=== PATIENT | male | born 1935 | race Caucasian/White ===

== ENCOUNTER 2017-08-08 23:18 | Emergency (ER) | payer MEDICARE ==
[2017-08-08 23:38] VITALS: O2SAT 96
[2017-08-08] MEDS ORDERED: Sodium Chloride 0.9% 1000 ML 1,000 ML IV SCH (23:45)
[2017-08-08] MEDS ORDERED: APRESOLINE 20 MG/ML INJ IV ONE (23:49)
--- NOTE | 2017-08-09 00:04 | ERPHSYRPT ---
- History of Present Illness Time Seen by Provider: 08/08/17 23:50 Exam Limitations: other Patient Subjective Stated Complaint: increased BP x 3-4 days, PMD notified client to come seek eval in ER Triage Nursing Assessment: increased BP, no other symptoms on assessment. Physician History: PATIENT WITH A HISTORY OF HYPERTENSION COMPLAINS OF ELEVATE BLOOD PRESSURE FOR 4 -5 DAYS. HAS HISTORY OF TRANSIENT ISCHEMIC ATTACK. DENIES HEADACHE, BLURRED VISION, DIZZINESS, NUMGNESSS, TINGLTINT OR WEAKNESS IN EXTREMITIES. Timing/Duration: day(s) Severity: moderate Modifying Factors: Improves With: nothing Associated Symptoms: denies symptoms Allergies/Adverse Reactions: No Known Drug Allergies Allergy (Verified 02/03/15 17:25) Home Medications: Aspirin [Aspir 81] 81 mg PO DAILY 07/23/12 [History] Ferrous Sulfate 325 mg [Feosol 325 mg] 325 mg PO DAILY 09/21/12 [History] Folic Acid 1 mg [Folate 1 mg] 1 mg PO DAILY 09/21/12 [History] Glipizide/Metformin HCl [Glipizide-Metformin 5-500 mg] 2 each PO BID 09/21/12 [ History] Isosorbide Mononitrate 30 mg [Imdur 30 MG] 30 mg PO DAILY 09/21/12 [History ] Potassium Chloride 10 Meq Tab* [Klor Con 10 MEQ] 10 meq PO BID 09/21/12 [ History] Pravastatin Sodium 10 mg [Pravachol 10 MG] 10 mg PO HS 09/21/12 [History] Carvedilol 6.25 mg [Coreg 6.25 MG] 6.25 mg PO BID 02/04/15 [History] Clopidogrel Bisulfate 75 mg [PLAVIX 75 MG Tablet] 75 mg PO DAILY 02/04/15 [History] Lisinopril/Hydrochlorothiazide [Lisinopril-Hctz 20-25 mg Tab] 1 each PO DAILY [History] Naproxen Sodium 220 mg [Aleve 220 MG] 220 mg PO BIDPRN PRN 02/04/15 [ History] Ranitidine HCl [Zantac] 150 mg PO BID 02/04/15 [History] Tamsulosin HCl 0.4 mg [Flomax 0.4 MG] 1 tab PO DAILY 08/08/17 [History] Vitamin E 1 tab PO BID 08/08/17 [History] Hx Tetanus, Diphtheria Vaccination/Date Given: Yes Hx Influenza Vaccination/Date Given: Yes Hx Pneumococcal Vaccination/Date Given: Yes Immunizations Up to Date: Yes - Review of Systems Constitutional: No Fever, No Chills Eyes: No Symptoms Ears, Nose, & Throat: No Symptoms Respiratory: No Symptoms, No Cough, No Dyspnea Cardiac: No Symptoms, No Chest Pain, No Edema, No Syncope Abdominal/Gastrointestinal: No Symptoms, No Abdominal Pain, No Nausea, No Vomiting, No Diarrhea Genitourinary Symptoms: No Symptoms, No Dysuria Musculoskeletal: No Symptoms, No Back Pain, No Neck Pain Skin: No Rash Neurological: No Dizziness, No Focal Weakness, No Sensory Changes Psychological: No Symptoms Endocrine: No Symptoms All Other Systems: Reviewed and Negative - Past Medical History Pertinent Past Medical History: Yes Neurological History: TIA ENT History: No Pertinent History Cardiac History: Congenital Heart Disease, Hypertension Endocrine Medical History: Diabetes Type II Musculoskeletal History: Osteoarthritis - Past Surgical History Past Surgical History: Yes Cardiac: Cardiac Stent Gastrointestinal: Hernia Repair Musculoskeletal: Orthopedic Surgery Other Surgical History: Nasal surgery - Social History Smoking Status: Never smoker Exposure to second hand smoke: No Drug Use: none Patient Lives Alone: Yes Significant Family History: no pertinent family hx - Nursing Vital Signs Nursing Vital Signs: Initial Vital Signs Pulse Rate 70 08/08/17 23:37 Respiratory Rate 20 08/08/17 23:37 Blood Pressure 205/113 08/08/17 23:37 O2 Sat by Pulse Oximetry 96 08/08/17 23:37 Pain Scale Pain Intensity 0 - Physical Exam General Appearance: no apparent distress, alert Eye Exam: PERRL/EOMI, eyes nml inspection Ears, Nose, Throat Exam: normal ENT inspection, TMs normal, pharynx normal, moist mucous membranes Neck Exam: normal inspection, non-tender, supple, full range of motion Respiratory Exam: normal breath sounds, lungs clear, No respiratory distress Cardiovascular Exam: regular rate/rhythm, normal heart sounds, normal peripheral pulses Gastrointestinal/Abdomen Exam: soft, normal bowel sounds, No tenderness, No mass Back Exam: normal inspection, normal range of motion, No CVA tenderness, No vertebral tenderness Extremity Exam: normal inspection, normal range of motion, pelvis stable Neurologic Exam: alert, oriented x 3, cooperative, normal mood/affect, nml cerebellar function, nml station & gait, sensation nml, No motor deficits Skin Exam: normal color, warm, dry, No rash Lymphatic Exam: No adenopathy SpO2 Interpretation: normal SpO2: 96 Oxygen Delivery: Room Air - Course EKG Interpreted by Me: RATE, Sinus Rhythm, NORMAL AXIS Ordered Tests: Active Orders 24 hr Category Date Time Status Python Developer STAT Care 08/08/17 23:46 Active EKG-ER Only STAT Care 08/08/17 23:46 Active Oxygen-ED Only NASAL CANNULA 2 lpm Care 08/08/17 23:46 Active CHEST 1 VIEW (PORTABLE) Stat Exams 08/08/17 23:46 Taken TROPONIN Q3H Lab 08/09/17 02:46 Ordered TROPONIN Q3H Lab 08/09/17 05:46 Ordered TROPONIN Q3H Lab 08/09/17 08:46 Ordered TROPONIN Q3H Lab 08/09/17 11:46 Ordered Medication Summary Generic Name Dose Route Start Last Admin Trade Name Freq PRN Reason Stop Dose Admin Sodium Chloride 1,000 mls @ 50 mls/hr 08/08/17 23:45 08/09/17 00:35 Sodium Chloride 0.9% 1000 Ml IV 09/07/17 23:44 50 mls/hr .Q20H ART Administration Discontinued Medications Generic Name Dose Route Start Last Admin Trade Name Freq PRN Reason Stop Dose Admin Hydralazine HCl 20 mg 08/08/17 23:49 08/09/17 00:36 Apresoline 20 Mg/Ml Inj IV 08/08/17 23:50 20 mg STAT ONE Administration Hydralazine HCl Confirm 08/09/17 00:11 Apresoline 20 Mg/Ml Inj Administered 08/09/17 00:12 Dose 20 mg .ROUTE .STK-MED ONE Metoprolol Tartrate 2.5 mg 08/09/17 01:07 08/09/17 01:12 Lopressor 5 Mg/5 Ml Injection IV 08/09/17 01:08 Not Given STAT ONE Lab/Rad Data: Laboratory Result Diagrams 08/08/17 00:30 08/08/17 00:30 Laboratory Results 08/08/17 08/08/17 08/08/17 Range/Units 00:30 00:30 00:30 WBC 5.9 (4.0-10.5) K/mm3 RBC 4.13 (4.1-5.6) M/mm3 Hgb 13.2 (12.5-18.0) gm/dl Hct 40.0 L (42-50) % MCV 96.9 (78-100) fl MCH 32.0 (26-32) pg MCHC 33.0 (32-36) g/dl RDW 13.2 (11.5-14.0) % Plt Count 174 (150-450) K/mm3 MPV 10.9 H (6-9.5) fl Gran % 53.5 (36.0-66.0) % Lymphocytes % 30.0 (24.0-44.0) % Monocytes % 13.3 H (0.0-12.0) % Eosinophils % 2.9 (0.00-5.0) % Basophils % 0.3 (0.0-0.4) % Basophils # 0.02 (0-0.4) INR 0.94 (0.8-3.0) Sodium 141 (136-145) mEq/L Potassium 4.1 (3.5-5.1) mEq/L Chloride 106 (98-107) mEq/L Carbon Dioxide 22.8 (21-32) mEq/L Anion Gap 16.5 H (5-15) MEQ/L BUN 27 H (9-20) mg/dL Creatinine 1.46 H (0.55-1.30) mg/dl Estimated GFR 49 ML/MIN Glucose 176 H (70-110) MG/DL Calcium 9.3 (8.5-10.1) mg/dL Total Bilirubin 0.20 (0.2-1.0) mg/dL AST 16 (15-37) U/L ALT 23 (12-78) U/L Alkaline Phosphatase 73 (46-116) U/L Troponin I (0.000-0.056) ng/ml NT-Pro-B Natriuret Pep 155 (0-450) pg/ml Serum Total Protein 6.6 (6.4-8.2) gm/dL Albumin 3.4 (3.4-5.0) g/dL 08/08/17 Range/Units 00:30 WBC (4.0-10.5) K/mm3 RBC (4.1-5.6) M/mm3 Hgb (12.5-18.0) gm/dl Hct (42-50) % MCV (78-100) fl MCH (26-32) pg MCHC (32-36) g/dl RDW (11.5-14.0) % Plt Count (150-450) K/mm3 MPV (6-9.5) fl Gran % (36.0-66.0) % Lymphocytes % (24.0-44.0) % Monocytes % (0.0-12.0) % Eosinophils % (0.00-5.0) % Basophils % (0.0-0.4) % Basophils # (0-0.4) INR (0.8-3.0) Sodium (136-145) mEq/L Potassium (3.5-5.1) mEq/L Chloride (98-107) mEq/L Carbon Dioxide (21-32) mEq/L Anion Gap (5-15) MEQ/L BUN (9-20) mg/dL Creatinine (0.55-1.30) mg/dl Estimated GFR ML/MIN Glucose (70-110) MG/DL Calcium (8.5-10.1) mg/dL Total Bilirubin (0.2-1.0) mg/dL AST (15-37) U/L ALT (12-78) U/L Alkaline Phosphatase (46-116) U/L Troponin I < 0.017 (0.000-0.056) ng/ml NT-Pro-B Natriuret Pep (0-450) pg/ml Serum Total Protein (6.4-8.2) gm/dL Albumin (3.4-5.0) g/dL - Progress Progress Note: 08/09/17 00:05 IV HADRALAZINE 08/09/17 00:08 IV HYDRALAZINE 20MG. 08/09/17 02:31 BP IMPORVED TO BP 166/[address] Ponce (DISCUSSED WITH DR PONCE AT 0230 FOR FOLLOWUP IN OFFICE TODAY.) Counseled pt/family regarding: lab results, diagnosis, rad results - Departure Time of Disposition: 02:35 Departure Disposition: Home Clinical Impression: HYPERTENSION Condition: Stable Critical Care Time: No Referrals: TIMOTHY PONCE MD [Primary Care Provider] - Additional Instructions: BEGIN TAKING HYDRALAZINE 10MG TWICE DAILY FOR 2 WEEKS/ CALL DR PONCE TODAY TO SCHEDULED APPOINTMENT Prescriptions: Hydralazine HCl 10 mg PO BID #30 tablet Hydralazine HCl 10 mg PO BID #30 tablet
[2017-08-09] MEDS ORDERED: APRESOLINE 20 MG/ML INJ ONE (00:11)
[2017-08-09] MEDS ORDERED: Sodium Chloride 0.9% 1000 ML 1,000 ML ONE (00:11)
[2017-08-09 00:37] LABS: BASOPHIL % 0.3 % (0.0-0.4); Basophil (Absolute #) 0.02 (0-0.4); Eosinophil % 2.9 % (0.00-5.0); Eosinophil (Absolute #) 0.17 (0-0.5); Granulocyte Absolute (ANC) 3.14 (1.4-6.9); Granulocytes % 53.5 % (36.0-66.0); Hemoglobin 13.2 gm/dl (12.5-18.0); Lymphocyte (Absolute #) 1.76 (1.0-4.6); Mean Cell Volume 96.9 fl (78-100); Mean Platelet Volume 10.9 fl (6-9.5); Monocyte (Absolute #) 0.78 (0.0-1.3); Monocytes % 13.3 % (0.0-12.0); Platelet Count 174 K/mm3 (150-450); Red Blood Count 4.13 M/mm3 (4.1-5.6); Red Cell Distribution Width 13.2 % (11.5-14.0); White Blood Count 5.9 K/mm3 (4.0-10.5)
[2017-08-09 00:50] LABS: INR 0.94 (0.8-3.0)
[2017-08-09 01:06] LABS: ALBUMIN 3.4 g/dL (3.4-5.0); ANION GAP 16.5 MEQ/L (5-15); BILIRUBIN,TOTAL 0.2 mg/dL (0.2-1.0); Calcium 9.3 mg/dL (8.5-10.1); Carbon Dioxide 22.8 mEq/L (21-32); Creatinine 1 1.46 mg/dl (0.55-1.30); Potassium 4.1 mEq/L (3.5-5.1); Total Protein 6.6 gm/dL (6.4-8.2)
[2017-08-09] MEDS ORDERED: LOPRESSOR 5 MG/5 ML INJECTION IV ONE (01:07)
[2017-08-09 01:51] VITALS: BP 138/78
[2017-08-09 02:41] VITALS: PULSE 71
--- NOTE | 2017-08-09 08:52 | XRAY ---
Indication: Cough. Comparison: February 16, 2015. Portable chest is clear. Heart and mediastinal structures within normal limits. Bony thorax intact again with mild osteopenia and degenerative changes. Impression: Nonacute chest.
== END 2017-08-09 03:00 | disposition home or self-care (01) ==
LOC: ED 23:18
DX: I10 Essential (primary) hypertension (principal); E11.9 Type 2 diabetes mellitus without complications; Z79.4 Long term (current) use of insulin; M19.90 Unspecified osteoarthritis, unspecified site; I51.9 Heart disease, unspecified; Z86.73 Personal history of transient ischemic attack (TIA), and cerebral infarction without residual deficits; Z79.899 Other long term (current) drug therapy
CPT/HCPCS: 36000; 36415; 71045; 80053; 83880; 84484; 85025; 85610; 93005; 93041; 96360; 96361; 96374; 99284; J0360

== ENCOUNTER 2017-08-30 14:39 | Observation (INO) | payer MEDICARE ==
[2017-08-30] MEDS ORDERED: Sodium Chloride 0.9% 1000 ML 1,000 ML IV STA (15:41)
--- NOTE | 2017-08-30 15:41 | ERPHSYRPT ---
- History of Present Illness Time Seen by Provider: 08/30/17 15:39 Source: patient, EMS Exam Limitations: other (dementia) Patient Subjective Stated Complaint: DIZZINESS FOR SEVERAL DAYS GETTING WORSE TODAY. STATES IT STARTED AFTER MEDICATION ADJUSTMENT FOR B/P MEDS RECENTLY. Triage Nursing Assessment: SKIN W/D, COLOR NORMAL, RESP EASY. V/S NORMAL. DENIES ANY PAIN. Physician History: The patient is a pleasantly forgetful 82-year-old male brought in by ambulance from home where he says he has been dizzy and lightheaded for several weeks. He is a very poor historian. He denies any headache. He denies nausea or vomiting. Approximate 3 weeks ago he was seen in this ER and was noted to have very high blood pressure. He was treated and has followed up with his primary care physician with several medication changes for high blood pressure. He states that his vision is also blurry for the past several days as well. He states that a year ago he fell striking his head on the concrete floor. He denies numbness or tingling. His past medical history significant for BPH, GERD , high cholesterol, hypertension, diabetes. Timing/Duration: week(s) (3), other (unknown) Severity: moderate Associated Symptoms: denies symptoms Allergies/Adverse Reactions: No Known Drug Allergies Allergy (Verified 08/30/17 15:22) Home Medications: Aspirin [Aspir 81] 81 mg PO DAILY 07/23/12 [History] Ferrous Sulfate 325 mg [Feosol 325 mg] 325 mg PO DAILY 09/21/12 [History] Glipizide/Metformin HCl [Glipizide-Metformin 5-500 mg] 2 each PO BID 09/21/12 [ History] Isosorbide Mononitrate 30 mg [Imdur 30 MG] 30 mg PO DAILY 09/21/12 [History ] Potassium Chloride 10 Meq Tab* [Klor Con 10 MEQ] 10 meq PO BID 09/21/12 [ History] Pravastatin Sodium 10 mg [Pravachol 10 MG] 10 mg PO HS 09/21/12 [History] Carvedilol 6.25 mg [Coreg 6.25 MG] 6.25 mg PO BID 02/04/15 [History] Clopidogrel Bisulfate 75 mg [PLAVIX 75 MG Tablet] 75 mg PO DAILY 02/04/15 [History] Lisinopril/Hydrochlorothiazide [Lisinopril-Hctz 20-25 mg Tab] 1 each PO DAILY [History] Ranitidine HCl [Zantac] 150 mg PO BID 02/04/15 [History] Tamsulosin HCl 0.4 mg [Flomax 0.4 MG] 1 tab PO DAILY 08/08/17 [History] Vitamin E 1 tab PO BID 08/08/17 [History] Empagliflozin [Jardiance] 25 mg PO DAILY 08/30/17 [History] Hx Tetanus, Diphtheria Vaccination/Date Given: No Hx Influenza Vaccination/Date Given: Yes Hx Pneumococcal Vaccination/Date Given: Yes - Review of Systems Constitutional: No Fever, No Chills Eyes: No Symptoms Ears, Nose, & Throat: No Symptoms Respiratory: No Cough, No Dyspnea Cardiac: No Chest Pain, No Edema, No Syncope Abdominal/Gastrointestinal: No Abdominal Pain, No Nausea, No Vomiting, No Diarrhea Genitourinary Symptoms: No Dysuria Musculoskeletal: No Back Pain, No Neck Pain Skin: No Rash Neurological: Dizziness Psychological: No Symptoms Endocrine: No Symptoms Hematologic/Lymphatic: No Symptoms Immunological/Allergic: No Symptoms All Other Systems: Reviewed and Negative - Past Medical History Pertinent Past Medical History: Yes Neurological History: TIA ENT History: No Pertinent History Cardiac History: Congenital Heart Disease, Hypertension Endocrine Medical History: Diabetes Type II Musculoskeletal History: Osteoarthritis - Past Surgical History Past Surgical History: Yes Cardiac: Cardiac Stent Gastrointestinal: Hernia Repair Musculoskeletal: Orthopedic Surgery Other Surgical History: Nasal surgery - Social History Smoking Status: Never smoker Exposure to second hand smoke: No Drug Use: none Patient Lives Alone: No Significant Family History: no pertinent family hx - Nursing Vital Signs Nursing Vital Signs: Initial Vital Signs Temperature 97.8 F 08/30/17 15:07 Pulse Rate 54 L 08/30/17 15:07 Respiratory Rate 16 08/30/17 15:07 Blood Pressure 120/66 08/30/17 15:07 O2 Sat by Pulse Oximetry 97 08/30/17 15:07 Pain Scale Pain Intensity 0 - Physical Exam General Appearance: no apparent distress, alert Eye Exam: PERRL/EOMI, eyes nml inspection Ears, Nose, Throat Exam: normal ENT inspection, TMs normal, pharynx normal, moist mucous membranes Neck Exam: normal inspection, non-tender, supple, full range of motion Respiratory Exam: normal breath sounds, lungs clear, No respiratory distress Cardiovascular Exam: regular rate/rhythm, normal heart sounds, normal peripheral pulses Gastrointestinal/Abdomen Exam: soft, normal bowel sounds, No tenderness, No mass Rectal Exam: not done Back Exam: normal inspection, normal range of motion, No CVA tenderness, No vertebral tenderness Extremity Exam: normal inspection, normal range of motion, pelvis stable Neurologic Exam: alert, oriented x 3, cooperative, cable installation technician II-XII nml as tested, normal mood/affect, nml cerebellar function, nml station & gait, sensation nml, No motor deficits Skin Exam: normal color, warm, dry, No rash Lymphatic Exam: No adenopathy SpO2 Interpretation: normal SpO2: 97 Oxygen Delivery: Room Air - CT Exams Head CT Interpretation: Discussed w/radiologist, Other (I spoke with Dr. Burciaga about the patient's head CT. No large territorial infarct was seen. No evidence of acute intracranial bleed was seen. There is soft tissue density filling the right side of the ethmoid sinus. There is now partial erosion of the medial wall of the right orbit with convex outward bulging of the medial wall and to the right orbit there is slight mass effect upon the medial rectus muscle.) Ordered Tests: Active Orders 24 hr Category Date Time Status Principal Web Developer STAT Care 08/30/17 15:42 Active EKG-ER Only STAT Care 08/30/17 15:41 Active IV Insertion STAT Care 08/30/17 15:41 Active Pulse Oximetry (ED) STAT Care 08/30/17 15:41 Active CHEST 2 VIEWS (PA AND LAT) Stat Exams 08/30/17 15:44 Completed HEAD WITHOUT CONTRAST [CT] Stat Exams 08/30/17 15:42 Completed CBC W DIFF Stat Lab 08/30/17 16:50 Completed CMP Stat Lab 08/30/17 16:50 Completed ETHYL ALCOHOL Stat Lab 08/30/17 16:50 Completed TROPONIN Q3H Lab 08/30/17 16:50 Completed TROPONIN Q3H Lab 08/30/17 18:45 Ordered TROPONIN Q3H Lab 08/30/17 21:45 Ordered TROPONIN Q3H Lab 08/31/17 00:45 Ordered TROPONIN Q3H Lab 08/31/17 03:45 Ordered UA W/RFX UR CULTURE Stat Lab 08/30/17 15:42 Completed Medication Summary Discontinued Medications Generic Name Dose Route Start Last Admin Trade Name Daniella PRN Reason Stop Dose Admin Sodium Chloride 1,000 mls @ 999 mls/hr 08/30/17 15:41 08/30/17 16:21 Sodium Chloride 0.9% 1000 Ml IV 08/30/17 16:41 999 mls/hr .Q1H1M STA Administration Sodium Chloride Confirm 08/30/17 16:21 Sodium Chloride 0.9% 1000 Ml Administered 08/30/17 16:22 Dose 1,000 mls @ ud .ROUTE .STK-MED ONE Lab/Rad Data: Laboratory Result Diagrams 08/30/17 16:50 08/30/17 16:50 Laboratory Results 08/30/17 08/30/17 08/30/17 Range/Units 16:50 16:50 16:50 WBC 4.9 (4.0-10.5) K/mm3 RBC 3.87 L (4.1-5.6) M/mm3 Hgb 12.8 (12.5-18.0) gm/dl Hct 37.7 L (42-50) % MCV 97.4 (78-100) fl MCH 33.0 H (26-32) pg MCHC 34.0 (32-36) g/dl RDW 12.7 (11.5-14.0) % Plt Count 200 (150-450) K/mm3 MPV 10.4 H (6-9.5) fl Gran % 56.2 (36.0-66.0) % Lymphocytes % 28.8 (24.0-44.0) % Monocytes % 12.4 H (0.0-12.0) % Eosinophils % 2.4 (0.00-5.0) % Basophils % 0.2 (0.0-0.4) % Basophils # 0.01 (0-0.4) Sodium 140 (136-145) mEq/L Potassium 3.9 (3.5-5.1) mEq/L Chloride 107 (98-107) mEq/L Carbon Dioxide 24.3 (21-32) mEq/L Anion Gap 12.9 (5-15) MEQ/L BUN 29 H (9-20) mg/dL Creatinine 1.38 H (0.55-1.30) mg/dl Estimated GFR 52 ML/MIN Glucose 184 H (70-110) MG/DL Calcium 9.4 (8.5-10.1) mg/dL Total Bilirubin 0.50 (0.2-1.0) mg/dL AST 15 (15-37) U/L ALT 23 (12-78) U/L Alkaline Phosphatase 50 (46-116) U/L Troponin I < 0.017 (0.000-0.056) ng/ml Serum Total Protein 6.2 L (6.4-8.2) gm/dL Albumin 3.2 L (3.4-5.0) g/dL Ur Collection Type Urine Color (YELLOW) Urine Appearance (CLEAR) Urine pH (5-6) Ur Specific [place] (1.005-1.025) Urine Protein (Negative) Urine Ketones (NEGATIVE) Urine Blood (0-5) [place]/ul Urine Nitrite (NEGATIVE) Urine Bilirubin (NEGATIVE) Urine Urobilinogen (0-1) mg/dL Ur Leukocyte Esterase (NEGATIVE) Urine Culture Reflexed (NO) Urine Glucose (NEGATIVE) mg/dL Ethyl Alcohol < 0.010 (0.00-0.01) % Specimen Received 08/30/17 Range/Units 15:42 WBC (4.0-10.5) K/mm3 RBC (4.1-5.6) M/mm3 Hgb (12.5-18.0) gm/dl Hct (42-50) % MCV (78-100) fl MCH (26-32) pg MCHC (32-36) g/dl RDW (11.5-14.0) % Plt Count (150-450) K/mm3 MPV (6-9.5) fl Gran % (36.0-66.0) % Lymphocytes % (24.0-44.0) % Monocytes % (0.0-12.0) % Eosinophils % (0.00-5.0) % Basophils % (0.0-0.4) % Basophils # (0-0.4) Sodium (136-145) mEq/L Potassium (3.5-5.1) mEq/L Chloride (98-107) mEq/L Carbon Dioxide (21-32) mEq/L Anion Gap (5-15) MEQ/L BUN (9-20) mg/dL Creatinine (0.55-1.30) mg/dl Estimated GFR ML/MIN Glucose (70-110) MG/DL Calcium (8.5-10.1) mg/dL Total Bilirubin (0.2-1.0) mg/dL AST (15-37) U/L ALT (12-78) U/L Alkaline Phosphatase (46-116) U/L Troponin I (0.000-0.056) ng/ml Serum Total Protein (6.4-8.2) gm/dL Albumin (3.4-5.0) g/dL Ur Collection Type CLEAN CATCH Urine Color LT.YELLOW (YELLOW) Urine Appearance CLEAR (CLEAR) Urine pH 5.0 (5-6) Ur Specific [place] 1.010 (1.005-1.025) Urine Protein NEGATIVE (Negative) Urine Ketones NEGATIVE (NEGATIVE) Urine Blood NEGATIVE (0-5) [place]/ul Urine Nitrite NEGATIVE (NEGATIVE) Urine Bilirubin NEGATIVE (NEGATIVE) Urine Urobilinogen NORMAL (0-1) mg/dL Ur Leukocyte Esterase NEGATIVE (NEGATIVE) Urine Culture Reflexed NO (NO) Urine Glucose NEGATIVE (NEGATIVE) mg/dL Ethyl Alcohol (0.00-0.01) % Specimen Received 08/30/17 1615 - Progress Progress: improved Discussed with : Bladimir Will see patient in: hospital (observation) Counseled pt/family regarding: lab results, diagnosis, rad results - Departure Time of Disposition: 17:49 Departure Disposition: Observation (per Dr Ponce) Clinical Impression: Dizziness, Disorder of ethmoidal sinus Condition: Stable Critical Care Time: No Referrals: TIMOTHY PONCE MD [Primary Care Provider] -
[2017-08-30 16:19] LABS: Appearance CLEAR (CLEAR); Bilirubin NEGATIVE (NEGATIVE); Blood NEGATIVE Ery/ul (0-5); Glucose NEGATIVE (NEGATIVE); Ketones NEGATIVE (NEGATIVE); Leukocyte Esterase NEGATIVE (NEGATIVE); Nitrite NEGATIVE (NEGATIVE); Protein,Urine Dip NEGATIVE (Negative); Urobilinogen NORMAL mg/dL (0-1)
[2017-08-30] MEDS ORDERED: Sodium Chloride 0.9% 1000 ML 1,000 ML ONE (16:21)
[2017-08-30 17:08] LABS: BASOPHIL % 0.2 % (0.0-0.4); Basophil (Absolute #) 0.01 (0-0.4); Eosinophil % 2.4 % (0.00-5.0); Eosinophil (Absolute #) 0.12 (0-0.5); Granulocyte Absolute (ANC) 2.77 (1.4-6.9); Granulocytes % 56.2 % (36.0-66.0); Hematocrit 37.7 % (42-50); Hemoglobin 12.8 gm/dl (12.5-18.0); Lymphocyte (Absolute #) 1.42 (1.0-4.6); Lymphocytes % 28.8 % (24.0-44.0); Mean Cell Volume 97.4 fl (78-100); Mean Platelet Volume 10.4 fl (6-9.5); Monocyte (Absolute #) 0.61 (0.0-1.3); Monocytes % 12.4 % (0.0-12.0); Platelet Count 200 K/mm3 (150-450); Red Blood Count 3.87 M/mm3 (4.1-5.6); Red Cell Distribution Width 12.7 % (11.5-14.0); White Blood Count 4.9 K/mm3 (4.0-10.5)
--- NOTE | 2017-08-30 17:15 | XRAY ---
Exam: CT of the head without IV contrast from 08/30/2017. CTDI: 69.11 Comparison: CT of the head without IV contrast from 11/11/2008. Indication: Dizziness, confusion, elevated blood pressure. Technique: Non-IV contrast axial images were obtained through the brain. Reconstructed coronal and sagittal images were created and reviewed. Findings: The ventricles reveal at least moderate diffuse enlargement, but are midline. I also note significant prominence of the cortical sulci, sylvian fissures, and basilar cisterns. These findings are consistent with worsening global cerebral volume loss/atrophy. I see no focal mass effect or midline shift. There is no evidence of acute intracranial bleed or abnormal extra-axial fluid collection. No large territorial infarct is seen. However, there are multiple small low-attenuation densities within within both external capsules, left greater than right, consistent with lacunar infarcts and chronic small vessel ischemic disease. There is also a tiny low-attenuation density within the posterior limb of the internal capsule on the right on axial image #20. Also, mild bilateral periventricular low attenuation density is seen suggesting small vessel ischemic disease. Aside from generalized cerebellar atrophy, no significant focal finding is seen within the cerebellum. Vascular calcification is seen within both distal vertebral arteries. There is tortuosity of the basilar artery. Significant vascular calcification is seen within the cavernous portion of the internal carotid arteries. The calvarium of the skull reveals no fracture or focal bone lesion. However, dense opacification is seen within the right side of the ethmoid sinus. The medial wall of the right orbit appears thin and now bulges laterally and has a mild convex contour causing some mass effect upon the intraorbital contents of the right. For example, see axial images #2 through #7. On image #5 and #6, this soft tissue density appears to cause some mass effect upon the medial rectus muscle. Although this soft tissue density is also seen within the right ethmoid sinus on the exam of 11/11/2008, there was no outward bowing of the medial wall of the right orbit at that time. 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 ENT and/or neurology consult is recommended. I also again see soft tissue density filling a small right frontal sinus. This is unchanged. Minimal mucosal thickening is seen at the upper posterior margin of the right maxillary sinus. The mastoid air cells appear unremarkable. Impression: 1. Moderate generalized global atrophy and brain volume loss are seen which have progressed as compared to 11/11/2008. I also see evidence of chronic microvascular disease and perhaps small lacunar infarcts, as discussed above. A large territorial infarct is not seen. 2. Nor do I see evidence of acute intracranial bleed or abnormal extra-axial fluid collection. 3. I again see soft tissue density filling the right side of the ethmoid sinus. However, there is now partial erosion of the medial wall of the right orbit with convex outward bulging of the medial wall into the right orbit. In fact, I believe this touches and causes slight mass effect upon the medial rectus muscle. This is new from the prior exam of 11/11/2008. 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 ENT and/or neurology consultation is recommended.
--- NOTE | 2017-08-30 17:16 | XRAY ---
Exam: Two-view chest from 08/30/2017. Comparison: AP portable chest film from 08/08/2017. Indication: Dizziness. Findings: Upright PA and lateral chest films are submitted for evaluation. The heart size and contour are normal. Atherosclerotic vascular calcification is seen within the aortic arch. There is slight tortuosity of the descending thoracic aorta. The remainder of the eliezer and mediastinal structures appears unremarkable. There is adequate inflation of the lungs. No air space infiltrates, vascular congestion, pneumothorax, or pleural fluid is seen. Minimal lower thoracic dextroscoliosis, moderate thoracic vertebral endplate spurring, and bone demineralization are seen. Impression: 1. No acute cardiopulmonary disease is seen. The findings are unchanged from 08/08/2017.
[2017-08-30 17:27] LABS: ALBUMIN 3.2 g/dL (3.4-5.0); ALKALINE PHOSPHATASE 50 U/L (46-116); ANION GAP 12.9 MEQ/L (5-15); BLOOD UREA NITROGEN 29 mg/dL (9-20); CHLORIDE 107 mEq/L (98-107); Calcium 9.4 mg/dL (8.5-10.1); Carbon Dioxide 24.3 mEq/L (21-32); Creatinine 1 1.38 mg/dl (0.55-1.30); Glucose 184 MG/DL (70-110); Potassium 3.9 mEq/L (3.5-5.1); SGOT/AST 15 U/L (15-37); SGPT/ALT 23 U/L (12-78); SODIUM 140 mEq/L (136-145); Total Protein 6.2 gm/dL (6.4-8.2)
[2017-08-30 17:29] LABS: ETHYL ALCOHOL < 0.010 % (0.00-0.01)
[2017-08-30] MEDS ORDERED: TYLENOL 325 MG PO PRN (19:21)
[2017-08-30] MEDS ORDERED: Zofran 4 MG/2 ML VIAL IV PRN (19:21)
[2017-08-30] MEDS ORDERED: Zocor 10MG PO SCH (22:00)
[2017-08-30] MEDS ORDERED: hydroDIURIL 25 MG ONE (22:11)
[2017-08-30] MEDS ORDERED: Zestril 20 MG ONE (22:13)
[2017-08-30] MEDS: Coreg 6.25 MG PO SCH (22:22)
[2017-08-30] MEDS: Zestril 20 MG*** 20 MG, hydroDIURIL 25 MG*** 25 MG PO SCH ×2 (22:23)
[2017-08-30] MEDS: Zocor 10MG PO SCH (22:25)
[2017-08-30] MEDS: Pepcid 20 MG PO SCH (22:26)
[2017-08-30] MEDS: Apresoline 25 MG TABLET PO SCH (22:26)
[2017-08-30] MEDS: Sodium Chloride 0.9% 1000 ML 1,000 ML IV SCH (22:35)
[2017-08-30] MEDS: Klor Con 10 MEQ PO SCH (22:59)
[2017-08-31 04:31] LABS: BASOPHIL % 0.6 % (0.0-0.4); Basophil (Absolute #) 0.03 (0-0.4); Eosinophil % 2.4 % (0.00-5.0); Eosinophil (Absolute #) 0.13 (0-0.5); Granulocyte Absolute (ANC) 3.01 (1.4-6.9); Granulocytes % 55.3 % (36.0-66.0); Hemoglobin 12.7 gm/dl (12.5-18.0); Lymphocyte (Absolute #) 1.53 (1.0-4.6); Lymphocytes % 28.1 % (24.0-44.0); Mean Cell Volume 96.9 fl (78-100); Mean Corpuscular Hgb Concent. 33.4 g/dl (32-36); Mean Platelet Volume 10.1 fl (6-9.5); Monocyte (Absolute #) 0.74 (0.0-1.3); Monocytes % 13.6 % (0.0-12.0); Platelet Count 189 K/mm3 (150-450); Red Blood Count 3.92 M/mm3 (4.1-5.6); Red Cell Distribution Width 12.7 % (11.5-14.0); White Blood Count 5.4 K/mm3 (4.0-10.5)
[2017-08-31 04:55] LABS: Mean Corpuscular Hemoglobin 32.3 pg (26-32)
[2017-08-31 05:17] LABS: ANION GAP 13.9 MEQ/L (5-15); BLOOD UREA NITROGEN 25 mg/dL (9-20); CHLORIDE 107 mEq/L (98-107); Calcium 9.5 mg/dL (8.5-10.1); Creatinine 1 1.21 mg/dl (0.55-1.30); Glucose 135 MG/DL (70-110); Potassium 4.1 mEq/L (3.5-5.1); SODIUM 141 mEq/L (136-145)
[2017-08-31] MEDS ORDERED: HYDRALAZINE HCL PO SCH (09:00)
[2017-08-31] MEDS ORDERED: MEDICATION INTERVENTION PO SCH (09:00)
[2017-08-31] MEDS: Flomax 0.4 MG PO SCH (09:55)
[2017-08-31] MEDS: PLAVIX 75 MG Tablet PO SCH (09:55)
[2017-08-31] MEDS: FEOSOL 325 MG PO SCH (09:55)
[2017-08-31] MEDS: Klor Con 10 MEQ PO SCH ×2 (09:55→23:01)
[2017-08-31] MEDS: ECOTRIN 81 MG PO SCH (09:56)
[2017-08-31] MEDS: Glucotrol 5 MG PO SCH ×2 (09:56→17:10)
[2017-08-31] MEDS: Imdur 30 MG PO SCH (09:56)
[2017-08-31] MEDS: Apresoline 25 MG TABLET PO SCH ×4 (09:56→23:00)
[2017-08-31] MEDS: Pepcid 20 MG PO SCH ×2 (09:56→23:01)
[2017-08-31] MEDS: Coreg 6.25 MG PO SCH ×2 (09:56→23:01)
[2017-08-31] MEDS: Sodium Chloride 0.9% 1000 ML 1,000 ML IV SCH (09:56)
[2017-08-31] MEDS: Glucophage 500 MG PO SCH ×2 (09:56→17:10)
[2017-08-31] MEDS: Vitamin E 400 UNIT SOFTGEL PO SCH (09:57)
[2017-08-31] MEDS ORDERED: Zestril 20 MG*** 20 MG, hydroDIURIL 25 MG*** 25 MG PO SCH ×2 (10:00)
[2017-08-31] MEDS ORDERED: VITAMIN E PO SCH (10:00)
[2017-08-31] MEDS ORDERED: NON-FORMULARY ITEM (Empagliflozin [Jardiance] 25 MG) PO SCH (10:00)
[2017-08-31] MEDS ORDERED: GLIPIZIDE PO SCH (10:00)
[2017-08-31] MEDS ORDERED: NON-FORMULARY ITEM (Lisinopril/Hydrochlorothiazide [Lisinopril-Hctz 20-25 Mg Tab] 1 EACH) PO SCH (10:00)
[2017-08-31] MEDS ORDERED: METFORMIN HCL PO SCH (10:00)
[2017-08-31] MEDS: Zestril 20 MG*** 20 MG, hydroDIURIL 25 MG*** 25 MG PO SCH ×4 (10:49→22:59)
--- NOTE | 2017-08-31 12:48 | PCM.HP ---
History of Present Illness - Chief Complaint Chief Complaint: Dizziness. for 2-3 days, History of Present Illness: is a 82 year old male brought in by ambulance from home where he says he has been dizzy and lightheaded for several weeks. He is a very poor historian. He denies any headache. He denies nausea or vomiting. Approximate 3 weeks ago he was seen in this ER and was noted to have very high blood pressure. He was treated and has followed up with his primary care physician with several medication changes for high blood pressure. He states that his vision is also blurry for the past several days as well. He states that a year ago he fell striking his head on the concrete floor. He denies numbness or tingling.. - Review of Systems Constitutional: Lethargy, Weakness, No Fever, No Chills Eyes: No Symptoms Ears, Nose, & Throat: No Symptoms Respiratory: No Cough, No Short Of Breath Cardiac: No Chest Pain, No Edema, No Syncope Abdominal/Gastrointestinal: No Abdominal Pain, No Nausea, No Vomiting, No Diarrhea Genitourinary Symptoms: No Dysuria Musculoskeletal: No Back Pain, No Neck Pain Skin: No Rash Neurological: Dizziness, No Focal Weakness, No Sensory Changes Psychological: No Symptoms Endocrine: No Symptoms Hematologic/Lymphatic: No Symptoms Immunological/Allergic: No Symptoms Medications & Allergies Home Medications: Home Medication List Aspirin [Aspir 81] 81 mg PO DAILY 07/23/12 [History Confirmed 08/30/17] Ferrous Sulfate 325 mg [Feosol 325 mg] 325 mg PO DAILY 09/21/12 [History Confirmed 08/30/17] Glipizide/Metformin HCl [Glipizide-Metformin 5-500 mg] 2.5 each PO BID 09/21/12 [History Confirmed 08/30/17] Isosorbide Mononitrate 30 mg [Imdur 30 MG] 30 mg PO DAILY 09/21/12 [ History Confirmed 08/30/17] Potassium Chloride 10 Meq Tab* [Klor Con 10 MEQ] 10 meq PO BID 09/21/12 [ History Confirmed 08/30/17] Pravastatin Sodium 10 mg [Pravachol 10 MG] 10 mg PO HS 09/21/12 [History Confirmed 08/30/17] Carvedilol 6.25 mg [Coreg 6.25 MG] 6.25 mg PO BID 02/04/15 [History Confirmed 08/30/17] Clopidogrel Bisulfate 75 mg [PLAVIX 75 MG Tablet] 75 mg PO DAILY 02/04/15 [History Confirmed 08/30/17] Lisinopril/Hydrochlorothiazide [Lisinopril-Hctz 20-25 mg Tab] 1 each PO BID 12/14 [History Confirmed 08/30/17] Ranitidine HCl [Zantac] 150 mg PO BID 02/04/15 [History Confirmed 08/30/17] Tamsulosin HCl 0.4 mg [Flomax 0.4 MG] 1 tab PO DAILY 08/08/17 [History Confirmed 08/30/17] Vitamin E 1 tab PO BID 08/08/17 [History Confirmed 08/30/17] Clonidine HCl [Clonidine HCl] 0.1 mg PO DAILY 08/30/17 [History Confirmed ] Empagliflozin [Jardiance] 25 mg PO DAILY 08/30/17 [History Confirmed 08/30/17] HydrALAzine HCL 25 MG TAB [Apresoline 25 MG TABLET] 25 mg PO QID 08/30/17 [History Confirmed 08/30/17] Hydralazine HCl [Hydralazine HCl] 1 tab PO Q4H 08/30/17 [History Confirmed 08/30] Allergies/Adverse Reactions: Allergies Allergy/AdvReac Type Severity Reaction Status Date / Time No Known Drug Allergies Allergy Verified 08/30/17 15:22 - Past Medical History Past Medical History: Yes Neurological History: TIA ENT History: No Pertinent History Cardiac History: Congenital Heart Disease, Hypertension Respiratory History: No Pertinent History Endocrine Medical History: Diabetes Type II Musculoskelatal History: Osteoarthritis GI Medical History: Cirrhosis History: No Pertinent History Pyscho-Social History: No Pertinent History Male Reproductive Disorders: No Pertinent History - Past Surgical History Past Surgical History: Yes Cardiac History: Cardiac Stent GI Surgical History: Hernia Repair Musculskeletal Surgical Hx: Orthopedic Surgery Other Surgical History: Nasal surgery - Social History Smoking Status: Former smoker Exposure to second hand smoke: No Alcohol: None Drug Use: none Significant Family History: no pertinent family hx - Physical Exam Vital Signs: Vital Signs - 24 hr Temp Pulse Resp BP Pulse Ox 08/31/17 12:00 98 F 68 18 152/83 96 08/31/17 08:00 20 08/31/17 07:33 97.8 F 65 20 181/89 95 08/31/17 04:00 98.2 F 58 L 18 169/81 97 08/31/17 00:00 18 08/30/17 23:49 97.9 F 65 18 145/76 95 08/30/17 19:27 98 F 57 L 18 177/84 99 08/30/17 18:00 97 08/30/17 17:59 51 L 16 154/84 97 08/30/17 16:42 53 L 16 144/74 98 08/30/17 16:23 97 08/30/17 15:07 97.8 F 54 L 16 120/66 97 General Appearance: no apparent distress, alert Neurologic Exam: alert, oriented x 3, cooperative, normal mood/affect, nml cerebellar function, nml station & gait, sensation nml, No motor deficits Eye Exam: PERRL/EOMI, eyes nml inspection Ears, Nose, Throat Exam: normal ENT inspection, TMs normal, pharynx normal, moist mucous membranes Neck Exam: normal inspection, non-tender, supple, full range of motion Respiratory Exam: normal breath sounds, lungs clear, No respiratory distress Cardiovascular Exam: regular rate/rhythm, normal heart sounds, normal peripheral pulses Gastrointestinal/Abdomen Exam: soft, normal bowel sounds, No tenderness, No mass Back Exam: normal inspection, normal range of motion, No CVA tenderness, No vertebral tenderness Extremity Exam: normal inspection, normal range of motion, pelvis stable Skin Exam: normal color, warm, dry, No rash Lymphatic Exam: No adenopathy Results - Labs Lab/Micro Results: Accuchecks Date 08/31/17 Date 08/31/17 Date 08/30/17 Time 11:30 Time 07:30 Time 22:00 Accucheck Value: 230 Accucheck Value: 143 Accucheck Value: 173 Lab Results-Last 24 Hours 08/30/17 08/31/17 08/31/17 Range/Units 22:28 01:25 04:26 WBC (4.0-10.5) K/mm3 RBC (4.1-5.6) M/mm3 Hgb (12.5-18.0) gm/dl Hct (42-50) % MCV (78-100) fl MCH (26-32) pg MCHC (32-36) g/dl RDW (11.5-14.0) % Plt Count (150-450) K/mm3 MPV (6-9.5) fl Gran % (36.0-66.0) % Lymphocytes % (24.0-44.0) % Monocytes % (0.0-12.0) % Eosinophils % (0.00-5.0) % Basophils % (0.0-0.4) % Basophils # (0-0.4) Sodium (136-145) mEq/L Potassium (3.5-5.1) mEq/L Chloride (98-107) mEq/L Carbon Dioxide (21-32) mEq/L Anion Gap (5-15) MEQ/L BUN (9-20) mg/dL Creatinine (0.55-1.30) mg/dl Estimated GFR ML/MIN Glucose (70-110) MG/DL Hemoglobin A1c (4.5-6.2) Calcium (8.5-10.1) mg/dL Troponin I < 0.017 < 0.017 < 0.017 (0.000-0.056) ng/ml 08/31/17 08/31/17 08/31/17 Range/Units 04:26 04:26 07:45 WBC 5.4 (4.0-10.5) K/mm3 RBC 3.92 L (4.1-5.6) M/mm3 Hgb 12.7 (12.5-18.0) gm/dl Hct 38.0 L (42-50) % MCV 96.9 (78-100) fl MCH 32.3 H (26-32) pg MCHC 33.4 (32-36) g/dl RDW 12.7 (11.5-14.0) % Plt Count 189 (150-450) K/mm3 MPV 10.1 H (6-9.5) fl Gran % 55.3 (36.0-66.0) % Lymphocytes % 28.1 (24.0-44.0) % Monocytes % 13.6 H (0.0-12.0) % Eosinophils % 2.4 (0.00-5.0) % Basophils % 0.6 (0.0-0.4) % Basophils # 0.03 (0-0.4) Sodium 141 (136-145) mEq/L Potassium 4.1 (3.5-5.1) mEq/L Chloride 107 (98-107) mEq/L Carbon Dioxide 24.0 (21-32) mEq/L Anion Gap 13.9 (5-15) MEQ/L BUN 25 H (9-20) mg/dL Creatinine 1.21 (0.55-1.30) mg/dl Estimated GFR > 60 ML/MIN Glucose 135 H (70-110) MG/DL Hemoglobin A1c 7.3 H (4.5-6.2) Calcium 9.5 (8.5-10.1) mg/dL Troponin I (0.000-0.056) ng/ml Accuchecks Date 08/31/17 Date 08/31/17 Date 08/30/17 Time 11:30 Time 07:30 Time 22:00 Accucheck Value: 230 Accucheck Value: 143 Accucheck Value: 173 - Radiology Impressions Radiology Exams & Impressions: Comparison: CT of the head without IV contrast from 11/11/2008. Indication: Dizziness, confusion, elevated blood pressure. Technique: Non-IV contrast axial images were obtained through the brain. Reconstructed coronal and sagittal images were created and reviewed. Findings: The ventricles reveal at least moderate diffuse enlargement, but are midline. I also note significant prominence of the cortical sulci, sylvian fissures, and basilar cisterns. These findings are consistent with worsening global cerebral volume loss/atrophy. I see no focal mass effect or midline shift. There is no evidence of acute intracranial bleed or abnormal extra-axial fluid collection. No large territorial infarct is seen. However, there are multiple small low-attenuation densities within within both external capsules, left greater than right, consistent with lacunar infarcts and chronic small vessel ischemic disease. There is also a tiny low-attenuation density within the posterior limb of the internal capsule on the right on axial image #20. Also, mild bilateral periventricular low attenuation density is seen suggesting small vessel ischemic disease. Aside from generalized cerebellar atrophy, no significant focal finding is seen within the cerebellum. Vascular calcification is seen within both distal vertebral arteries. There is tortuosity of the basilar artery. Significant vascular calcification is seen within the cavernous portion of the internal carotid arteries. The calvarium of the skull reveals no fracture or focal bone lesion. However, dense opacification is seen within the right side of the ethmoid sinus. The medial wall of the right orbit appears thin and now bulges laterally and has a mild convex contour causing some mass effect upon the intraorbital contents of the right. For example, see axial images #2 through #7. On image #5 and #6, this soft tissue density appears to cause some mass effect upon the medial rectus muscle. Although this soft tissue density is also seen within the right ethmoid sinus on the exam of 11/11/2008, there was no outward bowing of the medial wall of the right orbit at that time. 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 ENT and/or neurology consult is recommended. I also again see soft tissue density filling a small right frontal sinus. This is unchanged. Minimal mucosal thickening is seen at the upper posterior margin of the right maxillary sinus. The mastoid air cells appear unremarkable. Impression: 1. Moderate generalized global atrophy and brain volume loss are seen which have progressed as compared to 11/11/2008. I also see evidence of chronic microvascular disease and perhaps small lacunar infarcts, as discussed above. A large territorial infarct is not seen. 2. Nor do I see evidence of acute intracranial bleed or abnormal extra-axial fluid collection. 3. I again see soft tissue density filling the right side of the ethmoid sinus. However, there is now partial erosion of the medial wall of the right orbit with convex outward bulging of the medial wall into the right orbit. In fact, I believe this touches and causes slight mass effect upon the medial rectus muscle. This is new from the prior exam of 11/11/2008. 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 ENT and/or neurology consultation is recommended. Assessment/Plan (1) Dizziness Current Visit: Yes Status: Acute Code(s): R42 - DIZZINESS AND GIDDINESS (2) Diabetes Current Visit: Yes Status: Chronic Qualifiers: Diabetes mellitus type: type 2 Diabetes mellitus complication status: with hyperglycemia Diabetes mellitus intermediate accountant insulin use: unspecified intermediate accountant insulin use status Qualified Code(s): E11.65 - Type 2 diabetes mellitus with hyperglycemia Code(s): E11.9 - TYPE 2 DIABETES MELLITUS WITHOUT COMPLICATIONS (3) Hypertension Current Visit: No Status: Chronic Qualifiers: Hypertension type: essential hypertension Qualified Code(s): I10 - Essential (primary) hypertension Code(s): I10 - ESSENTIAL (PRIMARY) HYPERTENSION
[2017-08-31] MEDS: Catapres 0.1 MG PO SCH (12:58)
[2017-08-31] MEDS ORDERED: NovoLOG Insulin SQ SCH (17:00)
[2017-08-31] MEDS: Zocor 10MG PO SCH (23:01)
[2017-09-01] MEDS: Sodium Chloride 0.9% 1000 ML 1,000 ML IV SCH (06:09)
[2017-09-01 08:00] VITALS: BP 168/80; PULSE 89; O2SAT 96
[2017-09-01] MEDS: Glucotrol 5 MG PO SCH (08:13)
[2017-09-01] MEDS: Glucophage 500 MG PO SCH (08:13)
[2017-09-01] MEDS: Catapres 0.1 MG PO SCH (09:40)
[2017-09-01] MEDS: Apresoline 25 MG TABLET PO SCH (09:40)
[2017-09-01] MEDS: Coreg 6.25 MG PO SCH (09:40)
[2017-09-01] MEDS: Flomax 0.4 MG PO SCH (09:41)
[2017-09-01] MEDS: Zestril 20 MG*** 20 MG, hydroDIURIL 25 MG*** 25 MG PO SCH ×2 (09:41)
[2017-09-01] MEDS: Klor Con 10 MEQ PO SCH (09:42)
[2017-09-01] MEDS: FEOSOL 325 MG PO SCH (09:42)
[2017-09-01] MEDS: PLAVIX 75 MG Tablet PO SCH (09:42)
[2017-09-01] MEDS: Pepcid 20 MG PO SCH (09:42)
[2017-09-01] MEDS: ECOTRIN 81 MG PO SCH (09:42)
[2017-09-01] MEDS: Imdur 30 MG PO SCH (09:43)
[2017-09-01] MEDS: Vitamin E 400 UNIT SOFTGEL PO SCH (09:44)
--- NOTE | 2017-09-01 09:54 | PCM.DS ---
Discharge Summary Date of Admission: 08/30/17 19:10 Admitting Physician: TIMOTHY PONCE Primary Care Provider: TIMOTHY PONCE Allergies Allergies No Known Drug Allergies Allergy (Verified 08/30/17 15:22) Hospital Summary - Hospital Course Hospital Course: Last Vital Signs Temp 97.7 F 09/01/17 07:59 Pulse 89 09/01/17 07:59 Resp 20 09/01/17 08:00 BP 168/80 09/01/17 07:59 Pulse Ox 96 09/01/17 07:59 Allergies No Known Drug Allergies Allergy (Verified 08/30/17 15:22) Active Medications Acetaminophen (Tylenol 325 Mg) 650 mg PO Q4H PRN PRN PRN Reason: PAIN AND/OR FEVER Stop: 09/29/17 19:20 Aspirin (Ecotrin 81 Mg) 81 mg PO DAILY [facility] Stop: 09/30/17 09:59 Last Admin: 09/01/17 09:42 Dose: 81 mg Carvedilol (Coreg 6.25 Mg) 6.25 mg PO BID [facility] Stop: 09/29/17 21:59 Last Admin: 09/01/17 09:40 Dose: 6.25 mg Clonidine (Catapres 0.1 Mg) 0.1 mg PO DAILY [facility] Stop: 09/30/17 11:59 Last Admin: 09/01/17 09:40 Dose: 0.1 mg Clopidogrel Bisulfate (Plavix 75 Mg Tablet) 75 mg PO DAILY [facility] Stop: 09/30/17 09:59 Last Admin: 09/01/17 09:42 Dose: 75 mg Lisinopril 20 mg/ (Hydrochlorothiazide 25 mg) 0 mg PO BID [facility] Stop: 09/29/17 21:59 Last Admin: 09/01/17 09:41 Dose: 20 mg Famotidine (Pepcid 20 Mg) 20 mg PO BID [facility] Stop: 09/29/17 21:59 Last Admin: 09/01/17 09:42 Dose: 20 mg Ferrous Sulfate (Feosol 325 Mg) 325 mg PO DAILY [facility] Stop: 09/30/17 09:59 Last Admin: 09/01/17 09:42 Dose: 325 mg Glipizide (Glucotrol 5 Mg) 2.5 mg PO BIDWM [facility] Stop: 09/30/17 08:59 Last Admin: 09/01/17 08:13 Dose: 2.5 mg Hydralazine HCl (Apresoline 25 Mg Tablet) 25 mg PO QID [facility] Stop: 09/29/17 21:59 Last Admin: 09/01/17 09:40 Dose: 25 mg Sodium Chloride (Sodium Chloride 0.9% 1000 Ml) 1,000 mls @ 100 mls/hr IV .Q10H [facility] Stop: 09/29/17 19:20 Last Admin: 09/01/17 06:09 Dose: 100 mls/hr Insulin Aspart (Novolog Insulin) 0 unit SQ UD [facility] Stop: 09/30/17 16:59 Last Admin: 08/31/17 17:17 Dose: 2 unit Isosorbide Mononitrate (Imdur 30 Mg) 30 mg PO DAILY [facility] Stop: 09/30/17 09:59 Last Admin: 09/01/17 09:43 Dose: 30 mg Metformin HCl (Glucophage 500 Mg) 500 mg PO BIDWM [facility] Stop: 09/30/17 08:59 Last Admin: 09/01/17 08:13 Dose: 500 mg Ondansetron HCl (Zofran 4 Mg/2 Ml Vial) 4 mg IV Q6H PRN PRN PRN Reason: NAUSEA/VOMITING Stop: 09/29/17 19:20 Potassium Chloride (Klor Con 10 Meq) 10 meq PO BID [facility] Stop: 09/29/17 21:59 Last Admin: 09/01/17 09:42 Dose: 10 meq Simvastatin (Zocor 10mg) 10 mg PO HS [facility] Stop: 09/29/17 21:59 Last Admin: 08/31/17 23:01 Dose: 10 mg Tamsulosin HCl (Flomax 0.4 Mg) 0.4 mg PO DAILY [facility] Stop: 09/30/17 09:59 Last Admin: 09/01/17 09:41 Dose: 0.4 mg Vitamin E (Vitamin E 400 Unit Softgel) 400 u PO DAILY [facility] Stop: 09/30/17 09:59 Last Admin: 09/01/17 09:44 Dose: 400 u Intake & Output 08/31/17 09/01/17 11:59 11:59 Intake Total 1356 3468 Output Total 1000 2100 Balance 356 1368 Weight 77.1 kg Orders 08/31/17 09:00 Glipizide 5 mg [Glucotrol 5 MG] 2.5 mg PO BIDWM Medication Intervention 1 each PO .RN TO CHECK ON Metformin HCl 500 mg [Glucophage 500 MG] 500 mg PO BIDWM 08/31/17 10:00 Aspirin EC 81 mg [Ecotrin 81 mg] 81 mg PO DAILY Clopidogrel Bisulfate 75 mg [PLAVIX 75 MG Tablet] 75 mg PO DAILY Ferrous Sulfate 325 mg [Feosol 325 mg] 325 mg PO DAILY Isosorbide Mononitrate 30 mg [Imdur 30 MG] 30 mg PO DAILY Tamsulosin HCl 0.4 mg [Flomax 0.4 MG] 0.4 mg PO DAILY Vitamin E 400 Units [Vitamin E 400 UNIT SOFTGEL] 400 u PO DAILY 08/31/17 12:00 Clonidine HCl 0.1 mg [Catapres 0.1 MG] 0.1 mg PO DAILY 08/31/17 17:00 Insulin Aspart [NovoLOG Insulin] See Dose Instructions SQ UD Patient 48 hours hospital course remain unremarkable, CT results and ENT follow up d/w patient. Medication management discussed with patient. - Vitals & Intake/Output Vital Signs: Vital Signs Temperature 97.7 F 09/01/17 07:59 Pulse Rate 89 09/01/17 07:59 Respiratory Rate 20 09/01/17 08:00 Blood Pressure 168/80 09/01/17 07:59 O2 Sat by Pulse Oximetry 96 09/01/17 07:59 Intake & Output: Intake & Output 08/29/17 08/30/17 08/31/17 09/01/17 11:59 11:59 11:59 11:59 Intake Total 1356 3468 Output Total 1000 2100 Balance 356 1368 Weight 77.1 kg - Lab Result Diagrams: 08/31/17 04:26 08/31/17 04:26 Lab Results-Last 24 Hrs: Accuchecks Date 09/01/17 Date 08/31/17 Date 08/31/17 Date 08/31/17 Time 08:28 Time 22:00 Time 16:30 Time 11:30 Accucheck Value: 143 Accucheck Value: 159 Accucheck Value: 210 Accucheck Value: 230 Micro Results-Entire Visit: Accuchecks Date 09/01/17 Date 08/31/17 Date 08/31/17 Date 08/31/17 Time 08:28 Time 22:00 Time 16:30 Time 11:30 Accucheck Value: 143 Accucheck Value: 159 Accucheck Value: 210 Accucheck Value: 230 Discharge Exam General Appearance: no apparent distress, alert Neurologic Exam: alert, oriented x 3, cooperative, normal mood/affect, nml cerebellar function, sensation nml, No motor deficits Skin Exam: normal color, warm, dry Eye Exam: PERRL, EOMI, eyes nml inspection Ears, Nose, Throat Exam: normal ENT inspection, pharynx normal, moist mucous membranes Neck Exam: normal inspection, non-tender, supple, full range of motion Respiratory Exam: normal breath sounds, lungs clear, No respiratory distress Cardiovascular Exam: regular rate/rhythm, normal heart sounds Gastrointestinal/Abdomen Exam: soft, No tenderness, No mass Extremity Exam: normal inspection, normal range of motion Back Exam: normal inspection, normal range of motion, No CVA tenderness, No vertebral tenderness Male Genitalia Exam: deferred Rectal Exam: deferred Final Diagnosis/Problem List - Final Discharge Diagnosis/Problem (1) Dizziness Current Visit: Yes Status: Resolved (2) Diabetes Current Visit: Yes Status: Chronic Assessment & Plan: Patient is advised to take glipizide, metformin and jardience for his better diabetes control. (3) Hypertension Current Visit: Yes Status: Chronic Assessment & Plan: Hypertension medication management and compliance discussed with patient. - Discharge Discharge Date: 09/01/17 Disposition: Home, Self-Care Condition: Stable Prescriptions: New Hydrochlorothiazide 25 mg [hydroDIURIL 25 MG] 25 mg PO BID tablet Lisinopril 20 mg [Zestril 20 MG] 20 mg PO BID tablet Continue Aspirin [Aspir 81] 81 mg PO DAILY Isosorbide Mononitrate 30 mg [Imdur 30 MG] 30 mg PO DAILY Potassium Chloride 10 Meq Tab* [Klor Con 10 MEQ] 10 meq PO BID Pravastatin Sodium 10 mg [Pravachol 10 MG] 10 mg PO HS Glipizide/Metformin HCl [Glipizide-Metformin 5-500 mg] 2.5 each PO BID Ferrous Sulfate 325 mg [Feosol 325 mg] 325 mg PO DAILY Carvedilol 6.25 mg [Coreg 6.25 MG] 6.25 mg PO BID Lisinopril/Hydrochlorothiazide [Lisinopril-Hctz 20-25 mg Tab] 1 each PO BID Ranitidine HCl [Zantac] 150 mg PO BID Clopidogrel Bisulfate 75 mg [PLAVIX 75 MG Tablet] 75 mg PO DAILY Vitamin E 1 tab PO BID Tamsulosin HCl 0.4 mg [Flomax 0.4 MG] 1 tab PO DAILY Empagliflozin [Jardiance] 25 mg PO DAILY Hydralazine HCl 1 tab PO Q4H Clonidine HCl 0.1 mg PO DAILY HydrALAzine HCL 25 MG TAB [Apresoline 25 MG TABLET] 25 mg PO QID Instructions: High Blood Pressure (DC), Vertigo (a Type of Dizziness) (DC) Additional Instructions: YOU HAVE AN APPOINTMENT WITH DR. ROSA ELENA JACKSON AT [facility] ON August AT 1:45 PM. IT IS LOCATED AT [address] [place] [address]. Follow up with: TIMOTHY PONCE MD [Primary Care Provider] - 5 Days
== END 2017-09-01 10:55 | disposition home or self-care (01) ==
LOC: ED 14:39 → MED SURG 19:10
PROVIDERS: ADMIT General Practice; ATTEND General Practice
DX: R42 Dizziness and giddiness (principal); E11.65 Type 2 diabetes mellitus with hyperglycemia; Z79.4 Long term (current) use of insulin; I10 Essential (primary) hypertension; Z79.899 Other long term (current) drug therapy; Z86.73 Personal history of transient ischemic attack (TIA), and cerebral infarction without residual deficits; Q24.9 Congenital malformation of heart, unspecified; M19.90 Unspecified osteoarthritis, unspecified site; K74.60 Unspecified cirrhosis of liver; F17.200 Nicotine dependence, unspecified, uncomplicated
CPT/HCPCS: 82962 ×3; 93041; 99285; 36000; 96360; 93005; 81002; 36415 ×2; 83036; 85025 ×2; 80048; 80053; 84484 ×2; 71046; 70450; G0480; G0378; A9270-GY

== ENCOUNTER 2018-11-27 08:46 | Day surgery (SDC) | payer MEDICARE ==
[2018-11-27] MEDS ORDERED: Depo-Medrol 40 MG/ML IM ONE (08:47)
[2018-11-27] MEDS ORDERED: Sodium Chloride 0.9(Preservative Free) 10 ML IJ ONE (08:47)
[2018-11-27] MEDS ORDERED: Xylocaine 1% Vial 30 ML PF IJ ONE (08:47)
[2018-11-27] MEDS ORDERED: DIPRIVAN 200 MG/20 ML IV ONE (08:47)
[2018-11-27] MEDS ORDERED: Ketamine HCl 50 MG/ML IV ONE (08:47)
--- NOTE | 2018-11-27 10:27 | XRAY ---
10 seconds fluoroscopy time in surgery for L5-S1 GARY.
--- NOTE | 2018-11-27 10:37 | XRAY ---
Indication: L5-S1 GARY. Intraoperative fluoroscopy was provided for 10 seconds. 2 digital spot images submitted for interpretation demonstrates midline posterior needle tip projecting just posterior to the lumbosacral interspace. Small amount of contrast injected for needle tip placement. Correlate with intraoperative findings/report.
[2018-11-27] MEDS ORDERED: Lactated Ringers 1,000 ML IV ONE (13:08)
== END 2018-11-27 10:10 | disposition home or self-care (01) ==
LOC: SDC-PAIN 08:46
PROVIDERS: ATTEND Psychiatry & Neurology Pain Medicine
DX: M54.16 Radiculopathy, lumbar region (principal); E11.9 Type 2 diabetes mellitus without complications; I10 Essential (primary) hypertension; Z79.899 Other long term (current) drug therapy
CPT/HCPCS: 62323; 72100; 77003; 82962; J1030; J2001; J2704; Q9966

== ENCOUNTER 2019-03-13 22:09 | Emergency (ER) | payer MEDICARE ==
[2019-03-13] MEDS ORDERED: PROTONIX 40 MG IV IV ONE ×2 (22:12→22:36)
[2019-03-13] MEDS ORDERED: Sodium Chloride 0.9% 1000 ML 1,000 ML IV STA (22:12)
--- NOTE | 2019-03-13 22:25 | ERPHSYRPT ---
- History of Present Illness Time Seen by Provider: 03/13/19 22:10 Historian: patient Exam Limitations: no limitations Physician History: Lower Abdominal Pain for the past week. No evaluation prior to augustine's visit. Patient was seen by Cardiology at [facility] in [place], [place] one month ago with a negative work-up for any abnormalities per his history. Timing/Duration: week(s) (1) Activities at Onset: none Quality: aching Abdominal Pain Onset Location: RLQ, LLQ Pain Radiation: RLQ, LLQ Severity of Pain-Max: moderate Severity of Pain-Current: mild Modifying Factors: Improves With: nothing Associated Symptoms: other (melena for one month), No back, No chest pain, No diaphoresis, No diarrhea, No fever/chills, No fatigue, No headache, No heartburn , No loss of appetite, No nausea, No neck pain, No rash, No shortness of breath , No syncope, No testicular pain, No vomiting, No weakness Previous symptoms: no prior history, no recent treatment Allergies/Adverse Reactions: No Known Drug Allergies Allergy (Verified 03/13/19 22:26) Home Medications: Aspirin [Aspir 81] 81 mg PO DAILY 07/23/12 [History] Ferrous Sulfate 325 mg [Feosol 325 mg] 325 mg PO DAILY 09/21/12 [History] Glipizide/Metformin HCl [Glipizide-Metformin 5-500 mg] 2.5 each PO BID 09/21/12 [History] Isosorbide Mononitrate 30 mg [Imdur 30 MG] 30 mg PO DAILY 09/21/12 [History ] Potassium Chloride 10 Meq Tab* [Klor Con 10 MEQ] 10 meq PO BID 09/21/12 [ History] Pravastatin Sodium 10 mg [Pravachol 10 MG] 10 mg PO HS 09/21/12 [History] Carvedilol 6.25 mg [Coreg 6.25 MG] 6.25 mg PO BID 02/04/15 [History] Clopidogrel Bisulfate 75 mg [PLAVIX 75 MG Tablet] 75 mg PO DAILY 02/04/15 [History] Lisinopril/Hydrochlorothiazide [Lisinopril-Hctz 20-25 mg Tab] 1 each PO BID 12/14 [History] raNITIdine HCl [Zantac] 150 mg PO BID 02/04/15 [History] Tamsulosin HCl 0.4 mg [Flomax 0.4 MG] 1 tab PO DAILY 08/08/17 [History] Vitamin E 1 tab PO BID 08/08/17 [History] Empagliflozin [Jardiance] 25 mg PO DAILY 08/30/17 [History] HydrALAzine HCL 25 MG TAB [Apresoline 25 MG TABLET] 25 mg PO QID 08/30/17 [History] Hydralazine HCl 1 tab PO Q4H 08/30/17 [History] cloNIDine HCl [Clonidine HCl] 0.1 mg PO DAILY 08/30/17 [History] Hx Tetanus, Diphtheria Vaccination/Date Given: No Hx Influenza Vaccination/Date Given: Yes Hx Pneumococcal Vaccination/Date Given: Yes - Review of Systems Constitutional: No Fever, No Chills Eyes: No Eye Pain, No Vision Changes Ears, Nose, & Throat: No Nose Congestion, No Throat Pain, No Hoarse, No Painful Swallowing Respiratory: No Cough, No Dyspnea Cardiac: No Chest Pain, No Edema, No Syncope Abdominal/Gastrointestinal: Melena, No Abdominal Pain, No Nausea, No Vomiting, No Diarrhea, No Hematemesis, No Hematochezia Genitourinary Symptoms: No Dysuria, No Frequency, No Urinary Retention, No Flank Pain Musculoskeletal: No Back Pain, No Neck Pain Skin: No Rash Neurological: Dizziness (it has been occuring over one month intermittently), No Focal Weakness, No Headache, No Seizure, No Sensory Changes, No Tremors, No Vertigo Psychological: No Symptoms, No Alcohol Abuse, No Anxiety Endocrine: No Symptoms Hematologic/Lymphatic: No Easy Bleeding, No Easy Bruising All Other Systems: Reviewed and Negative - Past Medical History Pertinent Past Medical History: Yes Neurological History: TIA ENT History: No Pertinent History Cardiac History: Congenital Heart Disease, Hypertension Respiratory History: No Pertinent History Endocrine Medical History: Diabetes Type II Musculoskeletal History: Osteoarthritis GI Medical History: Cirrhosis History: No Pertinent History Psycho-Social History: No Pertinent History Male Reproductive Disorders: No Pertinent History - Past Surgical History Past Surgical History: Yes Cardiac: Cardiac Stent Gastrointestinal: Hernia Repair Musculoskeletal: Orthopedic Surgery Other Surgical History: Nasal surgery - Social History Smoking Status: Former smoker Exposure to second hand smoke: No Drug Use: none Patient Lives Alone: No Significant Family History: no pertinent family hx - Nursing Vital Signs Nursing Vital Signs: Initial Vital Signs Temperature 99.2 F 03/13/19 22:14 Pulse Rate 80 03/13/19 22:14 Respiratory Rate 18 03/13/19 22:14 Blood Pressure 174/84 03/13/19 22:14 O2 Sat by Pulse Oximetry 96 03/13/19 22:14 Pain Scale Pain Intensity 4 - Physical Exam General Appearance: no apparent distress, alert Eye Exam: PERRL/EOMI, eyes nml inspection Ears, Nose, Throat Exam: normal ENT inspection, pharynx normal, moist mucous membranes Neck Exam: normal inspection, non-tender, supple, full range of motion Respiratory Exam: normal breath sounds, lungs clear, wheezing (mild end- expiratory, clears with a few deep breaths), No respiratory distress Cardiovascular Exam: regular rate/rhythm, normal heart sounds Gastrointestinal/Abdomen Exam: soft, normal bowel sounds, No tenderness, No distention, No mass, No rebound, No hernia Male Genitalia Exam: No hernia, No testicular tenderness Rectal Exam: normal rectal tone, black stool, other (skin tags; chaperoned Atiya Hays RN), No blood, No tenderness Back Exam: normal inspection, normal range of motion, No CVA tenderness, No vertebral tenderness Extremity Exam: normal inspection, normal range of motion, pelvis stable Neurologic Exam: alert, oriented x 3, cooperative, 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 II-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 nml as tested, normal mood/affect, nml cerebellar function, sensation nml, No motor deficits Skin Exam: normal color, warm, dry, No jaundice, No cyanosis SpO2 Interpretation: normal O2 Delivery: Room Air - Course Nursing assessment & vital signs reviewed: Yes EKG Interpreted by Me: RATE (80), Sinus Rhythm, LAFB, NORMAL INTERVALS, Other ( intraventricular conduction delay with 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 Normal ventricles. No ventriculomegaly. Unremarkable bones with no signs of acute fracture. There is mucosal thickening of the paranasal sinuses. Stable mucous retention cyst or polyp in the right ethmoid sinus. No fluid levels. Visualized mastoid air cells are well aerated. Soft tissues are unremarkable. Overall impression no acute intracranial pathology with signs of age related diffuse triple volume loss and chronic microvascular ischemic disease.) Abdomen/Pelvis CT Interpretation: Tele-radiologist Report, Other (pper radiologist interpretation: Bibasilar L. or T. change or scarring in the lungs. There is a very small hiatal hernia. There is hepatomegaly. Normal gallbladder bile duct with no calcified stones or ductal dilation. Pancreas normal. Spleen normal. Adrenal is normal. Stable viral lateral renal cyst. Stable punctate nondestructive left nephrolithiasis. Stable colonic diverticulosis without evidence for acute diverticulitis. The appendix is unremarkable and seen best on axial image that he wanted series 3. Unremarkable free air in the intraperitoneal space. No significant fluid collection in the intraperitoneal space. Stable atherosclerotic aortic and iliac and femoral artery calcifications. Unremarkable nonenlarged lymph nodes. Stable prostate gland calcifications. No acute fractures of the bones or joints. Small fascial right inguinal hernia without signs of incarceration. Overall impression: 1 stable punctate nonobstructive left nephrolithiasis. 2) stable colonic diverticulosis without evidence for acute diverticulitis. 3) there is a very small hiatal hernia. 4) right inguinal hernia without signs of incarceration) Ordered Tests: Active Orders 24 hr Category Date Time Status Auto Porter STAT Care 03/13/19 22:16 Active EKG-ER Only STAT Care 03/13/19 22:15 Active IV Insertion STAT Care 03/13/19 22:12 Active NPO (ED) STAT Care 03/13/19 22:12 Active CHEST 1 VIEW (PORTABLE) Stat Exams 03/13/19 23:12 Taken HEAD WITHOUT CONTRAST [CT] Stat Exams 03/13/19 22:16 Taken AMYLASE Stat Lab 03/13/19 22:40 Completed CBC W DIFF Stat Lab 03/13/19 22:40 Completed CMP Stat Lab 03/13/19 22:40 Completed LIPASE Stat Lab 03/13/19 22:40 Completed Lactic Acid Stat Lab 03/13/19 22:35 Completed MAGNESIUM Stat Lab 03/13/19 22:40 Completed Occult Blood, Other Screening Stat Lab 03/13/19 22:40 Completed TROPONIN Q3H Lab 03/13/19 22:40 Completed TROPONIN Q3H Lab 03/14/19 01:30 Ordered TROPONIN Q3H Lab 03/14/19 04:30 Ordered TROPONIN Q3H Lab 03/14/19 07:30 Ordered TROPONIN Q3H Lab 03/14/19 10:30 Ordered Medication Summary Discontinued Medications Generic Name Dose Route Start Last Admin Trade Name Daniella PRN Reason Stop Dose Admin Sodium Chloride 1,000 mls @ 999 mls/hr 03/13/19 22:12 03/13/19 23:40 Sodium Chloride 0.9% 1000 Ml IV 03/13/19 23:12 Infused .Q1H1M STA Infusion Sodium Chloride Confirm 03/13/19 22:36 Sodium Chloride 0.9% 1000 Ml Administered 03/13/19 22:37 Dose 1,000 mls @ ud .ROUTE .STK-MED ONE Sodium Chloride 500 mls @ 500 mls/hr 03/13/19 23:43 03/14/19 00:37 Sodium Chloride 0.9% 500 Ml IV 03/14/19 00:42 500 mls/hr .Q1H ONE Administration Sodium Chloride Confirm 03/14/19 00:36 Sodium Chloride 0.9% 500 Ml Administered 03/14/19 00:37 Dose 500 mls @ ud IV .STK-MED ONE Pantoprazole Sodium 40 mg 03/13/19 22:12 03/13/19 22:40 Protonix 40 Mg Iv IV 03/13/19 22:13 40 mg STAT ONE Administration Pantoprazole Sodium Confirm 03/13/19 22:36 Protonix 40 Mg Iv Administered 03/13/19 22:37 Dose 40 mg IV .STK-MED ONE Lab/Rad Data: Laboratory Result Diagrams 03/13/19 22:40 03/13/19 22:40 Laboratory Results 03/13/19 03/13/19 03/13/19 Range/Units 22:40 22:40 22:40 WBC (4.0-10.5) K/mm3 RBC (4.1-5.6) M/mm3 Hgb (12.5-18.0) gm/dl Hct (42-50) % MCV (78-100) fl MCH (26-32) pg MCHC (32-36) g/dl RDW (11.5-14.0) % Plt Count (150-450) K/mm3 MPV (6-9.5) fl Gran % (36.0-66.0) % Eos # (Auto) (0-0.5) Absolute Lymphs (auto) (1.0-4.6) Absolute Monos (auto) (0.0-1.3) Lymphocytes % (24.0-44.0) % Monocytes % (0.0-12.0) % Eosinophils % (0.00-5.0) % Basophils % (0.0-0.4) % Absolute Granulocytes (1.4-6.9) Basophils # (0-0.4) Sodium (137-145) mmol/L Potassium (3.5-5.1) mmol/L Chloride (98-107) mmol/L Carbon Dioxide (22-30) mmol/L Anion Gap (5-15) MEQ/L BUN (9-20) mg/dL Creatinine (0.66-1.25) mg/dL Estimated GFR ML/MIN Glucose (74-106) mg/dL Lactic Acid (0.4-2.0) Calcium (8.4-10.2) mg/dL Magnesium 1.7 (1.6-2.3) mg/dL Total Bilirubin (0.2-1.3) mg/dL AST (17-59) U/L ALT (0-50) U/L Alkaline Phosphatase (38-126) U/L Troponin I < 0.012 (0.000-0.034) ng/mL Serum Total Protein (6.3-8.2) g/dL Albumin (3.5-5.0) g/dL Amylase (30-110) U/L Lipase (23-300) U/L Urine Color (YELLOW) Urine Appearance (CLEAR) Urine pH (5-6) Ur Specific [place] (1.005-1.025) Urine Protein (Negative) Urine Ketones (NEGATIVE) Urine Blood (0-5) [place]/ul Urine Nitrite (NEGATIVE) Urine Bilirubin (NEGATIVE) Urine Urobilinogen (0-1) mg/dL Ur Leukocyte Esterase (NEGATIVE) Urine WBC (Auto) (0-5) /HPF Urine RBC (Auto) (0-2) /HPF U Epithel Cells (Auto) (FEW) /HPF Urine Bacteria (Auto) (NEGATIVE) /HPF Urine Mucus (Auto) (NEGATIVE) /HPF Urine Culture Reflexed (NO) Urine Glucose (NEGATIVE) mg/dL Stool Occult Blood NEGATIVE (Negative) 03/13/19 03/13/19 03/13/19 Range/Units 22:40 22:40 22:35 WBC 9.8 (4.0-10.5) K/mm3 RBC 3.83 L (4.1-5.6) M/mm3 Hgb 12.5 (12.5-18.0) gm/dl Hct 38.0 L (42-50) % MCV 99.2 (78-100) fl MCH 32.6 H (26-32) pg MCHC 32.9 (32-36) g/dl RDW 12.4 (11.5-14.0) % Plt Count 243 (150-450) K/mm3 MPV 10.4 H (6-9.5) fl Gran % 74.1 H (36.0-66.0) % Eos # (Auto) 0.09 (0-0.5) Absolute Lymphs (auto) 1.25 (1.0-4.6) Absolute Monos (auto) 1.18 (0.0-1.3) Lymphocytes % 12.8 L (24.0-44.0) % Monocytes % 12.1 H (0.0-12.0) % Eosinophils % 0.9 (0.00-5.0) % Basophils % 0.1 (0.0-0.4) % Absolute Granulocytes 7.26 H (1.4-6.9) Basophils # 0.01 (0-0.4) Sodium 138 (137-145) mmol/L Potassium 4.1 (3.5-5.1) mmol/L Chloride 102 (98-107) mmol/L Carbon Dioxide 28 (22-30) mmol/L Anion Gap 12.1 (5-15) MEQ/L BUN 23 H (9-20) mg/dL Creatinine 1.36 H (0.66-1.25) mg/dL Estimated GFR 52.9 ML/MIN Glucose 190 H (74-106) mg/dL Lactic Acid 1.1 (0.4-2.0) Calcium 10.5 H (8.4-10.2) mg/dL Magnesium (1.6-2.3) mg/dL Total Bilirubin 0.80 (0.2-1.3) mg/dL AST 16 L (17-59) U/L ALT 14 (0-50) U/L Alkaline Phosphatase 64 (38-126) U/L Troponin I (0.000-0.034) ng/mL Serum Total Protein 7.3 (6.3-8.2) g/dL Albumin 3.9 (3.5-5.0) g/dL Amylase 54 (30-110) U/L Lipase 63 (23-300) U/L Urine Color (YELLOW) Urine Appearance (CLEAR) Urine pH (5-6) Ur Specific [place] (1.005-1.025) Urine Protein (Negative) Urine Ketones (NEGATIVE) Urine Blood (0-5) [place]/ul Urine Nitrite (NEGATIVE) Urine Bilirubin (NEGATIVE) Urine Urobilinogen (0-1) mg/dL Ur Leukocyte Esterase (NEGATIVE) Urine WBC (Auto) (0-5) /HPF Urine RBC (Auto) (0-2) /HPF U Epithel Cells (Auto) (FEW) /HPF Urine Bacteria (Auto) (NEGATIVE) /HPF Urine Mucus (Auto) (NEGATIVE) /HPF Urine Culture Reflexed (NO) Urine Glucose (NEGATIVE) mg/dL Stool Occult Blood (Negative) 03/13/19 Range/Units 00:05 WBC (4.0-10.5) K/mm3 RBC (4.1-5.6) M/mm3 Hgb (12.5-18.0) gm/dl Hct (42-50) % MCV (78-100) fl MCH (26-32) pg MCHC (32-36) g/dl RDW (11.5-14.0) % Plt Count (150-450) K/mm3 MPV (6-9.5) fl Gran % (36.0-66.0) % Eos # (Auto) (0-0.5) Absolute Lymphs (auto) (1.0-4.6) Absolute Monos (auto) (0.0-1.3) Lymphocytes % (24.0-44.0) % Monocytes % (0.0-12.0) % Eosinophils % (0.00-5.0) % Basophils % (0.0-0.4) % Absolute Granulocytes (1.4-6.9) Basophils # (0-0.4) Sodium (137-145) mmol/L Potassium (3.5-5.1) mmol/L Chloride (98-107) mmol/L Carbon Dioxide (22-30) mmol/L Anion Gap (5-15) MEQ/L BUN (9-20) mg/dL Creatinine (0.66-1.25) mg/dL Estimated GFR ML/MIN Glucose (74-106) mg/dL Lactic Acid (0.4-2.0) Calcium (8.4-10.2) mg/dL Magnesium (1.6-2.3) mg/dL Total Bilirubin (0.2-1.3) mg/dL AST (17-59) U/L ALT (0-50) U/L Alkaline Phosphatase (38-126) U/L Troponin I (0.000-0.034) ng/mL Serum Total Protein (6.3-8.2) g/dL Albumin (3.5-5.0) g/dL Amylase (30-110) U/L Lipase (23-300) U/L Urine Color YELLOW (YELLOW) Urine Appearance CLEAR (CLEAR) Urine pH 7.0 (5-6) Ur Specific [place] 1.014 (1.005-1.025) Urine Protein NEGATIVE (Negative) Urine Ketones NEGATIVE (NEGATIVE) Urine Blood NEGATIVE (0-5) [place]/ul Urine Nitrite NEGATIVE (NEGATIVE) Urine Bilirubin NEGATIVE (NEGATIVE) Urine Urobilinogen NEGATIVE (0-1) mg/dL Ur Leukocyte Esterase NEGATIVE (NEGATIVE) Urine WBC (Auto) NONE (0-5) /HPF Urine RBC (Auto) NONE (0-2) /HPF U Epithel Cells (Auto) NONE (FEW) /HPF Urine Bacteria (Auto) NONE (NEGATIVE) /HPF Urine Mucus (Auto) SLIGHT (NEGATIVE) /HPF Urine Culture Reflexed NO (NO) Urine Glucose 150 (NEGATIVE) mg/dL Stool Occult Blood (Negative) - Progress Progress: improved Progress Note: 03/14/19 01:26 Patient has no further abdominal pain, dizziness or any symptoms of chest pain, back pain, dyspnea or focal weakness. patient has no abnormal findings on his examination, lab work, CT scan imaging or chest x-ray that requires him to be admitted into the hospital, have immediate surgical evaluation by instructor adjunct surgical technician or require further monitoring or testing in the emergency department. Patient was discharged home to follow up with his physician in the morning of 03/14/2019. Counseled pt/family regarding: lab results, diagnosis, need for follow-up, rad results - Departure Departure Disposition: Home Clinical Impression: Bilateral lower abdominal pain, Dizziness, Melena, Disorder of ethmoidal sinus , Right inguinal hernia, Colon, diverticulosis, Hiatal hernia without gangrene and obstruction Hypertension Qualifiers: Hypertension type: unspecified Qualified Code(s): I10 - Essential (primary) hypertension Condition: Good Critical Care Time: No Referrals: TIMOTHY PONCE MD [Primary Care Provider] - 03/14/19 Instructions: High Blood Pressure (DC), Acute Abdomen (Belly Pain), Adult (DC) , Bloody Stools, Adult (DC), Dizziness, Nonvertigo, (DC) Additional Instructions: Return immediately back to the Emergency Department if any worse at any time including any worsening bowel pain, worsening dizziness, new focal weakness, new chest pain, new loss of sensation, new shortness of breath or any other concerning signs or symptoms that was not present at this visit for immediate reevaluation in the emergency department.
[2019-03-13] MEDS ORDERED: Sodium Chloride 0.9% 1000 ML 1,000 ML ONE (22:36)
[2019-03-13 22:50] LABS: BASOPHIL % 0.1 % (0.0-0.4); Basophil (Absolute #) 0.01 (0-0.4); Eosinophil % 0.9 % (0.00-5.0); Eosinophil (Absolute #) 0.09 (0-0.5); Granulocyte Absolute (ANC) 7.26 (1.4-6.9); Granulocytes % 74.1 % (36.0-66.0); Hemoglobin 12.5 gm/dl (12.5-18.0); Lymphocyte (Absolute #) 1.25 (1.0-4.6); Lymphocytes % 12.8 % (24.0-44.0); Mean Cell Volume 99.2 fl (78-100); Mean Corpuscular Hemoglobin 32.6 pg (26-32); Mean Corpuscular Hgb Concent. 32.9 g/dl (32-36); Mean Platelet Volume 10.4 fl (6-9.5); Monocyte (Absolute #) 1.18 (0.0-1.3); Monocytes % 12.1 % (0.0-12.0); Platelet Count 243 K/mm3 (150-450); Red Blood Count 3.83 M/mm3 (4.1-5.6); Red Cell Distribution Width 12.4 % (11.5-14.0); White Blood Count 9.8 K/mm3 (4.0-10.5)
[2019-03-13 23:02] LABS: ALBUMIN 3.9 g/dL (3.5-5.0); ANION GAP 12.1 MEQ/L (5-15); BILIRUBIN,TOTAL 0.8 mg/dL (0.2-1.3); Calcium 10.5 mg/dL (8.4-10.2); Creatinine 1 1.36 mg/dL (0.66-1.25); Potassium 4.1 mmol/L (3.5-5.1); Total Protein 7.3 g/dL (6.3-8.2)
[2019-03-13] MEDS ORDERED: Sodium Chloride 0.9% 500 ML 500 ML IV ONE (23:43)
[2019-03-14 00:21] LABS: Appearance CLEAR (CLEAR); Bilirubin NEGATIVE (NEGATIVE); Blood NEGATIVE Ery/ul (0-5); Glucose 150 mg/dL (NEGATIVE); Ketones NEGATIVE (NEGATIVE); Leukocyte Esterase NEGATIVE (NEGATIVE); Mucus SLIGHT /HPF (NEGATIVE); Nitrite NEGATIVE (NEGATIVE); Protein,Urine Dip NEGATIVE (Negative); Specific Gravity 1.014 (1.005-1.025); Urobilinogen NEGATIVE mg/dL (0-1)
[2019-03-14] MEDS ORDERED: Sodium Chloride 0.9% 500 ML 500 ML IV ONE (00:36)
[2019-03-14] MEDS ORDERED: NORCO 5/325 MG PO ONE (01:24)
[2019-03-14] MEDS ORDERED: NORCO 5/325 MG ONE (01:40)
[2019-03-14 01:45] VITALS: BP 170/90; PULSE 82; O2SAT 96
--- NOTE | 2019-03-14 08:39 | XRAY ---
Indication: Dizziness. Comparison: August 30, 2017. Portable apical lordotic chest less inflated crowding the lung bases with subtle right base infiltrate versus atelectasis. Remaining heart and lungs unremarkable. Bony thorax intact again with osteopenia and degenerative changes.
--- NOTE | 2019-03-14 08:43 | XRAY ---
Indication: Dizziness. Multiple contiguous axial images obtained through the head without contrast. Comparison: August 30, 2017. Stable age-appropriate global atrophy and mild periventricular degenerative micro-ischemia bilaterally. No acute intracranial hemorrhage, abnormal extra-axial fluid collection, or mass effect. Fourth ventricle is midline without hydrocephalus. Bony calvarium intact. Again mild/moderate fecal periosteal thickening of the paranasal sinuses without fluid leveling. Stable right ethmoid sinus soft tissue mass. Mastoid air cells are clear. Impression: Stable nonacute senile brain again with paranasal sinus disease and right ethmoid sinus soft tissue mass. Comment: Preliminary interpretation was made by [facility]. No critical discrepancy. CTDI 71.08
--- NOTE | 2019-03-14 08:48 | XRAY ---
Indication: Lower pelvic pain. Change in bowel movements. Multiple contiguous axial images obtained through the abdomen and pelvis using 80 cc Isovue 370 contrast only. Comparison: February 05, 2015. Lung bases demonstrates dependent atelectasis, right greater than left. Stable left base tiny calcified granuloma and bleb. Heart is not enlarged. Stable small hiatal hernia. Noncontrasted stomach and bowel loops appear nonobstructed. Normal appendix. Again diffuse scattered colonic diverticulosis without diverticulitis. No free fluid/air. Stable nonobstructing left renal micro-calculus and bilateral renal cysts. Remaining liver, gallbladder, pancreas, spleen, adrenal glands, kidneys, ureters, and bladder appear unremarkable. Stable moderate scattered aortoiliac calcifications. No AAA or pathologic retroperitoneal lymphadenopathy. Osseous structures intact again with mild degenerative changes throughout the thoracolumbar spine and small right femur neck bone cyst. Stable small fatty right inguinal hernia. Impression: 1. Stable small hiatal hernia, colonic diverticulosis, nonobstructing left renal micro-calculus, bilateral renal cysts, degenerative spondylosis, right femur neck bone cyst, and small fatty right inguinal hernia. 2. Remaining CT abdomen/pelvis with contrast exam is negative. Comment: Preliminary interpretation was made by [facility]. No critical discrepancy. CTDI 21.99
== END 2019-03-14 02:05 | disposition home or self-care (01) ==
LOC: ED 22:09
DX: R10.9 Unspecified abdominal pain (principal); R42 Dizziness and giddiness; K92.1 Melena; J34.9 Unspecified disorder of nose and nasal sinuses; K40.90 Unilateral inguinal hernia, without obstruction or gangrene, not specified as recurrent; K57.90 Diverticulosis of intestine, part unspecified, without perforation or abscess without bleeding; K44.9 Diaphragmatic hernia without obstruction or gangrene
CPT/HCPCS: 36000; 36415; 70450; 71045; 74177; 80053; 81001; 82150; 82272; 83605; 83690; 83735; 84484; 85025; 93005; 93041; 96360; 96361; 96374; 99285; A9270-GY

== ENCOUNTER 2019-07-26 06:56 | Emergency (ER) | payer MEDICARE ==
--- NOTE | 2019-07-26 07:32 | ERPHSYRPT ---
- History of Present Illness Time Seen by Provider: 07/26/19 07:30 Source: patient, EMS Exam Limitations: no limitations Patient Subjective Stated Complaint: Pt fell at approx 0300 after he had gotten up to go use the restroom, he fell backwards into a trash can and sat there for a couple of hours, he then managed to get out and crawl to a phone that was on the floor, his right knee is red, left lateral thigh has pain, and pain between his shoulder blades Triage Nursing Assessment: Pt brought to the ER via EMS, hypertensive, A&O x3, denies hitting head, states that he sat in the trash can for quite a while before being able to get out, pulses normal, lungs clear, denies any other injury, no other visible injuries, rates overall pain 01/08 Physician History: Pt fell at approx 0300 after he had gotten up to go use the restroom, he fell backwards into a trash can and sat there for a couple of hours, he then managed to get out and crawl to a phone that was on the floor, his right knee is red, left lateral thigh has pain, and pain between his shoulder blades, denies any other symptoms Occurred: this morning Reason for Fall: lost balance, tripped Injuries/Pain Location: lower extremity Loss of Consciousness: no loss of consciousness Severity of Pain-Max: moderate Severity of Pain-Current: moderate Modifying Factors: Improves With: nothing Associated Symptoms (Fall): back pain, trouble walking Allergies/Adverse Reactions: No Known Drug Allergies Allergy (Verified 07/26/19 07:15) Home Medications: Aspirin [Aspir 81] 81 mg PO DAILY 07/23/12 [History] Ferrous Sulfate 325 mg [Feosol 325 mg] 325 mg PO DAILY 09/21/12 [History] Glipizide/Metformin HCl [Glipizide-Metformin 5-500 mg] 2.5 each PO BID 09/21/12 [History] Isosorbide Mononitrate 30 mg [Imdur 30 MG] 30 mg PO DAILY 09/21/12 [History ] Potassium Chloride 10 Meq Tab* [Klor Con 10 MEQ] 10 meq PO BID 09/21/12 [ History] Pravastatin Sodium 10 mg [Pravachol 10 MG] 10 mg PO HS 09/21/12 [History] Carvedilol 6.25 mg [Coreg 6.25 MG] 6.25 mg PO BID 02/04/15 [History] Clopidogrel Bisulfate 75 mg [PLAVIX 75 MG Tablet] 75 mg PO DAILY 02/04/15 [History] Lisinopril/Hydrochlorothiazide [Lisinopril-Hctz 20-25 mg Tab] 1 each PO BID 12/14 [History] raNITIdine HCl [Zantac] 150 mg PO BID 02/04/15 [History] Tamsulosin HCl 0.4 mg [Flomax 0.4 MG] 1 tab PO DAILY 08/08/17 [History] Vitamin E 1 tab PO BID 08/08/17 [History] Empagliflozin [Jardiance] 25 mg PO DAILY 08/30/17 [History] HydrALAzine HCL 25 MG TAB [Apresoline 25 MG TABLET] 25 mg PO QID 08/30/17 [History] Hydralazine HCl 1 tab PO Q4H 08/30/17 [History] cloNIDine HCL [Clonidine HCl] 0.1 mg PO DAILY 08/30/17 [History] Hx Tetanus, Diphtheria Vaccination/Date Given: No Hx Influenza Vaccination/Date Given: Yes Hx Pneumococcal Vaccination/Date Given: Yes - Review of Systems Constitutional: No Fever, No Chills Eyes: No Symptoms Ears, Nose, & Throat: No Symptoms Respiratory: No Cough, No Dyspnea Cardiac: No Chest Pain, No Edema, No Syncope Abdominal/Gastrointestinal: No Abdominal Pain, No Nausea, No Vomiting, No Diarrhea Genitourinary Symptoms: No Dysuria Musculoskeletal: Fall, No Back Pain, No Neck Pain Skin: No Rash Neurological: No Dizziness, No Focal Weakness, No Sensory Changes Psychological: No Symptoms Endocrine: No Symptoms All Other Systems: Reviewed and Negative - Past Medical History Pertinent Past Medical History: Yes Neurological History: TIA ENT History: No Pertinent History Cardiac History: Hypertension Respiratory History: No Pertinent History Endocrine Medical History: Diabetes Type II Musculoskeletal History: Arthritis GI Medical History: GI Bleed History: No Pertinent History Psycho-Social History: No Pertinent History Male Reproductive Disorders: No Pertinent History - Past Surgical History Past Surgical History: Yes Cardiac: Cardiac Stent Gastrointestinal: Hernia Repair Musculoskeletal: Orthopedic Surgery Other Surgical History: Nasal surgery - Social History Smoking Status: Former smoker Exposure to second hand smoke: No Drug Use: none Patient Lives Alone: Yes Significant Family History: no pertinent family hx - Nursing Vital Signs Nursing Vital Signs: Initial Vital Signs Temperature 98.0 F 07/26/19 06:59 Pulse Rate 82 07/26/19 06:59 Respiratory Rate 18 07/26/19 06:59 Blood Pressure 168/80 07/26/19 06:59 O2 Sat by Pulse Oximetry 98 07/26/19 06:59 Pain Scale Pain Intensity 4 - [place] Coma Score Best Eye Response ([place]): (4) open spontaneously Best Verbal Response ([place]): (5) oriented Best Motor Response (José): (6) obeys commands José Total: 15 - Physical Exam General Appearance: no apparent distress, alert Head Injury: no evidence of injury Eye Exam: PERRL/EOMI ENT Exam: airway nml Neck Exam: normal inspection, No tenderness Respiratory/Chest Exam: normal breath sounds, No chest tenderness, No respiratory distress Cardiovascular Exam: normal heart sounds, regular rate/rhythm Gastrointestinal Exam: soft, No tenderness, No distention, No guarding, No ecchymosis Back Exam: normal inspection, No vertebral tenderness Extremity Exam: normal inspection, normal range of motion, pelvis stable, No deformities Neurologic Exam: alert, oriented x 3, cooperative, sensation nml, No motor deficits Skin Exam: normal color, warm, dry SpO2: 98 - Course Nursing assessment & vital signs reviewed: Yes - Radiology Exams Hip X-ray Interpretation: Reviewed by me, Negative, No Fracture, No Subluxation Knee X-ray Interpretation: Reviewed by me, Negative, No Fracture, No Subluxation Ordered Tests: Active Orders 24 hr Category Date Time Status HIPS CHER(2V) INCL PEL IF DONE Stat Exams 07/26/19 07:23 Completed KNEE (1 OR 2 VIEW) Stat Exams 07/26/19 07:20 Completed KNEE (1 OR 2 VIEW) Stat Exams 07/26/19 07:23 Completed Medication Summary Discontinued Medications Generic Name Dose Route Start Last Admin Trade Name Freq PRN Reason Stop Dose Admin Ketorolac Tromethamine 60 mg 07/26/19 07:56 07/26/19 08:03 Toradol 30 Mg Injection IM 07/26/19 07:57 60 mg STAT ONE Administration Ketorolac Tromethamine Confirm 07/26/19 08:00 Toradol 30 Mg Injection Administered 07/26/19 08:01 Dose 60 mg .ROUTE .STK-MED ONE Orphenadrine Citrate 60 mg 07/26/19 07:55 07/26/19 08:03 Norflex 60 Mg/2 Ml IM 07/26/19 07:56 60 mg STAT ONE Administration Orphenadrine Citrate Confirm 07/26/19 08:00 Norflex 60 Mg/2 Ml Administered 07/26/19 08:01 Dose 60 mg .ROUTE .STK-MED ONE - Progress Progress: improved, pain not gone completely Counseled pt/family regarding: diagnosis, need for follow-up, rad results - Departure Departure Disposition: Home Clinical Impression: Hip pain, bilateral, Primary localized osteoarthritis of hips, bilateral, Primary osteoarthritis of knees, bilateral Fall involving bed as cause of accidental injury in home as place of occurrence Qualifiers: Encounter type: initial encounter Qualified Code(s): W06.XXXA - Fall from bed, initial encounter Condition: Stable Critical Care Time: No Referrals: TIMOTHY PONCE MD [Primary Care Provider] - Instructions: Contusion (DC), Preventing Falls Additional Instructions: Discharge/Care Plan KENYON OJEDA was seen on 07/26/19 in the Emergency Room. The patient was counseled regarding Diagnosis,Lab results, Imaging studies, need for follow up and when to return to the Emergency Room. Prescriptions given: Discharge Note I have spoken with the patient and/or caregivers. I have explained the patient' s condition, diagnosis and treatment plan based on the information available to me at this time. I have answered the patient's and/or caregiver's questions and addressed any concerns. The patient and/or caregivers have as good understanding of the patient's diagnosis, condition and treatment plan as can be expected at this point. The vital signs have been stable. The patient's condition is stable and appropriate for discharge from the emergency department. The patient will pursue further outpatient evaluation with the primary care physician or other designated or consulting physician as outlined in the discharge instructions. The patient and/or caregivers are agreeable to this plan of care and follow-up instructions have been explained in detail. The patient and/or caregivers have received these instruction. The patient/and or caregivers are aware that any significant change in condition or worsening of symptoms should prompt an immediate return to this or the closest emergency department or call 911. KENYON OJEDA was seen on 07/26/19 n the Emergency Room. At that time you were treated for an emergent condition, during your visit Laboratory, Radiology and/or other procedures may have been ordered. It is very important that you follow-up with your Primary Care Physician TIMOTHY PONCE within the next 24- 48 hours to review your Emergency Room visit and the final results of testing that was ordered. Some test results such as Urine Cultures, Blood Cultures, and other cultures if ordered will not be finalized for 24-48 hours. If you do not have a Primary Care Provider please call the medical records department at [phone] to obtain a copy of your results or you may sign into our patient portal to obtain these results by visiting us @ [email or web address] and completing the following steps: 1. Click on the Patient Portal link 2. Click the Patient Self Enrollment Link to complete the enrollment form and entering your 3. Once the enrollment form is completed you will receive an email with a temporary ID and password at the email address you provided. 4. Next choose a user name and password. Your user name must be at least 4 characters long and your password must be at least 4 characters long. 5. Choose a security question from the list and provide your answer to the question. If you already have signed into the Health Portal you may access your Health Care Information 22/01 by the following steps: 1. Login to our website @ [email or web address] 2. Enter your original user name and password. FAQS The [facility] Portal is an online tool that contains your Lab Results, Radiology Reports, Visit History, Discharge Instructions and Health Summary Lab and Radiology Results will not be available for 72 hours on the portal. The Portal is a secure site, passwords are encryted and URLs are re-written so they cannot be copied and pasted. You and authorized family members are the only ones who can access your Portal. Also there is a timeout feature that protects your information if you leave the Portal page open. If you have technical difficulty please use the Contact Us link on the page this will allow you to submit any questions you have regarding the Portal or you may contact the Medical Record Department at [phone] ext [phone]. Prescriptions: Walker [Ultra-Light Rollator] 1 each UD #1 each Hydrocodon/Ibupr 7.5mg/200mg [Vicoprofen 7.5mg/200mg Tablet] 1 tab PO Q6H # 20 tablet MDD max 4 a day
[2019-07-26] MEDS ORDERED: Norflex 60 MG/2 ML IM ONE (07:55)
[2019-07-26] MEDS ORDERED: TORAdol 30 mg Injection IM ONE (07:56)
[2019-07-26] MEDS ORDERED: TORAdol 30 mg Injection ONE (08:00)
[2019-07-26] MEDS ORDERED: Norflex 60 MG/2 ML ONE (08:00)
--- NOTE | 2019-07-26 08:25 | XRAY ---
Indication: Pain following fall. Comparison: None AP pelvis and 2 views of the left and right hip demonstrates osteopenia, mild degenerative changes lumbosacral junction, and scattered vascular calcifications. No other bony, articular, or soft tissue abnormalities.
--- NOTE | 2019-07-26 08:25 | XRAY ---
Indication: Pain following fall. Comparison: None 2 views of the right knee demonstrates osteopenia, moderate tricompartmental degenerative changes, small fabella, partially visualized old distal femur shaft fracture, and scattered vascular calcifications. No other bony, articular, or soft tissue abnormalities
--- NOTE | 2019-07-26 08:27 | XRAY ---
Indication: Pain following fall. Comparison: None 2 views of the left knee demonstrates osteopenia, moderate tricompartmental degenerative changes, small nonspecific effusion, small fabella, and scattered vascular calcifications. No other bony, articular, or soft tissue abnormalities.
[2019-07-26 08:51] VITALS: BP 164/77; PULSE 83
[2019-07-26 08:54] VITALS: O2SAT 98
== END 2019-07-26 09:40 | disposition home or self-care (01) ==
LOC: ED 06:56
DX: M25.552 Pain in left hip (principal); M25.551 Pain in right hip; M16.0 Bilateral primary osteoarthritis of hip; M17.0 Bilateral primary osteoarthritis of knee; W06.XXXA Fall from bed, initial encounter
CPT/HCPCS: 73521; 73560; 96372; 99284; J1885; J2360

== ENCOUNTER 2019-07-27 20:53 | Inpatient (IN) | payer MEDICARE ==
[2019-07-27] MEDS ORDERED: TYLENOL 325 MG PO ONE (21:02)
[2019-07-27] MEDS ORDERED: ROCEPHIN 1 Gm-D5w 50 ml Bag** 1 G/50 ML IVPB IV STA (21:02)
[2019-07-27] MEDS ORDERED: Sodium Chloride 0.9% 1000 ML 1,000 ML IV STA (21:02)
--- NOTE | 2019-07-27 21:02 | ERPHSYRPT ---
- History of Present Illness Time Seen by Provider: 07/27/19 21:00 Source: patient, EMS Exam Limitations: no limitations Physician History: ppatient is to and felt extremely weak and almost passed out. Patient was seen at his ER last night for the same thing but yesterday he actually passed out. She lives by himself. The patient also complained of generalized weakness to EMS and they found his temperature to be high. Patient complains of a fever and the source on his lower legs and generalized weakness. Timing/Duration: today, yesterday Severity: moderate Modifying Factors: Improves With: nothing Associated Symptoms: nausea, chills, fever, malaise, weakness Allergies/Adverse Reactions: No Known Drug Allergies Allergy (Verified 07/27/19 21:22) Home Medications: Aspirin [Aspir 81] 81 mg PO DAILY 07/23/12 [History] Ferrous Sulfate 325 mg [Feosol 325 mg] 325 mg PO DAILY 09/21/12 [History] Glipizide/Metformin HCl [Glipizide-Metformin 5-500 mg] 2.5 each PO BID 09/21/12 [History] Isosorbide Mononitrate 30 mg [Imdur 30 MG] 30 mg PO DAILY 09/21/12 [History ] Potassium Chloride 10 Meq Tab* [Klor Con 10 MEQ] 10 meq PO BID 09/21/12 [ History] Pravastatin Sodium 10 mg [Pravachol 10 MG] 10 mg PO HS 09/21/12 [History] Carvedilol 6.25 mg [Coreg 6.25 MG] 6.25 mg PO BID 02/04/15 [History] Clopidogrel Bisulfate 75 mg [PLAVIX 75 MG Tablet] 75 mg PO DAILY 02/04/15 [History] Lisinopril/Hydrochlorothiazide [Lisinopril-Hctz 20-25 mg Tab] 1 each PO BID 12/14 [History] raNITIdine HCl [Zantac] 150 mg PO BID 02/04/15 [History] Tamsulosin HCl 0.4 mg [Flomax 0.4 MG] 1 tab PO DAILY 08/08/17 [History] Vitamin E 1 tab PO BID 08/08/17 [History] Empagliflozin [Jardiance] 25 mg PO DAILY 08/30/17 [History] HydrALAzine HCL 25 MG TAB [Apresoline 25 MG TABLET] 25 mg PO QID 08/30/17 [History] Hydralazine HCl 1 tab PO Q4H 08/30/17 [History] cloNIDine HCL [Clonidine HCl] 0.1 mg PO DAILY 08/30/17 [History] Hx Tetanus, Diphtheria Vaccination/Date Given: No Hx Influenza Vaccination/Date Given: Yes Hx Pneumococcal Vaccination/Date Given: Yes - Review of Systems Constitutional: Fever, Chills, Fatigue, Malaise, Weakness Eyes: No Symptoms Ears, Nose, & Throat: No Symptoms, Other (3 sores on lower lip) Respiratory: No Cough, No Dyspnea Cardiac: No Chest Pain, No Edema, No Syncope Abdominal/Gastrointestinal: No Abdominal Pain, No Nausea, No Vomiting, No Diarrhea Genitourinary Symptoms: No Dysuria Musculoskeletal: No Back Pain, No Neck Pain Skin: No Rash Neurological: No Dizziness, No Focal Weakness, No Sensory Changes Psychological: No Symptoms Endocrine: No Symptoms All Other Systems: Reviewed and Negative - Past Medical History Pertinent Past Medical History: Yes Neurological History: TIA ENT History: No Pertinent History Cardiac History: Hypertension Respiratory History: No Pertinent History Endocrine Medical History: Diabetes Type II Musculoskeletal History: Arthritis GI Medical History: GI Bleed History: No Pertinent History Psycho-Social History: No Pertinent History Male Reproductive Disorders: No Pertinent History - Past Surgical History Past Surgical History: Yes Cardiac: Cardiac Stent Gastrointestinal: Hernia Repair Musculoskeletal: Orthopedic Surgery Other Surgical History: Nasal surgery - Social History Smoking Status: Former smoker Exposure to second hand smoke: No Drug Use: none Patient Lives Alone: Yes Significant Family History: no pertinent family hx - Nursing Vital Signs Nursing Vital Signs: Initial Vital Signs Temperature 100.6 F 07/27/19 21:08 Pulse Rate 87 07/27/19 21:08 Respiratory Rate 17 07/27/19 21:08 Blood Pressure 180/90 07/27/19 21:08 O2 Sat by Pulse Oximetry 95 07/27/19 21:08 - Physical Exam General Appearance: no apparent distress, alert, other (Febrile, non toxic) Eye Exam: PERRL/EOMI, eyes nml inspection Ears, Nose, Throat Exam: normal ENT inspection, TMs normal, pharynx normal, moist mucous membranes, other (3 Aphthous ulcers on lower lip) Neck Exam: normal inspection, non-tender, supple, full range of motion Respiratory Exam: normal breath sounds, lungs clear, No respiratory distress Cardiovascular Exam: regular rate/rhythm, normal heart sounds, normal peripheral pulses Gastrointestinal/Abdomen Exam: soft, normal bowel sounds, No tenderness, No mass Back Exam: normal inspection, normal range of motion, No CVA tenderness, No vertebral tenderness Extremity Exam: normal inspection, normal range of motion, pelvis stable Neurologic Exam: alert, oriented x 3, cooperative, normal mood/affect, nml cerebellar function, nml station & gait, sensation nml, No motor deficits Skin Exam: normal color, warm, dry, No rash Lymphatic Exam: No adenopathy - Course Nursing assessment & vital signs reviewed: Yes - Radiology Exams Chest X-ray Interpretation: Reviewed by me, No Pneumonia Ordered Tests: Active Orders 24 hr Category Date Time Status Information Resources Director STAT Care 07/27/19 21:04 Active EKG-ER Only STAT Care 07/27/19 22:25 Active IV Insertion STAT Care 07/27/19 21:02 Active Pulse Oximetry (ED) STAT Care 07/27/19 21:03 Active CHEST 1 VIEW (PORTABLE) Stat Exams 07/27/19 21:03 Taken HEAD WITHOUT CONTRAST [CT] Stat Exams 07/27/19 21:04 Taken BLOOD CULTURE Stat Lab 07/27/19 21:24 Received CBC W DIFF Stat Lab 07/27/19 21:24 Completed CMP Stat Lab 07/27/19 21:24 Completed CULTURE,URINE Stat Lab 07/27/19 21:25 Received Lactic Acid Stat Lab 07/27/19 21:20 Completed PROTIME WITH INR Stat Lab 07/27/19 21:24 Completed PTT Stat Lab 07/27/19 21:24 Completed TROPONIN Q3H Lab 07/27/19 21:24 Completed UA W/RFX UR CULTURE Stat Lab 07/27/19 21:25 Completed Transfer Order Routine Transfer 07/27/19 Ordered Medication Summary Generic Name Dose Route Start Last Admin Trade Name Freq PRN Reason Stop Dose Admin Sodium Chloride 1,000 mls @ 250 mls/hr 07/27/19 21:02 07/27/19 21:20 Sodium Chloride 0.9% 1000 Ml IV 07/28/19 01:01 250 mls/hr .Q4H STA Administration Discontinued Medications Generic Name Dose Route Start Last Admin Trade Name Daniella PRN Reason Stop Dose Admin Acetaminophen 650 mg 07/27/19 21:02 07/27/19 21:20 Tylenol 325 Mg PO 07/27/19 21:03 650 mg STAT ONE Administration Acetaminophen Confirm 07/27/19 21:12 Tylenol 325 Mg Administered 07/27/19 21:13 Dose 650 mg .ROUTE .STK-MED ONE Ceftriaxone Sodium/Dextrose 1 g in 50 mls @ 100 mls/hr 07/27/19 21:02 21:26 Rocephin 1 Gm-D5w 50 Ml Bag IV 07/27/19 21:31 100 ml/hr STAT STA 100 mls/hr Administration Sodium Chloride Confirm 07/27/19 21:12 Sodium Chloride 0.9% 1000 Ml Administered 07/27/19 21:13 Dose 1,000 mls @ ud .ROUTE .STK-MED ONE Ceftriaxone Sodium/Dextrose Confirm 07/27/19 21:12 Rocephin 1 Gm-D5w 50 Ml Bag Administered 07/27/19 21:13 Dose 1 g in 50 mls @ ud IV .STK-MED ONE Lab/Rad Data: Laboratory Result Diagrams 07/27/19 21:24 07/27/19 21:24 Laboratory Results 07/27/19 07/27/19 07/27/19 Range/Units 21:40 21:25 21:24 WBC (4.0-10.5) K/mm3 RBC (4.1-5.6) M/mm3 Hgb (12.5-18.0) gm/dl Hct (42-50) % MCV (78-100) fl MCH (26-32) pg MCHC (32-36) g/dl RDW (11.5-14.0) % Plt Count (150-450) K/mm3 MPV (7.5-11.0) fl Gran % (36.0-66.0) % Eos # (Auto) (0-0.5) Absolute Lymphs (auto) (1.0-4.6) Absolute Monos (auto) (0.0-1.3) Lymphocytes % (24.0-44.0) % Monocytes % (0.0-12.0) % Eosinophils % (0.00-5.0) % Basophils % (0.0-0.4) % Absolute Granulocytes (1.4-6.9) Basophils # (0-0.4) PT (8.83-12.87) SECONDS INR (0.8-3.0) APTT (24.1-36.1) SECONDS Sodium (137-145) mmol/L Potassium (3.5-5.1) mmol/L Chloride (98-107) mmol/L Carbon Dioxide (22-30) mmol/L Anion Gap (5-15) MEQ/L BUN (9-20) mg/dL Creatinine (0.66-1.25) mg/dL Estimated GFR ML/MIN Glucose (74-106) mg/dL Lactic Acid (0.4-2.0) Calcium (8.4-10.2) mg/dL Total Bilirubin (0.2-1.3) mg/dL AST (17-59) U/L ALT (0-50) U/L Alkaline Phosphatase (38-126) U/L Troponin I < 0.012 (0.000-0.034) ng/mL Serum Total Protein (6.3-8.2) g/dL Albumin (3.5-5.0) g/dL Urine Color YELLOW (YELLOW) Urine Appearance CLEAR (CLEAR) Urine pH 7.0 (5-6) Ur Specific [place] 1.012 (1.005-1.025) Urine Protein NEGATIVE (Negative) Urine Ketones NEGATIVE (NEGATIVE) Urine Blood NEGATIVE (0-5) [place]/ul Urine Nitrite NEGATIVE (NEGATIVE) Urine Bilirubin NEGATIVE (NEGATIVE) Urine Urobilinogen 2 (0-1) mg/dL Ur Leukocyte Esterase NEGATIVE (NEGATIVE) Urine WBC (Auto) NONE SEEN (0-5) /HPF Urine RBC (Auto) NONE (0-2) /HPF U Epithel Cells (Auto) NONE (FEW) /HPF Urine Bacteria (Auto) NONE SEEN (NEGATIVE) /HPF Urine Mucus (Auto) SLIGHT (NEGATIVE) /HPF Urine Culture Reflexed ORDERED SEPARATELY (NO) Urine Glucose 50 (NEGATIVE) mg/dL Influenza Type A Ag (NEGATIVE) Influenza Type B Ag (NEGATIVE) RSV (PCR) (Negative) Group A Strep Antibody NEGATIVE (NEGATIVE) 07/27/19 07/27/19 07/27/19 Range/Units 21:24 21:24 21:24 WBC 5.7 (4.0-10.5) K/mm3 RBC 3.66 L (4.1-5.6) M/mm3 Hgb 12.1 L (12.5-18.0) gm/dl Hct 36.3 L (42-50) % MCV 99.2 (78-100) fl MCH 33.1 H (26-32) pg MCHC 33.3 (32-36) g/dl RDW 13.5 (11.5-14.0) % Plt Count 190 (150-450) K/mm3 MPV 10.7 (7.5-11.0) fl Gran % 71.3 H (36.0-66.0) % Eos # (Auto) 0.12 (0-0.5) Absolute Lymphs (auto) 0.66 L (1.0-4.6) Absolute Monos (auto) 0.84 (0.0-1.3) Lymphocytes % 11.6 L (24.0-44.0) % Monocytes % 14.8 H (0.0-12.0) % Eosinophils % 2.1 (0.00-5.0) % Basophils % 0.2 (0.0-0.4) % Absolute Granulocytes 4.05 (1.4-6.9) Basophils # 0.01 (0-0.4) PT 11.8 (8.83-12.87) SECONDS INR 1.04 (0.8-3.0) APTT 33.7 (24.1-36.1) SECONDS Sodium 135 L (137-145) mmol/L Potassium 4.1 (3.5-5.1) mmol/L Chloride 100 (98-107) mmol/L Carbon Dioxide 28 (22-30) mmol/L Anion Gap 11.2 (5-15) MEQ/L BUN 29 H (9-20) mg/dL Creatinine 1.45 H (0.66-1.25) mg/dL Estimated GFR 49.2 ML/MIN Glucose 174 H (74-106) mg/dL Lactic Acid (0.4-2.0) Calcium 9.5 (8.4-10.2) mg/dL Total Bilirubin 0.50 (0.2-1.3) mg/dL AST 21 (17-59) U/L ALT 15 (0-50) U/L Alkaline Phosphatase 76 (38-126) U/L Troponin I (0.000-0.034) ng/mL Serum Total Protein 6.6 (6.3-8.2) g/dL Albumin 3.6 (3.5-5.0) g/dL Urine Color (YELLOW) Urine Appearance (CLEAR) Urine pH (5-6) Ur Specific [place] (1.005-1.025) Urine Protein (Negative) Urine Ketones (NEGATIVE) Urine Blood (0-5) Wicho/ul Urine Nitrite (NEGATIVE) Urine Bilirubin (NEGATIVE) Urine Urobilinogen (0-1) mg/dL Ur Leukocyte Esterase (NEGATIVE) Urine WBC (Auto) (0-5) /HPF Urine RBC (Auto) (0-2) /HPF U Epithel Cells (Auto) (FEW) /HPF Urine Bacteria (Auto) (NEGATIVE) /HPF Urine Mucus (Auto) (NEGATIVE) /HPF Urine Culture Reflexed (NO) Urine Glucose (NEGATIVE) mg/dL Influenza Type A Ag (NEGATIVE) Influenza Type B Ag (NEGATIVE) RSV (PCR) (Negative) Group A Strep Antibody (NEGATIVE) 07/27/19 07/27/19 Range/Units 21:20 21:15 WBC (4.0-10.5) K/mm3 RBC (4.1-5.6) M/mm3 Hgb (12.5-18.0) gm/dl Hct (42-50) % MCV (78-100) fl MCH (26-32) pg MCHC (32-36) g/dl RDW (11.5-14.0) % Plt Count (150-450) K/mm3 MPV (7.5-11.0) fl Gran % (36.0-66.0) % Eos # (Auto) (0-0.5) Absolute Lymphs (auto) (1.0-4.6) Absolute Monos (auto) (0.0-1.3) Lymphocytes % (24.0-44.0) % Monocytes % (0.0-12.0) % Eosinophils % (0.00-5.0) % Basophils % (0.0-0.4) % Absolute Granulocytes (1.4-6.9) Basophils # (0-0.4) PT (8.83-12.87) SECONDS INR (0.8-3.0) APTT (24.1-36.1) SECONDS Sodium (137-145) mmol/L Potassium (3.5-5.1) mmol/L Chloride (98-107) mmol/L Carbon Dioxide (22-30) mmol/L Anion Gap (5-15) MEQ/L BUN (9-20) mg/dL Creatinine (0.66-1.25) mg/dL Estimated GFR ML/MIN Glucose (74-106) mg/dL Lactic Acid 1.2 (0.4-2.0) Calcium (8.4-10.2) mg/dL Total Bilirubin (0.2-1.3) mg/dL AST (17-59) U/L ALT (0-50) U/L Alkaline Phosphatase (38-126) U/L Troponin I (0.000-0.034) ng/mL Serum Total Protein (6.3-8.2) g/dL Albumin (3.5-5.0) g/dL Urine Color (YELLOW) Urine Appearance (CLEAR) Urine pH (5-6) Ur Specific [place] (1.005-1.025) Urine Protein (Negative) Urine Ketones (NEGATIVE) Urine Blood (0-5) [place]o/ul Urine Nitrite (NEGATIVE) Urine Bilirubin (NEGATIVE) Urine Urobilinogen (0-1) mg/dL Ur Leukocyte Esterase (NEGATIVE) Urine WBC (Auto) (0-5) /HPF Urine RBC (Auto) (0-2) /HPF U Epithel Cells (Auto) (FEW) /HPF Urine Bacteria (Auto) (NEGATIVE) /HPF Urine Mucus (Auto) (NEGATIVE) /HPF Urine Culture Reflexed (NO) Urine Glucose (NEGATIVE) mg/dL Influenza Type A Ag NEGATIVE (NEGATIVE) Influenza Type B Ag NEGATIVE (NEGATIVE) RSV (PCR) NEGATIVE (Negative) Group A Strep Antibody (NEGATIVE) - Progress Progress: improved Progress Note: 07/27/19 22:[address] head report. Discussed with : Patty Will see patient in: hospital (observation) Counseled pt/family regarding: lab results, diagnosis - Departure Departure Disposition: Observation Clinical Impression: Dizziness, Near syncope Fever Qualifiers: Fever type: unspecified Qualified Code(s): R50.9 - Fever, unspecified Condition: Good Critical Care Time: No Referrals: ROSARIO,TIMOTHY, MD [Primary Care Provider] -
[2019-07-27] MEDS ORDERED: Sodium Chloride 0.9% 1000 ML 1,000 ML ONE (21:12)
[2019-07-27] MEDS ORDERED: ROCEPHIN 1 Gm-D5w 50 ml Bag** 1 G/50 ML IVPB IV ONE (21:12)
[2019-07-27] MEDS ORDERED: TYLENOL 325 MG ONE (21:12)
[2019-07-27 21:27] LABS: Absolute Neutrophil Ct (ANC) 4.05 (1.4-6.9); BASOPHIL % 0.2 % (0.0-0.4); Basophil (Absolute #) 0.01 (0-0.4); Eosinophil % 2.1 % (0.00-5.0); Eosinophil (Absolute #) 0.12 (0-0.5); Hematocrit 36.3 % (42-50); Hemoglobin 12.1 gm/dl (12.5-18.0); Lymphocyte (Absolute #) 0.66 (1.0-4.6); Lymphocytes % 11.6 % (24.0-44.0); Mean Cell Volume 99.2 fl (78-100); Mean Corpuscular Hemoglobin 33.1 pg (26-32); Mean Corpuscular Hgb Concent. 33.3 g/dl (32-36); Mean Platelet Volume 10.7 fl (7.5-11.0); Monocyte (Absolute #) 0.84 (0.0-1.3); Monocytes % 14.8 % (0.0-12.0); Neutrophil % 71.3 % (36.0-66.0); Platelet Count 190 K/mm3 (150-450); Red Blood Count 3.66 M/mm3 (4.1-5.6); Red Cell Distribution Width 13.5 % (11.5-14.0); White Blood Count 5.7 K/mm3 (4.0-10.5)
[2019-07-27 21:32] LABS: Appearance CLEAR (CLEAR); Bilirubin NEGATIVE (NEGATIVE); Blood NEGATIVE Ery/ul (0-5); Glucose 50 mg/dL (NEGATIVE); Ketones NEGATIVE (NEGATIVE); Leukocyte Esterase NEGATIVE (NEGATIVE); Mucus SLIGHT /HPF (NEGATIVE); Nitrite NEGATIVE (NEGATIVE); Protein,Urine Dip NEGATIVE (Negative); Specific Gravity 1.012 (1.005-1.025); Urobilinogen 2 mg/dL (0-1)
[2019-07-27 21:36] LABS: INR 1.04 (0.8-3.0); PROTIME 11.8 SECONDS (8.83-12.87)
[2019-07-27 21:39] LABS: ALBUMIN 3.6 g/dL (3.5-5.0); ANION GAP 11.2 MEQ/L (5-15); BILIRUBIN,TOTAL 0.5 mg/dL (0.2-1.3); Calcium 9.5 mg/dL (8.4-10.2); Creatinine 1 1.45 mg/dL (0.66-1.25); PTT 33.7 SECONDS (24.1-36.1); Potassium 4.1 mmol/L (3.5-5.1); Total Protein 6.6 g/dL (6.3-8.2)
[2019-07-27 21:47] LABS: Bacteria NONE SEEN /HPF (NEGATIVE); WBC NONE SEEN /HPF (0-5)
[2019-07-27 22:16] LABS: INFLUENZA A NEGATIVE (NEGATIVE); INFLUENZA B NEGATIVE (NEGATIVE); RESPIRATORY SYNCTIAL VIRUS NEGATIVE (Negative)
[2019-07-28] MEDS: TYLENOL 325 MG PO PRN (02:10)
--- NOTE | 2019-07-28 09:01 | XRAY ---
Indication: Fever and weakness. Comparison: March 13, 2019. Portable chest clear. Heart and mediastinal structures within normal limits. Bony thorax intact again with osteopenia and degenerative changes. Impression: Nonacute chest.
--- NOTE | 2019-07-28 09:01 | XRAY ---
Indication: Weakness. Fall. Multiple contiguous axial images obtained through the head without contrast. Comparison: March 13, 2019. Again age-appropriate global atrophy and mild periventricular degenerative micro-ischemia bilaterally. No acute intracranial hemorrhage, abnormal extra-axial fluid collection, or mass effect. Fourth ventricle is midline. Bony calvarium intact. Again mucosal thickening of both frontal and both maxillary sinuses. Stable ethmoid sinus soft tissue mass. Mastoid air cells are clear. Impression: Stable nonacute senile brain again with paranasal sinus disease and right ethmoid sinus soft tissue mass. Comment: Preliminary interpretation was made by [facility]. No critical discrepancy.
[2019-07-28] MEDS: NovoLOG Insulin SQ PRN ×2 (12:28→21:29)
--- NOTE | 2019-07-28 13:22 | PCM.HP ---
History of Present Illness - Chief Complaint Chief Complaint: Dizziness; Near Syncope today History of Present Illness: is a 84 year old male.patient felt extremely weak and almost passed out. Patient was seen at his ER last night for the same thing but yesterday he actually passed out. She lives by himself. The patient also complained of generalized weakness to EMS and they found his temperature to be high. Patient complains of a fever and the source on his lower legs and generalized weakness. Timing/Duration: today, yesterday Severity: moderate Modifying Factors: Improves With: nothing Associated Symptoms: nausea, chills, fever, malaise, weakness - Review of Systems Constitutional: No Fever, No Chills Eyes: No Symptoms Ears, Nose, & Throat: No Symptoms Respiratory: No Cough, No Short Of Breath Cardiac: No Chest Pain, No Edema, No Syncope Abdominal/Gastrointestinal: No Abdominal Pain, No Nausea, No Vomiting, No Diarrhea Genitourinary Symptoms: No Dysuria Musculoskeletal: No Back Pain, No Neck Pain Skin: No Rash Neurological: No Dizziness, No Focal Weakness, No Sensory Changes Psychological: No Symptoms Endocrine: No Symptoms Hematologic/Lymphatic: No Symptoms Immunological/Allergic: No Symptoms Medications & Allergies Home Medications: Home Medication List Aspirin [Aspir 81] 81 mg PO DAILY 07/23/12 [History Confirmed 07/28/19] Ferrous Sulfate 325 mg [Feosol 325 mg] 325 mg PO DAILY 09/21/12 [History Confirmed 07/28/19] Glipizide/Metformin HCl [Glipizide-Metformin 5-500 mg] 2.5 tab PO BID 09/21/12 [ History Confirmed 07/28/19] Isosorbide Mononitrate 30 mg [Imdur 30 MG] 30 mg PO DAILY 09/21/12 [ History Confirmed 07/28/19] Potassium Chloride 10 Meq Tab* [Klor Con 10 MEQ] 10 meq PO BID 09/21/12 [ History Confirmed 07/28/19] Pravastatin Sodium 10 mg [Pravachol 10 MG] 10 mg PO HS 09/21/12 [History Confirmed 07/28/19] Carvedilol 6.25 mg [Coreg 6.25 MG] 6.25 mg PO BID 02/04/15 [History Confirmed 07/28/19] Clopidogrel Bisulfate 75 mg [PLAVIX 75 MG Tablet] 75 mg PO DAILY 02/04/15 [History Confirmed 07/28/19] Lisinopril/Hydrochlorothiazide [Lisinopril-Hctz 20-25 mg Tab] 1 each PO DAILY [History Confirmed 07/28/19] Tamsulosin HCl 0.4 mg [Flomax 0.4 MG] 0.4 mg PO DAILY 08/08/17 [History Confirmed 07/28/19] Acetaminophen 500 mg [Tylenol Extra Strength 500 mg] 500 - 1,000 mg PO Q6HPRN PRN 07/28/19 [History Confirmed 07/28/19] Amlodipine Besylate 2.5 mg PO DAILY 07/28/19 [History Confirmed 07/28/19] Folic Acid 800 mcg PO DAILY 07/28/19 [History Confirmed 07/28/19] Omeprazole 40 mg PO BIDAC 07/28/19 [History Confirmed 07/28/19] Oxybutynin Chloride [Oxybutynin Chloride ER] 5 mg PO DAILY 07/28/19 [History Confirmed 07/28/19] PARoxetine HCl [Paroxetine HCl] 10 mg PO DAILY 07/28/19 [History Confirmed 07/28] Vit C/E/Zn/Coppr/Lutein/Zeaxan [Preservision Areds 2 Softgel] 1 cap PO BID 07/28 [History Confirmed 07/28/19] Vitamin E 400 Units [Vitamin E 400 UNIT SOFTGEL] 400 unit PO BID 07/28/19 [History Confirmed 07/28/19] Allergies/Adverse Reactions: Allergies Allergy/AdvReac Type Severity Reaction Status Date / Time No Known Drug Allergies Allergy Verified 07/27/19 21:22 - Past Medical History Past Medical History: Yes Neurological History: TIA ENT History: No Pertinent History Cardiac History: Hypertension Respiratory History: No Pertinent History Endocrine Medical History: Diabetes Type II Musculoskelatal History: Arthritis GI Medical History: GI Bleed History: No Pertinent History Pyscho-Social History: No Pertinent History Male Reproductive Disorders: No Pertinent History - Past Surgical History Past Surgical History: Yes Cardiac History: Cardiac Stent GI Surgical History: Hernia Repair Musculskeletal Surgical Hx: Orthopedic Surgery Other Surgical History: Nasal surgery - Social History Smoking Status: Former smoker Exposure to second hand smoke: No Alcohol: None Drug Use: none Significant Family History: no pertinent family hx - Physical Exam Vital Signs: Vital Signs - 24 hr Temp Pulse Resp BP Pulse Ox 07/28/19 11:20 98.3 F 73 18 168/76 98 07/28/19 07:13 97.9 F 71 18 151/67 94 L 07/28/19 04:00 97.9 F 74 16 159/72 92 L 07/28/19 00:46 98.7 F 90 18 139/63 95 07/27/19 22:56 74 14 147/80 97 07/27/19 22:36 100.4 F 75 21 147/85 95 07/27/19 21:08 100.6 F 87 17 180/90 96 General Appearance: no apparent distress, alert Neurologic Exam: alert, oriented x 3, cooperative, normal mood/affect, nml cerebellar function, nml station & gait, sensation nml, No motor deficits Eye Exam: PERRL/EOMI, eyes nml inspection Ears, Nose, Throat Exam: normal ENT inspection, TMs normal, pharynx normal, moist mucous membranes Neck Exam: normal inspection, non-tender, supple, full range of motion Respiratory Exam: normal breath sounds, lungs clear, No respiratory distress Cardiovascular Exam: regular rate/rhythm, normal heart sounds, normal peripheral pulses Gastrointestinal/Abdomen Exam: soft, normal bowel sounds, No tenderness, No mass Back Exam: normal inspection, normal range of motion, No CVA tenderness, No vertebral tenderness Extremity Exam: normal inspection, normal range of motion, pelvis stable Skin Exam: normal color, warm, dry, No rash Lymphatic Exam: No adenopathy Results - Labs Lab/Micro Results: Accuchecks Accucheck Value: 264 Accucheck Value: 180 Lab Results-Last 24 Hours 07/27/19 07/27/19 07/27/19 Range/Units 00:02 21:15 21:20 WBC (4.0-10.5) K/mm3 RBC (4.1-5.6) M/mm3 Hgb (12.5-18.0) gm/dl Hct (42-50) % MCV (78-100) fl MCH (26-32) pg MCHC (32-36) g/dl RDW (11.5-14.0) % Plt Count (150-450) K/mm3 MPV (7.5-11.0) fl Gran % (36.0-66.0) % Eos # (Auto) (0-0.5) Absolute Lymphs (auto) (1.0-4.6) Absolute Monos (auto) (0.0-1.3) Lymphocytes % (24.0-44.0) % Monocytes % (0.0-12.0) % Eosinophils % (0.00-5.0) % Basophils % (0.0-0.4) % Absolute Granulocytes (1.4-6.9) Basophils # (0-0.4) PT (8.83-12.87) SECONDS INR (0.8-3.0) APTT (24.1-36.1) SECONDS Sodium (137-145) mmol/L Potassium (3.5-5.1) mmol/L Chloride (98-107) mmol/L Carbon Dioxide (22-30) mmol/L Anion Gap (5-15) MEQ/L BUN (9-20) mg/dL Creatinine (0.66-1.25) mg/dL Estimated GFR ML/MIN Glucose (74-106) mg/dL Lactic Acid 1.2 (0.4-2.0) Calcium (8.4-10.2) mg/dL Total Bilirubin (0.2-1.3) mg/dL AST (17-59) U/L ALT (0-50) U/L Alkaline Phosphatase (38-126) U/L Troponin I 0.015 (0.000-0.034) ng/mL Serum Total Protein (6.3-8.2) g/dL Albumin (3.5-5.0) g/dL Prealbumin (17.6-36.0) mg/dL Urine Color (YELLOW) Urine Appearance (CLEAR) Urine pH (5-6) Ur Specific [place] (1.005-1.025) Urine Protein (Negative) Urine Ketones (NEGATIVE) Urine Blood (0-5) Wicho/ul Urine Nitrite (NEGATIVE) Urine Bilirubin (NEGATIVE) Urine Urobilinogen (0-1) mg/dL Ur Leukocyte Esterase (NEGATIVE) Urine WBC (Auto) (0-5) /HPF Urine RBC (Auto) (0-2) /HPF U Epithel Cells (Auto) (FEW) /HPF Urine Bacteria (Auto) (NEGATIVE) /HPF Urine Mucus (Auto) (NEGATIVE) /HPF Urine Culture Reflexed (NO) Urine Glucose (NEGATIVE) mg/dL Influenza Type A Ag NEGATIVE (NEGATIVE) Influenza Type B Ag NEGATIVE (NEGATIVE) RSV (PCR) NEGATIVE (Negative) Group A Strep Antibody (NEGATIVE) 07/27/19 07/27/19 07/27/19 Range/Units 21:24 21:24 21:24 WBC 5.7 (4.0-10.5) K/mm3 RBC 3.66 L (4.1-5.6) M/mm3 Hgb 12.1 L (12.5-18.0) gm/dl Hct 36.3 L (42-50) % MCV 99.2 (78-100) fl MCH 33.1 H (26-32) pg MCHC 33.3 (32-36) g/dl RDW 13.5 (11.5-14.0) % Plt Count 190 (150-450) K/mm3 MPV 10.7 (7.5-11.0) fl Gran % 71.3 H (36.0-66.0) % Eos # (Auto) 0.12 (0-0.5) Absolute Lymphs (auto) 0.66 L (1.0-4.6) Absolute Monos (auto) 0.84 (0.0-1.3) Lymphocytes % 11.6 L (24.0-44.0) % Monocytes % 14.8 H (0.0-12.0) % Eosinophils % 2.1 (0.00-5.0) % Basophils % 0.2 (0.0-0.4) % Absolute Granulocytes 4.05 (1.4-6.9) Basophils # 0.01 (0-0.4) PT 11.8 (8.83-12.87) SECONDS INR 1.04 (0.8-3.0) APTT 33.7 (24.1-36.1) SECONDS Sodium 135 L (137-145) mmol/L Potassium 4.1 (3.5-5.1) mmol/L Chloride 100 (98-107) mmol/L Carbon Dioxide 28 (22-30) mmol/L Anion Gap 11.2 (5-15) MEQ/L BUN 29 H (9-20) mg/dL Creatinine 1.45 H (0.66-1.25) mg/dL Estimated GFR 49.2 ML/MIN Glucose 174 H (74-106) mg/dL Lactic Acid (0.4-2.0) Calcium 9.5 (8.4-10.2) mg/dL Total Bilirubin 0.50 (0.2-1.3) mg/dL AST 21 (17-59) U/L ALT 15 (0-50) U/L Alkaline Phosphatase 76 (38-126) U/L Troponin I (0.000-0.034) ng/mL Serum Total Protein 6.6 (6.3-8.2) g/dL Albumin 3.6 (3.5-5.0) g/dL Prealbumin (17.6-36.0) mg/dL Urine Color (YELLOW) Urine Appearance (CLEAR) Urine pH (5-6) Ur Specific [place] (1.005-1.025) Urine Protein (Negative) Urine Ketones (NEGATIVE) Urine Blood (0-5) Wicho/ul Urine Nitrite (NEGATIVE) Urine Bilirubin (NEGATIVE) Urine Urobilinogen (0-1) mg/dL Ur Leukocyte Esterase (NEGATIVE) Urine WBC (Auto) (0-5) /HPF Urine RBC (Auto) (0-2) /HPF U Epithel Cells (Auto) (FEW) /HPF Urine Bacteria (Auto) (NEGATIVE) /HPF Urine Mucus (Auto) (NEGATIVE) /HPF Urine Culture Reflexed (NO) Urine Glucose (NEGATIVE) mg/dL Influenza Type A Ag (NEGATIVE) Influenza Type B Ag (NEGATIVE) RSV (PCR) (Negative) Group A Strep Antibody (NEGATIVE) 07/27/19 07/27/19 07/27/19 Range/Units 21:24 21:25 21:40 WBC (4.0-10.5) K/mm3 RBC (4.1-5.6) M/mm3 Hgb (12.5-18.0) gm/dl Hct (42-50) % MCV (78-100) fl MCH (26-32) pg MCHC (32-36) g/dl RDW (11.5-14.0) % Plt Count (150-450) K/mm3 MPV (7.5-11.0) fl Gran % (36.0-66.0) % Eos # (Auto) (0-0.5) Absolute Lymphs (auto) (1.0-4.6) Absolute Monos (auto) (0.0-1.3) Lymphocytes % (24.0-44.0) % Monocytes % (0.0-12.0) % Eosinophils % (0.00-5.0) % Basophils % (0.0-0.4) % Absolute Granulocytes (1.4-6.9) Basophils # (0-0.4) PT (8.83-12.87) SECONDS INR (0.8-3.0) APTT (24.1-36.1) SECONDS Sodium (137-145) mmol/L Potassium (3.5-5.1) mmol/L Chloride (98-107) mmol/L Carbon Dioxide (22-30) mmol/L Anion Gap (5-15) MEQ/L BUN (9-20) mg/dL Creatinine (0.66-1.25) mg/dL Estimated GFR ML/MIN Glucose (74-106) mg/dL Lactic Acid (0.4-2.0) Calcium (8.4-10.2) mg/dL Total Bilirubin (0.2-1.3) mg/dL AST (17-59) U/L ALT (0-50) U/L Alkaline Phosphatase (38-126) U/L Troponin I < 0.012 (0.000-0.034) ng/mL Serum Total Protein (6.3-8.2) g/dL Albumin (3.5-5.0) g/dL Prealbumin (17.6-36.0) mg/dL Urine Color YELLOW (YELLOW) Urine Appearance CLEAR (CLEAR) Urine pH 7.0 (5-6) Ur Specific [place] 1.012 (1.005-1.025) Urine Protein NEGATIVE (Negative) Urine Ketones NEGATIVE (NEGATIVE) Urine Blood NEGATIVE (0-5) Wicho/ul Urine Nitrite NEGATIVE (NEGATIVE) Urine Bilirubin NEGATIVE (NEGATIVE) Urine Urobilinogen 2 (0-1) mg/dL Ur Leukocyte Esterase NEGATIVE (NEGATIVE) Urine WBC (Auto) NONE SEEN (0-5) /HPF Urine RBC (Auto) NONE (0-2) /HPF U Epithel Cells (Auto) NONE (FEW) /HPF Urine Bacteria (Auto) NONE SEEN (NEGATIVE) /HPF Urine Mucus (Auto) SLIGHT (NEGATIVE) /HPF Urine Culture Reflexed ORDERED SEPARATELY (NO) Urine Glucose 50 (NEGATIVE) mg/dL Influenza Type A Ag (NEGATIVE) Influenza Type B Ag (NEGATIVE) RSV (PCR) (Negative) Group A Strep Antibody NEGATIVE (NEGATIVE) 07/28/19 Range/Units 00:00 WBC (4.0-10.5) K/mm3 RBC (4.1-5.6) M/mm3 Hgb (12.5-18.0) gm/dl Hct (42-50) % MCV (78-100) fl MCH (26-32) pg MCHC (32-36) g/dl RDW (11.5-14.0) % Plt Count (150-450) K/mm3 MPV (7.5-11.0) fl Gran % (36.0-66.0) % Eos # (Auto) (0-0.5) Absolute Lymphs (auto) (1.0-4.6) Absolute Monos (auto) (0.0-1.3) Lymphocytes % (24.0-44.0) % Monocytes % (0.0-12.0) % Eosinophils % (0.00-5.0) % Basophils % (0.0-0.4) % Absolute Granulocytes (1.4-6.9) Basophils # (0-0.4) PT (8.83-12.87) SECONDS INR (0.8-3.0) APTT (24.1-36.1) SECONDS Sodium (137-145) mmol/L Potassium (3.5-5.1) mmol/L Chloride (98-107) mmol/L Carbon Dioxide (22-30) mmol/L Anion Gap (5-15) MEQ/L BUN (9-20) mg/dL Creatinine (0.66-1.25) mg/dL Estimated GFR ML/MIN Glucose (74-106) mg/dL Lactic Acid (0.4-2.0) Calcium (8.4-10.2) mg/dL Total Bilirubin (0.2-1.3) mg/dL AST (17-59) U/L ALT (0-50) U/L Alkaline Phosphatase (38-126) U/L Troponin I (0.000-0.034) ng/mL Serum Total Protein (6.3-8.2) g/dL Albumin (3.5-5.0) g/dL Prealbumin 24.43 (17.6-36.0) mg/dL Urine Color (YELLOW) Urine Appearance (CLEAR) Urine pH (5-6) Ur Specific [place] (1.005-1.025) Urine Protein (Negative) Urine Ketones (NEGATIVE) Urine Blood (0-5) Wicho/ul Urine Nitrite (NEGATIVE) Urine Bilirubin (NEGATIVE) Urine Urobilinogen (0-1) mg/dL Ur Leukocyte Esterase (NEGATIVE) Urine WBC (Auto) (0-5) /HPF Urine RBC (Auto) (0-2) /HPF U Epithel Cells (Auto) (FEW) /HPF Urine Bacteria (Auto) (NEGATIVE) /HPF Urine Mucus (Auto) (NEGATIVE) /HPF Urine Culture Reflexed (NO) Urine Glucose (NEGATIVE) mg/dL Influenza Type A Ag (NEGATIVE) Influenza Type B Ag (NEGATIVE) RSV (PCR) (Negative) Group A Strep Antibody (NEGATIVE) Accuchecks Accucheck Value: 264 Accucheck Value: 180 - Radiology Impressions Radiology Exams & Impressions: Radiology Procedures Category Date Time Status CHEST 1 VIEW (PORTABLE) Stat Exams 07/27/19 21:03 Completed HEAD WITHOUT CONTRAST [CT] Stat Exams 07/27/19 21:04 Completed - Other Procedures and Tests Respiratory Therapy 07/28/19 04:40 Oxygen NASAL CANNULA 2 lpm Assessment/Plan (1) Hypotension due to drugs Current Visit: Yes Status: Acute Assessment & Plan: Patient was taking double dose of lisinopril/ HCTZ, was causing fall and syncope. will adjust medications (2) Dizziness Current Visit: Yes Status: Acute Code(s): R42 - DIZZINESS AND GIDDINESS (3) Near syncope Current Visit: Yes Status: Acute (4) Hypertension Current Visit: No Status: Chronic Qualifiers: Code(s): I10 - ESSENTIAL (PRIMARY) HYPERTENSION (5) Dizziness Current Visit: No Status: Resolved Code(s): R42 - DIZZINESS AND GIDDINESS
[2019-07-28] MEDS ORDERED: TYLENOL EXTRA STRENGTH 500 MG PO PRN (13:40)
[2019-07-28] MEDS: Imdur 30 MG PO SCH (15:19)
[2019-07-28] MEDS: PLAVIX 75 MG Tablet PO SCH (15:19)
[2019-07-28] MEDS: Ditropan XL 5 MG PO SCH (15:20)
[2019-07-28] MEDS: ECOTRIN 81 MG PO SCH (15:20)
[2019-07-28] MEDS: Zestril 20 MG PO SCH (15:20)
[2019-07-28] MEDS: Flomax 0.4 MG PO SCH (15:21)
[2019-07-28] MEDS: hydroDIURIL 25 MG PO SCH (15:21)
[2019-07-28] MEDS: FEOSOL 325 MG PO SCH (15:21)
[2019-07-28] MEDS: Coreg 6.25 MG PO SCH ×2 (15:22→21:28)
[2019-07-28] MEDS: NORVASC 5 MG PO SCH (15:22)
[2019-07-28] MEDS: FOLATE 1 MG PO SCH (15:22)
[2019-07-28] MEDS: Paxil 20 MG PO SCH (15:25)
[2019-07-28] MEDS: Klor Con 10 MEQ PO SCH ×2 (15:26→21:28)
[2019-07-28] MEDS ORDERED: NON-FORMULARY ITEM (Omeprazole [Omeprazole] 40 MG) PO SCH (16:30)
[2019-07-28] MEDS: Glucotrol 5 MG PO SCH (18:14)
[2019-07-28] MEDS: Protonix 40MG Tablet PO SCH (18:14)
[2019-07-28] MEDS: Glucophage 500 MG PO SCH (18:15)
[2019-07-28] MEDS: ROCEPHIN 1 Gm-D5w 50 ml Bag** 1 G/50 ML IVPB IV SCH (21:28)
[2019-07-28] MEDS: Ocuvite Tablet PO SCH (21:28)
[2019-07-28] MEDS: Zocor 10MG PO SCH (21:28)
[2019-07-28] MEDS: Vitamin E 400 UNIT SOFTGEL PO SCH (21:28)
[2019-07-28] MEDS ORDERED: PRAVASTATIN SODIUM 10 MG PO SCH (22:00)
[2019-07-28] MEDS ORDERED: GLIPIZIDE PO SCH (22:00)
[2019-07-28] MEDS ORDERED: NON-FORMULARY ITEM (Vit C/E/Zn/Coppr/Lutein/Zeaxan [Preservision Areds 2 Softgel] 1 CAP) PO SCH (22:00)
[2019-07-28] MEDS ORDERED: METFORMIN HCL PO SCH (22:00)
[2019-07-29] MEDS: Protonix 40MG Tablet PO SCH ×2 (07:28→16:50)
[2019-07-29] MEDS: Glucophage 500 MG PO SCH (07:28)
[2019-07-29] MEDS: Glucotrol 5 MG PO SCH ×2 (07:28→16:49)
[2019-07-29] MEDS: Ditropan XL 5 MG PO SCH (09:15)
[2019-07-29] MEDS: FOLATE 1 MG PO SCH (09:16)
[2019-07-29] MEDS: Klor Con 10 MEQ PO SCH ×2 (09:16→21:50)
[2019-07-29] MEDS: Paxil 20 MG PO SCH (09:16)
[2019-07-29] MEDS: Ocuvite Tablet PO SCH ×2 (09:16→21:50)
[2019-07-29] MEDS: Coreg 6.25 MG PO SCH ×2 (09:16→21:50)
[2019-07-29] MEDS: ECOTRIN 81 MG PO SCH (09:16)
[2019-07-29] MEDS: PLAVIX 75 MG Tablet PO SCH (09:16)
[2019-07-29] MEDS: Zestril 20 MG PO SCH (09:16)
[2019-07-29] MEDS: FEOSOL 325 MG PO SCH (09:16)
[2019-07-29] MEDS: NORVASC 5 MG PO SCH (09:16)
[2019-07-29] MEDS: Vitamin E 400 UNIT SOFTGEL PO SCH ×2 (09:17→21:50)
[2019-07-29] MEDS: hydroDIURIL 25 MG PO SCH (09:17)
[2019-07-29] MEDS: Flomax 0.4 MG PO SCH (09:17)
[2019-07-29] MEDS: Imdur 30 MG PO SCH (09:17)
[2019-07-29] MEDS ORDERED: FOLIC ACID 800 MCG PO SCH (10:00)
[2019-07-29] MEDS ORDERED: NON-FORMULARY ITEM (Lisinopril/Hydrochlorothiazide [Lisinopril-Hctz 20-25 Mg Tab] 1 EACH) PO SCH (10:00)
[2019-07-29] MEDS ORDERED: NON-FORMULARY ITEM (Paroxetine Hcl [Paroxetine Hcl] 10 MG) PO SCH (10:00)
--- NOTE | 2019-07-29 12:20 | PCM.NOTE ---
Date and Time: 07/29/191218 Subjective Assessment: doing ok, c/o diarrhea - Review of Systems Constitutional: No Fever, No Chills Eyes: No Symptoms Ears, Nose, & Throat: No Symptoms Respiratory: No Cough, No Short Of Breath Cardiac: No Chest Pain, No Edema, No Syncope Abdominal/Gastrointestinal: No Abdominal Pain, No Nausea, No Vomiting, No Diarrhea Genitourinary Symptoms: No Dysuria Musculoskeletal: No Back Pain, No Neck Pain Skin: No Rash Neurological: No Dizziness, No Focal Weakness, No Sensory Changes Psychological: No Symptoms Endocrine: No Symptoms Hematologic/Lymphatic: No Symptoms Immunological/Allergic: No Symptoms Objective Exam General Appearance: no apparent distress, alert Neurologic Exam: alert, oriented x 3, cooperative, normal mood/affect, nml cerebellar function, sensation nml, No motor deficits Skin Exam: normal color, warm, dry Eye Exam: PERRL, EOMI, eyes nml inspection Ears, Nose, Throat Exam: normal ENT inspection, pharynx normal, moist mucous membranes Neck Exam: normal inspection, non-tender, supple, full range of motion Respiratory Exam: normal breath sounds, lungs clear, No respiratory distress Cardiovascular Exam: regular rate/rhythm, normal heart sounds Gastrointestinal/Abdomen Exam: soft, No tenderness, No mass Extremity Exam: normal inspection, normal range of motion Back Exam: normal inspection, normal range of motion, No CVA tenderness, No vertebral tenderness Male Genitalia Exam: deferred Rectal Exam: deferred OBJECTIVE DATA Vital Signs: Vital Signs - 24 hr Temp Pulse Resp BP Pulse Ox 07/29/19 11:57 97.9 F 66 18 110/63 96 07/29/19 07:40 94 L 07/29/19 07:39 98.3 F 63 18 152/69 94 L 07/29/19 04:00 98.6 F 68 20 121/59 93 L 07/29/19 00:00 79 12 94 L 07/28/19 21:21 93 L 07/28/19 20:00 98.6 F 69 20 138/63 93 L 07/28/19 15:49 98.5 F 86 18 149/66 94 L Pain Assessment - Last Documented Pain Intensity 0 Pain Scale Used 0-10 Pain Scale Intake and Output: Intake & Output 07/27/19 07/28/19 07/29/19 07/30/19 11:59 11:59 11:59 11:59 Intake Total 0 1977 Output Total 2009 3999 Balance -640 -2021 Weight 80 kg Lab Results: Accuchecks Date 07/29/19 Date 07/29/19 Date 07/28/19 Time 12:16 Time 07:37 Time 22:00 Accucheck Value: 182 Accucheck Value: 140 Accucheck Value: 209 Accucheck Value: 158 Lab Results-Last 24 Hours 07/29/19 Range/Units 11:10 Hemoglobin A1c 7.09 H (4.5-6.0) % Radiology Exams: Radiology Procedures Category Date Time Status CHEST 1 VIEW (PORTABLE) Stat Exams 07/27/19 21:03 Completed HEAD WITHOUT CONTRAST [CT] Stat Exams 07/27/19 21:04 Completed Multi-Disciplinary Progress Notes: Multi-Disciplinary Progress Notes 07/29/19 10:56 Case Management Note by Ekta Tenorio Addendum entered by Ekta Tenorio 07/29/19 10:57: PATIENT ALSO INTERESTED IN HOME HEALTH CARE AT DC HOME WHEN THAT TIME COMES Original Note: S/W PATIENT AT THIS TIME. PATIENT WOULD LIKE TO REHAB SOME PRIOR TO DCING HOME. PATIENT INTERESTED IN SWINGBED. WILL CONTINUE TO FOLLOW Initialized on 07/29/19 10:56 - END OF NOTE Assessment/Plan (1) Hypotension due to drugs Current Visit: Yes Status: Acute Assessment & Plan: Last Vital Signs Temp 97.9 F 07/29/19 11:57 Pulse 66 07/29/19 11:57 Resp 18 07/29/19 11:57 BP 110/63 07/29/19 11:57 Pulse Ox 96 07/29/19 11:57 Allergies No Known Drug Allergies Allergy (Verified 07/27/19 21:22) Active Medications Acetaminophen (Tylenol 325 Mg) 650 mg PO Q4H PRN PRN PRN Reason: PAIN AND/OR FEVER Stop: 08/26/19 23:27 Last Admin: 07/28/19 02:10 Dose: 650 mg Acetaminophen (Tylenol Extra Strength 500 Mg) 500 - 1,000 mg PO Q6HPRN PRN PRN Reason: PAIN AND/OR FEVER Stop: 08/27/19 13:39 Amlodipine Besylate (Norvasc 5 Mg) 2.5 mg PO DAILY [facility] Stop: 08/27/19 13:59 Last Admin: 07/29/19 09:16 Dose: 2.5 mg Aspirin (Ecotrin 81 Mg) 81 mg PO DAILY [facility] Stop: 08/27/19 13:59 Last Admin: 07/29/19 09:16 Dose: 81 mg Carvedilol (Coreg 6.25 Mg) 6.25 mg PO BID [facility] Stop: 08/27/19 13:59 Last Admin: 07/29/19 09:16 Dose: 6.25 mg Clopidogrel Bisulfate (Plavix 75 Mg Tablet) 75 mg PO DAILY [facility] Stop: 08/27/19 13:59 Last Admin: 07/29/19 09:16 Dose: 75 mg Ferrous Sulfate (Feosol 325 Mg) 325 mg PO DAILY [facility] Stop: 08/27/19 13:59 Last Admin: 07/29/19 09:16 Dose: 325 mg Folic Acid (Folate 1 Mg) 1 mg PO DAILY [facility] Stop: 08/27/19 13:59 Last Admin: 07/29/19 09:16 Dose: 1 mg Glipizide (Glucotrol 5 Mg) 12.5 mg PO BIDWM [facility] Stop: 08/27/19 16:59 Last Admin: 07/29/19 07:28 Dose: 12.5 mg Hydrochlorothiazide (Hydrodiuril 25 Mg) 25 mg PO DAILY [facility] Stop: 08/27/19 13:59 Last Admin: 07/29/19 09:17 Dose: 25 mg Ceftriaxone Sodium/Dextrose (Rocephin 1 Gm-D5w 50 Ml Bag) 1 g in 50 mls @ 100 mls/hr IV Q24H22 [facility] Stop: 08/27/19 21:59 Last Admin: 07/28/19 21:28 Dose: 100 mls/hr Insulin Aspart (Novolog Insulin) 0 unit SQ UD PRN PRN Reason: HYPERGLYCEMIA Stop: 08/26/19 23:27 Last Admin: 07/28/19 21:29 Dose: 2 unit Isosorbide Mononitrate (Imdur 30 Mg) 30 mg PO DAILY [facility] Stop: 08/27/19 13:59 Last Admin: 07/29/19 09:17 Dose: 30 mg Lisinopril (Zestril 20 Mg) 20 mg PO DAILY [facility] Stop: 08/27/19 13:59 Last Admin: 07/29/19 09:16 Dose: 20 mg Metformin HCl (Glucophage 500 Mg) 1,250 mg PO BIDWM [facility] Stop: 08/27/19 16:59 Last Admin: 07/29/19 07:28 Dose: 1,250 mg Multivitamins/Minerals (Ocuvite Tablet) 1 tab PO BID [facility] Stop: 08/27/19 21:59 Last Admin: 07/29/19 09:16 Dose: 1 tab Oxybutynin Chloride (Ditropan Xl 5 Mg) 5 mg PO DAILY [facility] Stop: 08/27/19 13:59 Last Admin: 07/29/19 09:15 Dose: 5 mg Pantoprazole Sodium (Protonix 40mg Tablet) 40 mg PO BIDAC [facility] Stop: 08/27/19 16:29 Last Admin: 07/29/19 07:28 Dose: 40 mg Paroxetine HCl (Paxil 20 Mg) 10 mg PO DAILY [facility] Stop: 08/27/19 13:59 Last Admin: 07/29/19 09:16 Dose: 10 mg Potassium Chloride (Klor Con 10 Meq) 10 meq PO BID [facility] Stop: 08/27/19 13:59 Last Admin: 07/29/19 09:16 Dose: 10 meq Simvastatin (Zocor 10mg) 10 mg PO HS [facility] Stop: 08/27/19 21:59 Last Admin: 07/28/19 21:28 Dose: 10 mg Tamsulosin HCl (Flomax 0.4 Mg) 0.4 mg PO DAILY [facility] Stop: 08/27/19 13:59 Last Admin: 07/29/19 09:17 Dose: 0.4 mg Vitamin E (Vitamin E 400 Unit Softgel) 400 u PO BID [facility] Stop: 08/27/19 21:59 Last Admin: 07/29/19 09:17 Dose: 400 u Intake & Output 07/29/19 07/30/19 11:59 11:59 Intake Total 1978 Output Total 4000 Balance -2021 Orders 07/28/19 13:20 Admission Status Change [Change to Full Admit] ROUTINE 07/28/19 13:40 Acetaminophen 500 mg [Tylenol Extra Strength 500 mg] 500 - 1,000 mg PO Q6HPRN PRN 07/28/19 14:00 Amlodipine Besylate 5 mg [Norvasc 5 mg] 2.5 mg PO DAILY Aspirin EC 81 mg [Ecotrin 81 mg] 81 mg PO DAILY Carvedilol 6.25 mg [Coreg 6.25 MG] 6.25 mg PO BID Clopidogrel Bisulfate 75 mg [PLAVIX 75 MG Tablet] 75 mg PO DAILY Ferrous Sulfate 325 mg [Feosol 325 mg] 325 mg PO DAILY Folic Acid 1 mg [Folate 1 mg] 1 mg PO DAILY Hydrochlorothiazide 25 mg [hydroDIURIL 25 MG] 25 mg PO DAILY Isosorbide Mononitrate 30 mg [Imdur 30 MG] 30 mg PO DAILY Lisinopril 20 mg [Zestril 20 MG] 20 mg PO DAILY Oxybutynin Chloride Xl 5 mg [Ditropan XL 5 MG] 5 mg PO DAILY Paroxetine HCl 20 mg [Paxil 20 MG] 10 mg PO DAILY Potassium Chloride 10 Meq Tab* [Klor Con 10 MEQ] 10 meq PO BID Tamsulosin HCl 0.4 mg [Flomax 0.4 MG] 0.4 mg PO DAILY 07/28/19 16:30 PANTOPRAZOLE 40 mg Tablet [Protonix 40MG Tablet] 40 mg PO BIDAC 07/28/19 17:00 Glipizide 5 mg [Glucotrol 5 MG] 12.5 mg PO BIDWM Metformin HCl 500 mg [Glucophage 500 MG] 1,250 mg PO BIDWM 07/28/19 22:00 Beta-Carotene(A) W-C & E/Min [Ocuvite Tablet] 1 tab PO BID Simvastatin 10 mg [Zocor 10MG] 10 mg PO HS Vitamin E 400 Units [Vitamin E 400 UNIT SOFTGEL] 400 u PO BID Lab Tests 07/29/19 11:10 Hemoglobin A1c 7.09 H Microbiology 07/27/19 21:24 Blood Blood Culture - Preliminary NO GROWTH TO DATE 07/27/19 21:24 Blood Blood Culture - Preliminary NO GROWTH TO DATE 07/27/19 21:25 Clean Catch Midstream Urine Culture - Final NO GROWTH (2) Dizziness Current Visit: Yes Status: Acute Code(s): R42 - DIZZINESS AND GIDDINESS (3) Near syncope Current Visit: Yes Status: Acute (4) Hypertension Current Visit: No Status: Chronic Qualifiers: Code(s): I10 - ESSENTIAL (PRIMARY) HYPERTENSION (5) Dizziness Current Visit: No Status: Resolved Code(s): R42 - DIZZINESS AND GIDDINESS
[2019-07-29] MEDS: IMODIUM 2 MG PO PRN ×2 (12:31→21:50)
[2019-07-29] MEDS: Zocor 10MG PO SCH (21:50)
[2019-07-29] MEDS: ROCEPHIN 1 Gm-D5w 50 ml Bag** 1 G/50 ML IVPB IV SCH (21:50)
[2019-07-29] MEDS: NovoLOG Insulin SQ PRN (21:51)
[2019-07-29] MEDS: TYLENOL 325 MG PO PRN (21:59)
[2019-07-30] MEDS: Protonix 40MG Tablet PO SCH ×2 (06:14→16:51)
[2019-07-30] MEDS: Glucotrol 5 MG PO SCH ×2 (07:59→16:50)
[2019-07-30] MEDS: Flomax 0.4 MG PO SCH (08:01)
[2019-07-30] MEDS: Ditropan XL 5 MG PO SCH (08:01)
[2019-07-30] MEDS: PLAVIX 75 MG Tablet PO SCH (08:01)
[2019-07-30] MEDS: Paxil 20 MG PO SCH (08:02)
[2019-07-30] MEDS: Klor Con 10 MEQ PO SCH ×2 (08:02→20:51)
[2019-07-30] MEDS: hydroDIURIL 25 MG PO SCH (08:04)
[2019-07-30] MEDS: Zestril 20 MG PO SCH (08:04)
[2019-07-30] MEDS: Ocuvite Tablet PO SCH ×2 (08:04→20:51)
[2019-07-30] MEDS: ECOTRIN 81 MG PO SCH (08:05)
[2019-07-30] MEDS: Imdur 30 MG PO SCH (08:05)
[2019-07-30] MEDS: FOLATE 1 MG PO SCH (08:06)
[2019-07-30] MEDS: NORVASC 5 MG PO SCH (08:06)
[2019-07-30] MEDS: Coreg 6.25 MG PO SCH ×2 (08:06→20:52)
[2019-07-30] MEDS: FEOSOL 325 MG PO SCH (08:07)
[2019-07-30] MEDS: Vitamin E 400 UNIT SOFTGEL PO SCH ×2 (08:07→20:52)
[2019-07-30] MEDS: NovoLOG Insulin SQ PRN ×3 (12:29→20:57)
--- NOTE | 2019-07-30 12:57 | PCM.NOTE ---
Date and Time: 07/30/19 1255 Subjective Assessment: doing ok - Review of Systems Constitutional: No Fever, No Chills Eyes: No Symptoms Ears, Nose, & Throat: No Symptoms Respiratory: No Cough, No Short Of Breath Cardiac: No Chest Pain, No Edema, No Syncope Abdominal/Gastrointestinal: No Abdominal Pain, No Nausea, No Vomiting, No Diarrhea Genitourinary Symptoms: No Dysuria Musculoskeletal: No Back Pain, No Neck Pain Skin: No Rash Neurological: No Dizziness, No Focal Weakness, No Sensory Changes Psychological: No Symptoms Endocrine: No Symptoms Hematologic/Lymphatic: No Symptoms Immunological/Allergic: No Symptoms Objective Exam General Appearance: no apparent distress, alert Neurologic Exam: alert, oriented x 3, cooperative, normal mood/affect, nml cerebellar function, sensation nml, No motor deficits Skin Exam: normal color, warm, dry Eye Exam: PERRL, EOMI, eyes nml inspection Ears, Nose, Throat Exam: normal ENT inspection, pharynx normal, moist mucous membranes Neck Exam: normal inspection, non-tender, supple, full range of motion Respiratory Exam: normal breath sounds, lungs clear, No respiratory distress Cardiovascular Exam: regular rate/rhythm, normal heart sounds Gastrointestinal/Abdomen Exam: soft, No tenderness, No mass Extremity Exam: normal inspection, normal range of motion Back Exam: normal inspection, normal range of motion, No CVA tenderness, No vertebral tenderness Male Genitalia Exam: deferred Rectal Exam: deferred OBJECTIVE DATA Vital Signs: Vital Signs - 24 hr Temp Pulse Resp BP Pulse Ox 07/30/19 12:00 98.1 F 64 18 104/51 94 L 07/30/19 07:45 98.5 F 66 18 128/72 97 07/30/19 07:36 99 07/30/19 04:00 98.0 F 59 L 20 120/68 98 07/30/19 00:00 97.4 F 61 24 122/56 95 07/29/19 20:19 96 07/29/19 20:00 97.8 F 70 18 147/73 97 07/29/19 15:54 97.9 F 69 18 106/53 96 Pain Assessment - Last Documented Pain Intensity 0 Pain Scale Used 0-10 Pain Scale,FLACC Intake and Output: Intake & Output 07/28/19 07/29/19 07/30/19 07/31/19 11:59 11:59 11:59 11:59 Intake Total 1369 1977 1559 Output Total 2009 - 156 Weight 80 kg Lab Results: Accuchecks Date 07/30/19 Date 07/30/19 Date 07/29/19 Date 07/29/19 Time 11:30 Time 07:30 Time 22:00 Time 17:40 Accucheck Value: 270 Accucheck Value: 192 Accucheck Value: 225 Accucheck Value: 148 Multi-Disciplinary Progress Notes: Multi-Disciplinary Progress Notes 07/30/19 11:05 Case Management Note by Ekta Tenorio PATIENT REPORTS HE STILL FEELS WEAKER THAN HIS BASELINE. NO CHANGE IN DC PLANS AT THIS TIME Initialized on 07/30/19 11:05 - END OF NOTE Assessment/Plan (1) Hypotension due to drugs Current Visit: Yes Status: Acute (2) Dizziness Current Visit: Yes Status: Resolved Code(s): R42 - DIZZINESS AND GIDDINESS (3) Near syncope Current Visit: Yes Status: Resolved (4) Hypertension Current Visit: Yes Status: Chronic Qualifiers: Hypertension type: essential hypertension Code(s): I10 - ESSENTIAL (PRIMARY) HYPERTENSION (5) Dizziness Current Visit: No Status: Resolved Code(s): R42 - DIZZINESS AND GIDDINESS (6) Type 2 diabetes mellitus Current Visit: Yes Status: Acute Qualifiers: Diabetes mellitus long term care administrator insulin use: unspecified long term care administrator insulin use status Diabetes mellitus complication status: with diabetic arthropathy Diabetes mellitus complication detail: with neuropathic arthropathy Qualified 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
[2019-07-30] MEDS: Zocor 10MG PO SCH (20:51)
[2019-07-30] MEDS: ROCEPHIN 1 Gm-D5w 50 ml Bag** 1 G/50 ML IVPB IV SCH (21:01)
[2019-07-31] MEDS: TYLENOL 325 MG PO PRN (01:07)
[2019-07-31] MEDS: Protonix 40MG Tablet PO SCH (06:19)
[2019-07-31 07:39] VITALS: BP 120/59; PULSE 62; O2SAT 93
[2019-07-31] MEDS: FOLATE 1 MG PO SCH (08:08)
[2019-07-31] MEDS: NORVASC 5 MG PO SCH (08:08)
[2019-07-31] MEDS: FEOSOL 325 MG PO SCH (08:09)
[2019-07-31] MEDS: Paxil 20 MG PO SCH (08:09)
[2019-07-31] MEDS: Klor Con 10 MEQ PO SCH (08:09)
[2019-07-31] MEDS: Ocuvite Tablet PO SCH (08:09)
[2019-07-31] MEDS: Glucotrol 5 MG PO SCH (08:09)
[2019-07-31] MEDS: PLAVIX 75 MG Tablet PO SCH (08:10)
[2019-07-31] MEDS: ECOTRIN 81 MG PO SCH (08:10)
[2019-07-31] MEDS: hydroDIURIL 25 MG PO SCH (08:10)
[2019-07-31] MEDS: Ditropan XL 5 MG PO SCH (08:10)
[2019-07-31] MEDS: Zestril 20 MG PO SCH (08:10)
[2019-07-31] MEDS: Imdur 30 MG PO SCH (08:10)
[2019-07-31] MEDS: Flomax 0.4 MG PO SCH (08:10)
[2019-07-31] MEDS: Coreg 6.25 MG PO SCH (08:10)
[2019-07-31] MEDS: Vitamin E 400 UNIT SOFTGEL PO SCH (08:10)
--- NOTE | 2019-07-31 09:07 | PCM.DS ---
Discharge Summary Date of Admission: 07/28/19 13:20 Admitting Physician: TIMOTHY PONCE Primary Care Provider: TIMOTHY PONCE Allergies Allergies No Known Drug Allergies Allergy (Verified 07/27/19 21:22) Hospital Summary - Hospital Course Hospital Course: Last Vital Signs Temp 98.3 F 07/31/19 07:38 Pulse 62 07/31/19 07:38 Resp 20 07/31/19 07:38 BP 120/59 07/31/19 07:38 Pulse Ox 93 L 07/31/19 07:38 Allergies No Known Drug Allergies Allergy (Verified 07/27/19 21:22) Active Medications Acetaminophen (Tylenol 325 Mg) 650 mg PO Q4H PRN PRN PRN Reason: PAIN AND/OR FEVER Stop: 08/26/19 23:27 Last Admin: 07/31/19 01:07 Dose: 650 mg Acetaminophen (Tylenol Extra Strength 500 Mg) 500 - 1,000 mg PO Q6HPRN PRN PRN Reason: PAIN AND/OR FEVER Stop: 08/27/19 13:39 Last Admin: 07/30/19 15:09 Dose: 1,000 mg Amlodipine Besylate (Norvasc 5 Mg) 2.5 mg PO DAILY [facility] Stop: 08/27/19 13:59 Last Admin: 07/31/19 08:08 Dose: 2.5 mg Aspirin (Ecotrin 81 Mg) 81 mg PO DAILY [facility] Stop: 08/27/19 13:59 Last Admin: 07/31/19 08:10 Dose: 81 mg Carvedilol (Coreg 6.25 Mg) 6.25 mg PO BID ART Stop: 08/27/19 13:59 Last Admin: 07/31/19 08:10 Dose: 6.25 mg Clopidogrel Bisulfate (Plavix 75 Mg Tablet) 75 mg PO DAILY [facility] Stop: 08/27/19 13:59 Last Admin: 07/31/19 08:10 Dose: 75 mg Ferrous Sulfate (Feosol 325 Mg) 325 mg PO DAILY [facility] Stop: 08/27/19 13:59 Last Admin: 07/31/19 08:09 Dose: 325 mg Folic Acid (Folate 1 Mg) 1 mg PO DAILY [facility] Stop: 08/27/19 13:59 Last Admin: 07/31/19 08:08 Dose: 1 mg Glipizide (Glucotrol 5 Mg) 12.5 mg PO BIDWM [facility] Stop: 08/27/19 16:59 Last Admin: 07/31/19 08:09 Dose: 12.5 mg Hydrochlorothiazide (Hydrodiuril 25 Mg) 25 mg PO DAILY [facility] Stop: 08/27/19 13:59 Last Admin: 07/31/19 08:10 Dose: 25 mg Ceftriaxone Sodium/Dextrose (Rocephin 1 Gm-D5w 50 Ml Bag) 1 g in 50 mls @ 100 mls/hr IV Q24H22 [facility] Stop: 08/27/19 21:59 Last Admin: 07/30/19 21:01 Dose: 100 mls/hr Insulin Aspart (Novolog Insulin) 0 unit SQ UD PRN PRN Reason: HYPERGLYCEMIA Stop: 08/26/19 23:27 Last Admin: 07/30/19 20:57 Dose: 2 unit Isosorbide Mononitrate (Imdur 30 Mg) 30 mg PO DAILY [facility] Stop: 08/27/19 13:59 Last Admin: 07/31/19 08:10 Dose: 30 mg Lisinopril (Zestril 20 Mg) 20 mg PO DAILY [facility] Stop: 08/27/19 13:59 Last Admin: 07/31/19 08:10 Dose: 20 mg Loperamide HCl (Imodium 2 Mg) 2 mg PO Q6H/PRN PRN PRN Reason: DIARRHEA Stop: 08/28/19 12:24 Last Admin: 07/29/19 21:50 Dose: 2 mg Multivitamins/Minerals (Ocuvite Tablet) 1 tab PO BID [facility] Stop: 08/27/19 21:59 Last Admin: 07/31/19 08:09 Dose: 1 tab Oxybutynin Chloride (Ditropan Xl 5 Mg) 5 mg PO DAILY [facility] Stop: 08/27/19 13:59 Last Admin: 07/31/19 08:10 Dose: 5 mg Pantoprazole Sodium (Protonix 40mg Tablet) 40 mg PO BIDAC [facility] Stop: 08/27/19 16:29 Last Admin: 07/31/19 06:19 Dose: 40 mg Paroxetine HCl (Paxil 20 Mg) 10 mg PO DAILY [facility] Stop: 08/27/19 13:59 Last Admin: 07/31/19 08:09 Dose: 10 mg Potassium Chloride (Klor Con 10 Meq) 10 meq PO BID ART Stop: 08/27/19 13:59 Last Admin: 07/31/19 08:09 Dose: 10 meq Simvastatin (Zocor 10mg) 10 mg PO HS ART Stop: 08/27/19 21:59 Last Admin: 07/30/19 20:51 Dose: 10 mg Tamsulosin HCl (Flomax 0.4 Mg) 0.4 mg PO DAILY ART Stop: 08/27/19 13:59 Last Admin: 07/31/19 08:10 Dose: 0.4 mg Vitamin E (Vitamin E 400 Unit Softgel) 400 u PO BID ART Stop: 08/27/19 21:59 Last Admin: 07/31/19 08:10 Dose: 400 u Intake & Output 07/30/19 07/31/19 11:59 11:59 Intake Total 1560 1650 Balance 1560 1650 Weight 80 kg Orders 07/30/19 15:05 PT Eval & Treat ( Order) ROUTINE - Vitals & Intake/Output Vital Signs: Vital Signs Temperature 98.3 F 07/31/19 07:38 Pulse Rate 62 07/31/19 07:38 Respiratory Rate 20 07/31/19 07:38 Blood Pressure 120/59 07/31/19 07:38 O2 Sat by Pulse Oximetry 93 L 07/31/19 07:38 Intake & Output: Intake & Output 07/28/19 07/29/19 07/30/19 07/31/19 11:59 11:59 11:59 11:59 Intake Total 1370 1977 1560 1650 Output Total 2009 3999 Balance - 1560 1650 Weight 80 kg 80 kg - Lab Result Diagrams: 07/27/19 21:24 07/27/19 21:24 Lab Results-Last 24 Hrs: Accuchecks Date 07/31/19 Date 07/30/19 Date 07/30/19 Date 07/30/19 Time 08:14 Time 22:00 Time 16:30 Time 11:30 Accucheck Value: 199 Accucheck Value: 229 Accucheck Value: 292 Accucheck Value: 270 Micro Results-Entire Visit: Microbiology 07/27/19 21:24 Blood Culture - Preliminary Blood NO GROWTH TO DATE 07/27/19 21:24 Blood Culture - Preliminary Blood NO GROWTH TO DATE 07/27/19 21:25 Urine Culture - Final Clean Catch Midstream NO GROWTH Accuchecks Date 07/31/19 Date 07/30/19 Date 07/30/19 Date 07/30/19 Time 08:14 Time 22:00 Time 16:30 Time 11:30 Accucheck Value: 199 Accucheck Value: 229 Accucheck Value: 292 Accucheck Value: 270 - Procedures and Test Procedures and Tests throughout Hospitalization: Therapy Orders & Screens 07/28/19 00:59 OT Screen per Nursing Assess Comment: Protocol Order Physician Instructions: Greater than 3 points order OT Admission Screening Reason For Exam: Triggered on Admission Diagnosis: Dizziness; Near Syncope Open Wound/Cellutlitis/Pressure Ulcers: No Acute Fx/ORIF/Change in wt bearing status: No Severe MUSCULOSKELETAL pain: No ADL Dysfunction: Yes Acute CVA w/Hemiparesis/Hemiplegia: No Decreased Functional Mobility/Strength: Yes Sprain/Strain: No Acute Post-op Mobility Dysfunction: No Total Points: 4 PT Screen per Nursing Assess Comment: Protocol Order Physician Instructions: Greater than 3 points order PT Admission Screenin Reason For Exam: Triggered on Admission Diagnosis: Dizziness; Near Syncope Open Wound/Cellutlitis/Pressure Ulcers: No Acute Fx/ORIF/Change in wt bearing status: No Severe MUSCULOSKELETAL pain: No ADL Dysfunction: Yes Acute CVA w/Hemiparesis/Hemiplegia: No Decreased Functional Mobility/Strength: Yes Sprain/Strain: No Acute Post-op Mobility Dysfunction: No Total Points: 4 07/28/19 04:40 Oxygen NASAL CANNULA 2 lpm Comment: Diagnosis: Dizziness; Near Syncope 07/30/19 15:05 PT Eval & Treat (MD Order) ROUTINE Reason for Eval:: ambulate pt Diagnosis: SYNCOPAL EPISODE, WEAKNESS Discharge Exam General Appearance: no apparent distress, alert Neurologic Exam: alert, oriented x 3, cooperative, normal mood/affect, nml cerebellar function, sensation nml, No motor deficits Eye Exam: PERRL, EOMI, eyes nml inspection Ears, Nose, Throat Exam: normal ENT inspection, pharynx normal, moist mucous membranes Neck Exam: normal inspection, non-tender, supple, full range of motion Respiratory Exam: normal breath sounds, lungs clear, No respiratory distress Cardiovascular Exam: regular rate/rhythm, normal heart sounds Gastrointestinal/Abdomen Exam: soft, No tenderness, No mass Male Genitalia Exam: deferred Rectal Exam: deferred Back Exam: normal inspection, normal range of motion, No CVA tenderness, No vertebral tenderness Extremity Exam: normal inspection, normal range of motion Skin Exam: normal color, warm, dry Final Diagnosis/Problem List - Final Discharge Diagnosis/Problem (1) Type 2 diabetes mellitus Current Visit: Yes Status: Acute (2) Hypertension Current Visit: Yes Status: Chronic Code(s): I10 - ESSENTIAL (PRIMARY) HYPERTENSION (3) Hypotension due to drugs Current Visit: Yes Status: Resolved (4) Dizziness Current Visit: Yes Status: Resolved Code(s): R42 - DIZZINESS AND GIDDINESS (5) Near syncope Current Visit: Yes Status: Resolved - Discharge Discharge Date: 07/31/19 Dis[facility]: [facility] Condition: Stable Prescriptions: No Action Aspirin [Aspir 81] 81 mg PO DAILY Isosorbide Mononitrate 30 mg [Imdur 30 MG] 30 mg PO DAILY Potassium Chloride 10 Meq Tab* [Klor Con 10 MEQ] 10 meq PO BID Pravastatin Sodium 10 mg [Pravachol 10 MG] 10 mg PO HS Glipizide/Metformin HCl [Glipizide-Metformin 5-500 mg] 2.5 tab PO BID Ferrous Sulfate 325 mg [Feosol 325 mg] 325 mg PO DAILY Carvedilol 6.25 mg [Coreg 6.25 MG] 6.25 mg PO BID Lisinopril/Hydrochlorothiazide [Lisinopril-Hctz 20-25 mg Tab] 1 each PO DAILY Clopidogrel Bisulfate 75 mg [PLAVIX 75 MG Tablet] 75 mg PO DAILY Tamsulosin HCl 0.4 mg [Flomax 0.4 MG] 0.4 mg PO DAILY Vitamin E 400 Units [Vitamin E 400 UNIT SOFTGEL] 400 unit PO BID Amlodipine Besylate 2.5 mg PO DAILY Oxybutynin Chloride [Oxybutynin Chloride ER] 5 mg PO DAILY PARoxetine HCl [Paroxetine HCl] 10 mg PO DAILY Omeprazole 40 mg PO BIDAC Folic Acid 800 mcg PO DAILY Vit C/E/Zn/Coppr/Lutein/Zeaxan [Preservision Areds 2 Softgel] 1 cap PO BID Acetaminophen 500 mg [Tylenol Extra Strength 500 mg] 500 - 1,000 mg PO Q6HPRN PRN PRN Reason: Pain And/Or Fever Follow up with: TIMOTHY PONCE MD [Primary Care Provider] - 1 Week
== END 2019-07-31 09:43 | disposition swing bed (61) | DRG 639 ==
LOC: ED 20:53 → INTOOBSV 23:24 → OBSVTOIN 23:24 → MED SURG 23:24 → OBSVTOIN 07-28 13:20
PROVIDERS: ADMIT General Practice; ATTEND General Practice
DX: E11.9 Type 2 diabetes mellitus without complications (principal); I95.2 Hypotension due to drugs; R53.1 Weakness; I10 Essential (primary) hypertension; R42 Dizziness and giddiness; R55 Syncope and collapse; Z79.01 Long term (current) use of anticoagulants; Z79.899 Other long term (current) drug therapy; Z86.73 Personal history of transient ischemic attack (TIA), and cerebral infarction without residual deficits
CPT/HCPCS: 36000; 36415; 51702; 70450; 71045; 80053; 81001; 82962; 83036; 83605; 84134; 84484; 85025; 85610; 85730; 87040; 87086; 87631; 87651; 93005; 93041; 94760; 94762; 96365; 99285; G0378; J0696; A9270-GY

== ENCOUNTER 2019-07-31 09:45 | Inpatient (IN) | payer MEDICARE ==
[2019-07-31] MEDS ORDERED: TYLENOL EXTRA STRENGTH 500 MG PO PRN (09:49)
[2019-07-31] MEDS ORDERED: Aplisol ID ONE (09:49)
[2019-07-31] MEDS ORDERED: IMODIUM 2 MG PO PRN (09:49)
[2019-07-31] MEDS: NovoLOG Insulin SQ PRN ×2 (12:03→22:00)
[2019-07-31] MEDS ORDERED: Voltaren GEL TOP PRN (12:52)
[2019-07-31] MEDS: Glucotrol 5 MG PO SCH (16:44)
[2019-07-31] MEDS: Protonix 40MG Tablet PO SCH (16:45)
[2019-07-31] MEDS: Colace 100 MG PO PRN (16:49)
[2019-07-31] MEDS: Coreg 6.25 MG PO SCH (21:55)
[2019-07-31] MEDS: TYLENOL 325 MG PO PRN (21:55)
[2019-07-31] MEDS: Zocor 10MG PO SCH (21:55)
[2019-07-31] MEDS: Vitamin E 400 UNIT SOFTGEL PO SCH (21:55)
[2019-07-31] MEDS: Ocuvite Tablet PO SCH (21:55)
[2019-07-31] MEDS: Klor Con 10 MEQ PO SCH (21:55)
[2019-07-31] MEDS ORDERED: ROCEPHIN 1 Gm-D5w 50 ml Bag** 1 G/50 ML IVPB IV SCH (22:00)
[2019-08-01] MEDS: Glucotrol 5 MG PO SCH ×2 (07:18→16:12)
[2019-08-01] MEDS: Protonix 40MG Tablet PO SCH ×2 (07:19→16:12)
[2019-08-01] MEDS: NovoLOG Insulin SQ PRN ×4 (07:27→21:12)
[2019-08-01] MEDS: NORVASC 5 MG PO SCH (09:16)
[2019-08-01] MEDS: Coreg 6.25 MG PO SCH ×2 (09:17→21:11)
[2019-08-01] MEDS: Zestril 20 MG PO SCH (09:17)
[2019-08-01] MEDS: ECOTRIN 81 MG PO SCH (09:17)
[2019-08-01] MEDS: Paxil 20 MG PO SCH (09:17)
[2019-08-01] MEDS: Imdur 30 MG PO SCH (09:17)
[2019-08-01] MEDS: PLAVIX 75 MG Tablet PO SCH (09:17)
[2019-08-01] MEDS: FOLATE 1 MG PO SCH (09:17)
[2019-08-01] MEDS: Flomax 0.4 MG PO SCH (09:18)
[2019-08-01] MEDS: Klor Con 10 MEQ PO SCH ×2 (09:18→21:11)
[2019-08-01] MEDS: Ocuvite Tablet PO SCH ×2 (09:18→21:10)
[2019-08-01] MEDS: hydroDIURIL 25 MG PO SCH (09:18)
[2019-08-01] MEDS: Ditropan XL 5 MG PO SCH (09:18)
[2019-08-01] MEDS: FEOSOL 325 MG PO SCH (09:21)
[2019-08-01] MEDS: Vitamin E 400 UNIT SOFTGEL PO SCH ×2 (09:21→21:11)
[2019-08-01] MEDS ORDERED: Aplisol ID SCH (10:00)
--- NOTE | 2019-08-01 12:57 | PCM.HP.ADD ---
Addendum to History & Physical - History & Physical Addendum Addendum to History & Physical: This certifies that the History & Physical in the electronic chart reflects the current health status of the patient. If there are changes in the H&P these changes/exceptions are listed as follows.
--- NOTE | 2019-08-01 12:59 | PCM.NOTE ---
Date and Time: 08/01/19 1257 Subjective Assessment: doing ok - Review of Systems Constitutional: No Fever, No Chills Eyes: No Symptoms Ears, Nose, & Throat: No Symptoms Respiratory: No Cough, No Short Of Breath Cardiac: No Chest Pain, No Edema, No Syncope Abdominal/Gastrointestinal: No Abdominal Pain, No Nausea, No Vomiting, No Diarrhea Genitourinary Symptoms: No Dysuria Musculoskeletal: No Back Pain, No Neck Pain Skin: No Rash Neurological: No Dizziness, No Focal Weakness, No Sensory Changes Psychological: No Symptoms Endocrine: No Symptoms Hematologic/Lymphatic: No Symptoms Immunological/Allergic: No Symptoms Objective Exam General Appearance: no apparent distress, alert Neurologic Exam: alert, oriented x 3, cooperative, normal mood/affect, nml cerebellar function, sensation nml, No motor deficits Skin Exam: normal color, warm, dry Eye Exam: PERRL, EOMI, eyes nml inspection Ears, Nose, Throat Exam: normal ENT inspection, pharynx normal, moist mucous membranes Neck Exam: normal inspection, non-tender, supple, full range of motion Respiratory Exam: normal breath sounds, lungs clear, No respiratory distress Cardiovascular Exam: regular rate/rhythm, normal heart sounds Gastrointestinal/Abdomen Exam: soft, No tenderness, No mass Extremity Exam: normal inspection, normal range of motion Back Exam: normal inspection, normal range of motion, No CVA tenderness, No vertebral tenderness Male Genitalia Exam: deferred Rectal Exam: deferred OBJECTIVE DATA Vital Signs: Vital Signs - 24 hr Temp Pulse Resp BP Pulse Ox 08/01/19 08:00 98.2 F 67 22 127/67 93 L 07/31/19 19:46 98.1 F 18 127/61 95 Pain Assessment - Last Documented Pain Intensity 2 Pain Scale Used 0-10 Pain Scale,FLACC Intake and Output: Intake & Output 07/30/19 07/31/19 08/01/19 08/02/19 11:59 11:59 11:59 11:59 Intake Total 720 Balance 720 Weight 80 kg Lab Results: Accuchecks Date 08/01/19 Date 08/01/19 Date 07/31/19 Date 07/31/19 Time 12:06 Time 07:31 Time 22:00 Time 16:12 Accucheck Value: 266 Accucheck Value: 240 Accucheck Value: 341 Accucheck Value: 146 Multi-Disciplinary Progress Notes: Multi-Disciplinary Progress Notes 08/01/19 09:36 Case Management Note by Ekta Tenorio S/Kelsie PATIENT THIS AM. PATIENT SIGNED SWINGBED PAPERWORK. HE PLANS TO CONTINUE TO REHAB HERE THEN RETURN HOME. HIS SISTER LIVES ACROSS THE ALLEY TO HELP. PATIENT ALSO OPEN TO HOME HEALTH CARE. PATIENT HAS REFERRAL LIST TO LOOK AT. WILL SET HOME HEALTH CARE UP CLOSER TO TIME OF DC. Initialized on 08/01/19 09:36 - END OF NOTE Assessment/Plan (1) Hip pain, bilateral Current Visit: Yes Status: Chronic Code(s): M25.551 - PAIN IN RIGHT HIP; M25.552 - PAIN IN LEFT HIP (2) Fall involving bed as cause of accidental injury in home as place of occurrence Current Visit: Yes Status: Acute Code(s): W06.XXXA - FALL FROM BED, INITIAL ENCOUNTER; Y92.009 - UNSP PLACE IN [facility] (3) Dizziness Current Visit: No Status: Resolved Code(s): R42 - DIZZINESS AND GIDDINESS (4) Hypotension due to drugs Current Visit: No Status: Resolved (5) Near syncope Current Visit: No Status: Resolved
[2019-08-01] MEDS: Colace 100 MG PO PRN (21:10)
[2019-08-01] MEDS: Zocor 10MG PO SCH (21:11)
--- NOTE | 2019-08-02 07:44 | PCM.NOTE ---
Date and Time: 08/02/19 0743 Subjective Assessment: doing better - Review of Systems Constitutional: No Fever, No Chills Eyes: No Symptoms Ears, Nose, & Throat: No Symptoms Respiratory: No Cough, No Short Of Breath Cardiac: No Chest Pain, No Edema, No Syncope Abdominal/Gastrointestinal: No Abdominal Pain, No Nausea, No Vomiting, No Diarrhea Genitourinary Symptoms: No Dysuria Musculoskeletal: No Back Pain, No Neck Pain Skin: No Rash Neurological: No Dizziness, No Focal Weakness, No Sensory Changes Psychological: No Symptoms Endocrine: No Symptoms Hematologic/Lymphatic: No Symptoms Immunological/Allergic: No Symptoms Objective Exam General Appearance: no apparent distress, alert Neurologic Exam: alert, oriented x 3, cooperative, normal mood/affect, nml cerebellar function, sensation nml, No motor deficits Skin Exam: normal color, warm, dry Eye Exam: PERRL, EOMI, eyes nml inspection Ears, Nose, Throat Exam: normal ENT inspection, pharynx normal, moist mucous membranes Neck Exam: normal inspection, non-tender, supple, full range of motion Respiratory Exam: normal breath sounds, lungs clear, No respiratory distress Cardiovascular Exam: regular rate/rhythm, normal heart sounds Gastrointestinal/Abdomen Exam: soft, No tenderness, No mass Extremity Exam: normal inspection, normal range of motion Back Exam: normal inspection, normal range of motion, No CVA tenderness, No vertebral tenderness Male Genitalia Exam: deferred Rectal Exam: deferred OBJECTIVE DATA Vital Signs: Vital Signs - 24 hr Temp Pulse Resp BP Pulse Ox 08/02/19 07:19 97.5 F 61 18 138/67 94 L 08/01/19 20:00 98.0 F 65 17 103/51 94 L 08/01/19 08:00 98.2 F 67 22 127/67 93 L Pain Assessment - Last Documented Pain Intensity 2 Pain Scale Used 0-10 Pain Scale,FLACC Intake and Output: Intake & Output 07/30/19 07/31/19 08/01/19 08/02/19 11:59 11:59 11:59 11:59 Intake Total 720 780 Balance 720 780 Weight 80 kg Lab Results: Accuchecks Date 08/01/19 Date 08/01/19 Time 17:05 Time 12:06 Accucheck Value: 322 Accucheck Value: 284 Accucheck Value: 266 Multi-Disciplinary Progress Notes: Multi-Disciplinary Progress Notes 08/01/19 09:36 Case Management Note by Ekta Tenorio S/W PATIENT THIS AM. PATIENT SIGNED SWINGBED PAPERWORK. HE PLANS TO CONTINUE TO REHAB HERE THEN RETURN HOME. HIS SISTER LIVES ACROSS THE ALLEY TO HELP. PATIENT ALSO OPEN TO HOME HEALTH CARE. PATIENT HAS REFERRAL LIST TO LOOK AT. WILL SET HOME HEALTH CARE UP CLOSER TO TIME OF DC. Initialized on 08/01/19 09:36 - END OF NOTE Assessment/Plan (1) Debilitated patient Current Visit: Yes Status: Acute Assessment & Plan: Chief Complaint Diagnosis DECONDITIONING R/T SYNCOPE Allergies Allergy/AdvReac Type Severity Reaction Status Date / Time No Known Drug Allergies Allergy Verified 07/27/19 21:22 Vital Signs (Last 24 hours) Temp Pulse Resp BP Pulse Ox 08/02/19 07:19 97.5 F 61 18 138/67 94 L 08/01/19 20:00 98.0 F 65 17 103/51 94 L 08/01/19 08:00 98.2 F 67 22 127/67 93 L Current Medications Generic Name Dose Route Start Last Admin Trade Name Freq PRN Reason Stop Dose Admin Acetaminophen 650 mg 07/31/19 09:49 07/31/19 21:55 Tylenol 325 Mg PO 08/26/19 23:27 650 mg Q4H PRN PRN Administration PAIN AND/OR FEVER Acetaminophen 500 - 1,000 mg 07/31/19 09:49 Tylenol Extra Strength 500 Mg PO 08/27/19 13:39 Q6HPRN PRN PAIN AND/OR FEVER Amlodipine Besylate 2.5 mg 08/01/19 10:00 08/01/19 09:16 Norvasc 5 Mg PO 08/31/19 09:59 2.5 mg DAILY ART Administration Aspirin 81 mg 08/01/19 10:00 08/01/19 09:17 Ecotrin 81 Mg PO 08/31/19 09:59 81 mg DAILY ART Administration Carvedilol 6.25 mg 07/31/19 22:00 08/01/19 21:11 Coreg 6.25 Mg PO 08/27/19 21:59 6.25 mg BID ART Administration Clopidogrel Bisulfate 75 mg 08/01/19 10:00 08/01/19 09:17 Plavix 75 Mg Tablet PO 08/31/19 09:59 75 mg DAILY ART Administration Diclofenac Sodium 2 gm 07/31/19 12:52 Voltaren Gel TOP 08/30/19 12:51 QIDPRN PRN PAIN Docusate Sodium 100 mg 07/31/19 16:18 08/01/19 21:10 Colace 100 Mg PO 08/30/19 16:17 100 mg BIDPRN PRN Administration CONSTIPATION Ferrous Sulfate 325 mg 08/01/19 10:00 08/01/19 09:21 Feosol 325 Mg PO 08/31/19 09:59 325 mg DAILY ART Administration Folic Acid 1 mg 08/01/19 10:00 08/01/19 09:17 Folate 1 Mg PO 08/31/19 09:59 1 mg DAILY ART Administration Glipizide 12.5 mg 07/31/19 17:00 08/01/19 16:12 Glucotrol 5 Mg PO 08/27/19 16:59 12.5 mg BIDWM ART Administration Hydrochlorothiazide 25 mg 08/01/19 10:00 08/01/19 09:18 Hydrodiuril 25 Mg PO 08/31/19 09:59 25 mg DAILY ART Administration Insulin Aspart 0 unit 07/31/19 09:49 08/01/19 21:12 Novolog Insulin SQ 08/26/19 23:27 6 unit UD PRN Administration HYPERGLYCEMIA Isosorbide Mononitrate 30 mg 08/01/19 10:00 08/01/19 09:17 Imdur 30 Mg PO 08/31/19 09:59 30 mg DAILY ART Administration Lisinopril 20 mg 08/01/19 10:00 08/01/19 09:17 Zestril 20 Mg PO 08/31/19 09:59 20 mg DAILY ART Administration Loperamide HCl 2 mg 07/31/19 09:49 Imodium 2 Mg PO 08/28/19 12:24 Q6H/PRN PRN DIARRHEA Multivitamins/Minerals 1 tab 07/31/19 22:00 08/01/19 21:10 Ocuvite Tablet PO 08/27/19 21:59 1 tab BID ART Administration Oxybutynin Chloride 5 mg 08/01/19 10:00 08/01/19 09:18 Ditropan Xl 5 Mg PO 08/31/19 09:59 5 mg DAILY ART Administration Pantoprazole Sodium 40 mg 07/31/19 16:30 08/01/19 16:12 Protonix 40mg Tablet PO 08/27/19 16:29 40 mg BIDAC ART Administration Paroxetine HCl 10 mg 08/01/19 10:00 08/01/19 09:17 Paxil 20 Mg PO 08/31/19 09:59 10 mg DAILY ART Administration Potassium Chloride 10 meq 07/31/19 22:00 08/01/19 21:11 Klor Con 10 Meq PO 08/27/19 21:59 10 meq BID ART Administration Simvastatin 10 mg 07/31/19 22:00 08/01/19 21:11 Zocor 10mg PO 08/27/19 21:59 10 mg HS ART Administration Tamsulosin HCl 0.4 mg 08/01/19 10:00 08/01/19 09:18 Flomax 0.4 Mg PO 08/31/19 09:59 0.4 mg DAILY ART Administration Tuberculin PPD 5 unit 08/12/19 10:00 Aplisol ID 08/12/19 10:01 DAILY ART Vitamin E 400 u 07/31/19 22:00 08/01/19 21:11 Vitamin E 400 Unit Softgel PO 08/27/19 21:59 400 u BID ART Administration Discontinued Medications Generic Name Dose Route Start Last Admin Trade Name Freq PRN Reason Stop Dose Admin Ceftriaxone Sodium/Dextrose 1 g in 50 mls @ 100 mls/hr 07/31/19 22:00 Rocephin 1 Gm-D5w 50 Ml Bag IV 08/27/19 21:59 Q24H22 ART Tuberculin PPD 5 unit 08/01/19 10:00 08/01/19 09:22 Aplisol ID 08/01/19 10:01 5 unit DAILY ART Administration Intake & Output (Last 24 hours) 07/30/19 07/31/19 08/01/19 08/02/19 11:59 11:59 11:59 11:59 Intake Total 720 780 Balance 720 780 Weight 80 kg Orders (Last 24 hours) Category Date Time Status Weight,Daily Q7D Care 08/07/19 05:00 Active BMP Q14D Lab 08/14/19 09:45 Ordered Amlodipine Besylate 5 mg [Norvasc 5 mg] Med 08/01/19 10:00 Active 2.5 mg PO DAILY Aspirin EC 81 mg [Ecotrin 81 mg] Med 08/01/19 10:00 Active 81 mg PO DAILY Clopidogrel Bisulfate 75 mg [PLAVIX 75 MG Tablet] Med 08/01/19 10:00 Active 75 mg PO DAILY Ferrous Sulfate 325 mg [Feosol 325 mg] Med 08/01/19 10:00 Active 325 mg PO DAILY Folic Acid 1 mg [Folate 1 mg] Med 08/01/19 10:00 Active 1 mg PO DAILY Hydrochlorothiazide 25 mg [hydroDIURIL 25 MG] Med 08/01/19 10:00 Active 25 mg PO DAILY Isosorbide Mononitrate 30 mg [Imdur 30 MG] Med 08/01/19 10:00 Active 30 mg PO DAILY Lisinopril 20 mg [Zestril 20 MG] Med 08/01/19 10:00 Active 20 mg PO DAILY Oxybutynin Chloride Xl 5 mg [Ditropan XL 5 MG] Med 08/01/19 10:00 Active 5 mg PO DAILY Paroxetine HCl 20 mg [Paxil 20 MG] Med 08/01/19 10:00 Active 10 mg PO DAILY Tamsulosin HCl 0.4 mg [Flomax 0.4 MG] Med 08/01/19 10:00 Active 0.4 mg PO DAILY Tuberculin,Purif.prot.deriv. [Aplisol] Med 08/01/19 10:00 Discontinued 5 unit ID DAILY Tuberculin,Purif.prot.deriv. [Aplisol] Med 08/12/19 10:00 Active 5 unit ID DAILY Patient Care Notes (Last 24 hours) 08/01/19 09:36 Case Management Note by Ekta Tenorio S/W PATIENT THIS AM. PATIENT SIGNED SWINGBED PAPERWORK. HE PLANS TO CONTINUE TO REHAB HERE THEN RETURN HOME. HIS SISTER LIVES ACROSS THE ALLEY TO HELP. PATIENT ALSO OPEN TO HOME HEALTH CARE. PATIENT HAS REFERRAL LIST TO LOOK AT. WILL SET HOME HEALTH CARE UP CLOSER TO TIME OF DC. Initialized on 08/01/19 09:36 - END OF NOTE Code(s): R53.81 - OTHER MALAISE (2) Hip pain, bilateral Current Visit: Yes Status: Chronic Code(s): M25.551 - PAIN IN RIGHT HIP; M25.552 - PAIN IN LEFT HIP (3) Fall involving bed as cause of accidental injury in home as place of occurrence Current Visit: Yes Status: Acute Code(s): W06.XXXA - FALL FROM BED, INITIAL ENCOUNTER; Y92.009 - UNSP PLACE IN UNSP NON-[facility] (PRIVATE[facility] RESIDENCE PL[facility] (4) Dizziness Current Visit: No Status: Resolved Code(s): R42 - DIZZINESS AND GIDDINESS (5) Hypotension due to drugs Current Visit: No Status: Resolved (6) Near syncope Current Visit: No Status: Resolved
[2019-08-02] MEDS: Glucotrol 5 MG PO SCH ×2 (08:22→17:15)
[2019-08-02] MEDS: Protonix 40MG Tablet PO SCH ×2 (08:23→17:15)
[2019-08-02] MEDS: FOLATE 1 MG PO SCH (09:28)
[2019-08-02] MEDS: Imdur 30 MG PO SCH (09:28)
[2019-08-02] MEDS: Flomax 0.4 MG PO SCH (09:28)
[2019-08-02] MEDS: FEOSOL 325 MG PO SCH (09:28)
[2019-08-02] MEDS: hydroDIURIL 25 MG PO SCH (09:28)
[2019-08-02] MEDS: ECOTRIN 81 MG PO SCH (09:28)
[2019-08-02] MEDS: Coreg 6.25 MG PO SCH ×2 (09:28→22:33)
[2019-08-02] MEDS: Ditropan XL 5 MG PO SCH (09:28)
[2019-08-02] MEDS: Klor Con 10 MEQ PO SCH ×2 (09:29→22:33)
[2019-08-02] MEDS: NORVASC 5 MG PO SCH (09:29)
[2019-08-02] MEDS: Ocuvite Tablet PO SCH ×2 (09:31→22:33)
[2019-08-02] MEDS: Paxil 20 MG PO SCH (09:31)
[2019-08-02] MEDS: Zestril 20 MG PO SCH (09:32)
[2019-08-02] MEDS: PLAVIX 75 MG Tablet PO SCH (09:32)
[2019-08-02] MEDS: Vitamin E 400 UNIT SOFTGEL PO SCH ×2 (09:32→22:34)
[2019-08-02] MEDS: NovoLOG Insulin SQ PRN ×2 (12:27→22:38)
[2019-08-02] MEDS: DULCOLAX 5 MG PO PRN (15:48)
[2019-08-02] MEDS: Colace 100 MG PO PRN (22:33)
[2019-08-02] MEDS: Zocor 10MG PO SCH (22:33)
[2019-08-03] MEDS: Glucotrol 5 MG PO SCH ×2 (08:29→16:56)
[2019-08-03] MEDS: Protonix 40MG Tablet PO SCH ×2 (08:29→16:56)
[2019-08-03] MEDS: Klor Con 10 MEQ PO SCH ×2 (10:10→22:40)
[2019-08-03] MEDS: NORVASC 5 MG PO SCH (10:10)
[2019-08-03] MEDS: Imdur 30 MG PO SCH (10:10)
[2019-08-03] MEDS: ECOTRIN 81 MG PO SCH (10:11)
[2019-08-03] MEDS: hydroDIURIL 25 MG PO SCH (10:11)
[2019-08-03] MEDS: Zestril 20 MG PO SCH (10:11)
[2019-08-03] MEDS: PLAVIX 75 MG Tablet PO SCH (10:11)
[2019-08-03] MEDS: Colace 100 MG PO PRN (10:11)
[2019-08-03] MEDS: FEOSOL 325 MG PO SCH (10:11)
[2019-08-03] MEDS: FOLATE 1 MG PO SCH (10:11)
[2019-08-03] MEDS: Coreg 6.25 MG PO SCH ×2 (10:11→22:40)
[2019-08-03] MEDS: Paxil 20 MG PO SCH (10:12)
[2019-08-03] MEDS: Ocuvite Tablet PO SCH ×2 (10:12→22:40)
[2019-08-03] MEDS: Ditropan XL 5 MG PO SCH (10:12)
[2019-08-03] MEDS: Vitamin E 400 UNIT SOFTGEL PO SCH ×2 (10:12→22:40)
[2019-08-03] MEDS: DULCOLAX 5 MG PO PRN (10:12)
[2019-08-03] MEDS: Flomax 0.4 MG PO SCH (10:12)
[2019-08-03] MEDS: NovoLOG Insulin SQ PRN ×3 (12:33→22:40)
[2019-08-03] MEDS: Zocor 10MG PO SCH (22:40)
[2019-08-04] MEDS: Protonix 40MG Tablet PO SCH ×2 (07:50→17:22)
[2019-08-04] MEDS: Klor Con 10 MEQ PO SCH ×2 (07:50→22:35)
[2019-08-04] MEDS: hydroDIURIL 25 MG PO SCH (07:50)
[2019-08-04] MEDS: Flomax 0.4 MG PO SCH (07:50)
[2019-08-04] MEDS: Paxil 20 MG PO SCH (07:50)
[2019-08-04] MEDS: Ditropan XL 5 MG PO SCH (07:50)
[2019-08-04] MEDS: Imdur 30 MG PO SCH (07:50)
[2019-08-04] MEDS: FOLATE 1 MG PO SCH (07:50)
[2019-08-04] MEDS: ECOTRIN 81 MG PO SCH (07:52)
[2019-08-04] MEDS: FEOSOL 325 MG PO SCH (07:52)
[2019-08-04] MEDS: NORVASC 5 MG PO SCH (07:52)
[2019-08-04] MEDS: PLAVIX 75 MG Tablet PO SCH (07:53)
[2019-08-04] MEDS: Coreg 6.25 MG PO SCH ×2 (07:53→22:35)
[2019-08-04] MEDS: Vitamin E 400 UNIT SOFTGEL PO SCH ×2 (07:53→22:36)
[2019-08-04] MEDS: Ocuvite Tablet PO SCH ×2 (07:53→22:36)
[2019-08-04] MEDS: Zestril 20 MG PO SCH (07:53)
[2019-08-04] MEDS: Glucotrol 5 MG PO SCH ×2 (07:59→17:22)
[2019-08-04] MEDS: NovoLOG Insulin SQ PRN ×3 (12:22→22:37)
[2019-08-04] MEDS: Zocor 10MG PO SCH (22:36)
[2019-08-05] MEDS: Protonix 40MG Tablet PO SCH ×2 (07:41→16:32)
[2019-08-05] MEDS: Glucotrol 5 MG PO SCH ×2 (07:41→16:32)
[2019-08-05] MEDS: NORVASC 5 MG PO SCH (09:03)
[2019-08-05] MEDS: Imdur 30 MG PO SCH (09:03)
[2019-08-05] MEDS: Ocuvite Tablet PO SCH ×2 (09:03→21:19)
[2019-08-05] MEDS: hydroDIURIL 25 MG PO SCH (09:03)
[2019-08-05] MEDS: Klor Con 10 MEQ PO SCH ×2 (09:03→21:20)
[2019-08-05] MEDS: ECOTRIN 81 MG PO SCH (09:03)
[2019-08-05] MEDS: PLAVIX 75 MG Tablet PO SCH (09:03)
[2019-08-05] MEDS: Ditropan XL 5 MG PO SCH (09:03)
[2019-08-05] MEDS: Zestril 20 MG PO SCH (09:04)
[2019-08-05] MEDS: Paxil 20 MG PO SCH (09:04)
[2019-08-05] MEDS: Flomax 0.4 MG PO SCH (09:04)
[2019-08-05] MEDS: FEOSOL 325 MG PO SCH (09:04)
[2019-08-05] MEDS: FOLATE 1 MG PO SCH (09:04)
[2019-08-05] MEDS: Coreg 6.25 MG PO SCH ×2 (09:04→21:19)
[2019-08-05] MEDS: Vitamin E 400 UNIT SOFTGEL PO SCH ×2 (09:05→21:19)
--- NOTE | 2019-08-05 09:12 | PCM.NOTE ---
Date and Time: 08/05/19910 Subjective Assessment: doing ok - Review of Systems Constitutional: No Fever, No Chills Eyes: No Symptoms Ears, Nose, & Throat: No Symptoms Respiratory: No Cough, No Short Of Breath Cardiac: No Chest Pain, No Edema, No Syncope Abdominal/Gastrointestinal: No Abdominal Pain, No Nausea, No Vomiting, No Diarrhea Genitourinary Symptoms: No Dysuria Musculoskeletal: No Back Pain, No Neck Pain Skin: No Rash Neurological: No Dizziness, No Focal Weakness, No Sensory Changes Psychological: No Symptoms Endocrine: No Symptoms Hematologic/Lymphatic: No Symptoms Immunological/Allergic: No Symptoms Objective Exam General Appearance: no apparent distress, alert Neurologic Exam: alert, oriented x 3, cooperative, normal mood/affect, nml cerebellar function, sensation nml, No motor deficits Skin Exam: normal color, warm, dry Eye Exam: PERRL, EOMI, eyes nml inspection Ears, Nose, Throat Exam: normal ENT inspection, pharynx normal, moist mucous membranes Neck Exam: normal inspection, non-tender, supple, full range of motion Respiratory Exam: normal breath sounds, lungs clear, No respiratory distress Cardiovascular Exam: regular rate/rhythm, normal heart sounds Gastrointestinal/Abdomen Exam: soft, No tenderness, No mass Extremity Exam: normal inspection, normal range of motion Back Exam: normal inspection, normal range of motion, No CVA tenderness, No vertebral tenderness Male Genitalia Exam: deferred Rectal Exam: deferred OBJECTIVE DATA Vital Signs: Vital Signs - 24 hr Temp Pulse Resp BP Pulse Ox 08/05/19 08:00 97.9 F 69 20 115/62 95 08/04/19 20:00 98.4 F 67 20 129/58 97 Pain Assessment - Last Documented Pain Intensity 0 Pain Scale Used [facility] Intake and Output: Intake & Output 08/02/19 08/03/19 08/04/19 08/05/19 11:59 11:59 11:59 11:59 Intake Total 780 660 660 980 Balance 780 660 660 980 Lab Results: Accuchecks Date 08/05/19 Date 08/04/19 Date 08/04/19 Date 08/04/19 Time 07:18 Time 22:00 Time 16:30 Time 11:30 Accucheck Value: 201 Accucheck Value: 280 Accucheck Value: 289 Accucheck Value: 344 Assessment/Plan (1) Debilitated patient Current Visit: Yes Status: Acute Code(s): R53.81 - OTHER MALAISE (2) Hip pain, bilateral Current Visit: Yes Status: Chronic Code(s): M25.551 - PAIN IN RIGHT HIP; M25.552 - PAIN IN LEFT HIP (3) Fall involving bed as cause of accidental injury in home as place of occurrence Current Visit: Yes Status: Acute Code(s): W06.XXXA - FALL FROM BED, INITIAL ENCOUNTER; Y92.009 - UNSP PLACE IN UNSP NON-[facility] (PRIVATE[facility] RESIDENCE PL[facility] (4) Dizziness Current Visit: No Status: Resolved Code(s): R42 - DIZZINESS AND GIDDINESS (5) Hypotension due to drugs Current Visit: No Status: Resolved (6) Near syncope Current Visit: No Status: Resolved
[2019-08-05] MEDS: NovoLOG Insulin SQ PRN ×2 (12:30→17:31)
[2019-08-05] MEDS: DULCOLAX 5 MG PO PRN (17:35)
[2019-08-05] MEDS: Zocor 10MG PO SCH (21:19)
[2019-08-06] MEDS: TYLENOL 325 MG PO PRN (06:29)
[2019-08-06] MEDS: Glucotrol 5 MG PO SCH ×2 (08:34→16:26)
[2019-08-06] MEDS: Imdur 30 MG PO SCH (08:35)
[2019-08-06] MEDS: Paxil 20 MG PO SCH (08:35)
[2019-08-06] MEDS: Ditropan XL 5 MG PO SCH (08:36)
[2019-08-06] MEDS: ECOTRIN 81 MG PO SCH (08:36)
[2019-08-06] MEDS: Klor Con 10 MEQ PO SCH ×2 (08:37→21:42)
[2019-08-06] MEDS: Protonix 40MG Tablet PO SCH ×2 (08:37→16:26)
[2019-08-06] MEDS: hydroDIURIL 25 MG PO SCH (08:37)
[2019-08-06] MEDS: Flomax 0.4 MG PO SCH (08:37)
[2019-08-06] MEDS: Ocuvite Tablet PO SCH ×2 (08:37→21:42)
[2019-08-06] MEDS: FEOSOL 325 MG PO SCH (08:38)
[2019-08-06] MEDS: FOLATE 1 MG PO SCH (08:38)
[2019-08-06] MEDS: Vitamin E 400 UNIT SOFTGEL PO SCH ×2 (08:38→21:42)
[2019-08-06] MEDS: Colace 100 MG PO PRN (08:38)
[2019-08-06] MEDS: NORVASC 5 MG PO SCH (08:39)
[2019-08-06] MEDS: PLAVIX 75 MG Tablet PO SCH (08:39)
[2019-08-06] MEDS: Zestril 20 MG PO SCH (08:40)
[2019-08-06] MEDS: Coreg 6.25 MG PO SCH ×2 (08:40→21:42)
[2019-08-06] MEDS: NovoLOG Insulin SQ PRN ×2 (11:22→21:42)
--- NOTE | 2019-08-06 13:22 | PCM.NOTE ---
Date and Time: 08/06/19 1321 Subjective Assessment: doing ok - Review of Systems Constitutional: No Fever, No Chills Eyes: No Symptoms Ears, Nose, & Throat: No Symptoms Respiratory: No Cough, No Short Of Breath Cardiac: No Chest Pain, No Edema, No Syncope Abdominal/Gastrointestinal: No Abdominal Pain, No Nausea, No Vomiting, No Diarrhea Genitourinary Symptoms: No Dysuria Musculoskeletal: No Back Pain, No Neck Pain Skin: No Rash Neurological: No Dizziness, No Focal Weakness, No Sensory Changes Psychological: No Symptoms Endocrine: No Symptoms Hematologic/Lymphatic: No Symptoms Immunological/Allergic: No Symptoms Objective Exam General Appearance: no apparent distress, alert Neurologic Exam: alert, oriented x 3, cooperative, normal mood/affect, nml cerebellar function, sensation nml, No motor deficits Skin Exam: normal color, warm, dry Eye Exam: PERRL, EOMI, eyes nml inspection Ears, Nose, Throat Exam: normal ENT inspection, pharynx normal, moist mucous membranes Neck Exam: normal inspection, non-tender, supple, full range of motion Respiratory Exam: normal breath sounds, lungs clear, No respiratory distress Cardiovascular Exam: regular rate/rhythm, normal heart sounds Gastrointestinal/Abdomen Exam: soft, No tenderness, No mass Extremity Exam: normal inspection, normal range of motion Back Exam: normal inspection, normal range of motion, No CVA tenderness, No vertebral tenderness Male Genitalia Exam: deferred Rectal Exam: deferred OBJECTIVE DATA Vital Signs: Vital Signs - 24 hr Temp Pulse Resp BP Pulse Ox 08/06/19 08:00 98.0 F 56 L 20 157/75 95 08/05/19 19:42 97.8 F 61 18 163/81 97 Pain Assessment - Last Documented Pain Intensity 0 Pain Scale Used 0-10 Pain Scale Intake and Output: Intake & Output 08/04/19 08/05/19 08/06/19 08/07/19 11:59 11:59 11:59 11:59 Intake Total 660 980 420 Balance 660 980 420 Lab Results: Accuchecks Date 08/06/19 Date 08/06/19 Date 08/05/19 Time 11:30 Time 07:30 Time 17:46 Accucheck Value: 283 Accucheck Value: 191 Accucheck Value: 177 Accucheck Value: 281 Multi-Disciplinary Progress Notes: Multi-Disciplinary Progress Notes 08/06/19 12:36 Case Management Note by Ekta Tenorio S/Kelsie PATIENT- PATIENT'S SISTER NO LONGER ABLE TO HELP AT THIS TIME D/T HER FALLING AND INJURING HERSELF. HE STILL PLANS TO RETURN HOME. HE IS HOPEFUL FOR SUNDAY BUT IS STILL HAVING DIFFICULTY GETTING UP OUT OF THE BED. PATIENT CHOSE A HOME HEALTH AGENCY. REFERRAL SENT TO [facility] AT THIS TIME AND FAX CONFIRMATION RECEIVED. Initialized on 08/06/19 12:36 - END OF NOTE Assessment/Plan (1) Debilitated patient Current Visit: Yes Status: Acute Code(s): R53.81 - OTHER MALAISE (2) Hip pain, bilateral Current Visit: Yes Status: Chronic Code(s): M25.551 - PAIN IN RIGHT HIP; M25.552 - PAIN IN LEFT HIP (3) Fall involving bed as cause of accidental injury in home as place of occurrence Current Visit: Yes Status: Acute Code(s): W06.XXXA - FALL FROM BED, INITIAL ENCOUNTER; Y92.009 - UNSP PLACE IN UNSP NON-[facility]IDENCE PLACE (4) Dizziness Current Visit: No Status: Resolved Code(s): R42 - DIZZINESS AND GIDDINESS (5) Hypotension due to drugs Current Visit: No Status: Resolved (6) Near syncope Current Visit: No Status: Resolved
[2019-08-06] MEDS ORDERED: Lantus Insulin SQ SCH ×2 (17:00)
[2019-08-06] MEDS: Zocor 10MG PO SCH (21:42)
[2019-08-07] MEDS: TYLENOL 325 MG PO PRN ×2 (03:57→21:51)
[2019-08-07] MEDS: Protonix 40MG Tablet PO SCH ×2 (08:12→17:32)
[2019-08-07] MEDS: Glucotrol 5 MG PO SCH ×2 (08:12→17:32)
[2019-08-07] MEDS: FEOSOL 325 MG PO SCH (10:55)
[2019-08-07] MEDS: Coreg 6.25 MG PO SCH ×2 (10:55→21:51)
[2019-08-07] MEDS: ECOTRIN 81 MG PO SCH (10:55)
[2019-08-07] MEDS: Ditropan XL 5 MG PO SCH (10:55)
[2019-08-07] MEDS: FOLATE 1 MG PO SCH (10:56)
[2019-08-07] MEDS: Imdur 30 MG PO SCH (10:56)
[2019-08-07] MEDS: Flomax 0.4 MG PO SCH (10:56)
[2019-08-07] MEDS: hydroDIURIL 25 MG PO SCH (10:56)
[2019-08-07] MEDS: Klor Con 10 MEQ PO SCH ×2 (10:57→21:51)
[2019-08-07] MEDS: Paxil 20 MG PO SCH (10:57)
[2019-08-07] MEDS: Vitamin E 400 UNIT SOFTGEL PO SCH ×2 (10:57→21:57)
[2019-08-07] MEDS: Ocuvite Tablet PO SCH ×2 (10:58→21:51)
[2019-08-07] MEDS: PLAVIX 75 MG Tablet PO SCH (10:58)
[2019-08-07] MEDS: NORVASC 5 MG PO SCH (10:58)
[2019-08-07] MEDS: Zestril 20 MG PO SCH (11:12)
[2019-08-07] MEDS: NovoLOG Insulin SQ PRN ×2 (12:04→17:34)
--- NOTE | 2019-08-07 12:05 | PCM.NOTE ---
Date and Time: 08/07/19 1203 Subjective Assessment: as above - Review of Systems Constitutional: No Fever, No Chills Eyes: No Symptoms Ears, Nose, & Throat: No Symptoms Respiratory: No Cough, No Short Of Breath Cardiac: No Chest Pain, No Edema, No Syncope Abdominal/Gastrointestinal: No Abdominal Pain, No Nausea, No Vomiting, No Diarrhea Genitourinary Symptoms: No Dysuria Musculoskeletal: No Back Pain, No Neck Pain Skin: No Rash Neurological: No Dizziness, No Focal Weakness, No Sensory Changes Psychological: No Symptoms Endocrine: No Symptoms Hematologic/Lymphatic: No Symptoms Immunological/Allergic: No Symptoms Objective Exam General Appearance: no apparent distress, alert Neurologic Exam: alert, oriented x 3, cooperative, normal mood/affect, nml cerebellar function, sensation nml, No motor deficits Skin Exam: normal color, warm, dry Eye Exam: PERRL, EOMI, eyes nml inspection Ears, Nose, Throat Exam: normal ENT inspection, pharynx normal, moist mucous membranes Neck Exam: normal inspection, non-tender, supple, full range of motion Respiratory Exam: normal breath sounds, lungs clear, No respiratory distress Cardiovascular Exam: regular rate/rhythm, normal heart sounds Gastrointestinal/Abdomen Exam: soft, No tenderness, No mass Extremity Exam: normal inspection, normal range of motion Back Exam: normal inspection, normal range of motion, No CVA tenderness, No vertebral tenderness Male Genitalia Exam: deferred Rectal Exam: deferred OBJECTIVE DATA Vital Signs: Vital Signs - 24 hr Temp Pulse Resp BP Pulse Ox 08/07/19 08:00 98.7 F 63 16 124/60 96 08/06/19 20:00 98.0 F 62 18 119/58 97 Pain Assessment - Last Documented Pain Intensity 0 Pain Scale Used 0-10 Pain Scale Intake and Output: Intake & Output 08/05/19 08/06/19 08/07/19 08/08/19 11:59 11:59 11:59 11:59 Intake Total 980 420 820 Balance 980 420 820 Weight 75.5 kg Lab Results: Accuchecks Date 08/07/19 Date 08/06/19 Time 07:30 Time 16:50 Accucheck Value: 155 Accucheck Value: 213 Accucheck Value: 201 Multi-Disciplinary Progress Notes: Multi-Disciplinary Progress Notes 08/06/19 13:40 Physical Therapy Note by Shannon Aguilar PT. REPORTS HE IS FEELING GOOD TODAY. IS CONCERNED ABOUT HIS SISTER WHO FELL YESTERDAY. REPORTS R KNEE PN IS MUCH DECREASED. PT. IS PERFORMING BED MOBILITY AND SIT TO STAND MOD I. OCCASIONALLY NEEDS V.C. TO PLACE HAND ON CHAIR OR MAT VS USING WALKER TO ASSIST W/ SIT TO STAND. PT. IS IMPROVING HIS DESCENT TO SITTING TO AVOID PLOPPING WELL. PT. IS AMBULATING 400' W/ ROLLER WALKER AND 2# CUFF WEIGHTS MOD I. OCCASIONALLY NEEDS V.C. TO STEP CLOSER TO WALKER AND TAKE A LARGER STRIDE. NO BALANCE ISSUES NOTED W/ TRANSFERS OR GAIT OF LATE. PT. IS PERFORMING 10 REPS OF LE EX'S W/ 2# CUFF WEIGHTS WITHOUT DIFFICULTY. PT. REPORTS HE HAS A ROLLATOR AT HOME NOW. NEEDS [facility] UPON D/ C. HAVE WORKED ON ASCENDING AND DESCENDING STEPS AND PT. CAN PERFORM W/ MIN ASSIST BUT NEEDS AT LEAST ONE HR. FRIEND, "BEVERLY" IS TO LOOK INTO HELP FROM HIS JEHOVAH'S WITNESS W/ THIS. WILL CONT. P.T. UNITL D/C. SHANNON AGUILAR PT Initialized on 08/06/19 13:40 - END OF NOTE 08/06/19 12:36 Case Management Note by Ekta Tenorio S/W PATIENT- PATIENT'S SISTER NO LONGER ABLE TO HELP AT THIS TIME D/T HER FALLING AND INJURING HERSELF. HE STILL PLANS TO RETURN HOME. HE IS HOPEFUL FOR SUNDAY BUT IS STILL HAVING DIFFICULTY GETTING UP OUT OF THE BED. PATIENT CHOSE A HOME HEALTH AGENCY. REFERRAL SENT TO [facility] AT THIS TIME AND FAX CONFIRMATION RECEIVED. Initialized on 08/06/19 12:36 - END OF NOTE Assessment/Plan (1) Debilitated patient Current Visit: Yes Status: Acute Code(s): R53.81 - OTHER MALAISE (2) Hip pain, bilateral Current Visit: Yes Status: Chronic Code(s): M25.551 - PAIN IN RIGHT HIP; M25.552 - PAIN IN LEFT HIP (3) Fall involving bed as cause of accidental injury in home as place of occurrence Current Visit: Yes Status: Acute Code(s): W06.XXXA - FALL FROM BED, INITIAL ENCOUNTER; Y92.009 - UNSP PLACE IN UNSP NON-[facility] (PRIVATE) RESIDENCE PLACE
[2019-08-07] MEDS: Januvia 50 MG PO SCH (13:09)
[2019-08-07] MEDS: Zocor 10MG PO SCH (21:51)
[2019-08-08] MEDS: Protonix 40MG Tablet PO SCH (08:15)
[2019-08-08] MEDS: Glucotrol 5 MG PO SCH (08:16)
[2019-08-08] MEDS: hydroDIURIL 25 MG PO SCH (09:13)
[2019-08-08] MEDS: FOLATE 1 MG PO SCH (09:13)
[2019-08-08] MEDS: FEOSOL 325 MG PO SCH (09:13)
[2019-08-08] MEDS: Coreg 6.25 MG PO SCH (09:13)
[2019-08-08] MEDS: Januvia 50 MG PO SCH (09:13)
[2019-08-08] MEDS: Flomax 0.4 MG PO SCH (09:13)
[2019-08-08] MEDS: Ditropan XL 5 MG PO SCH (09:13)
[2019-08-08] MEDS: ECOTRIN 81 MG PO SCH (09:13)
[2019-08-08] MEDS: NORVASC 5 MG PO SCH (09:14)
[2019-08-08] MEDS: Imdur 30 MG PO SCH (09:14)
[2019-08-08] MEDS: Klor Con 10 MEQ PO SCH (09:14)
[2019-08-08] MEDS: Paxil 20 MG PO SCH (09:15)
[2019-08-08] MEDS: PLAVIX 75 MG Tablet PO SCH (09:15)
[2019-08-08] MEDS: Ocuvite Tablet PO SCH (09:15)
[2019-08-08] MEDS: Vitamin E 400 UNIT SOFTGEL PO SCH (09:15)
[2019-08-08] MEDS: Zestril 20 MG PO SCH (09:15)
[2019-08-08 12:09] VITALS: BP 145/69; PULSE 60; O2SAT 97
[2019-08-08] MEDS: NovoLOG Insulin SQ PRN (12:38)
--- NOTE | 2019-08-08 12:57 | PCM.DS ---
Discharge Summary Date of Admission: 07/31/19 09:45 Admitting Physician: TIMOTHY PONCE Primary Care Provider: TIMOTHY PONCE Allergies Allergies No Known Drug Allergies Allergy (Verified 07/27/19 21:22) Hospital Summary - Hospital Course Hospital Course: Chief Complaint Diagnosis DECONDITIONING R/T SYNCOPE Allergies Allergy/AdvReac Type Severity Reaction Status Date / Time No Known Drug Allergies Allergy Verified 07/27/19 21:22 Vital Signs (Last 24 hours) Temp Pulse Resp BP Pulse Ox 08/08/19 12:09 97.5 F 60 16 145/69 97 08/08/19 07:04 97.5 F 62 20 143/74 96 08/07/19 20:00 97.8 F 72 18 142/62 96 Home Medications Medication Instructions Recorded Confirmed Last Taken Type Empagliflozin/Metformin HCl 1 each PO DAILY #30 tab.bp.24h 08/08/19 Unknown Rx [Synjardy Xr 25-1,000 mg Tablet] Omeprazole 40 mg PO DAILY #0 08/08/19 07/31/19 07/31/19 09:00 Rx 40mg Current Medications Generic Name Dose Route Start Last Admin Trade Name Freq PRN Reason Stop Dose Admin Acetaminophen 650 mg 07/31/19 09:49 08/07/19 21:51 Tylenol 325 Mg PO 08/26/19 23:27 650 mg Q4H PRN PRN Administration PAIN AND/OR FEVER Acetaminophen 500 - 1,000 mg 07/31/19 09:49 Tylenol Extra Strength 500 Mg PO 08/27/19 13:39 Q6HPRN PRN PAIN AND/OR FEVER Amlodipine Besylate 2.5 mg 08/01/19 10:00 08/08/19 09:14 Norvasc 5 Mg PO 08/31/19 09:59 2.5 mg DAILY ART Administration Aspirin 81 mg 08/01/19 10:00 08/08/19 09:13 Ecotrin 81 Mg PO 08/31/19 09:59 81 mg DAILY ART Administration Bisacodyl 5 mg 08/02/19 10:20 08/05/19 17:35 Dulcolax 5 Mg PO 09/01/19 10:19 5 mg QDP PRN Administration CONSTIPATION Carvedilol 6.25 mg 07/31/19 22:00 08/08/19 09:13 Coreg 6.25 Mg PO 08/27/19 21:59 6.25 mg BID ART Administration Clopidogrel Bisulfate 75 mg 08/01/19 10:00 08/08/19 09:15 Plavix 75 Mg Tablet PO 08/31/19 09:59 75 mg DAILY ART Administration Diclofenac Sodium 2 gm 07/31/19 12:52 Voltaren Gel TOP 08/30/19 12:51 QIDPRN PRN PAIN Docusate Sodium 100 mg 07/31/19 16:18 08/06/19 08:38 Colace 100 Mg PO 08/30/19 16:17 100 mg BIDPRN PRN Administration CONSTIPATION Ferrous Sulfate 325 mg 08/01/19 10:00 08/08/19 09:13 Feosol 325 Mg PO 08/31/19 09:59 325 mg DAILY ART Administration Folic Acid 1 mg 08/01/19 10:00 08/08/19 09:13 Folate 1 Mg PO 08/31/19 09:59 1 mg DAILY ART Administration Glipizide 12.5 mg 07/31/19 17:00 08/08/19 08:16 Glucotrol 5 Mg PO 08/27/19 16:59 12.5 mg BIDWM ART Administration Hydrochlorothiazide 25 mg 08/01/19 10:00 08/08/19 09:13 Hydrodiuril 25 Mg PO 08/31/19 09:59 25 mg DAILY ART Administration Insulin Aspart 0 unit 07/31/19 09:49 08/08/19 12:38 Novolog Insulin SQ 08/26/19 23:27 2 unit UD PRN Administration HYPERGLYCEMIA Isosorbide Mononitrate 30 mg 08/01/19 10:00 08/08/19 09:14 Imdur 30 Mg PO 08/31/19 09:59 30 mg DAILY ART Administration Lisinopril 20 mg 08/01/19 10:00 08/08/19 09:15 Zestril 20 Mg PO 08/31/19 09:59 20 mg DAILY ART Administration Loperamide HCl 2 mg 07/31/19 09:49 Imodium 2 Mg PO 08/28/19 12:24 Q6H/PRN PRN DIARRHEA Multivitamins/Minerals 1 tab 07/31/19 22:00 08/08/19 09:15 Ocuvite Tablet PO 08/27/19 21:59 1 tab BID ART Administration Oxybutynin Chloride 5 mg 08/01/19 10:00 08/08/19 09:13 Ditropan Xl 5 Mg PO 08/31/19 09:59 5 mg DAILY ART Administration Pantoprazole Sodium 40 mg 07/31/19 16:30 08/08/19 08:15 Protonix 40mg Tablet PO 08/27/19 16:29 40 mg BIDAC ART Administration Paroxetine HCl 10 mg 08/01/19 10:00 08/08/19 09:15 Paxil 20 Mg PO 08/31/19 09:59 10 mg DAILY ART Administration Potassium Chloride 10 meq 07/31/19 22:00 08/08/19 09:14 Klor Con 10 Meq PO 08/27/19 21:59 10 meq BID ART Administration Simvastatin 10 mg 07/31/19 22:00 08/07/19 21:51 Zocor 10mg PO 08/27/19 21:59 10 mg HS ART Administration Sitagliptin Phosphate 100 mg 08/07/19 12:30 08/08/19 09:13 Januvia 50 Mg PO 09/06/19 12:29 100 mg DAILY ATR Administration Tamsulosin HCl 0.4 mg 08/01/19 10:00 08/08/19 09:13 Flomax 0.4 Mg PO 08/31/19 09:59 0.4 mg DAILY ART Administration Tuberculin PPD 5 unit 08/12/19 10:00 Aplisol ID 08/12/19 10:01 DAILY ART Vitamin E 400 u 07/31/19 22:00 08/08/19 09:15 Vitamin E 400 Unit Softgel PO 08/27/19 21:59 400 u BID ATR Administration Discontinued Medications Generic Name Dose Route Start Last Admin Trade Name Freq PRN Reason Stop Dose Admin Ceftriaxone Sodium/Dextrose 1 g in 50 mls @ 100 mls/hr 07/31/19 22:00 Rocephin 1 Gm-D5w 50 Ml Bag IV 08/27/19 21:59 Q24H22 ART Insulin Glargine 15 unit 08/06/19 17:00 Lantus Insulin SQ 09/05/19 16:59 AMINSULIN ART Insulin Glargine 15 unit 08/06/19 17:00 08/06/19 16:27 Lantus Insulin SQ 09/05/19 16:59 15 unit 1700 ART Administration Tuberculin PPD 5 unit 08/01/19 10:00 08/01/19 09:22 Aplisol ID 08/01/19 10:01 5 unit DAILY ART Administration Intake & Output (Last 24 hours) 08/06/19 08/07/19 08/08/19 08/09/19 11:59 11:59 11:59 11:59 Intake Total 420 820 880 Balance 420 820 880 Weight 75.5 kg Orders (Last 24 hours) Category Date Time Status Miscellaneous Nursing Order ROUTINE Care 08/08/19 09:18 Active Discharge Routine Discharge 08/08/19 Ordered BMP Q14D Lab 08/14/19 09:45 Ordered Sitagliptin Phosphate 50 MG [Januvia 50 MG] Med 08/07/19 12:30 Active 100 mg PO DAILY Tuberculin,Purif.prot.deriv. [Aplisol] Med 08/12/19 10:00 Active 5 unit ID DAILY Patient Care Notes (Last 24 hours) 08/08/19 11:16 Case Management Note by Ekta Tenorio S/W PATIENT- HE HAS DONE WELL WITH REHAB AND FEELS CONFIDENT IN BEING ABLE TO CARE FOR HIMSELF AT HOME. HIS NEICE WILL BE PICKING HIM UP. HE HAS A WALKER AT HOME AND HAS A DIABETIC TESTING DEVICE AT HOME WELL. HOME [facility]ALTH CARE WILL START TOMORROW. THEY HAVE BEEN NOTIFIED OF DISCHARGE TODAY AND HAVE BEEN FAXED THE DC INSTRUCTIONS AND MED LIST. Initialized on 08/08/19 11:16 - END OF NOTE - Vitals & Intake/Output Vital Signs: Vital Signs Temperature 97.5 F 08/08/19 12:09 Pulse Rate 60 08/08/19 12:09 Respiratory Rate 16 08/08/19 12:09 Blood Pressure 145/69 08/08/19 12:09 O2 Sat by Pulse Oximetry 97 08/08/19 12:09 Intake & Output: Intake & Output 08/06/19 08/07/19 08/08/19 08/09/19 11:59 11:59 11:59 11:59 Intake Total 420 820 880 Balance 420 820 880 Weight 75.5 kg - Lab Lab Results-Last 24 Hrs: ecks Date 08/07/19 Time 16:30 Accucheck Value: 182 Accucheck Value: 197 Accucheck Value: 77 Micro Results-Entire Visit: uchecks 08/07/19 Time 16:30 Accucheck Value: 182 Accucheck Value: 197 Accucheck Value: 77 - Procedures and Test Procedures and Tests throughout Hospitalization: Therapy Orders & Screens 07/31/19 09:49 OT Screen per Nursing Assess ONCE Comment: Protocol Order Physician Instructions: Greater than 3 points order OT Admission Screening Reason For Exam: Triggered on Admission Diagnosis: Dizziness; Near Syncope Open Wound/Cellutlitis/Pressure Ulcers: No Acute Fx/ORIF/Change in wt bearing status: No Severe MUSCULOSKELETAL pain: No ADL Dysfunction: Yes Acute CVA w/Hemiparesis/Hemiplegia: No Decreased Functional Mobility/Strength: Yes Sprain/Strain: No Acute Post-op Mobility Dysfunction: No Total Points: 4 PT Eval & Treat (MD Order) ROUTINE Reason for Eval:: ambulate pt Diagnosis: SYNCOPAL EPISODE, WEAKNESS 07/31/19 10:51 OT Eval and Treat (MD Order) ROUTINE Comment: Consulting Provider: TIOMTHY PONCE Physician Instructions: Reason For Exam: strengthening Evaluate: Yes Treat: Yes Reason for Evaluation: strengthening Diagnosis: DECONDITIONING R/T SYNCOPE 07/31/19 11:59 PT Clarification Order ROUTINE Comment: Physician Instructions: Reason For Exam: PT Clarification: P.T. TO RX 5X/WK UNTIL D/C TO ADDRESS FUNCTIONAL MOBILITY AND GAIT TRAINING, THER EX, BALANCE ACTIVITIES, KNEE PN MG'T PRN (CP), WELL ENDURANCE ACTIVITIES TO MAXIMIZE FUNCTIONAL INDEPENDENCE FOR SAFE RETURN HOME. Discharge Exam General Appearance: no apparent distress, alert Neurologic Exam: alert, oriented x 3, cooperative, normal mood/affect, nml cerebellar function, sensation nml, No motor deficits Eye Exam: PERRL, EOMI, eyes nml inspection Ears, Nose, Throat Exam: normal ENT inspection, pharynx normal, moist mucous membranes Neck Exam: normal inspection, non-tender, supple, full range of motion Respiratory Exam: normal breath sounds, lungs clear, No respiratory distress Cardiovascular Exam: regular rate/rhythm, normal heart sounds Gastrointestinal/Abdomen Exam: soft, No tenderness, No mass Male Genitalia Exam: deferred Rectal Exam: deferred Back Exam: normal inspection, normal range of motion, No CVA tenderness, No vertebral tenderness Extremity Exam: normal inspection, normal range of motion Skin Exam: normal color, warm, dry Final Diagnosis/Problem List - Final Discharge Diagnosis/Problem (1) Debilitated patient Current Visit: Yes Status: Acute Code(s): R53.81 - OTHER MALAISE (2) Hip pain, bilateral Current Visit: Yes Status: Chronic Code(s): M25.551 - PAIN IN RIGHT HIP; M25.552 - PAIN IN LEFT HIP (3) Fall involving bed as cause of accidental injury in home as place of occurrence Current Visit: Yes Status: Acute Code(s): W06.XXXA - FALL FROM BED, INITIAL ENCOUNTER; Y92.009 - UNSP PLACE IN UNSP NON-INSTITUT (PRIVATE) RESIDENCE PLACE - Discharge Discharge Date: 08/08/19 Disposition: Home, Self-Care Condition: Stable Prescriptions: New Empagliflozin/Metformin HCl [Synjardy Xr 25-1,000 mg Tablet] 1 each PO DAILY #30 tab.bp.24h Continue Aspirin [Aspir 81] 81 mg PO DAILY Isosorbide Mononitrate 30 mg [Imdur 30 MG] 30 mg PO DAILY Potassium Chloride 10 Meq Tab* [Klor Con 10 MEQ] 10 meq PO BID Pravastatin Sodium 10 mg [Pravachol 10 MG] 10 mg PO HS Ferrous Sulfate 325 mg [Feosol 325 mg] 325 mg PO DAILY Carvedilol 6.25 mg [Coreg 6.25 MG] 6.25 mg PO BID Lisinopril/Hydrochlorothiazide [Lisinopril-Hctz 20-25 mg Tab] 1 each PO DAILY Clopidogrel Bisulfate 75 mg [PLAVIX 75 MG Tablet] 75 mg PO DAILY Tamsulosin HCl 0.4 mg [Flomax 0.4 MG] 0.4 mg PO DAILY Vitamin E 400 Units [Vitamin E 400 UNIT SOFTGEL] 400 unit PO BID Amlodipine Besylate 2.5 mg PO DAILY Oxybutynin Chloride [Oxybutynin Chloride ER] 5 mg PO DAILY PARoxetine HCl [Paroxetine HCl] 10 mg PO DAILY Folic Acid 800 mcg PO DAILY Vit C/E/Zn/Coppr/Lutein/Zeaxan [Preservision Areds 2 Softgel] 1 cap PO BID Acetaminophen 500 mg [Tylenol Extra Strength 500 mg] 500 - 1,000 mg PO Q6HPRN PRN PRN Reason: Pain And/Or Fever Changed Omeprazole 40 mg PO DAILY #0 Discontinued Glipizide/Metformin HCl [Glipizide-Metformin 5-500 mg] 12.5 mg PO BID Additional Instructions: TRAINING CONSULTANT YOUR NEW MEDICATION SYNJARDY AT DR. PONCE'S [place] OFFICE ON YOUR WAY HOME DR PONCE APPOINTMENT IN [place] TAKE YOUR DISCHARGE FOLDER ALONG WITH ALL OF YOUR MEDICATION BOTTLES WITH YOU TO YOUR FOLLOWUP APPOINTMENT WITH DR. PONCE. THEY WANT TO REVIEW ALL OF YOUR MEDICATIONS. [facility] WILL BE IN CONTACT. THEY PLAN TO SEE YOU ON SUNDAY. THEIR PHONE NUMBER IS [phone] Follow up with: TIMOTHY PONCE MD [Primary Care Provider] - 08/15/19 2:15 pm Forms: Discharge Instructions
[2019-08-12] MEDS ORDERED: Aplisol ID SCH (10:00)
== END 2019-08-08 12:46 | disposition home or self-care (01) | DRG 948 ==
LOC: MED SURG 09:45
PROVIDERS: ADMIT General Practice; ATTEND General Practice
DX: R53.81 Other malaise (principal); M25.551 Pain in right hip; W06.XXXA Fall from bed, initial encounter; Y92.003 Bedroom of unspecified non-institutional (private) residence as the place of occurrence of the external cause; Z79.01 Long term (current) use of anticoagulants; Z79.899 Other long term (current) drug therapy; E11.9 Type 2 diabetes mellitus without complications; I10 Essential (primary) hypertension; R42 Dizziness and giddiness; I95.2 Hypotension due to drugs
CPT/HCPCS: 82962; 97110-GP; A9270-GY

== ENCOUNTER 2020-02-21 17:44 | Emergency (ER) | payer MEDICARE ==
[2020-02-21] MEDS ORDERED: MORPHINE SULFATE 2 MG INJ IV ONE (17:52)
[2020-02-21] MEDS ORDERED: Zofran 4 MG/2 ML VIAL IV ONE (17:52)
[2020-02-21] MEDS ORDERED: Zofran 4 MG/2 ML VIAL ONE (18:05)
[2020-02-21] MEDS ORDERED: MORPHINE SULFATE 2 MG INJ ONE (18:06)
--- NOTE | 2020-02-21 18:16 | ERPHSYRPT ---
- History of Present Illness Time Seen by Provider: 02/21/20 17:48 Source: patient, EMS Exam Limitations: no limitations Patient Subjective Stated Complaint: fall Triage Nursing Assessment: pt to ED c/o fall from standing. pt was in bathroom getting ready to shave face and bent over and fell down. + blood thinners, no LCOC, A&Ox4. lives home alone, unable to stand after fall but has life alert button. denies back, neck, head pain and refused C collar per EMS. rates 5/10 at rest and 10/10 with movement. full ROM but hesitant to do so d/t pain. Physician History: 84 years old male presented in the ER via EMS with chief complaint of fall. Patient reports he was getting ready for shaving and bent over, could not ma intain his balance and fell backward on the floor. Did hit his head but denies any headache or neck pain. No loss of consciousness. He was not able to get up but had a life alert on and was awake on EMS arrival. He is complaining of moderate intensity sharp pain in right upper arm/shoulder which is aggravated with movements and partial relief with being still. Denies any back pain, no chest pain palpitations or shortness of breath before or after the fall. Denies any dizziness or lightheadedness. No visual disturbance before or after. No numbness tingling or weakness. No pain in lower extremities. No abdominal pain nausea or vomiting. Occurred: just prior to arrival Reason for Fall: lost balance, fell from standing pos Injuries/Pain Location: head, upper extremity Loss of Consciousness: no loss of consciousness Quality: sharpness Severity of Pain-Max: moderate Severity of Pain-Current: moderate Modifying Factors: Improves With: immobilization, movement Associated Symptoms (Fall): denies symptoms Allergies/Adverse Reactions: No Known Drug Allergies Allergy (Verified 02/21/20 17:56) Home Medications: Aspirin [Aspir 81] 81 mg PO DAILY 07/23/12 [History] Ferrous Sulfate 325 mg [Feosol 325 mg] 325 mg PO DAILY 09/21/12 [History] Isosorbide Mononitrate 30 mg [Imdur 30 MG] 30 mg PO DAILY 09/21/12 [History] Potassium Chloride 10 Meq Tab* [Klor Con 10 MEQ] 10 meq PO BID 09/21/12 [History] Pravastatin Sodium 10 mg [Pravachol 10 MG] 10 mg PO HS 09/21/12 [History] Carvedilol 6.25 mg [Coreg 6.25 MG] 6.25 mg PO BID 02/04/15 [History] Clopidogrel Bisulfate 75 mg [PLAVIX 75 MG Tablet] 75 mg PO DAILY 02/04/15 [History] Lisinopril/Hydrochlorothiazide [Lisinopril-Hctz 20-25 mg Tab] 1 each PO DAILY 02/04/15 [History] Tamsulosin HCl 0.4 mg [Flomax 0.4 MG] 0.4 mg PO DAILY 08/08/17 [History] Acetaminophen 500 mg [Tylenol Extra Strength 500 mg] 500 - 1,000 mg PO Q6HPRN PRN 07/28/19 [History] Amlodipine Besylate 2.5 mg PO DAILY 07/28/19 [History] Folic Acid 800 mcg PO DAILY 07/28/19 [History] Oxybutynin Chloride [Oxybutynin Chloride ER] 5 mg PO DAILY 07/28/19 [History] PARoxetine HCL [Paroxetine HCl] 10 mg PO DAILY 07/28/19 [History] Vit C/E/Zn/Coppr/Lutein/Zeaxan [Preservision Areds 2 Softgel] 1 cap PO BID 07/28/19 [History] Vitamin E 400 Units [Vitamin E 400 UNIT SOFTGEL] 400 unit PO BID 07/28/19 [History] Hx Tetanus, Diphtheria Vaccination/Date Given: Yes Hx Influenza Vaccination/Date Given: Yes Hx Pneumococcal Vaccination/Date Given: Yes Travel Risk - International Travel Have you traveled outside of the country in past 3 weeks: No - Coronavirus Screening Are you exhibiting any of the following symptoms?: No Close contact with a COVID-19 positive Pt in past 14-21 Days: No - Review of Systems Constitutional: No Symptoms Eyes: No Symptoms Ears, Nose, & Throat: No Symptoms Respiratory: No Symptoms Cardiac: No Symptoms Abdominal/Gastrointestinal: No Symptoms Genitourinary Symptoms: No Symptoms Musculoskeletal: Injury, Joint Pain Skin: No Symptoms Neurological: No Symptoms Psychological: No Symptoms Endocrine: No Symptoms Hematologic/Lymphatic: No Symptoms Immunological/Allergic: No Symptoms - Past Medical History Pertinent Past Medical History: Yes Neurological History: TIA ENT History: No Pertinent History Cardiac History: Hypertension Respiratory History: No Pertinent History Endocrine Medical History: Diabetes Type II Musculoskeletal History: Arthritis GI Medical History: GI Bleed History: No Pertinent History Psycho-Social History: No Pertinent History Male Reproductive Disorders: No Pertinent History - Past Surgical History Past Surgical History: Yes Cardiac: Cardiac Stent Gastrointestinal: Hernia Repair Musculoskeletal: Orthopedic Surgery Other Surgical History: Nasal surgery - Social History Smoking Status: Former smoker Exposure to second hand smoke: No Drug Use: none Patient Lives Alone: Yes Significant Family History: no pertinent family hx - Nursing Vital Signs Nursing Vital Signs: Initial Vital Signs Pulse Rate 60 02/21/20 18:10 Respiratory Rate 16 02/21/20 18:10 Blood Pressure 154/82 02/21/20 18:10 O2 Sat by Pulse Oximetry 99 02/21/20 18:10 Pain Scale Pain Intensity 5 - Dubois Coma Score Best Eye Response (Dubois): (4) open spontaneously Best Verbal Response (Dubois): (5) oriented Best Motor Response (José): (6) obeys commands José Total: 15 - Physical Exam General Appearance: no apparent distress, alert Head Injury: no evidence of injury, No Enrique's Sign, No contusions, No raccoon eyes Eye Exam: PERRL/EOMI, eyes nml inspection ENT Exam: airway nml, evidence of ENT injury Neck Exam: supple, trachea midline, full range of motion, normal alignment Respiratory/Chest Exam: normal breath sounds, respiratory distress, No chest tenderness Cardiovascular Exam: normal heart sounds, regular rate/rhythm Gastrointestinal Exam: soft, normal bowel sounds, No tenderness Back Exam: normal inspection, normal range of motion, No CVA tenderness Extremity Exam: normal inspection, bony point tenderness (Right shoulder/upper humerus with restricted range of motion at right shoulder.), pain with movement, No sensory deficit Neurologic Exam: alert, oriented x 3, cooperative, 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 nml as tested, normal mood/affect Skin Exam: normal color SpO2 Interpretation: normal SpO2: 99 O2 Delivery: Room Air - Course Nursing assessment & vital signs reviewed: Yes EKG Interpreted by Me: RATE (66), Left Howells Deviation, NORMAL INTERVALS, Q-wave (Anteroseptal), Non-specific ST Changes (No change from previous), Other (T waves) Ordered Tests: Active Orders 24 hr Category Date Time Status Sweetbread Trimmer STAT Care 02/21/20 18:04 Active EKG-ER Only STAT Care 02/21/20 17:50 Active IV Insertion STAT Care 02/21/20 17:50 Active CERVICAL SPINE WO CONTRAST [CT] Stat Exams 02/21/20 17:50 Taken CHEST 1 VIEW (PORTABLE) Stat Exams 02/21/20 17:51 Taken HEAD WITHOUT CONTRAST [CT] Stat Exams 02/21/20 17:50 Taken SHOULDER Stat Exams 02/21/20 19:15 Taken CBC W DIFF Stat Lab 02/21/20 18:22 Completed CMP Stat Lab 02/21/20 18:22 Completed MAG [MAGNESIUM] Stat Lab 02/21/20 18:22 Completed TROPONIN Q3H Lab 02/21/20 17:50 Completed TROPONIN Q3H Lab 02/21/20 18:00 Ordered TROPONIN Q3H Lab 02/22/20 00:00 Ordered TROPONIN Q3H Lab 02/22/20 03:00 Ordered TROPONIN Q3H Lab 02/22/20 06:00 Ordered Medication Summary Discontinued Medications Generic Name Dose Route Start Last Admin Trade Name Daniella PRN Reason Stop Dose Admin Morphine Sulfate 2 mg 02/21/20 17:52 02/21/20 18:07 Morphine Sulfate 2 Mg Inj IV 02/21/20 17:53 2 mg STAT ONE Administration Morphine Sulfate Confirm 02/21/20 18:06 Morphine Sulfate 2 Mg Inj Administered 02/21/20 18:07 Dose 2 mg .ROUTE .STK-MED ONE Ondansetron HCl 4 mg 02/21/20 17:52 02/21/20 18:07 Zofran 4 Mg/2 Ml Vial IV 02/21/20 17:53 4 mg STAT ONE Administration Ondansetron HCl Confirm 02/21/20 18:05 Zofran 4 Mg/2 Ml Vial Administered 02/21/20 18:06 Dose 4 mg .ROUTE .STK-MED ONE Lab/Rad Data: Laboratory Result Diagrams 02/21/20 18:22 02/21/20 18:22 Laboratory Results 02/21/20 02/21/20 02/21/20 Range/Units 18:22 18:22 18:22 WBC 5.5 (4.0-10.5) K/mm3 RBC 3.54 L (4.1-5.6) M/mm3 Hgb 10.1 L (12.5-18.0) gm/dl Hct 31.8 L (42-50) % MCV 89.8 (78-100) fl MCH 28.5 (26-32) pg MCHC 31.8 L (32-36) g/dl RDW 15.4 H (11.5-14.0) % Plt Count 254 (150-450) K/mm3 MPV 10.9 (7.5-11.0) fl Gran % 54.9 (36.0-66.0) % Eos # (Auto) 0.19 (0-0.5) Absolute Lymphs (auto) 1.61 (1.0-4.6) Absolute Monos (auto) 0.68 (0.0-1.3) Lymphocytes % 29.2 (24.0-44.0) % Monocytes % 12.3 H (0.0-12.0) % Eosinophils % 3.4 (0.00-5.0) % Basophils % 0.2 (0.0-0.4) % Absolute Granulocytes 3.02 (1.4-6.9) Basophils # 0.01 (0-0.4) Sodium 136 L (137-145) mmol/L Potassium 4.9 (3.5-5.1) mmol/L Chloride 102 (98-107) mmol/L Carbon Dioxide 27 (22-30) mmol/L Anion Gap 11.4 (5-15) MEQ/L BUN 22 H (9-20) mg/dL Creatinine 1.44 H (0.66-1.25) mg/dL Estimated GFR 49.6 ML/MIN Glucose 156 H (74-106) mg/dL Calcium 10.3 H (8.4-10.2) mg/dL Magnesium 1.7 (1.6-2.3) mg/dL Total Bilirubin 0.50 (0.2-1.3) mg/dL AST 22 (17-59) U/L ALT 15 (0-50) U/L Alkaline Phosphatase 83 (38-126) U/L Troponin I (0.000-0.034) ng/mL Serum Total Protein 6.8 (6.3-8.2) g/dL Albumin 4.0 (3.5-5.0) g/dL 02/21/20 Range/Units 17:50 WBC (4.0-10.5) K/mm3 RBC (4.1-5.6) M/mm3 Hgb (12.5-18.0) gm/dl Hct (42-50) % MCV (78-100) fl MCH (26-32) pg MCHC (32-36) g/dl RDW (11.5-14.0) % Plt Count (150-450) K/mm3 MPV (7.5-11.0) fl Gran % (36.0-66.0) % Eos # (Auto) (0-0.5) Absolute Lymphs (auto) (1.0-4.6) Absolute Monos (auto) (0.0-1.3) Lymphocytes % (24.0-44.0) % Monocytes % (0.0-12.0) % Eosinophils % (0.00-5.0) % Basophils % (0.0-0.4) % Absolute Granulocytes (1.4-6.9) Basophils # (0-0.4) Sodium (137-145) mmol/L Potassium (3.5-5.1) mmol/L Chloride (98-107) mmol/L Carbon Dioxide (22-30) mmol/L Anion Gap (5-15) MEQ/L BUN (9-20) mg/dL Creatinine (0.66-1.25) mg/dL Estimated GFR ML/MIN Glucose (74-106) mg/dL Calcium (8.4-10.2) mg/dL Magnesium (1.6-2.3) mg/dL Total Bilirubin (0.2-1.3) mg/dL AST (17-59) U/L ALT (0-50) U/L Alkaline Phosphatase (38-126) U/L Troponin I < 0.012 (0.000-0.034) ng/mL Serum Total Protein (6.3-8.2) g/dL Albumin (3.5-5.0) g/dL - Progress Progress: improved, pain not gone completely, re-examined Progress Note: 02/21/20 20:10 84 years old is evaluated for fall with injury to right shoulder and hand. Patient has nonfocal neuro exam throughout stay in the ER. Stable vitals. Not in any distress. He is given a small dose of morphine, on reevaluation pain is better but not completely improved. X-rays right shoulder showed questionable fracture right humeral head, placed in a sling and recommended outpatient Ortho follow-up. Official reading is pending. Has stable renal functions and electrolytes. EKG showed sinus rhythm with no new changes but what he has been compared with the previous EKG. Negative troponins. Chest x-ray negative for any acute cardiopulmonary findings. Patient is not in any distress. I believe patient has mechanical fall and has issue with balance, recommended using cane/walker all the time for ambulation and outpatient follow-up. Discussed signs symptoms of worsening needing return to ER which he seems understanding. Stable for discharge. Counseled pt/family regarding: lab results, diagnosis, need for follow-up, rad results - Departure Departure Disposition: Home Clinical Impression: Acute shoulder pain due to trauma Qualifiers: Laterality: right Qualified Code(s): M25.511 - Pain in right shoulder Fall Qualifiers: Encounter type: initial encounter Qualified Code(s): W19.XXXA - Unspecified fall, initial encounter Condition: Stable Critical Care Time: No Referrals: TIMOTHY PONCE MD [Primary Care Provider] - (2 days for reevaluation) PHU CARLOS NP [NON-STAFF PHY W/O PRIVILEGES] - (2 days for reevaluation) Instructions: Preventing Falls, Shoulder Fracture (DC) Additional Instructions: Take Tylenol as needed for pain. Follow-up with Ortho clinic/primary care for reevaluation. Return to ER for worsening. Use cane/walker all the time for ambulation to avoid fall.
[2020-02-21 18:30] LABS: Absolute Neutrophil Ct (ANC) 3.02 (1.4-6.9); BASOPHIL % 0.2 % (0.0-0.4); Basophil (Absolute #) 0.01 (0-0.4); Eosinophil % 3.4 % (0.00-5.0); Eosinophil (Absolute #) 0.19 (0-0.5); Hematocrit 31.8 % (42-50); Hemoglobin 10.1 gm/dl (12.5-18.0); Lymphocyte (Absolute #) 1.61 (1.0-4.6); Lymphocytes % 29.2 % (24.0-44.0); Mean Cell Volume 89.8 fl (78-100); Mean Corpuscular Hemoglobin 28.5 pg (26-32); Mean Corpuscular Hgb Concent. 31.8 g/dl (32-36); Mean Platelet Volume 10.9 fl (7.5-11.0); Monocyte (Absolute #) 0.68 (0.0-1.3); Monocytes % 12.3 % (0.0-12.0); Neutrophil % 54.9 % (36.0-66.0); Platelet Count 254 K/mm3 (150-450); Red Blood Count 3.54 M/mm3 (4.1-5.6); Red Cell Distribution Width 15.4 % (11.5-14.0); White Blood Count 5.5 K/mm3 (4.0-10.5)
[2020-02-21 18:43] LABS: ANION GAP 11.4 MEQ/L (5-15); BILIRUBIN,TOTAL 0.5 mg/dL (0.2-1.3); Calcium 10.3 mg/dL (8.4-10.2); Creatinine 1 1.44 mg/dL (0.66-1.25); Potassium 4.9 mmol/L (3.5-5.1); Total Protein 6.8 g/dL (6.3-8.2)
[2020-02-21 20:03] VITALS: BP 174/106; PULSE 62; O2SAT 99
--- NOTE | 2020-02-21 22:19 | XRAY ---
Indication: Pain following fall. Multiple contiguous axial images obtained through the head. Comparison: July 27, 2019. There remains age-appropriate global atrophy, mild periventricular degenerative micro-ischemia bilaterally, and left external capsule remote infarct. No acute intracranial hemorrhage, abnormal extra-axial fluid collection, or mass effect. Fourth ventricle is midline without hydrocephalus. Bony calvarium intact. Stable right ethmoid sinus mass/polyp. Remaining visualized paranasal sinuses and mastoid air cells are clear. Impression: 1. 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 2. Stable right ethmoid sinus mass/polyp. Comment: Preliminary interpretation was made by [facility]. No critical discrepancy.
--- NOTE | 2020-02-21 22:23 | XRAY ---
Indication: Pain following fall. Multiple contiguous axial images obtained through the cervical spine. Sagittal and coronal reformatted images obtained. Comparison: None. Axial images taken for acute fracture, suspicious bony lesions, or spinal canal stenosis. There is mild/moderate multilevel degenerative endplate spurring and bilateral degenerative facet hypertrophy. Additional atlantoaxial degenerative arthropathy. Sagittal and coronal reformatted images demonstrates minimal 2 mm C2 degenerative anterolisthesis. No acute compression fracture or jumped facet. Normal appearing craniocervical junction. Visualized noncontrasted soft tissues demonstrates moderate scattered carotid calcifications bilaterally. Lung apices demonstrates tiny right apical calcified granuloma. Impression: 1. Multilevel degenerative spondylosis including minimal grade 1 C2 spondylolisthesis. 2. Negative acute fracture. Comment: Preliminary interpretation was made by [facility]. No critical discrepancy.
--- NOTE | 2020-02-21 22:25 | XRAY ---
Indication: Status post fall. Comparison: July 27, 2019. Portable chest limited with right apex not completely excluded. Remaining visualized lungs and heart normal. Bony thorax intact with mild osteopenia and degenerative changes. Impression: Nonacute limited chest.
--- NOTE | 2020-02-21 22:27 | XRAY ---
Indication: Pain following fall. Comparison: None 3 view right shoulder demonstrates mild osteopenia and moderate AC degenerative arthropathy. No other bony, articular, or soft tissue abnormalities.
== END 2020-02-21 20:30 | disposition home or self-care (01) ==
LOC: ED 17:44
DX: M25.511 Pain in right shoulder (principal); W18.39XA Other fall on same level, initial encounter; Z79.899 Other long term (current) drug therapy; I10 Essential (primary) hypertension; E11.9 Type 2 diabetes mellitus without complications
CPT/HCPCS: 36000; 36415; 70450; 71045; 72125; 73030; 80053; 83735; 85025; 93005; 93041; 96374; 96375; 99284; J2270; J2405

== ENCOUNTER 2020-04-21 13:36 | Observation (INO) | payer MEDICARE ==
--- NOTE | 2020-04-21 13:39 | ERPHSYRPT ---
- History of Present Illness Time Seen by Provider: 04/21/20 13:39 Source: patient, EMS Exam Limitations: no limitations Physician History: This is an 85-year-old white male who has had diarrhea for 3 days and began vomiting today. Patient has been feeling weak. He got up today and fell forward. He has no injuries per his report. He denies any shortness of breath he denies and he denies chest pain. He has no specific abdominal pain. Severity: moderate Associated Symptoms: vomiting, weakness, other (Diarrhea), No shortness of breath Allergies/Adverse Reactions: No Known Drug Allergies Allergy (Verified 02/21/20 17:56) Home Medications: Aspirin [Aspir 81] 81 mg PO DAILY 07/23/12 [History] Isosorbide Mononitrate 30 mg [Imdur 30 MG] 30 mg PO DAILY 09/21/12 [History] Potassium Chloride 10 Meq Tab* [Klor Con 10 MEQ] 10 meq PO BID 09/21/12 [His tory] Pravastatin Sodium 10 mg [Pravachol 10 MG] 10 mg PO HS 09/21/12 [History] Carvedilol 6.25 mg [Coreg 6.25 MG] 6.25 mg PO BID 02/04/15 [History] Clopidogrel Bisulfate 75 mg [PLAVIX 75 MG Tablet] 75 mg PO DAILY 02/04/15 [History] Lisinopril/Hydrochlorothiazide [Lisinopril-Hctz 20-25 mg Tab] 1 each PO DAILY 02/04/15 [History] Tamsulosin HCl 0.4 mg [Flomax 0.4 MG] 0.4 mg PO DAILY 08/08/17 [History] Acetaminophen 500 mg [Tylenol Extra Strength 500 mg] 500 - 1,000 mg PO Q6 HPRN PRN 07/28/19 [History] Folic Acid 800 mcg PO DAILY 07/28/19 [History] Oxybutynin Chloride [Oxybutynin Chloride ER] 5 mg PO DAILY 07/28/19 [History] PARoxetine HCL [Paroxetine HCl] 10 mg PO DAILY 07/28/19 [History] Vit C/E/Zn/Coppr/Lutein/Zeaxan [Preservision Areds 2 Softgel] 1 cap PO BID 07/28/19 [History] Vitamin E 400 Units [Vitamin E 400 UNIT SOFTGEL] 400 unit PO BID 07/28/19 [History] Hx Tetanus, Diphtheria Vaccination/Date Given: Yes Hx Influenza Vaccination/Date Given: Yes Hx Pneumococcal Vaccination/Date Given: Yes Travel Risk - International Travel Have you traveled outside of the country in past 3 weeks: No - Coronavirus Screening Are you exhibiting any of the following symptoms?: No Close contact with a COVID-19 positive Pt in past 14-21 Days: No - Review of Systems Constitutional: Weakness Eyes: No Symptoms Ears, Nose, & Throat: No Symptoms Respiratory: No Symptoms Cardiac: No Symptoms Abdominal/Gastrointestinal: Nausea, Vomiting, Diarrhea Genitourinary Symptoms: No Symptoms Musculoskeletal: No Symptoms Skin: No Symptoms Neurological: No Symptoms Psychological: No Symptoms Endocrine: No Symptoms Hematologic/Lymphatic: No Symptoms Immunological/Allergic: No Symptoms All Other Systems: Reviewed and Negative - Past Medical History Pertinent Past Medical History: Yes Neurological History: TIA ENT History: No Pertinent History Cardiac History: Hypertension Respiratory History: No Pertinent History Endocrine Medical History: Diabetes Type II Musculoskeletal History: Arthritis GI Medical History: GI Bleed History: No Pertinent History Psycho-Social History: No Pertinent History Male Reproductive Disorders: No Pertinent History - Past Surgical History Past Surgical History: Yes Neuro Surgical History: No Pertinent History Cardiac: Cardiac Stent Gastrointestinal: Hernia Repair Musculoskeletal: Orthopedic Surgery Other Surgical History: Nasal surgery - Social History Smoking Status: Former smoker Exposure to second hand smoke: No Drug Use: none Patient Lives Alone: Yes Significant Family History: no pertinent family hx - Nursing Vital Signs Nursing Vital Signs: Initial Vital Signs Temperature 98.2 F 04/21/20 13:43 Pulse Rate 63 04/21/20 13:43 Respiratory Rate 18 04/21/20 13:43 Blood Pressure 108/58 04/21/20 13:43 O2 Sat by Pulse Oximetry 100 04/21/20 13:43 Pain Scale Pain Intensity 0 - Physical Exam General Appearance: mild distress, alert, anxiety Eye Exam: PERRL/EOMI, eyes nml inspection Ears, Nose, Throat Exam: normal ENT inspection, moist mucous membranes Neck Exam: normal inspection, non-tender, supple, full range of motion Respiratory Exam: normal breath sounds, lungs clear, airway intact, No chest tenderness, No respiratory distress Cardiovascular Exam: regular rate/rhythm, normal heart sounds, normal peripheral pulses Gastrointestinal/Abdomen Exam: soft, normal bowel sounds, No tenderness Rectal Exam: not done Back Exam: normal inspection, normal range of motion, No CVA tenderness, No vertebral tenderness Extremity Exam: normal inspection, normal range of motion, pelvis stable Neurologic Exam: alert, oriented x 3, cooperative, 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, normal mood/affect, nml cerebellar function, nml station & gait, sensation nml Skin Exam: normal color, warm, dry Lymphatic Exam: No adenopathy SpO2 Interpretation: normal O2 Delivery: Room Air - Course Nursing assessment & vital signs reviewed: Yes EKG Interpreted by Me: RATE ([id number]), Sinus Rhythm, NORMAL AXIS, Left [place] Deviation, NORMAL INTERVALS, NORMAL QRS, Other (There are no changes present on the comparison EKG 02/21/2020.) Ordered Tests: Active Orders 24 hr Category Date Time Status Manager Of Data STAT Care 04/21/20 14:23 Active EKG-ER Only STAT Care 04/21/20 14:22 Active IV Insertion STAT Care 04/21/20 14:22 Active Pulse Oximetry (ED) STAT Care 04/21/20 14:22 Active CBC W DIFF Stat Lab 04/21/20 14:40 Completed CMP Stat Lab 04/21/20 14:40 Completed MAGNESIUM Stat Lab 04/21/20 14:40 Completed NT PRO BNP Stat Lab 04/21/20 14:40 Completed TROPONIN Q3H Lab 04/21/20 14:40 Completed TROPONIN Q3H Lab 04/21/20 17:35 Completed TROPONIN Q3H Lab 04/21/20 20:30 Ordered TROPONIN Q3H Lab 04/21/20 23:30 Ordered TROPONIN Q3H Lab 04/22/20 02:30 Ordered UA W/RFX UR CULTURE Stat Lab 04/21/20 18:33 Completed Medication Summary Generic Name Dose Route Start Last Admin Trade Name Freq PRN Reason Stop Dose Admin Sodium Chloride 1,000 mls @ 100 mls/hr 04/21/20 19:15 04/21/20 19:11 Sodium Chloride 0.9% 1000 Ml IV 05/21/20 19:14 100 mls/hr .Q10H ART Administration Discontinued Medications Generic Name Dose Route Start Last Admin Trade Name Freq PRN Reason Stop Dose Admin Sodium Chloride 1,000 mls @ 999 mls/hr 04/21/20 14:22 04/21/20 15:47 Sodium Chloride 0.9% 1000 Ml IV 04/21/20 15:22 Infused .Q1H1M STA Infusion Sodium Chloride Confirm 04/21/20 14:35 Sodium Chloride 0.9% 1000 Ml Administered 04/21/20 14:36 Dose 1,000 mls @ ud .ROUTE .STK-MED ONE Ondansetron HCl 4 mg 04/21/20 14:24 04/21/20 14:40 Zofran 4 Mg/2 Ml Vial IV 04/21/20 14:25 4 mg STAT ONE Administration Ondansetron HCl Confirm 04/21/20 14:35 Zofran 4 Mg/2 Ml Vial Administered 04/21/20 14:36 Dose 4 mg .ROUTE .STK-MED ONE Lab/Rad Data: Laboratory Result Diagrams 04/21/20 14:40 04/21/20 14:40 Laboratory Results 04/21/20 04/21/20 04/21/20 Range/Units 18:33 17:35 14:40 WBC (4.0-10.5) K/mm3 RBC (4.1-5.6) M/mm3 Hgb (12.5-18.0) gm/dl Hct (42-50) % MCV (78-100) fl MCH (26-32) pg MCHC (32-36) g/dl RDW (11.5-14.0) % Plt Count (150-450) K/mm3 MPV (7.5-11.0) fl Gran % (36.0-66.0) % Eos # (Auto) (0-0.5) Absolute Lymphs (auto) (1.0-4.6) Absolute Monos (auto) (0.0-1.3) Lymphocytes % (24.0-44.0) % Monocytes % (0.0-12.0) % Eosinophils % (0.00-5.0) % Basophils % (0.0-0.4) % Absolute Granulocytes (1.4-6.9) Basophils # (0-0.4) Sodium (137-145) mmol/L Potassium (3.5-5.1) mmol/L Chloride (98-107) mmol/L Carbon Dioxide (22-30) mmol/L Anion Gap (5-15) MEQ/L BUN (9-20) mg/dL Creatinine (0.66-1.25) mg/dL Estimated GFR ML/MIN Glucose (74-106) mg/dL Calcium (8.4-10.2) mg/dL Magnesium (1.6-2.3) mg/dL Total Bilirubin (0.2-1.3) mg/dL AST (17-59) U/L ALT (0-50) U/L Alkaline Phosphatase (38-126) U/L Troponin I < 0.012 < 0.012 (0.000-0.034) ng/mL NT-Pro-B Natriuret Pep (0-1800) pg/mL Serum Total Protein (6.3-8.2) g/dL Albumin (3.5-5.0) g/dL Urine Color YELLOW (YELLOW) Urine Appearance CLEAR (CLEAR) Urine pH 5.0 (5-6) Ur Specific [place] 1.017 (1.005-1.025) Urine Protein NEGATIVE (Negative) Urine Ketones NEGATIVE (NEGATIVE) Urine Blood NEGATIVE (0-5) [place]/ul Urine Nitrite NEGATIVE (NEGATIVE) Urine Bilirubin NEGATIVE (NEGATIVE) Urine Urobilinogen NEGATIVE (0-1) mg/dL Ur Leukocyte Esterase NEGATIVE (NEGATIVE) Urine WBC (Auto) NONE (0-5) /HPF Urine RBC (Auto) NONE (0-2) /HPF U Hyaline Cast (Auto) 0-2 (0-2) /LPF U Epithel Cells (Auto) NONE (FEW) /HPF Urine Bacteria (Auto) NONE SEEN (NEGATIVE) /HPF Urine Mucus (Auto) SLIGHT (NEGATIVE) /HPF Urine Culture Reflexed NO (NO) Urine Glucose NEGATIVE (NEGATIVE) mg/dL 04/21/20 04/21/20 Range/Units 14:40 14:40 WBC 7.6 (4.0-10.5) K/mm3 RBC 3.33 L (4.1-5.6) M/mm3 Hgb 8.9 L (12.5-18.0) gm/dl Hct 29.2 L (42-50) % MCV 87.7 (78-100) fl MCH 26.7 (26-32) pg MCHC 30.5 L (32-36) g/dl RDW 15.4 H (11.5-14.0) % Plt Count 236 (150-450) K/mm3 MPV 10.6 (7.5-11.0) fl Gran % 80.4 H (36.0-66.0) % Eos # (Auto) 0.10 (0-0.5) Absolute Lymphs (auto) 0.85 L (1.0-4.6) Absolute Monos (auto) 0.53 (0.0-1.3) Lymphocytes % 11.2 L (24.0-44.0) % Monocytes % 7.0 (0.0-12.0) % Eosinophils % 1.3 (0.00-5.0) % Basophils % 0.1 (0.0-0.4) % Absolute Granulocytes 6.13 (1.4-6.9) Basophils # 0.01 (0-0.4) Sodium 137 (137-145) mmol/L Potassium 4.6 (3.5-5.1) mmol/L Chloride 106 (98-107) mmol/L Carbon Dioxide 22 (22-30) mmol/L Anion Gap 13.5 (5-15) MEQ/L BUN 24 H (9-20) mg/dL Creatinine 1.54 H (0.66-1.25) mg/dL Estimated GFR 45.8 ML/MIN Glucose 195 H (74-106) mg/dL Calcium 10.0 (8.4-10.2) mg/dL Magnesium 1.7 (1.6-2.3) mg/dL Total Bilirubin 0.40 (0.2-1.3) mg/dL AST 18 (17-59) U/L ALT 15 (0-50) U/L Alkaline Phosphatase 69 (38-126) U/L Troponin I (0.000-0.034) ng/mL NT-Pro-B Natriuret Pep 183 (0-1800) pg/mL Serum Total Protein 6.0 L (6.3-8.2) g/dL Albumin 3.5 (3.5-5.0) g/dL Urine Color (YELLOW) Urine Appearance (CLEAR) Urine pH (5-6) Ur Specific [place] (1.005-1.025) Urine Protein (Negative) Urine Ketones (NEGATIVE) Urine Blood (0-5) [place]/ul Urine Nitrite (NEGATIVE) Urine Bilirubin (NEGATIVE) Urine Urobilinogen (0-1) mg/dL Ur Leukocyte Esterase (NEGATIVE) Urine WBC (Auto) (0-5) /HPF Urine RBC (Auto) (0-2) /HPF U Hyaline Cast (Auto) (0-2) /LPF U Epithel Cells (Auto) (FEW) /HPF Urine Bacteria (Auto) (NEGATIVE) /HPF Urine Mucus (Auto) (NEGATIVE) /HPF Urine Culture Reflexed (NO) Urine Glucose (NEGATIVE) mg/dL - Progress Progress: improved, re-examined Progress Note: 04/21/20 19:31 Medical decision making: This patient still feels weak. He denies chest pain or shortness of breath. I did speak with Dr. Garrison, the patient's primary care physician. I reviewed the patient's laboratory data, condition, physical findings and x-ray result with him. The patient has new anemia. Patient has not noticed any active bleeding. We will place the patient in observation and provide the patient with intravenous fluids and repeat laboratory data as well as antiemetics. Dr. Garrison accepts the patient for placement into observation. Discussed with : Devan Will see patient in: hospital (observation) Counseled pt/family regarding: lab results, diagnosis - Departure Departure Disposition: Observation Clinical Impression: Vomiting, Diarrhea, Anemia, Weakness Condition: Stable Critical Care Time: No
[2020-04-21] MEDS ORDERED: Sodium Chloride 0.9% 1000 ML 1,000 ML IV STA (14:22)
[2020-04-21] MEDS ORDERED: Zofran 4 MG/2 ML VIAL IV ONE (14:24)
[2020-04-21] MEDS ORDERED: Sodium Chloride 0.9% 1000 ML 1,000 ML ONE ×2 (14:35→19:08)
[2020-04-21] MEDS ORDERED: Zofran 4 MG/2 ML VIAL ONE (14:35)
[2020-04-21 14:52] LABS: Absolute Neutrophil Ct (ANC) 6.13 (1.4-6.9); BASOPHIL % 0.1 % (0.0-0.4); Basophil (Absolute #) 0.01 (0-0.4); Eosinophil % 1.3 % (0.00-5.0); Hematocrit 29.2 % (42-50); Hemoglobin 8.9 gm/dl (12.5-18.0); Lymphocyte (Absolute #) 0.85 (1.0-4.6); Lymphocytes % 11.2 % (24.0-44.0); Mean Cell Volume 87.7 fl (78-100); Mean Corpuscular Hemoglobin 26.7 pg (26-32); Mean Corpuscular Hgb Concent. 30.5 g/dl (32-36); Mean Platelet Volume 10.6 fl (7.5-11.0); Monocyte (Absolute #) 0.53 (0.0-1.3); Neutrophil % 80.4 % (36.0-66.0); Platelet Count 236 K/mm3 (150-450); Red Blood Count 3.33 M/mm3 (4.1-5.6); Red Cell Distribution Width 15.4 % (11.5-14.0); White Blood Count 7.6 K/mm3 (4.0-10.5)
[2020-04-21 15:10] LABS: ALBUMIN 3.5 g/dL (3.5-5.0); ANION GAP 13.5 MEQ/L (5-15); BILIRUBIN,TOTAL 0.4 mg/dL (0.2-1.3); Creatinine 1 1.54 mg/dL (0.66-1.25); EST GLOMERULAR FILTRATION RATE 45.8 ML/MIN; MAGNESIUM 1.7 mg/dL (1.6-2.3); Potassium 4.6 mmol/L (3.5-5.1)
[2020-04-21 18:46] LABS: Appearance CLEAR (CLEAR); Bilirubin NEGATIVE (NEGATIVE); Blood NEGATIVE Ery/ul (0-5); Glucose NEGATIVE (NEGATIVE); Hyaline Casts 0-2 /LPF (0-2); Ketones NEGATIVE (NEGATIVE); Leukocyte Esterase NEGATIVE (NEGATIVE); Mucus SLIGHT /HPF (NEGATIVE); Nitrite NEGATIVE (NEGATIVE); Protein,Urine Dip NEGATIVE (Negative); Specific Gravity 1.017 (1.005-1.025); Urobilinogen NEGATIVE mg/dL (0-1)
[2020-04-21 18:57] LABS: Bacteria NONE SEEN /HPF (NEGATIVE)
[2020-04-21] MEDS ORDERED: Sodium Chloride 0.9% 1000 ML 1,000 ML IV SCH (19:15)
[2020-04-21] MEDS ORDERED: TYLENOL 325 MG PO PRN (19:43)
[2020-04-21] MEDS ORDERED: Zofran 4 MG/2 ML VIAL IV PRN (19:43)
--- NOTE | 2020-04-21 22:24 | PCM.HP ---
History of Present Illness - Chief Complaint Chief Complaint: weakness for 1 week, Diarrhea and vomiting History of Present Illness: is a 85 year old male who has had diarrhea for 3 days and began vomiting today. Patient has been feeling weak. He got up today and fell forward. He has no injuries per his report. He denies any shortness of breath he denies and he denies chest pain. He has no specific abdominal pain. Severity: moderate Associated Symptoms: vomiting, weakness, other (Diarrhea), No shortness of breath - Review of Systems Constitutional: Fatigue, Weakness, No Fever, No Chills Eyes: No Symptoms Ears, Nose, & Throat: No Symptoms Respiratory: No Cough, No Short Of Breath Cardiac: No Chest Pain, No Edema, No Syncope Abdominal/Gastrointestinal: Vomiting, Diarrhea, No Abdominal Pain, No Nausea Genitourinary Symptoms: No Dysuria Musculoskeletal: No Back Pain, No Neck Pain Skin: No Rash Neurological: No Dizziness, No Focal Weakness, No Sensory Changes Psychological: No Symptoms Endocrine: No Symptoms Hematologic/Lymphatic: No Symptoms Immunological/Allergic: No Symptoms Medications & Allergies Home Medications: Home Medication List Aspirin [Aspir 81] 81 mg PO DAILY 07/23/12 [History Confirmed 04/21/20] Isosorbide Mononitrate 30 mg [Imdur 30 MG] 30 mg PO DAILY 09/21/12 [History Confirmed 04/21/20] Potassium Chloride 10 Meq Tab* [Klor Con 10 MEQ] 10 meq PO BID 09/21/12 [History Confirmed 04/21/20] Pravastatin Sodium 10 mg [Pravachol 10 MG] 10 mg PO HS 09/21/12 [History Confirmed 04/21/20] Carvedilol 6.25 mg [Coreg 6.25 MG] 3.125 mg PO BID 02/04/15 [History Confirmed 04/21/20] Clopidogrel Bisulfate 75 mg [PLAVIX 75 MG Tablet] 75 mg PO DAILY 02/04/15 [History Confirmed 04/21/20] Lisinopril/Hydrochlorothiazide [Lisinopril-Hctz 20-25 mg Tab] 20 - 25 mg PO DAILY 02/04/15 [History Confirmed 04/21/20] Tamsulosin HCl 0.4 mg [Flomax 0.4 MG] 0.4 mg PO DAILY 08/08/17 [History Confirmed 04/21/20] Acetaminophen 500 mg [Tylenol Extra Strength 500 mg] 500 - 1,000 mg PO Q6HPRN PRN 07/28/19 [History Confirmed 04/21/20] Folic Acid 1 mg PO DAILY 07/28/19 [History Confirmed 04/21/20] Oxybutynin Chloride [Oxybutynin Chloride ER] 5 mg PO DAILY 07/28/19 [History Confirmed 04/21/20] PARoxetine HCL [Paroxetine HCl] 10 mg PO DAILY 07/28/19 [History Confirmed 04/21/20] Vit C/E/Zn/Coppr/Lutein/Zeaxan [Preservision Areds 2 Softgel] 1 cap PO BID 07/28/19 [History Confirmed 04/21/20] Vitamin E 400 Units [Vitamin E 400 UNIT SOFTGEL] 400 unit PO BID 07/28/19 [History Confirmed 04/21/20] Omeprazole 40 mg PO DAILY #0 08/08/19 [Rx Confirmed 04/21/20] Clopidogrel Bisulfate 75 mg [PLAVIX 75 MG Tablet] 75 mg PO DAILY 04/21/20 [History Confirmed 04/21/20] Empagliflozin/Metformin HCl [Synjardy Xr 25-1,000 mg Tablet] 2 each PO BID 04/21/20 [History Confirmed 04/21/20] Allergies/Adverse Reactions: Allergies Allergy/AdvReac Type Severity Reaction Status Date / Time No Known Drug Allergies Allergy Verified 02/21/20 17:56 - Past Medical History Past Medical History: Yes Neurological History: TIA ENT History: No Pertinent History Cardiac History: Hypertension Respiratory History: No Pertinent History Endocrine Medical History: Diabetes Type II Musculoskelatal History: Arthritis GI Medical History: GI Bleed History: No Pertinent History Pyscho-Social History: No Pertinent History Male Reproductive Disorders: No Pertinent History - Past Surgical History Past Surgical History: Yes Neuro Surgical History: No Pertinent History Cardiac History: Cardiac Stent Respiratory Surgery: No Pertinent History GI Surgical History: Hernia Repair Genitourinary Surgical Hx: No Pertinent History Musculskeletal Surgical Hx: Orthopedic Surgery Male Surgical History: No Pertinent History Other Surgical History: Nasal surgery - Social History Smoking Status: Never smoker Exposure to second hand smoke: No Alcohol: None Drug Use: none Significant Family History: no pertinent family hx - Physical Exam Vital Signs: Vital Signs - 24 hr Temp Pulse Resp BP Pulse Ox 04/21/20 20:58 97.6 F 73 18 177/75 97 04/21/20 19:08 72 16 144/86 97 04/21/20 18:19 74 143/70 04/21/20 17:06 74 140/69 97 04/21/20 15:42 98.2 F 67 97/41 04/21/20 14:45 67 16 97/41 98 04/21/20 14:30 97 04/21/20 13:43 98.2 F 63 18 108/58 100 General Appearance: no apparent distress, alert Neurologic Exam: alert, oriented x 3, cooperative, normal mood/affect, nml cerebellar function, nml station & gait, sensation nml, No motor deficits Eye Exam: PERRL/EOMI, eyes nml inspection Ears, Nose, Throat Exam: normal ENT inspection, TMs normal, pharynx normal, moist mucous membranes Neck Exam: normal inspection, non-tender, supple, full range of motion Respiratory Exam: normal breath sounds, lungs clear, No respiratory distress Cardiovascular Exam: regular rate/rhythm, normal heart sounds, normal peripheral pulses Gastrointestinal/Abdomen Exam: soft, normal bowel sounds, No tenderness, No mass Back Exam: normal inspection, normal range of motion, No CVA tenderness, No vertebral tenderness Extremity Exam: normal inspection, normal range of motion, pelvis stable Skin Exam: normal color, warm, dry, No rash Lymphatic Exam: No adenopathy Results - Labs Lab/Micro Results: Lab Results-Last 24 Hours 04/21/20 04/21/20 04/21/20 Range/Units 14:40 14:40 14:40 WBC 7.6 (4.0-10.5) K/mm3 RBC 3.33 L (4.1-5.6) M/mm3 Hgb 8.9 L (12.5-18.0) gm/dl Hct 29.2 L (42-50) % MCV 87.7 (78-100) fl MCH 26.7 (26-32) pg MCHC 30.5 L (32-36) g/dl RDW 15.4 H (11.5-14.0) % Plt Count 236 (150-450) K/mm3 MPV 10.6 (7.5-11.0) fl Gran % 80.4 H (36.0-66.0) % Eos # (Auto) 0.10 (0-0.5) Absolute Lymphs (auto) 0.85 L (1.0-4.6) Absolute Monos (auto) 0.53 (0.0-1.3) Lymphocytes % 11.2 L (24.0-44.0) % Monocytes % 7.0 (0.0-12.0) % Eosinophils % 1.3 (0.00-5.0) % Basophils % 0.1 (0.0-0.4) % Absolute Granulocytes 6.13 (1.4-6.9) Basophils # 0.01 (0-0.4) Sodium 137 (137-145) mmol/L Potassium 4.6 (3.5-5.1) mmol/L Chloride 106 (98-107) mmol/L Carbon Dioxide 22 (22-30) mmol/L Anion Gap 13.5 (5-15) MEQ/L BUN 24 H (9-20) mg/dL Creatinine 1.54 H (0.66-1.25) mg/dL Estimated GFR 45.8 ML/MIN Glucose 195 H (74-106) mg/dL POC Glucometer (74 to 106) mg/dL Calcium 10.0 (8.4-10.2) mg/dL Magnesium 1.7 (1.6-2.3) mg/dL Total Bilirubin 0.40 (0.2-1.3) mg/dL AST 18 (17-59) U/L ALT 15 (0-50) U/L Alkaline Phosphatase 69 (38-126) U/L Troponin I < 0.012 (0.000-0.034) ng/mL NT-Pro-B Natriuret Pep 183 (0-1800) pg/mL Serum Total Protein 6.0 L (6.3-8.2) g/dL Albumin 3.5 (3.5-5.0) g/dL Urine Color (YELLOW) Urine Appearance (CLEAR) Urine pH (5-6) Ur Specific Girard (1.005-1.025) Urine Protein (Negative) Urine Ketones (NEGATIVE) Urine Blood (0-5) Wicho/ul Urine Nitrite (NEGATIVE) Urine Bilirubin (NEGATIVE) Urine Urobilinogen (0-1) mg/dL Ur Leukocyte Esterase (NEGATIVE) Urine WBC (Auto) (0-5) /HPF Urine RBC (Auto) (0-2) /HPF U Hyaline Cast (Auto) (0-2) /LPF U Epithel Cells (Auto) (FEW) /HPF Urine Bacteria (Auto) (NEGATIVE) /HPF Urine Mucus (Auto) (NEGATIVE) /HPF Urine Culture Reflexed (NO) Urine Glucose (NEGATIVE) mg/dL 04/21/20 04/21/20 04/21/20 Range/Units 17:35 18:33 21:00 WBC (4.0-10.5) K/mm3 RBC (4.1-5.6) M/mm3 Hgb (12.5-18.0) gm/dl Hct (42-50) % MCV (78-100) fl MCH (26-32) pg MCHC (32-36) g/dl RDW (11.5-14.0) % Plt Count (150-450) K/mm3 MPV (7.5-11.0) fl Gran % (36.0-66.0) % Eos # (Auto) (0-0.5) Absolute Lymphs (auto) (1.0-4.6) Absolute Monos (auto) (0.0-1.3) Lymphocytes % (24.0-44.0) % Monocytes % (0.0-12.0) % Eosinophils % (0.00-5.0) % Basophils % (0.0-0.4) % Absolute Granulocytes (1.4-6.9) Basophils # (0-0.4) Sodium (137-145) mmol/L Potassium (3.5-5.1) mmol/L Chloride (98-107) mmol/L Carbon Dioxide (22-30) mmol/L Anion Gap (5-15) MEQ/L BUN (9-20) mg/dL Creatinine (0.66-1.25) mg/dL Estimated GFR ML/MIN Glucose (74-106) mg/dL POC Glucometer (74 to 106) mg/dL Calcium (8.4-10.2) mg/dL Magnesium (1.6-2.3) mg/dL Total Bilirubin (0.2-1.3) mg/dL AST (17-59) U/L ALT (0-50) U/L Alkaline Phosphatase (38-126) U/L Troponin I < 0.012 < 0.012 (0.000-0.034) ng/mL NT-Pro-B Natriuret Pep (0-1800) pg/mL Serum Total Protein (6.3-8.2) g/dL Albumin (3.5-5.0) g/dL Urine Color YELLOW (YELLOW) Urine Appearance CLEAR (CLEAR) Urine pH 5.0 (5-6) Ur Specific Girard 1.017 (1.005-1.025) Urine Protein NEGATIVE (Negative) Urine Ketones NEGATIVE (NEGATIVE) Urine Blood NEGATIVE (0-5) Wihco/ul Urine Nitrite NEGATIVE (NEGATIVE) Urine Bilirubin NEGATIVE (NEGATIVE) Urine Urobilinogen NEGATIVE (0-1) mg/dL Ur Leukocyte Esterase NEGATIVE (NEGATIVE) Urine WBC (Auto) NONE (0-5) /HPF Urine RBC (Auto) NONE (0-2) /HPF U Hyaline Cast (Auto) 0-2 (0-2) /LPF U Epithel Cells (Auto) NONE (FEW) /HPF Urine Bacteria (Auto) NONE SEEN (NEGATIVE) /HPF Urine Mucus (Auto) SLIGHT (NEGATIVE) /HPF Urine Culture Reflexed NO (NO) Urine Glucose NEGATIVE (NEGATIVE) mg/dL 04/21/20 Range/Units 21:56 WBC (4.0-10.5) K/mm3 RBC (4.1-5.6) M/mm3 Hgb (12.5-18.0) gm/dl Hct (42-50) % MCV (78-100) fl MCH (26-32) pg MCHC (32-36) g/dl RDW (11.5-14.0) % Plt Count (150-450) K/mm3 MPV (7.5-11.0) fl Gran % (36.0-66.0) % Eos # (Auto) (0-0.5) Absolute Lymphs (auto) (1.0-4.6) Absolute Monos (auto) (0.0-1.3) Lymphocytes % (24.0-44.0) % Monocytes % (0.0-12.0) % Eosinophils % (0.00-5.0) % Basophils % (0.0-0.4) % Absolute Granulocytes (1.4-6.9) Basophils # (0-0.4) Sodium (137-145) mmol/L Potassium (3.5-5.1) mmol/L Chloride (98-107) mmol/L Carbon Dioxide (22-30) mmol/L Anion Gap (5-15) MEQ/L BUN (9-20) mg/dL Creatinine (0.66-1.25) mg/dL Estimated GFR ML/MIN Glucose (74-106) mg/dL POC Glucometer 177 H (74 to 106) mg/dL Calcium (8.4-10.2) mg/dL Magnesium (1.6-2.3) mg/dL Total Bilirubin (0.2-1.3) mg/dL AST (17-59) U/L ALT (0-50) U/L Alkaline Phosphatase (38-126) U/L Troponin I (0.000-0.034) ng/mL NT-Pro-B Natriuret Pep (0-1800) pg/mL Serum Total Protein (6.3-8.2) g/dL Albumin (3.5-5.0) g/dL Urine Color (YELLOW) Urine Appearance (CLEAR) Urine pH (5-6) Ur Specific Girard (1.005-1.025) Urine Protein (Negative) Urine Ketones (NEGATIVE) Urine Blood (0-5) Wicho/ul Urine Nitrite (NEGATIVE) Urine Bilirubin (NEGATIVE) Urine Urobilinogen (0-1) mg/dL Ur Leukocyte Esterase (NEGATIVE) Urine WBC (Auto) (0-5) /HPF Urine RBC (Auto) (0-2) /HPF U Hyaline Cast (Auto) (0-2) /LPF U Epithel Cells (Auto) (FEW) /HPF Urine Bacteria (Auto) (NEGATIVE) /HPF Urine Mucus (Auto) (NEGATIVE) /HPF Urine Culture Reflexed (NO) Urine Glucose (NEGATIVE) mg/dL Assessment/Plan (1) Diarrhea Current Visit: Yes Status: Acute Qualifiers: Diarrhea type: unspecified type Qualified Code(s): R19.7 - Diarrhea, unspecified Assessment & Plan: Chief Complaint Diagnosis Anemia Allergies Allergy/AdvReac Type Severity Reaction Status Date / Time No Known Drug Allergies Allergy Verified 02/21/20 17:56 Vital Signs (Last 24 hours) Temp Pulse Resp BP Pulse Ox 04/21/20 20:58 97.6 F 73 18 177/75 97 04/21/20 19:08 72 16 144/86 97 04/21/20 18:19 74 143/70 04/21/20 17:06 74 140/69 97 04/21/20 15:42 98.2 F 67 97/41 04/21/20 14:45 67 16 97/41 98 04/21/20 14:30 97 04/21/20 13:43 98.2 F 63 18 108/58 100 Home Medications Medication Instructions Recorded Confirmed Last Taken Type Clopidogrel Bisulfate 75 mg 75 mg PO DAILY 04/21/20 04/21/20 04/21/20 08:00 History [PLAVIX 75 MG Tablet] Empagliflozin/Metformin HCl 2 each PO BID 04/21/20 04/21/20 Unknown History [Synjardy Xr 25-1,000 mg Tablet] Current Medications Generic Name Dose Route Start Last Admin Trade Name Frejayce PRN Reason Stop Dose Admin Acetaminophen 650 mg 04/21/20 19:43 Tylenol 325 Mg PO 05/21/20 19:42 Q4H PRN PRN PAIN, FEVER, HEADACHE Sodium Chloride 1,000 mls @ 100 mls/hr 04/21/20 19:45 Sodium Chloride 0.9% 1000 Ml IV 05/21/20 19:44 .Q10H ART Ondansetron HCl 4 mg 04/21/20 19:43 Zofran 4 Mg/2 Ml Vial IV 05/21/20 19:42 Q6H PRN PRN NAUSEA/VOMITING Discontinued Medications Generic Name Dose Route Start Last Admin Trade Name Frejayce PRN Reason Stop Dose Admin Sodium Chloride 1,000 mls @ 999 mls/hr 04/21/20 14:22 04/21/20 15:47 Sodium Chloride 0.9% 1000 Ml IV 04/21/20 15:22 Infused .Q1H1M STA Infusion Sodium Chloride Confirm 04/21/20 14:35 Sodium Chloride 0.9% 1000 Ml Administered 04/21/20 14:36 Dose 1,000 mls @ ud .ROUTE .STK-MED ONE Sodium Chloride 1,000 mls @ 100 mls/hr 04/21/20 19:15 04/21/20 19:11 Sodium Chloride 0.9% 1000 Ml IV 05/21/20 19:14 100 mls/hr .Q10H ART Administration Sodium Chloride Confirm 04/21/20 19:08 Sodium Chloride 0.9% 1000 Ml Administered 04/21/20 19:09 Dose 1,000 mls @ ud .ROUTE .STK-MED ONE Ondansetron HCl 4 mg 04/21/20 14:24 04/21/20 14:40 Zofran 4 Mg/2 Ml Vial IV 04/21/20 14:25 4 mg STAT ONE Administration Ondansetron HCl Confirm 04/21/20 14:35 Zofran 4 Mg/2 Ml Vial Administered 04/21/20 14:36 Dose 4 mg .ROUTE .STK-MED ONE Intake & Output (Last 24 hours) 04/19/20 04/20/20 04/21/20 04/22/20 11:59 11:59 11:59 11:59 Weight 77.6 kg Laboratory Results (Last 24 hours) 04/21/20 04/21/20 04/21/20 21:56 21:00 18:33 WBC RBC Hgb Hct MCV MCH MCHC RDW Plt Count MPV Gran % Eos # (Auto) Absolute Lymphs (auto) Absolute Monos (auto) Lymphocytes % Monocytes % Eosinophils % Basophils % Absolute Granulocytes Basophils # Sodium Potassium Chloride Carbon Dioxide Anion Gap BUN Creatinine Estimated GFR Glucose POC Glucometer 177 H Calcium Magnesium Total Bilirubin AST ALT Alkaline Phosphatase Troponin I < 0.012 NT-Pro-B Natriuret Pep Serum Total Protein Albumin Urine Color YELLOW Urine Appearance CLEAR Urine pH 5.0 Ur Specific Girard 1.017 Urine Protein NEGATIVE Urine Ketones NEGATIVE Urine Blood NEGATIVE Urine Nitrite NEGATIVE Urine Bilirubin NEGATIVE Urine Urobilinogen NEGATIVE Ur Leukocyte Esterase NEGATIVE Urine WBC (Auto) NONE Urine RBC (Auto) NONE U Hyaline Cast (Auto) 0-2 U Epithel Cells (Auto) NONE Urine Bacteria (Auto) NONE SEEN Urine Mucus (Auto) SLIGHT Urine Culture Reflexed NO Urine Glucose NEGATIVE 04/21/20 04/21/20 04/21/20 17:35 14:40 14:40 WBC RBC Hgb Hct MCV MCH MCHC RDW Plt Count MPV Gran % Eos # (Auto) Absolute Lymphs (auto) Absolute Monos (auto) Lymphocytes % Monocytes % Eosinophils % Basophils % Absolute Granulocytes Basophils # Sodium 137 Potassium 4.6 Chloride 106 Carbon Dioxide 22 Anion Gap 13.5 BUN 24 H Creatinine 1.54 H Estimated GFR 45.8 Glucose 195 H POC Glucometer Calcium 10.0 Magnesium 1.7 Total Bilirubin 0.40 AST 18 ALT 15 Alkaline Phosphatase 69 Troponin I < 0.012 < 0.012 NT-Pro-B Natriuret Pep 183 Serum Total Protein 6.0 L Albumin 3.5 Urine Color Urine Appearance Urine pH Ur Specific Girard Urine Protein Urine Ketones Urine Blood Urine Nitrite Urine Bilirubin Urine Urobilinogen Ur Leukocyte Esterase Urine WBC (Auto) Urine RBC (Auto) U Hyaline Cast (Auto) U Epithel Cells (Auto) Urine Bacteria (Auto) Urine Mucus (Auto) Urine Culture Reflexed Urine Glucose 04/21/20 14:40 WBC 7.6 RBC 3.33 L Hgb 8.9 L Hct 29.2 L MCV 87.7 MCH 26.7 MCHC 30.5 L RDW 15.4 H Plt Count 236 MPV 10.6 Gran % 80.4 H Eos # (Auto) 0.10 Absolute Lymphs (auto) 0.85 L Absolute Monos (auto) 0.53 Lymphocytes % 11.2 L Monocytes % 7.0 Eosinophils % 1.3 Basophils % 0.1 Absolute Granulocytes 6.13 Basophils # 0.01 Sodium Potassium Chloride Carbon Dioxide Anion Gap BUN Creatinine Estimated GFR Glucose POC Glucometer Calcium Magnesium Total Bilirubin AST ALT Alkaline Phosphatase Troponin I NT-Pro-B Natriuret Pep Serum Total Protein Albumin Urine Color Urine Appearance Urine pH Ur Specific Girard Urine Protein Urine Ketones Urine Blood Urine Nitrite Urine Bilirubin Urine Urobilinogen Ur Leukocyte Esterase Urine WBC (Auto) Urine RBC (Auto) U Hyaline Cast (Auto) U Epithel Cells (Auto) Urine Bacteria (Auto) Urine Mucus (Auto) Urine Culture Reflexed Urine Glucose Orders (Last 24 hours) Category Date Time Status Up With Assistance TOLERATED Activity 04/21/20 19:43 Active Yam Curer STAT Care 04/21/20 14:23 Completed Code Status Order ROUTINE Care 04/21/20 19:43 Active EKG-ER Only STAT Care 04/21/20 14:22 Completed IV Insertion STAT Care 04/21/20 14:[address] in Observation ROUTINE Care 04/21/20 19:43 Active Pulse Oximetry (ED) STAT Care 04/21/20 14:22 Completed Clear Liquid Diet 04/21/20 Dinner Active BMP AM.LAB Lab 04/22/20 04:00 Ordered CBC W DIFF AM.LAB Lab 04/22/20 04:00 Ordered CBC W DIFF Stat Lab 04/21/20 14:40 Completed CMP Stat Lab 04/21/20 14:40 Completed MAGNESIUM Stat Lab 04/21/20 14:40 Completed NT PRO BNP Stat Lab 04/21/20 14:40 Completed POCT GLUCOSE Stat Lab 04/21/20 21:56 Completed TROPONIN Q3H Lab 04/21/20 14:40 Completed TROPONIN Q3H Lab 04/21/20 17:35 Completed TROPONIN Q3H Lab 04/21/20 21:00 Completed TROPONIN Q3H Lab 04/21/20 23:30 Ordered TROPONIN Q3H Lab 04/22/20 02:30 Ordered UA W/RFX UR CULTURE Stat Lab 04/21/20 18:33 Completed Acetaminophen 325 mg [Tylenol 325 mg] Med 04/21/20 19:43 Ordered 650 mg PO Q4H PRN PRN NaCl 0.9% 1000 ml [Sodium Chloride 0.9% 1000 ML] 1,000 Med 04/21/20 14:35 Discontinued ml .ROUTE UD NaCl 0.9% 1000 ml [Sodium Chloride 0.9% 1000 ML] 1,000 Med 04/21/20 19:08 Discontinued ml .ROUTE UD NaCl 0.9% 1000 ml [Sodium Chloride 0.9% 1000 ML] 1,000 Med 04/21/20 19:15 Discontinued ml IV 100 mls/hr NaCl 0.9% 1000 ml [Sodium Chloride 0.9% 1000 ML] 1,000 Med 04/21/20 19:45 Ordered ml IV 100 mls/hr NaCl 0.9% 1000 ml [Sodium Chloride 0.9% 1000 ML] 1,000 Med 04/21/20 14:22 Discontinued ml IV 999 mls/hr Ondansetron HCl 4 mg/2 ml [Zofran 4 MG/2 ML VIAL] Med 04/21/20 14:35 Discontinued 4 mg .ROUTE .STK-MED ONE Ondansetron HCl 4 mg/2 ml [Zofran 4 MG/2 ML VIAL] Med 04/21/20 19:43 Ordered 4 mg IV Q6H PRN PRN Ondansetron HCl 4 mg/2 ml [Zofran 4 MG/2 ML VIAL] Med 04/21/20 14:24 Discontinued 4 mg IV STAT ONE Pulse Oximetry ROUTINE RT 04/21/20 19:43 Active Transfer Order Routine Transfer 04/21/20 Completed Patient Care Notes (Last 24 hours) 04/21/20 19:41 Nursing Admission Note by Shantel Garg patient was flipped from er to [facility] before er doctor put in transfer orders. initial transfer orders are from er to m/s outpatient Initialized on 04/21/20 19:41 - END OF NOTE Code(s): R19.7 - DIARRHEA, UNSPECIFIED (2) Vomiting Current Visit: Yes Status: Acute Qualifiers: Vomiting type: unspecified Code(s): R11.10 - VOMITING, UNSPECIFIED (3) Weakness Current Visit: Yes Status: Acute Code(s): R53.1 - WEAKNESS (4) Type 2 diabetes mellitus Current Visit: No Status: Acute Qualifiers:
[2020-04-21] MEDS: Sodium Chloride 0.9% 1000 ML 1,000 ML IV SCH (23:01)
[2020-04-21] MEDS ORDERED: TYLENOL EXTRA STRENGTH 500 MG PO PRN (23:05)
[2020-04-21] MEDS ORDERED: Zocor 10MG ONE (23:53)
[2020-04-22] MEDS: Glucophage 500 MG PO SCH ×3 (00:22→16:41)
[2020-04-22] MEDS: Pepcid 20 MG PO SCH ×2 (00:23→08:56)
[2020-04-22] MEDS: Klor Con 10 MEQ PO SCH ×3 (00:24→21:41)
[2020-04-22] MEDS: Zocor 10MG PO SCH ×2 (00:25→21:42)
[2020-04-22] MEDS: Coreg 3.125 MG PO SCH ×3 (00:25→21:42)
[2020-04-22] MEDS: Sodium Chloride 0.9% 1000 ML 1,000 ML IV SCH ×2 (04:02→14:17)
[2020-04-22 05:19] LABS: Absolute Neutrophil Ct (ANC) 3.36 (1.4-6.9); BASOPHIL % 0.2 % (0.0-0.4); Basophil (Absolute #) 0.01 (0-0.4); Eosinophil % 2.3 % (0.00-5.0); Eosinophil (Absolute #) 0.13 (0-0.5); Hematocrit 26.3 % (42-50); Hemoglobin 7.9 gm/dl (12.5-18.0); Lymphocyte (Absolute #) 1.44 (1.0-4.6); Lymphocytes % 25.9 % (24.0-44.0); Mean Cell Volume 87.7 fl (78-100); Mean Corpuscular Hemoglobin 26.3 pg (26-32); Mean Platelet Volume 9.9 fl (7.5-11.0); Monocyte (Absolute #) 0.63 (0.0-1.3); Monocytes % 11.3 % (0.0-12.0); Neutrophil % 60.3 % (36.0-66.0); Platelet Count 205 K/mm3 (150-450); Red Cell Distribution Width 15.3 % (11.5-14.0); White Blood Count 5.6 K/mm3 (4.0-10.5)
[2020-04-22 05:34] LABS: ANION GAP 10.6 MEQ/L (5-15); Calcium 9.5 mg/dL (8.4-10.2); Creatinine 1 1.28 mg/dL (0.66-1.25); EST GLOMERULAR FILTRATION RATE 56.6 ML/MIN; Potassium 4.1 mmol/L (3.5-5.1)
[2020-04-22] MEDS ORDERED: Glucophage 850 MG PO SCH (08:00)
[2020-04-22] MEDS: Flomax 0.4 MG PO SCH (08:55)
[2020-04-22] MEDS: ECOTRIN 81 MG PO SCH (08:56)
[2020-04-22] MEDS: PLAVIX 75 MG Tablet PO SCH (08:56)
[2020-04-22] MEDS: Vitamin E 400 UNIT SOFTGEL PO SCH ×2 (08:56→21:41)
[2020-04-22] MEDS: FOLATE 1 MG PO SCH (08:56)
[2020-04-22] MEDS: Ditropan 5 MG PO SCH (08:57)
[2020-04-22] MEDS: Zestril 20 MG*** 20 MG, hydroDIURIL 25 MG*** 25 MG PO SCH ×2 (08:57)
[2020-04-22] MEDS: Paxil 20 MG PO SCH (08:58)
[2020-04-22] MEDS: Imdur 30 MG PO SCH (08:58)
[2020-04-22] MEDS ORDERED: Coreg 6.25 MG PO SCH (10:00)
--- NOTE | 2020-04-22 11:42 | PCM.NOTE ---
Date and Time: 04/22/20 1142 Subjective Assessment: doing ok - Review of Systems Constitutional: No Fever, No Chills Eyes: No Symptoms Ears, Nose, & Throat: No Symptoms Respiratory: No Cough, No Short Of Breath Cardiac: No Chest Pain, No Edema, No Syncope Abdominal/Gastrointestinal: No Abdominal Pain, No Nausea, No Vomiting, No Diarrhea Genitourinary Symptoms: No Dysuria Musculoskeletal: No Back Pain, No Neck Pain Skin: No Rash Neurological: No Dizziness, No Focal Weakness, No Sensory Changes Psychological: No Symptoms Endocrine: No Symptoms Hematologic/Lymphatic: No Symptoms Immunological/Allergic: No Symptoms Objective Exam General Appearance: no apparent distress, alert Neurologic Exam: alert, oriented x 3, cooperative, normal mood/affect, nml cerebellar function, sensation nml, No motor deficits Skin Exam: normal color, warm, dry Eye Exam: PERRL, EOMI, eyes nml inspection Ears, Nose, Throat Exam: normal ENT inspection, pharynx normal, moist mucous membranes Neck Exam: normal inspection, non-tender, supple, full range of motion Respiratory Exam: normal breath sounds, lungs clear, No respiratory distress Cardiovascular Exam: regular rate/rhythm, normal heart sounds Gastrointestinal/Abdomen Exam: soft, No tenderness, No mass Extremity Exam: normal inspection, normal range of motion Back Exam: normal inspection, normal range of motion, No CVA tenderness, No vertebral tenderness Male Genitalia Exam: deferred Rectal Exam: deferred OBJECTIVE DATA Vital Signs: Vital Signs - 24 hr Temp Pulse Resp BP Pulse Ox 04/22/20 11:34 98.1 F 72 18 158/70 96 04/22/20 07:10 97.7 F 72 20 175/79 95 04/22/20 04:00 98.2 F 66 18 168/76 98 04/21/20 23:51 98.4 F 71 18 159/74 95 04/21/20 20:58 97.6 F 73 18 177/75 97 04/21/20 19:08 72 16 144/86 97 04/21/20 18:19 74 143/70 04/21/20 17:06 74 140/69 97 04/21/20 15:42 98.2 F 67 97/41 04/21/20 14:45 67 16 97/41 98 04/21/20 14:30 97 04/21/20 13:43 98.2 F 63 18 108/58 100 Pain Assessment - Last Documented Pain Intensity 0 Intake and Output: Intake & Output 04/19/20 04/20/20 04/21/20 04/22/20 11:59 11:59 11:59 11:59 Intake Total 2260 Output Total 1750 Balance 510 Weight 78 kg Lab Results: Lab Results-Last 24 Hours 04/21/20 04/21/20 04/21/20 Range/Units 14:40 14:40 14:40 WBC 7.6 (4.0-10.5) K/mm3 RBC 3.33 L (4.1-5.6) M/mm3 Hgb 8.9 L (12.5-18.0) gm/dl Hct 29.2 L (42-50) % MCV 87.7 (78-100) fl MCH 26.7 (26-32) pg MCHC 30.5 L (32-36) g/dl RDW 15.4 H (11.5-14.0) % Plt Count 236 (150-450) K/mm3 MPV 10.6 (7.5-11.0) fl Gran % 80.4 H (36.0-66.0) % Eos # (Auto) 0.10 (0-0.5) Absolute Lymphs (auto) 0.85 L (1.0-4.6) Absolute Monos (auto) 0.53 (0.0-1.3) Lymphocytes % 11.2 L (24.0-44.0) % Monocytes % 7.0 (0.0-12.0) % Eosinophils % 1.3 (0.00-5.0) % Basophils % 0.1 (0.0-0.4) % Absolute Granulocytes 6.13 (1.4-6.9) Basophils # 0.01 (0-0.4) Sodium 137 (137-145) mmol/L Potassium 4.6 (3.5-5.1) mmol/L Chloride 106 (98-107) mmol/L Carbon Dioxide 22 (22-30) mmol/L Anion Gap 13.5 (5-15) MEQ/L BUN 24 H (9-20) mg/dL Creatinine 1.54 H (0.66-1.25) mg/dL Estimated GFR 45.8 ML/MIN Glucose 195 H (74-106) mg/dL POC Glucometer (74 to 106) mg/dL Hemoglobin A1c (4.5-6.0) % Calcium 10.0 (8.4-10.2) mg/dL Magnesium 1.7 (1.6-2.3) mg/dL Total Bilirubin 0.40 (0.2-1.3) mg/dL AST 18 (17-59) U/L ALT 15 (0-50) U/L Alkaline Phosphatase 69 (38-126) U/L Troponin I < 0.012 (0.000-0.034) ng/mL NT-Pro-B Natriuret Pep 183 (0-1800) pg/mL Serum Total Protein 6.0 L (6.3-8.2) g/dL Albumin 3.5 (3.5-5.0) g/dL Urine Color (YELLOW) Urine Appearance (CLEAR) Urine pH (5-6) Ur Specific [place] (1.005-1.025) Urine Protein (Negative) Urine Ketones (NEGATIVE) Urine Blood (0-5) [place]/ul Urine Nitrite (NEGATIVE) Urine Bilirubin (NEGATIVE) Urine Urobilinogen (0-1) mg/dL Ur Leukocyte Esterase (NEGATIVE) Urine WBC (Auto) (0-5) /HPF Urine RBC (Auto) (0-2) /HPF U Hyaline Cast (Auto) (0-2) /LPF U Epithel Cells (Auto) (FEW) /HPF Urine Bacteria (Auto) (NEGATIVE) /HPF Urine Mucus (Auto) (NEGATIVE) /HPF Urine Culture Reflexed (NO) Urine Glucose (NEGATIVE) mg/dL 04/21/20 04/21/20 04/21/20 Range/Units 17:35 18:33 21:00 WBC (4.0-10.5) K/mm3 RBC (4.1-5.6) M/mm3 Hgb (12.5-18.0) gm/dl Hct (42-50) % MCV (78-100) fl MCH (26-32) pg MCHC (32-36) g/dl RDW (11.5-14.0) % Plt Count (150-450) K/mm3 MPV (7.5-11.0) fl Gran % (36.0-66.0) % Eos # (Auto) (0-0.5) Absolute Lymphs (auto) (1.0-4.6) Absolute Monos (auto) (0.0-1.3) Lymphocytes % (24.0-44.0) % Monocytes % (0.0-12.0) % Eosinophils % (0.00-5.0) % Basophils % (0.0-0.4) % Absolute Granulocytes (1.4-6.9) Basophils # (0-0.4) Sodium (137-145) mmol/L Potassium (3.5-5.1) mmol/L Chloride (98-107) mmol/L Carbon Dioxide (22-30) mmol/L Anion Gap (5-15) MEQ/L BUN (9-20) mg/dL Creatinine (0.66-1.25) mg/dL Estimated GFR ML/MIN Glucose (74-106) mg/dL POC Glucometer (74 to 106) mg/dL Hemoglobin A1c (4.5-6.0) % Calcium (8.4-10.2) mg/dL Magnesium (1.6-2.3) mg/dL Total Bilirubin (0.2-1.3) mg/dL AST (17-59) U/L ALT (0-50) U/L Alkaline Phosphatase (38-126) U/L Troponin I < 0.012 < 0.012 (0.000-0.034) ng/mL NT-Pro-B Natriuret Pep (0-1800) pg/mL Serum Total Protein (6.3-8.2) g/dL Albumin (3.5-5.0) g/dL Urine Color YELLOW (YELLOW) Urine Appearance CLEAR (CLEAR) Urine pH 5.0 (5-6) Ur Specific [place] 1.017 (1.005-1.025) Urine Protein NEGATIVE (Negative) Urine Ketones NEGATIVE (NEGATIVE) Urine Blood NEGATIVE (0-5) [place]/ul Urine Nitrite NEGATIVE (NEGATIVE) Urine Bilirubin NEGATIVE (NEGATIVE) Urine Urobilinogen NEGATIVE (0-1) mg/dL Ur Leukocyte Esterase NEGATIVE (NEGATIVE) Urine WBC (Auto) NONE (0-5) /HPF Urine RBC (Auto) NONE (0-2) /HPF U Hyaline Cast (Auto) 0-2 (0-2) /LPF U Epithel Cells (Auto) NONE (FEW) /HPF Urine Bacteria (Auto) NONE SEEN (NEGATIVE) /HPF Urine Mucus (Auto) SLIGHT (NEGATIVE) /HPF Urine Culture Reflexed NO (NO) Urine Glucose NEGATIVE (NEGATIVE) mg/dL 04/21/20 04/22/20 04/22/20 Range/Units 21:56 00:44 05:30 WBC 5.6 (4.0-10.5) K/mm3 RBC 3.00 L (4.1-5.6) M/mm3 Hgb 7.9 L (12.5-18.0) gm/dl Hct 26.3 L (42-50) % MCV 87.7 (78-100) fl MCH 26.3 (26-32) pg MCHC 30.0 L (32-36) g/dl RDW 15.3 H (11.5-14.0) % Plt Count 205 (150-450) K/mm3 MPV 9.9 (7.5-11.0) fl Gran % 60.3 (36.0-66.0) % Eos # (Auto) 0.13 (0-0.5) Absolute Lymphs (auto) 1.44 (1.0-4.6) Absolute Monos (auto) 0.63 (0.0-1.3) Lymphocytes % 25.9 (24.0-44.0) % Monocytes % 11.3 (0.0-12.0) % Eosinophils % 2.3 (0.00-5.0) % Basophils % 0.2 (0.0-0.4) % Absolute Granulocytes 3.36 (1.4-6.9) Basophils # 0.01 (0-0.4) Sodium 136 L (137-145) mmol/L Potassium 4.1 (3.5-5.1) mmol/L Chloride 108 H (98-107) mmol/L Carbon Dioxide 22 (22-30) mmol/L Anion Gap 10.6 (5-15) MEQ/L BUN 20 (9-20) mg/dL Creatinine 1.28 H (0.66-1.25) mg/dL Estimated GFR 56.6 ML/MIN Glucose 150 H (74-106) mg/dL POC Glucometer 177 H (74 to 106) mg/dL Hemoglobin A1c (4.5-6.0) % Calcium 9.5 (8.4-10.2) mg/dL Magnesium (1.6-2.3) mg/dL Total Bilirubin (0.2-1.3) mg/dL AST (17-59) U/L ALT (0-50) U/L Alkaline Phosphatase (38-126) U/L Troponin I (0.000-0.034) ng/mL NT-Pro-B Natriuret Pep (0-1800) pg/mL Serum Total Protein (6.3-8.2) g/dL Albumin (3.5-5.0) g/dL Urine Color (YELLOW) Urine Appearance (CLEAR) Urine pH (5-6) Ur Specific [place] (1.005-1.025) Urine Protein (Negative) Urine Ketones (NEGATIVE) Urine Blood (0-5) [place]/ul Urine Nitrite (NEGATIVE) Urine Bilirubin (NEGATIVE) Urine Urobilinogen (0-1) mg/dL Ur Leukocyte Esterase (NEGATIVE) Urine WBC (Auto) (0-5) /HPF Urine RBC (Auto) (0-2) /HPF U Hyaline Cast (Auto) (0-2) /LPF U Epithel Cells (Auto) (FEW) /HPF Urine Bacteria (Auto) (NEGATIVE) /HPF Urine Mucus (Auto) (NEGATIVE) /HPF Urine Culture Reflexed (NO) Urine Glucose (NEGATIVE) mg/dL 04/22/20 04/22/20 04/22/20 Range/Units 06:51 07:30 11:06 WBC (4.0-10.5) K/mm3 RBC (4.1-5.6) M/mm3 Hgb (12.5-18.0) gm/dl Hct (42-50) % MCV (78-100) fl MCH (26-32) pg MCHC (32-36) g/dl RDW (11.5-14.0) % Plt Count (150-450) K/mm3 MPV (7.5-11.0) fl Gran % (36.0-66.0) % Eos # (Auto) (0-0.5) Absolute Lymphs (auto) (1.0-4.6) Absolute Monos (auto) (0.0-1.3) Lymphocytes % (24.0-44.0) % Monocytes % (0.0-12.0) % Eosinophils % (0.00-5.0) % Basophils % (0.0-0.4) % Absolute Granulocytes (1.4-6.9) Basophils # (0-0.4) Sodium (137-145) mmol/L Potassium (3.5-5.1) mmol/L Chloride (98-107) mmol/L Carbon Dioxide (22-30) mmol/L Anion Gap (5-15) MEQ/L BUN (9-20) mg/dL Creatinine (0.66-1.25) mg/dL Estimated GFR ML/MIN Glucose (74-106) mg/dL POC Glucometer 150 H 198 H (74 to 106) mg/dL Hemoglobin A1c 7.60 H (4.5-6.0) % Calcium (8.4-10.2) mg/dL Magnesium (1.6-2.3) mg/dL Total Bilirubin (0.2-1.3) mg/dL AST (17-59) U/L ALT (0-50) U/L Alkaline Phosphatase (38-126) U/L Troponin I (0.000-0.034) ng/mL NT-Pro-B Natriuret Pep (0-1800) pg/mL Serum Total Protein (6.3-8.2) g/dL Albumin (3.5-5.0) g/dL Urine Color (YELLOW) Urine Appearance (CLEAR) Urine pH (5-6) Ur Specific [place] (1.005-1.025) Urine Protein (Negative) Urine Ketones (NEGATIVE) Urine Blood (0-5) [place]/ul Urine Nitrite (NEGATIVE) Urine Bilirubin (NEGATIVE) Urine Urobilinogen (0-1) mg/dL Ur Leukocyte Esterase (NEGATIVE) Urine WBC (Auto) (0-5) /HPF Urine RBC (Auto) (0-2) /HPF U Hyaline Cast (Auto) (0-2) /LPF U Epithel Cells (Auto) (FEW) /HPF Urine Bacteria (Auto) (NEGATIVE) /HPF Urine Mucus (Auto) (NEGATIVE) /HPF Urine Culture Reflexed (NO) Urine Glucose (NEGATIVE) mg/dL Assessment/Plan (1) Diarrhea Current Visit: Yes Status: Acute Qualifiers: Diarrhea type: unspecified type Qualified Code(s): R19.7 - Diarrhea, unspecified Code(s): R19.7 - DIARRHEA, UNSPECIFIED (2) Vomiting Current Visit: Yes Status: Acute Qualifiers: Vomiting type: unspecified Code(s): R11.10 - VOMITING, UNSPECIFIED (3) Weakness Current Visit: Yes Status: Acute Code(s): R53.1 - WEAKNESS (4) Type 2 diabetes mellitus Current Visit: No Status: Acute Qualifiers:
[2020-04-23] MEDS: Sodium Chloride 0.9% 1000 ML 1,000 ML IV SCH (00:21)
[2020-04-23] MEDS: Glucophage 500 MG PO SCH (07:33)
[2020-04-23] MEDS: PLAVIX 75 MG Tablet PO SCH (10:21)
[2020-04-23] MEDS: Flomax 0.4 MG PO SCH (10:21)
[2020-04-23] MEDS: Imdur 30 MG PO SCH (10:21)
[2020-04-23] MEDS: Pepcid 20 MG PO SCH (10:21)
[2020-04-23] MEDS: Paxil 20 MG PO SCH (10:22)
[2020-04-23] MEDS: Ditropan 5 MG PO SCH (10:22)
[2020-04-23] MEDS: Zestril 20 MG*** 20 MG, hydroDIURIL 25 MG*** 25 MG PO SCH ×2 (10:22)
[2020-04-23] MEDS: Vitamin E 400 UNIT SOFTGEL PO SCH (10:23)
[2020-04-23] MEDS: ECOTRIN 81 MG PO SCH (10:23)
[2020-04-23] MEDS: Coreg 3.125 MG PO SCH (10:23)
[2020-04-23] MEDS: Klor Con 10 MEQ PO SCH (10:23)
[2020-04-23] MEDS: FOLATE 1 MG PO SCH (10:23)
--- NOTE | 2020-04-23 11:39 | PCM.DS ---
Discharge Summary Date of Admission: 04/21/20 19:29 Admitting Physician: TIMOTHY PONCE Primary Care Provider: TIMOTHY PONCE Allergies Allergies No Known Drug Allergies Allergy (Verified 02/21/20 17:56) Hospital Summary - Hospital Course Hospital Course: Chief Complaint Diagnosis weakness for 1 week, Diarrhea and vomiting Allergies Allergy/AdvReac Type Severity Reaction Status Date / Time No Known Drug Allergies Allergy Verified 02/21/20 17:56 Vital Signs (Last 24 hours) Temp Pulse Resp BP Pulse Ox 04/23/20 07:45 98.9 F 67 18 162/78 94 L 04/23/20 03:39 97.8 F 77 20 180/75 89 L 04/23/20 00:00 97.9 F 72 20 145/72 96 04/22/20 20:00 98.1 F 71 20 163/74 94 L 04/22/20 16:00 97.5 F 74 18 162/88 95 Home Medications Medication Instructions Recorded Confirmed Last Taken Type Clopidogrel Bisulfate 75 mg 75 mg PO DAILY 04/21/20 04/21/20 04/21/20 08:00 History [PLAVIX 75 MG Tablet] Empagliflozin/Metformin HCl 2 each PO BID 04/21/20 04/21/20 Unknown History [Synjardy Xr 25-1,000 mg Tablet] Omeprazole 40 mg PO BID 04/22/20 04/21/20 Unknown History Current Medications Generic Name Dose Route Start Last Admin Trade Name Freq PRN Reason Stop Dose Admin Acetaminophen 1,000 mg 04/21/20 23:05 Tylenol Extra Strength 500 Mg PO 05/21/20 23:04 Q6H PRN PRN HEADACHE Aspirin 81 mg 04/22/20 10:00 04/23/20 10:23 Ecotrin 81 Mg PO 05/22/20 09:59 81 mg DAILY ART Administration Carvedilol 3.125 mg 04/22/20 10:00 04/23/20 10:23 Coreg 3.125 Mg PO 05/22/20 09:59 3.125 mg BID ART Administration Clopidogrel Bisulfate 75 mg 04/22/20 10:00 04/23/20 10:21 Plavix 75 Mg Tablet PO 05/22/20 09:59 75 mg DAILY ART Administration Lisinopril 20 mg/ 0 mg 04/22/20 10:00 04/23/20 10:22 Hydrochlorothiazide 25 mg PO 05/22/20 09:59 1 mg DAILY ART Administration Famotidine 40 mg 04/22/20 10:00 04/23/20 10:21 Pepcid 20 Mg PO 05/22/20 09:59 40 mg DAILY ART Administration Folic Acid 1 mg 04/22/20 10:00 04/23/20 10:23 Folate 1 Mg PO 05/22/20 09:59 1 mg DAILY ART Administration Sodium Chloride 1,000 mls @ 100 mls/hr 04/21/20 19:45 04/23/20 00:21 Sodium Chloride 0.9% 1000 Ml IV 05/21/20 19:44 100 mls/hr .Q10H ART Administration Isosorbide Mononitrate 30 mg 04/22/20 10:00 04/23/20 10:21 Imdur 30 Mg PO 05/22/20 09:59 30 mg QAM ART Administration Metformin HCl 1,000 mg 04/22/20 08:00 04/23/20 07:33 Glucophage 500 Mg PO 05/22/20 07:59 1,000 mg BIDWM ART Administration Ondansetron HCl 4 mg 04/21/20 19:43 Zofran 4 Mg/2 Ml Vial IV 05/21/20 19:42 Q6H PRN PRN NAUSEA/VOMITING Oxybutynin Chloride 5 mg 04/22/20 10:00 04/23/20 10:22 Ditropan 5 Mg PO 05/22/20 09:59 5 mg DAILY ART Administration Paroxetine HCl 10 mg 04/22/20 10:00 04/23/20 10:22 Paxil 20 Mg PO 05/22/20 09:59 10 mg DAILY ART Administration Potassium Chloride 10 meq 04/22/20 10:00 04/23/20 10:23 Klor Con 10 Meq PO 05/22/20 09:59 10 meq BID ART Administration Simvastatin 10 mg 04/22/20 22:00 04/22/20 21:42 Zocor 10mg PO 05/22/20 21:59 10 mg HS ART Administration Tamsulosin HCl 0.4 mg 04/22/20 10:00 10/23/20 10:21 Flomax 0.4 Mg PO 05/22/20 09:59 0.4 mg DAILY ART Administration Vitamin E 400 u 04/22/20 10:00 04/23/20 10:23 Vitamin E 400 Unit Softgel PO 05/22/20 09:59 400 u BID ART Administration Discontinued Medications Generic Name Dose Route Start Last Admin Trade Name Freq PRN Reason Stop Dose Admin Acetaminophen 650 mg 04/21/20 19:43 Tylenol 325 Mg PO 05/21/20 19:42 Q4H PRN PRN PAIN, FEVER, HEADACHE Carvedilol 6.25 mg 04/22/20 10:00 Coreg 6.25 Mg PO 05/22/20 09:59 BID ART Sodium Chloride 1,000 mls @ 999 mls/hr 04/21/20 14:22 04/21/20 15:47 Sodium Chloride 0.9% 1000 Ml IV 04/21/20 15:22 Infused .Q1H1M STA Infusion Sodium Chloride Confirm 04/21/20 14:35 Sodium Chloride 0.9% 1000 Ml Administered 04/21/20 14:36 Dose 1,000 mls @ ud .ROUTE .STK-MED ONE Sodium Chloride 1,000 mls @ 100 mls/hr 04/21/20 19:15 04/21/20 19:11 Sodium Chloride 0.9% 1000 Ml IV 05/21/20 19:14 100 mls/hr .Q10H ART Administration Sodium Chloride Confirm 04/21/20 19:08 Sodium Chloride 0.9% 1000 Ml Administered 04/21/20 19:09 Dose 1,000 mls @ ud .ROUTE .STK-MED ONE Metformin HCl 850 mg 04/22/20 08:00 Glucophage 850 Mg PO 05/22/20 07:59 BIDWM ART Ondansetron HCl 4 mg 04/21/20 14:24 04/21/20 14:40 Zofran 4 Mg/2 Ml Vial IV 04/21/20 14:25 4 mg STAT ONE Administration Ondansetron HCl Confirm 04/21/20 14:35 Zofran 4 Mg/2 Ml Vial Administered 04/21/20 14:36 Dose 4 mg .ROUTE .STK-MED ONE Simvastatin Confirm 04/21/20 23:53 Zocor 10mg Administered 04/21/20 23:54 Dose 10 mg .ROUTE .STK-MED ONE Intake & Output (Last 24 hours) 04/20/20 04/21/20 04/22/20 04/23/20 11:59 11:59 11:59 11:59 Intake Total 2260 1140 Output Total 1950 1250 Balance 310 -110 Weight 78 kg 78.3 kg Laboratory Results (Last 24 hours) 04/23/20 04/23/20 04/22/20 11:25 07:18 21:06 POC Glucometer 221 H 195 H 154 H 04/22/20 16:04 POC Glucometer 184 H Orders (Last 24 hours) Category Date Time Status Discharge Routine Discharge 04/23/20 Ordered Discharge/Telephone Order Routine Discharge 04/23/20 Active POCT GLUCOSE Stat Lab 04/22/20 11:06 Completed POCT GLUCOSE Stat Lab 04/22/20 16:04 Completed POCT GLUCOSE Stat Lab 04/22/20 21:06 Completed POCT GLUCOSE Stat Lab 04/23/20 07:18 Completed POCT GLUCOSE Stat Lab 04/23/20 11:25 Completed Simvastatin 10 mg [Zocor 10MG] Med 04/22/20 22:00 Active 10 mg PO HS Patient Care Notes (Last 24 hours) 04/23/20 09:07 Case Management Note by Ekta Tenorio FAXED REFERRAL TO [facility] AT THIS TIME Initialized on 04/23/20 09:07 - END OF NOTE Laboratory Results 04/23/20 04/23/20 04/22/20 Range/Units 11:25 07:18 21:06 WBC (4.0-10.5) K/mm3 RBC (4.1-5.6) M/mm3 Hgb (12.5-18.0) gm/dl Hct (42-50) % MCV (78-100) fl MCH (26-32) pg MCHC (32-36) g/dl RDW (11.5-14.0) % Plt Count (150-450) K/mm3 MPV (7.5-11.0) fl Gran % (36.0-66.0) % Eos # (Auto) (0-0.5) Absolute Lymphs (auto) (1.0-4.6) Absolute Monos (auto) (0.0-1.3) Lymphocytes % (24.0-44.0) % Monocytes % (0.0-12.0) % Eosinophils % (0.00-5.0) % Basophils % (0.0-0.4) % Absolute Granulocytes (1.4-6.9) Basophils # (0-0.4) Sodium (137-145) mmol/L Potassium (3.5-5.1) mmol/L Chloride (98-107) mmol/L Carbon Dioxide (22-30) mmol/L Anion Gap (5-15) MEQ/L BUN (9-20) mg/dL Creatinine (0.66-1.25) mg/dL Estimated GFR ML/MIN Glucose (74-106) mg/dL POC Glucometer 221 H 195 H 154 H (74 to 106) mg/dL Hemoglobin A1c (4.5-6.0) % Calcium (8.4-10.2) mg/dL Magnesium (1.6-2.3) mg/dL Total Bilirubin (0.2-1.3) mg/dL AST (17-59) U/L ALT (0-50) U/L Alkaline Phosphatase (38-126) U/L Troponin I (0.000-0.034) ng/mL NT-Pro-B Natriuret Pep (0-1800) pg/mL Serum Total Protein (6.3-8.2) g/dL Albumin (3.5-5.0) g/dL Urine Color (YELLOW) Urine Appearance (CLEAR) Urine pH (5-6) Ur Specific Vidal (1.005-1.025) Urine Protein (Negative) Urine Ketones (NEGATIVE) Urine Blood (0-5) Wicho/ul Urine Nitrite (NEGATIVE) Urine Bilirubin (NEGATIVE) Urine Urobilinogen (0-1) mg/dL Ur Leukocyte Esterase (NEGATIVE) Urine WBC (Auto) (0-5) /HPF Urine RBC (Auto) (0-2) /HPF U Hyaline Cast (Auto) (0-2) /LPF U Epithel Cells (Auto) (FEW) /HPF Urine Bacteria (Auto) (NEGATIVE) /HPF Urine Mucus (Auto) (NEGATIVE) /HPF Urine Culture Reflexed (NO) Urine Glucose (NEGATIVE) mg/dL 04/22/20 04/22/20 04/22/20 Range/Units 16:04 11:06 07:30 WBC (4.0-10.5) K/mm3 RBC (4.1-5.6) M/mm3 Hgb (12.5-18.0) gm/dl Hct (42-50) % MCV (78-100) fl MCH (26-32) pg MCHC (32-36) g/dl RDW (11.5-14.0) % Plt Count (150-450) K/mm3 MPV (7.5-11.0) fl Gran % (36.0-66.0) % Eos # (Auto) (0-0.5) Absolute Lymphs (auto) (1.0-4.6) Absolute Monos (auto) (0.0-1.3) Lymphocytes % (24.0-44.0) % Monocytes % (0.0-12.0) % Eosinophils % (0.00-5.0) % Basophils % (0.0-0.4) % Absolute Granulocytes (1.4-6.9) Basophils # (0-0.4) Sodium (137-145) mmol/L Potassium (3.5-5.1) mmol/L Chloride (98-107) mmol/L Carbon Dioxide (22-30) mmol/L Anion Gap (5-15) MEQ/L BUN (9-20) mg/dL Creatinine (0.66-1.25) mg/dL Estimated GFR ML/MIN Glucose (74-106) mg/dL POC Glucometer 184 H 198 H (74 to 106) mg/dL Hemoglobin A1c 7.60 H (4.5-6.0) % Calcium (8.4-10.2) mg/dL Magnesium (1.6-2.3) mg/dL Total Bilirubin (0.2-1.3) mg/dL AST (17-59) U/L ALT (0-50) U/L Alkaline Phosphatase (38-126) U/L Troponin I (0.000-0.034) ng/mL NT-Pro-B Natriuret Pep (0-1800) pg/mL Serum Total Protein (6.3-8.2) g/dL Albumin (3.5-5.0) g/dL Urine Color (YELLOW) Urine Appearance (CLEAR) Urine pH (5-6) Ur Specific Vidal (1.005-1.025) Urine Protein (Negative) Urine Ketones (NEGATIVE) Urine Blood (0-5) Wicho/ul Urine Nitrite (NEGATIVE) Urine Bilirubin (NEGATIVE) Urine Urobilinogen (0-1) mg/dL Ur Leukocyte Esterase (NEGATIVE) Urine WBC (Auto) (0-5) /HPF Urine RBC (Auto) (0-2) /HPF U Hyaline Cast (Auto) (0-2) /LPF U Epithel Cells (Auto) (FEW) /HPF Urine Bacteria (Auto) (NEGATIVE) /HPF Urine Mucus (Auto) (NEGATIVE) /HPF Urine Culture Reflexed (NO) Urine Glucose (NEGATIVE) mg/dL 04/22/20 04/22/20 04/22/20 Range/Units 06:51 05:30 00:44 WBC 5.6 (4.0-10.5) K/mm3 RBC 3.00 L (4.1-5.6) M/mm3 Hgb 7.9 L (12.5-18.0) gm/dl Hct 26.3 L (42-50) % MCV 87.7 (78-100) fl MCH 26.3 (26-32) pg MCHC 30.0 L (32-36) g/dl RDW 15.3 H (11.5-14.0) % Plt Count 205 (150-450) K/mm3 MPV 9.9 (7.5-11.0) fl Gran % 60.3 (36.0-66.0) % Eos # (Auto) 0.13 (0-0.5) Absolute Lymphs (auto) 1.44 (1.0-4.6) Absolute Monos (auto) 0.63 (0.0-1.3) Lymphocytes % 25.9 (24.0-44.0) % Monocytes % 11.3 (0.0-12.0) % Eosinophils % 2.3 (0.00-5.0) % Basophils % 0.2 (0.0-0.4) % Absolute Granulocytes 3.36 (1.4-6.9) Basophils # 0.01 (0-0.4) Sodium 136 L (137-145) mmol/L Potassium 4.1 (3.5-5.1) mmol/L Chloride 108 H (98-107) mmol/L Carbon Dioxide 22 (22-30) mmol/L Anion Gap 10.6 (5-15) MEQ/L BUN 20 (9-20) mg/dL Creatinine 1.28 H (0.66-1.25) mg/dL Estimated GFR 56.6 ML/MIN Glucose 150 H (74-106) mg/dL POC Glucometer 150 H (74 to 106) mg/dL Hemoglobin A1c (4.5-6.0) % Calcium 9.5 (8.4-10.2) mg/dL Magnesium (1.6-2.3) mg/dL Total Bilirubin (0.2-1.3) mg/dL AST (17-59) U/L ALT (0-50) U/L Alkaline Phosphatase (38-126) U/L Troponin I (0.000-0.034) ng/mL NT-Pro-B Natriuret Pep (0-1800) pg/mL Serum Total Protein (6.3-8.2) g/dL Albumin (3.5-5.0) g/dL Urine Color (YELLOW) Urine Appearance (CLEAR) Urine pH (5-6) Ur Specific Vidal (1.005-1.025) Urine Protein (Negative) Urine Ketones (NEGATIVE) Urine Blood (0-5) Wicho/ul Urine Nitrite (NEGATIVE) Urine Bilirubin (NEGATIVE) Urine Urobilinogen (0-1) mg/dL Ur Leukocyte Esterase (NEGATIVE) Urine WBC (Auto) (0-5) /HPF Urine RBC (Auto) (0-2) /HPF U Hyaline Cast (Auto) (0-2) /LPF U Epithel Cells (Auto) (FEW) /HPF Urine Bacteria (Auto) (NEGATIVE) /HPF Urine Mucus (Auto) (NEGATIVE) /HPF Urine Culture Reflexed (NO) Urine Glucose (NEGATIVE) mg/dL 04/21/20 04/21/20 04/21/20 Range/Units 21:56 21:00 18:33 WBC (4.0-10.5) K/mm3 RBC (4.1-5.6) M/mm3 Hgb (12.5-18.0) gm/dl Hct (42-50) % MCV (78-100) fl MCH (26-32) pg MCHC (32-36) g/dl RDW (11.5-14.0) % Plt Count (150-450) K/mm3 MPV (7.5-11.0) fl Gran % (36.0-66.0) % Eos # (Auto) (0-0.5) Absolute Lymphs (auto) (1.0-4.6) Absolute Monos (auto) (0.0-1.3) Lymphocytes % (24.0-44.0) % Monocytes % (0.0-12.0) % Eosinophils % (0.00-5.0) % Basophils % (0.0-0.4) % Absolute Granulocytes (1.4-6.9) Basophils # (0-0.4) Sodium (137-145) mmol/L Potassium (3.5-5.1) mmol/L Chloride (98-107) mmol/L Carbon Dioxide (22-30) mmol/L Anion Gap (5-15) MEQ/L BUN (9-20) mg/dL Creatinine (0.66-1.25) mg/dL Estimated GFR ML/MIN Glucose (74-106) mg/dL POC Glucometer 177 H (74 to 106) mg/dL Hemoglobin A1c (4.5-6.0) % Calcium (8.4-10.2) mg/dL Magnesium (1.6-2.3) mg/dL Total Bilirubin (0.2-1.3) mg/dL AST (17-59) U/L ALT (0-50) U/L Alkaline Phosphatase (38-126) U/L Troponin I < 0.012 (0.000-0.034) ng/mL NT-Pro-B Natriuret Pep (0-1800) pg/mL Serum Total Protein (6.3-8.2) g/dL Albumin (3.5-5.0) g/dL Urine Color YELLOW (YELLOW) Urine Appearance CLEAR (CLEAR) Urine pH 5.0 (5-6) Ur Specific Vidal 1.017 (1.005-1.025) Urine Protein NEGATIVE (Negative) Urine Ketones NEGATIVE (NEGATIVE) Urine Blood NEGATIVE (0-5) Wicho/ul Urine Nitrite NEGATIVE (NEGATIVE) Urine Bilirubin NEGATIVE (NEGATIVE) Urine Urobilinogen NEGATIVE (0-1) mg/dL Ur Leukocyte Esterase NEGATIVE (NEGATIVE) Urine WBC (Auto) NONE (0-5) /HPF Urine RBC (Auto) NONE (0-2) /HPF U Hyaline Cast (Auto) 0-2 (0-2) /LPF U Epithel Cells (Auto) NONE (FEW) /HPF Urine Bacteria (Auto) NONE SEEN (NEGATIVE) /HPF Urine Mucus (Auto) SLIGHT (NEGATIVE) /HPF Urine Culture Reflexed NO (NO) Urine Glucose NEGATIVE (NEGATIVE) mg/dL 04/21/20 04/21/20 04/21/20 Range/Units 17:35 14:40 14:40 WBC (4.0-10.5) K/mm3 RBC (4.1-5.6) M/mm3 Hgb (12.5-18.0) gm/dl Hct (42-50) % MCV (78-100) fl MCH (26-32) pg MCHC (32-36) g/dl RDW (11.5-14.0) % Plt Count (150-450) K/mm3 MPV (7.5-11.0) fl Gran % (36.0-66.0) % Eos # (Auto) (0-0.5) Absolute Lymphs (auto) (1.0-4.6) Absolute Monos (auto) (0.0-1.3) Lymphocytes % (24.0-44.0) % Monocytes % (0.0-12.0) % Eosinophils % (0.00-5.0) % Basophils % (0.0-0.4) % Absolute Granulocytes (1.4-6.9) Basophils # (0-0.4) Sodium 137 (137-145) mmol/L Potassium 4.6 (3.5-5.1) mmol/L Chloride 106 (98-107) mmol/L Carbon Dioxide 22 (22-30) mmol/L Anion Gap 13.5 (5-15) MEQ/L BUN 24 H (9-20) mg/dL Creatinine 1.54 H (0.66-1.25) mg/dL Estimated GFR 45.8 ML/MIN Glucose 195 H (74-106) mg/dL POC Glucometer (74 to 106) mg/dL Hemoglobin A1c (4.5-6.0) % Calcium 10.0 (8.4-10.2) mg/dL Magnesium 1.7 (1.6-2.3) mg/dL Total Bilirubin 0.40 (0.2-1.3) mg/dL AST 18 (17-59) U/L ALT 15 (0-50) U/L Alkaline Phosphatase 69 (38-126) U/L Troponin I < 0.012 < 0.012 (0.000-0.034) ng/mL NT-Pro-B Natriuret Pep 183 (0-1800) pg/mL Serum Total Protein 6.0 L (6.3-8.2) g/dL Albumin 3.5 (3.5-5.0) g/dL Urine Color (YELLOW) Urine Appearance (CLEAR) Urine pH (5-6) Ur Specific Vidal (1.005-1.025) Urine Protein (Negative) Urine Ketones (NEGATIVE) Urine Blood (0-5) Wicho/ul Urine Nitrite (NEGATIVE) Urine Bilirubin (NEGATIVE) Urine Urobilinogen (0-1) mg/dL Ur Leukocyte Esterase (NEGATIVE) Urine WBC (Auto) (0-5) /HPF Urine RBC (Auto) (0-2) /HPF U Hyaline Cast (Auto) (0-2) /LPF U Epithel Cells (Auto) (FEW) /HPF Urine Bacteria (Auto) (NEGATIVE) /HPF Urine Mucus (Auto) (NEGATIVE) /HPF Urine Culture Reflexed (NO) Urine Glucose (NEGATIVE) mg/dL 04/21/20 Range/Units 14:40 WBC 7.6 (4.0-10.5) K/mm3 RBC 3.33 L (4.1-5.6) M/mm3 Hgb 8.9 L (12.5-18.0) gm/dl Hct 29.2 L (42-50) % MCV 87.7 (78-100) fl MCH 26.7 (26-32) pg MCHC 30.5 L (32-36) g/dl RDW 15.4 H (11.5-14.0) % Plt Count 236 (150-450) K/mm3 MPV 10.6 (7.5-11.0) fl Gran % 80.4 H (36.0-66.0) % Eos # (Auto) 0.10 (0-0.5) Absolute Lymphs (auto) 0.85 L (1.0-4.6) Absolute Monos (auto) 0.53 (0.0-1.3) Lymphocytes % 11.2 L (24.0-44.0) % Monocytes % 7.0 (0.0-12.0) % Eosinophils % 1.3 (0.00-5.0) % Basophils % 0.1 (0.0-0.4) % Absolute Granulocytes 6.13 (1.4-6.9) Basophils # 0.01 (0-0.4) Sodium (137-145) mmol/L Potassium (3.5-5.1) mmol/L Chloride (98-107) mmol/L Carbon Dioxide (22-30) mmol/L Anion Gap (5-15) MEQ/L BUN (9-20) mg/dL Creatinine (0.66-1.25) mg/dL Estimated GFR ML/MIN Glucose (74-106) mg/dL POC Glucometer (74 to 106) mg/dL Hemoglobin A1c (4.5-6.0) % Calcium (8.4-10.2) mg/dL Magnesium (1.6-2.3) mg/dL Total Bilirubin (0.2-1.3) mg/dL AST (17-59) U/L ALT (0-50) U/L Alkaline Phosphatase (38-126) U/L Troponin I (0.000-0.034) ng/mL NT-Pro-B Natriuret Pep (0-1800) pg/mL Serum Total Protein (6.3-8.2) g/dL Albumin (3.5-5.0) g/dL Urine Color (YELLOW) Urine Appearance (CLEAR) Urine pH (5-6) Ur Specific Vidal (1.005-1.025) Urine Protein (Negative) Urine Ketones (NEGATIVE) Urine Blood (0-5) Wicho/ul Urine Nitrite (NEGATIVE) Urine Bilirubin (NEGATIVE) Urine Urobilinogen (0-1) mg/dL Ur Leukocyte Esterase (NEGATIVE) Urine WBC (Auto) (0-5) /HPF Urine RBC (Auto) (0-2) /HPF U Hyaline Cast (Auto) (0-2) /LPF U Epithel Cells (Auto) (FEW) /HPF Urine Bacteria (Auto) (NEGATIVE) /HPF Urine Mucus (Auto) (NEGATIVE) /HPF Urine Culture Reflexed (NO) Urine Glucose (NEGATIVE) mg/dL - Vitals & Intake/Output Vital Signs: Vital Signs Temperature 98.9 F 04/23/20 07:45 Pulse Rate 67 04/23/20 07:45 Respiratory Rate 18 04/23/20 07:45 Blood Pressure 162/78 04/23/20 07:45 O2 Sat by Pulse Oximetry 94 L 04/23/20 07:45 Intake & Output: Intake & Output 04/20/20 04/21/20 04/22/20 04/23/20 11:59 11:59 11:59 11:59 Intake Total 2260 1140 Output Total 1950 1250 Balance 310 -110 Weight 78 kg 78.3 kg - Lab Result Diagrams: 04/22/20 00:44 04/22/20 05:30 Lab Results-Last 24 Hrs: Lab Results-Last 24 Hours 04/22/20 04/22/20 04/23/20 Range/Units 16:04 21:06 07:18 POC Glucometer 184 H 154 H 195 H (74 to 106) mg/dL 04/23/20 Range/Units 11:25 POC Glucometer 221 H (74 to 106) mg/dL Micro Results-Entire Visit: Accuchecks Date 04/23/20 Date 04/22/20 Time 07:18 Time 16:04 Discharge Exam General Appearance: no apparent distress, alert Neurologic Exam: alert, oriented x 3, cooperative, normal mood/affect, nml cerebellar function, sensation nml, No motor deficits Eye Exam: PERRL, EOMI, eyes nml inspection Ears, Nose, Throat Exam: normal ENT inspection, pharynx normal, moist mucous membranes Neck Exam: normal inspection, non-tender, supple, full range of motion Respiratory Exam: normal breath sounds, lungs clear, No respiratory distress Cardiovascular Exam: regular rate/rhythm, normal heart sounds Gastrointestinal/Abdomen Exam: soft, No tenderness, No mass Male Genitalia Exam: deferred Rectal Exam: deferred Back Exam: normal inspection, normal range of motion, No CVA tenderness, No vertebral tenderness Extremity Exam: normal inspection, normal range of motion Skin Exam: normal color, warm, dry Final Diagnosis/Problem List - Final Discharge Diagnosis/Problem (1) Diarrhea Current Visit: Yes Status: Resolved Code(s): R19.7 - DIARRHEA, UNSPECIFIED (2) Vomiting Current Visit: Yes Status: Resolved Code(s): R11.10 - VOMITING, UNSPECIFIED (3) Weakness Current Visit: Yes Status: Resolved Code(s): R53.1 - WEAKNESS (4) Type 2 diabetes mellitus Current Visit: Yes Status: Chronic - Discharge Discharge Date: 04/23/20 Disposition: HOME HEALTH SERVICE Condition: Stable Prescriptions: Continue Aspirin [Aspir 81] 81 mg PO DAILY Isosorbide Mononitrate 30 mg [Imdur 30 MG] 30 mg PO DAILY Potassium Chloride 10 Meq Tab* [Klor Con 10 MEQ] 10 meq PO BID Pravastatin Sodium 10 mg [Pravachol 10 MG] 10 mg PO HS Carvedilol 6.25 mg [Coreg 6.25 MG] 3.125 mg PO BID Lisinopril/Hydrochlorothiazide [Lisinopril-Hctz 20-25 mg Tab] 20 - 25 mg PO DAILY Clopidogrel Bisulfate 75 mg [PLAVIX 75 MG Tablet] 75 mg PO DAILY Tamsulosin HCl 0.4 mg [Flomax 0.4 MG] 0.4 mg PO DAILY Vitamin E 400 Units [Vitamin E 400 UNIT SOFTGEL] 400 unit PO BID Oxybutynin Chloride [Oxybutynin Chloride ER] 5 mg PO DAILY PARoxetine HCL [Paroxetine HCl] 10 mg PO DAILY Folic Acid 1 mg PO DAILY Vit C/E/Zn/Coppr/Lutein/Zeaxan [Preservision Areds 2 Softgel] 1 cap PO BID Acetaminophen 500 mg [Tylenol Extra Strength 500 mg] 500 - 1,000 mg PO Q6HPRN PRN PRN Reason: Pain And/Or Fever Clopidogrel Bisulfate 75 mg [PLAVIX 75 MG Tablet] 75 mg PO DAILY Empagliflozin/Metformin HCl [Synjardy Xr 25-1,000 mg Tablet] 2 each PO BID Omeprazole 40 mg PO BID Instructions: Dehydration, Adult (DC) Additional Instructions: WILL ARRANGE FOR HOME HEALTHCARE THRU [facility]. THEIR PHONE NUMBER IS [phone]. THEY SHOULD BE MAKING CONTACT WITH YOU 1-2 DAYS AFTER DISCHARGE Follow up with: TIMOTHY PONCE MD [Primary Care Provider] - 04/29/20 10:00 am (at [facility])
[2020-04-23 11:57] VITALS: BP 158/77; PULSE 73; O2SAT 97
== END 2020-04-23 12:10 | disposition home health service (06) ==
LOC: ED 13:36 → MED SURG 19:29
PROVIDERS: ADMIT General Practice; ATTEND General Practice
DX: R19.7 Diarrhea, unspecified (principal); R11.10 Vomiting, unspecified; R53.1 Weakness; E11.9 Type 2 diabetes mellitus without complications; Z79.01 Long term (current) use of anticoagulants; Z79.899 Other long term (current) drug therapy; W19.XXXA Unspecified fall, initial encounter; Z86.73 Personal history of transient ischemic attack (TIA), and cerebral infarction without residual deficits
CPT/HCPCS: 36000; 36415; 80048; 80053; 81001; 82962; 83036; 83735; 83880; 84484; 85025; 93005; 93041; 94760; 96360; 96365; 96374; 96375; 96376; 99285; G0378; J2405; A9270-GY

== ENCOUNTER 2020-07-14 08:31 | Day surgery (SDC) | payer MEDICARE ==
[2020-07-14] MEDS ORDERED: Depo-Medrol 40 MG/ML IM ONE (08:32)
[2020-07-14] MEDS ORDERED: BUPIVACAINE 0.5% VIAL IJ ONE (08:32)
[2020-07-14] MEDS ORDERED: Ketamine HCl 50 MG/ML ONE (10:37)
[2020-07-14] MEDS ORDERED: DIPRIVAN 200 MG/20 ML IV ONE (10:37)
--- NOTE | 2020-07-14 12:20 | XRAY ---
Indication: Right shoulder articular and subacromial bursal injections. Intraoperative fluoroscopy was provided for 29 seconds. 2 digital spot images submitted for interpretation demonstrates needle tip projecting over the right glenohumeral joint superiorly. Second needle tip projects subacromial. Small amount of contrast injected for both needle tip placement. Correlate with intraoperative findings/report.
--- NOTE | 2020-07-14 12:29 | XRAY ---
29 seconds fluoroscopy time in surgery for right intra-articular and subachromial bursa injections.
[2020-07-14] MEDS ORDERED: Lactated Ringers 1,000 ML IV ONE (15:26)
== END 2020-07-14 11:06 | disposition home or self-care (01) ==
LOC: SDC 08:31 → SDC-PAIN 08:31
PROVIDERS: ATTEND Psychiatry & Neurology Pain Medicine
DX: M19.011 Primary osteoarthritis, right shoulder (principal); M75.51 Bursitis of right shoulder; E11.9 Type 2 diabetes mellitus without complications; I10 Essential (primary) hypertension; Z79.899 Other long term (current) drug therapy
CPT/HCPCS: 73030; 77002; 82947; J1030; J2704

== ENCOUNTER 2020-08-01 14:50 | Observation (INO) | payer MEDICARE ==
[2020-08-01] MEDS ORDERED: Sodium Chloride 0.9% 1000 ML 1,000 ML IV STA (15:19)
--- NOTE | 2020-08-01 15:25 | ERPHSYRPT ---
- History of Present Illness Time Seen by Provider: 08/01/20 15:22 Source: patient Exam Limitations: no limitations Patient Subjective Stated Complaint: diarrhea Triage Nursing Assessment: Patient brought into ED via EMS and transferred to bed with assist of 3. Patient A+O x3. Patient's skin pink, warm and dry. Patient complains of 4 episodes of diarrhea today. Patient states he also feels weak. Patient reports non productive cough, occasional Headache and fatigue. Patient denies pain or discomfort. lungs clear a/p booker. Abdomen soft and round with BS X 4. Physician History: Patient is 85-year-old male with significant past medical history of diabetes hypertension osteoarthritis started having diarrhea x4 for last 2 to 3 days. Patient states that it is not watery but it is in large amount and due to that he has become incontinent he went cannot reach to the bathroom before he has a bowel movement and with soils his underpants. He denies any abdominal pain nausea vomiting fever chills. Timing/Duration: yesterday Associated Symptoms: cough, weakness Allergies/Adverse Reactions: No Known Drug Allergies Allergy (Verified 08/01/20 15:18) Home Medications: Aspirin [Aspir 81] 81 mg PO DAILY 07/23/12 [History] Isosorbide Mononitrate 30 mg [Imdur 30 MG] 30 mg PO DAILY 09/21/12 [History] Potassium Chloride 10 Meq Tab* [Klor Con 10 MEQ] 10 meq PO BID 09/21/12 [History] Pravastatin Sodium 10 mg [Pravachol 10 MG] 10 mg PO HS 09/21/12 [History] Carvedilol 6.25 mg [Coreg 6.25 MG] 3.125 mg PO BID 02/04/15 [History] Clopidogrel Bisulfate 75 mg [PLAVIX 75 MG Tablet] 75 mg PO DAILY 02/04/15 [History] Lisinopril/Hydrochlorothiazide [Lisinopril-Hctz 20-25 mg Tab] 20 - 25 mg PO DAILY 02/04/15 [History] Tamsulosin HCl 0.4 mg [Flomax 0.4 MG] 0.4 mg PO DAILY 08/08/17 [History] Acetaminophen 500 mg [Tylenol Extra Strength 500 mg] 500 - 1,000 mg PO Q6HPRN PRN 07/28/19 [History] Folic Acid 1 mg PO DAILY 07/28/19 [History] Oxybutynin Chloride [Oxybutynin Chloride ER] 5 mg PO DAILY 07/28/19 [History] PARoxetine HCL [Paroxetine HCl] 10 mg PO DAILY 07/28/19 [History] Vit C/E/Zn/Coppr/Lutein/Zeaxan [Preservision Areds 2 Softgel] 1 cap PO BID 07/28/19 [History] Vitamin E 400 Units [Vitamin E 400 UNIT SOFTGEL] 400 unit PO BID 07/28/19 [History] Clopidogrel Bisulfate 75 mg [PLAVIX 75 MG Tablet] 75 mg PO DAILY 04/21/20 [History] Empagliflozin/Metformin HCl [Synjardy Xr 25-1,000 mg Tablet] 2 each PO BID 04/21/20 [History] Omeprazole 40 mg PO BID 04/22/20 [History] Hx Tetanus, Diphtheria Vaccination/Date Given: Yes Hx Influenza Vaccination/Date Given: Yes Hx Pneumococcal Vaccination/Date Given: Yes Immunizations Up to Date: Yes Travel Risk - International Travel Have you traveled outside of the country in past 3 weeks: No - Coronavirus Screening Are you exhibiting any of the following symptoms?: No Symptoms: Vomiting/Diarrhea, Headaches/Body Aches/Fatigue Close contact with a COVID-19 positive Pt in past 14-21 Days: No - Review of Systems Constitutional: No Fever, No Chills Eyes: No Symptoms Ears, Nose, & Throat: No Symptoms Respiratory: No Cough, No Dyspnea Cardiac: No Chest Pain, No Edema, No Syncope Abdominal/Gastrointestinal: Diarrhea, No Abdominal Pain, No Nausea, No Vomiting Genitourinary Symptoms: No Dysuria Musculoskeletal: No Back Pain, No Neck Pain Skin: No Rash Neurological: No Dizziness, No Focal Weakness, No Sensory Changes Psychological: No Symptoms Endocrine: No Symptoms All Other Systems: Reviewed and Negative - Past Medical History Pertinent Past Medical History: Yes Neurological History: TIA ENT History: No Pertinent History Cardiac History: Hypertension Respiratory History: No Pertinent History Endocrine Medical History: Diabetes Type II Musculoskeletal History: Arthritis GI Medical History: GI Bleed History: No Pertinent History Psycho-Social History: No Pertinent History Male Reproductive Disorders: No Pertinent History - Past Surgical History Past Surgical History: Yes Neuro Surgical History: No Pertinent History Cardiac: Cardiac Stent Respiratory: No Pertinent History Gastrointestinal: Hernia Repair Genitourinary: No Pertinent History Musculoskeletal: Orthopedic Surgery Male Surgical History: No Pertinent History Other Surgical History: Nasal surgery - Social History Smoking Status: Never smoker Exposure to second hand smoke: No Drug Use: none Patient Lives Alone: Yes Significant Family History: no pertinent family hx - Nursing Vital Signs Nursing Vital Signs: Initial Vital Signs Temperature 98.0 F 08/01/20 14:58 Pulse Rate 61 08/01/20 14:58 Respiratory Rate 18 08/01/20 14:58 Blood Pressure 116/57 08/01/20 14:58 O2 Sat by Pulse Oximetry 99 08/01/20 14:58 Pain Scale Pain Intensity 0 - Physical Exam General Appearance: no apparent distress, alert Eye Exam: PERRL/EOMI, eyes nml inspection Ears, Nose, Throat Exam: normal ENT inspection, TMs normal, pharynx normal, moist mucous membranes Neck Exam: normal inspection, non-tender, supple, full range of motion Respiratory Exam: normal breath sounds, lungs clear, No respiratory distress Cardiovascular Exam: regular rate/rhythm, normal heart sounds, normal peripheral pulses Gastrointestinal/Abdomen Exam: soft, normal bowel sounds, No tenderness, No mass Back Exam: normal inspection, normal range of motion, No CVA tenderness, No vertebral tenderness Extremity Exam: normal inspection, normal range of motion, pelvis stable Neurologic Exam: alert, oriented x 3, cooperative, normal mood/affect, nml cerebellar function, nml station & gait, sensation nml, No motor deficits Skin Exam: normal color, warm, dry, No rash Lymphatic Exam: No adenopathy SpO2: 99 - Course Nursing assessment & vital signs reviewed: Yes Ordered Tests: Active Orders 24 hr Category Date Time Status AMYLASE Stat Lab 08/01/20 15:51 Completed CBC W DIFF Stat Lab 08/01/20 15:51 Completed CMP Stat Lab 08/01/20 15:51 Completed LIPASE Stat Lab 08/01/20 15:51 Completed Lactic Acid Stat Lab 08/01/20 15:19 Completed UA W/RFX UR CULTURE Stat Lab 08/01/20 15:19 Ordered Medication Summary Discontinued Medications Generic Name Dose Route Start Last Admin Trade Name Freq PRN Reason Stop Dose Admin Sodium Chloride 1,000 mls @ 999 mls/hr 08/01/20 15:19 08/01/20 15:28 Sodium Chloride 0.9% 1000 Ml IV 08/01/20 16:19 999 mls/hr .Q1H1M STA Administration Sodium Chloride Confirm 08/01/20 15:26 Sodium Chloride 0.9% 1000 Ml Administered 08/01/20 15:27 Dose 1,000 mls @ ud .ROUTE .STK-MED ONE Lab/Rad Data: Laboratory Result Diagrams 08/01/20 15:51 08/01/20 15:51 Laboratory Results 08/01/20 08/01/20 08/01/20 Range/Units 15:51 15:51 15:19 WBC 7.5 (4.0-10.5) K/mm3 RBC 3.30 L (4.1-5.6) M/mm3 Hgb 7.5 L (12.5-18.0) gm/dl Hct 26.2 L (42-50) % MCV 79.4 (78-100) fl MCH 22.7 L (26-32) pg MCHC 28.6 L (32-36) g/dl RDW 16.8 H (11.5-14.0) % Plt Count 279 (150-450) K/mm3 MPV 10.2 (7.5-11.0) fl Gran % 80.2 H (36.0-66.0) % Eos # (Auto) 0.14 (0-0.5) Absolute Lymphs (auto) 0.81 L (1.0-4.6) Absolute Monos (auto) 0.51 (0.0-1.3) Lymphocytes % 10.8 L (24.0-44.0) % Monocytes % 6.8 (0.0-12.0) % Eosinophils % 1.9 (0.00-5.0) % Basophils % 0.3 (0.0-0.4) % Absolute Granulocytes 6.05 (1.4-6.9) Basophils # 0.02 (0-0.4) Sodium 136 L (137-145) mmol/L Potassium 4.4 (3.5-5.1) mmol/L Chloride 106 (98-107) mmol/L Carbon Dioxide 22 (22-30) mmol/L Anion Gap 12.2 (5-15) MEQ/L BUN 25 H (9-20) mg/dL Creatinine 1.54 H (0.66-1.25) mg/dL Estimated GFR 45.8 ML/MIN Glucose 249 H (74-106) mg/dL Lactic Acid 3.2 H (0.4-2.0) Calcium 10.0 (8.4-10.2) mg/dL Total Bilirubin 0.40 (0.2-1.3) mg/dL AST 18 (17-59) U/L ALT 15 (0-50) U/L Alkaline Phosphatase 64 (38-126) U/L Serum Total Protein 5.9 L (6.3-8.2) g/dL Albumin 3.4 L (3.5-5.0) g/dL Amylase 53 (30-110) U/L Lipase 120 (23-300) U/L - Progress Progress: unchanged Discussed with : Devan Will see patient in: hospital (observation) Counseled pt/family regarding: lab results, diagnosis, need for follow-up - Departure Departure Disposition: Observation Clinical Impression: Acute on chronic renal failure Qualifiers: Acute renal failure type: unspecified Chronic kidney disease stage: stage 3 (moderate) Chronic kidney disease stage 3 subtype: stage 3b (GFR 30-44) Qualified Code(s): N17.9 - Acute kidney failure, unspecified; N18.32 - Chronic kidney disease, stage 3b Anemia Qualifiers: Anemia type: due to chronic kidney disease Chronic kidney disease stage: stage 3 (moderate) Chronic kidney disease stage 3 subtype: stage 3b (GFR 30-44) Qualified Code(s): N18.32 - Chronic kidney disease, stage 3b; D63.1 - Anemia in chronic kidney disease Type 2 diabetes mellitus Qualifiers: Diabetes mellitus mcc insulin use: without mcc use Diabetes mellitus complication status: with kidney complications Diabetes mellitus complication detail: with chronic kidney disease Chronic kidney disease stage: stage 3 (moderate) Chronic kidney disease stage 3 subtype: stage 3b (GFR 30-44) Qualified Code(s): E11.22 - Type 2 diabetes mellitus with diabetic chronic kidney disease; N18.32 - Chronic kidney disease, stage 3b Hypertension Qualifiers: Hypertension type: essential hypertension Qualified Code(s): I10 - Essential (primary) hypertension Condition: Fair Critical Care Time: Yes Critical Care Time(excluding separately billable procedures): Critical 30-74 mins Referrals: TIMOTHY PONCE MD [Primary Care Provider] -
[2020-08-01] MEDS ORDERED: Sodium Chloride 0.9% 1000 ML 1,000 ML ONE (15:26)
[2020-08-01 15:53] LABS: Absolute Neutrophil Ct (ANC) 6.05 (1.4-6.9); BASOPHIL % 0.3 % (0.0-0.4); Basophil (Absolute #) 0.02 (0-0.4); Eosinophil % 1.9 % (0.00-5.0); Eosinophil (Absolute #) 0.14 (0-0.5); Hematocrit 26.2 % (42-50); Hemoglobin 7.5 gm/dl (12.5-18.0); Lymphocyte (Absolute #) 0.81 (1.0-4.6); Lymphocytes % 10.8 % (24.0-44.0); Mean Cell Volume 79.4 fl (78-100); Mean Corpuscular Hemoglobin 22.7 pg (26-32); Mean Corpuscular Hgb Concent. 28.6 g/dl (32-36); Mean Platelet Volume 10.2 fl (7.5-11.0); Monocyte (Absolute #) 0.51 (0.0-1.3); Monocytes % 6.8 % (0.0-12.0); Neutrophil % 80.2 % (36.0-66.0); Platelet Count 279 K/mm3 (150-450); Red Cell Distribution Width 16.8 % (11.5-14.0); White Blood Count 7.5 K/mm3 (4.0-10.5)
[2020-08-01 16:11] LABS: ALBUMIN 3.4 g/dL (3.5-5.0); ANION GAP 12.2 MEQ/L (5-15); BILIRUBIN,TOTAL 0.4 mg/dL (0.2-1.3); Creatinine 1 1.54 mg/dL (0.66-1.25); EST GLOMERULAR FILTRATION RATE 45.8 ML/MIN; Potassium 4.4 mmol/L (3.5-5.1); Total Protein 5.9 g/dL (6.3-8.2)
[2020-08-01] MEDS ORDERED: HUMALOG SQ PRN (18:00)
[2020-08-01] MEDS ORDERED: MORPHINE SULFATE 2 MG INJ IV PRN (18:00)
[2020-08-01] MEDS: Sodium Chloride 0.9% 1000 ML 1,000 ML IV SCH (19:07)
[2020-08-01 19:34] LABS: Appearance CLEAR (CLEAR); Bilirubin NEGATIVE (NEGATIVE); Blood NEGATIVE Ery/ul (0-5); Glucose 150 mg/dL (NEGATIVE); Hyaline Casts 0-2 /LPF (0-2); Ketones NEGATIVE (NEGATIVE); Leukocyte Esterase NEGATIVE (NEGATIVE); Mucus SLIGHT /HPF (NEGATIVE); Nitrite NEGATIVE (NEGATIVE); Protein,Urine Dip NEGATIVE (Negative); Specific Gravity 1.015 (1.005-1.025); Urobilinogen NEGATIVE mg/dL (0-1)
[2020-08-01] MEDS: Zocor 10MG PO SCH (21:03)
[2020-08-01] MEDS: Protonix 40MG Tablet PO SCH (21:03)
[2020-08-01] MEDS: Klor Con 10 MEQ PO SCH (21:03)
[2020-08-01] MEDS: Coreg 3.125 MG PO SCH (21:03)
[2020-08-01] MEDS: Glucophage 500 MG PO SCH (21:17)
[2020-08-01 21:43] LABS: Slide Review 1 YES
[2020-08-02 05:11] LABS: Absolute Neutrophil Ct (ANC) 3.36 (1.4-6.9); BASOPHIL % 0.2 % (0.0-0.4); Basophil (Absolute #) 0.01 (0-0.4); Eosinophil % 3.1 % (0.00-5.0); Eosinophil (Absolute #) 0.17 (0-0.5); Hematocrit 24.6 % (42-50); Lymphocyte (Absolute #) 1.34 (1.0-4.6); Lymphocytes % 24.1 % (24.0-44.0); Mean Cell Volume 79.9 fl (78-100); Mean Corpuscular Hemoglobin 22.1 pg (26-32); Mean Corpuscular Hgb Concent. 27.6 g/dl (32-36); Mean Platelet Volume 10.3 fl (7.5-11.0); Monocyte (Absolute #) 0.67 (0.0-1.3); Monocytes % 12.1 % (0.0-12.0); Neutrophil % 60.5 % (36.0-66.0); Platelet Count 272 K/mm3 (150-450); Red Blood Count 3.08 M/mm3 (4.1-5.6); Red Cell Distribution Width 16.8 % (11.5-14.0); White Blood Count 5.6 K/mm3 (4.0-10.5)
[2020-08-02] MEDS: Sodium Chloride 0.9% 1000 ML 1,000 ML IV SCH ×2 (05:16→13:46)
[2020-08-02 05:40] LABS: ALBUMIN 3.2 g/dL (3.5-5.0); ANION GAP 10.3 MEQ/L (5-15); BILIRUBIN,TOTAL 0.2 mg/dL (0.2-1.3); Calcium 9.6 mg/dL (8.4-10.2); Creatinine 1 1.32 mg/dL (0.66-1.25); EST GLOMERULAR FILTRATION RATE 54.7 ML/MIN; Potassium 4.1 mmol/L (3.5-5.1); Total Protein 5.6 g/dL (6.3-8.2)
[2020-08-02 05:43] LABS: Hemoglobin 6.8 gm/dl (12.5-18.0)
[2020-08-02 06:43] LABS: Slide Review 1 YES
[2020-08-02] MEDS ORDERED: TYLENOL EXTRA STRENGTH 500 MG PO PRN (07:20)
[2020-08-02] MEDS: Glucophage 500 MG PO SCH ×2 (08:08→17:30)
[2020-08-02] MEDS: Amaryl 2 MG PO SCH (08:08)
[2020-08-02] MEDS: hydroDIURIL 25 MG PO SCH (09:38)
[2020-08-02] MEDS: Klor Con 10 MEQ PO SCH ×2 (09:38→21:14)
[2020-08-02] MEDS: Imdur 30 MG PO SCH (09:38)
[2020-08-02] MEDS: ECOTRIN 81 MG PO SCH (09:38)
[2020-08-02] MEDS: Ditropan XL 5 MG PO SCH (09:38)
[2020-08-02] MEDS: PLAVIX 75 MG Tablet PO SCH (09:38)
[2020-08-02] MEDS: Protonix 40MG Tablet PO SCH ×2 (09:39→21:14)
[2020-08-02] MEDS: Coreg 3.125 MG PO SCH ×2 (09:39→21:14)
[2020-08-02] MEDS: Flomax 0.4 MG PO SCH (09:39)
[2020-08-02] MEDS: Zestril 20 MG PO SCH (09:39)
[2020-08-02] MEDS: Paxil 20 MG PO SCH (09:40)
[2020-08-02] MEDS: FOLATE 1 MG PO SCH (09:41)
[2020-08-02] MEDS: Vitamin E 400 UNIT SOFTGEL PO SCH (09:41)
[2020-08-02] MEDS ORDERED: HYDROCHLOROTHIAZIDE PO SCH (10:00)
[2020-08-02] MEDS ORDERED: LISINOPRIL PO SCH (10:00)
[2020-08-02] MEDS ORDERED: VITAMIN E 100 UNIT PO SCH (10:00)
[2020-08-02] MEDS ORDERED: NON-FORMULARY ITEM (Paroxetine Hcl [Paroxetine Hcl] 10 MG) PO SCH (10:00)
[2020-08-02] MEDS ORDERED: FOLIC ACID 1 MG PO SCH (10:00)
--- NOTE | 2020-08-02 10:31 | PCM.HP ---
History of Present Illness - Chief Complaint Chief Complaint: c/o diarrhea and weakness for 3 days History of Present Illness: is a 85 year old male. with significant past medical history of diabetes hypertension osteoarthritis started having diarrhea x4 for last 2 to 3 days. Patient states that it is not watery but it is in large amount and due to that he has become incontinent he went cannot reach to the bathroom before he has a bowel movement and with soils his underpants. He denies any abdominal pain nausea vomiting fever chills. - Review of Systems Constitutional: Lethargy, Malaise, Weakness, No Fever, No Chills Eyes: No Symptoms Ears, Nose, & Throat: No Symptoms Respiratory: No Cough, No Short Of Breath Cardiac: No Chest Pain, No Edema, No Syncope Abdominal/Gastrointestinal: Diarrhea, No Abdominal Pain, No Nausea, No Vomiting Genitourinary Symptoms: No Dysuria Musculoskeletal: No Back Pain, No Neck Pain Skin: No Rash Neurological: No Dizziness, No Focal Weakness, No Sensory Changes Psychological: No Symptoms Endocrine: No Symptoms Hematologic/Lymphatic: No Symptoms Immunological/Allergic: No Symptoms Medications & Allergies Home Medications: Home Medication List Aspirin [Aspir 81] 81 mg PO DAILY 07/23/12 [History Confirmed 08/01/20] Isosorbide Mononitrate 30 mg [Imdur 30 MG] 30 mg PO DAILY 09/21/12 [History Confirmed 08/01/20] Potassium Chloride 10 Meq Tab* [Klor Con 10 MEQ] 10 meq PO BID 09/21/12 [History Confirmed 08/01/20] Pravastatin Sodium 10 mg [Pravachol 10 MG] 10 mg PO HS 09/21/12 [History Confirmed 08/01/20] Carvedilol 6.25 mg [Coreg 6.25 MG] 3.125 mg PO BID 02/04/15 [History Confirmed 08/01/20] Lisinopril/Hydrochlorothiazide [Lisinopril-Hctz 20-25 mg Tab] 20 - 25 mg PO DAILY 02/04/15 [History Confirmed 08/01/20] Tamsulosin HCl 0.4 mg [Flomax 0.4 MG] 0.4 mg PO DAILY 08/08/17 [History Confirmed 08/01/20] Acetaminophen 500 mg [Tylenol Extra Strength 500 mg] 500 - 1,000 mg PO Q6HPRN PRN 07/28/19 [History Confirmed 08/01/20] Folic Acid 1 mg PO DAILY 07/28/19 [History Confirmed 08/01/20] Oxybutynin Chloride [Oxybutynin Chloride ER] 5 mg PO DAILY 07/28/19 [History Confirmed 08/01/20] PARoxetine HCL [Paroxetine HCl] 10 mg PO DAILY 07/28/19 [History Confirmed 08/01/20] Clopidogrel Bisulfate 75 mg [PLAVIX 75 MG Tablet] 75 mg PO DAILY 04/21/20 [History Confirmed 08/01/20] Omeprazole 40 mg PO BID 04/22/20 [History Confirmed 08/01/20] Glimepiride 2 mg [Amaryl 2 MG] 2 mg PO DAILY 08/01/20 [History Confirmed 08/01/20] Metformin HCl [Glucophage] 1,000 mg PO BID 08/01/20 [History Confirmed 08/01/20] Vitamin E 100 unit PO BID 08/01/20 [History Confirmed 08/01/20] Allergies/Adverse Reactions: Allergies Allergy/AdvReac Type Severity Reaction Status Date / Time No Known Drug Allergies Allergy Verified 08/01/20 15:18 - Past Medical History Past Medical History: Yes Neurological History: TIA ENT History: No Pertinent History Cardiac History: Coronary Artery Disease, Hypertension Respiratory History: No Pertinent History Endocrine Medical History: Diabetes Type II Musculoskelatal History: Arthritis GI Medical History: GI Bleed History: No Pertinent History Pyscho-Social History: No Pertinent History Male Reproductive Disorders: No Pertinent History - Past Surgical History Past Surgical History: Yes Neuro Surgical History: No Pertinent History Cardiac History: Cardiac Catheterization, Cardiac Stent Respiratory Surgery: No Pertinent History GI Surgical History: Hernia Repair Genitourinary Surgical Hx: No Pertinent History Musculskeletal Surgical Hx: Orthopedic Surgery Male Surgical History: No Pertinent History Other Surgical History: Nasal surgery - Social History Smoking Status: Former smoker Exposure to second hand smoke: No Alcohol: None Drug Use: none Significant Family History: no pertinent family hx - Physical Exam Vital Signs: Vital Signs - 24 hr Temp Pulse Resp BP Pulse Ox 08/02/20 07:47 99.0 F 70 20 153/68 97 08/02/20 04:00 99.0 F 72 22 137/66 96 08/02/20 00:00 98.2 F 73 16 162/70 96 08/01/20 20:00 97.8 F 71 15 114/55 95 08/01/20 18:42 97.8 F 71 15 114/55 95 08/01/20 17:02 70 14 130/59 95 08/01/20 16:38 99 08/01/20 16:22 73 24 123/62 99 08/01/20 14:58 98.0 F 61 18 116/57 99 General Appearance: no apparent distress, alert Neurologic Exam: alert, oriented x 3, cooperative, normal mood/affect, nml cerebellar function, nml station & gait, sensation nml, No motor deficits Eye Exam: PERRL/EOMI, eyes nml inspection Ears, Nose, Throat Exam: normal ENT inspection, TMs normal, pharynx normal, moist mucous membranes Neck Exam: normal inspection, non-tender, supple, full range of motion Respiratory Exam: normal breath sounds, lungs clear, No respiratory distress Cardiovascular Exam: regular rate/rhythm, normal heart sounds, normal peripheral pulses Gastrointestinal/Abdomen Exam: soft, normal bowel sounds, No tenderness, No mass Back Exam: normal inspection, normal range of motion, No CVA tenderness, No vertebral tenderness Extremity Exam: normal inspection, normal range of motion, pelvis stable Skin Exam: normal color, warm, dry, No rash Lymphatic Exam: No adenopathy Results - Labs Lab/Micro Results: Lab Results-Last 24 Hours 08/01/20 08/01/20 08/01/20 Range/Units 15:19 15:51 15:51 WBC 7.5 (4.0-10.5) K/mm3 RBC 3.30 L (4.1-5.6) M/mm3 Hgb 7.5 L (12.5-18.0) gm/dl Hct 26.2 L (42-50) % MCV 79.4 (78-100) fl MCH 22.7 L (26-32) pg MCHC 28.6 L (32-36) g/dl RDW 16.8 H (11.5-14.0) % Plt Count 279 (150-450) K/mm3 MPV 10.2 (7.5-11.0) fl Gran % 80.2 H (36.0-66.0) % Eos # (Auto) 0.14 (0-0.5) Absolute Lymphs (auto) 0.81 L (1.0-4.6) Absolute Monos (auto) 0.51 (0.0-1.3) Lymphocytes % 10.8 L (24.0-44.0) % Monocytes % 6.8 (0.0-12.0) % Eosinophils % 1.9 (0.00-5.0) % Basophils % 0.3 (0.0-0.4) % Absolute Granulocytes 6.05 (1.4-6.9) Basophils # 0.02 (0-0.4) Sodium 136 L (137-145) mmol/L Potassium 4.4 (3.5-5.1) mmol/L Chloride 106 (98-107) mmol/L Carbon Dioxide 22 (22-30) mmol/L Anion Gap 12.2 (5-15) MEQ/L BUN 25 H (9-20) mg/dL Creatinine 1.54 H (0.66-1.25) mg/dL Estimated GFR 45.8 ML/MIN Glucose 249 H (74-106) mg/dL POC Glucometer (74 to 106) mg/dL Hemoglobin A1c (4.5-6.0) % Lactic Acid 3.2 H (0.4-2.0) Calcium 10.0 (8.4-10.2) mg/dL Total Bilirubin 0.40 (0.2-1.3) mg/dL AST 18 (17-59) U/L ALT 15 (0-50) U/L Alkaline Phosphatase 64 (38-126) U/L Serum Total Protein 5.9 L (6.3-8.2) g/dL Albumin 3.4 L (3.5-5.0) g/dL Amylase 53 (30-110) U/L Lipase 120 (23-300) U/L Urine Color (YELLOW) Urine Appearance (CLEAR) Urine pH (5-6) Ur Specific Mobile (1.005-1.025) Urine Protein (Negative) Urine Ketones (NEGATIVE) Urine Blood (0-5) Wicho/ul Urine Nitrite (NEGATIVE) Urine Bilirubin (NEGATIVE) Urine Urobilinogen (0-1) mg/dL Ur Leukocyte Esterase (NEGATIVE) Urine WBC (Auto) (0-5) /HPF Urine RBC (Auto) (0-2) /HPF U Hyaline Cast (Auto) (0-2) /LPF U Epithel Cells (Auto) (FEW) /HPF Urine Bacteria (Auto) (NEGATIVE) /HPF Urine Mucus (Auto) (NEGATIVE) /HPF Urine Culture Reflexed (NO) Urine Glucose (NEGATIVE) mg/dL SARS-CoV-2 (PCR) (NEGATIVE) Slides for Path Review YES 08/01/20 08/01/20 08/01/20 Range/Units 16:41 17:45 18:20 WBC (4.0-10.5) K/mm3 RBC (4.1-5.6) M/mm3 Hgb (12.5-18.0) gm/dl Hct (42-50) % MCV (78-100) fl MCH (26-32) pg MCHC (32-36) g/dl RDW (11.5-14.0) % Plt Count (150-450) K/mm3 MPV (7.5-11.0) fl Gran % (36.0-66.0) % Eos # (Auto) (0-0.5) Absolute Lymphs (auto) (1.0-4.6) Absolute Monos (auto) (0.0-1.3) Lymphocytes % (24.0-44.0) % Monocytes % (0.0-12.0) % Eosinophils % (0.00-5.0) % Basophils % (0.0-0.4) % Absolute Granulocytes (1.4-6.9) Basophils # (0-0.4) Sodium (137-145) mmol/L Potassium (3.5-5.1) mmol/L Chloride (98-107) mmol/L Carbon Dioxide (22-30) mmol/L Anion Gap (5-15) MEQ/L BUN (9-20) mg/dL Creatinine (0.66-1.25) mg/dL Estimated GFR ML/MIN Glucose (74-106) mg/dL POC Glucometer (74 to 106) mg/dL Hemoglobin A1c 8.07 H (4.5-6.0) % Lactic Acid 1.6 (0.4-2.0) Calcium (8.4-10.2) mg/dL Total Bilirubin (0.2-1.3) mg/dL AST (17-59) U/L ALT (0-50) U/L Alkaline Phosphatase (38-126) U/L Serum Total Protein (6.3-8.2) g/dL Albumin (3.5-5.0) g/dL Amylase (30-110) U/L Lipase (23-300) U/L Urine Color (YELLOW) Urine Appearance (CLEAR) Urine pH (5-6) Ur Specific Mobile (1.005-1.025) Urine Protein (Negative) Urine Ketones (NEGATIVE) Urine Blood (0-5) Wicho/ul Urine Nitrite (NEGATIVE) Urine Bilirubin (NEGATIVE) Urine Urobilinogen (0-1) mg/dL Ur Leukocyte Esterase (NEGATIVE) Urine WBC (Auto) (0-5) /HPF Urine RBC (Auto) (0-2) /HPF U Hyaline Cast (Auto) (0-2) /LPF U Epithel Cells (Auto) (FEW) /HPF Urine Bacteria (Auto) (NEGATIVE) /HPF Urine Mucus (Auto) (NEGATIVE) /HPF Urine Culture Reflexed (NO) Urine Glucose (NEGATIVE) mg/dL SARS-CoV-2 (PCR) NEGATIVE (NEGATIVE) Slides for Path Review 08/01/20 08/01/20 08/02/20 Range/Units 19:11 21:18 04:20 WBC 5.6 (4.0-10.5) K/mm3 RBC 3.08 L (4.1-5.6) M/mm3 Hgb 6.8 L* (12.5-18.0) gm/dl Hct 24.6 L (42-50) % MCV 79.9 (78-100) fl MCH 22.1 L (26-32) pg MCHC 27.6 L (32-36) g/dl RDW 16.8 H (11.5-14.0) % Plt Count 272 (150-450) K/mm3 MPV 10.3 (7.5-11.0) fl Gran % 60.5 (36.0-66.0) % Eos # (Auto) 0.17 (0-0.5) Absolute Lymphs (auto) 1.34 (1.0-4.6) Absolute Monos (auto) 0.67 (0.0-1.3) Lymphocytes % 24.1 (24.0-44.0) % Monocytes % 12.1 H (0.0-12.0) % Eosinophils % 3.1 (0.00-5.0) % Basophils % 0.2 (0.0-0.4) % Absolute Granulocytes 3.36 (1.4-6.9) Basophils # 0.01 (0-0.4) Sodium (137-145) mmol/L Potassium (3.5-5.1) mmol/L Chloride (98-107) mmol/L Carbon Dioxide (22-30) mmol/L Anion Gap (5-15) MEQ/L BUN (9-20) mg/dL Creatinine (0.66-1.25) mg/dL Estimated GFR ML/MIN Glucose (74-106) mg/dL POC Glucometer 206 H (74 to 106) mg/dL Hemoglobin A1c (4.5-6.0) % Lactic Acid (0.4-2.0) Calcium (8.4-10.2) mg/dL Total Bilirubin (0.2-1.3) mg/dL AST (17-59) U/L ALT (0-50) U/L Alkaline Phosphatase (38-126) U/L Serum Total Protein (6.3-8.2) g/dL Albumin (3.5-5.0) g/dL Amylase (30-110) U/L Lipase (23-300) U/L Urine Color YELLOW (YELLOW) Urine Appearance CLEAR (CLEAR) Urine pH 5.0 (5-6) Ur Specific Mobile 1.015 (1.005-1.025) Urine Protein NEGATIVE (Negative) Urine Ketones NEGATIVE (NEGATIVE) Urine Blood NEGATIVE (0-5) Wicho/ul Urine Nitrite NEGATIVE (NEGATIVE) Urine Bilirubin NEGATIVE (NEGATIVE) Urine Urobilinogen NEGATIVE (0-1) mg/dL Ur Leukocyte Esterase NEGATIVE (NEGATIVE) Urine WBC (Auto) NONE (0-5) /HPF Urine RBC (Auto) NONE (0-2) /HPF U Hyaline Cast (Auto) 0-2 (0-2) /LPF U Epithel Cells (Auto) NONE (FEW) /HPF Urine Bacteria (Auto) NONE (NEGATIVE) /HPF Urine Mucus (Auto) SLIGHT (NEGATIVE) /HPF Urine Culture Reflexed NO (NO) Urine Glucose 150 (NEGATIVE) mg/dL SARS-CoV-2 (PCR) (NEGATIVE) Slides for Path Review YES 08/02/20 08/02/20 Range/Units 04:20 06:55 WBC (4.0-10.5) K/mm3 RBC (4.1-5.6) M/mm3 Hgb (12.5-18.0) gm/dl Hct (42-50) % MCV (78-100) fl MCH (26-32) pg MCHC (32-36) g/dl RDW (11.5-14.0) % Plt Count (150-450) K/mm3 MPV (7.5-11.0) fl Gran % (36.0-66.0) % Eos # (Auto) (0-0.5) Absolute Lymphs (auto) (1.0-4.6) Absolute Monos (auto) (0.0-1.3) Lymphocytes % (24.0-44.0) % Monocytes % (0.0-12.0) % Eosinophils % (0.00-5.0) % Basophils % (0.0-0.4) % Absolute Granulocytes (1.4-6.9) Basophils # (0-0.4) Sodium 137 (137-145) mmol/L Potassium 4.1 (3.5-5.1) mmol/L Chloride 107 (98-107) mmol/L Carbon Dioxide 24 (22-30) mmol/L Anion Gap 10.3 (5-15) MEQ/L BUN 21 H (9-20) mg/dL Creatinine 1.32 H (0.66-1.25) mg/dL Estimated GFR 54.7 ML/MIN Glucose 119 H (74-106) mg/dL POC Glucometer 121 H (74 to 106) mg/dL Hemoglobin A1c (4.5-6.0) % Lactic Acid (0.4-2.0) Calcium 9.6 (8.4-10.2) mg/dL Total Bilirubin 0.20 (0.2-1.3) mg/dL AST 19 (17-59) U/L ALT 12 (0-50) U/L Alkaline Phosphatase 59 (38-126) U/L Serum Total Protein 5.6 L (6.3-8.2) g/dL Albumin 3.2 L (3.5-5.0) g/dL Amylase (30-110) U/L Lipase (23-300) U/L Urine Color (YELLOW) Urine Appearance (CLEAR) Urine pH (5-6) Ur Specific Mobile (1.005-1.025) Urine Protein (Negative) Urine Ketones (NEGATIVE) Urine Blood (0-5) Wicho/ul Urine Nitrite (NEGATIVE) Urine Bilirubin (NEGATIVE) Urine Urobilinogen (0-1) mg/dL Ur Leukocyte Esterase (NEGATIVE) Urine WBC (Auto) (0-5) /HPF Urine RBC (Auto) (0-2) /HPF U Hyaline Cast (Auto) (0-2) /LPF U Epithel Cells (Auto) (FEW) /HPF Urine Bacteria (Auto) (NEGATIVE) /HPF Urine Mucus (Auto) (NEGATIVE) /HPF Urine Culture Reflexed (NO) Urine Glucose (NEGATIVE) mg/dL SARS-CoV-2 (PCR) (NEGATIVE) Slides for Path Review Accuchecks Date 08/01/20 Date 08/01/20 Time 21:25 Time 21:21 Assessment/Plan (1) Acute on chronic renal failure Current Visit: Yes Status: Acute Qualifiers: Acute renal failure type: unspecified Chronic kidney disease stage: stage 3 (moderate) Chronic kidney disease stage 3 subtype: stage 3b (GFR 30-44) Qualified Code(s): N17.9 - Acute kidney failure, unspecified; N18.32 - Chronic kidney disease, stage 3b Assessment & Plan: Chief Complaint Diagnosis diarrhea, acute renal failure Allergies Allergy/AdvReac Type Severity Reaction Status Date / Time No Known Drug Allergies Allergy Verified 08/01/20 15:18 Vital Signs (Last 24 hours) Temp Pulse Resp BP Pulse Ox 08/02/20 07:47 99.0 F 70 20 153/68 97 08/02/20 04:00 99.0 F 72 22 137/66 96 08/02/20 00:00 98.2 F 73 16 162/70 96 08/01/20 20:00 97.8 F 71 15 114/55 95 08/01/20 18:42 97.8 F 71 15 114/55 95 08/01/20 17:02 70 14 130/59 95 08/01/20 16:38 99 08/01/20 16:22 73 24 123/62 99 08/01/20 14:58 98.0 F 61 18 116/57 99 Home Medications Medication Instructions Recorded Confirmed Last Taken Type Glimepiride 2 mg [Amaryl 2 2 mg PO DAILY 08/01/20 08/01/20 08/01/20 History MG] Metformin HCl [Glucophage] 1,000 mg PO BID 08/01/20 08/01/20 08/01/20 History Vitamin E 100 unit PO BID 08/01/20 08/01/20 08/01/20 History Current Medications Generic Name Dose Route Start Last Admin Trade Name Freq PRN Reason Stop Dose Admin Acetaminophen 0 mg 08/02/20 07:20 Tylenol Extra Strength 500 Mg PO 09/01/20 07:19 Q6HPRN PRN PAIN AND/OR FEVER Aspirin 81 mg 08/02/20 10:00 08/02/20 09:38 Ecotrin 81 Mg PO 09/01/20 09:59 81 mg DAILY ART Administration Carvedilol 3.125 mg 08/01/20 22:00 08/02/20 09:39 Coreg 3.125 Mg PO 08/31/20 21:59 3.125 mg BID ART Administration Clopidogrel Bisulfate 75 mg 08/02/20 10:00 08/02/20 09:38 Plavix 75 Mg Tablet PO 09/01/20 09:59 75 mg DAILY ART Administration Folic Acid 1 mg 08/02/20 10:00 08/02/20 09:41 Folate 1 Mg PO 09/01/20 09:59 1 mg DAILY ART Administration Glimepiride 2 mg 08/02/20 08:00 08/02/20 08:08 Amaryl 2 Mg PO 09/01/20 07:59 2 mg BREAKFAST ART Administration Hydrochlorothiazide 25 mg 08/02/20 10:00 08/02/20 09:38 Hydrodiuril 25 Mg PO 09/01/20 09:59 25 mg DAILY ART Administration Sodium Chloride 1,000 mls @ 100 mls/hr 08/01/20 18:00 08/02/20 05:16 Sodium Chloride 0.9% 1000 Ml IV 08/31/20 17:59 100 mls/hr .Q10H ART Administration Insulin Human Lispro 0 unit 08/01/20 18:00 Humalog SQ 08/31/20 17:59 UD PRN HYPERGLYCEMIA Isosorbide Mononitrate 30 mg 08/02/20 10:00 08/02/20 09:38 Imdur 30 Mg PO 09/01/20 09:59 30 mg DAILY ART Administration Lisinopril 20 mg 08/02/20 10:00 08/02/20 09:39 Zestril 20 Mg PO 09/01/20 09:59 20 mg DAILY ART Administration Metformin HCl 1,000 mg 08/02/20 08:00 08/02/20 08:08 Glucophage 500 Mg PO 09/01/20 07:59 1,000 mg BIDWM ART Administration Morphine Sulfate 2 mg 08/01/20 18:00 Morphine Sulfate 2 Mg Inj IV 08/06/20 17:59 Q4H PRN PRN PAIN Oxybutynin Chloride 5 mg 08/02/20 10:00 08/02/20 09:38 Ditropan Xl 5 Mg PO 09/01/20 09:59 5 mg DAILY ART Administration Pantoprazole Sodium 40 mg 08/01/20 22:00 08/02/20 09:39 Protonix 40mg Tablet PO 08/31/20 21:59 40 mg BID ART Administration Paroxetine HCl 10 mg 08/02/20 10:00 08/02/20 09:40 Paxil 20 Mg PO 09/01/20 09:59 10 mg DAILY ART Administration Potassium Chloride 10 meq 08/01/20 22:00 08/02/20 09:38 Klor Con 10 Meq PO 08/31/20 21:59 10 meq BID ART Administration Simvastatin 10 mg 08/01/20 22:00 08/01/20 21:03 Zocor 10mg PO 08/31/20 21:59 10 mg HS ART Administration Tamsulosin HCl 0.4 mg 08/02/20 10:00 08/02/20 09:39 Flomax 0.4 Mg PO 09/01/20 09:59 0.4 mg DAILY ART Administration Vitamin E 400 u 08/02/20 10:00 08/02/20 09:41 Vitamin E 400 Unit Softgel PO 09/01/20 09:59 400 u DAILY ART Administration Discontinued Medications Generic Name Dose Route Start Last Admin Trade Name Freq PRN Reason Stop Dose Admin Sodium Chloride 1,000 mls @ 999 mls/hr 08/01/20 15:19 08/01/20 16:29 Sodium Chloride 0.9% 1000 Ml IV 08/01/20 16:19 Infused .Q1H1M STA Infusion Sodium Chloride Confirm 08/01/20 15:26 Sodium Chloride 0.9% 1000 Ml Administered 08/01/20 15:27 Dose 1,000 mls @ ud .ROUTE .STK-MED ONE Intake & Output (Last 24 hours) 07/30/20 07/31/20 08/01/20 08/02/20 11:59 11:59 11:59 11:59 Intake Total 1878 Output Total 1300 Balance 578 Weight 77.8 kg Laboratory Results (Last 24 hours) 08/02/20 08/02/20 08/02/20 06:55 04:20 04:20 WBC 5.6 RBC 3.08 L Hgb 6.8 L* Hct 24.6 L MCV 79.9 MCH 22.1 L MCHC 27.6 L RDW 16.8 H Plt Count 272 MPV 10.3 Gran % 60.5 Eos # (Auto) 0.17 Absolute Lymphs (auto) 1.34 Absolute Monos (auto) 0.67 Lymphocytes % 24.1 Monocytes % 12.1 H Eosinophils % 3.1 Basophils % 0.2 Absolute Granulocytes 3.36 Basophils # 0.01 Sodium 137 Potassium 4.1 Chloride 107 Carbon Dioxide 24 Anion Gap 10.3 BUN 21 H Creatinine 1.32 H Estimated GFR 54.7 Glucose 119 H POC Glucometer 121 H Hemoglobin A1c Lactic Acid Calcium 9.6 Total Bilirubin 0.20 AST 19 ALT 12 Alkaline Phosphatase 59 Serum Total Protein 5.6 L Albumin 3.2 L Amylase Lipase Urine Color Urine Appearance Urine pH Ur Specific [place] Urine Protein Urine Ketones Urine Blood Urine Nitrite Urine Bilirubin Urine Urobilinogen Ur Leukocyte Esterase Urine WBC (Auto) Urine RBC (Auto) U Hyaline Cast (Auto) U Epithel Cells (Auto) Urine Bacteria (Auto) Urine Mucus (Auto) Urine Culture Reflexed Urine Glucose SARS-CoV-2 (PCR) Slides for Path Review YES 08/01/20 08/01/20 08/01/20 21:18 19:11 18:20 WBC RBC Hgb Hct MCV MCH MCHC RDW Plt Count MPV Gran % Eos # (Auto) Absolute Lymphs (auto) Absolute Monos (auto) Lymphocytes % Monocytes % Eosinophils % Basophils % Absolute Granulocytes Basophils # Sodium Potassium Chloride Carbon Dioxide Anion Gap BUN Creatinine Estimated GFR Glucose POC Glucometer 206 H Hemoglobin A1c 8.07 H Lactic Acid Calcium Total Bilirubin AST ALT Alkaline Phosphatase Serum Total Protein Albumin Amylase Lipase Urine Color YELLOW Urine Appearance CLEAR Urine pH 5.0 Ur Specific [place] 1.015 Urine Protein NEGATIVE Urine Ketones NEGATIVE Urine Blood NEGATIVE Urine Nitrite NEGATIVE Urine Bilirubin NEGATIVE Urine Urobilinogen NEGATIVE Ur Leukocyte Esterase NEGATIVE Urine WBC (Auto) NONE Urine RBC (Auto) NONE U Hyaline Cast (Auto) 0-2 U Epithel Cells (Auto) NONE Urine Bacteria (Auto) NONE Urine Mucus (Auto) SLIGHT Urine Culture Reflexed NO Urine Glucose 150 SARS-CoV-2 (PCR) Slides for Path Review 08/01/20 08/01/20 08/01/20 17:45 16:41 15:51 WBC RBC Hgb Hct MCV MCH MCHC RDW Plt Count MPV Gran % Eos # (Auto) Absolute Lymphs (auto) Absolute Monos (auto) Lymphocytes % Monocytes % Eosinophils % Basophils % Absolute Granulocytes Basophils # Sodium 136 L Potassium 4.4 Chloride 106 Carbon Dioxide 22 Anion Gap 12.2 BUN 25 H Creatinine 1.54 H Estimated GFR 45.8 Glucose 249 H POC Glucometer Hemoglobin A1c Lactic Acid 1.6 Calcium 10.0 Total Bilirubin 0.40 AST 18 ALT 15 Alkaline Phosphatase 64 Serum Total Protein 5.9 L Albumin 3.4 L Amylase 53 Lipase 120 Urine Color Urine Appearance Urine pH Ur Specific [place] Urine Protein Urine Ketones Urine Blood Urine Nitrite Urine Bilirubin Urine Urobilinogen Ur Leukocyte Esterase Urine WBC (Auto) Urine RBC (Auto) U Hyaline Cast (Auto) U Epithel Cells (Auto) Urine Bacteria (Auto) Urine Mucus (Auto) Urine Culture Reflexed Urine Glucose SARS-CoV-2 (PCR) NEGATIVE Slides for Path Review 08/01/20 08/01/20 15:51 15:19 WBC 7.5 RBC 3.30 L Hgb 7.5 L Hct 26.2 L MCV 79.4 MCH 22.7 L MCHC 28.6 L RDW 16.8 H Plt Count 279 MPV 10.2 Gran % 80.2 H Eos # (Auto) 0.14 Absolute Lymphs (auto) 0.81 L Absolute Monos (auto) 0.51 Lymphocytes % 10.8 L Monocytes % 6.8 Eosinophils % 1.9 Basophils % 0.3 Absolute Granulocytes 6.05 Basophils # 0.02 Sodium Potassium Chloride Carbon Dioxide Anion Gap BUN Creatinine Estimated GFR Glucose POC Glucometer Hemoglobin A1c Lactic Acid 3.2 H Calcium Total Bilirubin AST ALT Alkaline Phosphatase Serum Total Protein Albumin Amylase Lipase Urine Color Urine Appearance Urine pH Ur Specific [place] Urine Protein Urine Ketones Urine Blood Urine Nitrite Urine Bilirubin Urine Urobilinogen Ur Leukocyte Esterase Urine WBC (Auto) Urine RBC (Auto) U Hyaline Cast (Auto) U Epithel Cells (Auto) Urine Bacteria (Auto) Urine Mucus (Auto) Urine Culture Reflexed Urine Glucose SARS-CoV-2 (PCR) Slides for Path Review YES Orders (Last 24 hours) Category Date Time Status Up Ad Julissa ROUTINE Activity 08/01/20 18:00 Active Code Status Order ROUTINE Care 08/01/20 18:00 Active IV Care Q6H Care 08/01/20 18:00 Active Miscellaneous Nursing Order ROUTINE Care 08/01/20 18:00 Active POCT Glucose Check ACHS Care 08/01/20 18:[address] in Observation ROUTINE Care 08/01/20 18:00 Active Ashley Lepe ROUTINE Care 08/01/20 18:00 Active Telemetry Q12H Care 08/01/20 18:11 Active Weight,Daily 0600 Care 08/01/20 18:00 Active Computer Training Specialist/Discharge Plan ROUTINE Cons 08/01/20 19:04 Active Consistent Carbohydrate Diet 1800 Calorie Diet 08/01/20 Dinner Active Nutritional Admission Screen ONCE Diet 08/01/20 19:04 Active AMYLASE Stat Lab 08/01/20 15:51 Completed CBC W DIFF AM.LAB Lab 08/02/20 04:20 Completed CBC W DIFF Stat Lab 08/01/20 15:51 Completed CMP AM.LAB Lab 08/02/20 04:20 Completed CMP Stat Lab 08/01/20 15:51 Completed FECAL OCCULT BLOOD - SCREENING Routine Lab 08/02/20 00:00 Ordered HEMOGLOBIN A1C Urgent Lab 08/01/20 18:20 Completed LIPASE Stat Lab 08/01/20 15:51 Completed Lactic Acid Stat Lab 08/01/20 15:19 Completed Lactic Acid Stat Lab 08/01/20 17:45 Completed POCT GLUCOSE Stat Lab 08/01/20 21:18 Completed POCT GLUCOSE Stat Lab 08/02/20 06:55 Completed UA W/RFX UR CULTURE Stat Lab 08/01/20 19:11 Completed Acetaminophen 500 mg [Tylenol Extra Strength 500 mg* Med 08/02/20 07:20 Active ] See Dose Instructions PO Q6HPRN PRN Aspirin EC 81 mg [Ecotrin 81 mg] Med 08/02/20 10:00 Active 81 mg PO DAILY Carvedilol 3.125 mg [Coreg 3.125 MG] Med 08/01/20 22:00 Active 3.125 mg PO BID Clopidogrel Bisulfate 75 mg [PLAVIX 75 MG Tablet] Med 08/02/20 10:00 Active 75 mg PO DAILY Folic Acid 1 mg [Folate 1 mg] Med 08/02/20 10:00 Active 1 mg PO DAILY Glimepiride 2 mg [Amaryl 2 MG] Med 08/02/20 08:00 Active 2 mg PO BREAKFAST Hydrochlorothiazide 25 mg [hydroDIURIL 25 MG] Med 08/02/20 10:00 Active 25 mg PO DAILY Insulin Lispro [Humalog] Med 08/01/20 18:00 Active See Dose Instructions SQ UD PRN Isosorbide Mononitrate 30 mg [Imdur 30 MG] Med 08/02/20 10:00 Active 30 mg PO DAILY Lisinopril 20 mg [Zestril 20 MG] Med 08/02/20 10:00 Active 20 mg PO DAILY Metformin HCl 500 mg [Glucophage 500 MG] Med 08/02/20 08:00 Active 1,000 mg PO BIDWM Morphine Sulfate 2 mg Inj Med 08/01/20 18:00 Active 2 mg IV Q4H PRN PRN NaCl 0.9% 1000 ml [Sodium Chloride 0.9% 1000 ML] 000 Med 08/01/20 15:26 Discontinued ml .ROUTE UD NaCl 0.9% 1000 ml [Sodium Chloride 0.9% 1000 ML] 000 Med 08/01/20 18:00 Active ml IV 100 mls/hr NaCl 0.9% 1000 ml [Sodium Chloride 0.9% 1000 ML] ,000 Med 08/01/20 15:19 Discontinued ml IV 999 mls/hr Oxybutynin Chloride Xl 5 mg [Ditropan XL 5 MG] Med 08/02/20 10:00 Active 5 mg PO DAILY PANTOPRAZOLE 40 mg Tablet [Protonix 40MG Tablet] Med 08/01/20 22:00 Active 40 mg PO BID Paroxetine HCl 20 mg [Paxil 20 MG] Med 08/02/20 10:00 Active 10 mg PO DAILY Potassium Chloride 10 Meq Tab* [Klor Con 10 MEQ] Med 08/01/20 22:00 Active 10 meq PO BID Simvastatin 10 mg [Zocor 10MG] Med 08/01/20 22:00 Active 10 mg PO HS Tamsulosin HCl 0.4 mg [Flomax 0.4 MG] Med 08/02/20 10:00 Active 0.4 mg PO DAILY Vitamin E 400 Units [Vitamin E 400 UNIT SOFTGEL] Med 08/02/20 10:00 Active 400 u PO DAILY Code(s): N17.9 - ACUTE KIDNEY FAILURE, UNSPECIFIED; N18.9 - CHRONIC KIDNEY DISEASE, UNSPECIFIED (2) Anemia Current Visit: Yes Status: Acute Qualifiers: Anemia type: due to chronic kidney disease Chronic kidney disease stage: stage 3 (moderate) Chronic kidney disease stage 3 subtype: stage 3b (GFR 30- 44) Qualified Code(s): N18.32 - Chronic kidney disease, stage 3b; D63.1 - Anemia in chronic kidney disease Code(s): D64.9 - ANEMIA, UNSPECIFIED (3) Hypertension Current Visit: Yes Status: Chronic Qualifiers: Hypertension type: essential hypertension Qualified Code(s): I10 - Essential (primary) hypertension Code(s): I10 - ESSENTIAL (PRIMARY) HYPERTENSION (4) Type 2 diabetes mellitus Current Visit: Yes Status: Chronic Qualifiers: 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
[2020-08-02 15:08] LABS: ABO TYPING O; Antibody Screen NEGATIVE (NEGATIVE); RH TYPING POSITIVE
[2020-08-02 15:11] LABS: CROSS MATCH (PRBC) COMPATIBLE (COMPATIBLE)
[2020-08-02] MEDS: Zocor 10MG PO SCH (21:14)
[2020-08-02 23:03] LABS: Hematocrit 28.3 % (42-50)
[2020-08-02 23:04] LABS: Hemoglobin 8.5 gm/dl (12.5-18.0)
[2020-08-03] MEDS: Sodium Chloride 0.9% 1000 ML 1,000 ML IV SCH (03:00)
--- NOTE | 2020-08-03 07:53 | PCM.NOTE ---
Date and Time: 08/03/20 0752 Subjective Assessment: doing better, no diarrhea, s/p blood transfusion hgb 8.5 - Review of Systems Constitutional: No Fever, No Chills Eyes: No Symptoms Ears, Nose, & Throat: No Symptoms Respiratory: No Cough, No Short Of Breath Cardiac: No Chest Pain, No Edema, No Syncope Abdominal/Gastrointestinal: No Abdominal Pain, No Nausea, No Vomiting, No Diarrhea Genitourinary Symptoms: No Dysuria Musculoskeletal: No Back Pain, No Neck Pain Skin: No Rash Neurological: No Dizziness, No Focal Weakness, No Sensory Changes Psychological: No Symptoms Endocrine: No Symptoms Hematologic/Lymphatic: No Symptoms Immunological/Allergic: No Symptoms Objective Exam General Appearance: no apparent distress, alert Neurologic Exam: alert, oriented x 3, cooperative, normal mood/affect, nml cerebellar function, sensation nml, No motor deficits Skin Exam: normal color, warm, dry Eye Exam: PERRL, EOMI, eyes nml inspection Ears, Nose, Throat Exam: normal ENT inspection, pharynx normal, moist mucous membranes Neck Exam: normal inspection, non-tender, supple, full range of motion Respiratory Exam: normal breath sounds, lungs clear, No respiratory distress Cardiovascular Exam: regular rate/rhythm, normal heart sounds Gastrointestinal/Abdomen Exam: soft, No tenderness, No mass Extremity Exam: normal inspection, normal range of motion Back Exam: normal inspection, normal range of motion, No CVA tenderness, No vertebral tenderness Male Genitalia Exam: deferred Rectal Exam: deferred OBJECTIVE DATA Vital Signs: Vital Signs - 24 hr Temp Pulse Resp BP Pulse Ox 08/03/20 07:45 97.9 F 65 16 193/86 97 08/03/20 04:00 98 F 64 16 188/77 97 08/02/20 23:58 98.4 F 70 18 172/75 95 08/02/20 19:46 97.6 F 75 24 160/76 95 08/02/20 19:27 97.5 F 64 18 137/64 96 08/02/20 16:00 98.0 F 70 19 136/64 97 08/02/20 12:00 98.8 F 76 20 121/67 98 Pain Assessment - Last Documented Pain Intensity 0 Pain Scale Used 0-10 Pain Scale Intake and Output: Intake & Output 07/31/20 08/01/20 08/02/20 08/03/20 11:59 11:59 11:59 11:59 Intake Total 5427 1227 Output Total 6486 5215 Balance 578 1212 Weight 77.8 kg 80.7 kg Lab Results: Lab Results-Last 24 Hours 08/02/20 08/02/20 08/02/20 Range/Units 06:00 06:00 06:00 Hgb (12.5-18.0) gm/dl Hct (42-50) % POC Glucometer (74 to 106) mg/dL ABO Group O Rh Factor POSITIVE Antibody Screen NEGATIVE (NEGATIVE) Crossmatch COMPATIBLE COMPATIBLE (COMPATIBLE) 08/02/20 08/02/20 08/02/20 Range/Units 11:05 15:39 20:15 Hgb (12.5-18.0) gm/dl Hct (42-50) % POC Glucometer 198 H 153 H 171 H (74 to 106) mg/dL ABO Group Rh Factor Antibody Screen (NEGATIVE) Crossmatch (COMPATIBLE) 08/02/20 08/03/20 Range/Units 22:55 07:21 Hgb 8.5 L D (12.5-18.0) gm/dl Hct 28.3 L (42-50) % POC Glucometer 148 H (74 to 106) mg/dL ABO Group Rh Factor Antibody Screen (NEGATIVE) Crossmatch (COMPATIBLE) Assessment/Plan (1) Anemia Current Visit: Yes Status: Acute Qualifiers: Anemia type: due to chronic kidney disease Chronic kidney disease stage: stage 3 (moderate) Chronic kidney disease stage 3 subtype: stage 3b (GFR 30- 44) Qualified Code(s): N18.32 - Chronic kidney disease, stage 3b; D63.1 - Anemia in chronic kidney disease Assessment & Plan: Chief Complaint Diagnosis c/o diarrhea and weakness for 3 days Allergies Allergy/AdvReac Type Severity Reaction Status Date / Time No Known Drug Allergies Allergy Verified 08/01/20 15:18 Vital Signs (Last 24 hours) Temp Pulse Resp BP Pulse Ox 08/03/20 07:45 97.9 F 65 16 193/86 97 08/03/20 04:00 98 F 64 16 188/77 97 08/02/20 23:58 98.4 F 70 18 172/75 95 08/02/20 19:46 97.6 F 75 24 160/76 95 08/02/20 19:27 97.5 F 64 18 137/64 96 02/01/21 16:00 98.0 F 70 19 136/64 97 08/02/20 12:00 98.8 F 76 20 121/67 98 Home Medications Medication Instructions Recorded Confirmed Last Taken Type Glimepiride 2 mg [Amaryl 2 2 mg PO DAILY 08/01/20 08/01/20 08/01/20 History MG] Metformin HCl [Glucophage] 1,000 mg PO BID 08/01/20 08/01/20 08/01/20 History Vitamin E 100 unit PO BID 08/01/20 08/01/20 08/01/20 History Current Medications Generic Name Dose Route Start Last Admin Trade Name Freq PRN Reason Stop Dose Admin Acetaminophen 0 mg 08/02/20 07:20 08/02/20 21:23 Tylenol Extra Strength 500 Mg PO 09/01/20 07:19 500 mg Q6HPRN PRN Administration PAIN AND/OR FEVER Aspirin 81 mg 08/02/20 10:00 08/02/20 09:38 Ecotrin 81 Mg PO 09/01/20 09:59 81 mg DAILY ART Administration Carvedilol 3.125 mg 08/01/20 22:00 08/02/20 21:14 Coreg 3.125 Mg PO 08/31/20 21:59 3.125 mg BID ART Administration Clopidogrel Bisulfate 75 mg 08/02/20 10:00 08/02/20 09:38 Plavix 75 Mg Tablet PO 09/01/20 09:59 75 mg DAILY ART Administration Folic Acid 1 mg 08/02/20 10:00 08/02/20 09:41 Folate 1 Mg PO 09/01/20 09:59 1 mg DAILY ART Administration Glimepiride 2 mg 08/02/20 08:00 08/02/20 08:08 Amaryl 2 Mg PO 09/01/20 07:59 2 mg BREAKFAST ART Administration Hydrochlorothiazide 25 mg 08/02/20 10:00 08/02/20 09:38 Hydrodiuril 25 Mg PO 09/01/20 09:59 25 mg DAILY ART Administration Sodium Chloride 1,000 mls @ 100 mls/hr 08/01/20 18:00 08/03/20 03:00 Sodium Chloride 0.9% 1000 Ml IV 08/31/20 17:59 100 mls/hr .Q10H ART Administration Insulin Human Lispro 0 unit 08/01/20 18:00 Humalog SQ 08/31/20 17:59 UD PRN HYPERGLYCEMIA Isosorbide Mononitrate 30 mg 08/02/20 10:00 08/02/20 09:38 Imdur 30 Mg PO 09/01/20 09:59 30 mg DAILY ART Administration Lisinopril 20 mg 08/02/20 10:00 08/02/20 09:39 Zestril 20 Mg PO 09/01/20 09:59 20 mg DAILY ART Administration Metformin HCl 1,000 mg 08/02/20 08:00 08/02/20 17:30 Glucophage 500 Mg PO 09/01/20 07:59 1,000 mg BIDWM ART Administration Morphine Sulfate 2 mg 08/01/20 18:00 Morphine Sulfate 2 Mg Inj IV 08/06/20 17:59 Q4H PRN PRN PAIN Oxybutynin Chloride 5 mg 08/02/20 10:00 08/02/20 09:38 Ditropan Xl 5 Mg PO 09/01/20 09:59 5 mg DAILY ART Administration Pantoprazole Sodium 40 mg 08/01/20 22:00 08/02/20 21:14 Protonix 40mg Tablet PO 08/31/20 21:59 40 mg BID ART Administration Paroxetine HCl 10 mg 08/02/20 10:00 08/02/20 09:40 Paxil 20 Mg PO 09/01/20 09:59 10 mg DAILY ART Administration Potassium Chloride 10 meq 08/01/20 22:00 08/02/20 21:14 Klor Con 10 Meq PO 08/31/20 21:59 10 meq BID ART Administration Simvastatin 10 mg 08/01/20 22:00 08/02/20 21:14 Zocor 10mg PO 08/31/20 21:59 10 mg HS ART Administration Tamsulosin HCl 0.4 mg 08/02/20 10:00 08/02/20 09:39 Flomax 0.4 Mg PO 09/01/20 09:59 0.4 mg DAILY ART Administration Vitamin E 400 u 08/02/20 10:00 08/02/20 09:41 Vitamin E 400 Unit Softgel PO 09/01/20 09:59 400 u DAILY ART Administration Discontinued Medications Generic Name Dose Route Start Last Admin Trade Name Daniella PRN Reason Stop Dose Admin Sodium Chloride 1,000 mls @ 999 mls/hr 08/01/20 15:19 08/01/20 16:29 Sodium Chloride 0.9% 1000 Ml IV 08/01/20 16:19 Infused .Q1H1M STA Infusion Sodium Chloride Confirm 08/01/20 15:26 Sodium Chloride 0.9% 1000 Ml Administered 08/01/20 15:27 Dose 1,000 mls @ ud .ROUTE .STK-MED ONE Intake & Output (Last 24 hours) 07/31/20 08/01/20 08/02/20 08/03/20 11:59 11:59 11:59 11:59 Intake Total 1878 3887 Output Total 1300 2675 Balance 578 1212 Weight 77.8 kg 80.7 kg Laboratory Results (Last 24 hours) 08/03/20 08/02/20 08/02/20 07:21 22:55 20:15 Hgb 8.5 L D Hct 28.3 L POC Glucometer 148 H 171 H ABO Group Rh Factor Antibody Screen Crossmatch 08/02/20 08/02/20 08/02/20 15:39 11:05 06:00 Hgb Hct POC Glucometer 153 H 198 H ABO Group Rh Factor Antibody Screen Crossmatch COMPATIBLE 08/02/20 08/02/20 06:00 06:00 Hgb Hct POC Glucometer ABO Group O Rh Factor POSITIVE Antibody Screen NEGATIVE Crossmatch COMPATIBLE Orders (Last 24 hours) Category Date Time Status Consent,Obtain ROUTINE Care 08/02/20 12:16 Active HEMOGLOBIN AND HEMATOCRIT Urgent Lab 08/02/20 22:55 Completed POCT GLUCOSE Stat Lab 08/02/20 06:55 Completed POCT GLUCOSE Stat Lab 08/02/20 11:05 Completed POCT GLUCOSE Stat Lab 08/02/20 15:39 Completed POCT GLUCOSE Stat Lab 08/02/20 20:15 Completed POCT GLUCOSE Stat Lab 08/03/20 07:21 Completed Acetaminophen 500 mg [Tylenol Extra Strength 500 mg* Med 08/02/20 07:20 Active ] See Dose Instructions PO Q6HPRN PRN Aspirin EC 81 mg [Ecotrin 81 mg] Med 08/02/20 10:00 Active 81 mg PO DAILY Clopidogrel Bisulfate 75 mg [PLAVIX 75 MG Tablet] Med 08/02/20 10:00 Active 75 mg PO DAILY Folic Acid 1 mg [Folate 1 mg] Med 08/02/20 10:00 Active 1 mg PO DAILY Glimepiride 2 mg [Amaryl 2 MG] Med 08/02/20 08:00 Active 2 mg PO BREAKFAST Hydrochlorothiazide 25 mg [hydroDIURIL 25 MG] Med 08/02/20 10:00 Active 25 mg PO DAILY Isosorbide Mononitrate 30 mg [Imdur 30 MG] Med 08/02/20 10:00 Active 30 mg PO DAILY Lisinopril 20 mg [Zestril 20 MG] Med 08/02/20 10:00 Active 20 mg PO DAILY Metformin HCl 500 mg [Glucophage 500 MG] Med 08/02/20 08:00 Active 1,000 mg PO BIDWM Oxybutynin Chloride Xl 5 mg [Ditropan XL 5 MG] Med 08/02/20 10:00 Active 5 mg PO DAILY Paroxetine HCl 20 mg [Paxil 20 MG] Med 08/02/20 10:00 Active 10 mg PO DAILY Tamsulosin HCl 0.4 mg [Flomax 0.4 MG] Med 08/02/20 10:00 Active 0.4 mg PO DAILY Vitamin E 400 Units [Vitamin E 400 UNIT SOFTGEL] Med 08/02/20 10:00 Active 400 u PO DAILY Patient Care Notes (Last 24 hours) 08/02/20 17:16 Nursing Note by Karen Villa [facility] CALLED BACK WITH NEW AUDIOLOGY APPOINTMENT FOR 08/10/20 @ 2:[address] [facility] WILL CALL TOMORROW 08/03/20 WITH A NEW APPOINTMENT. Initialized on 08/02/20 17:16 - END OF NOTE 08/02/20 12:32 Nursing Note by Karen Villa CALLED DR [facility]ASCENC[facility] TO CANCEL AND RESCHEDULE AUDIOLOGY APPOINTMENT THAT WAS SCHEDULED FOR 08/03/20 AND FOLLOW UP FOR RESULTS ON 08/09/20. YANELY AT DR [facility]ASCENC[facility] IS PUTTING NOTES BACK TO RESCHEDULE BOTH APPOINTMENTS AND WILL CALL HERE WITH NEW APPOINTMENT DATES AND TIMES. Initialized on 08/02/20 12:32 - END OF NOTE Code(s): D64.9 - ANEMIA, UNSPECIFIED (2) Acute on chronic renal failure Current Visit: Yes Status: Acute Qualifiers: Acute renal failure type: unspecified Chronic kidney disease stage: stage 3 (moderate) Chronic kidney disease stage 3 subtype: stage 3b (GFR 30-44) Qualified Code(s): N17.9 - Acute kidney failure, unspecified; N18.32 - Chronic kidney disease, stage 3b Code(s): N17.9 - ACUTE KIDNEY FAILURE, UNSPECIFIED; N18.9 - CHRONIC KIDNEY DISEASE, UNSPECIFIED (3) Hypertension Current Visit: Yes Status: Chronic Qualifiers: Hypertension type: essential hypertension Qualified Code(s): I10 - Essential (primary) hypertension Code(s): I10 - ESSENTIAL (PRIMARY) HYPERTENSION (4) Type 2 diabetes mellitus Current Visit: Yes Status: Chronic 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
[2020-08-03] MEDS: Ditropan XL 5 MG PO SCH (08:43)
[2020-08-03] MEDS: Glucophage 500 MG PO SCH (08:43)
[2020-08-03] MEDS: ECOTRIN 81 MG PO SCH ×2 (08:43→14:36)
[2020-08-03] MEDS: FOLATE 1 MG PO SCH (08:44)
[2020-08-03] MEDS: Zestril 20 MG PO SCH (08:44)
[2020-08-03] MEDS: Flomax 0.4 MG PO SCH (08:44)
[2020-08-03] MEDS: hydroDIURIL 25 MG PO SCH (08:44)
[2020-08-03] MEDS: Coreg 3.125 MG PO SCH (08:44)
[2020-08-03] MEDS: Klor Con 10 MEQ PO SCH (08:44)
[2020-08-03] MEDS: Protonix 40MG Tablet PO SCH (08:44)
[2020-08-03] MEDS: Imdur 30 MG PO SCH (08:44)
[2020-08-03] MEDS: Paxil 20 MG PO SCH (08:44)
[2020-08-03] MEDS: PLAVIX 75 MG Tablet PO SCH ×2 (08:44→14:36)
[2020-08-03] MEDS: Amaryl 2 MG PO SCH (08:44)
[2020-08-03] MEDS: Vitamin E 400 UNIT SOFTGEL PO SCH (08:45)
[2020-08-03 09:15] LABS: Absolute Neutrophil Ct (ANC) 4.54 (1.4-6.9); BASOPHIL % 0.3 % (0.0-0.4); Basophil (Absolute #) 0.02 (0-0.4); Eosinophil % 2.8 % (0.00-5.0); Eosinophil (Absolute #) 0.19 (0-0.5); Hematocrit 31.5 % (42-50); Hemoglobin 9.4 gm/dl (12.5-18.0); Lymphocyte (Absolute #) 1.29 (1.0-4.6); Mean Cell Volume 80.8 fl (78-100); Mean Corpuscular Hemoglobin 24.1 pg (26-32); Mean Corpuscular Hgb Concent. 29.8 g/dl (32-36); Mean Platelet Volume 9.9 fl (7.5-11.0); Monocyte (Absolute #) 0.75 (0.0-1.3); Neutrophil % 66.9 % (36.0-66.0); Platelet Count 238 K/mm3 (150-450); Red Cell Distribution Width 17.2 % (11.5-14.0); White Blood Count 6.8 K/mm3 (4.0-10.5)
[2020-08-03 10:31] LABS: ANION GAP 13.6 MEQ/L (5-15); Calcium 9.8 mg/dL (8.4-10.2); Creatinine 1 1.24 mg/dL (0.66-1.25); EST GLOMERULAR FILTRATION RATE 58.7 ML/MIN; Potassium 4.2 mmol/L (3.5-5.1)
[2020-08-03 11:58] VITALS: BP 180/81; PULSE 69; O2SAT 96
--- NOTE | 2020-08-03 13:15 | PCM.DS ---
Discharge Summary Date of Admission: 08/01/20 18:00 Admitting Physician: TIMOTHY PONCE Primary Care Provider: TIMOTHY PONCE Allergies Allergies No Known Drug Allergies Allergy (Verified 08/01/20 15:18) Hospital Summary - Hospital Course Hospital Course: Chief Complaint Diagnosis c/o diarrhea and weakness for 3 days Allergies Allergy/AdvReac Type Severity Reaction Status Date / Time No Known Drug Allergies Allergy Verified 08/01/20 15:18 Vital Signs (Last 24 hours) Temp Pulse Resp BP Pulse Ox 08/03/20 11:57 98.0 F 69 16 180/81 96 08/03/20 07:45 97.9 F 65 16 193/86 97 08/03/20 04:00 98 F 64 16 188/77 97 08/02/20 23:58 98.4 F 70 18 172/75 95 08/02/20 19:46 97.6 F 75 24 160/76 95 08/02/20 19:27 97.5 F 64 18 137/64 96 08/02/20 16:00 98.0 F 70 19 136/64 97 Home Medications Medication Instructions Recorded Confirmed Last Taken Type Glimepiride 2 mg [Amaryl 2 2 mg PO DAILY 08/01/20 08/01/20 08/01/20 History MG] Metformin HCl [Glucophage] 1,000 mg PO BID 08/01/20 08/01/20 08/01/20 History Vitamin E 100 unit PO BID 08/01/20 08/01/20 08/01/20 History Current Medications Generic Name Dose Route Start Last Admin Trade Name Freq PRN Reason Stop Dose Admin Acetaminophen 0 mg 08/02/20 07:20 08/02/20 21:23 Tylenol Extra Strength 500 Mg PO 09/01/20 07:19 500 mg Q6HPRN PRN Administration PAIN AND/OR FEVER Aspirin 81 mg 08/02/20 10:00 08/02/20 09:38 Ecotrin 81 Mg PO 09/01/20 09:59 81 mg DAILY ART Administration Carvedilol 3.125 mg 08/01/20 22:00 08/03/20 08:44 Coreg 3.125 Mg PO 08/31/20 21:59 3.125 mg BID ART Administration Clopidogrel Bisulfate 75 mg 08/02/20 10:00 02/01/21 09:38 Plavix 75 Mg Tablet PO 09/01/20 09:59 75 mg DAILY ART Administration Folic Acid 1 mg 08/02/20 10:00 08/03/20 08:44 Folate 1 Mg PO 09/01/20 09:59 1 mg DAILY ART Administration Glimepiride 2 mg 08/02/20 08:00 08/03/20 08:44 Amaryl 2 Mg PO 09/01/20 07:59 2 mg BREAKFAST ART Administration Hydrochlorothiazide 25 mg 08/02/20 10:00 08/03/20 08:44 Hydrodiuril 25 Mg PO 09/01/20 09:59 25 mg DAILY ART Administration Sodium Chloride 1,000 mls @ 100 mls/hr 08/01/20 18:00 08/03/20 03:00 Sodium Chloride 0.9% 1000 Ml IV 08/31/20 17:59 100 mls/hr .Q10H ART Administration Insulin Human Lispro 0 unit 08/01/20 18:00 Humalog SQ 08/31/20 17:59 UD PRN HYPERGLYCEMIA Isosorbide Mononitrate 30 mg 08/02/20 10:00 08/03/20 08:44 Imdur 30 Mg PO 09/01/20 09:59 30 mg DAILY ART Administration Lisinopril 20 mg 08/02/20 10:00 08/03/20 08:44 Zestril 20 Mg PO 09/01/20 09:59 20 mg DAILY ART Administration Metformin HCl 1,000 mg 08/02/20 08:00 08/03/20 08:43 Glucophage 500 Mg PO 09/01/20 07:59 1,000 mg BIDWM ART Administration Morphine Sulfate 2 mg 08/01/20 18:00 Morphine Sulfate 2 Mg Inj IV 08/06/20 17:59 Q4H PRN PRN PAIN Oxybutynin Chloride 5 mg 08/02/20 10:00 08/03/20 08:43 Ditropan Xl 5 Mg PO 09/01/20 09:59 5 mg DAILY ART Administration Pantoprazole Sodium 40 mg 08/01/20 22:00 08/03/20 08:44 Protonix 40mg Tablet PO 08/31/20 21:59 40 mg BID ART Administration Paroxetine HCl 10 mg 08/02/20 10:00 08/03/20 08:44 Paxil 20 Mg PO 09/01/20 09:59 10 mg DAILY ART Administration Potassium Chloride 10 meq 08/01/20 22:00 08/03/20 08:44 Klor Con 10 Meq PO 08/31/20 21:59 10 meq BID ART Administration Simvastatin 10 mg 08/01/20 22:00 08/02/20 21:14 Zocor 10mg PO 08/31/20 21:59 10 mg HS ART Administration Tamsulosin HCl 0.4 mg 08/02/20 10:00 08/03/20 08:44 Flomax 0.4 Mg PO 09/01/20 09:59 0.4 mg DAILY ART Administration Vitamin E 400 u 08/02/20 10:00 08/03/20 08:45 Vitamin E 400 Unit Softgel PO 09/01/20 09:59 400 u DAILY ART Administration Discontinued Medications Generic Name Dose Route Start Last Admin Trade Name Billyq PRN Reason Stop Dose Admin Sodium Chloride 1,000 mls @ 999 mls/hr 08/01/20 15:19 08/01/20 16:29 Sodium Chloride 0.9% 1000 Ml IV 08/01/20 16:19 Infused .Q1H1M STA Infusion Sodium Chloride Confirm 08/01/20 15:26 Sodium Chloride 0.9% 1000 Ml Administered 08/01/20 15:27 Dose 1,000 mls @ ud .ROUTE .STK-MED ONE Intake & Output (Last 24 hours) 08/01/20 08/02/20 08/03/20 08/04/20 11:59 11:59 11:59 11:59 Intake Total 1878 4367 580 Output Total 1300 3075 550 Balance 578 1292 30 Weight 77.8 kg 80.7 kg Laboratory Results (Last 24 hours) 08/03/20 08/03/20 08/03/20 11:52 08:13 08:13 WBC 6.8 RBC 3.90 L Hgb 9.4 L Hct 31.5 L MCV 80.8 MCH 24.1 L MCHC 29.8 L RDW 17.2 H Plt Count 238 MPV 9.9 Gran % 66.9 H Eos # (Auto) 0.19 Absolute Lymphs (auto) 1.29 Absolute Monos (auto) 0.75 Lymphocytes % 19.0 L Monocytes % 11.0 Eosinophils % 2.8 Basophils % 0.3 Absolute Granulocytes 4.54 Basophils # 0.02 Sodium 136 L Potassium 4.2 Chloride 105 Carbon Dioxide 21 L Anion Gap 13.6 BUN 18 Creatinine 1.24 Estimated GFR 58.7 Glucose 193 H POC Glucometer 154 H Calcium 9.8 ABO Group Rh Factor Antibody Screen Crossmatch 08/03/20 08/02/20 08/02/20 07:21 22:55 20:15 WBC RBC Hgb 8.5 L D Hct 28.3 L MCV MCH MCHC RDW Plt Count MPV Gran % Eos # (Auto) Absolute Lymphs (auto) Absolute Monos (auto) Lymphocytes % Monocytes % Eosinophils % Basophils % Absolute Granulocytes Basophils # Sodium Potassium Chloride Carbon Dioxide Anion Gap BUN Creatinine Estimated GFR Glucose POC Glucometer 148 H 171 H Calcium ABO Group Rh Factor Antibody Screen Crossmatch 08/02/20 08/02/20 08/02/20 15:39 06:00 06:00 WBC RBC Hgb Hct MCV MCH MCHC RDW Plt Count MPV Gran % Eos # (Auto) Absolute Lymphs (auto) Absolute Monos (auto) Lymphocytes % Monocytes % Eosinophils % Basophils % Absolute Granulocytes Basophils # Sodium Potassium Chloride Carbon Dioxide Anion Gap BUN Creatinine Estimated GFR Glucose POC Glucometer 153 H Calcium ABO Group Rh Factor Antibody Screen Crossmatch COMPATIBLE COMPATIBLE 08/02/20 06:00 WBC RBC Hgb Hct MCV MCH MCHC RDW Plt Count MPV Gran % Eos # (Auto) Absolute Lymphs (auto) Absolute Monos (auto) Lymphocytes % Monocytes % Eosinophils % Basophils % Absolute Granulocytes Basophils # Sodium Potassium Chloride Carbon Dioxide Anion Gap BUN Creatinine Estimated GFR Glucose POC Glucometer Calcium ABO Group O Rh Factor POSITIVE Antibody Screen NEGATIVE Crossmatch Orders (Last 24 hours) Category Date Time Status Consent,Obtain ROUTINE Care 08/02/20 12:16 Active Discharge Routine Discharge 08/03/20 Ordered Discharge/Telephone Order Routine Discharge 08/03/20 Active BMP Routine Lab 08/03/20 08:13 Completed CBC W DIFF Routine Lab 08/03/20 08:13 Completed HEMOGLOBIN AND HEMATOCRIT Urgent Lab 08/02/20 22:55 Completed POCT GLUCOSE Stat Lab 08/02/20 15:39 Completed POCT GLUCOSE Stat Lab 08/02/20 20:15 Completed POCT GLUCOSE Stat Lab 08/03/20 07:21 Completed POCT GLUCOSE Stat Lab 08/03/20 11:52 Completed Patient Care Notes (Last 24 hours) 08/03/20 10:21 Case Management Note by Ekta Tenorio PATIENT CONTINUES TO DENY ANY NEEDS FOR TIME OF DC, HE WAS OFFERED AND ENCOURAGED [facility]HC AGAIN BUT CONTINUES TO REFUSE. HE PLANS TO RETURN HOME TO PRIOR LEVEL OF FUNCTIONING AT TIME OF DC. AID STATES HE IS WALKING PER SELF TO THE RESTROOM. NO ISSUES NOTED Initialized on 08/03/20 10:21 - END OF NOTE 08/02/20 17:16 Nursing Note by Karen Villa [facility] CALLED BACK WITH NEW AUDIOLOGY APPOINTMENT FOR 08/10/20 @ 2:[address] PLASCENCIA OFFICE WILL CALL TOMORROW 08/03/20 WITH A NEW APPOINTMENT. Initialized on 08/02/20 17:16 - END OF NOTE - Vitals & Intake/Output Vital Signs: Vital Signs Temperature 98.0 F 08/03/20 11:57 Pulse Rate 69 08/03/20 11:57 Respiratory Rate 16 08/03/20 11:57 Blood Pressure 180/81 08/03/20 11:57 O2 Sat by Pulse Oximetry 96 08/03/20 11:57 Intake & Output: Intake & Output 08/01/20 08/02/20 08/03/20 08/04/20 11:59 11:59 11:59 11:59 Intake Total 1878 4367 580 Output Total 1300 3075 550 Balance 578 1292 30 Weight 77.8 kg 80.7 kg - Lab Result Diagrams: 08/03/20 08:13 08/03/20 08:13 Lab Results-Last 24 Hrs: Lab Results-Last 24 Hours 08/02/20 08/02/20 08/02/20 Range/Units 06:00 06:00 06:00 WBC (4.0-10.5) K/mm3 RBC (4.1-5.6) M/mm3 Hgb (12.5-18.0) gm/dl Hct (42-50) % MCV (78-100) fl MCH (26-32) pg MCHC (32-36) g/dl RDW (11.5-14.0) % Plt Count (150-450) K/mm3 MPV (7.5-11.0) fl Gran % (36.0-66.0) % Eos # (Auto) (0-0.5) Absolute Lymphs (auto) (1.0-4.6) Absolute Monos (auto) (0.0-1.3) Lymphocytes % (24.0-44.0) % Monocytes % (0.0-12.0) % Eosinophils % (0.00-5.0) % Basophils % (0.0-0.4) % Absolute Granulocytes (1.4-6.9) Basophils # (0-0.4) Sodium (137-145) mmol/L Potassium (3.5-5.1) mmol/L Chloride (98-107) mmol/L Carbon Dioxide (22-30) mmol/L Anion Gap (5-15) MEQ/L BUN (9-20) mg/dL Creatinine (0.66-1.25) mg/dL Estimated GFR ML/MIN Glucose (74-106) mg/dL POC Glucometer (74 to 106) mg/dL Calcium (8.4-10.2) mg/dL ABO Group O Rh Factor POSITIVE Antibody Screen NEGATIVE (NEGATIVE) Crossmatch COMPATIBLE COMPATIBLE (COMPATIBLE) 08/02/20 08/02/20 08/02/20 Range/Units 15:39 20:15 22:55 WBC (4.0-10.5) K/mm3 RBC (4.1-5.6) M/mm3 Hgb 8.5 L D (12.5-18.0) gm/dl Hct 28.3 L (42-50) % MCV (78-100) fl MCH (26-32) pg MCHC (32-36) g/dl RDW (11.5-14.0) % Plt Count (150-450) K/mm3 MPV (7.5-11.0) fl Gran % (36.0-66.0) % Eos # (Auto) (0-0.5) Absolute Lymphs (auto) (1.0-4.6) Absolute Monos (auto) (0.0-1.3) Lymphocytes % (24.0-44.0) % Monocytes % (0.0-12.0) % Eosinophils % (0.00-5.0) % Basophils % (0.0-0.4) % Absolute Granulocytes (1.4-6.9) Basophils # (0-0.4) Sodium (137-145) mmol/L Potassium (3.5-5.1) mmol/L Chloride (98-107) mmol/L Carbon Dioxide (22-30) mmol/L Anion Gap (5-15) MEQ/L BUN (9-20) mg/dL Creatinine (0.66-1.25) mg/dL Estimated GFR ML/MIN Glucose (74-106) mg/dL POC Glucometer 153 H 171 H (74 to 106) mg/dL Calcium (8.4-10.2) mg/dL ABO Group Rh Factor Antibody Screen (NEGATIVE) Crossmatch (COMPATIBLE) 08/03/20 08/03/20 08/03/20 Range/Units 07:21 08:13 08:13 WBC 6.8 (4.0-10.5) K/mm3 RBC 3.90 L (4.1-5.6) M/mm3 Hgb 9.4 L (12.5-18.0) gm/dl Hct 31.5 L (42-50) % MCV 80.8 (78-100) fl MCH 24.1 L (26-32) pg MCHC 29.8 L (32-36) g/dl RDW 17.2 H (11.5-14.0) % Plt Count 238 (150-450) K/mm3 MPV 9.9 (7.5-11.0) fl Gran % 66.9 H (36.0-66.0) % Eos # (Auto) 0.19 (0-0.5) Absolute Lymphs (auto) 1.29 (1.0-4.6) Absolute Monos (auto) 0.75 (0.0-1.3) Lymphocytes % 19.0 L (24.0-44.0) % Monocytes % 11.0 (0.0-12.0) % Eosinophils % 2.8 (0.00-5.0) % Basophils % 0.3 (0.0-0.4) % Absolute Granulocytes 4.54 (1.4-6.9) Basophils # 0.02 (0-0.4) Sodium 136 L (137-145) mmol/L Potassium 4.2 (3.5-5.1) mmol/L Chloride 105 (98-107) mmol/L Carbon Dioxide 21 L (22-30) mmol/L Anion Gap 13.6 (5-15) MEQ/L BUN 18 (9-20) mg/dL Creatinine 1.24 (0.66-1.25) mg/dL Estimated GFR 58.7 ML/MIN Glucose 193 H (74-106) mg/dL POC Glucometer 148 H (74 to 106) mg/dL Calcium 9.8 (8.4-10.2) mg/dL ABO Group Rh Factor Antibody Screen (NEGATIVE) Crossmatch (COMPATIBLE) 08/03/20 Range/Units 11:52 WBC (4.0-10.5) K/mm3 RBC (4.1-5.6) M/mm3 Hgb (12.5-18.0) gm/dl Hct (42-50) % MCV (78-100) fl MCH (26-32) pg MCHC (32-36) g/dl RDW (11.5-14.0) % Plt Count (150-450) K/mm3 MPV (7.5-11.0) fl Gran % (36.0-66.0) % Eos # (Auto) (0-0.5) Absolute Lymphs (auto) (1.0-4.6) Absolute Monos (auto) (0.0-1.3) Lymphocytes % (24.0-44.0) % Monocytes % (0.0-12.0) % Eosinophils % (0.00-5.0) % Basophils % (0.0-0.4) % Absolute Granulocytes (1.4-6.9) Basophils # (0-0.4) Sodium (137-145) mmol/L Potassium (3.5-5.1) mmol/L Chloride (98-107) mmol/L Carbon Dioxide (22-30) mmol/L Anion Gap (5-15) MEQ/L BUN (9-20) mg/dL Creatinine (0.66-1.25) mg/dL Estimated GFR ML/MIN Glucose (74-106) mg/dL POC Glucometer 154 H (74 to 106) mg/dL Calcium (8.4-10.2) mg/dL ABO Group Rh Factor Antibody Screen (NEGATIVE) Crossmatch (COMPATIBLE) Micro Results-Entire Visit: Accuchecks Date 08/03/20 Date 08/03/20 Date 08/02/20 Time 12:01 Time 07:48 Time 20:15 Discharge Exam General Appearance: no apparent distress, alert Neurologic Exam: alert, oriented x 3, cooperative, normal mood/affect, nml cerebellar function, sensation nml, No motor deficits Eye Exam: PERRL, EOMI, eyes nml inspection Ears, Nose, Throat Exam: normal ENT inspection, pharynx normal, moist mucous membranes Neck Exam: normal inspection, non-tender, supple, full range of motion Respiratory Exam: normal breath sounds, lungs clear, No respiratory distress Cardiovascular Exam: regular rate/rhythm, normal heart sounds Gastrointestinal/Abdomen Exam: soft, No tenderness, No mass Male Genitalia Exam: deferred Rectal Exam: deferred Back Exam: normal inspection, normal range of motion, No CVA tenderness, No vertebral tenderness Extremity Exam: normal inspection, normal range of motion Skin Exam: normal color, warm, dry Final Diagnosis/Problem List - Final Discharge Diagnosis/Problem (1) Anemia Current Visit: Yes Status: Acute Code(s): D64.9 - ANEMIA, UNSPECIFIED (2) Acute on chronic renal failure Current Visit: Yes Status: Resolved Code(s): N17.9 - ACUTE KIDNEY FAILURE, UNSPECIFIED; N18.9 - CHRONIC KIDNEY DISEASE, UNSPECIFIED (3) Hypertension Current Visit: Yes Status: Chronic Code(s): I10 - ESSENTIAL (PRIMARY) HYPERTENSION (4) Type 2 diabetes mellitus Current Visit: Yes Status: Chronic (5) Weakness Current Visit: Yes Status: Resolved Code(s): R53.1 - WEAKNESS - Discharge Discharge Date: 08/03/20 Disposition: Home, Self-Care Condition: Stable Prescriptions: No Action Aspirin [Aspir 81] 81 mg PO DAILY Isosorbide Mononitrate 30 mg [Imdur 30 MG] 30 mg PO DAILY Potassium Chloride 10 Meq Tab* [Klor Con 10 MEQ] 10 meq PO BID Pravastatin Sodium 10 mg [Pravachol 10 MG] 10 mg PO HS Carvedilol 6.25 mg [Coreg 6.25 MG] 3.125 mg PO BID Lisinopril/Hydrochlorothiazide [Lisinopril-Hctz 20-25 mg Tab] 20 - 25 mg PO DAILY Tamsulosin HCl 0.4 mg [Flomax 0.4 MG] 0.4 mg PO DAILY Oxybutynin Chloride [Oxybutynin Chloride ER] 5 mg PO DAILY PARoxetine HCL [Paroxetine HCl] 10 mg PO DAILY Folic Acid 1 mg PO DAILY Acetaminophen 500 mg [Tylenol Extra Strength 500 mg] 500 - 1,000 mg PO Q6HPRN PRN PRN Reason: Pain And/Or Fever Clopidogrel Bisulfate 75 mg [PLAVIX 75 MG Tablet] 75 mg PO DAILY Omeprazole 40 mg PO BID Metformin HCl [Glucophage] 1,000 mg PO BID Vitamin E 100 unit PO BID Glimepiride 2 mg [Amaryl 2 MG] 2 mg PO DAILY Additional Instructions: AUDIOLOGY APPOINTMENT RESCHEDULED FOR 08/10/20 @ 2:30PM. Follow up with: TIMOTHY PONCE MD [Primary Care Provider] - 08/12/20 10:00 am MINI PLASCENCIA [NON-STAFF PHY W/O PRIVILEGES] - 08/10/20 2:30 pm
== END 2020-08-03 14:59 | disposition home or self-care (01) ==
LOC: ED 14:50 → MED SURG 18:00
PROVIDERS: ADMIT General Practice; ATTEND General Practice
DX: D64.9 Anemia, unspecified (principal); N17.9 Acute kidney failure, unspecified; E11.22 Type 2 diabetes mellitus with diabetic chronic kidney disease; I13.10 Hypertensive heart and chronic kidney disease without heart failure, with stage 1 through stage 4 chronic kidney disease, or unspecified chronic kidney disease; R19.7 Diarrhea, unspecified; I10 Essential (primary) hypertension; R53.1 Weakness; Z79.899 Other long term (current) drug therapy; Z79.01 Long term (current) use of anticoagulants; Z86.73 Personal history of transient ischemic attack (TIA), and cerebral infarction without residual deficits
CPT/HCPCS: 36415; 36430; 80048; 80053; 81001; 82150; 82947; 83036; 83605; 83690; 85014; 85018; 85025; 86850; 86900; 86901; 86922; 93005; 93268; 96360; 99285; 99291; G0378; P9016; U0003; A9270-GY

== ENCOUNTER 2020-12-30 16:35 | Observation (INO) | payer MEDICARE ==
[2020-12-30 17:03] LABS: BASOPHIL % 0.3 % (0.0-0.4); Basophil (Absolute #) 0.02 (0-0.4); Eosinophil % 2.6 % (0.00-5.0); Eosinophil (Absolute #) 0.18 (0-0.5); Hematocrit 39.6 % (42-50); Hemoglobin 12.6 gm/dl (12.5-18.0); Lymphocyte (Absolute #) 1.19 (1.0-4.6); Lymphocytes % 17.4 % (24.0-44.0); Mean Cell Volume 93.6 fl (78-100); Mean Corpuscular Hemoglobin 29.8 pg (26-32); Mean Corpuscular Hgb Concent. 31.8 g/dl (32-36); Mean Platelet Volume 10.9 fl (7.5-11.0); Monocyte (Absolute #) 0.63 (0.0-1.3); Monocytes % 9.2 % (0.0-12.0); Neutrophil % 70.5 % (36.0-66.0); Platelet Count 210 K/mm3 (150-450); Red Blood Count 4.23 M/mm3 (4.1-5.6); Red Cell Distribution Width 14.7 % (11.5-14.0); White Blood Count 6.8 K/mm3 (4.0-10.5)
--- NOTE | 2020-12-30 17:16 | XRAY ---
Indication: Status post fall. Comparison: February 21, 2020. Portable apical lordotic chest again demonstrates normal heart and lungs. Bony thorax intact again with mild osteopenia and degenerative changes. No new/acute findings.
[2020-12-30 17:17] LABS: MAGNESIUM 1.8 mg/dL (1.6-2.3)
[2020-12-30 17:18] LABS: ALBUMIN 3.8 g/dL (3.5-5.0); ANION GAP 15.7 MEQ/L (5-15); BILIRUBIN,TOTAL 0.5 mg/dL (0.2-1.3); Calcium 10.1 mg/dL (8.4-10.2); Creatinine 1 1.37 mg/dL (0.66-1.25); EST GLOMERULAR FILTRATION RATE 52.4 ML/MIN; Potassium 4.3 mmol/L (3.5-5.1); Total Protein 6.4 g/dL (6.3-8.2)
--- NOTE | 2020-12-30 17:47 | ERPHSYRPT ---
- History of Present Illness Time Seen by Provider: 12/30/20 16:38 Source: patient, EMS Exam Limitations: no limitations Patient Subjective Stated Complaint: Patient states he became weak on the toilet and brought himself to the floor, crawled to the phone to call 911. States he did not hit his head. States he was lying on the ground 30 min. Triage Nursing Assessment: Patient to ED for weakness via EMS. Patient alert and oriented x3. No injuries noted. Physician History: 85 years old male with multiple medical problems is brought in the ER by EMS with chief complaint of generalized weakness. Patient report he was on the toilet, got weak all over and slowly brought him down and did hit his head. Denies any loss of consciousness. Patient report he was so weak that he could not get up for almost 30 minutes before he could call someone. Denies any dizziness or lightheadedness. Denies any chest pain palpitations or shortness of breath. No abdominal pain nausea or vomiting. Denies any diarrhea. Does not report any decreased oral intake. No fever or chills reported. Patient is feeling a little better but still overall weak. Timing/Duration: hour(s) (1), constant, sudden Severity: moderate Associated Symptoms: weakness, No nausea, No vomiting, No abdominal pain, No shortness of breath, No heartburn, No diaphoresis, No cough, No chills, No chest pain, No fever, No headaches, No loss of appetite, No malaise, No syncope, No seizure Allergies/Adverse Reactions: No Known Drug Allergies Allergy (Verified 12/30/20 16:52) Home Medications: Aspirin [Aspir 81] 81 mg PO DAILY 07/23/12 [History] Isosorbide Mononitrate 30 mg [Imdur 30 MG] 30 mg PO DAILY 09/21/12 [History] Potassium Chloride 10 Meq Tab* [Klor Con 10 MEQ] 10 meq PO BID 09/21/12 [History] Pravastatin Sodium 10 mg [Pravachol 10 MG] 10 mg PO HS 09/21/12 [History] Carvedilol 6.25 mg [Coreg 6.25 MG] 3.125 mg PO BID 02/04/15 [History] Lisinopril/Hydrochlorothiazide [Lisinopril-Hctz 20-25 mg Tab] 20 - 25 mg PO DAILY 02/04/15 [History] Tamsulosin HCl 0.4 mg [Flomax 0.4 MG] 0.4 mg PO DAILY 08/08/17 [History] Acetaminophen 500 mg [Tylenol Extra Strength 500 mg] 500 - 1,000 mg PO Q6HPRN PRN 07/28/19 [History] Folic Acid 1 mg PO DAILY 07/28/19 [History] Oxybutynin Chloride [Oxybutynin Chloride ER] 5 mg PO DAILY 07/28/19 [History] PARoxetine HCL [Paroxetine HCl] 10 mg PO DAILY 07/28/19 [History] Clopidogrel Bisulfate 75 mg [PLAVIX 75 MG Tablet] 75 mg PO DAILY 04/21/20 [History] Omeprazole 40 mg PO BID 04/22/20 [History] Vitamin E 100 unit PO BID 08/01/20 [History] Empagliflozin/Metformin HCl [Synjardy Xr 25-1,000 mg Tablet] 2 each PO BID 12/30/20 [History] Hx Tetanus, Diphtheria Vaccination/Date Given: Yes Hx Influenza Vaccination/Date Given: Yes Hx Pneumococcal Vaccination/Date Given: Yes Travel Risk - International Travel Have you traveled outside of the country in past 3 weeks: No - Coronavirus Screening Are you exhibiting any of the following symptoms?: No Close contact with a COVID-19 positive Pt in past 14-21 Days: No - Vaccine Status Have you recieved a Covid-19 vaccination: Yes 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 - Vaccination Dates Dates if Unknown: spring Comment: unknown - Review of Systems Constitutional: Fatigue, Weakness Eyes: No Symptoms Ears, Nose, & Throat: No Symptoms Respiratory: No Symptoms Cardiac: No Symptoms Abdominal/Gastrointestinal: No Symptoms Genitourinary Symptoms: No Symptoms Musculoskeletal: Fall Skin: No Symptoms Neurological: No Symptoms Psychological: No Symptoms Endocrine: No Symptoms Hematologic/Lymphatic: No Symptoms - Past Medical History Pertinent Past Medical History: Yes Neurological History: TIA ENT History: No Pertinent History Cardiac History: Coronary Artery Disease, Hypertension Respiratory History: No Pertinent History Endocrine Medical History: Diabetes Type II Musculoskeletal History: Arthritis GI Medical History: GI Bleed History: No Pertinent History Psycho-Social History: No Pertinent History Male Reproductive Disorders: No Pertinent History - Past Surgical History Past Surgical History: Yes Neuro Surgical History: No Pertinent History Cardiac: Cardiac Catheterization, Cardiac Stent Respiratory: No Pertinent History Gastrointestinal: Hernia Repair Genitourinary: No Pertinent History Musculoskeletal: Orthopedic Surgery Male Surgical History: No Pertinent History Other Surgical History: Nasal surgery - Social History Smoking Status: Former smoker Exposure to second hand smoke: No Drug Use: none Patient Lives Alone: Yes Significant Family History: no pertinent family hx - Nursing Vital Signs Nursing Vital Signs: Initial Vital Signs Temperature 97.2 F 12/30/20 16:39 Pulse Rate 67 12/30/20 16:39 Blood Pressure 156/71 12/30/20 16:39 O2 Sat by Pulse Oximetry 98 12/30/20 16:39 Pain Scale Pain Intensity 0 - Physical Exam General Appearance: no apparent distress, alert Eye Exam: PERRL/EOMI, eyes nml inspection Ears, Nose, Throat Exam: normal ENT inspection, TMs normal, pharynx normal Neck Exam: normal inspection, non-tender, supple, full range of motion Respiratory Exam: normal breath sounds, lungs clear, No chest tenderness Cardiovascular Exam: regular rate/rhythm, normal heart sounds Gastrointestinal/Abdomen Exam: soft, normal bowel sounds, No tenderness Back Exam: normal inspection, normal range of motion Extremity Exam: normal inspection, normal range of motion, pelvis stable Neurologic Exam: alert, oriented x 3, cooperative, subassemblies wirer II-XII nml as tested, normal mood/affect, nml cerebellar function, sensation nml, No motor deficits Skin Exam: normal color SpO2 Interpretation: normal SpO2: 98 O2 Delivery: Room Air - Course EKG Interpreted by Me: RATE (71), NORMAL INTERVALS, Q-wave (, AnteroseptalInferior) Ordered Tests: Active Orders 24 hr Category Date Time Status Bedrest ROUTINE Activity 12/30/20 20:34 Active Up With Assistance ROUTINE Activity 12/30/20 20:34 Active Code Status Order ROUTINE Care 12/30/20 20:34 Active Code Status Order ROUTINE Care 12/30/20 20:34 Completed EKG-ER Only STAT Care 12/30/20 16:43 Completed Fall Protocol ROUTINE Care 12/30/20 20:34 Completed IV Care Q6H Care 12/30/20 20:34 Completed IV Care Q6H Care 12/30/20 20:34 Completed IV Insertion STAT Care 12/30/20 16:43 Completed POCT Glucose Check ACHS Care 12/30/20 20:[address] in Observation ROUTINE Care 12/30/20 20:34 Active Francisco TellydoraAshley ROUTINE Care 12/30/20 20:34 Active CERVICAL SPINE WO CONTRAST [CT] Stat Exams 12/30/20 16:42 Completed CHEST 1 VIEW (PORTABLE) Stat Exams 12/30/20 16:43 Completed HEAD WITHOUT CONTRAST [CT] Stat Exams 12/30/20 16:43 Completed CBC W DIFF AM.LAB Lab 12/31/20 05:00 Completed CBC W DIFF Stat Lab 12/30/20 17:00 Completed CK (IN-HOUSE) [CK-Creatinine Phosphokinase] Stat Lab 12/30/20 17:00 Completed CMP AM.LAB Lab 12/31/20 04:45 Completed CMP Stat Lab 12/30/20 17:00 Completed Lactic Acid Stat Lab 12/30/20 16:56 Completed MG [MAGNESIUM] Stat Lab 12/30/20 17:00 Completed TROPONIN Q3H Lab 12/30/20 17:00 Completed TROPONIN Q3H Lab 12/30/20 18:58 Completed TROPONIN Q3H Lab 12/30/20 22:08 Completed TROPONIN Q3H Lab 12/31/20 01:42 Completed TROPONIN Q3H Lab 12/31/20 04:45 Completed UA W/RFX UR CULTURE Stat Lab 12/30/20 18:30 Completed Medication Summary Generic Name Dose Route Start Last Admin Trade Name Freq PRN Reason Stop Dose Admin Acetaminophen 0 mg 12/31/20 07:33 Tylenol Extra Strength 500 Mg PO 01/30/21 07:32 Q6HPRN PRN PAIN AND/OR FEVER Aspirin 81 mg 12/31/20 10:00 12/31/20 08:38 Ecotrin 81 Mg PO 01/30/21 09:59 81 mg DAILY ART Administration Carvedilol 3.125 mg 12/30/20 23:30 12/31/20 08:39 Coreg 3.125 Mg PO 01/29/21 23:29 3.125 mg BID ART Administration Clopidogrel Bisulfate 75 mg 12/31/20 10:00 12/31/20 08:38 Plavix 75 Mg Tablet PO 01/30/21 09:59 75 mg DAILY ART Administration Famotidine 20 mg 12/30/20 22:00 12/31/20 08:41 Pepcid 20 Mg Vial IV 07/31/21 21:59 20 mg Q12HT ART Administration Folic Acid 1 mg 12/31/20 10:00 12/31/20 08:38 Folate 1 Mg PO 01/30/21 09:59 1 mg DAILY ART Administration Hydrochlorothiazide 12.5 mg 12/31/20 10:00 12/31/20 08:39 Hydrodiuril 25 Mg PO 01/30/21 09:59 12.5 mg DAILY ART Administration Sodium Chloride 1,000 mls @ 100 mls/hr 12/30/20 20:34 12/31/20 05:07 Sodium Chloride 0.9% 1000 Ml IV 01/29/21 20:33 100 mls/hr .Q10H ART Administration Insulin Human Lispro 0 unit 12/30/20 20:34 Humalog SQ 01/29/21 20:33 UD PRN HYPERGLYCEMIA Isosorbide Mononitrate 30 mg 12/31/20 10:00 12/31/20 08:38 Imdur 30 Mg PO 01/30/21 09:59 30 mg DAILY ART Administration Lisinopril 10 mg 12/31/20 10:00 12/31/20 08:38 Zestril 10 Mg PO 01/30/21 09:59 10 mg DAILY ART Administration Miscellaneous Information 1 each 12/31/20 07:45 Medication Intervention PO 01/30/21 07:44 .RN TO CHECK ON ART Multivitamins/Minerals 1 tab 12/31/20 10:00 12/31/20 08:40 Ocuvite Tablet PO 01/30/21 09:59 1 tab BID ART Administration Ondansetron HCl 4 mg 12/30/20 20:34 Zofran 4 Mg/2 Ml Vial IV 01/29/21 20:33 Q6H PRN PRN NAUSEA/VOMITING Oxybutynin Chloride 5 mg 12/31/20 10:00 12/31/20 08:38 Ditropan Xl 5 Mg PO 01/30/21 09:59 5 mg DAILY ART Administration Pantoprazole Sodium 40 mg 12/31/20 10:00 12/31/20 08:39 Protonix 40mg Tablet PO 01/29/21 23:29 40 mg BID ART Administration Potassium Chloride 10 meq 12/30/20 23:30 12/31/20 08:38 Klor Con 10 Meq PO 01/29/21 23:29 10 meq BID ART Administration Simvastatin 10 mg 12/30/20 23:30 12/30/20 23:43 Zocor 10mg PO 01/29/21 23:29 10 mg HS ART Administration Tamsulosin HCl 0.4 mg 12/31/20 10:00 12/31/20 08:39 Flomax 0.4 Mg PO 01/30/21 09:59 0.4 mg DAILY ART Administration Discontinued Medications Generic Name Dose Route Start Last Admin Trade Name Freq PRN Reason Stop Dose Admin Acetaminophen 650 mg 12/30/20 20:34 Tylenol 325 Mg PO 01/29/21 20:33 Q4H PRN PRN PAIN AND/OR FEVER Albuterol/Ipratropium 3 ml 12/30/20 20:34 Duoneb 0.5-3 Mg/3 Ml Neb IH 01/29/21 20:33 Q4HPRN PRN SHORTNESS OF BREATH/WHEEZING Sodium Chloride 1,000 mls @ 100 mls/hr 12/30/20 18:45 12/30/20 18:53 Sodium Chloride 0.9% 1000 Ml IV 01/29/21 18:44 100 mls/hr .Q10H ART Administration Sodium Chloride Confirm 12/30/20 18:50 Sodium Chloride 0.9% 1000 Ml Administered 12/30/20 18:51 Dose 1,000 mls @ ud .ROUTE .STK-MED ONE Pantoprazole Sodium 80 mg 12/30/20 23:30 12/30/20 23:42 Protonix 40mg Tablet PO 01/29/21 23:29 80 mg BID ART Administration Lab/Rad Data: Laboratory Result Diagrams 12/30/20 17:00 12/30/20 17:00 Laboratory Results 12/30/20 12/30/20 12/30/20 Range/Units 19:06 18:58 18:30 WBC (4.0-10.5) K/mm3 RBC (4.1-5.6) M/mm3 Hgb (12.5-18.0) gm/dl Hct (42-50) % MCV (78-100) fl MCH (26-32) pg MCHC (32-36) g/dl RDW (11.5-14.0) % Plt Count (150-450) K/mm3 MPV (7.5-11.0) fl Gran % (36.0-66.0) % Eos # (Auto) (0-0.5) Absolute Lymphs (auto) (1.0-4.6) Absolute Monos (auto) (0.0-1.3) Lymphocytes % (24.0-44.0) % Monocytes % (0.0-12.0) % Eosinophils % (0.00-5.0) % Basophils % (0.0-0.4) % Absolute Granulocytes (1.4-6.9) Basophils # (0-0.4) Sodium (137-145) mmol/L Potassium (3.5-5.1) mmol/L Chloride (98-107) mmol/L Carbon Dioxide (22-30) mmol/L Anion Gap (5-15) MEQ/L BUN (9-20) mg/dL Creatinine (0.66-1.25) mg/dL Estimated GFR ML/MIN Glucose (74-106) mg/dL Lactic Acid (0.4-2.0) Calcium (8.4-10.2) mg/dL Magnesium (1.6-2.3) mg/dL Total Bilirubin (0.2-1.3) mg/dL AST (17-59) U/L ALT (0-50) U/L Alkaline Phosphatase (38-126) U/L Creatine Kinase (55-170) U/L Troponin I 0.016 (0.000-0.034) ng/mL Serum Total Protein (6.3-8.2) g/dL Albumin (3.5-5.0) g/dL Urine Color YELLOW (YELLOW) Urine Appearance CLEAR (CLEAR) Urine pH 5.0 (5-6) Ur Specific [place] 1.016 (1.005-1.025) Urine Protein NEGATIVE (Negative) Urine Ketones NEGATIVE (NEGATIVE) Urine Blood NEGATIVE (0-5) [place]/ul Urine Nitrite NEGATIVE (NEGATIVE) Urine Bilirubin NEGATIVE (NEGATIVE) Urine Urobilinogen NEGATIVE (0-1) mg/dL Ur Leukocyte Esterase NEGATIVE (NEGATIVE) Urine WBC (Auto) NONE (0-5) /HPF Urine RBC (Auto) NONE (0-2) /HPF U Epithel Cells (Auto) NONE (FEW) /HPF Urine Bacteria (Auto) NONE (NEGATIVE) /HPF Urine Mucus (Auto) SLIGHT (NEGATIVE) /HPF Urine Culture Reflexed NO (NO) Urine Glucose NEGATIVE (NEGATIVE) mg/dL SARS-CoV-2 (PCR) NEGATIVE (NEGATIVE) 12/30/20 12/30/20 12/30/20 Range/Units 17:00 17:00 17:00 WBC (4.0-10.5) K/mm3 RBC (4.1-5.6) M/mm3 Hgb (12.5-18.0) gm/dl Hct (42-50) % MCV (78-100) fl MCH (26-32) pg MCHC (32-36) g/dl RDW (11.5-14.0) % Plt Count (150-450) K/mm3 MPV (7.5-11.0) fl Gran % (36.0-66.0) % Eos # (Auto) (0-0.5) Absolute Lymphs (auto) (1.0-4.6) Absolute Monos (auto) (0.0-1.3) Lymphocytes % (24.0-44.0) % Monocytes % (0.0-12.0) % Eosinophils % (0.00-5.0) % Basophils % (0.0-0.4) % Absolute Granulocytes (1.4-6.9) Basophils # (0-0.4) Sodium 141 (137-145) mmol/L Potassium 4.3 (3.5-5.1) mmol/L Chloride 109 H (98-107) mmol/L Carbon Dioxide 20 L (22-30) mmol/L Anion Gap 15.7 H (5-15) MEQ/L BUN 23 H (9-20) mg/dL Creatinine 1.37 H (0.66-1.25) mg/dL Estimated GFR 52.4 ML/MIN Glucose 139 H (74-106) mg/dL Lactic Acid (0.4-2.0) Calcium 10.1 (8.4-10.2) mg/dL Magnesium 1.8 (1.6-2.3) mg/dL Total Bilirubin 0.50 (0.2-1.3) mg/dL AST 24 (17-59) U/L ALT 17 (0-50) U/L Alkaline Phosphatase 76 (38-126) U/L Creatine Kinase 93 (55-170) U/L Troponin I 0.013 (0.000-0.034) ng/mL Serum Total Protein 6.4 (6.3-8.2) g/dL Albumin 3.8 (3.5-5.0) g/dL Urine Color (YELLOW) Urine Appearance (CLEAR) Urine pH (5-6) Ur Specific [place] (1.005-1.025) Urine Protein (Negative) Urine Ketones (NEGATIVE) Urine Blood (0-5) [place]o/ul Urine Nitrite (NEGATIVE) Urine Bilirubin (NEGATIVE) Urine Urobilinogen (0-1) mg/dL Ur Leukocyte Esterase (NEGATIVE) Urine WBC (Auto) (0-5) /HPF Urine RBC (Auto) (0-2) /HPF U Epithel Cells (Auto) (FEW) /HPF Urine Bacteria (Auto) (NEGATIVE) /HPF Urine Mucus (Auto) (NEGATIVE) /HPF Urine Culture Reflexed (NO) Urine Glucose (NEGATIVE) mg/dL SARS-CoV-2 (PCR) (NEGATIVE) 12/30/20 12/30/20 Range/Units 17:00 16:56 WBC 6.8 (4.0-10.5) K/mm3 RBC 4.23 (4.1-5.6) M/mm3 Hgb 12.6 (12.5-18.0) gm/dl Hct 39.6 L (42-50) % MCV 93.6 (78-100) fl MCH 29.8 (26-32) pg MCHC 31.8 L (32-36) g/dl RDW 14.7 H (11.5-14.0) % Plt Count 210 (150-450) K/mm3 MPV 10.9 (7.5-11.0) fl Gran % 70.5 H (36.0-66.0) % Eos # (Auto) 0.18 (0-0.5) Absolute Lymphs (auto) 1.19 (1.0-4.6) Absolute Monos (auto) 0.63 (0.0-1.3) Lymphocytes % 17.4 L (24.0-44.0) % Monocytes % 9.2 (0.0-12.0) % Eosinophils % 2.6 (0.00-5.0) % Basophils % 0.3 (0.0-0.4) % Absolute Granulocytes 4.80 (1.4-6.9) Basophils # 0.02 (0-0.4) Sodium (137-145) mmol/L Potassium (3.5-5.1) mmol/L Chloride (98-107) mmol/L Carbon Dioxide (22-30) mmol/L Anion Gap (5-15) MEQ/L BUN (9-20) mg/dL Creatinine (0.66-1.25) mg/dL Estimated GFR ML/MIN Glucose (74-106) mg/dL Lactic Acid 2.4 H (0.4-2.0) Calcium (8.4-10.2) mg/dL Magnesium (1.6-2.3) mg/dL Total Bilirubin (0.2-1.3) mg/dL AST (17-59) U/L ALT (0-50) U/L Alkaline Phosphatase (38-126) U/L Creatine Kinase (55-170) U/L Troponin I (0.000-0.034) ng/mL Serum Total Protein (6.3-8.2) g/dL Albumin (3.5-5.0) g/dL Urine Color (YELLOW) Urine Appearance (CLEAR) Urine pH (5-6) Ur Specific [place] (1.005-1.025) Urine Protein (Negative) Urine Ketones (NEGATIVE) Urine Blood (0-5) [place]/ul Urine Nitrite (NEGATIVE) Urine Bilirubin (NEGATIVE) Urine Urobilinogen (0-1) mg/dL Ur Leukocyte Esterase (NEGATIVE) Urine WBC (Auto) (0-5) /HPF Urine RBC (Auto) (0-2) /HPF U Epithel Cells (Auto) (FEW) /HPF Urine Bacteria (Auto) (NEGATIVE) /HPF Urine Mucus (Auto) (NEGATIVE) /HPF Urine Culture Reflexed (NO) Urine Glucose (NEGATIVE) mg/dL SARS-CoV-2 (PCR) (NEGATIVE) - Progress Progress: improved, re-examined Progress Note: 12/30/20 18:32 85 years old is evaluated for generalized weakness, near syncopal episode and fall with hitting his head. Negative CT head and cervical spine for acute trauma related findings. Negative initial troponin, grossly unremarkable chemistries. No UTI. Normal white count. Normal CK level. Patient is generally weak, started on gentle hydration. Discussed with primary care for patient, reviewed history, work-up and patient is accepted for observation admission. Discussed with .: Devan Will see patient in: hospital (observation) Counseled pt/family regarding: lab results, diagnosis, rad results - Departure Departure Disposition: Observation Clinical Impression: General weakness Fall Qualifiers: Encounter type: initial encounter Qualified Code(s): W19.XXXA - Unspecified fall, initial encounter Condition: Stable Critical Care Time: No
[2020-12-30 18:41] LABS: Appearance CLEAR (CLEAR); Bilirubin NEGATIVE (NEGATIVE); Blood NEGATIVE Ery/ul (0-5); Glucose NEGATIVE (NEGATIVE); Ketones NEGATIVE (NEGATIVE); Leukocyte Esterase NEGATIVE (NEGATIVE); Mucus SLIGHT /HPF (NEGATIVE); Nitrite NEGATIVE (NEGATIVE); Protein,Urine Dip NEGATIVE (Negative); Specific Gravity 1.016 (1.005-1.025); Urobilinogen NEGATIVE mg/dL (0-1)
[2020-12-30] MEDS ORDERED: Sodium Chloride 0.9% 1000 ML 1,000 ML IV SCH (18:45)
[2020-12-30] MEDS ORDERED: Sodium Chloride 0.9% 1000 ML 1,000 ML ONE (18:50)
[2020-12-30] MEDS ORDERED: Zofran 4 MG/2 ML VIAL IV PRN (20:34)
[2020-12-30] MEDS ORDERED: HUMALOG SQ PRN (20:34)
[2020-12-30] MEDS ORDERED: DUONEB 0.5-3 MG/3 ml Neb IH PRN (20:34)
[2020-12-30] MEDS ORDERED: TYLENOL 325 MG PO PRN (20:34)
[2020-12-30] MEDS ORDERED: Protonix 40MG Tablet PO SCH (23:30)
[2020-12-30] MEDS ORDERED: Zocor 10MG PO SCH (23:30)
[2020-12-30] MEDS: Coreg 3.125 MG PO SCH (23:43)
[2020-12-30] MEDS: Pepcid 20 MG VIAL IV SCH (23:43)
[2020-12-30] MEDS: Klor Con 10 MEQ PO SCH (23:43)
[2020-12-30] MEDS: Sodium Chloride 0.9% 1000 ML 1,000 ML IV SCH (23:47)
[2020-12-31 05:06] LABS: BASOPHIL % 0.2 % (0.0-0.4); Basophil (Absolute #) 0.01 (0-0.4); Eosinophil % 4.2 % (0.00-5.0); Eosinophil (Absolute #) 0.22 (0-0.5); Hematocrit 38.1 % (42-50); Hemoglobin 12.1 gm/dl (12.5-18.0); Lymphocyte (Absolute #) 1.54 (1.0-4.6); Lymphocytes % 29.4 % (24.0-44.0); Mean Cell Volume 94.3 fl (78-100); Mean Corpuscular Hgb Concent. 31.8 g/dl (32-36); Mean Platelet Volume 10.3 fl (7.5-11.0); Monocyte (Absolute #) 0.66 (0.0-1.3); Monocytes % 12.6 % (0.0-12.0); Neutrophil % 53.6 % (36.0-66.0); Platelet Count 202 K/mm3 (150-450); Red Blood Count 4.04 M/mm3 (4.1-5.6); Red Cell Distribution Width 14.9 % (11.5-14.0); White Blood Count 5.2 K/mm3 (4.0-10.5)
[2020-12-31] MEDS: Sodium Chloride 0.9% 1000 ML 1,000 ML IV SCH (05:07)
[2020-12-31 05:24] LABS: ALBUMIN 3.2 g/dL (3.5-5.0); ALKALINE PHOSPHATASE 78 U/L (38-126); ANION GAP 9.6 MEQ/L (5-15); BLOOD UREA NITROGEN 19 mg/dL (9-20); CHLORIDE 107 mmol/L (98-107); Calcium 9.6 mg/dL (8.4-10.2); Carbon Dioxide 24 mmol/L (22-30); Creatinine 1 1.14 mg/dL (0.66-1.25); EST GLOMERULAR FILTRATION RATE > 60.0 ML/MIN; Glucose 142 mg/dL (74-106); Potassium 3.8 mmol/L (3.5-5.1); SGOT/AST 20 U/L (17-59); SGPT/ALT 15 U/L (0-50); SODIUM 137 mmol/L (137-145); Total Protein 5.6 g/dL (6.3-8.2)
[2020-12-31] MEDS ORDERED: TYLENOL EXTRA STRENGTH 500 MG PO PRN (07:33)
[2020-12-31 07:35] VITALS: PULSE 63
[2020-12-31] MEDS ORDERED: MEDICATION INTERVENTION PO SCH (07:45)
[2020-12-31] MEDS: Klor Con 10 MEQ PO SCH (08:38)
[2020-12-31] MEDS: Coreg 3.125 MG PO SCH (08:39)
[2020-12-31] MEDS: Pepcid 20 MG VIAL IV SCH (08:41)
--- NOTE | 2020-12-31 08:49 | XRAY ---
Indication: Status post fall. Multiple contiguous axial images obtained through the cervical spine. Sagittal and coronal reformatted images obtained. Comparison: February 21, 2020. Osseous structures remain demineralized. Axial images again negative for acute fracture, suspicious bony lesions, or spinal stenosis stenosis. There remains mild/moderate multilevel degenerative endplate spurring and bilateral degenerative facet hypertrophy again greatest at the C3-C4 level. Stable atlantoaxial degenerative arthropathy. Sagittal and coronal reformatted images again demonstrates 2 mm C2 degenerative anterolisthesis. No acute compression fracture or jumped facet. Normal-appearing craniocervical junction. Visualized noncontrasted soft tissues again demonstrates moderate carotid calcifications bilaterally. Lung apices demonstrates stable tiny right apical calcified granuloma. Impression: Again osteopenia, multilevel degenerative spondylosis, and minimal grade 1 C2 spondylolisthesis. No new/acute findings.
--- NOTE | 2020-12-31 08:52 | XRAY ---
Indication: Status post fall. Multiple contiguous axial images obtained through the head without contrast. Comparison: February 21, 2020. 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 No acute intracranial hemorrhage, abnormal extra-axial fluid collection, or mass effect. Fourth ventricle is midline without hydrocephalus. Bony calvarium intact. Stable right ethmoid sinus mass/polyp. Remaining visualized paranasal sinuses and mastoid air cells are clear. 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
[2020-12-31] MEDS ORDERED: Zestril 10 MG PO SCH (10:00)
[2020-12-31] MEDS ORDERED: FOLIC ACID 1 MG PO SCH (10:00)
[2020-12-31] MEDS ORDERED: METFORMIN HCL PO SCH (10:00)
[2020-12-31] MEDS ORDERED: Flomax 0.4 MG PO SCH (10:00)
[2020-12-31] MEDS ORDERED: EMPAGLIFLOZIN PO SCH (10:00)
[2020-12-31] MEDS ORDERED: Ditropan XL 5 MG PO SCH (10:00)
[2020-12-31] MEDS ORDERED: [UNRECOGNIZED DRUG - OTHER] PO SCH (10:00)
[2020-12-31] MEDS ORDERED: hydroDIURIL 25 MG PO SCH (10:00)
[2020-12-31] MEDS ORDERED: ECOTRIN 81 MG PO SCH (10:00)
[2020-12-31] MEDS ORDERED: FOLATE 1 MG PO SCH (10:00)
[2020-12-31] MEDS ORDERED: Imdur 30 MG PO SCH (10:00)
[2020-12-31] MEDS ORDERED: PLAVIX 75 MG Tablet PO SCH (10:00)
[2020-12-31] MEDS ORDERED: HYDROCHLOROTHIAZIDE PO SCH (10:00)
[2020-12-31] MEDS ORDERED: Protonix 40MG Tablet PO SCH (10:00)
[2020-12-31] MEDS ORDERED: Ocuvite Tablet PO SCH (10:00)
[2020-12-31] MEDS ORDERED: VITAMIN E 100 UNIT PO SCH (10:00)
[2020-12-31] MEDS ORDERED: LISINOPRIL PO SCH (10:00)
[2020-12-31 11:48] VITALS: BP 169/77
[2020-12-31 12:05] VITALS: O2SAT 98
--- NOTE | 2020-12-31 15:05 | PCM.SSS ---
History of Present Illness - Chief Complaint Chief Complaint: c/o weakness for 2-3 days History of Present Illness: is a 85 year old male.ith multiple medical problems is brought in the ER by EMS with chief complaint of generalized weakness. Patient report he was on the toilet, got weak all over and slowly brought him down and did hit his head. Denies any loss of consciousness. Patient report he was so weak that he could not get up for almost 30 minutes before he could call someone. Denies any dizziness or lightheadedness. Denies any chest pain palpitations or shortness of breath. No abdominal pain nausea or vomiting. Denies any diarrhea. Does not report any decreased oral intake. No fever or chills reported. Patient is feeling a little better but still overall weak. Timing/Duration: hour(s) (1), constant, sudden Severity: moderate Associated Symptoms: weakness, No nausea, No vomiting, No abdominal pain, No shortness of breath, No heartburn, No diaphoresis, No cough, No chills, No chest pain, No fever, No headaches, No loss of appetite, No malaise, No syncope, No seizure - Review of Systems Constitutional: Weakness, No Fever, No Chills Eyes: No Symptoms Ears, Nose, & Throat: No Symptoms Respiratory: No Cough, No Short Of Breath Cardiac: No Chest Pain, No Edema, No Syncope Abdominal/Gastrointestinal: No Abdominal Pain, No Nausea, No Vomiting, No Diarrhea Genitourinary Symptoms: No Dysuria Musculoskeletal: No Back Pain, No Neck Pain Skin: No Rash Neurological: No Dizziness, No Focal Weakness, No Sensory Changes Psychological: No Symptoms Endocrine: No Symptoms Hematologic/Lymphatic: No Symptoms Immunological/Allergic: No Symptoms Medications & Allergies Home Medications: Home Medication List Aspirin [Aspir 81] 81 mg PO DAILY 07/23/12 [History Confirmed 12/30/20] Isosorbide Mononitrate 30 mg [Imdur 30 MG] 30 mg PO DAILY 09/21/12 [History Confirmed 12/30/20] Potassium Chloride 10 Meq Tab* [Klor Con 10 MEQ] 10 meq PO BID 09/21/12 [History Confirmed 12/30/20] Pravastatin Sodium 10 mg [Pravachol 10 MG] 10 mg PO HS 09/21/12 [History Confirmed 12/30/20] Carvedilol 6.25 mg [Coreg 6.25 MG] 3.125 mg PO BID 02/04/15 [History Confirmed 12/30/20] Lisinopril/Hydrochlorothiazide [Lisinopril-Hctz 20-25 mg Tab] 20 - 25 mg PO DAILY 02/04/15 [History Confirmed 12/30/20] Tamsulosin HCl 0.4 mg [Flomax 0.4 MG] 0.4 mg PO DAILY 08/08/17 [History Confirmed 12/30/20] Acetaminophen 500 mg [Tylenol Extra Strength 500 mg] 500 - 1,000 mg PO Q6HPRN PRN 07/28/19 [History Confirmed 12/30/20] Folic Acid 1 mg PO DAILY 07/28/19 [History Confirmed 12/30/20] Oxybutynin Chloride [Oxybutynin Chloride ER] 5 mg PO DAILY 07/28/19 [History Confirmed 12/30/20] PARoxetine HCL [Paroxetine HCl] 10 mg PO DAILY 07/28/19 [History Confirmed 12/30/20] Clopidogrel Bisulfate 75 mg [PLAVIX 75 MG Tablet] 75 mg PO DAILY 04/21/20 [History Confirmed 12/30/20] Omeprazole 40 mg PO BID 04/22/20 [History Confirmed 12/30/20] Vitamin E 100 unit PO BID 08/01/20 [History Confirmed 12/30/20] Empagliflozin/Metformin HCl [Synjardy Xr 25-1,000 mg Tablet] 2 each PO BID 12/30/20 [History Confirmed 12/30/20] Allergies/Adverse Reactions: Allergies Allergy/AdvReac Type Severity Reaction Status Date / Time No Known Drug Allergies Allergy Verified 12/30/20 16:52 - Past Medical History Past Medical History: Yes Neurological History: TIA ENT History: No Pertinent History Cardiac History: Coronary Artery Disease, Hypertension Respiratory History: No Pertinent History Endocrine Medical History: Diabetes Type II Musculoskelatal History: Arthritis GI Medical History: GI Bleed History: No Pertinent History Pyscho-Social History: No Pertinent History Male Reproductive Disorders: No Pertinent History - Past Surgical History Past Surgical History: Yes Neuro Surgical History: No Pertinent History Cardiac History: Cardiac Catheterization, Cardiac Stent Respiratory Surgery: No Pertinent History GI Surgical History: Hernia Repair Genitourinary Surgical Hx: No Pertinent History Musculskeletal Surgical Hx: Orthopedic Surgery Male Surgical History: No Pertinent History Other Surgical History: Nasal surgery - Social History Smoking Status: Former smoker Exposure to second hand smoke: No Alcohol: None Drug Use: none Significant Family History: no pertinent family hx - Physical Exam Vital Signs: Vital Signs - 24 hr Temp Pulse Resp BP Pulse Ox 12/31/20 12:04 98 12/31/20 11:47 98 F 63 18 169/77 97 12/31/20 07:34 98.3 F 63 16 206/88 97 12/31/20 04:00 97.9 F 62 20 187/81 96 12/30/20 23:45 97.9 F 64 16 179/81 94 L 12/30/20 22:11 97.5 F 68 16 176/85 99 12/30/20 21:26 73 16 95 12/30/20 20:00 65 18 170/87 98 12/30/20 19:30 66 18 159/70 98 12/30/20 18:30 86 18 156/67 96 12/30/20 17:42 66 165/87 97 12/30/20 16:39 97.2 F 67 156/71 98 General Appearance: no apparent distress, alert Neurologic Exam: alert, oriented x 3, cooperative, normal mood/affect, nml cerebellar function, nml station & gait, sensation nml, No motor deficits Eye Exam: PERRL/EOMI, eyes nml inspection Ears, Nose, Throat Exam: normal ENT inspection, TMs normal, pharynx normal, moist mucous membranes Neck Exam: normal inspection, non-tender, supple, full range of motion Respiratory Exam: normal breath sounds, lungs clear, No respiratory distress Cardiovascular Exam: regular rate/rhythm, normal heart sounds, normal peripheral pulses Gastrointestinal/Abdomen Exam: soft, normal bowel sounds, No tenderness, No mass Back Exam: normal inspection, normal range of motion, No CVA tenderness, No vertebral tenderness Extremity Exam: normal inspection, normal range of motion, pelvis stable Skin Exam: normal color, warm, dry, No rash Lymphatic Exam: No adenopathy Results - Labs Lab/Micro Results: Lab Results-Last 24 Hours 12/30/20 12/30/20 12/30/20 Range/Units 16:56 17:00 17:00 WBC 6.8 (4.0-10.5) K/mm3 RBC 4.23 (4.1-5.6) M/mm3 Hgb 12.6 (12.5-18.0) gm/dl Hct 39.6 L (42-50) % MCV 93.6 (78-100) fl MCH 29.8 (26-32) pg MCHC 31.8 L (32-36) g/dl RDW 14.7 H (11.5-14.0) % Plt Count 210 (150-450) K/mm3 MPV 10.9 (7.5-11.0) fl Gran % 70.5 H (36.0-66.0) % Eos # (Auto) 0.18 (0-0.5) Absolute Lymphs (auto) 1.19 (1.0-4.6) Absolute Monos (auto) 0.63 (0.0-1.3) Lymphocytes % 17.4 L (24.0-44.0) % Monocytes % 9.2 (0.0-12.0) % Eosinophils % 2.6 (0.00-5.0) % Basophils % 0.3 (0.0-0.4) % Absolute Granulocytes 4.80 (1.4-6.9) Basophils # 0.02 (0-0.4) Sodium 141 (137-145) mmol/L Potassium 4.3 (3.5-5.1) mmol/L Chloride 109 H (98-107) mmol/L Carbon Dioxide 20 L (22-30) mmol/L Anion Gap 15.7 H (5-15) MEQ/L BUN 23 H (9-20) mg/dL Creatinine 1.37 H (0.66-1.25) mg/dL Estimated GFR 52.4 ML/MIN Glucose 139 H (74-106) mg/dL POC Glucometer (74 to 106) mg/dL Lactic Acid 2.4 H (0.4-2.0) Calcium 10.1 (8.4-10.2) mg/dL Magnesium (1.6-2.3) mg/dL Total Bilirubin 0.50 (0.2-1.3) mg/dL AST 24 (17-59) U/L ALT 17 (0-50) U/L Alkaline Phosphatase 76 (38-126) U/L Creatine Kinase (55-170) U/L Troponin I (0.000-0.034) ng/mL Serum Total Protein 6.4 (6.3-8.2) g/dL Albumin 3.8 (3.5-5.0) g/dL Urine Color (YELLOW) Urine Appearance (CLEAR) Urine pH (5-6) Ur Specific [place] (1.005-1.025) Urine Protein (Negative) Urine Ketones (NEGATIVE) Urine Blood (0-5) Wicho/ul Urine Nitrite (NEGATIVE) Urine Bilirubin (NEGATIVE) Urine Urobilinogen (0-1) mg/dL Ur Leukocyte Esterase (NEGATIVE) Urine WBC (Auto) (0-5) /HPF Urine RBC (Auto) (0-2) /HPF U Epithel Cells (Auto) (FEW) /HPF Urine Bacteria (Auto) (NEGATIVE) /HPF Urine Mucus (Auto) (NEGATIVE) /HPF Urine Culture Reflexed (NO) Urine Glucose (NEGATIVE) mg/dL SARS-CoV-2 (PCR) (NEGATIVE) 12/30/20 12/30/20 12/30/20 Range/Units 17:00 17:00 18:30 WBC (4.0-10.5) K/mm3 RBC (4.1-5.6) M/mm3 Hgb (12.5-18.0) gm/dl Hct (42-50) % MCV (78-100) fl MCH (26-32) pg MCHC (32-36) g/dl RDW (11.5-14.0) % Plt Count (150-450) K/mm3 MPV (7.5-11.0) fl Gran % (36.0-66.0) % Eos # (Auto) (0-0.5) Absolute Lymphs (auto) (1.0-4.6) Absolute Monos (auto) (0.0-1.3) Lymphocytes % (24.0-44.0) % Monocytes % (0.0-12.0) % Eosinophils % (0.00-5.0) % Basophils % (0.0-0.4) % Absolute Granulocytes (1.4-6.9) Basophils # (0-0.4) Sodium (137-145) mmol/L Potassium (3.5-5.1) mmol/L Chloride (98-107) mmol/L Carbon Dioxide (22-30) mmol/L Anion Gap (5-15) MEQ/L BUN (9-20) mg/dL Creatinine (0.66-1.25) mg/dL Estimated GFR ML/MIN Glucose (74-106) mg/dL POC Glucometer (74 to 106) mg/dL Lactic Acid (0.4-2.0) Calcium (8.4-10.2) mg/dL Magnesium 1.8 (1.6-2.3) mg/dL Total Bilirubin (0.2-1.3) mg/dL AST (17-59) U/L ALT (0-50) U/L Alkaline Phosphatase (38-126) U/L Creatine Kinase 93 (55-170) U/L Troponin I 0.013 (0.000-0.034) ng/mL Serum Total Protein (6.3-8.2) g/dL Albumin (3.5-5.0) g/dL Urine Color YELLOW (YELLOW) Urine Appearance CLEAR (CLEAR) Urine pH 5.0 (5-6) Ur Specific [place] 1.016 (1.005-1.025) Urine Protein NEGATIVE (Negative) Urine Ketones NEGATIVE (NEGATIVE) Urine Blood NEGATIVE (0-5) Wicho/ul Urine Nitrite NEGATIVE (NEGATIVE) Urine Bilirubin NEGATIVE (NEGATIVE) Urine Urobilinogen NEGATIVE (0-1) mg/dL Ur Leukocyte Esterase NEGATIVE (NEGATIVE) Urine WBC (Auto) NONE (0-5) /HPF Urine RBC (Auto) NONE (0-2) /HPF U Epithel Cells (Auto) NONE (FEW) /HPF Urine Bacteria (Auto) NONE (NEGATIVE) /HPF Urine Mucus (Auto) SLIGHT (NEGATIVE) /HPF Urine Culture Reflexed NO (NO) Urine Glucose NEGATIVE (NEGATIVE) mg/dL SARS-CoV-2 (PCR) (NEGATIVE) 12/30/20 12/30/20 12/30/20 Range/Units 18:58 19:06 21:01 WBC (4.0-10.5) K/mm3 RBC (4.1-5.6) M/mm3 Hgb (12.5-18.0) gm/dl Hct (42-50) % MCV (78-100) fl MCH (26-32) pg MCHC (32-36) g/dl RDW (11.5-14.0) % Plt Count (150-450) K/mm3 MPV (7.5-11.0) fl Gran % (36.0-66.0) % Eos # (Auto) (0-0.5) Absolute Lymphs (auto) (1.0-4.6) Absolute Monos (auto) (0.0-1.3) Lymphocytes % (24.0-44.0) % Monocytes % (0.0-12.0) % Eosinophils % (0.00-5.0) % Basophils % (0.0-0.4) % Absolute Granulocytes (1.4-6.9) Basophils # (0-0.4) Sodium (137-145) mmol/L Potassium (3.5-5.1) mmol/L Chloride (98-107) mmol/L Carbon Dioxide (22-30) mmol/L Anion Gap (5-15) MEQ/L BUN (9-20) mg/dL Creatinine (0.66-1.25) mg/dL Estimated GFR ML/MIN Glucose (74-106) mg/dL POC Glucometer 106 (74 to 106) mg/dL Lactic Acid (0.4-2.0) Calcium (8.4-10.2) mg/dL Magnesium (1.6-2.3) mg/dL Total Bilirubin (0.2-1.3) mg/dL AST (17-59) U/L ALT (0-50) U/L Alkaline Phosphatase (38-126) U/L Creatine Kinase (55-170) U/L Troponin I 0.016 (0.000-0.034) ng/mL Serum Total Protein (6.3-8.2) g/dL Albumin (3.5-5.0) g/dL Urine Color (YELLOW) Urine Appearance (CLEAR) Urine pH (5-6) Ur Specific [place] (1.005-1.025) Urine Protein (Negative) Urine Ketones (NEGATIVE) Urine Blood (0-5) Wicho/ul Urine Nitrite (NEGATIVE) Urine Bilirubin (NEGATIVE) Urine Urobilinogen (0-1) mg/dL Ur Leukocyte Esterase (NEGATIVE) Urine WBC (Auto) (0-5) /HPF Urine RBC (Auto) (0-2) /HPF U Epithel Cells (Auto) (FEW) /HPF Urine Bacteria (Auto) (NEGATIVE) /HPF Urine Mucus (Auto) (NEGATIVE) /HPF Urine Culture Reflexed (NO) Urine Glucose (NEGATIVE) mg/dL SARS-CoV-2 (PCR) NEGATIVE (NEGATIVE) 12/30/20 12/31/20 12/31/20 Range/Units 22:08 01:42 04:45 WBC (4.0-10.5) K/mm3 RBC (4.1-5.6) M/mm3 Hgb (12.5-18.0) gm/dl Hct (42-50) % MCV (78-100) fl MCH (26-32) pg MCHC (32-36) g/dl RDW (11.5-14.0) % Plt Count (150-450) K/mm3 MPV (7.5-11.0) fl Gran % (36.0-66.0) % Eos # (Auto) (0-0.5) Absolute Lymphs (auto) (1.0-4.6) Absolute Monos (auto) (0.0-1.3) Lymphocytes % (24.0-44.0) % Monocytes % (0.0-12.0) % Eosinophils % (0.00-5.0) % Basophils % (0.0-0.4) % Absolute Granulocytes (1.4-6.9) Basophils # (0-0.4) Sodium (137-145) mmol/L Potassium (3.5-5.1) mmol/L Chloride (98-107) mmol/L Carbon Dioxide (22-30) mmol/L Anion Gap (5-15) MEQ/L BUN (9-20) mg/dL Creatinine (0.66-1.25) mg/dL Estimated GFR ML/MIN Glucose (74-106) mg/dL POC Glucometer (74 to 106) mg/dL Lactic Acid (0.4-2.0) Calcium (8.4-10.2) mg/dL Magnesium (1.6-2.3) mg/dL Total Bilirubin (0.2-1.3) mg/dL AST (17-59) U/L ALT (0-50) U/L Alkaline Phosphatase (38-126) U/L Creatine Kinase (55-170) U/L Troponin I 0.019 0.023 0.025 (0.000-0.034) ng/mL Serum Total Protein (6.3-8.2) g/dL Albumin (3.5-5.0) g/dL Urine Color (YELLOW) Urine Appearance (CLEAR) Urine pH (5-6) Ur Specific [place] (1.005-1.025) Urine Protein (Negative) Urine Ketones (NEGATIVE) Urine Blood (0-5) Wicho/ul Urine Nitrite (NEGATIVE) Urine Bilirubin (NEGATIVE) Urine Urobilinogen (0-1) mg/dL Ur Leukocyte Esterase (NEGATIVE) Urine WBC (Auto) (0-5) /HPF Urine RBC (Auto) (0-2) /HPF U Epithel Cells (Auto) (FEW) /HPF Urine Bacteria (Auto) (NEGATIVE) /HPF Urine Mucus (Auto) (NEGATIVE) /HPF Urine Culture Reflexed (NO) Urine Glucose (NEGATIVE) mg/dL SARS-CoV-2 (PCR) (NEGATIVE) 12/31/20 12/31/20 12/31/20 Range/Units 04:45 05:00 07:22 WBC 5.2 (4.0-10.5) K/mm3 RBC 4.04 L (4.1-5.6) M/mm3 Hgb 12.1 L (12.5-18.0) gm/dl Hct 38.1 L (42-50) % MCV 94.3 (78-100) fl MCH 30.0 (26-32) pg MCHC 31.8 L (32-36) g/dl RDW 14.9 H (11.5-14.0) % Plt Count 202 (150-450) K/mm3 MPV 10.3 (7.5-11.0) fl Gran % 53.6 (36.0-66.0) % Eos # (Auto) 0.22 (0-0.5) Absolute Lymphs (auto) 1.54 (1.0-4.6) Absolute Monos (auto) 0.66 (0.0-1.3) Lymphocytes % 29.4 (24.0-44.0) % Monocytes % 12.6 H (0.0-12.0) % Eosinophils % 4.2 (0.00-5.0) % Basophils % 0.2 (0.0-0.4) % Absolute Granulocytes 2.80 (1.4-6.9) Basophils # 0.01 (0-0.4) Sodium 137 (137-145) mmol/L Potassium 3.8 (3.5-5.1) mmol/L Chloride 107 (98-107) mmol/L Carbon Dioxide 24 (22-30) mmol/L Anion Gap 9.6 (5-15) MEQ/L BUN 19 (9-20) mg/dL Creatinine 1.14 (0.66-1.25) mg/dL Estimated GFR > 60.0 ML/MIN Glucose 142 H (74-106) mg/dL POC Glucometer 147 H (74 to 106) mg/dL Lactic Acid (0.4-2.0) Calcium 9.6 (8.4-10.2) mg/dL Magnesium (1.6-2.3) mg/dL Total Bilirubin 0.20 (0.2-1.3) mg/dL AST 20 (17-59) U/L ALT 15 (0-50) U/L Alkaline Phosphatase 78 (38-126) U/L Creatine Kinase (55-170) U/L Troponin I (0.000-0.034) ng/mL Serum Total Protein 5.6 L (6.3-8.2) g/dL Albumin 3.2 L (3.5-5.0) g/dL Urine Color (YELLOW) Urine Appearance (CLEAR) Urine pH (5-6) Ur Specific [place] (1.005-1.025) Urine Protein (Negative) Urine Ketones (NEGATIVE) Urine Blood (0-5) Wicho/ul Urine Nitrite (NEGATIVE) Urine Bilirubin (NEGATIVE) Urine Urobilinogen (0-1) mg/dL Ur Leukocyte Esterase (NEGATIVE) Urine WBC (Auto) (0-5) /HPF Urine RBC (Auto) (0-2) /HPF U Epithel Cells (Auto) (FEW) /HPF Urine Bacteria (Auto) (NEGATIVE) /HPF Urine Mucus (Auto) (NEGATIVE) /HPF Urine Culture Reflexed (NO) Urine Glucose (NEGATIVE) mg/dL SARS-CoV-2 (PCR) (NEGATIVE) 12/31/20 Range/Units 11:17 WBC (4.0-10.5) K/mm3 RBC (4.1-5.6) M/mm3 Hgb (12.5-18.0) gm/dl Hct (42-50) % MCV (78-100) fl MCH (26-32) pg MCHC (32-36) g/dl RDW (11.5-14.0) % Plt Count (150-450) K/mm3 MPV (7.5-11.0) fl Gran % (36.0-66.0) % Eos # (Auto) (0-0.5) Absolute Lymphs (auto) (1.0-4.6) Absolute Monos (auto) (0.0-1.3) Lymphocytes % (24.0-44.0) % Monocytes % (0.0-12.0) % Eosinophils % (0.00-5.0) % Basophils % (0.0-0.4) % Absolute Granulocytes (1.4-6.9) Basophils # (0-0.4) Sodium (137-145) mmol/L Potassium (3.5-5.1) mmol/L Chloride (98-107) mmol/L Carbon Dioxide (22-30) mmol/L Anion Gap (5-15) MEQ/L BUN (9-20) mg/dL Creatinine (0.66-1.25) mg/dL Estimated GFR ML/MIN Glucose (74-106) mg/dL POC Glucometer 247 H (74 to 106) mg/dL Lactic Acid (0.4-2.0) Calcium (8.4-10.2) mg/dL Magnesium (1.6-2.3) mg/dL Total Bilirubin (0.2-1.3) mg/dL AST (17-59) U/L ALT (0-50) U/L Alkaline Phosphatase (38-126) U/L Creatine Kinase (55-170) U/L Troponin I (0.000-0.034) ng/mL Serum Total Protein (6.3-8.2) g/dL Albumin (3.5-5.0) g/dL Urine Color (YELLOW) Urine Appearance (CLEAR) Urine pH (5-6) Ur Specific [place] (1.005-1.025) Urine Protein (Negative) Urine Ketones (NEGATIVE) Urine Blood (0-5) Wicho/ul Urine Nitrite (NEGATIVE) Urine Bilirubin (NEGATIVE) Urine Urobilinogen (0-1) mg/dL Ur Leukocyte Esterase (NEGATIVE) Urine WBC (Auto) (0-5) /HPF Urine RBC (Auto) (0-2) /HPF U Epithel Cells (Auto) (FEW) /HPF Urine Bacteria (Auto) (NEGATIVE) /HPF Urine Mucus (Auto) (NEGATIVE) /HPF Urine Culture Reflexed (NO) Urine Glucose (NEGATIVE) mg/dL SARS-CoV-2 (PCR) (NEGATIVE) Accuchecks Date 12/31/20 Date 12/31/20 Date 12/30/20 Time 11:17 Time 07:22 Time 22:00 - Radiology Impressions Radiology Exams & Impressions: Radiology Procedures Category Date Time Status CERVICAL SPINE WO CONTRAST [CT] Stat Exams 12/30/20 16:42 Completed CHEST 1 VIEW (PORTABLE) Stat Exams 12/30/20 16:43 Completed HEAD WITHOUT CONTRAST [CT] Stat Exams 12/30/20 16:43 Completed Assessment/Plan (1) General weakness Current Visit: Yes Status: Acute Code(s): R53.1 - WEAKNESS (2) Fall Current Visit: Yes Status: Resolved Qualifiers: Encounter type: initial encounter Qualified Code(s): W19.XXXA - Unspecified fall, initial encounter Code(s): W19.XXXA - UNSPECIFIED FALL, INITIAL ENCOUNTER (3) Hypertension Current Visit: No Status: Chronic Qualifiers: Hypertension type: essential hypertension Qualified Code(s): I10 - Essential (primary) hypertension Code(s): I10 - ESSENTIAL (PRIMARY) HYPERTENSION (4) Type 2 diabetes mellitus Current Visit: Yes Status: Chronic Qualifiers: Diabetes mellitus terminal operator insulin use: without prison use Diabetes mellitus complication status: with kidney complications Diabetes mellitus complication detail: with chronic kidney disease Chronic kidney disease stage: stage 3 (moderate) Chronic kidney disease stage 3 subtype: stage 3b (GFR 30- 44) Qualified Code(s): E11.22 - Type 2 diabetes mellitus with diabetic chronic kidney disease; N18.32 - Chronic kidney disease, stage 3b Hospital Summary - Hospital Course Hospital Course: Chief Complaint Diagnosis GEN WEAKNESS Allergies Allergy/AdvReac Type Severity Reaction Status Date / Time No Known Drug Allergies Allergy Verified 12/30/20 16:52 Vital Signs (Last 24 hours) Temp Pulse Resp BP Pulse Ox 12/31/20 12:04 98 12/31/20 11:47 98 F 63 18 169/77 97 12/31/20 07:34 98.3 F 63 16 206/88 97 12/31/20 04:00 97.9 F 62 20 187/81 96 12/30/20 23:45 97.9 F 64 16 179/81 94 L 12/30/20 22:11 97.5 F 68 16 176/85 99 12/30/20 21:26 73 16 95 12/30/20 20:00 65 18 170/87 98 12/30/20 19:30 66 18 159/70 98 12/30/20 18:30 86 18 156/67 96 12/30/20 17:42 66 165/87 97 12/30/20 16:39 97.2 F 67 156/71 98 Home Medications Medication Instructions Recorded Confirmed Last Taken Type Empagliflozin/Metformin HCl 2 each PO BID 12/30/20 12/30/20 12/30/20 History [Synjardy Xr 25-1,000 mg Tablet] Current Medications Generic Name Dose Route Start Last Admin Trade Name Freq PRN Reason Stop Dose Admin Acetaminophen 0 mg 12/31/20 07:33 Tylenol Extra Strength 500 Mg PO 01/30/21 07:32 Q6HPRN PRN PAIN AND/OR FEVER Aspirin 81 mg 12/31/20 10:00 12/31/20 08:38 Ecotrin 81 Mg PO 01/30/21 09:59 81 mg DAILY ART Administration Carvedilol 3.125 mg 12/30/20 23:30 12/31/20 08:39 Coreg 3.125 Mg PO 01/29/21 23:29 3.125 mg BID ART Administration Clopidogrel Bisulfate 75 mg 12/31/20 10:00 12/31/20 08:38 Plavix 75 Mg Tablet PO 01/30/21 09:59 75 mg DAILY ART Administration Famotidine 20 mg 12/30/20 22:00 12/31/20 08:41 Pepcid 20 Mg Vial IV 01/29/21 21:59 20 mg Q12HT ART Administration Folic Acid 1 mg 12/31/20 10:00 12/31/20 08:38 Folate 1 Mg PO 01/30/21 09:59 1 mg DAILY ART Administration Hydrochlorothiazide 12.5 mg 12/31/20 10:00 12/31/20 08:39 Hydrodiuril 25 Mg PO 01/30/21 09:59 12.5 mg DAILY ART Administration Sodium Chloride 1,000 mls @ 100 mls/hr 12/30/20 20:34 12/31/20 05:07 Sodium Chloride 0.9% 1000 Ml IV 01/29/21 20:33 100 mls/hr .Q10H ART Administration Insulin Human Lispro 0 unit 12/30/20 20:34 Humalog SQ 01/29/21 20:33 UD PRN HYPERGLYCEMIA Isosorbide Mononitrate 30 mg 12/31/20 10:00 12/31/20 08:38 Imdur 30 Mg PO 01/30/21 09:59 30 mg DAILY ART Administration Lisinopril 10 mg 12/31/20 10:00 12/31/20 08:38 Zestril 10 Mg PO 01/30/21 09:59 10 mg DAILY ART Administration Miscellaneous Information 1 each 12/31/20 07:45 Medication Intervention PO 01/30/21 07:44 .RN TO CHECK ON ART Multivitamins/Minerals 1 tab 12/31/20 10:00 12/31/20 08:40 Ocuvite Tablet PO 01/30/21 09:59 1 tab BID ART Administration Ondansetron HCl 4 mg 12/30/20 20:34 Zofran 4 Mg/2 Ml Vial IV 01/29/21 20:33 Q6H PRN PRN NAUSEA/VOMITING Oxybutynin Chloride 5 mg 12/31/20 10:00 12/31/20 08:38 Ditropan Xl 5 Mg PO 01/30/21 09:59 5 mg DAILY ART Administration Pantoprazole Sodium 40 mg 12/31/20 10:00 12/31/20 08:39 Protonix 40mg Tablet PO 01/29/21 23:29 40 mg BID ART Administration Potassium Chloride 10 meq 12/30/20 23:30 12/31/20 08:38 Klor Con 10 Meq PO 01/29/21 23:29 10 meq BID ART Administration Simvastatin 10 mg 12/30/20 23:30 12/30/20 23:43 Zocor 10mg PO 01/29/21 23:29 10 mg HS ART Administration Tamsulosin HCl 0.4 mg 12/31/20 10:00 12/31/20 08:39 Flomax 0.4 Mg PO 01/30/21 09:59 0.4 mg DAILY ART Administration Discontinued Medications Generic Name Dose Route Start Last Admin Trade Name Daniella PRN Reason Stop Dose Admin Acetaminophen 650 mg 12/30/20 20:34 Tylenol 325 Mg PO 01/29/21 20:33 Q4H PRN PRN PAIN AND/OR FEVER Albuterol/Ipratropium 3 ml 12/30/20 20:34 Duoneb 0.5-3 Mg/3 Ml Neb IH 01/29/21 20:33 Q4HPRN PRN SHORTNESS OF BREATH/WHEEZING Sodium Chloride 1,000 mls @ 100 mls/hr 12/30/20 18:45 12/30/20 18:53 Sodium Chloride 0.9% 1000 Ml IV 01/29/21 18:44 100 mls/hr .Q10H ART Administration Sodium Chloride Confirm 12/30/20 18:50 Sodium Chloride 0.9% 1000 Ml Administered 12/30/20 18:51 Dose 1,000 mls @ ud .ROUTE .STK-MED ONE Pantoprazole Sodium 80 mg 12/30/20 23:30 12/30/20 23:42 Protonix 40mg Tablet PO 01/29/21 23:29 80 mg BID ART Administration Intake & Output (Last 24 hours) 12/29/20 12/30/20 12/31/20 01/01/21 11:59 11:59 11:59 11:59 Intake Total 1153 240 Output Total 2450 Balance -1297 240 Weight 79.2 kg Laboratory Results (Last 24 hours) 12/31/20 12/31/20 12/31/20 11:17 07:22 05:00 WBC 5.2 RBC 4.04 L Hgb 12.1 L Hct 38.1 L MCV 94.3 MCH 30.0 MCHC 31.8 L RDW 14.9 H Plt Count 202 MPV 10.3 Gran % 53.6 Eos # (Auto) 0.22 Absolute Lymphs (auto) 1.54 Absolute Monos (auto) 0.66 Lymphocytes % 29.4 Monocytes % 12.6 H Eosinophils % 4.2 Basophils % 0.2 Absolute Granulocytes 2.80 Basophils # 0.01 Sodium Potassium Chloride Carbon Dioxide Anion Gap BUN Creatinine Estimated GFR Glucose POC Glucometer 247 H 147 H Lactic Acid Calcium Magnesium Total Bilirubin AST ALT Alkaline Phosphatase Creatine Kinase Troponin I Serum Total Protein Albumin Urine Color Urine Appearance Urine pH Ur Specific [place] Urine Protein Urine Ketones Urine Blood Urine Nitrite Urine Bilirubin Urine Urobilinogen Ur Leukocyte Esterase Urine WBC (Auto) Urine RBC (Auto) U Epithel Cells (Auto) Urine Bacteria (Auto) Urine Mucus (Auto) Urine Culture Reflexed Urine Glucose SARS-CoV-2 (PCR) 12/31/20 12/31/20 12/31/20 04:45 04:45 01:42 WBC RBC Hgb Hct MCV MCH MCHC RDW Plt Count MPV Gran % Eos # (Auto) Absolute Lymphs (auto) Absolute Monos (auto) Lymphocytes % Monocytes % Eosinophils % Basophils % Absolute Granulocytes Basophils # Sodium 137 Potassium 3.8 Chloride 107 Carbon Dioxide 24 Anion Gap 9.6 BUN 19 Creatinine 1.14 Estimated GFR > 60.0 Glucose 142 H POC Glucometer Lactic Acid Calcium 9.6 Magnesium Total Bilirubin 0.20 AST 20 ALT 15 Alkaline Phosphatase 78 Creatine Kinase Troponin I 0.025 0.023 Serum Total Protein 5.6 L Albumin 3.2 L Urine Color Urine Appearance Urine pH Ur Specific [place] Urine Protein Urine Ketones Urine Blood Urine Nitrite Urine Bilirubin Urine Urobilinogen Ur Leukocyte Esterase Urine WBC (Auto) Urine RBC (Auto) U Epithel Cells (Auto) Urine Bacteria (Auto) Urine Mucus (Auto) Urine Culture Reflexed Urine Glucose SARS-CoV-2 (PCR) 12/30/20 12/30/20 12/30/20 22:08 21:01 19:06 WBC RBC Hgb Hct MCV MCH MCHC RDW Plt Count MPV Gran % Eos # (Auto) Absolute Lymphs (auto) Absolute Monos (auto) Lymphocytes % Monocytes % Eosinophils % Basophils % Absolute Granulocytes Basophils # Sodium Potassium Chloride Carbon Dioxide Anion Gap BUN Creatinine Estimated GFR Glucose POC Glucometer 106 Lactic Acid Calcium Magnesium Total Bilirubin AST ALT Alkaline Phosphatase Creatine Kinase Troponin I 0.019 Serum Total Protein Albumin Urine Color Urine Appearance Urine pH Ur Specific [place] Urine Protein Urine Ketones Urine Blood Urine Nitrite Urine Bilirubin Urine Urobilinogen Ur Leukocyte Esterase Urine WBC (Auto) Urine RBC (Auto) U Epithel Cells (Auto) Urine Bacteria (Auto) Urine Mucus (Auto) Urine Culture Reflexed Urine Glucose SARS-CoV-2 (PCR) NEGATIVE 12/30/20 12/30/20 12/30/20 18:58 18:30 17:00 WBC RBC Hgb Hct MCV MCH MCHC RDW Plt Count MPV Gran % Eos # (Auto) Absolute Lymphs (auto) Absolute Monos (auto) Lymphocytes % Monocytes % Eosinophils % Basophils % Absolute Granulocytes Basophils # Sodium Potassium Chloride Carbon Dioxide Anion Gap BUN Creatinine Estimated GFR Glucose POC Glucometer Lactic Acid Calcium Magnesium Total Bilirubin AST ALT Alkaline Phosphatase Creatine Kinase Troponin I 0.016 0.013 Serum Total Protein Albumin Urine Color YELLOW Urine Appearance CLEAR Urine pH 5.0 Ur Specific [place] 1.016 Urine Protein NEGATIVE Urine Ketones NEGATIVE Urine Blood NEGATIVE Urine Nitrite NEGATIVE Urine Bilirubin NEGATIVE Urine Urobilinogen NEGATIVE Ur Leukocyte Esterase NEGATIVE Urine WBC (Auto) NONE Urine RBC (Auto) NONE U Epithel Cells (Auto) NONE Urine Bacteria (Auto) NONE Urine Mucus (Auto) SLIGHT Urine Culture Reflexed NO Urine Glucose NEGATIVE SARS-CoV-2 (PCR) 12/30/20 12/30/20 12/30/20 17:00 17:00 17:00 WBC 6.8 RBC 4.23 Hgb 12.6 Hct 39.6 L MCV 93.6 MCH 29.8 MCHC 31.8 L RDW 14.7 H Plt Count 210 MPV 10.9 Gran % 70.5 H Eos # (Auto) 0.18 Absolute Lymphs (auto) 1.19 Absolute Monos (auto) 0.63 Lymphocytes % 17.4 L Monocytes % 9.2 Eosinophils % 2.6 Basophils % 0.3 Absolute Granulocytes 4.80 Basophils # 0.02 Sodium 141 Potassium 4.3 Chloride 109 H Carbon Dioxide 20 L Anion Gap 15.7 H BUN 23 H Creatinine 1.37 H Estimated GFR 52.4 Glucose 139 H POC Glucometer Lactic Acid Calcium 10.1 Magnesium 1.8 Total Bilirubin 0.50 AST 24 ALT 17 Alkaline Phosphatase 76 Creatine Kinase 93 Troponin I Serum Total Protein 6.4 Albumin 3.8 Urine Color Urine Appearance Urine pH Ur Specific [place] Urine Protein Urine Ketones Urine Blood Urine Nitrite Urine Bilirubin Urine Urobilinogen Ur Leukocyte Esterase Urine WBC (Auto) Urine RBC (Auto) U Epithel Cells (Auto) Urine Bacteria (Auto) Urine Mucus (Auto) Urine Culture Reflexed Urine Glucose SARS-CoV-2 (PCR) 12/30/20 16:56 WBC RBC Hgb Hct MCV MCH MCHC RDW Plt Count MPV Gran % Eos # (Auto) Absolute Lymphs (auto) Absolute Monos (auto) Lymphocytes % Monocytes % Eosinophils % Basophils % Absolute Granulocytes Basophils # Sodium Potassium Chloride Carbon Dioxide Anion Gap BUN Creatinine Estimated GFR Glucose POC Glucometer Lactic Acid 2.4 H Calcium Magnesium Total Bilirubin AST ALT Alkaline Phosphatase Creatine Kinase Troponin I Serum Total Protein Albumin Urine Color Urine Appearance Urine pH Ur Specific [place] Urine Protein Urine Ketones Urine Blood Urine Nitrite Urine Bilirubin Urine Urobilinogen Ur Leukocyte Esterase Urine WBC (Auto) Urine RBC (Auto) U Epithel Cells (Auto) Urine Bacteria (Auto) Urine Mucus (Auto) Urine Culture Reflexed Urine Glucose SARS-CoV-2 (PCR) Orders (Last 24 hours) Category Date Time Status Bedrest ROUTINE Activity 12/30/20 20:34 Active Up With Assistance ROUTINE Activity 12/30/20 20:34 Active Code Status Order ROUTINE Care 12/30/20 20:34 Active Code Status Order ROUTINE Care 12/30/20 20:34 Completed EKG-ER Only STAT Care 12/30/20 16:43 Completed Fall Protocol ROUTINE Care 12/30/20 20:34 Completed IV Care Q6H Care 12/30/20 20:34 Completed IV Care Q6H Care 12/30/20 20:34 Completed IV Insertion STAT Care 12/30/20 16:43 Completed POCT Glucose Check ACHS Care 12/30/20 20:[address] in Observation ROUTINE Care 12/30/20 20:34 Active Ashley Lepe ROUTINE Care 12/30/20 20:34 Active Health Record Technician/Discharge Plan ROUTINE Cons 12/30/20 22:33 Active Nutritional Admission Screen ONCE Diet 12/30/20 22:33 Completed Discharge Planning,Consult Routine Discharge 12/31/20 Active Discharge Routine Discharge 12/31/20 Ordered Discharge/Telephone Order Routine Discharge 12/31/20 Active CERVICAL SPINE WO CONTRAST [CT] Stat Exams 12/30/20 16:42 Completed CHEST 1 VIEW (PORTABLE) Stat Exams 12/30/20 16:43 Completed HEAD WITHOUT CONTRAST [CT] Stat Exams 12/30/20 16:43 Completed CBC W DIFF AM.LAB Lab 12/31/20 05:00 Completed CBC W DIFF Stat Lab 12/30/20 17:00 Completed CK (IN-HOUSE) [CK-Creatinine Phosphokinase] Stat Lab 12/30/20 17:00 Completed CMP AM.LAB Lab 12/31/20 04:45 Completed CMP Stat Lab 12/30/20 17:00 Completed Lactic Acid Stat Lab 12/30/20 16:56 Completed MG [MAGNESIUM] Stat Lab 12/30/20 17:00 Completed POCT GLUCOSE Stat Lab 12/30/20 21:01 Completed POCT GLUCOSE Stat Lab 12/31/20 07:22 Completed POCT GLUCOSE Stat Lab 12/31/20 11:17 Completed SARS-CoV-2 Xpert Express Routine Lab 12/30/20 19:06 Completed TROPONIN Q3H Lab 12/30/20 17:00 Completed TROPONIN Q3H Lab 12/30/20 18:58 Completed TROPONIN Q3H Lab 12/30/20 22:08 Completed TROPONIN Q3H Lab 12/31/20 01:42 Completed TROPONIN Q3H Lab 12/31/20 04:45 Completed UA W/RFX UR CULTURE Stat Lab 12/30/20 18:30 Completed Acetaminophen 325 mg [Tylenol 325 mg] Med 12/30/20 20:34 Discontinued 650 mg PO Q4H PRN PRN Acetaminophen 500 mg [Tylenol Extra Strength 500 mg* Med 12/31/20 07:33 Active ] See Dose Instructions PO Q6HPRN PRN Albuterol/Ipratropium 3ml Neb* [DUONEB 0.5-3 MG/3 ml Med 12/30/20 20:34 Discontinued Neb] 3 ml IH Q4HPRN PRN Aspirin EC 81 mg [Ecotrin 81 mg] Med 12/31/20 10:00 Active 81 mg PO DAILY Beta-Carotene(A) W-C & E/Min [Ocuvite Tablet] Med 12/31/20 10:00 Active 1 tab PO BID Carvedilol 3.125 mg [Coreg 3.125 MG] Med 12/30/20 23:30 Active 3.125 mg PO BID Clopidogrel Bisulfate 75 mg [PLAVIX 75 MG Tablet] Med 12/31/20 10:00 Active 75 mg PO DAILY Famotidine 20 mg Vial [Pepcid 20 MG VIAL] Med 12/30/20 22:00 Active 20 mg IV Q12HT Folic Acid 1 mg [Folate 1 mg] Med 12/31/20 10:00 Active 1 mg PO DAILY Hydrochlorothiazide 25 mg [hydroDIURIL 25 MG] Med 12/31/20 10:00 Active 12.5 mg PO DAILY Insulin Lispro [Humalog] Med 12/30/20 20:34 Active See Dose Instructions SQ UD PRN Isosorbide Mononitrate 30 mg [Imdur 30 MG] Med 12/31/20 10:00 Active 30 mg PO DAILY Lisinopril 10 mg [Zestril 10 MG] Med 12/31/20 10:00 Active 10 mg PO DAILY Medication Intervention Med 12/31/20 07:45 Active 1 each PO .RN TO CHECK ON NaCl 0.9% 1000 ml [Sodium Chloride 0.9% 1000 ML] 1,000 Med 12/30/20 18:50 Discontinued ml .ROUTE UD NaCl 0.9% 1000 ml [Sodium Chloride 0.9% 1000 ML] 1000 Med 12/30/20 18:45 Discontinued ml IV 100 mls/hr NaCl 0.9% 1000 ml [Sodium Chloride 0.9% 1000 ML] 000 Med 12/30/20 20:34 Active ml IV 100 mls/hr Ondansetron HCl 4 mg/2 ml [Zofran 4 MG/2 ML VIAL] Med 12/30/20 20:34 Active 4 mg IV Q6H PRN PRN Oxybutynin Chloride Xl 5 mg [Ditropan XL 5 MG] Med 12/31/20 10:00 Active 5 mg PO DAILY PANTOPRAZOLE 40 mg Tablet [Protonix 40MG Tablet] Med 12/31/20 10:00 Active 40 mg PO BID PANTOPRAZOLE 40 mg Tablet [Protonix 40MG Tablet] Med 12/30/20 23:30 Discontinued 80 mg PO BID Potassium Chloride 10 Meq Tab* [Klor Con 10 MEQ] Med 12/30/20 23:30 Active 10 meq PO BID Simvastatin 10 mg [Zocor 10MG] Med 12/30/20 23:30 Active 10 mg PO HS Tamsulosin HCl 0.4 mg [Flomax 0.4 MG] Med 12/31/20 10:00 Active 0.4 mg PO DAILY PT Eval & Treat ( Order) ONCE PT 12/31/20 08:21 Active Pulse Oximetry .spot check RT 12/30/20 21:27 Completed Respiratory Therapy Assessment DAILY RT 12/30/20 21:26 Completed Patient Care Notes (Last 24 hours) 12/31/20 14:54 Nursing Note by Radha Pugh PATIENT SISTER TO TAKE PATIENT HOME ON DISCHARGE. VERBALIZES UNDERSTANDING OF DISCHARGE TEACHING , WILL FOLLOW UP WITH ROSARIO Initialized on 12/31/20 14:54 - END OF NOTE 12/31/20 14:02 Nursing Note by Radha Pugh patient refuses insulin , noon blood sugar elevated (247) but not covered for this reason Initialized on 12/31/20 14:02 - END OF NOTE 12/31/20 12:13 Case Management Note by Ekta Tenorio [facility] HAS ACCEPTED PATIENT AND IS AWARE HE WILL BE GOING HOME TODAY. THEY WILL ADMIT HIM ON SUNDAY. THEY WILL NEED FAXED THE DC INSTRUCTIONS, DC MED LIST AND DC SUMMARY (IF AVAILABLE) TO [phone]. THEY WERE ALSO NOTIFIED PHYSICIAN WOULD LIKE PATIENT TO PROGRESS TO OTPT PT- THEY VERIFIED UNDERSTANDING Initialized on 12/31/20 12:13 - END OF NOTE 12/31/20 11:09 Case Management Note by Ekta Tenorio REFERRAL SENT TO [facility] FOR PATIENT'S REQUEST FOR HOMEMAKER Initialized on 12/31/20 11:09 - END OF NOTE 12/31/20 11:01 Case Management Note by Ekta Tenorio PATIENT REPORTS HE HAS USED [facility] IN THE PAST AND WOULD LIKE TO HAVE THEM AGAIN. REFERRAL FAXED AT THIS TIME Initialized on 12/31/20 11:01 - END OF NOTE - Vitals & Intake/Output Vital Signs: Vital Signs Temperature 98 F 12/31/20 11:47 Pulse Rate 63 12/31/20 11:47 Respiratory Rate 18 12/31/20 11:47 Blood Pressure 169/77 12/31/20 11:47 O2 Sat by Pulse Oximetry 98 12/31/20 12:04 Intake & Output: Intake & Output 12/29/20 12/30/20 12/31/20 01/01/21 11:59 11:59 11:59 11:59 Intake Total 1153 240 Output Total 2450 Balance -1297 240 Weight 79.2 kg - Lab Result Diagrams: 12/31/20 05:00 12/31/20 04:45 Lab Results-Last 24 Hrs: Lab Results-Last 24 Hours 12/30/20 12/30/20 12/30/20 Range/Units 16:56 17:00 17:00 WBC 6.8 (4.0-10.5) K/mm3 RBC 4.23 (4.1-5.6) M/mm3 Hgb 12.6 (12.5-18.0) gm/dl Hct 39.6 L (42-50) % MCV 93.6 (78-100) fl MCH 29.8 (26-32) pg MCHC 31.8 L (32-36) g/dl RDW 14.7 H (11.5-14.0) % Plt Count 210 (150-450) K/mm3 MPV 10.9 (7.5-11.0) fl Gran % 70.5 H (36.0-66.0) % Eos # (Auto) 0.18 (0-0.5) Absolute Lymphs (auto) 1.19 (1.0-4.6) Absolute Monos (auto) 0.63 (0.0-1.3) Lymphocytes % 17.4 L (24.0-44.0) % Monocytes % 9.2 (0.0-12.0) % Eosinophils % 2.6 (0.00-5.0) % Basophils % 0.3 (0.0-0.4) % Absolute Granulocytes 4.80 (1.4-6.9) Basophils # 0.02 (0-0.4) Sodium 141 (137-145) mmol/L Potassium 4.3 (3.5-5.1) mmol/L Chloride 109 H (98-107) mmol/L Carbon Dioxide 20 L (22-30) mmol/L Anion Gap 15.7 H (5-15) MEQ/L BUN 23 H (9-20) mg/dL Creatinine 1.37 H (0.66-1.25) mg/dL Estimated GFR 52.4 ML/MIN Glucose 139 H (74-106) mg/dL POC Glucometer (74 to 106) mg/dL Lactic Acid 2.4 H (0.4-2.0) Calcium 10.1 (8.4-10.2) mg/dL Magnesium (1.6-2.3) mg/dL Total Bilirubin 0.50 (0.2-1.3) mg/dL AST 24 (17-59) U/L ALT 17 (0-50) U/L Alkaline Phosphatase 76 (38-126) U/L Creatine Kinase (55-170) U/L Troponin I (0.000-0.034) ng/mL Serum Total Protein 6.4 (6.3-8.2) g/dL Albumin 3.8 (3.5-5.0) g/dL Urine Color (YELLOW) Urine Appearance (CLEAR) Urine pH (5-6) Ur Specific [place] (1.005-1.025) Urine Protein (Negative) Urine Ketones (NEGATIVE) Urine Blood (0-5) Wicho/ul Urine Nitrite (NEGATIVE) Urine Bilirubin (NEGATIVE) Urine Urobilinogen (0-1) mg/dL Ur Leukocyte Esterase (NEGATIVE) Urine WBC (Auto) (0-5) /HPF Urine RBC (Auto) (0-2) /HPF U Epithel Cells (Auto) (FEW) /HPF Urine Bacteria (Auto) (NEGATIVE) /HPF Urine Mucus (Auto) (NEGATIVE) /HPF Urine Culture Reflexed (NO) Urine Glucose (NEGATIVE) mg/dL SARS-CoV-2 (PCR) (NEGATIVE) 12/30/20 12/30/20 12/30/20 Range/Units 17:00 17:00 18:30 WBC (4.0-10.5) K/mm3 RBC (4.1-5.6) M/mm3 Hgb (12.5-18.0) gm/dl Hct (42-50) % MCV (78-100) fl MCH (26-32) pg MCHC (32-36) g/dl RDW (11.5-14.0) % Plt Count (150-450) K/mm3 MPV (7.5-11.0) fl Gran % (36.0-66.0) % Eos # (Auto) (0-0.5) Absolute Lymphs (auto) (1.0-4.6) Absolute Monos (auto) (0.0-1.3) Lymphocytes % (24.0-44.0) % Monocytes % (0.0-12.0) % Eosinophils % (0.00-5.0) % Basophils % (0.0-0.4) % Absolute Granulocytes (1.4-6.9) Basophils # (0-0.4) Sodium (137-145) mmol/L Potassium (3.5-5.1) mmol/L Chloride (98-107) mmol/L Carbon Dioxide (22-30) mmol/L Anion Gap (5-15) MEQ/L BUN (9-20) mg/dL Creatinine (0.66-1.25) mg/dL Estimated GFR ML/MIN Glucose (74-106) mg/dL POC Glucometer (74 to 106) mg/dL Lactic Acid (0.4-2.0) Calcium (8.4-10.2) mg/dL Magnesium 1.8 (1.6-2.3) mg/dL Total Bilirubin (0.2-1.3) mg/dL AST (17-59) U/L ALT (0-50) U/L Alkaline Phosphatase (38-126) U/L Creatine Kinase 93 (55-170) U/L Troponin I 0.013 (0.000-0.034) ng/mL Serum Total Protein (6.3-8.2) g/dL Albumin (3.5-5.0) g/dL Urine Color YELLOW (YELLOW) Urine Appearance CLEAR (CLEAR) Urine pH 5.0 (5-6) Ur Specific [place] 1.016 (1.005-1.025) Urine Protein NEGATIVE (Negative) Urine Ketones NEGATIVE (NEGATIVE) Urine Blood NEGATIVE (0-5) Wicho/ul Urine Nitrite NEGATIVE (NEGATIVE) Urine Bilirubin NEGATIVE (NEGATIVE) Urine Urobilinogen NEGATIVE (0-1) mg/dL Ur Leukocyte Esterase NEGATIVE (NEGATIVE) Urine WBC (Auto) NONE (0-5) /HPF Urine RBC (Auto) NONE (0-2) /HPF U Epithel Cells (Auto) NONE (FEW) /HPF Urine Bacteria (Auto) NONE (NEGATIVE) /HPF Urine Mucus (Auto) SLIGHT (NEGATIVE) /HPF Urine Culture Reflexed NO (NO) Urine Glucose NEGATIVE (NEGATIVE) mg/dL SARS-CoV-2 (PCR) (NEGATIVE) 12/30/20 12/30/20 12/30/20 Range/Units 18:58 19:06 21:01 WBC (4.0-10.5) K/mm3 RBC (4.1-5.6) M/mm3 Hgb (12.5-18.0) gm/dl Hct (42-50) % MCV (78-100) fl MCH (26-32) pg MCHC (32-36) g/dl RDW (11.5-14.0) % Plt Count (150-450) K/mm3 MPV (7.5-11.0) fl Gran % (36.0-66.0) % Eos # (Auto) (0-0.5) Absolute Lymphs (auto) (1.0-4.6) Absolute Monos (auto) (0.0-1.3) Lymphocytes % (24.0-44.0) % Monocytes % (0.0-12.0) % Eosinophils % (0.00-5.0) % Basophils % (0.0-0.4) % Absolute Granulocytes (1.4-6.9) Basophils # (0-0.4) Sodium (137-145) mmol/L Potassium (3.5-5.1) mmol/L Chloride (98-107) mmol/L Carbon Dioxide (22-30) mmol/L Anion Gap (5-15) MEQ/L BUN (9-20) mg/dL Creatinine (0.66-1.25) mg/dL Estimated GFR ML/MIN Glucose (74-106) mg/dL POC Glucometer 106 (74 to 106) mg/dL Lactic Acid (0.4-2.0) Calcium (8.4-10.2) mg/dL Magnesium (1.6-2.3) mg/dL Total Bilirubin (0.2-1.3) mg/dL AST (17-59) U/L ALT (0-50) U/L Alkaline Phosphatase (38-126) U/L Creatine Kinase (55-170) U/L Troponin I 0.016 (0.000-0.034) ng/mL Serum Total Protein (6.3-8.2) g/dL Albumin (3.5-5.0) g/dL Urine Color (YELLOW) Urine Appearance (CLEAR) Urine pH (5-6) Ur Specific [place] (1.005-1.025) Urine Protein (Negative) Urine Ketones (NEGATIVE) Urine Blood (0-5) Wicho/ul Urine Nitrite (NEGATIVE) Urine Bilirubin (NEGATIVE) Urine Urobilinogen (0-1) mg/dL Ur Leukocyte Esterase (NEGATIVE) Urine WBC (Auto) (0-5) /HPF Urine RBC (Auto) (0-2) /HPF U Epithel Cells (Auto) (FEW) /HPF Urine Bacteria (Auto) (NEGATIVE) /HPF Urine Mucus (Auto) (NEGATIVE) /HPF Urine Culture Reflexed (NO) Urine Glucose (NEGATIVE) mg/dL SARS-CoV-2 (PCR) NEGATIVE (NEGATIVE) 12/30/20 12/31/20 12/31/20 Range/Units 22:08 01:42 04:45 WBC (4.0-10.5) K/mm3 RBC (4.1-5.6) M/mm3 Hgb (12.5-18.0) gm/dl Hct (42-50) % MCV (78-100) fl MCH (26-32) pg MCHC (32-36) g/dl RDW (11.5-14.0) % Plt Count (150-450) K/mm3 MPV (7.5-11.0) fl Gran % (36.0-66.0) % Eos # (Auto) (0-0.5) Absolute Lymphs (auto) (1.0-4.6) Absolute Monos (auto) (0.0-1.3) Lymphocytes % (24.0-44.0) % Monocytes % (0.0-12.0) % Eosinophils % (0.00-5.0) % Basophils % (0.0-0.4) % Absolute Granulocytes (1.4-6.9) Basophils # (0-0.4) Sodium (137-145) mmol/L Potassium (3.5-5.1) mmol/L Chloride (98-107) mmol/L Carbon Dioxide (22-30) mmol/L Anion Gap (5-15) MEQ/L BUN (9-20) mg/dL Creatinine (0.66-1.25) mg/dL Estimated GFR ML/MIN Glucose (74-106) mg/dL POC Glucometer (74 to 106) mg/dL Lactic Acid (0.4-2.0) Calcium (8.4-10.2) mg/dL Magnesium (1.6-2.3) mg/dL Total Bilirubin (0.2-1.3) mg/dL AST (17-59) U/L ALT (0-50) U/L Alkaline Phosphatase (38-126) U/L Creatine Kinase (55-170) U/L Troponin I 0.019 0.023 0.025 (0.000-0.034) ng/mL Serum Total Protein (6.3-8.2) g/dL Albumin (3.5-5.0) g/dL Urine Color (YELLOW) Urine Appearance (CLEAR) Urine pH (5-6) Ur Specific [place] (1.005-1.025) Urine Protein (Negative) Urine Ketones (NEGATIVE) Urine Blood (0-5) Wicho/ul Urine Nitrite (NEGATIVE) Urine Bilirubin (NEGATIVE) Urine Urobilinogen (0-1) mg/dL Ur Leukocyte Esterase (NEGATIVE) Urine WBC (Auto) (0-5) /HPF Urine RBC (Auto) (0-2) /HPF U Epithel Cells (Auto) (FEW) /HPF Urine Bacteria (Auto) (NEGATIVE) /HPF Urine Mucus (Auto) (NEGATIVE) /HPF Urine Culture Reflexed (NO) Urine Glucose (NEGATIVE) mg/dL SARS-CoV-2 (PCR) (NEGATIVE) 12/31/20 12/31/20 12/31/20 Range/Units 04:45 05:00 07:22 WBC 5.2 (4.0-10.5) K/mm3 RBC 4.04 L (4.1-5.6) M/mm3 Hgb 12.1 L (12.5-18.0) gm/dl Hct 38.1 L (42-50) % MCV 94.3 (78-100) fl MCH 30.0 (26-32) pg MCHC 31.8 L (32-36) g/dl RDW 14.9 H (11.5-14.0) % Plt Count 202 (150-450) K/mm3 MPV 10.3 (7.5-11.0) fl Gran % 53.6 (36.0-66.0) % Eos # (Auto) 0.22 (0-0.5) Absolute Lymphs (auto) 1.54 (1.0-4.6) Absolute Monos (auto) 0.66 (0.0-1.3) Lymphocytes % 29.4 (24.0-44.0) % Monocytes % 12.6 H (0.0-12.0) % Eosinophils % 4.2 (0.00-5.0) % Basophils % 0.2 (0.0-0.4) % Absolute Granulocytes 2.80 (1.4-6.9) Basophils # 0.01 (0-0.4) Sodium 137 (137-145) mmol/L Potassium 3.8 (3.5-5.1) mmol/L Chloride 107 (98-107) mmol/L Carbon Dioxide 24 (22-30) mmol/L Anion Gap 9.6 (5-15) MEQ/L BUN 19 (9-20) mg/dL Creatinine 1.14 (0.66-1.25) mg/dL Estimated GFR > 60.0 ML/MIN Glucose 142 H (74-106) mg/dL POC Glucometer 147 H (74 to 106) mg/dL Lactic Acid (0.4-2.0) Calcium 9.6 (8.4-10.2) mg/dL Magnesium (1.6-2.3) mg/dL Total Bilirubin 0.20 (0.2-1.3) mg/dL AST 20 (17-59) U/L ALT 15 (0-50) U/L Alkaline Phosphatase 78 (38-126) U/L Creatine Kinase (55-170) U/L Troponin I (0.000-0.034) ng/mL Serum Total Protein 5.6 L (6.3-8.2) g/dL Albumin 3.2 L (3.5-5.0) g/dL Urine Color (YELLOW) Urine Appearance (CLEAR) Urine pH (5-6) Ur Specific [place] (1.005-1.025) Urine Protein (Negative) Urine Ketones (NEGATIVE) Urine Blood (0-5) Wicho/ul Urine Nitrite (NEGATIVE) Urine Bilirubin (NEGATIVE) Urine Urobilinogen (0-1) mg/dL Ur Leukocyte Esterase (NEGATIVE) Urine WBC (Auto) (0-5) /HPF Urine RBC (Auto) (0-2) /HPF U Epithel Cells (Auto) (FEW) /HPF Urine Bacteria (Auto) (NEGATIVE) /HPF Urine Mucus (Auto) (NEGATIVE) /HPF Urine Culture Reflexed (NO) Urine Glucose (NEGATIVE) mg/dL SARS-CoV-2 (PCR) (NEGATIVE) 12/31/20 Range/Units 11:17 WBC (4.0-10.5) K/mm3 RBC (4.1-5.6) M/mm3 Hgb (12.5-18.0) gm/dl Hct (42-50) % MCV (78-100) fl MCH (26-32) pg MCHC (32-36) g/dl RDW (11.5-14.0) % Plt Count (150-450) K/mm3 MPV (7.5-11.0) fl Gran % (36.0-66.0) % Eos # (Auto) (0-0.5) Absolute Lymphs (auto) (1.0-4.6) Absolute Monos (auto) (0.0-1.3) Lymphocytes % (24.0-44.0) % Monocytes % (0.0-12.0) % Eosinophils % (0.00-5.0) % Basophils % (0.0-0.4) % Absolute Granulocytes (1.4-6.9) Basophils # (0-0.4) Sodium (137-145) mmol/L Potassium (3.5-5.1) mmol/L Chloride (98-107) mmol/L Carbon Dioxide (22-30) mmol/L Anion Gap (5-15) MEQ/L BUN (9-20) mg/dL Creatinine (0.66-1.25) mg/dL Estimated GFR ML/MIN Glucose (74-106) mg/dL POC Glucometer 247 H (74 to 106) mg/dL Lactic Acid (0.4-2.0) Calcium (8.4-10.2) mg/dL Magnesium (1.6-2.3) mg/dL Total Bilirubin (0.2-1.3) mg/dL AST (17-59) U/L ALT (0-50) U/L Alkaline Phosphatase (38-126) U/L Creatine Kinase (55-170) U/L Troponin I (0.000-0.034) ng/mL Serum Total Protein (6.3-8.2) g/dL Albumin (3.5-5.0) g/dL Urine Color (YELLOW) Urine Appearance (CLEAR) Urine pH (5-6) Ur Specific [place] (1.005-1.025) Urine Protein (Negative) Urine Ketones (NEGATIVE) Urine Blood (0-5) Wicho/ul Urine Nitrite (NEGATIVE) Urine Bilirubin (NEGATIVE) Urine Urobilinogen (0-1) mg/dL Ur Leukocyte Esterase (NEGATIVE) Urine WBC (Auto) (0-5) /HPF Urine RBC (Auto) (0-2) /HPF U Epithel Cells (Auto) (FEW) /HPF Urine Bacteria (Auto) (NEGATIVE) /HPF Urine Mucus (Auto) (NEGATIVE) /HPF Urine Culture Reflexed (NO) Urine Glucose (NEGATIVE) mg/dL SARS-CoV-2 (PCR) (NEGATIVE) Micro Results-Entire Visit: Accuchecks Date 12/31/20 Date 12/31/20 Date 12/30/20 Time 11:17 Time 07:22 Time 22:00 - Radiology Exams Ordered Rad Exams-Entire Visit: Radiology Procedures Category Date Time Status CERVICAL SPINE WO CONTRAST [CT] Stat Exams 12/30/20 16:42 Completed CHEST 1 VIEW (PORTABLE) Stat Exams 12/30/20 16:43 Completed HEAD WITHOUT CONTRAST [CT] Stat Exams 12/30/20 16:43 Completed - Procedures and Test Procedures and Tests throughout Hospitalization: Therapy Orders & Screens 12/30/20 21:26 Respiratory Therapy Assessment DAILY Comment: Diagnosis: GEN WEAKNESS 12/31/20 08:21 PT Eval & Treat (MD Order) ONCE Reason for Eval:: GEN WEAKNESS, CAME FROM HOME Diagnosis: GEN WEAKNESS - Discharge Discharge Date: 12/31/20 Disposition: Home, Self-Care Condition: Stable Prescriptions: No Action Aspirin [Aspir 81] 81 mg PO DAILY Isosorbide Mononitrate 30 mg [Imdur 30 MG] 30 mg PO DAILY Potassium Chloride 10 Meq Tab* [Klor Con 10 MEQ] 10 meq PO BID Pravastatin Sodium 10 mg [Pravachol 10 MG] 10 mg PO HS Carvedilol 6.25 mg [Coreg 6.25 MG] 3.125 mg PO BID Lisinopril/Hydrochlorothiazide [Lisinopril-Hctz 20-25 mg Tab] 20 - 25 mg PO DAILY Tamsulosin HCl 0.4 mg [Flomax 0.4 MG] 0.4 mg PO DAILY Oxybutynin Chloride [Oxybutynin Chloride ER] 5 mg PO DAILY PARoxetine HCL [Paroxetine HCl] 10 mg PO DAILY Folic Acid 1 mg PO DAILY Acetaminophen 500 mg [Tylenol Extra Strength 500 mg] 500 - 1,000 mg PO Q6HPRN PRN PRN Reason: Pain And/Or Fever Clopidogrel Bisulfate 75 mg [PLAVIX 75 MG Tablet] 75 mg PO DAILY Omeprazole 40 mg PO BID Vitamin E 100 unit PO BID Empagliflozin/Metformin HCl [Synjardy Xr 25-1,000 mg Tablet] 2 each PO BID Instructions: Preventing Falls, Generalized Weakness (DC) Additional Instructions: [facility] HAS BEEN [facility]. THEY WILL MAKE CONTACT WITH YOU TO SET UP A VISIT FOR SUNDAY. THEIR PHONE NUMBER IS [phone] Follow up with: TIMOTHY PONCE MD [Primary Care Provider] - 01/06/21 10:30 am
== END 2020-12-31 15:15 | disposition home health service (06) ==
LOC: ED 16:35 → MED SURG 20:30
PROVIDERS: ADMIT General Practice; ATTEND General Practice
DX: R53.1 Weakness (principal); E11.22 Type 2 diabetes mellitus with diabetic chronic kidney disease; I12.9 Hypertensive chronic kidney disease with stage 1 through stage 4 chronic kidney disease, or unspecified chronic kidney disease; N18.32 Chronic kidney disease, stage 3b; R53.83 Other fatigue; Z86.73 Personal history of transient ischemic attack (TIA), and cerebral infarction without residual deficits; W18.12XA Fall from or off toilet with subsequent striking against object, initial encounter; Z79.899 Other long term (current) drug therapy; Z79.01 Long term (current) use of anticoagulants; Z20.828 Contact with and (suspected) exposure to other viral communicable diseases
CPT/HCPCS: 36000; 36415; 70450; 71045; 72125; 80053; 81001; 82550; 82947; 83605; 83735; 84484; 85025; 93005; 94760; 96360; 97161; 99285; U0003; 93268; A9270-GY; G0378

== ENCOUNTER 2021-02-08 15:59 | Emergency (ER) | payer MEDICARE ==
[2021-02-08] MEDS ORDERED: PROTONIX 40 MG IV IV ONE ×2 (16:26→16:40)
--- NOTE | 2021-02-08 16:40 | ERPHSYRPT ---
- History of Present Illness Time Seen by Provider: 02/08/21 16:03 Source: patient Exam Limitations: no limitations Patient Subjective Stated Complaint: Pt states "I have had dark black stools for awhile now and today I had a bout of bright red blood. I have to push and dig it out." Triage Nursing Assessment: Pt presented alert and oriented X3, skin pwd Pt ambulates with a slow shuffling gait, able to speak in clear full sentences. Pt in no apparent respiratory distres. Physician History: 85 years old male with multiple medical problems including anemia on ferrous sulfate with constipation presented to the ER for evaluation of rectal bleeding. Patient report he has a chronic constipation and has to push hard and when he did this today, there was some bleeding fresh with it. It improved on its own. No abdominal pain. Patient does report having dark stool for almost a month without any epigastric pain, nausea or vomiting. He denies any weakness fatigue or tiredness. Home health saw black stain and patient is sent in ER for further evaluation. Does have history of hemorrhoids. Timing/Duration: today, resolved prior to arrival, sudden, improved Severity: moderate Associated Symptoms: No nausea, No vomiting, No abdominal pain, No shortness of breath, No heartburn, No cough, No chills, No chest pain, No fever, No headache s, No loss of appetite, No malaise, No syncope, No seizure, No weakness Allergies/Adverse Reactions: No Known Drug Allergies Allergy (Verified 12/30/20 16:52) Home Medications: Aspirin [Aspir 81] 81 mg PO DAILY 07/23/12 [History] Isosorbide Mononitrate 30 mg [Imdur 30 MG] 30 mg PO DAILY 09/21/12 [History] Potassium Chloride 10 Meq Tab* [Klor Con 10 MEQ] 10 meq PO BID 09/21/12 [History] Pravastatin Sodium 10 mg [Pravachol 10 MG] 10 mg PO HS 09/21/12 [History] Carvedilol 6.25 mg [Coreg 6.25 MG] 6.25 mg PO BID 02/04/15 [History] Lisinopril/Hydrochlorothiazide [Lisinopril-Hctz 20-25 mg Tab] 20 - 25 mg PO DAILY 02/04/15 [History] Tamsulosin HCl 0.4 mg [Flomax 0.4 MG] 0.4 mg PO DAILY 08/08/17 [History] Acetaminophen 500 mg [Tylenol Extra Strength 500 mg] 500 - 1,000 mg PO Q6HPRN PRN 07/28/19 [History] Folic Acid 1 mg PO DAILY 07/28/19 [History] Oxybutynin Chloride [Oxybutynin Chloride ER] 5 mg PO DAILY 07/28/19 [History] PARoxetine HCL [Paroxetine HCl] 10 mg PO DAILY 07/28/19 [History] Clopidogrel Bisulfate 75 mg [PLAVIX 75 MG Tablet] 75 mg PO DAILY 04/21/20 [History] Omeprazole 40 mg PO BID 04/22/20 [History] Vitamin E 100 unit PO BID 08/01/20 [History] Empagliflozin/Metformin HCl [Synjardy Xr 25-1,000 mg Tablet] 2 each PO BID 12/30/20 [History] Hx Tetanus, Diphtheria Vaccination/Date Given: No Hx Influenza Vaccination/Date Given: Yes Hx Pneumococcal Vaccination/Date Given: Yes Immunizations Up to Date: Yes Travel Risk - International Travel Have you traveled outside of the country in past 3 weeks: No - Coronavirus Screening Are you exhibiting any of the following symptoms?: No Close contact with a COVID-19 positive Pt in past 14-21 Days: No - Vaccine Status Have you recieved a Covid-19 vaccination: Yes 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 - Vaccination Dates Dates if Unknown: 11/2020 - Review of Systems Constitutional: No Symptoms Eyes: No Symptoms Ears, Nose, & Throat: No Symptoms Respiratory: No Symptoms Cardiac: No Symptoms Abdominal/Gastrointestinal: Hematochezia Genitourinary Symptoms: No Symptoms Musculoskeletal: No Symptoms Skin: No Symptoms Neurological: No Symptoms Psychological: No Symptoms Endocrine: No Symptoms Hematologic/Lymphatic: No Symptoms Immunological/Allergic: No Symptoms - Past Medical History Pertinent Past Medical History: Yes Neurological History: TIA ENT History: No Pertinent History Cardiac History: Coronary Artery Disease, Hypertension Respiratory History: No Pertinent History Endocrine Medical History: Diabetes Type II Musculoskeletal History: Arthritis GI Medical History: GI Bleed History: No Pertinent History Psycho-Social History: No Pertinent History Male Reproductive Disorders: No Pertinent History - Past Surgical History Past Surgical History: Yes Neuro Surgical History: No Pertinent History Cardiac: Cardiac Catheterization, Cardiac Stent Respiratory: No Pertinent History Gastrointestinal: Hernia Repair Genitourinary: No Pertinent History Musculoskeletal: Orthopedic Surgery Male Surgical History: No Pertinent History Other Surgical History: Nasal surgery - Social History Smoking Status: Former smoker Exposure to second hand smoke: Yes Drug Use: none Patient Lives Alone: Yes Significant Family History: no pertinent family hx - Nursing Vital Signs Nursing Vital Signs: Initial Vital Signs Temperature 98.1 F 02/08/21 16:10 Pulse Rate 64 02/08/21 16:10 Respiratory Rate 20 02/08/21 16:10 Blood Pressure 159/76 02/08/21 16:10 O2 Sat by Pulse Oximetry 98 02/08/21 16:10 Pain Scale Pain Intensity 0 - Physical Exam General Appearance: no apparent distress, alert Eye Exam: PERRL/EOMI Ears, Nose, Throat Exam: normal ENT inspection, pharynx normal Neck Exam: normal inspection, non-tender, full range of motion Respiratory Exam: normal breath sounds, lungs clear Cardiovascular Exam: regular rate/rhythm, normal heart sounds Gastrointestinal/Abdomen Exam: soft, normal bowel sounds, No tenderness Rectal Exam: normal rectal tone, hemorrhoids (No bleeding or thrombosis), No tenderness, No decreased tone Back Exam: normal inspection Extremity Exam: normal inspection Neurologic Exam: alert, oriented x 3, cooperative Skin Exam: normal color SpO2 Interpretation: normal SpO2: 98 O2 Delivery: Room Air Ordered Tests: Active Orders 24 hr Category Date Time Status IV Insertion STAT Care 02/08/21 16:26 Active CBC W DIFF Stat Lab 02/08/21 16:26 Completed CMP Stat Lab 02/08/21 16:46 Completed FECAL OCCULT BLOOD - SCREENING Stat Lab 02/08/21 16:27 Ordered Lactic Acid Stat Lab 02/08/21 16:40 Completed PROTIME WITH INR Stat Lab 02/08/21 16:46 Completed PTT Stat Lab 02/08/21 16:46 Completed UA W/RFX UR CULTURE Stat Lab 02/08/21 16:27 Ordered Medication Summary Generic Name Dose Route Start Last Admin Trade Name Freq PRN Reason Stop Dose Admin Sodium Chloride 500 mls @ 500 mls/hr 02/08/21 17:30 02/08/21 17:50 Sodium Chloride 0.9% 500 Ml IV 02/08/21 18:29 500 mls/hr .Q1H ONE Administration Discontinued Medications Generic Name Dose Route Start Last Admin Trade Name Daniella PRN Reason Stop Dose Admin Sodium Chloride Confirm 02/08/21 17:48 Sodium Chloride 0.9% 500 Ml Administered 02/08/21 17:49 Dose 500 mls @ ud IV .STK-MED ONE Pantoprazole Sodium 40 mg 02/08/21 16:26 02/08/21 16:47 Protonix 40 Mg Iv IV 02/08/21 16:27 40 mg STAT ONE Administration Pantoprazole Sodium Confirm 02/08/21 16:40 Protonix 40 Mg Iv Administered 02/08/21 16:41 Dose 40 mg IV .STK-MED ONE Lab/Rad Data: Laboratory Result Diagrams 02/08/21 16:26 02/08/21 16:46 Laboratory Results 02/08/21 02/08/21 02/08/21 Range/Units 16:46 16:46 16:40 WBC (4.0-10.5) K/mm3 RBC (4.1-5.6) M/mm3 Hgb (12.5-18.0) gm/dl Hct (42-50) % MCV (78-100) fl MCH (26-32) pg MCHC (32-36) g/dl RDW (11.5-14.0) % Plt Count (150-450) K/mm3 MPV (7.5-11.0) fl Gran % (36.0-66.0) % Eos # (Auto) (0-0.5) Absolute Lymphs (auto) (1.0-4.6) Absolute Monos (auto) (0.0-1.3) Lymphocytes % (24.0-44.0) % Monocytes % (0.0-12.0) % Eosinophils % (0.00-5.0) % Basophils % (0.0-0.4) % Absolute Granulocytes (1.4-6.9) Basophils # (0-0.4) PT 11.1 (9.4-12.5) SECONDS INR 0.94 (0.8-3.0) APTT 29.8 (25.1-36.5) SECONDS Sodium 139 (137-145) mmol/L Potassium 4.5 (3.5-5.1) mmol/L Chloride 106 (98-107) mmol/L Carbon Dioxide 21 L (22-30) mmol/L Anion Gap 16.0 H (5-15) MEQ/L BUN 26 H (9-20) mg/dL Creatinine 1.54 H (0.66-1.25) mg/dL Estimated GFR 45.8 ML/MIN Glucose 226 H (74-106) mg/dL Lactic Acid 2.1 H (0.4-2.0) Calcium 9.7 (8.4-10.2) mg/dL Total Bilirubin 0.20 (0.2-1.3) mg/dL AST 24 (17-59) U/L ALT 19 (0-50) U/L Alkaline Phosphatase 73 (38-126) U/L Serum Total Protein 6.4 (6.3-8.2) g/dL Albumin 3.7 (3.5-5.0) g/dL 02/08/21 Range/Units 16:26 WBC 5.6 (4.0-10.5) K/mm3 RBC 3.94 L (4.1-5.6) M/mm3 Hgb 12.3 L (12.5-18.0) gm/dl Hct 38.0 L (42-50) % MCV 96.4 (78-100) fl MCH 31.2 (26-32) pg MCHC 32.4 (32-36) g/dl RDW 14.2 H (11.5-14.0) % Plt Count 209 (150-450) K/mm3 MPV 11.2 H (7.5-11.0) fl Gran % 61.7 (36.0-66.0) % Eos # (Auto) 0.20 (0-0.5) Absolute Lymphs (auto) 1.40 (1.0-4.6) Absolute Monos (auto) 0.52 (0.0-1.3) Lymphocytes % 25.0 (24.0-44.0) % Monocytes % 9.3 (0.0-12.0) % Eosinophils % 3.6 (0.00-5.0) % Basophils % 0.4 (0.0-0.4) % Absolute Granulocytes 3.45 (1.4-6.9) Basophils # 0.02 (0-0.4) PT (9.4-12.5) SECONDS INR (0.8-3.0) APTT (25.1-36.5) SECONDS Sodium (137-145) mmol/L Potassium (3.5-5.1) mmol/L Chloride (98-107) mmol/L Carbon Dioxide (22-30) mmol/L Anion Gap (5-15) MEQ/L BUN (9-20) mg/dL Creatinine (0.66-1.25) mg/dL Estimated GFR ML/MIN Glucose (74-106) mg/dL Lactic Acid (0.4-2.0) Calcium (8.4-10.2) mg/dL Total Bilirubin (0.2-1.3) mg/dL AST (17-59) U/L ALT (0-50) U/L Alkaline Phosphatase (38-126) U/L Serum Total Protein (6.3-8.2) g/dL Albumin (3.5-5.0) g/dL - Progress Progress: improved, re-examined Progress Note: 02/08/21 17:57 85 years old is evaluated in the ER for dark stool and lower GI bleed. Patient reported straining to have bowel movement today without any obvious fissure but patient has external hemorrhoid, possibly has internal hemorrhoids with causing fresh bleeding from hard stool. H&H is stable. Mild acute on chronic kidney disease and is given fluids. No abdominal tenderness at all. I believe dark stool is secondary to taking iron pills and that is why he has a stable H&H despite having dark stool for a month. I do not think is an upper GI bleed. Discussed with , reviewed work-up, agreed with discharge and outpatient follow-up with GI would be arranged by PCP. reports that it was done in the past as well but patient did not have a good bowel prep but will make sure this time he gets it done. Plan discussed with patient who seems understanding. Discussed signs symptoms of worsening needing return to ER for another episode of fresh blood, abdominal discomfort, generalized weakness fatigue etc. Discussed with : Devan Counseled pt/family regarding: lab results, diagnosis, need for follow-up - Departure Departure Disposition: Home Clinical Impression: Lower GI bleed Condition: Stable Critical Care Time: No Referrals: TIMOTHY PONCE MD [Primary Care Provider] - (Call tomorrow for appointment) Instructions: Gastrointestinal Bleeding (DC) Additional Instructions: Do not take ibuprofen. Take stool softener/MiraLAX regularly. Follow-up with primary care for reevaluation to be referred to GI for further evaluation with scope. Return to ER if again have episode of fresh blood in stool, abdominal discomfort, generalized weakness fatigue etc. Continue with iron pills.
[2021-02-08 16:43] LABS: Absolute Neutrophil Ct (ANC) 3.45 (1.4-6.9); BASOPHIL % 0.4 % (0.0-0.4); Basophil (Absolute #) 0.02 (0-0.4); Eosinophil % 3.6 % (0.00-5.0); Hemoglobin 12.3 gm/dl (12.5-18.0); Mean Cell Volume 96.4 fl (78-100); Mean Corpuscular Hemoglobin 31.2 pg (26-32); Mean Corpuscular Hgb Concent. 32.4 g/dl (32-36); Mean Platelet Volume 11.2 fl (7.5-11.0); Monocyte (Absolute #) 0.52 (0.0-1.3); Monocytes % 9.3 % (0.0-12.0); Neutrophil % 61.7 % (36.0-66.0); Platelet Count 209 K/mm3 (150-450); Red Blood Count 3.94 M/mm3 (4.1-5.6); Red Cell Distribution Width 14.2 % (11.5-14.0); White Blood Count 5.6 K/mm3 (4.0-10.5)
[2021-02-08 16:53] LABS: INR 0.94 (0.8-3.0); PROTIME 11.1 SECONDS (9.4-12.5)
[2021-02-08 16:55] LABS: ALBUMIN 3.7 g/dL (3.5-5.0); BILIRUBIN,TOTAL 0.2 mg/dL (0.2-1.3); Calcium 9.7 mg/dL (8.4-10.2); Creatinine 1 1.54 mg/dL (0.66-1.25); EST GLOMERULAR FILTRATION RATE 45.8 ML/MIN; PTT 29.8 SECONDS (25.1-36.5); Potassium 4.5 mmol/L (3.5-5.1); Total Protein 6.4 g/dL (6.3-8.2)
[2021-02-08] MEDS ORDERED: Sodium Chloride 0.9% 500 ML 500 ML IV ONE ×2 (17:30→17:48)
[2021-02-08 18:01] VITALS: O2SAT 98
[2021-02-08 18:14] VITALS: BP 150/82; PULSE 58
== END 2021-02-08 18:22 | disposition home or self-care (01) ==
LOC: ED 15:59
DX: K92.2 Gastrointestinal hemorrhage, unspecified (principal); Z79.899 Other long term (current) drug therapy; I10 Essential (primary) hypertension; I25.10 Atherosclerotic heart disease of native coronary artery without angina pectoris; E11.9 Type 2 diabetes mellitus without complications; Z86.73 Personal history of transient ischemic attack (TIA), and cerebral infarction without residual deficits
CPT/HCPCS: 36000; 36415; 80053; 83605; 85025; 85610; 85730; 96374; 99284

== ENCOUNTER 2021-09-22 10:24 | Observation (INO) | payer MEDICARE ==
--- NOTE | 2021-09-22 10:28 | ERPHSYRPT ---
- History of Present Illness Time Seen by Provider: 09/22/21 10:28 Source: patient, family Exam Limitations: no limitations Physician History: This is an 86-year-old white male patient of Dr. Ponce (primary care physician) who has a history of hypertension, TIAs, coronary disease, diabetes, elevated cholesterol and gastroesophageal reflux disease on Plavix and presents to the emergency department for confusion and fever. Patient lives at home with his sister. She tried to wake him up this morning and he was very sleepy. Eventually he did wake up but was confused. He felt warm and presented to the emergency department with a fever this low-grade of 99 F. He has had this type of issue in the past when he has had a urinary tract infection. He denies chest pain. He denies shortness of breath. He has no abdominal pain. He has had no vomiting or diarrhea. Timing/Duration: today Fever Severity: mild Fever Therapy DIRECTOR OF LAND: none Associated Symptoms: denies symptoms Allergies/Adverse Reactions: No Known Drug Allergies Allergy (Verified 09/22/21 10:37) Home Medications: Aspirin [Aspir 81] 81 mg PO DAILY 07/23/12 [History] Isosorbide Mononitrate 30 mg [Imdur 30 MG] 30 mg PO DAILY 09/21/12 [Hi story] Potassium Chloride 10 Meq Tab* [Klor Con 10 MEQ] 10 meq PO BID 09/21/12 [History] Pravastatin Sodium 10 mg [Pravachol 10 MG] 10 mg PO HS 09/21/12 [History] Carvedilol 6.25 mg [Coreg 6.25 MG] 3.125 mg PO BID 02/04/15 [History] Lisinopril/Hydrochlorothiazide [Lisinopril-Hctz 20-25 mg Tab] 20 - 25 mg PO DAILY 02/04/15 [History] Tamsulosin HCl 0.4 mg [Flomax 0.4 MG] 0.4 mg PO DAILY 08/08/17 [History] Acetaminophen 500 mg [Tylenol Extra Strength 500 mg] 500 - 1,000 mg PO Q 6HPRN PRN 07/28/19 [History] Folic Acid 1 mg PO DAILY 07/28/19 [History] Oxybutynin Chloride [Oxybutynin Chloride ER] 5 mg PO DAILY 07/28/19 [History] Clopidogrel Bisulfate 75 mg [PLAVIX 75 MG Tablet] 75 mg PO DAILY 04/21/20 [History] Omeprazole 40 mg PO BID 04/22/20 [History] Vitamin E 100 unit PO BID 08/01/20 [History] Ferrous Sulfate [Iron] 1 ea DAILY 09/22/21 [History] Glimepiride 2 mg [Amaryl 2 MG] 1 ea DAILY 09/22/21 [History] Metformin HCl [Metformin ER Osmotic] 1 ea DAILY 09/22/21 [History] Vit E/B1/B6/FA/B12/Ala/Coq10 [Folic-K Capsule] 1 ea DAILY 09/22/21 [History] Hx Tetanus, Diphtheria Vaccination/Date Given: No Hx Influenza Vaccination/Date Given: Yes Hx Pneumococcal Vaccination/Date Given: Yes Travel Risk - Coronavirus Screening Are you exhibiting any of the following symptoms?: Yes Symptoms: Fever Close contact with a COVID-19 positive Pt in past 14-21 Days: No - Vaccine Status Have you recieved a Covid-19 vaccination: Yes 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 - Vaccination Dates Dates if Unknown: 11/2020 - Review of Systems Constitutional: Fever, Weakness Eyes: No Symptoms Ears, Nose, & Throat: No Symptoms Respiratory: No Symptoms Cardiac: No Symptoms Abdominal/Gastrointestinal: No Symptoms Genitourinary Symptoms: No Symptoms Musculoskeletal: No Symptoms Skin: No Symptoms Neurological: No Symptoms Psychological: No Symptoms Endocrine: No Symptoms Hematologic/Lymphatic: No Symptoms Immunological/Allergic: No Symptoms All Other Systems: Reviewed and Negative - Past Medical History Pertinent Past Medical History: Yes Neurological History: TIA ENT History: No Pertinent History Cardiac History: Coronary Artery Disease, Hypertension Respiratory History: No Pertinent History Endocrine Medical History: Diabetes Type II Musculoskeletal History: Arthritis GI Medical History: GI Bleed History: No Pertinent History Psycho-Social History: No Pertinent History Male Reproductive Disorders: No Pertinent History - Past Surgical History Past Surgical History: Yes Neuro Surgical History: No Pertinent History Cardiac: Cardiac Catheterization, Cardiac Stent Respiratory: No Pertinent History Gastrointestinal: Hernia Repair Genitourinary: No Pertinent History Musculoskeletal: Orthopedic Surgery Male Surgical History: No Pertinent History Other Surgical History: Nasal surgery - Social History Smoking Status: Former smoker Exposure to second hand smoke: Yes Drug Use: none Patient Lives Alone: Yes Significant Family History: no pertinent family hx - Nursing Vital Signs Nursing Vital Signs: Initial Vital Signs Temperature 99.0 F 09/22/21 10:24 Pulse Rate 86 09/22/21 10:24 Respiratory Rate 18 09/22/21 10:24 Blood Pressure 169/87 09/22/21 10:24 O2 Sat by Pulse Oximetry 95 09/22/21 10:24 Pain Scale Pain Intensity 0 - Physical Exam General Appearance: no apparent distress, alert Eye Exam: PERRL/EOMI, eyes nml inspection ENT Exam: normal ENT inspection, TMs normal, pharynx normal Neck Exam: normal inspection, non-tender, supple, full range of motion, trachea midline Respiratory Exam: normal breath sounds, lungs clear, no respiratory distress, no accessory muscle use, No chest non-tender, No respiratory distress Cardiovascular/Chest Exam: normal heart sounds, regular rate/rhythm, normal peripheral pulses Gastrointestinal/Abdominal Exam: soft, non tender, no distention, no mass, no guarding, no ecchymosis, no organomegaly, no pulsatile mass, normal bowel sounds Rectal Exam: not done Extremity Exam: non-tender, normal range of motion, normal inspection Neurologic Exam: alert, oriented x 3, cooperative, meringuer II-XII nml as tested, normal mood/affect, nml cerebellar function, nml station & gait, sensation nml Skin Exam: normal color, warm, dry Lymphatic: No adenopathy SpO2 Interpretation: normal O2 Delivery: Room Air - Course Nursing assessment & vital signs reviewed: Yes Ordered Tests: Active Orders 24 hr Category Date Time Status Development Analyst STAT Care 09/22/21 10:50 Active IV Insertion STAT Care 09/22/21 10:48 Active POCT Glucose Check STAT Care 09/22/21 12:56 Active Pulse Oximetry (ED) STAT Care 09/22/21 10:48 Active CHEST 1 VIEW (PORTABLE) Stat Exams 09/22/21 10:49 Completed HEAD WITHOUT CONTRAST [CT] Stat Exams 09/22/21 10:50 Completed BLOOD CULTURE Stat Lab 09/22/21 11:10 Received CBC W DIFF Stat Lab 09/22/21 10:45 Completed CMP Stat Lab 09/22/21 10:45 Completed INFLUENZA A+B EDIS Stat Lab 09/22/21 11:12 Completed Lactic Acid Stat Lab 09/22/21 10:58 Completed Lactic Acid Stat Lab 09/22/21 13:04 Stop Req [place] Screen Stat Lab 09/22/21 10:45 Completed POCT GLUCOSE Stat Lab 09/22/21 12:56 Completed Medication Summary Generic Name Dose Route Start Last Admin Trade Name Daniella PRN Reason Stop Dose Admin Sodium Chloride 1,000 mls @ 100 mls/hr 09/22/21 11:00 09/22/21 11:08 Sodium Chloride 0.9% 1000 Ml IV 10/22/21 10:59 100 mls/hr .Q10H ART Administration Piperacillin Sod/Tazobactam 100 mls @ 200 mls/hr 09/22/21 13:14 Sod 3.375 gm/ Sodium Chloride IV 09/22/21 13:43 STAT ONE Lab/Rad Data: Laboratory Result Diagrams 09/22/21 10:45 09/22/21 10:45 Laboratory Results 09/22/21 09/22/21 09/22/21 Range/Units 12:56 11:14 11:14 WBC (4.0-10.5) K/mm3 RBC (4.1-5.6) M/mm3 Hgb (12.5-18.0) gm/dl Hct (42-50) % MCV (78-100) fl MCH (26-32) pg MCHC (32-36) g/dl RDW (11.5-14.0) % Plt Count (150-450) K/mm3 MPV (7.5-11.0) fl Gran % (36.0-66.0) % Eos # (Auto) (0-0.5) Absolute Lymphs (auto) (1.0-4.6) Absolute Monos (auto) (0.0-1.3) Lymphocytes % (24.0-44.0) % Monocytes % (0.0-12.0) % Eosinophils % (0.00-5.0) % Basophils % (0.0-0.4) % Absolute Granulocytes (1.4-6.9) Basophils # (0-0.4) Sodium (137-145) mmol/L Potassium (3.5-5.1) mmol/L Chloride (98-107) mmol/L Carbon Dioxide (22-30) mmol/L Anion Gap (5-15) MEQ/L BUN (9-20) mg/dL Creatinine (0.66-1.25) mg/dL Estimated GFR ML/MIN Glucose (74-106) mg/dL POC Glucometer 203 H (74 to 106) mg/dL Lactic Acid (0.4-2.0) Calcium (8.4-10.2) mg/dL Total Bilirubin (0.2-1.3) mg/dL AST (17-59) U/L ALT (0-50) U/L Alkaline Phosphatase (38-126) U/L Serum Total Protein (6.3-8.2) g/dL Albumin (3.5-5.0) g/dL Urinalys Dipstick Clnc Urine Color Urine Appearance Urine pH Ur Specific Levering Urine Protein POC Urine Protein Conf (Negative) Urine Ketones Urine Blood Urine Nitrite Urine Bilirubin Urine Urobilinogen Ur Leukocyte Esterase Urine Leukocytes (NEGATIVE) Urine WBC (Auto) (0-5) /HPF Urine RBC (Auto) (0-2) /HPF U Epithel Cells (Auto) (FEW) /HPF Urine Bacteria (Auto) (NEGATIVE) /HPF Urine RBC (0-5) Wicho/ul U Non-Squamous Epi Cells Ur Culture Indicated? Urine Culture Reflexed Urine Glucose (NEGATIVE) mg/dL Monoscreen (Negative) Influenza Type A Ag NEGATIVE (NEGATIVE) Influenza Type B Ag NEGATIVE (NEGATIVE) RSV (PCR) NEGATIVE (Negative) SARS-CoV-2 (PCR) NEGATIVE (NEGATIVE) Group A Strep Antibody NOT DETECTED (NEGATIVE) 09/22/21 09/22/21 09/22/21 Range/Units 11:12 10:58 10:54 WBC (4.0-10.5) K/mm3 RBC (4.1-5.6) M/mm3 Hgb (12.5-18.0) gm/dl Hct (42-50) % MCV (78-100) fl MCH (26-32) pg MCHC (32-36) g/dl RDW (11.5-14.0) % Plt Count (150-450) K/mm3 MPV (7.5-11.0) fl Gran % (36.0-66.0) % Eos # (Auto) (0-0.5) Absolute Lymphs (auto) (1.0-4.6) Absolute Monos (auto) (0.0-1.3) Lymphocytes % (24.0-44.0) % Monocytes % (0.0-12.0) % Eosinophils % (0.00-5.0) % Basophils % (0.0-0.4) % Absolute Granulocytes (1.4-6.9) Basophils # (0-0.4) Sodium (137-145) mmol/L Potassium (3.5-5.1) mmol/L Chloride (98-107) mmol/L Carbon Dioxide (22-30) mmol/L Anion Gap (5-15) MEQ/L BUN (9-20) mg/dL Creatinine (0.66-1.25) mg/dL Estimated GFR ML/MIN Glucose (74-106) mg/dL POC Glucometer (74 to 106) mg/dL Lactic Acid 1.9 (0.4-2.0) Calcium (8.4-10.2) mg/dL Total Bilirubin (0.2-1.3) mg/dL AST (17-59) U/L ALT (0-50) U/L Alkaline Phosphatase (38-126) U/L Serum Total Protein (6.3-8.2) g/dL Albumin (3.5-5.0) g/dL Urinalys Dipstick Clnc MAIN LAB Urine Color Cancelled Urine Appearance Cancelled Urine pH Cancelled Ur Specific [place]ever[place] Cancelled Urine Protein Cancelled POC Urine Protein Conf TRACE (Negative) Urine Ketones Cancelled Urine Blood Cancelled Urine Nitrite Cancelled Urine Bilirubin Cancelled Urine Urobilinogen Cancelled Ur Leukocyte Esterase Cancelled Urine Leukocytes NEGATIVE (NEGATIVE) Urine WBC (Auto) NONE (0-5) /HPF Urine RBC (Auto) 0-2 (0-2) /HPF U Epithel Cells (Auto) NONE (FEW) /HPF Urine Bacteria (Auto) NONE (NEGATIVE) /HPF Urine RBC TRACE-INTACT (0-5) Wicho/ul U Non-Squamous Epi Cells Cancelled Ur Culture Indicated? NO Urine Culture Reflexed Cancelled Urine Glucose 500 (NEGATIVE) mg/dL Monoscreen (Negative) Influenza Type A Ag NEGATIVE (NEGATIVE) Influenza Type B Ag NEGATIVE (NEGATIVE) RSV (PCR) (Negative) SARS-CoV-2 (PCR) (NEGATIVE) Group A Strep Antibody (NEGATIVE) 09/22/21 09/22/21 09/22/21 Range/Units 10:45 10:45 10:45 WBC 13.7 H (4.0-10.5) K/mm3 RBC 4.55 (4.1-5.6) M/mm3 Hgb 15.0 (12.5-18.0) gm/dl Hct 43.7 (42-50) % MCV 96.0 (78-100) fl MCH 33.0 H (26-32) pg MCHC 34.3 (32-36) g/dl RDW 13.2 (11.5-14.0) % Plt Count 194 (150-450) K/mm3 MPV 11.2 H (7.5-11.0) fl Gran % 86.9 H (36.0-66.0) % Eos # (Auto) 0.06 (0-0.5) Absolute Lymphs (auto) 0.74 L (1.0-4.6) Absolute Monos (auto) 0.99 (0.0-1.3) Lymphocytes % 5.4 L (24.0-44.0) % Monocytes % 7.2 (0.0-12.0) % Eosinophils % 0.4 (0.00-5.0) % Basophils % 0.1 (0.0-0.4) % Absolute Granulocytes 11.93 H (1.4-6.9) Basophils # 0.01 (0-0.4) Sodium 136 L (137-145) mmol/L Potassium 3.9 (3.5-5.1) mmol/L Chloride 103 (98-107) mmol/L Carbon Dioxide 23 (22-30) mmol/L Anion Gap 13.9 (5-15) MEQ/L BUN 24 H (9-20) mg/dL Creatinine 1.32 H (0.66-1.25) mg/dL Estimated GFR 54.5 ML/MIN Glucose 211 H (74-106) mg/dL POC Glucometer (74 to 106) mg/dL Lactic Acid (0.4-2.0) Calcium 10.3 H (8.4-10.2) mg/dL Total Bilirubin 1.10 (0.2-1.3) mg/dL AST 20 (17-59) U/L ALT 21 (0-50) U/L Alkaline Phosphatase 71 (38-126) U/L Serum Total Protein 7.0 (6.3-8.2) g/dL Albumin 4.0 (3.5-5.0) g/dL Urinalys Dipstick Clnc Urine Color Urine Appearance Urine pH Ur Specific [place] Urine Protein POC Urine Protein Conf (Negative) Urine Ketones Urine Blood Urine Nitrite Urine Bilirubin Urine Urobilinogen Ur Leukocyte Esterase Urine Leukocytes (NEGATIVE) Urine WBC (Auto) (0-5) /HPF Urine RBC (Auto) (0-2) /HPF U Epithel Cells (Auto) (FEW) /HPF Urine Bacteria (Auto) (NEGATIVE) /HPF Urine RBC (0-5) Wicho/ul U Non-Squamous Epi Cells Ur Culture Indicated? 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 There is new pansinusitis. Chest x-ray shows no acute cardiopulmonary process. 09/22/21 13:15 Medical decision making: This patient does have low-grade leukocytosis, low- grade fever, pansinusitis, and confusion. I spoke with his primary care provider, Dr. Ponce, and we will place him in observation and provide him with intravenous antibiotics, low rate IV fluid, monitoring, repeat labs in the morning and obtain a consultation for discharge planning. Discussed with : Devan Counseled pt/family regarding: lab results, diagnosis, rad results - Departure Departure Disposition: Observation Clinical Impression: Confusion, Weakness, Pansinusitis Condition: Stable Critical Care Time: No Referrals: TIMOTHY PONCE MD [Primary Care Provider] - Follow up/PCP as directed
[2021-09-22] MEDS ORDERED: Sodium Chloride 0.9% 1000 ML 1,000 ML IV SCH (11:00)
[2021-09-22] MEDS ORDERED: Sodium Chloride 0.9% 1000 ML 1,000 ML ONE (11:05)
[2021-09-22 11:28] LABS: Absolute Neutrophil Ct (ANC) 11.93 (1.4-6.9); Basophil (Absolute #) 0.01 (0-0.4); Eosinophil % 0.4 % (0.00-5.0); Eosinophil (Absolute #) 0.06 (0-0.5); Hematocrit 43.7 % (42-50); Lymphocyte (Absolute #) 0.74 (1.0-4.6); Lymphocytes % 5.4 % (24.0-44.0); Mean Corpuscular Hgb Concent. 34.3 g/dl (32-36); Mean Platelet Volume 11.2 fl (7.5-11.0); Monocyte (Absolute #) 0.99 (0.0-1.3); Monocytes % 7.2 % (0.0-12.0); Neutrophil % 86.9 % (36.0-66.0); Platelet Count 194 K/mm3 (150-450); Red Blood Count 4.55 M/mm3 (4.1-5.6); Red Cell Distribution Width 13.2 % (11.5-14.0); White Blood Count 13.7 K/mm3 (4.0-10.5)
[2021-09-22 11:32] LABS: Appearance CLEAR (CLEAR); Bilirubin NEGATIVE (NEGATIVE); Glucose 500 mg/dL (NEGATIVE); Ketones SMALL-15 (NEGATIVE); RBC TRACE-INTACT Ery/ul (0-5); Specific Gravity 1.015 (1.005-1.025)
[2021-09-22 11:33] LABS: Dipstick done @ ? MAIN LAB; Nitrite NEGATIVE (NEGATIVE); Protein,Urine Dip TRACE (Negative); RBC 0-2 /HPF (0-2); Urobilinogen 0.2 mg/dL (0-1)
--- NOTE | 2021-09-22 12:01 | XRAY ---
Indication: Confusion. Multiple contiguous axial images obtained through the head without contrast. Comparison: December 30, 2020. Again age-appropriate global atrophy, mild periventricular degenerative micro-ischemia bilaterally, and remote infarct left external capsule. No acute intracranial hemorrhage, abnormal extra-axial fluid collection, or mass effect. Fourth ventricle is midline without hydrocephalus. Bony calvarium intact. 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 New mild/moderate mucosal thickening of remaining paranasal sinuses bilaterally. Mastoid air cells are clear. Impression: 1. 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 2. Grossly stable right ethmoid sinus mass/polyp. 3. New pansinusitis.
--- NOTE | 2021-09-22 12:03 | XRAY ---
Indication: Fever. Comparison: December 30, 2020. Portable chest remains clear. Heart not enlarged. Bony thorax intact again with osteopenia and degenerative changes. No new/acute findings.
[2021-09-22 12:15] LABS: INFLUENZA A NEGATIVE (NEGATIVE); INFLUENZA B NEGATIVE (NEGATIVE)
[2021-09-22 12:16] LABS: INFLUENZA A NEGATIVE (NEGATIVE); INFLUENZA B NEGATIVE (NEGATIVE); RESPIRATORY SYNCTIAL VIRUS NEGATIVE (Negative); SARS-CoV-2 Xpert Express NEGATIVE (NEGATIVE)
[2021-09-22 12:56] LABS: ANION GAP 13.9 MEQ/L (5-15); BILIRUBIN,TOTAL 1.1 mg/dL (0.2-1.3); Calcium 10.3 mg/dL (8.4-10.2); Creatinine 1 1.32 mg/dL (0.66-1.25); EST GLOMERULAR FILTRATION RATE 54.5 ML/MIN; Potassium 3.9 mmol/L (3.5-5.1)
[2021-09-22] MEDS ORDERED: PIPERACILLIN/TAZOBACTAM 3.375 GM in Sodium Chloride 100ML MINI-BAG PLUS 100 ML IV ONE (13:14)
[2021-09-22] MEDS ORDERED: PIPERACILLIN/TAZOBACTAM IV ONE (13:21)
[2021-09-22] MEDS ORDERED: Sodium Chloride 100ML MINI-BAG PLUS 100 ML IV ONE (13:21)
[2021-09-22] MEDS ORDERED: Zofran 4 MG/2 ML VIAL IV PRN (14:01)
[2021-09-22] MEDS: TYLENOL 325 MG PO PRN ×2 (16:35→21:19)
[2021-09-22] MEDS: PIPERACILLIN/TAZOBACTAM 3.375 GM in Sodium Chloride 100ML MINI-BAG PLUS 100 ML IV SCH ×2 (17:33→23:43)
[2021-09-22] MEDS ORDERED: Glucophage XR 500 MG PO ONE (18:00)
[2021-09-22] MEDS: Sodium Chloride 0.9% 1000 ML 1,000 ML IV SCH (21:30)
[2021-09-22] MEDS ORDERED: Ambien 5 MG Tablet PO PRN (21:44)
[2021-09-22] MEDS ORDERED: Zocor 10MG PO ONE (22:00)
[2021-09-22] MEDS ORDERED: Klor Con 10 MEQ PO ONE (22:00)
[2021-09-22] MEDS ORDERED: Coreg 6.25 MG PO ONE (22:00)
[2021-09-22] MEDS ORDERED: Protonix 40MG Tablet PO ONE (22:00)
[2021-09-23 05:03] LABS: Absolute Neutrophil Ct (ANC) 7.54 (1.4-6.9); Basophil (Absolute #) 0.02 (0-0.4); Eosinophil % 1.7 % (0.00-5.0); Eosinophil (Absolute #) 0.18 (0-0.5); Hematocrit 38.8 % (42-50); Hemoglobin 12.9 gm/dl (12.5-18.0); Lymphocyte (Absolute #) 1.52 (1.0-4.6); Lymphocytes % 14.7 % (24.0-44.0); Mean Corpuscular Hemoglobin 32.9 pg (26-32); Mean Corpuscular Hgb Concent. 33.2 g/dl (32-36); Mean Platelet Volume 10.8 fl (7.5-11.0); Monocyte (Absolute #) 1.06 (0.0-1.3); Monocytes % 10.3 % (0.0-12.0); Neutrophil % 73.1 % (36.0-66.0); Platelet Count 168 K/mm3 (150-450); Red Blood Count 3.92 M/mm3 (4.1-5.6); Red Cell Distribution Width 13.6 % (11.5-14.0); White Blood Count 10.3 K/mm3 (4.0-10.5)
[2021-09-23 05:25] LABS: ALBUMIN 3.2 g/dL (3.5-5.0); ANION GAP 11.6 MEQ/L (5-15); BILIRUBIN,TOTAL 1.1 mg/dL (0.2-1.3); Calcium 9.4 mg/dL (8.4-10.2); Creatinine 1 1.52 mg/dL (0.66-1.25); EST GLOMERULAR FILTRATION RATE 46.3 ML/MIN; Potassium 3.9 mmol/L (3.5-5.1); Total Protein 5.9 g/dL (6.3-8.2)
[2021-09-23] MEDS: PIPERACILLIN/TAZOBACTAM 3.375 GM in Sodium Chloride 100ML MINI-BAG PLUS 100 ML IV SCH ×2 (06:04→12:11)
[2021-09-23] MEDS ORDERED: TYLENOL EXTRA STRENGTH 500 MG PO PRN (07:05)
[2021-09-23] MEDS ORDERED: Glucophage XR 500 MG PO SCH (08:00)
[2021-09-23] MEDS ORDERED: Amaryl 2 MG PO SCH (08:00)
[2021-09-23] MEDS: Sodium Chloride 0.9% 1000 ML 1,000 ML IV SCH (08:26)
[2021-09-23] MEDS ORDERED: Zestril 20 MG*** 20 MG, hydroDIURIL 25 MG*** 25 MG PO SCH ×2 (10:00)
[2021-09-23] MEDS ORDERED: NON-FORMULARY ITEM (Metformin Hcl [Metformin Er Osmotic] 1,000 MG Tab.Er.24) PO SCH (10:00)
[2021-09-23] MEDS ORDERED: VIT E PO SCH (10:00)
[2021-09-23] MEDS ORDERED: Coreg 6.25 MG PO SCH (10:00)
[2021-09-23] MEDS ORDERED: Flomax 0.4 MG PO SCH (10:00)
[2021-09-23] MEDS ORDERED: B12 PO SCH (10:00)
[2021-09-23] MEDS ORDERED: [UNRECOGNIZED DRUG - OTHER] PO SCH (10:00)
[2021-09-23] MEDS ORDERED: Ditropan XL 5 MG PO SCH (10:00)
[2021-09-23] MEDS ORDERED: FOLATE 1 MG PO SCH (10:00)
[2021-09-23] MEDS ORDERED: ECOTRIN 81 MG PO SCH (10:00)
[2021-09-23] MEDS ORDERED: FOLTX (FOLBIC) PO SCH (10:00)
[2021-09-23] MEDS ORDERED: FEOSOL 325 MG PO SCH (10:00)
[2021-09-23] MEDS ORDERED: COQ10 PO SCH (10:00)
[2021-09-23] MEDS ORDERED: B6 PO SCH (10:00)
[2021-09-23] MEDS ORDERED: VITAMIN E 100 UNIT PO SCH (10:00)
[2021-09-23] MEDS ORDERED: PLAVIX 75 MG Tablet PO SCH (10:00)
[2021-09-23] MEDS ORDERED: Vitamin E 400 UNIT SOFTGEL PO SCH (10:00)
[2021-09-23] MEDS ORDERED: Klor Con 10 MEQ PO SCH (10:00)
[2021-09-23] MEDS ORDERED: NON-FORMULARY ITEM (Lisinopril/Hydrochlorothiazide [Lisinopril-Hctz 20-25 Mg Tab] 1 EACH T PO SCH (10:00)
[2021-09-23] MEDS ORDERED: Imdur 30 MG PO SCH (10:00)
[2021-09-23] MEDS ORDERED: NON-FORMULARY ITEM (Omeprazole [Omeprazole] 40 MG Capsule.Dr) PO SCH (10:00)
[2021-09-23] MEDS ORDERED: ALA PO SCH (10:00)
[2021-09-23] MEDS ORDERED: B1 PO SCH (10:00)
[2021-09-23] MEDS ORDERED: FOLIC ACID 0.8 MG PO SCH (10:00)
[2021-09-23] MEDS ORDERED: Coreg 3.125 MG PO SCH (10:00)
[2021-09-23] MEDS ORDERED: Protonix 40MG Tablet PO SCH (10:00)
--- NOTE | 2021-09-23 12:44 | PCM.HP ---
History of Present Illness - Chief Complaint Chief Complaint: CONFUSION for 2-3 days History of Present Illness: is a 86 year old male.has a history of hypertension, TIAs, coronary disease, diabetes, elevated cholesterol and gastroesophageal reflux disease on Plavix and presents to the emergency department for confusion and fever. Patient lives at home with his sister. She tried to wake him up this morning and he was very sleepy. Eventually he did wake up but was confused. He felt warm and presented to the emergency department with a fever this low-grade of 99 F. He has had this type of issue in the past when he has had a urinary tract infection. He denies chest pain. He denies shortness of breath. He has no abdominal pain. He has had no vomiting or diarrhea. - Review of Systems Constitutional: Lethargy, Weakness, No Fever, No Chills Eyes: No Symptoms Ears, Nose, & Throat: No Symptoms Respiratory: No Cough, No Short Of Breath Cardiac: No Chest Pain, No Edema, No Syncope Abdominal/Gastrointestinal: No Abdominal Pain, No Nausea, No Vomiting, No Diarrhea Genitourinary Symptoms: No Dysuria Musculoskeletal: No Back Pain, No Neck Pain Skin: No Rash Neurological: Lethargy, Other (confusion), No Dizziness, No Focal Weakness, No Sensory Changes Psychological: No Symptoms Endocrine: No Symptoms Hematologic/Lymphatic: No Symptoms Immunological/Allergic: No Symptoms Medications & Allergies Home Medications: Home Medication List Aspirin [Aspir 81] 81 mg PO DAILY 07/23/12 [History Confirmed 09/22/21] Isosorbide Mononitrate 30 mg [Imdur 30 MG] 30 mg PO DAILY 09/21/12 [History Confirmed 09/22/21] Potassium Chloride 10 Meq Tab* [Klor Con 10 MEQ] 10 meq PO BID 09/21/12 [History Confirmed 09/22/21] Pravastatin Sodium 10 mg [Pravachol 10 MG] 10 mg PO HS 09/21/12 [History Confirmed 09/22/21] Carvedilol 6.25 mg [Coreg 6.25 MG] 3.125 mg PO BID 02/04/15 [History Confirmed 09/22/21] Lisinopril/Hydrochlorothiazide [Lisinopril-Hctz 20-25 mg Tab] 20 - 25 mg PO DAILY 02/04/15 [History Confirmed 09/22/21] Tamsulosin HCl 0.4 mg [Flomax 0.4 MG] 0.4 mg PO DAILY 08/08/17 [History Confirmed 09/22/21] Acetaminophen 500 mg [Tylenol Extra Strength 500 mg] 500 - 1,000 mg PO BID PRN PRN 07/28/19 [History Confirmed 09/22/21] Folic Acid 1 mg PO DAILY 07/28/19 [History Confirmed 09/22/21] Oxybutynin Chloride [Oxybutynin Chloride ER] 5 mg PO DAILY 07/28/19 [History Confirmed 09/22/21] Clopidogrel Bisulfate 75 mg [PLAVIX 75 MG Tablet] 75 mg PO DAILY 04/21/20 [History Confirmed 09/22/21] Omeprazole 40 mg PO BID 04/22/20 [History Confirmed 09/22/21] Vitamin E 100 unit PO BID 08/01/20 [History Confirmed 09/22/21] Ferrous Sulfate [Iron] 1 ea PO DAILY 09/22/21 [History Confirmed 09/22/21] Glimepiride 2 mg [Amaryl 2 MG] 1 ea PO DAILY 09/22/21 [History Confirmed 09/22/21] Metformin HCl [Metformin ER Osmotic] 1 ea PO BID 09/22/21 [History Confirmed 09/22/21] Vit E/B1/B6/FA/B12/Ala/Coq10 [Folic-K Capsule] 1 ea PO BID 09/22/21 [History Confirmed 09/22/21] Allergies/Adverse Reactions: Allergies Allergy/AdvReac Type Severity Reaction Status Date / Time No Known Drug Allergies Allergy Verified 09/22/21 14:18 - Past Medical History Past Medical History: Yes Neurological History: TIA ENT History: No Pertinent History Cardiac History: Coronary Artery Disease, Hypertension Respiratory History: No Pertinent History Endocrine Medical History: Diabetes Type II Musculoskelatal History: Arthritis GI Medical History: GI Bleed History: No Pertinent History Pyscho-Social History: No Pertinent History Male Reproductive Disorders: No Pertinent History - Past Surgical History Past Surgical History: Yes Neuro Surgical History: No Pertinent History Cardiac History: Cardiac Catheterization, Cardiac Stent Respiratory Surgery: No Pertinent History GI Surgical History: Hernia Repair Genitourinary Surgical Hx: No Pertinent History Musculskeletal Surgical Hx: Orthopedic Surgery Male Surgical History: No Pertinent History Other Surgical History: Nasal surgery - Social History Smoking Status: Former smoker Exposure to second hand smoke: Yes Alcohol: None Drug Use: none Significant Family History: no pertinent family hx - Physical Exam Vital Signs: Vital Signs - 24 hr Temp Pulse Resp BP Pulse Ox 09/23/21 09:00 97.8 F 63 21 92/63 99 09/23/21 05:00 97.8 F 63 21 92/63 99 09/23/21 01:10 162/78 09/22/21 23:38 97.8 F 68 16 188/68 97 09/22/21 20:00 100.2 F 73 20 141/65 95 09/22/21 14:04 98.2 F 84 16 133/78 96 09/22/21 13:00 86 18 170/73 96 General Appearance: no apparent distress, alert Neurologic Exam: alert, sensation nml, disoriented, confusion, No motor deficits Eye Exam: PERRL/EOMI, eyes nml inspection Ears, Nose, Throat Exam: normal ENT inspection, TMs normal, pharynx normal, moist mucous membranes Neck Exam: normal inspection, non-tender, supple, full range of motion Respiratory Exam: normal breath sounds, lungs clear, No respiratory distress Cardiovascular Exam: regular rate/rhythm, normal heart sounds, normal peripheral pulses Gastrointestinal/Abdomen Exam: soft, normal bowel sounds, No tenderness, No mass Back Exam: normal inspection, normal range of motion, No CVA tenderness, No vertebral tenderness Extremity Exam: normal inspection, normal range of motion, pelvis stable Skin Exam: normal color, warm, dry, No rash Lymphatic Exam: No adenopathy Results - Labs Lab/Micro Results: Lab Results-Last 24 Hours 09/22/21 09/22/21 09/22/21 Range/Units 05:00 10:45 10:45 WBC (4.0-10.5) K/mm3 RBC (4.1-5.6) M/mm3 Hgb (12.5-18.0) gm/dl Hct (42-50) % MCV (78-100) fl MCH (26-32) pg MCHC (32-36) g/dl RDW (11.5-14.0) % Plt Count (150-450) K/mm3 MPV (7.5-11.0) fl Gran % (36.0-66.0) % Eos # (Auto) (0-0.5) Absolute Lymphs (auto) (1.0-4.6) Absolute Monos (auto) (0.0-1.3) Lymphocytes % (24.0-44.0) % Monocytes % (0.0-12.0) % Eosinophils % (0.00-5.0) % Basophils % (0.0-0.4) % Absolute Granulocytes (1.4-6.9) Basophils # (0-0.4) Sodium 136 L (137-145) mmol/L Potassium 3.9 (3.5-5.1) mmol/L Chloride 103 (98-107) mmol/L Carbon Dioxide 23 (22-30) mmol/L Anion Gap 13.9 (5-15) MEQ/L BUN 24 H (9-20) mg/dL Creatinine 1.32 H (0.66-1.25) mg/dL Estimated GFR 54.5 ML/MIN Glucose 211 H (74-106) mg/dL POC Glucometer (74 to 106) mg/dL Hemoglobin A1c 7.87 H (4.5-6.0) % Calcium 10.3 H (8.4-10.2) mg/dL Total Bilirubin 1.10 (0.2-1.3) mg/dL AST 20 (17-59) U/L ALT 21 (0-50) U/L Alkaline Phosphatase 71 (38-126) U/L Serum Total Protein 7.0 (6.3-8.2) g/dL Albumin 4.0 (3.5-5.0) g/dL Monoscreen NEGATIVE (Negative) 09/22/21 09/22/21 09/22/21 Range/Units 12:56 16:20 20:50 WBC (4.0-10.5) K/mm3 RBC (4.1-5.6) M/mm3 Hgb (12.5-18.0) gm/dl Hct (42-50) % MCV (78-100) fl MCH (26-32) pg MCHC (32-36) g/dl RDW (11.5-14.0) % Plt Count (150-450) K/mm3 MPV (7.5-11.0) fl Gran % (36.0-66.0) % Eos # (Auto) (0-0.5) Absolute Lymphs (auto) (1.0-4.6) Absolute Monos (auto) (0.0-1.3) Lymphocytes % (24.0-44.0) % Monocytes % (0.0-12.0) % Eosinophils % (0.00-5.0) % Basophils % (0.0-0.4) % Absolute Granulocytes (1.4-6.9) Basophils # (0-0.4) Sodium (137-145) mmol/L Potassium (3.5-5.1) mmol/L Chloride (98-107) mmol/L Carbon Dioxide (22-30) mmol/L Anion Gap (5-15) MEQ/L BUN (9-20) mg/dL Creatinine (0.66-1.25) mg/dL Estimated GFR ML/MIN Glucose (74-106) mg/dL POC Glucometer 203 H 275 H 256 H (74 to 106) mg/dL Hemoglobin A1c (4.5-6.0) % Calcium (8.4-10.2) mg/dL Total Bilirubin (0.2-1.3) mg/dL AST (17-59) U/L ALT (0-50) U/L Alkaline Phosphatase (38-126) U/L Serum Total Protein (6.3-8.2) g/dL Albumin (3.5-5.0) g/dL Monoscreen (Negative) 09/23/21 09/23/21 09/23/21 Range/Units 04:15 04:15 07:11 WBC 10.3 (4.0-10.5) K/mm3 RBC 3.92 L (4.1-5.6) M/mm3 Hgb 12.9 (12.5-18.0) gm/dl Hct 38.8 L (42-50) % MCV 99.0 (78-100) fl MCH 32.9 H (26-32) pg MCHC 33.2 (32-36) g/dl RDW 13.6 (11.5-14.0) % Plt Count 168 (150-450) K/mm3 MPV 10.8 (7.5-11.0) fl Gran % 73.1 H (36.0-66.0) % Eos # (Auto) 0.18 (0-0.5) Absolute Lymphs (auto) 1.52 (1.0-4.6) Absolute Monos (auto) 1.06 (0.0-1.3) Lymphocytes % 14.7 L (24.0-44.0) % Monocytes % 10.3 (0.0-12.0) % Eosinophils % 1.7 (0.00-5.0) % Basophils % 0.2 (0.0-0.4) % Absolute Granulocytes 7.54 H (1.4-6.9) Basophils # 0.02 (0-0.4) Sodium 137 (137-145) mmol/L Potassium 3.9 (3.5-5.1) mmol/L Chloride 106 (98-107) mmol/L Carbon Dioxide 24 (22-30) mmol/L Anion Gap 11.6 (5-15) MEQ/L BUN 26 H (9-20) mg/dL Creatinine 1.52 H (0.66-1.25) mg/dL Estimated GFR 46.3 ML/MIN Glucose 159 H (74-106) mg/dL POC Glucometer 171 H (74 to 106) mg/dL Hemoglobin A1c (4.5-6.0) % Calcium 9.4 (8.4-10.2) mg/dL Total Bilirubin 1.10 (0.2-1.3) mg/dL AST 22 (17-59) U/L ALT 20 (0-50) U/L Alkaline Phosphatase 54 (38-126) U/L Serum Total Protein 5.9 L (6.3-8.2) g/dL Albumin 3.2 L (3.5-5.0) g/dL Monoscreen (Negative) 09/23/21 Range/Units 12:06 WBC (4.0-10.5) K/mm3 RBC (4.1-5.6) M/mm3 Hgb (12.5-18.0) gm/dl Hct (42-50) % MCV (78-100) fl MCH (26-32) pg MCHC (32-36) g/dl RDW (11.5-14.0) % Plt Count (150-450) K/mm3 MPV (7.5-11.0) fl Gran % (36.0-66.0) % Eos # (Auto) (0-0.5) Absolute Lymphs (auto) (1.0-4.6) Absolute Monos (auto) (0.0-1.3) Lymphocytes % (24.0-44.0) % Monocytes % (0.0-12.0) % Eosinophils % (0.00-5.0) % Basophils % (0.0-0.4) % Absolute Granulocytes (1.4-6.9) Basophils # (0-0.4) Sodium (137-145) mmol/L Potassium (3.5-5.1) mmol/L Chloride (98-107) mmol/L Carbon Dioxide (22-30) mmol/L Anion Gap (5-15) MEQ/L BUN (9-20) mg/dL Creatinine (0.66-1.25) mg/dL Estimated GFR ML/MIN Glucose (74-106) mg/dL POC Glucometer 283 H (74 to 106) mg/dL Hemoglobin A1c (4.5-6.0) % Calcium (8.4-10.2) mg/dL Total Bilirubin (0.2-1.3) mg/dL AST (17-59) U/L ALT (0-50) U/L Alkaline Phosphatase (38-126) U/L Serum Total Protein (6.3-8.2) g/dL Albumin (3.5-5.0) g/dL Monoscreen (Negative) Accuchecks Date 09/23/21 Date 09/22/21 Date 09/22/21 Time 07:10 Time 16:28 Time 12:57 - Radiology Impressions Radiology Exams & Impressions: Radiology Procedures Category Date Time Status CHEST 1 VIEW (PORTABLE) Stat Exams 09/22/21 10:49 Completed HEAD WITHOUT CONTRAST [CT] Stat Exams 09/22/21 10:50 Completed Assessment/Plan (1) Confusion Current Visit: Yes Status: Acute Assessment & Plan: Chief Complaint Diagnosis CONFUSION Allergies Allergy/AdvReac Type Severity Reaction Status Date / Time No Known Drug Allergies Allergy Verified 09/22/21 14:18 Vital Signs (Last 24 hours) Temp Pulse Resp BP Pulse Ox 09/23/21 09:00 97.8 F 63 21 63 99 09/23/21 05:00 97.8 F 63 21 99 09/23/21 01:10 162/78 09/22/21 23:38 97.8 F 68 16 188/68 97 09/22/21 20:00 100.2 F 73 20 141/65 95 09/22/21 14:04 98.2 F 84 16 133/78 96 09/22/21 13:00 86 18 170/73 96 Home Medications Medication Instructions Recorded Confirmed Last Taken Type Ferrous Sulfate [Iron] 1 ea PO DAILY 09/22/21 09/22/21 Unknown History Glimepiride 2 mg [Amaryl 2 1 ea PO DAILY 09/22/21 09/22/21 Unknown History MG] Metformin HCl [Metformin ER 1 ea PO BID 09/22/21 09/22/21 Unknown History Osmotic] Vit E/B1/B6/FA/B12/Ala/Coq10 1 ea PO BID 09/22/21 09/22/21 Unknown History [Folic-K Capsule] Current Medications Generic Name Dose Route Start Last Admin Trade Name Freq PRN Reason Stop Dose Admin Acetaminophen 650 mg 09/22/21 14:01 09/22/21 21:19 Acetaminophen 325 Mg Tablet PO 10/22/21 14:00 650 mg Q4H PRN PRN Administration PAIN, FEVER, HEADACHE Acetaminophen 500 - 1,000 mg 09/23/21 07:05 Acetaminophen 500 Mg Tablet PO 10/23/21 07:04 BID PRN PRN PAIN AND/OR FEVER Aspirin 81 mg 09/23/21 10:00 09/23/21 09:33 Aspirin 81 Mg Tablet.Ec PO 10/23/21 09:59 81 mg DAILY ART Administration Carvedilol 3.125 mg 09/23/21 10:00 09/23/21 09:33 Carvedilol 3.125 Mg Tablet PO 10/23/21 09:59 3.125 mg BID ART Administration Clopidogrel Bisulfate 75 mg 09/23/21 10:00 09/23/21 09:31 Clopidogrel Bisulfate 75 Mg Tablet PO 10/23/21 09:59 75 mg DAILY ART Administration Lisinopril 20 mg/ 0 mg 09/23/21 10:00 09/23/21 09:31 Hydrochlorothiazide 25 mg PO 10/23/21 09:59 20 mg DAILY ART Administration Ferrous Sulfate 325 mg 09/23/21 10:00 09/23/21 09:31 Ferrous Sulfate 325 Mg Tablet PO 10/23/21 09:59 325 mg DAILY ART Administration Folic Acid 1 mg 09/23/21 10:00 09/23/21 09:32 Folic Acid 1 Mg Tablet PO 10/23/21 09:59 1 mg DAILY ART Administration Folic Acid 1 tab 09/23/21 10:00 09/23/21 09:33 Folic Acid/Vitamin B Comp W-C 1 Tab Tab PO 10/23/21 09:59 1 tab BID ART Administration Glimepiride 2 mg 09/23/21 08:00 09/23/21 09:32 Glimepiride 2 Mg Tablet PO 10/23/21 07:59 2 mg DAILY@0800 ART Administration Sodium Chloride 1,000 mls @ 50 mls/hr 09/22/21 14:01 09/23/21 08:26 Sodium Chloride 0.9% 1000 Ml IV 10/22/21 14:00 50 mls/hr .Q20H ART Administration Piperacillin Sod/Tazobactam 100 mls @ 200 mls/hr 09/22/21 18:00 09/23/21 12:11 Sod 3.375 gm/ Sodium Chloride IV 09/25/21 17:59 200 mls/hr Q6HT ART Administration Isosorbide Mononitrate 30 mg 09/23/21 10:00 09/23/21 09:31 Isosorbide Mononitrate 30 Mg Tab PO 10/23/21 09:59 30 mg DAILY ART Administration Metformin HCl 1,000 mg 09/23/21 08:00 09/23/21 09:32 Metformin Hcl Er 500 Mg Tab PO 10/23/21 07:59 1,000 mg BIDWM ART Administration Ondansetron HCl 4 mg 09/22/21 14:01 Ondansetron Hcl 4 Mg/2 Ml Vial IV 10/22/21 14:00 Q6H PRN PRN NAUSEA/VOMITING Oxybutynin Chloride 5 mg 09/23/21 10:00 09/23/21 09:31 Oxybutynin Chloride Xl 5 Mg Tab PO 10/23/21 09:59 5 mg DAILY ART Administration Pantoprazole Sodium 40 mg 09/23/21 10:00 09/23/21 09:33 Protonix (Pantoprazole) 40 Mg Tablet PO 10/23/21 09:59 40 mg BID ART Administration Potassium Chloride 10 meq 09/23/21 10:00 09/23/21 09:33 Potassium Chloride 10 Meq Tablet PO 10/23/21 09:59 10 meq BID ART Administration Simvastatin 10 mg 09/23/21 22:00 Simvastatin 10 Mg Tablet PO 10/23/21 21:59 HS ART Tamsulosin HCl 0.4 mg 09/23/21 10:00 09/23/21 09:33 Tamsulosin Hcl 0.4 Mg Cap PO 10/23/21 09:59 0.4 mg DAILY ART Administration Vitamin E 400 u 09/23/21 10:00 09/23/21 09:34 Vitamin E 400 Iu Softgel PO 10/23/21 09:59 400 u DAILY ART Administration Zolpidem Tartrate 5 mg 09/22/21 21:44 09/22/21 22:04 Zolpidem Tartrate 5 Mg Tab PO 10/22/21 21:43 5 mg HS PRN PRN Administration INSOMNIA Discontinued Medications Generic Name Dose Route Start Last Admin Trade Name Billyq PRN Reason Stop Dose Admin Carvedilol 6.25 mg 09/22/21 22:00 09/22/21 21:21 Carvedilol 6.25 Mg Tablet PO 09/22/21 22:01 6.25 mg ONCE ONE Administration Sodium Chloride 1,000 mls @ 100 mls/hr 09/22/21 11:00 09/22/21 11:08 Sodium Chloride 0.9% 1000 Ml IV 10/22/21 10:59 100 mls/hr .Q10H ART Administration Piperacillin Sod/Tazobactam 100 mls @ 200 mls/hr 09/22/21 13:14 09/22/21 13:25 Sod 3.375 gm/ Sodium Chloride IV 09/22/21 13:43 200 mls/hr STAT ONE Administration Sodium Chloride Confirm 09/22/21 13:21 Sodium Chloride 100ml Mini-Bag Plus Administered 09/22/21 13:22 Dose 100 mls @ ud IV .STK-MED ONE Sodium Chloride Confirm 09/22/21 11:05 Sodium Chloride 0.9% 1000 Ml Administered 09/22/21 11:06 Dose 1,000 mls @ ud .ROUTE .STK-MED ONE Metformin HCl 1,000 mg 09/22/21 18:00 09/22/21 17:52 Metformin Hcl Er 500 Mg Tab PO 09/22/21 18:01 1,000 mg EVENING MEAL ONE Administration Pantoprazole Sodium 40 mg 09/22/21 22:00 09/22/21 21:21 Protonix (Pantoprazole) 40 Mg Tablet PO 09/22/21 22:01 40 mg ONCE ONE Administration Piperacillin Sod/Tazobactam Sod Confirm 09/22/21 13:21 Piperacillin/Tazobactam Sodium 3.375 Gm Vial Administered 09/22/21 13:22 Dose 3.375 gm IV .STK-MED ONE Potassium Chloride 10 meq 09/22/21 22:00 09/22/21 21:20 Potassium Chloride 10 Meq Tablet PO 09/22/21 22:01 10 meq ONCE ONE Administration Simvastatin 10 mg 09/22/21 22:00 09/22/21 21:20 Simvastatin 10 Mg Tablet PO 09/22/21 22:01 10 mg ONCE ONE Administration Intake & Output (Last 24 hours) 09/21/21 09/22/21 09/23/21 09/24/21 11:59 11:59 11:59 11:59 Intake Total 2942 Output Total 200 Balance 2742 Weight 77.6 kg 75.9 kg Microbiology Results (Last 24 hours) 09/22/21 11:10 Blood Blood Culture Gram Stain - Pending 09/22/21 11:10 Blood Blood Culture - Pending 09/22/21 11:03 Blood Blood Culture Gram Stain - Pending 09/22/21 11:03 Blood Blood Culture - Pending Laboratory Results (Last 24 hours) 09/23/21 09/23/21 09/23/21 12:06 07:11 04:15 WBC RBC Hgb Hct MCV MCH MCHC RDW Plt Count MPV Gran % Eos # (Auto) Absolute Lymphs (auto) Absolute Monos (auto) Lymphocytes % Monocytes % Eosinophils % Basophils % Absolute Granulocytes Basophils # Sodium 137 Potassium 3.9 Chloride 106 Carbon Dioxide 24 Anion Gap 11.6 BUN 26 H Creatinine 1.52 H Estimated GFR 46.3 Glucose 159 H POC Glucometer 283 H 171 H Hemoglobin A1c Calcium 9.4 Total Bilirubin 1.10 AST 22 ALT 20 Alkaline Phosphatase 54 Serum Total Protein 5.9 L Albumin 3.2 L Monoscreen 09/23/21 09/22/21 09/22/21 04:15 20:50 16:20 WBC 10.3 RBC 3.92 L Hgb 12.9 Hct 38.8 L MCV 99.0 MCH 32.9 H MCHC 33.2 RDW 13.6 Plt Count 168 MPV 10.8 Gran % 73.1 H Eos # (Auto) 0.18 Absolute Lymphs (auto) 1.52 Absolute Monos (auto) 1.06 Lymphocytes % 14.7 L Monocytes % 10.3 Eosinophils % 1.7 Basophils % 0.2 Absolute Granulocytes 7.54 H Basophils # 0.02 Sodium Potassium Chloride Carbon Dioxide Anion Gap BUN Creatinine Estimated GFR Glucose POC Glucometer 256 H 275 H Hemoglobin A1c Calcium Total Bilirubin AST ALT Alkaline Phosphatase Serum Total Protein Albumin Monoscreen 09/22/21 09/22/21 09/22/21 12:56 10:45 10:45 WBC RBC Hgb Hct MCV MCH MCHC RDW Plt Count MPV Gran % Eos # (Auto) Absolute Lymphs (auto) Absolute Monos (auto) Lymphocytes % Monocytes % Eosinophils % Basophils % Absolute Granulocytes Basophils # Sodium 136 L Potassium 3.9 Chloride 103 Carbon Dioxide 23 Anion Gap 13.9 BUN 24 H Creatinine 1.32 H Estimated GFR 54.5 Glucose 211 H POC Glucometer 203 H Hemoglobin A1c Calcium 10.3 H Total Bilirubin 1.10 AST 20 ALT 21 Alkaline Phosphatase 71 Serum Total Protein 7.0 Albumin 4.0 Monoscreen NEGATIVE 09/22/21 05:00 WBC RBC Hgb Hct MCV MCH MCHC RDW Plt Count MPV Gran % Eos # (Auto) Absolute Lymphs (auto) Absolute Monos (auto) Lymphocytes % Monocytes % Eosinophils % Basophils % Absolute Granulocytes Basophils # Sodium Potassium Chloride Carbon Dioxide Anion Gap BUN Creatinine Estimated GFR Glucose POC Glucometer Hemoglobin A1c 7.87 H Calcium Total Bilirubin AST ALT Alkaline Phosphatase Serum Total Protein Albumin Monoscreen Orders (Last 24 hours) Category Date Time Status Code Status Order ROUTINE Care 09/22/21 14:01 Active Elevate HOB TOLERATED Care 09/22/21 14:01 Active POCT Glucose Check ACHS Care 09/22/21 13:59 Active POCT Glucose Check STAT Care 09/22/21 12:[address] in Observation ROUTINE Care 09/22/21 14:01 Active Weight,Daily 0600 Care 09/22/21 14:01 Active Consistent Carbohydrate Diet 2000 Calorie Diet 09/22/21 Dinner Active Discharge Planning,Consult Routine Discharge 09/22/21 14:01 Active CBC W DIFF AM.LAB Lab 09/23/21 04:15 Completed CMP AM.LAB Lab 09/23/21 04:15 Completed Lactic Acid Stat Lab 09/22/21 13:04 Stop Req POCT GLUCOSE Stat Lab 09/22/21 12:56 Completed POCT GLUCOSE Stat Lab 09/22/21 16:20 Completed POCT GLUCOSE Stat Lab 09/22/21 20:50 Completed POCT GLUCOSE Stat Lab 09/23/21 07:11 Completed POCT GLUCOSE Stat Lab 09/23/21 12:06 Completed Acetaminophen 325 mg [Tylenol 325 mg] Med 09/22/21 14:01 Active 650 mg PO Q4H PRN PRN Acetaminophen 500 mg [Tylenol Extra Strength 500 mg* Med 09/23/21 07:05 Active ] 500 - 1,000 mg PO BID PRN PRN Aspirin EC 81 mg [Ecotrin 81 mg] Med 09/23/21 10:00 Active 81 mg PO DAILY Carvedilol 3.125 mg [Coreg 3.125 MG] Med 09/23/21 10:00 Active 3.125 mg PO BID Carvedilol 6.25 mg [Coreg 6.25 MG] Med 09/22/21 22:00 Discontinued 6.25 mg PO ONCE ONE Clopidogrel Bisulfate 75 mg [PLAVIX 75 MG Tablet] Med 09/23/21 10:00 Active 75 mg PO DAILY Ferrous Sulfate 325 mg [Feosol 325 mg] Med 09/23/21 10:00 Active 325 mg PO DAILY Folic Acid 1 mg [Folate 1 mg] Med 09/23/21 10:00 Active 1 mg PO DAILY Folic Acid/Vitamin B Comp W-C* [Foltx (Folbic)] Med 09/23/21 10:00 Active 1 tab PO BID Glimepiride 2 mg [Amaryl 2 MG] Med 09/23/21 08:00 Active 2 mg PO DAILY@0800 Isosorbide Mononitrate 30 mg [Imdur 30 MG] Med 09/23/21 10:00 Active 30 mg PO DAILY Lisinopril 20 mg [Zestril 20 MG] 20 mg Med 09/23/21 10:00 Active Hydrochlorothiazide 25 mg [hydroDIURIL 25 MG] 25 mg PO DAILY Metformin HCl Xr 500 mg [Glucophage XR 500 MG] Med 09/23/21 08:00 Active 1,000 mg PO BIDWM Metformin HCl Xr 500 mg [Glucophage XR 500 MG] Med 09/22/21 18:00 Discontinued 1,000 mg PO EVENING MEAL ONE NaCl 0.9% 100 ml Mini-Bag Plus [Sodium Chloride 100ML Med 09/22/21 13:21 Discontinued MINI-BAG PLUS] 100 ml IV UD NaCl 0.9% 1000 ml [Sodium Chloride 0.9% 1000 ML] 1,000 Med 09/22/21 14:01 Active ml IV 50 mls/hr Ondansetron HCl 4 mg/2 ml [Zofran 4 MG/2 ML VIAL] Med 09/22/21 14:01 Active 4 mg IV Q6H PRN PRN Oxybutynin Chloride Xl 5 mg [Ditropan XL 5 MG] Med 09/23/21 10:00 Active 5 mg PO DAILY PANTOPRAZOLE 40 mg Tablet [Protonix 40MG Tablet] Med 09/23/21 10:00 Active 40 mg PO BID PANTOPRAZOLE 40 mg Tablet [Protonix 40MG Tablet] Med 09/22/21 22:00 Discontinued 40 mg PO ONCE ONE Piperacillin/Tazobactam 3.375G [Piperacillin/Tazobactam Med 09/22/21 13:21 Discontinued ] 3.375 gm IV .STK-MED ONE Piperacillin/Tazobactam 3.375G [Piperacillin/Tazobactam Med 09/22/21 18:00 Active ] 3.375 gm NaCl 0.9% 100 ml Mini-Bag Plus [Sodium Chloride 100ML MINI-BAG PLUS] 100 ml IV Q6HT Piperacillin/Tazobactam 3.375G [Piperacillin/Tazobactam Med 09/22/21 13:14 Discontinued ] 3.375 gm NaCl 0.9% 100 ml Mini-Bag Plus [Sodium Chloride 100ML MINI-BAG PLUS] 100 ml IV STAT Potassium Chloride 10 Meq Tab* [Klor Con 10 MEQ] Med 09/23/21 10:00 Active 10 meq PO BID Potassium Chloride 10 Meq Tab* [Klor Con 10 MEQ] Med 09/22/21 22:00 Discontinued 10 meq PO ONCE ONE Simvastatin 10 mg [Zocor 10MG] Med 09/23/21 22:00 Active 10 mg PO HS Simvastatin 10 mg [Zocor 10MG] Med 09/22/21 22:00 Discontinued 10 mg PO ONCE ONE Tamsulosin HCl 0.4 mg [Flomax 0.4 MG] Med 09/23/21 10:00 Active 0.4 mg PO DAILY Vitamin E 400 Units [Vitamin E 400 UNIT SOFTGEL] Med 09/23/21 10:00 Active 400 u PO DAILY Zolpidem Tartrate 5 mg [Ambien 5 MG Tablet] Med 09/22/21 21:44 Active 5 mg PO HS PRN PRN Pulse Oximetry ROUTINE RT 09/22/21 14:01 Completed Patient Care Notes (Last 24 hours) 09/23/21 12:27 Case Management Note by CobyEkta SISTER UPDATED THAT WE ARE WAITING TO HEAR BACK FROM [facility] ON REFERRAL. SHE REPORTS FAMILY WOULD BE ABLE TO TAKE PATIENT TO [facility] ONCE THEY HAVE RECEIVED APPROVAL. Initialized on 09/23/21 12:27 - END OF NOTE 09/22/21 20:56 Nursing Note by Aleah Steele Pt blood sugar level 256, Pt states he does not take insulin at home. There is no sliding scale on the MAR and when questioning the pt about calling the Dr for a sliding scale, he refuses and states he would rather not have it. Pt takes metformin at dinner time. Pt is educated on the side effects of high blood glucose levels at this time. Initialized on 09/22/21 20:56 - END OF NOTE Code(s): R41.0 - DISORIENTATION, UNSPECIFIED (2) General weakness Current Visit: Yes Status: Acute Code(s): R53.1 - WEAKNESS (3) Hypertension Current Visit: No Status: Chronic Code(s): I10 - ESSENTIAL (PRIMARY) HYPERTENSION (4) Type 2 diabetes mellitus Current Visit: No Status: Chronic Qualifiers: (5) Acute on chronic renal failure Current Visit: No Status: Resolved Code(s): N17.9 - ACUTE KIDNEY FAILURE, UNSPECIFIED; N18.9 - CHRONIC KIDNEY DISEASE, UNSPECIFIED
[2021-09-23 14:55] VITALS: BP 145/70; PULSE 65; O2SAT 96
[2021-09-23] MEDS ORDERED: PRAVASTATIN SODIUM 10 MG PO SCH (22:00)
[2021-09-23] MEDS ORDERED: Zocor 10MG PO SCH (22:00)
== END 2021-09-23 14:15 ==
LOC: ED 10:24 → MED SURG 13:59
PROVIDERS: ADMIT General Practice; ATTEND General Practice
DX: R41.0 Disorientation, unspecified (principal); R53.1 Weakness; I25.10 Atherosclerotic heart disease of native coronary artery without angina pectoris; E11.22 Type 2 diabetes mellitus with diabetic chronic kidney disease; I12.9 Hypertensive chronic kidney disease with stage 1 through stage 4 chronic kidney disease, or unspecified chronic kidney disease; N18.9 Chronic kidney disease, unspecified; K21.9 Gastro-esophageal reflux disease without esophagitis; N17.9 Acute kidney failure, unspecified; R50.9 Fever, unspecified; Z79.01 Long term (current) use of anticoagulants; Z79.899 Other long term (current) drug therapy; Z20.828 Contact with and (suspected) exposure to other viral communicable diseases
CPT/HCPCS: 0241U; 36000; 36415; 70450; 71045; 80053; 81015; 82947; 83036; 83605; 85025; 86308; 87040; 87400; 87651; 93041; 94760; 96365; 99285; G0378; A9270-GY

== ENCOUNTER 2021-10-29 15:34 | Observation (INO) | payer MEDICARE ==
[2021-10-29] MEDS ORDERED: Sodium Chloride 0.9% 1000 ML 1,000 ML IV SCH (16:00)
[2021-10-29] MEDS ORDERED: Sodium Chloride 0.9% 1000 ML 1,000 ML ONE (16:01)
[2021-10-29 16:05] LABS: Absolute Neutrophil Ct (ANC) 4.77 (1.4-6.9); Basophil (Absolute #) 0.02 (0-0.4); Eosinophil % 2.2 % (0.00-5.0); Eosinophil (Absolute #) 0.16 (0-0.5); Hematocrit 43.9 % (42-50); Hemoglobin 14.7 gm/dl (12.5-18.0); Lymphocyte (Absolute #) 1.54 (1.0-4.6); Lymphocytes % 21.6 % (24.0-44.0); Mean Cell Volume 97.1 fl (78-100); Mean Corpuscular Hemoglobin 32.5 pg (26-32); Mean Corpuscular Hgb Concent. 33.5 g/dl (32-36); Mean Platelet Volume 11.1 fl (7.5-11.0); Monocyte (Absolute #) 0.65 (0.0-1.3); Monocytes % 9.1 % (0.0-12.0); Neutrophil % 66.8 % (36.0-66.0); Platelet Count 206 K/mm3 (150-450); Red Blood Count 4.52 M/mm3 (4.1-5.6); Red Cell Distribution Width 13.3 % (11.5-14.0); White Blood Count 7.1 K/mm3 (4.0-10.5)
[2021-10-29 16:21] LABS: PROTIME 11.8 SECONDS (9.4-12.5)
[2021-10-29 16:35] LABS: ANION GAP 15.4 MEQ/L (5-15); BILIRUBIN,TOTAL 1.2 mg/dL (0.2-1.3); Calcium 10.4 mg/dL (8.4-10.2); Creatinine 1 1.53 mg/dL (0.66-1.25); MAGNESIUM 1.9 mg/dL (1.6-2.3); Potassium 4.4 mmol/L (3.5-5.1); Total Protein 6.7 g/dL (6.3-8.2)
[2021-10-29 16:36] LABS: Erythrocyte Sedimentation Rate 11 mm/hr (0-15)
--- NOTE | 2021-10-29 17:56 | ERPHSYRPT ---
- History of Present Illness Time Seen by Provider: 10/29/21 16:55 Source: patient, EMS Exam Limitations: no limitations Patient Subjective Stated Complaint: pt he for near syncope episode today,denies any fall. he states was in NH 2 weeks ago for rehab Triage Nursing Assessment: pt alert and oreinted, arrived per ambulance, resp easy, skin w/d/p. abd soft , no edema Physician History: Mr. Yadav is an 86-year-old white male who had 2 syncopal or near syncopal episodes at home by the home health nurse. The report was initially that he had not lost consciousness but he says he does not remember everything. I believe he did have a least brief loss of consciousness. The patient was recently in the ER for dizziness and syncope and was released to a halfway from which she was discharged 2 to 3 days ago. Witnessed: other (Home health nurse) Prior Episodes: multiple episodes today Timing/Duration: today, improved Precipitating Factors: unknown Context: standing Loss of Consciousness: brief (seconds) Charcter of event(s): collapsed Allergies/Adverse Reactions: No Known Drug Allergies Allergy (Verified 10/29/21 15:42) Home Medications: Aspirin [Aspir 81] 81 mg PO DAILY 07/23/12 [History] Isosorbide Mononitrate 30 mg [Imdur 30 MG] 30 mg PO DAILY 09/21/12 [History ] Potassium Chloride 10 Meq Tab* [Klor Con 10 MEQ] 10 meq PO BID 09/21/12 [History] Pravastatin Sodium 10 mg [Pravachol 10 MG] 10 mg PO HS 09/21/12 [History] Carvedilol 6.25 mg [Coreg 6.25 MG] 3.125 mg PO BID 02/04/15 [History] Lisinopril/Hydrochlorothiazide [Lisinopril-Hctz 20-25 mg Tab] 20 - 25 mg PO DAILY 02/04/15 [History] Tamsulosin HCl 0.4 mg [Flomax 0.4 MG] 0.4 mg PO DAILY 08/08/17 [History] Acetaminophen 500 mg [Tylenol Extra Strength 500 mg] 500 - 1,000 mg PO BID PRN PRN 07/28/19 [History] Folic Acid 1 mg PO DAILY 07/28/19 [History] Oxybutynin Chloride [Oxybutynin Chloride ER] 5 mg PO DAILY 07/28/19 [History] Clopidogrel Bisulfate 75 mg [PLAVIX 75 MG Tablet] 75 mg PO DAILY 04/21/20 [History] Omeprazole 40 mg PO BID 04/22/20 [History] Vitamin E 100 unit PO BID 08/01/20 [History] Ferrous Sulfate [Iron] 1 ea PO DAILY 09/22/21 [History] Glimepiride 2 mg [Amaryl 2 MG] 1 ea PO DAILY 09/22/21 [History] Metformin HCl [Metformin ER Osmotic] 1 ea PO BID 09/22/21 [History] Vit E/B1/B6/FA/B12/Ala/Coq10 [Folic-K Capsule] 1 ea PO BID 09/22/21 [History] Hx Tetanus, Diphtheria Vaccination/Date Given: No Hx Influenza Vaccination/Date Given: Yes Hx Pneumococcal Vaccination/Date Given: Yes Immunizations Up to Date: Yes Travel Risk - International Travel Have you traveled outside of the country in past 3 weeks: No - Coronavirus Screening Are you exhibiting any of the following symptoms?: No - Vaccine Status Have you recieved a Covid-19 vaccination: Yes 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 Dates if Unknown: 11/2020 - Past Medical History Pertinent Past Medical History: Yes Neurological History: TIA ENT History: No Pertinent History Cardiac History: Coronary Artery Disease, Hypertension Respiratory History: No Pertinent History Endocrine Medical History: Diabetes Type II Musculoskeletal History: Arthritis GI Medical History: GI Bleed History: No Pertinent History Psycho-Social History: No Pertinent History Male Reproductive Disorders: No Pertinent History - Past Surgical History Past Surgical History: Yes Neuro Surgical History: No Pertinent History Cardiac: Cardiac Catheterization, Cardiac Stent Respiratory: No Pertinent History Gastrointestinal: Hernia Repair Genitourinary: No Pertinent History Musculoskeletal: Orthopedic Surgery Male Surgical History: No Pertinent History Other Surgical History: Nasal surgery - Social History Smoking Status: Former smoker Exposure to second hand smoke: Yes Drug Use: none Patient Lives Alone: No Significant Family History: no pertinent family hx - Review of Systems Constitutional: No Fever, No Chills Eyes: No Symptoms Ears, Nose, & Throat: No Symptoms Respiratory: No Cough, No Dyspnea Cardiac: No Chest Pain, No Edema, No Syncope Abdominal/Gastrointestinal: No Abdominal Pain, No Nausea, No Vomiting, No Diarrhea Genitourinary Symptoms: No Dysuria Musculoskeletal: No Back Pain, No Neck Pain Skin: No Rash Neurological: Vertigo, No Dizziness, No Focal Weakness, No Sensory Changes Psychological: No Symptoms Endocrine: No Symptoms All Other Systems: Reviewed and Negative Physical Exam - Nursing Vital Signs Nursing Vital Signs: Initial Vital Signs Respiratory Rate 18 10/29/21 16:49 O2 Sat by Pulse Oximetry 96 10/29/21 16:49 Pain Scale Pain Intensity 4 - José Coma Scale Best Eye Response (José): (4) open spontaneously Best Verbal Response (José): (5) oriented Best Motor Response (José): (6) obeys commands [place] Total: 15 - Physical Exam Eye Exam: bilateral eye: normal inspection, PERRL, EOMI Ears, Nose, Throat Exam: normal ENT inspection, pharynx normal, moist mucous membranes Neck Exam: normal inspection, non-tender, supple, full range of motion Respiratory: normal breath sounds, lungs clear, No chest tenderness, No respiratory distress Cardiovascular: regular rate/rhythm, capillary refill <2 sec, No murmur, No pulse deficit Gastrointestinal: soft, No tenderness, No distention, No mass Back Exam: normal inspection, normal range of motion, No CVA tenderness, No vertebral tenderness Extremity Exam: normal inspection, normal range of motion, pelvis stable, No tenderness Mental Status: alert, oriented x 3, cooperative lifeline representatives Exam: normal speech, PERRL, No facial droop Coordination/Gait: normal finger to nose Motor/Sensory: no motor deficit, no sensory deficit, no pronator drift Skin Exam: normal color, warm, dry SpO2 Interpretation: normal SpO2: 94 O2 Delivery: Room Air - Course Nursing assessment & vital signs reviewed: Yes EKG Interpreted by Me: RATE (63), Sinus Rhythm, Left Bundle Branch Block (Incomplete), Non-specific ST Changes, Other (Poor R wave progression) - Radiology Exams Chest X-ray Interpretation: Interpreted by me, Negative (Except for fibrotic changes) Ordered Tests: Active Orders 24 hr Category Date Time Status Orthostatic Vital Signs STAT Care 10/29/21 15:52 Active CHEST 1 VIEW (PORTABLE) Stat Exams 10/29/21 15:50 Taken HEAD WITHOUT CONTRAST [CT] Stat Exams 10/29/21 15:53 Taken AMYLASE Stat Lab 10/29/21 16:03 Completed CBC W DIFF Stat Lab 10/29/21 16:03 Completed CMP Stat Lab 10/29/21 16:03 Completed Erythrocyte Sedimentation Rate Stat Lab 10/29/21 16:03 Completed LIPASE Stat Lab 10/29/21 16:03 Completed Lactic Acid Stat Lab 10/29/21 16:00 Completed MAGNESIUM Stat Lab 10/29/21 16:03 Completed NT PRO BNP Stat Lab 10/29/21 16:03 Completed PROTIME WITH INR Stat Lab 10/29/21 16:03 Completed TROPONIN Q3H Lab 10/29/21 16:03 Completed TROPONIN Q3H Lab 10/29/21 19:00 Ordered TROPONIN Q3H Lab 10/29/21 22:00 Ordered TROPONIN Q3H Lab 10/30/21 01:00 Ordered TROPONIN Q3H Lab 10/30/21 04:00 Ordered UA W/RFX CULTURE Stat Lab 10/29/21 17:32 Ordered Medication Summary Generic Name Dose Route Start Last Admin Trade Name Freq PRN Reason Stop Dose Admin Sodium Chloride 1,000 mls @ 100 mls/hr 10/29/21 16:00 10/29/21 16:02 Sodium Chloride 0.9% 1000 Ml IV 11/28/21 15:59 100 mls/hr .Q10H ART Administration Lab/Rad Data: Laboratory Result Diagrams 10/29/21 16:03 10/29/21 16:03 Laboratory Results 10/29/21 10/29/21 10/29/21 Range/Units 16:03 16:03 16:03 WBC (4.0-10.5) K/mm3 RBC (4.1-5.6) M/mm3 Hgb (12.5-18.0) gm/dl Hct (42-50) % MCV (78-100) fl MCH (26-32) pg MCHC (32-36) g/dl RDW (11.5-14.0) % Plt Count (150-450) K/mm3 MPV (7.5-11.0) fl Gran % (36.0-66.0) % Eos # (Auto) (0-0.5) Absolute Lymphs (auto) (1.0-4.6) Absolute Monos (auto) (0.0-1.3) Lymphocytes % (24.0-44.0) % Monocytes % (0.0-12.0) % Eosinophils % (0.00-5.0) % Basophils % (0.0-0.4) % Absolute Granulocytes (1.4-6.9) Basophils # (0-0.4) ESR (0-15) mm/hr PT 11.8 (9.4-12.5) SECONDS INR 1.00 (0.8-3.0) Sodium 137 (137-145) mmol/L Potassium 4.4 (3.5-5.1) mmol/L Chloride 103 (98-107) mmol/L Carbon Dioxide 23 (22-30) mmol/L Anion Gap 15.4 H (5-15) MEQ/L BUN 30 H (9-20) mg/dL Creatinine 1.53 H (0.66-1.25) mg/dL Estimated GFR 46.0 ML/MIN Glucose 211 H (74-106) mg/dL Lactic Acid (0.4-2.0) Calcium 10.4 H (8.4-10.2) mg/dL Magnesium 1.9 (1.6-2.3) mg/dL Total Bilirubin 1.20 (0.2-1.3) mg/dL AST 33 (17-59) U/L ALT 19 (0-50) U/L Alkaline Phosphatase 56 (38-126) U/L Troponin I 0.016 (0.000-0.034) ng/mL NT-Pro-B Natriuret Pep 119 (0-1800) pg/mL Serum Total Protein 6.7 (6.3-8.2) g/dL Albumin 4.0 (3.5-5.0) g/dL Amylase 52 (30-110) U/L Lipase 148 (23-300) U/L 10/29/21 10/29/21 Range/Units 16:03 16:00 WBC 7.1 (4.0-10.5) K/mm3 RBC 4.52 (4.1-5.6) M/mm3 Hgb 14.7 (12.5-18.0) gm/dl Hct 43.9 (42-50) % MCV 97.1 (78-100) fl MCH 32.5 H (26-32) pg MCHC 33.5 (32-36) g/dl RDW 13.3 (11.5-14.0) % Plt Count 206 (150-450) K/mm3 MPV 11.1 H (7.5-11.0) fl Gran % 66.8 H (36.0-66.0) % Eos # (Auto) 0.16 (0-0.5) Absolute Lymphs (auto) 1.54 (1.0-4.6) Absolute Monos (auto) 0.65 (0.0-1.3) Lymphocytes % 21.6 L (24.0-44.0) % Monocytes % 9.1 (0.0-12.0) % Eosinophils % 2.2 (0.00-5.0) % Basophils % 0.3 (0.0-0.4) % Absolute Granulocytes 4.77 (1.4-6.9) Basophils # 0.02 (0-0.4) ESR 11 (0-15) mm/hr PT (9.4-12.5) SECONDS INR (0.8-3.0) Sodium (137-145) mmol/L Potassium (3.5-5.1) mmol/L Chloride (98-107) mmol/L Carbon Dioxide (22-30) mmol/L Anion Gap (5-15) MEQ/L BUN (9-20) mg/dL Creatinine (0.66-1.25) mg/dL Estimated GFR ML/MIN Glucose (74-106) mg/dL Lactic Acid 1.4 (0.4-2.0) Calcium (8.4-10.2) mg/dL Magnesium (1.6-2.3) mg/dL Total Bilirubin (0.2-1.3) mg/dL AST (17-59) U/L ALT (0-50) U/L Alkaline Phosphatase (38-126) U/L Troponin I (0.000-0.034) ng/mL NT-Pro-B Natriuret Pep (0-1800) pg/mL Serum Total Protein (6.3-8.2) g/dL Albumin (3.5-5.0) g/dL Amylase (30-110) U/L Lipase (23-300) U/L - Progress Progress: improved Discussed with : Devan Will see patient in: hospital (observation) - Departure Departure Disposition: Observation Clinical Impression: Syncope Condition: Good Critical Care Time: No Referrals: TIMOTHY PONCE MD [Primary Care Provider] - Follow up/PCP as directed
[2021-10-29 18:31] LABS: Bacteria RARE /HPF (NEGATIVE); Epithelial Cells RARE /HPF (FEW); Mucus SLIGHT /HPF (NEGATIVE); RBC 0-2 /HPF (0-2); WBC 0-2 /HPF (0-5)
[2021-10-29 18:32] LABS: Appearance CLEAR (CLEAR)
[2021-10-29 18:33] LABS: Bilirubin NEGATIVE (NEGATIVE); Dipstick done @ ? MAIN LAB; Glucose NEGATIVE (NEGATIVE); Ketones NEGATIVE (NEGATIVE); Nitrite NEGATIVE (NEGATIVE); Protein,Urine Dip NEGATIVE (Negative); RBC NEGATIVE Ery/ul (0-5); Specific Gravity 1.025 (1.005-1.025); Urine Cultured Indicated? NO; Urobilinogen 1 mg/dL (0-1)
[2021-10-29 19:26] LABS: INFLUENZA A NEGATIVE (NEGATIVE); INFLUENZA B NEGATIVE (NEGATIVE); RESPIRATORY SYNCTIAL VIRUS NEGATIVE (Negative); SARS-CoV-2 Xpert Express NEGATIVE (NEGATIVE)
--- NOTE | 2021-10-29 20:05 | XRAY ---
Indication: Dizziness. Syncope. Multiple contiguous axial images obtained through the head without contrast. Comparison: September 22, 2021. Again age-appropriate global atrophy, mild periventricular degenerative micro-ischemia, and remote lacunar infarct left external capsule. No acute intracranial hemorrhage, abnormal extra-axial fluid collection, or mass effect. Fourth ventricle is midline without hydrocephalus. Bony calvarium intact. Stable expansile right ethmoid sinus mass/polyp. Mastoid air cells are clear. 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 Comment: Preliminary interpretation made by [facility]. No critical discrepancy.
--- NOTE | 2021-10-29 20:09 | XRAY ---
Indication: Syncope. Dizziness. Comparison: September 22, 2021. Portable apical lordotic chest remains clear. Heart not enlarged. No new/acute findings.
[2021-10-29] MEDS ORDERED: Ambien 5 MG Tablet PO PRN (22:48)
[2021-10-29] MEDS: Coreg 3.125 MG PO SCH (23:07)
[2021-10-29] MEDS: Glucophage XR 500 MG PO SCH (23:07)
[2021-10-29] MEDS: Klor Con 10 MEQ PO SCH (23:08)
[2021-10-30 04:42] LABS: Absolute Neutrophil Ct (ANC) 3.32 (1.4-6.9); Basophil (Absolute #) 0.03 (0-0.4); Eosinophil % 4.4 % (0.00-5.0); Eosinophil (Absolute #) 0.25 (0-0.5); Hematocrit 42.8 % (42-50); Hemoglobin 14.4 gm/dl (12.5-18.0); Lymphocyte (Absolute #) 1.45 (1.0-4.6); Lymphocytes % 25.4 % (24.0-44.0); Mean Cell Volume 97.1 fl (78-100); Mean Corpuscular Hemoglobin 32.7 pg (26-32); Mean Corpuscular Hgb Concent. 33.6 g/dl (32-36); Mean Platelet Volume 10.6 fl (7.5-11.0); Monocyte (Absolute #) 0.66 (0.0-1.3); Monocytes % 11.6 % (0.0-12.0); Neutrophil % 58.1 % (36.0-66.0); Platelet Count 181 K/mm3 (150-450); Red Blood Count 4.41 M/mm3 (4.1-5.6); Red Cell Distribution Width 13.4 % (11.5-14.0); White Blood Count 5.7 K/mm3 (4.0-10.5)
[2021-10-30 06:33] LABS: ALBUMIN 3.5 g/dL (3.5-5.0); BILIRUBIN,TOTAL 0.8 mg/dL (0.2-1.3); Calcium 9.8 mg/dL (8.4-10.2); Creatinine 1 1.48 mg/dL (0.66-1.25); EST GLOMERULAR FILTRATION RATE 47.8 ML/MIN; Potassium 3.6 mmol/L (3.5-5.1); Total Protein 6.2 g/dL (6.3-8.2)
[2021-10-30] MEDS ORDERED: NORCO 5/325 MG PO PRN (07:31)
[2021-10-30] MEDS ORDERED: TYLENOL EXTRA STRENGTH 500 MG PO PRN (07:31)
[2021-10-30] MEDS: Glucophage XR 500 MG PO SCH (07:52)
[2021-10-30] MEDS ORDERED: Amaryl 2 MG PO SCH (08:00)
[2021-10-30] MEDS: Klor Con 10 MEQ PO SCH (09:50)
[2021-10-30] MEDS: Coreg 3.125 MG PO SCH (09:51)
[2021-10-30] MEDS ORDERED: FOLTX (FOLBIC) PO SCH (10:00)
[2021-10-30] MEDS ORDERED: Zestril 20 MG*** 20 MG, hydroDIURIL 25 MG*** 25 MG PO SCH ×2 (10:00)
[2021-10-30] MEDS ORDERED: FOLATE 1 MG PO SCH (10:00)
[2021-10-30] MEDS ORDERED: NON-FORMULARY ITEM (Lisinopril/Hydrochlorothiazide [Lisinopril-Hctz 20-25 Mg Tab] 1 EACH T PO SCH (10:00)
[2021-10-30] MEDS ORDERED: COQ10 PO SCH (10:00)
[2021-10-30] MEDS ORDERED: B12 PO SCH (10:00)
[2021-10-30] MEDS ORDERED: Zocor 10MG PO SCH (10:00)
[2021-10-30] MEDS ORDERED: FOLIC ACID 0.8 MG PO SCH (10:00)
[2021-10-30] MEDS ORDERED: VITAMIN E 100 UNIT PO SCH (10:00)
[2021-10-30] MEDS ORDERED: Flomax 0.4 MG PO SCH (10:00)
[2021-10-30] MEDS ORDERED: B1 PO SCH (10:00)
[2021-10-30] MEDS ORDERED: PLAVIX 75 MG Tablet PO SCH (10:00)
[2021-10-30] MEDS ORDERED: B6 PO SCH (10:00)
[2021-10-30] MEDS ORDERED: [UNRECOGNIZED DRUG - OTHER] PO SCH (10:00)
[2021-10-30] MEDS ORDERED: FEOSOL 325 MG PO SCH (10:00)
[2021-10-30] MEDS ORDERED: Vitamin E 400 UNIT SOFTGEL PO SCH (10:00)
[2021-10-30] MEDS ORDERED: Ditropan XL 5 MG PO SCH (10:00)
[2021-10-30] MEDS ORDERED: VIT E PO SCH (10:00)
[2021-10-30] MEDS ORDERED: ECOTRIN 81 MG PO SCH (10:00)
[2021-10-30] MEDS ORDERED: Protonix 40MG Tablet PO SCH (10:00)
[2021-10-30] MEDS ORDERED: ALA PO SCH (10:00)
[2021-10-30] MEDS ORDERED: Imdur 30 MG PO SCH (10:00)
--- NOTE | 2021-10-30 10:58 | PCM.HP ---
History of Present Illness - Chief Complaint Chief Complaint: passed out 2-3 times at home History of Present Illness: is a 86 year old male. who had 2 syncopal or near syncopal episodes at home by the home health nurse. The report was initially that he had not lost consciousness but he says he does not remember everything. I believe he did have a least brief loss of consciousness. The patient was recently in the ER for dizziness and syncope and was released to a shelter from which she was discharged 2 to 3 days ago. Witnessed: other ([facility] nurse) Prior Episodes: multiple episodes today Timing/Duration: today, improved Precipitating Factors: unknown Context: standing Loss of Consciousness: brief (seconds) Charcter of event(s): collapsed - Review of Systems Constitutional: No Fever, No Chills Eyes: No Symptoms Ears, Nose, & Throat: No Symptoms Respiratory: No Cough, No Short Of Breath Cardiac: No Chest Pain, No Edema, No Syncope Abdominal/Gastrointestinal: No Abdominal Pain, No Nausea, No Vomiting, No Diarrhea Genitourinary Symptoms: No Dysuria Musculoskeletal: No Back Pain, No Neck Pain Skin: No Rash Neurological: Dizziness, No Focal Weakness, No Sensory Changes Psychological: No Symptoms Endocrine: No Symptoms Hematologic/Lymphatic: No Symptoms Immunological/Allergic: No Symptoms Medications & Allergies Home Medications: Home Medication List Aspirin [Aspir 81] 81 mg PO DAILY 07/23/12 [History Confirmed 10/29/21] Isosorbide Mononitrate 30 mg [Imdur 30 MG] 30 mg PO DAILY 09/21/12 [History Confirmed 10/29/21] Potassium Chloride 10 Meq Tab* [Klor Con 10 MEQ] 10 meq PO BID 09/21/12 [History Confirmed 10/29/21] Carvedilol 6.25 mg [Coreg 6.25 MG] 3.125 mg PO BID 02/04/15 [History Confirmed 10/29/21] Lisinopril/Hydrochlorothiazide [Lisinopril-Hctz 20-25 mg Tab] 20 - 25 mg PO DAILY 02/04/15 [History Confirmed 10/29/21] Tamsulosin HCl 0.4 mg [Flomax 0.4 MG] 0.4 mg PO DAILY 08/08/17 [History Confirmed 10/29/21] Acetaminophen 500 mg [Tylenol Extra Strength 500 mg] 500 - 1,000 mg PO BID PRN PRN 07/28/19 [History Confirmed 10/29/21] Folic Acid 1 mg PO DAILY 07/28/19 [History Confirmed 10/29/21] Oxybutynin Chloride [Oxybutynin Chloride ER] 5 mg PO DAILY 07/28/19 [History Confirmed 10/29/21] Clopidogrel Bisulfate 75 mg [PLAVIX 75 MG Tablet] 75 mg PO DAILY 04/21/20 [History Confirmed 10/29/21] Vitamin E 100 unit PO BID 08/01/20 [History Confirmed 10/29/21] Ferrous Sulfate [Iron] 1 ea PO DAILY 09/22/21 [History Confirmed 10/29/21] Glimepiride 2 mg [Amaryl 2 MG] 1 ea PO DAILY 09/22/21 [History Confirmed 10/29/21] Metformin HCl [Metformin ER Osmotic] 1 ea PO BID 09/22/21 [History Confirmed 10/29/21] Vit E/B1/B6/FA/B12/Ala/Coq10 [Folic-K Capsule] 1 ea PO BID 09/22/21 [History Confirmed 10/29/21] Hydrocodone/Acetaminophen [Hydrocodone-Acetamin 5-325 mg] 1 tab PO Q6HPRN PRN MDD 4 10/29/21 [History Confirmed 10/29/21] Insulin Lispro [Insulin Lispro Kwikpen U-100] 100 unit SQ AC 10/29/21 [History Confirmed 10/29/21] PANTOPRAZOLE 40 mg Tablet [Protonix 40MG Tablet] 40 mg PO QAM 10/29/21 [History Confirmed 10/29/21] Simvastatin 10 mg [Zocor 10MG] 10 mg PO DAILY 10/29/21 [History Confirmed 10/29/21] Zolpidem Tartrate 5 mg [Ambien 5 MG Tablet] 5 mg PO HS 10/29/21 [History Confirmed 10/29/21] Allergies/Adverse Reactions: Allergies Allergy/AdvReac Type Severity Reaction Status Date / Time No Known Drug Allergies Allergy Verified 10/29/21 15:42 - Past Medical History Past Medical History: Yes Neurological History: TIA ENT History: No Pertinent History Cardiac History: Coronary Artery Disease, Hypertension Respiratory History: No Pertinent History Endocrine Medical History: Diabetes Type II Musculoskelatal History: Arthritis GI Medical History: GI Bleed History: No Pertinent History Pyscho-Social History: No Pertinent History Male Reproductive Disorders: No Pertinent History - Past Surgical History Past Surgical History: Yes Neuro Surgical History: No Pertinent History Cardiac History: Cardiac Catheterization, Cardiac Stent Respiratory Surgery: No Pertinent History GI Surgical History: Hernia Repair Genitourinary Surgical Hx: No Pertinent History Musculskeletal Surgical Hx: Orthopedic Surgery Male Surgical History: No Pertinent History Other Surgical History: Nasal surgery - Social History Smoking Status: Former smoker Exposure to second hand smoke: Yes Alcohol: None Drug Use: none Significant Family History: no pertinent family hx - Physical Exam Vital Signs: Vital Signs - 24 hr Temp Pulse Resp BP Pulse Ox 10/30/21 08:00 97.9 F 58 L 18 144/66 94 L 10/30/21 04:00 97.7 F 58 L 15 145/78 93 L 10/30/21 00:00 18 10/29/21 23:34 98.9 F 56 L 25 H 165/79 96 10/29/21 20:24 98.9 F 56 L 25 H 165/79 96 10/29/21 19:02 68 18 192/82 98 10/29/21 18:03 59 L 18 138/73 97 10/29/21 17:57 94 L 10/29/21 17:05 65 18 126/69 94 L 10/29/21 16:49 18 96 General Appearance: no apparent distress, alert Neurologic Exam: alert, oriented x 3, cooperative, normal mood/affect, nml cerebellar function, nml station & gait, sensation nml, No motor deficits Eye Exam: PERRL/EOMI, eyes nml inspection Ears, Nose, Throat Exam: normal ENT inspection, TMs normal, pharynx normal, moist mucous membranes Neck Exam: normal inspection, non-tender, supple, full range of motion Respiratory Exam: normal breath sounds, lungs clear, No respiratory distress Cardiovascular Exam: regular rate/rhythm, normal heart sounds, normal peripheral pulses Gastrointestinal/Abdomen Exam: soft, normal bowel sounds, No tenderness, No mass Back Exam: normal inspection, normal range of motion, No CVA tenderness, No vertebral tenderness Extremity Exam: normal inspection, normal range of motion, pelvis stable Skin Exam: normal color, warm, dry, No rash Lymphatic Exam: No adenopathy Results - Labs Lab/Micro Results: Lab Results-Last 24 Hours 10/29/21 10/29/21 10/29/21 Range/Units 16:00 16:03 16:03 WBC 7.1 (4.0-10.5) K/mm3 RBC 4.52 (4.1-5.6) M/mm3 Hgb 14.7 (12.5-18.0) gm/dl Hct 43.9 (42-50) % MCV 97.1 (78-100) fl MCH 32.5 H (26-32) pg MCHC 33.5 (32-36) g/dl RDW 13.3 (11.5-14.0) % Plt Count 206 (150-450) K/mm3 MPV 11.1 H (7.5-11.0) fl Gran % 66.8 H (36.0-66.0) % Eos # (Auto) 0.16 (0-0.5) Absolute Lymphs (auto) 1.54 (1.0-4.6) Absolute Monos (auto) 0.65 (0.0-1.3) Lymphocytes % 21.6 L (24.0-44.0) % Monocytes % 9.1 (0.0-12.0) % Eosinophils % 2.2 (0.00-5.0) % Basophils % 0.3 (0.0-0.4) % Absolute Granulocytes 4.77 (1.4-6.9) Basophils # 0.02 (0-0.4) ESR 11 (0-15) mm/hr PT (9.4-12.5) SECONDS INR (0.8-3.0) Sodium 137 (137-145) mmol/L Potassium 4.4 (3.5-5.1) mmol/L Chloride 103 (98-107) mmol/L Carbon Dioxide 23 (22-30) mmol/L Anion Gap 15.4 H (5-15) MEQ/L BUN 30 H (9-20) mg/dL Creatinine 1.53 H (0.66-1.25) mg/dL Estimated GFR 46.0 ML/MIN Glucose 211 H (74-106) mg/dL POC Glucometer (74 to 106) mg/dL Lactic Acid 1.4 (0.4-2.0) Calcium 10.4 H (8.4-10.2) mg/dL Magnesium 1.9 (1.6-2.3) mg/dL Total Bilirubin 1.20 (0.2-1.3) mg/dL AST 33 (17-59) U/L ALT 19 (0-50) U/L Alkaline Phosphatase 56 (38-126) U/L Troponin I (0.000-0.034) ng/mL NT-Pro-B Natriuret Pep 119 (0-1800) pg/mL Serum Total Protein 6.7 (6.3-8.2) g/dL Albumin 4.0 (3.5-5.0) g/dL Amylase 52 (30-110) U/L Lipase 148 (23-300) U/L Urinalys Dipstick Clnc Urine Color (YELLOW) Urine Appearance (CLEAR) Urine pH (5-6) Ur Specific [place] (1.005-1.025) POC Urine Protein Conf (Negative) Urine Ketones (NEGATIVE) Urine Nitrite (NEGATIVE) Urine Bilirubin (NEGATIVE) Urine Urobilinogen (0-1) mg/dL Urine Leukocytes (NEGATIVE) Urine WBC (Auto) (0-5) /HPF Urine RBC (Auto) (0-2) /HPF U Epithel Cells (Auto) (FEW) /HPF Urine Bacteria (Auto) (NEGATIVE) /HPF Urine RBC (0-5) Wicho/ul Urine Mucus (Auto) (NEGATIVE) /HPF Ur Culture Indicated? Urine Glucose (NEGATIVE) mg/dL Influenza Type A Ag (NEGATIVE) Influenza Type B Ag (NEGATIVE) RSV (PCR) (Negative) SARS-CoV-2 (PCR) (NEGATIVE) 10/29/21 10/29/21 10/29/21 Range/Units 16:03 16:03 17:32 WBC (4.0-10.5) K/mm3 RBC (4.1-5.6) M/mm3 Hgb (12.5-18.0) gm/dl Hct (42-50) % MCV (78-100) fl MCH (26-32) pg MCHC (32-36) g/dl RDW (11.5-14.0) % Plt Count (150-450) K/mm3 MPV (7.5-11.0) fl Gran % (36.0-66.0) % Eos # (Auto) (0-0.5) Absolute Lymphs (auto) (1.0-4.6) Absolute Monos (auto) (0.0-1.3) Lymphocytes % (24.0-44.0) % Monocytes % (0.0-12.0) % Eosinophils % (0.00-5.0) % Basophils % (0.0-0.4) % Absolute Granulocytes (1.4-6.9) Basophils # (0-0.4) ESR (0-15) mm/hr PT 11.8 (9.4-12.5) SECONDS INR 1.00 (0.8-3.0) Sodium (137-145) mmol/L Potassium (3.5-5.1) mmol/L Chloride (98-107) mmol/L Carbon Dioxide (22-30) mmol/L Anion Gap (5-15) MEQ/L BUN (9-20) mg/dL Creatinine (0.66-1.25) mg/dL Estimated GFR ML/MIN Glucose (74-106) mg/dL POC Glucometer (74 to 106) mg/dL Lactic Acid (0.4-2.0) Calcium (8.4-10.2) mg/dL Magnesium (1.6-2.3) mg/dL Total Bilirubin (0.2-1.3) mg/dL AST (17-59) U/L ALT (0-50) U/L Alkaline Phosphatase (38-126) U/L Troponin I 0.016 (0.000-0.034) ng/mL NT-Pro-B Natriuret Pep (0-1800) pg/mL Serum Total Protein (6.3-8.2) g/dL Albumin (3.5-5.0) g/dL Amylase (30-110) U/L Lipase (23-300) U/L Urinalys Dipstick Clnc MAIN LAB Urine Color YELLOW (YELLOW) Urine Appearance CLEAR (CLEAR) Urine pH 6.0 (5-6) Ur Specific [place] 1.025 (1.005-1.025) POC Urine Protein Conf NEGATIVE (Negative) Urine Ketones NEGATIVE (NEGATIVE) Urine Nitrite NEGATIVE (NEGATIVE) Urine Bilirubin NEGATIVE (NEGATIVE) Urine Urobilinogen 1 (0-1) mg/dL Urine Leukocytes NEGATIVE (NEGATIVE) Urine WBC (Auto) 0-2 (0-5) /HPF Urine RBC (Auto) 0-2 (0-2) /HPF U Epithel Cells (Auto) RARE (FEW) /HPF Urine Bacteria (Auto) RARE (NEGATIVE) /HPF Urine RBC NEGATIVE (0-5) W[place]o/ul Urine Mucus (Auto) SLIGHT (NEGATIVE) /HPF Ur Culture Indicated? NO Urine Glucose NEGATIVE (NEGATIVE) mg/dL Influenza Type A Ag (NEGATIVE) Influenza Type B Ag (NEGATIVE) RSV (PCR) (Negative) SARS-CoV-2 (PCR) (NEGATIVE) 10/29/21 10/29/21 10/29/21 Range/Units 18:00 19:15 20:58 WBC (4.0-10.5) K/mm3 RBC (4.1-5.6) M/mm3 Hgb (12.5-18.0) gm/dl Hct (42-50) % MCV (78-100) fl MCH (26-32) pg MCHC (32-36) g/dl RDW (11.5-14.0) % Plt Count (150-450) K/mm3 MPV (7.5-11.0) fl Gran % (36.0-66.0) % Eos # (Auto) (0-0.5) Absolute Lymphs (auto) (1.0-4.6) Absolute Monos (auto) (0.0-1.3) Lymphocytes % (24.0-44.0) % Monocytes % (0.0-12.0) % Eosinophils % (0.00-5.0) % Basophils % (0.0-0.4) % Absolute Granulocytes (1.4-6.9) Basophils # (0-0.4) ESR (0-15) mm/hr PT (9.4-12.5) SECONDS INR (0.8-3.0) Sodium (137-145) mmol/L Potassium (3.5-5.1) mmol/L Chloride (98-107) mmol/L Carbon Dioxide (22-30) mmol/L Anion Gap (5-15) MEQ/L BUN (9-20) mg/dL Creatinine (0.66-1.25) mg/dL Estimated GFR ML/MIN Glucose (74-106) mg/dL POC Glucometer 182 H (74 to 106) mg/dL Lactic Acid (0.4-2.0) Calcium (8.4-10.2) mg/dL Magnesium (1.6-2.3) mg/dL Total Bilirubin (0.2-1.3) mg/dL AST (17-59) U/L ALT (0-50) U/L Alkaline Phosphatase (38-126) U/L Troponin I 0.016 (0.000-0.034) ng/mL NT-Pro-B Natriuret Pep (0-1800) pg/mL Serum Total Protein (6.3-8.2) g/dL Albumin (3.5-5.0) g/dL Amylase (30-110) U/L Lipase (23-300) U/L Urinalys Dipstick Clnc Urine Color (YELLOW) Urine Appearance (CLEAR) Urine pH (5-6) Ur Specific [place] (1.005-1.025) POC Urine Protein Conf (Negative) Urine Ketones (NEGATIVE) Urine Nitrite (NEGATIVE) Urine Bilirubin (NEGATIVE) Urine Urobilinogen (0-1) mg/dL Urine Leukocytes (NEGATIVE) Urine WBC (Auto) (0-5) /HPF Urine RBC (Auto) (0-2) /HPF U Epithel Cells (Auto) (FEW) /HPF Urine Bacteria (Auto) (NEGATIVE) /HPF Urine RBC (0-5) Wicho/ul Urine Mucus (Auto) (NEGATIVE) /HPF Ur Culture Indicated? Urine Glucose (NEGATIVE) mg/dL Influenza Type A Ag NEGATIVE (NEGATIVE) Influenza Type B Ag NEGATIVE (NEGATIVE) RSV (PCR) NEGATIVE (Negative) SARS-CoV-2 (PCR) NEGATIVE (NEGATIVE) 10/29/21 10/30/21 10/30/21 Range/Units 22:15 01:00 04:30 WBC (4.0-10.5) K/mm3 RBC (4.1-5.6) M/mm3 Hgb (12.5-18.0) gm/dl Hct (42-50) % MCV (78-100) fl MCH (26-32) pg MCHC (32-36) g/dl RDW (11.5-14.0) % Plt Count (150-450) K/mm3 MPV (7.5-11.0) fl Gran % (36.0-66.0) % Eos # (Auto) (0-0.5) Absolute Lymphs (auto) (1.0-4.6) Absolute Monos (auto) (0.0-1.3) Lymphocytes % (24.0-44.0) % Monocytes % (0.0-12.0) % Eosinophils % (0.00-5.0) % Basophils % (0.0-0.4) % Absolute Granulocytes (1.4-6.9) Basophils # (0-0.4) ESR (0-15) mm/hr PT (9.4-12.5) SECONDS INR (0.8-3.0) Sodium (137-145) mmol/L Potassium (3.5-5.1) mmol/L Chloride (98-107) mmol/L Carbon Dioxide (22-30) mmol/L Anion Gap (5-15) MEQ/L BUN (9-20) mg/dL Creatinine (0.66-1.25) mg/dL Estimated GFR ML/MIN Glucose (74-106) mg/dL POC Glucometer (74 to 106) mg/dL Lactic Acid (0.4-2.0) Calcium (8.4-10.2) mg/dL Magnesium (1.6-2.3) mg/dL Total Bilirubin (0.2-1.3) mg/dL AST (17-59) U/L ALT (0-50) U/L Alkaline Phosphatase (38-126) U/L Troponin I 0.019 0.024 0.028 (0.000-0.034) ng/mL NT-Pro-B Natriuret Pep (0-1800) pg/mL Serum Total Protein (6.3-8.2) g/dL Albumin (3.5-5.0) g/dL Amylase (30-110) U/L Lipase (23-300) U/L Urinalys Dipstick Clnc Urine Color (YELLOW) Urine Appearance (CLEAR) Urine pH (5-6) Ur Specific [place] (1.005-1.025) POC Urine Protein Conf (Negative) Urine Ketones (NEGATIVE) Urine Nitrite (NEGATIVE) Urine Bilirubin (NEGATIVE) Urine Urobilinogen (0-1) mg/dL Urine Leukocytes (NEGATIVE) Urine WBC (Auto) (0-5) /HPF Urine RBC (Auto) (0-2) /HPF U Epithel Cells (Auto) (FEW) /HPF Urine Bacteria (Auto) (NEGATIVE) /HPF Urine RBC (0-5) Wicho/ul Urine Mucus (Auto) (NEGATIVE) /HPF Ur Culture Indicated? Urine Glucose (NEGATIVE) mg/dL Influenza Type A Ag (NEGATIVE) Influenza Type B Ag (NEGATIVE) RSV (PCR) (Negative) SARS-CoV-2 (PCR) (NEGATIVE) 10/30/21 10/30/21 10/30/21 Range/Units 04:30 04:30 08:01 WBC 5.7 (4.0-10.5) K/mm3 RBC 4.41 (4.1-5.6) M/mm3 Hgb 14.4 (12.5-18.0) gm/dl Hct 42.8 (42-50) % MCV 97.1 (78-100) fl MCH 32.7 H (26-32) pg MCHC 33.6 (32-36) g/dl RDW 13.4 (11.5-14.0) % Plt Count 181 (150-450) K/mm3 MPV 10.6 (7.5-11.0) fl Gran % 58.1 (36.0-66.0) % Eos # (Auto) 0.25 (0-0.5) Absolute Lymphs (auto) 1.45 (1.0-4.6) Absolute Monos (auto) 0.66 (0.0-1.3) Lymphocytes % 25.4 (24.0-44.0) % Monocytes % 11.6 (0.0-12.0) % Eosinophils % 4.4 (0.00-5.0) % Basophils % 0.5 (0.0-0.4) % Absolute Granulocytes 3.32 (1.4-6.9) Basophils # 0.03 (0-0.4) ESR (0-15) mm/hr PT (9.4-12.5) SECONDS INR (0.8-3.0) Sodium 137 (137-145) mmol/L Potassium 3.6 (3.5-5.1) mmol/L Chloride 105 (98-107) mmol/L Carbon Dioxide 24 (22-30) mmol/L Anion Gap 12.0 (5-15) MEQ/L BUN 26 H (9-20) mg/dL Creatinine 1.48 H (0.66-1.25) mg/dL Estimated GFR 47.8 ML/MIN Glucose 225 H (74-106) mg/dL POC Glucometer 185 H (74 to 106) mg/dL Lactic Acid (0.4-2.0) Calcium 9.8 (8.4-10.2) mg/dL Magnesium (1.6-2.3) mg/dL Total Bilirubin 0.80 (0.2-1.3) mg/dL AST 25 (17-59) U/L ALT 19 (0-50) U/L Alkaline Phosphatase 56 (38-126) U/L Troponin I (0.000-0.034) ng/mL NT-Pro-B Natriuret Pep (0-1800) pg/mL Serum Total Protein 6.2 L (6.3-8.2) g/dL Albumin 3.5 (3.5-5.0) g/dL Amylase (30-110) U/L Lipase (23-300) U/L Urinalys Dipstick Clnc Urine Color (YELLOW) Urine Appearance (CLEAR) Urine pH (5-6) Ur Specific [place] (1.005-1.025) POC Urine Protein Conf (Negative) Urine Ketones (NEGATIVE) Urine Nitrite (NEGATIVE) Urine Bilirubin (NEGATIVE) Urine Urobilinogen (0-1) mg/dL Urine Leukocytes (NEGATIVE) Urine WBC (Auto) (0-5) /HPF Urine RBC (Auto) (0-2) /HPF U Epithel Cells (Auto) (FEW) /HPF Urine Bacteria (Auto) (NEGATIVE) /HPF Urine RBC (0-5) Wicho/ul Urine Mucus (Auto) (NEGATIVE) /HPF Ur Culture Indicated? Urine Glucose (NEGATIVE) mg/dL Influenza Type A Ag (NEGATIVE) Influenza Type B Ag (NEGATIVE) RSV (PCR) (Negative) SARS-CoV-2 (PCR) (NEGATIVE) Accuchecks Date 10/30/21 Time 08:06 - Radiology Impressions Radiology Exams & Impressions: Radiology Procedures Category Date Time Status CHEST 1 VIEW (PORTABLE) Stat Exams 10/29/21 15:50 Completed HEAD WITHOUT CONTRAST [CT] Stat Exams 10/29/21 15:[address]/HEAD WITHOUT CONTRAST Indication: Dizziness. Syncope. Multiple contiguous axial images obtained through the head without contrast. Comparison: September 22, 2021. Again age-appropriate global atrophy, mild periventricular degenerative micro-ischemia, and remote lacunar infarct left external capsule. No acute intracranial hemorrhage, abnormal extra-axial fluid collection, or mass effect. Fourth ventricle is midline without hydrocephalus. Bony calvarium intact. Stable expansile right ethmoid sinus mass/polyp. Mastoid air cells are clear. 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 Assessment/Plan (1) Syncope Current Visit: Yes Status: Acute Qualifiers: Syncope type: unspecified Qualified Code(s): R55 - Syncope and collapse Assessment & Plan: Chief Complaint Diagnosis syncope Allergies Allergy/AdvReac Type Severity Reaction Status Date / Time No Known Drug Allergies Allergy Verified 10/29/21 15:42 Vital Signs (Last 24 hours) Temp Pulse Resp BP Pulse Ox 10/30/21 08:00 97.9 F 58 L 18 144/66 94 L 10/30/21 04:00 97.7 F 58 L 15 145/78 93 L 10/30/21 00:00 18 10/29/21 23:34 98.9 F 56 L 25 H 165/79 96 10/29/21 20:24 98.9 F 56 L 25 H 165/79 96 10/29/21 19:02 68 18 192/82 98 10/29/21 18:03 59 L 18 138/73 97 10/29/21 17:57 94 L 10/29/21 17:05 65 18 126/69 94 L 10/29/21 16:49 18 96 Home Medications Medication Instructions Recorded Confirmed Last Taken Type Hydrocodone/Acetaminophen 1 tab PO Q6HPRN PRN MDD 4 10/29/21 10/29/21 Unknown History [Hydrocodone-Acetamin 5-325 mg] Insulin Lispro [Insulin Lispro 100 unit SQ AC 10/29/21 10/29/21 Unknown History Kwikpen U-100] PANTOPRAZOLE 40 mg Tablet 40 mg PO QAM 10/29/21 10/29/21 Unknown History [Protonix 40MG Tablet] Simvastatin 10 mg [Zocor 10MG] 10 mg PO DAILY 10/29/21 10/29/21 Unknown History Zolpidem Tartrate 5 mg [Ambien 5 5 mg PO HS 10/29/21 10/29/21 Unknown History MG Tablet] Current Medications Generic Name Dose Route Start Last Admin Trade Name Freq PRN Reason Stop Dose Admin Acetaminophen 500 - 1,000 mg 10/30/21 07:31 Acetaminophen 500 Mg Tablet PO 11/29/21 07:30 BID PRN PRN PAIN AND/OR FEVER Hydrocodone Bitart/Acetaminophen 1 tab 10/30/21 07:31 Hydrocodone/Apap 5/325 Mg Tablet PO 11/04/21 07:30 Q6HPRN PRN PAIN Aspirin 81 mg 10/30/21 10:00 10/30/21 09:50 Aspirin 81 Mg Tablet.Ec PO 11/29/21 09:59 81 mg DAILY ART Administration Carvedilol 3.125 mg 10/29/21 22:00 10/30/21 09:51 Carvedilol 3.125 Mg Tablet PO 11/28/21 21:59 3.125 mg BID ART Administration Clopidogrel Bisulfate 75 mg 10/30/21 10:00 10/30/21 09:49 Clopidogrel Bisulfate 75 Mg Tablet PO 11/29/21 09:59 75 mg DAILY ART Administration Lisinopril 20 mg/ 0 mg 10/30/21 10:00 10/30/21 09:50 Hydrochlorothiazide 25 mg PO 11/29/21 09:59 20 mg DAILY ART Administration Ferrous Sulfate 325 mg 10/30/21 10:00 10/30/21 09:51 Ferrous Sulfate 325 Mg Tablet PO 11/29/21 09:59 325 mg DAILY ART Administration Folic Acid 1 mg 10/30/21 10:00 10/30/21 09:49 Folic Acid 1 Mg Tablet PO 11/29/21 09:59 1 mg DAILY ART Administration Folic Acid 1 tab 10/30/21 10:00 10/30/21 09:51 Folic Acid/Vitamin B Comp W-C 1 Tab Tab PO 11/29/21 09:59 1 tab BID ART Administration Glimepiride 2 mg 10/30/21 08:00 10/30/21 07:52 Glimepiride 2 Mg Tablet PO 11/29/21 07:59 2 mg DAILY@0800 ART Administration Isosorbide Mononitrate 30 mg 10/30/21 10:00 10/30/21 09:49 Isosorbide Mononitrate 30 Mg Tab PO 11/29/21 09:59 30 mg DAILY ART Administration Metformin HCl 1,000 mg 10/29/21 22:00 10/30/21 07:52 Metformin Hcl Er 500 Mg Tab PO 11/28/21 21:59 1,000 mg BIDWM ART Administration Non-Formulary Medication 100 unit 10/30/21 11:30 Insulin Lispro [Insulin Lispro Kwikpen U-100] SQ 11/29/21 11:29 AC ART Oxybutynin Chloride 5 mg 10/30/21 10:00 10/30/21 09:49 Oxybutynin Chloride Xl 5 Mg Tab PO 11/29/21 09:59 5 mg DAILY ART Administration Pantoprazole Sodium 40 mg 10/30/21 10:00 10/30/21 09:50 Protonix (Pantoprazole) 40 Mg Tablet PO 11/29/21 09:59 40 mg QAM ART Administration Potassium Chloride 10 meq 10/29/21 22:00 10/30/21 09:50 Potassium Chloride 10 Meq Tablet PO 11/28/21 21:59 10 meq BID ART Administration Simvastatin 10 mg 10/30/21 10:00 10/30/21 09:49 Simvastatin 10 Mg Tablet PO 11/29/21 09:59 10 mg DAILY ART Administration Tamsulosin HCl 0.4 mg 10/30/21 10:00 10/30/21 09:49 Tamsulosin Hcl 0.4 Mg Cap PO 11/29/21 09:59 0.4 mg DAILY ART Administration Vitamin E 400 u 10/30/21 10:00 10/30/21 09:52 Vitamin E 400 Iu Softgel PO 11/29/21 09:59 400 u BID ART Administration Zolpidem Tartrate 5 mg 10/30/21 22:00 Zolpidem Tartrate 5 Mg Tab PO 11/29/21 21:59 HS [facility] Discontinued Medications Generic Name Dose Route Start Last Admin Trade Name Freq PRN Reason Stop Dose Admin Sodium Chloride 1,000 mls @ 100 mls/hr 10/29/21 16:00 10/29/21 16:02 Sodium Chloride 0.9% 1000 Ml IV 11/28/21 15:59 100 mls/hr .Q10H ART Administration Sodium Chloride Confirm 10/29/21 16:01 Sodium Chloride 0.9% 1000 Ml Administered 10/29/21 16:02 Dose 1,000 mls @ ud .ROUTE .STK-MED ONE Zolpidem Tartrate 5 mg 10/29/21 22:48 10/29/21 23:08 Zolpidem Tartrate 5 Mg Tab PO 11/28/21 22:47 5 mg HS PRN PRN Administration INSOMNIA Intake & Output (Last 24 hours) 10/27/21 10/28/21 10/29/21 10/30/21 11:59 11:59 11:59 11:59 Intake Total 1160 Output Total 1050 Balance 110 Weight 73.7 kg Laboratory Results (Last 24 hours) 10/30/21 10/30/21 10/30/21 08:01 04:30 04:30 WBC 5.7 RBC 4.41 Hgb 14.4 Hct 42.8 MCV 97.1 MCH 32.7 H MCHC 33.6 RDW 13.4 Plt Count 181 MPV 10.6 Gran % 58.1 Eos # (Auto) 0.25 Absolute Lymphs (auto) 1.45 Absolute Monos (auto) 0.66 Lymphocytes % 25.4 Monocytes % 11.6 Eosinophils % 4.4 Basophils % 0.5 Absolute Granulocytes 3.32 Basophils # 0.03 ESR PT INR Sodium 137 Potassium 3.6 Chloride 105 Carbon Dioxide 24 Anion Gap 12.0 BUN 26 H Creatinine 1.48 H Estimated GFR 47.8 Glucose 225 H POC Glucometer 185 H Lactic Acid Calcium 9.8 Magnesium Total Bilirubin 0.80 AST 25 ALT 19 Alkaline Phosphatase 56 Troponin I NT-Pro-B Natriuret Pep Serum Total Protein 6.2 L Albumin 3.5 Amylase Lipase Urinalys Dipstick Clnc Urine Color Urine Appearance Urine pH Ur Specific [place] POC Urine Protein Conf Urine Ketones Urine Nitrite Urine Bilirubin Urine Urobilinogen Urine Leukocytes Urine WBC (Auto) Urine RBC (Auto) U Epithel Cells (Auto) Urine Bacteria (Auto) Urine RBC Urine Mucus (Auto) Ur Culture Indicated? Urine Glucose Influenza Type A Ag Influenza Type B Ag RSV (PCR) SARS-CoV-2 (PCR) 10/30/21 10/30/21 10/29/21 04:30 01:00 22:15 WBC RBC Hgb Hct MCV MCH MCHC RDW Plt Count MPV Gran % Eos # (Auto) Absolute Lymphs (auto) Absolute Monos (auto) Lymphocytes % Monocytes % Eosinophils % Basophils % Absolute Granulocytes Basophils # ESR PT INR Sodium Potassium Chloride Carbon Dioxide Anion Gap BUN Creatinine Estimated GFR Glucose POC Glucometer Lactic Acid Calcium Magnesium Total Bilirubin AST ALT Alkaline Phosphatase Troponin I 0.028 0.024 0.019 NT-Pro-B Natriuret Pep Serum Total Protein Albumin Amylase Lipase Urinalys Dipstick Clnc Urine Color Urine Appearance Urine pH Ur Specific [place] POC Urine Protein Conf Urine Ketones Urine Nitrite Urine Bilirubin Urine Urobilinogen Urine Leukocytes Urine WBC (Auto) Urine RBC (Auto) U Epithel Cells (Auto) Urine Bacteria (Auto) Urine RBC Urine Mucus (Auto) Ur Culture Indicated? Urine Glucose Influenza Type A Ag Influenza Type B Ag RSV (PCR) SARS-CoV-2 (PCR) 10/29/21 10/29/21 10/29/21 20:58 19:15 18:00 WBC RBC Hgb Hct MCV MCH MCHC RDW Plt Count MPV Gran % Eos # (Auto) Absolute Lymphs (auto) Absolute Monos (auto) Lymphocytes % Monocytes % Eosinophils % Basophils % Absolute Granulocytes Basophils # ESR PT INR Sodium Potassium Chloride Carbon Dioxide Anion Gap BUN Creatinine Estimated GFR Glucose POC Glucometer 182 H Lactic Acid Calcium Magnesium Total Bilirubin AST ALT Alkaline Phosphatase Troponin I 0.016 NT-Pro-B Natriuret Pep Serum Total Protein Albumin Amylase Lipase Urinalys Dipstick Clnc Urine Color Urine Appearance Urine pH Ur Specific [place] POC Urine Protein Conf Urine Ketones Urine Nitrite Urine Bilirubin Urine Urobilinogen Urine Leukocytes Urine WBC (Auto) Urine RBC (Auto) U Epithel Cells (Auto) Urine Bacteria (Auto) Urine RBC Urine Mucus (Auto) Ur Culture Indicated? Urine Glucose Influenza Type A Ag NEGATIVE Influenza Type B Ag NEGATIVE RSV (PCR) NEGATIVE SARS-CoV-2 (PCR) NEGATIVE 10/29/21 10/29/21 10/29/21 17:32 16:03 16:03 WBC RBC Hgb Hct MCV MCH MCHC RDW Plt Count MPV Gran % Eos # (Auto) Absolute Lymphs (auto) Absolute Monos (auto) Lymphocytes % Monocytes % Eosinophils % Basophils % Absolute Granulocytes Basophils # ESR PT 11.8 INR 1.00 Sodium Potassium Chloride Carbon Dioxide Anion Gap BUN Creatinine Estimated GFR Glucose POC Glucometer Lactic Acid Calcium Magnesium Total Bilirubin AST ALT Alkaline Phosphatase Troponin I 0.016 NT-Pro-B Natriuret Pep Serum Total Protein Albumin Amylase Lipase Urinalys Dipstick Clnc MAIN LAB Urine Color YELLOW Urine Appearance CLEAR Urine pH 6.0 Ur Specific [place] 1.025 POC Urine Protein Conf NEGATIVE Urine Ketones NEGATIVE Urine Nitrite NEGATIVE Urine Bilirubin NEGATIVE Urine Urobilinogen 1 Urine Leukocytes NEGATIVE Urine WBC (Auto) 0-2 Urine RBC (Auto) 0-2 U Epithel Cells (Auto) RARE Urine Bacteria (Auto) RARE Urine RBC NEGATIVE Urine Mucus (Auto) SLIGHT Ur Culture Indicated? NO Urine Glucose NEGATIVE Influenza Type A Ag Influenza Type B Ag RSV (PCR) SARS-CoV-2 (PCR) 10/29/21 10/29/21 10/29/21 16:03 16:03 16:00 WBC 7.1 RBC 4.52 Hgb 14.7 Hct 43.9 MCV 97.1 MCH 32.5 H MCHC 33.5 RDW 13.3 Plt Count 206 MPV 11.1 H Gran % 66.8 H Eos # (Auto) 0.16 Absolute Lymphs (auto) 1.54 Absolute Monos (auto) 0.65 Lymphocytes % 21.6 L Monocytes % 9.1 Eosinophils % 2.2 Basophils % 0.3 Absolute Granulocytes 4.77 Basophils # 0.02 ESR 11 PT INR Sodium 137 Potassium 4.4 Chloride 103 Carbon Dioxide 23 Anion Gap 15.4 H BUN 30 H Creatinine 1.53 H Estimated GFR 46.0 Glucose 211 H POC Glucometer Lactic Acid 1.4 Calcium 10.4 H Magnesium 1.9 Total Bilirubin 1.20 AST 33 ALT 19 Alkaline Phosphatase 56 Troponin I NT-Pro-B Natriuret Pep 119 Serum Total Protein 6.7 Albumin 4.0 Amylase 52 Lipase 148 Urinalys Dipstick Clnc Urine Color Urine Appearance Urine pH Ur Specific [place] POC Urine Protein Conf Urine Ketones Urine Nitrite Urine Bilirubin Urine Urobilinogen Urine Leukocytes Urine WBC (Auto) Urine RBC (Auto) U Epithel Cells (Auto) Urine Bacteria (Auto) Urine RBC Urine Mucus (Auto) Ur Culture Indicated? Urine Glucose Influenza Type A Ag Influenza Type B Ag RSV (PCR) SARS-CoV-2 (PCR) Orders (Last 24 hours) Category Date Time Status Up With Assistance ROUTINE Activity 10/29/21 19:59 Active Code Status Order ROUTINE Care 10/29/21 19:59 Active IV Care Q6H Care 10/29/21 19:59 Active Neuro Checks Q4H Care 10/29/21 19:59 Completed Orthostatic Vital Signs STAT Care 10/29/21 15:52 Completed POCT Glucose Check ACHS Care 10/29/21 19:[address] in Observation ROUTINE Care 10/29/21 19:59 Active Francisco ContrerasAshley ROUTINE Care 10/29/21 19:59 Active Telemetry q6h Care 10/29/21 19:59 Active Vital Signs Q4H Care 10/29/21 19:59 Active Weight,Daily 0600 Care 10/29/21 19:59 Active Motor Overhauler/Discharge Plan ROUTINE Cons 10/29/21 20:48 Active Low Sodium (1.5-2gram Sodium) Diet 10/29/21 Dinner Active Nutritional Admission Screen ONCE Diet 10/29/21 20:48 Active CHEST 1 VIEW (PORTABLE) Stat Exams 10/29/21 15:50 Completed HEAD WITHOUT CONTRAST [CT] Stat Exams 10/29/21 15:53 Completed AMYLASE Stat Lab 10/29/21 16:03 Completed CBC W DIFF AM.LAB Lab 10/30/21 04:30 Completed CBC W DIFF Stat Lab 10/29/21 16:03 Completed CMP AM.LAB Lab 10/30/21 04:30 Completed CMP Stat Lab 10/29/21 16:03 Completed COVID/FLU/RSV Panel Stat Lab 10/29/21 18:00 Completed Erythrocyte Sedimentation Rate Stat Lab 10/29/21 16:03 Completed LIPASE Stat Lab 10/29/21 16:03 Completed Lactic Acid Stat Lab 10/29/21 16:00 Completed MAGNESIUM Stat Lab 10/29/21 16:03 Completed NT PRO BNP Stat Lab 10/29/21 16:03 Completed POCT GLUCOSE Stat Lab 10/29/21 20:58 Completed POCT GLUCOSE Stat Lab 10/30/21 08:01 Completed PROTIME WITH INR Stat Lab 10/29/21 16:03 Completed TROPONIN Q3H Lab 10/29/21 16:03 Completed TROPONIN Q3H Lab 10/29/21 19:15 Completed TROPONIN Q3H Lab 10/29/21 22:15 Completed TROPONIN Q3H Lab 10/30/21 01:00 Completed TROPONIN Q3H Lab 10/30/21 04:30 Completed UA W/RFX CULTURE Stat Lab 10/29/21 17:32 Completed Acetaminophen 500 mg [Tylenol Extra Strength 500 mg* Med 10/30/21 07:31 Active ] 500 - 1,000 mg PO BID PRN PRN Aspirin EC 81 mg [Ecotrin 81 mg] Med 10/30/21 10:00 Active 81 mg PO DAILY Carvedilol 3.125 mg [Coreg 3.125 MG] Med 10/29/21 22:00 Active 3.125 mg PO BID Clopidogrel Bisulfate 75 mg [PLAVIX 75 MG Tablet] Med 10/30/21 10:00 Active 75 mg PO DAILY Ferrous Sulfate 325 mg [Feosol 325 mg] Med 10/30/21 10:00 Active 325 mg PO DAILY Folic Acid 1 mg [Folate 1 mg] Med 10/30/21 10:00 Active 1 mg PO DAILY Folic Acid/Vitamin B Comp W-C* [Foltx (Folbic)] Med 10/30/21 10:00 Active 1 tab PO BID Glimepiride 2 mg [Amaryl 2 MG] Med 10/30/21 08:00 Active 2 mg PO DAILY@0800 Hydrocodone/APAP 5/325 [[place] 5/325 mg] Med 10/30/21 07:31 Active 1 tab PO Q6HPRN PRN Insulin Lispro [Insulin Lispro Kwikpen U-100] Med 10/30/21 11:30 Ordered 100 unit SQ AC Isosorbide Mononitrate 30 mg [Imdur 30 MG] Med 10/30/21 10:00 Active 30 mg PO DAILY Lisinopril 20 mg [Zestril 20 MG] 20 mg Med 10/30/21 10:00 Active Hydrochlorothiazide 25 mg [hydroDIURIL 25 MG] 25 mg PO DAILY Metformin HCl Xr 500 mg [Glucophage XR 500 MG] Med 10/29/21 22:00 Active 1,000 mg PO BIDWM NaCl 0.9% 1000 ml [Sodium Chloride 0.9% 1000 ML] 1,000 Med 10/29/21 16:01 Discontinued ml .ROUTE UD NaCl 0.9% 1000 ml [Sodium Chloride 0.9% 1000 ML] 1,000 Med 10/29/21 16:00 Discontinued ml IV 100 mls/hr Oxybutynin Chloride Xl 5 mg [Ditropan XL 5 MG] Med 10/30/21 10:00 Active 5 mg PO DAILY PANTOPRAZOLE 40 mg Tablet [Protonix 40MG Tablet] Med 10/30/21 10:00 Active 40 mg PO QAM Potassium Chloride 10 Meq Tab* [Klor Con 10 MEQ] Med 10/29/21 22:00 Active 10 meq PO BID Simvastatin 10 mg [Zocor 10MG] Med 10/30/21 10:00 Active 10 mg PO DAILY Tamsulosin HCl 0.4 mg [Flomax 0.4 MG] Med 10/30/21 10:00 Active 0.4 mg PO DAILY Vitamin E 400 Units [Vitamin E 400 UNIT SOFTGEL] Med 10/30/21 10:00 Active 400 u PO BID Zolpidem Tartrate 5 mg [Ambien 5 MG Tablet] Med 10/30/21 22:00 Active 5 mg PO HS Zolpidem Tartrate 5 mg [Ambien 5 MG Tablet] Med 10/29/21 22:48 Discontinued 5 mg PO HS PRN PRN Respiratory Therapy Consult ROUTINE RT 10/29/21 19:59 Completed Patient Care Notes (Last 24 hours) 10/29/21 20:34 Respiratory Note by Megha Wan PT HAS NO PULMONARY HX. NO HOME THERAPY Initialized on 10/29/21 20:34 - END OF NOTE Code(s): R55 - SYNCOPE AND COLLAPSE (2) Type 2 diabetes mellitus Current Visit: Yes Status: Chronic Qualifiers: Diabetes mellitus fdc insulin use: without fdc use Diabetes me llitus complication detail: with autonomic neuropathy (3) Acute on chronic renal failure Current Visit: Yes Status: Chronic Qualifiers: Acute renal failure type: unspecified Chronic kidney disease stage: stage 4 (severe) Qualified Code(s): N17.9 - Acute kidney failure, unspecified; N18.4 - Chronic kidney disease, stage 4 (severe) Code(s): N17.9 - ACUTE KIDNEY FAILURE, UNSPECIFIED; N18.9 - CHRONIC KIDNEY DISEASE, UNSPECIFIED
[2021-10-30] MEDS ORDERED: NON-FORMULARY ITEM (Insulin Lispro [Insulin Lispro Kwikpen U-100] 100 UNIT/ML Insuln.Pen) SQ SCH (11:30)
[2021-10-30 12:11] VITALS: BP 166/73; PULSE 62; O2SAT 95
--- NOTE | 2021-10-30 14:49 | PCM.DS ---
Discharge Summary Date of Admission: 10/29/21 19:56 Admitting Physician: TIMOTHY PONCE Primary Care Provider: TIMOTHY PONCE Allergies Allergies No Known Drug Allergies Allergy (Verified 10/29/21 15:42) Hospital Summary - Hospital Course Hospital Course: Chief Complaint Diagnosis passed out 2-3 times at home Allergies Allergy/AdvReac Type Severity Reaction Status Date / Time No Known Drug Allergies Allergy Verified 10/29/21 15:42 Vital Signs (Last 24 hours) Temp Pulse Resp BP Pulse Ox 10/30/21 12:00 97.9 F 62 18 166/73 95 10/30/21 08:00 97.9 F 58 L 18 144/66 94 L 10/30/21 04:00 97.7 F 58 L 15 145/78 93 L 10/30/21 00:00 18 10/29/21 23:34 98.9 F 56 L 25 H 165/79 96 10/29/21 20:24 98.9 F 56 L 25 H 165/79 96 10/29/21 19:02 68 18 192/82 98 10/29/21 18:03 59 L 18 138/73 97 10/29/21 17:57 94 L 10/29/21 17:05 65 18 126/69 94 L 10/29/21 16:49 18 96 Home Medications Medication Instructions Recorded Confirmed Last Taken Type Hydrocodone/Acetaminophen 1 tab PO Q6HPRN PRN MDD 4 10/29/21 10/29/21 Unknown History [Hydrocodone-Acetamin 5-325 mg] Insulin Lispro [Insulin Lispro 100 unit SQ AC 10/29/21 10/29/21 Unknown History Kwikpen U-100] PANTOPRAZOLE 40 mg Tablet 40 mg PO QAM 10/29/21 10/29/21 Unknown History [Protonix 40MG Tablet] Simvastatin 10 mg [Zocor 10MG] 10 mg PO DAILY 10/29/21 10/29/21 Unknown History Zolpidem Tartrate 5 mg [Ambien 5 5 mg PO HS 10/29/21 10/29/21 Unknown History MG Tablet] Current Medications Discontinued Medications Generic Name Dose Route Start Last Admin Trade Name Freq PRN Reason Stop Dose Admin Acetaminophen 500 - 1,000 mg 10/30/21 07:31 Acetaminophen 500 Mg Tablet PO 05/31/22 07:30 BID PRN PRN PAIN AND/OR FEVER Hydrocodone Bitart/Acetaminophen 1 tab 10/30/21 07:31 Hydrocodone/Apap 5/325 Mg Tablet PO 11/04/21 07:30 Q6HPRN PRN PAIN Aspirin 81 mg 10/30/21 10:00 10/30/21 09:50 Aspirin 81 Mg Tablet.Ec PO 11/29/21 09:59 81 mg DAILY ART Administration Carvedilol 3.125 mg 10/29/21 22:00 10/30/21 09:51 Carvedilol 3.125 Mg Tablet PO 11/28/21 21:59 3.125 mg BID ART Administration Clopidogrel Bisulfate 75 mg 10/30/21 10:00 10/30/21 09:49 Clopidogrel Bisulfate 75 Mg Tablet PO 11/29/21 09:59 75 mg DAILY ART Administration Lisinopril 20 mg/ 0 mg 10/30/21 10:00 10/30/21 09:50 Hydrochlorothiazide 25 mg PO 11/29/21 09:59 20 mg DAILY ART Administration Ferrous Sulfate 325 mg 10/30/21 10:00 10/30/21 09:51 Ferrous Sulfate 325 Mg Tablet PO 11/29/21 09:59 325 mg DAILY ART Administration Folic Acid 1 mg 10/30/21 10:00 10/30/21 09:49 Folic Acid 1 Mg Tablet PO 11/29/21 09:59 1 mg DAILY ART Administration Folic Acid 1 tab 10/30/21 10:00 10/30/21 09:51 Folic Acid/Vitamin B Comp W-C 1 Tab Tab PO 11/29/21 09:59 1 tab BID ART Administration Glimepiride 2 mg 10/30/21 08:00 10/30/21 07:52 Glimepiride 2 Mg Tablet PO 11/29/21 07:59 2 mg DAILY@0800 ART Administration Sodium Chloride 1,000 mls @ 100 mls/hr 10/29/21 16:00 10/29/21 16:02 Sodium Chloride 0.9% 1000 Ml IV 11/28/21 15:59 100 mls/hr .Q10H ART Administration Sodium Chloride Confirm 10/29/21 16:01 Sodium Chloride 0.9% 1000 Ml Administered 10/29/21 16:02 Dose 1,000 mls @ ud .ROUTE .STK-MED ONE Isosorbide Mononitrate 30 mg 10/30/21 10:00 10/30/21 09:49 Isosorbide Mononitrate 30 Mg Tab PO 11/29/21 09:59 30 mg DAILY ART Administration Metformin HCl 1,000 mg 10/29/21 22:00 10/30/21 07:52 Metformin Hcl Er 500 Mg Tab PO 11/28/21 21:59 1,000 mg BIDWM ART Administration Oxybutynin Chloride 5 mg 10/30/21 10:00 10/30/21 09:49 Oxybutynin Chloride Xl 5 Mg Tab PO 11/29/21 09:59 5 mg DAILY ART Administration Pantoprazole Sodium 40 mg 10/30/21 10:00 10/30/21 09:50 Protonix (Pantoprazole) 40 Mg Tablet PO 11/29/21 09:59 40 mg QAM ART Administration Potassium Chloride 10 meq 10/29/21 22:00 10/30/21 09:50 Potassium Chloride 10 Meq Tablet PO 11/28/21 21:59 10 meq BID ART Administration Simvastatin 10 mg 10/30/21 10:00 10/30/21 09:49 Simvastatin 10 Mg Tablet PO 11/29/21 09:59 10 mg DAILY ART Administration Tamsulosin HCl 0.4 mg 10/30/21 10:00 10/30/21 09:49 Tamsulosin Hcl 0.4 Mg Cap PO 11/29/21 09:59 0.4 mg DAILY ART Administration Vitamin E 400 u 10/30/21 10:00 10/30/21 09:52 Vitamin E 400 Iu Softgel PO 11/29/21 09:59 400 u BID ART Administration Zolpidem Tartrate 5 mg 10/29/21 22:48 10/29/21 23:08 Zolpidem Tartrate 5 Mg Tab PO 11/28/21 22:47 5 mg HS PRN PRN Administration INSOMNIA Zolpidem Tartrate 5 mg 10/30/21 22:00 Zolpidem Tartrate 5 Mg Tab PO 11/29/21 21:59 HS ART Intake & Output (Last 24 hours) 10/28/21 10/29/21 10/30/21 10/31/21 11:59 11:59 11:59 11:59 Intake Total 1160 580 Output Total 1050 400 Balance 110 180 Weight 73.7 kg Laboratory Results (Last 24 hours) 10/30/21 10/30/21 10/30/21 11:50 08:01 04:30 WBC RBC Hgb Hct MCV MCH MCHC RDW Plt Count MPV Gran % Eos # (Auto) Absolute Lymphs (auto) Absolute Monos (auto) Lymphocytes % Monocytes % Eosinophils % Basophils % Absolute Granulocytes Basophils # ESR PT INR Sodium 137 Potassium 3.6 Chloride 105 Carbon Dioxide 24 Anion Gap 12.0 BUN 26 H Creatinine 1.48 H Estimated GFR 47.8 Glucose 225 H POC Glucometer 162 H 185 H Lactic Acid Calcium 9.8 Magnesium Total Bilirubin 0.80 AST 25 ALT 19 Alkaline Phosphatase 56 Troponin I NT-Pro-B Natriuret Pep Serum Total Protein 6.2 L Albumin 3.5 Amylase Lipase Urinalys Dipstick Clnc Urine Color Urine Appearance Urine pH Ur Specific [place] POC Urine Protein Conf Urine Ketones Urine Nitrite Urine Bilirubin Urine Urobilinogen Urine Leukocytes Urine WBC (Auto) Urine RBC (Auto) U Epithel Cells (Auto) Urine Bacteria (Auto) Urine RBC Urine Mucus (Auto) Ur Culture Indicated? Urine Glucose Influenza Type A Ag Influenza Type B Ag RSV (PCR) SARS-CoV-2 (PCR) 10/30/21 10/30/21 10/30/21 04:30 04:30 01:00 WBC 5.7 RBC 4.41 Hgb 14.4 Hct 42.8 MCV 97.1 MCH 32.7 H MCHC 33.6 RDW 13.4 Plt Count 181 MPV 10.6 Gran % 58.1 Eos # (Auto) 0.25 Absolute Lymphs (auto) 1.45 Absolute Monos (auto) 0.66 Lymphocytes % 25.4 Monocytes % 11.6 Eosinophils % 4.4 Basophils % 0.5 Absolute Granulocytes 3.32 Basophils # 0.03 ESR PT INR Sodium Potassium Chloride Carbon Dioxide Anion Gap BUN Creatinine Estimated GFR Glucose POC Glucometer Lactic Acid Calcium Magnesium Total Bilirubin AST ALT Alkaline Phosphatase Troponin I 0.028 0.024 NT-Pro-B Natriuret Pep Serum Total Protein Albumin Amylase Lipase Urinalys Dipstick Clnc Urine Color Urine Appearance Urine pH Ur Specific [place] POC Urine Protein Conf Urine Ketones Urine Nitrite Urine Bilirubin Urine Urobilinogen Urine Leukocytes Urine WBC (Auto) Urine RBC (Auto) U Epithel Cells (Auto) Urine Bacteria (Auto) Urine RBC Urine Mucus (Auto) Ur Culture Indicated? Urine Glucose Influenza Type A Ag Influenza Type B Ag RSV (PCR) SARS-CoV-2 (PCR) 10/29/21 10/29/21 10/29/21 22:15 20:58 19:15 WBC RBC Hgb Hct MCV MCH MCHC RDW Plt Count MPV Gran % Eos # (Auto) Absolute Lymphs (auto) Absolute Monos (auto) Lymphocytes % Monocytes % Eosinophils % Basophils % Absolute Granulocytes Basophils # ESR PT INR Sodium Potassium Chloride Carbon Dioxide Anion Gap BUN Creatinine Estimated GFR Glucose POC Glucometer 182 H Lactic Acid Calcium Magnesium Total Bilirubin AST ALT Alkaline Phosphatase Troponin I 0.019 0.016 NT-Pro-B Natriuret Pep Serum Total Protein Albumin Amylase Lipase Urinalys Dipstick Clnc Urine Color Urine Appearance Urine pH Ur Specific [place] POC Urine Protein Conf Urine Ketones Urine Nitrite Urine Bilirubin Urine Urobilinogen Urine Leukocytes Urine WBC (Auto) Urine RBC (Auto) U Epithel Cells (Auto) Urine Bacteria (Auto) Urine RBC Urine Mucus (Auto) Ur Culture Indicated? Urine Glucose Influenza Type A Ag Influenza Type B Ag RSV (PCR) SARS-CoV-2 (PCR) 10/29/21 10/29/21 10/29/21 18:00 17:32 16:03 WBC RBC Hgb Hct MCV MCH MCHC RDW Plt Count MPV Gran % Eos # (Auto) Absolute Lymphs (auto) Absolute Monos (auto) Lymphocytes % Monocytes % Eosinophils % Basophils % Absolute Granulocytes Basophils # ESR PT INR Sodium Potassium Chloride Carbon Dioxide Anion Gap BUN Creatinine Estimated GFR Glucose POC Glucometer Lactic Acid Calcium Magnesium Total Bilirubin AST ALT Alkaline Phosphatase Troponin I 0.016 NT-Pro-B Natriuret Pep Serum Total Protein Albumin Amylase Lipase Urinalys Dipstick Clnc MAIN LAB Urine Color YELLOW Urine Appearance CLEAR Urine pH 6.0 Ur Specific [place] 1.025 POC Urine Protein Conf NEGATIVE Urine Ketones NEGATIVE Urine Nitrite NEGATIVE Urine Bilirubin NEGATIVE Urine Urobilinogen 1 Urine Leukocytes NEGATIVE Urine WBC (Auto) 0-2 Urine RBC (Auto) 0-2 U Epithel Cells (Auto) RARE Urine Bacteria (Auto) RARE Urine RBC NEGATIVE Urine Mucus (Auto) SLIGHT Ur Culture Indicated? NO Urine Glucose NEGATIVE Influenza Type A Ag NEGATIVE Influenza Type B Ag NEGATIVE RSV (PCR) NEGATIVE SARS-CoV-2 (PCR) NEGATIVE 10/29/21 10/29/21 10/29/21 16:03 16:03 16:03 WBC 7.1 RBC 4.52 Hgb 14.7 Hct 43.9 MCV 97.1 MCH 32.5 H MCHC 33.5 RDW 13.3 Plt Count 206 MPV 11.1 H Gran % 66.8 H Eos # (Auto) 0.16 Absolute Lymphs (auto) 1.54 Absolute Monos (auto) 0.65 Lymphocytes % 21.6 L Monocytes % 9.1 Eosinophils % 2.2 Basophils % 0.3 Absolute Granulocytes 4.77 Basophils # 0.02 ESR 11 PT 11.8 INR 1.00 Sodium 137 Potassium 4.4 Chloride 103 Carbon Dioxide 23 Anion Gap 15.4 H BUN 30 H Creatinine 1.53 H Estimated GFR 46.0 Glucose 211 H POC Glucometer Lactic Acid Calcium 10.4 H Magnesium 1.9 Total Bilirubin 1.20 AST 33 ALT 19 Alkaline Phosphatase 56 Troponin I NT-Pro-B Natriuret Pep 119 Serum Total Protein 6.7 Albumin 4.0 Amylase 52 Lipase 148 Urinalys Dipstick Clnc Urine Color Urine Appearance Urine pH Ur Specific [place] POC Urine Protein Conf Urine Ketones Urine Nitrite Urine Bilirubin Urine Urobilinogen Urine Leukocytes Urine WBC (Auto) Urine RBC (Auto) U Epithel Cells (Auto) Urine Bacteria (Auto) Urine RBC Urine Mucus (Auto) Ur Culture Indicated? Urine Glucose Influenza Type A Ag Influenza Type B Ag RSV (PCR) SARS-CoV-2 (PCR) 10/29/21 16:00 WBC RBC Hgb Hct MCV MCH MCHC RDW Plt Count MPV Gran % Eos # (Auto) Absolute Lymphs (auto) Absolute Monos (auto) Lymphocytes % Monocytes % Eosinophils % Basophils % Absolute Granulocytes Basophils # ESR PT INR Sodium Potassium Chloride Carbon Dioxide Anion Gap BUN Creatinine Estimated GFR Glucose POC Glucometer Lactic Acid 1.4 Calcium Magnesium Total Bilirubin AST ALT Alkaline Phosphatase Troponin I NT-Pro-B Natriuret Pep Serum Total Protein Albumin Amylase Lipase Urinalys Dipstick Clnc Urine Color Urine Appearance Urine pH Ur Specific [place] POC Urine Protein Conf Urine Ketones Urine Nitrite Urine Bilirubin Urine Urobilinogen Urine Leukocytes Urine WBC (Auto) Urine RBC (Auto) U Epithel Cells (Auto) Urine Bacteria (Auto) Urine RBC Urine Mucus (Auto) Ur Culture Indicated? Urine Glucose Influenza Type A Ag Influenza Type B Ag RSV (PCR) SARS-CoV-2 (PCR) Orders (Last 24 hours) Category Date Time Status Up With Assistance ROUTINE Activity 10/29/21 19:59 Completed Code Status Order ROUTINE Care 10/29/21 19:59 Completed IV Care Q6H Care 10/29/21 19:59 Completed Neuro Checks Q4H Care 10/29/21 19:59 Completed Orthostatic Vital Signs STAT Care 10/29/21 15:52 Completed POCT Glucose Check ACHS Care 10/29/21 19:[address] in Observation ROUTINE Care 10/29/21 19:59 Completed Francisco Contreras, Apply ROUTINE Care 10/29/21 19:59 Completed Telemetry q6h Care 10/29/21 19:59 Completed Vital Signs Q4H Care 10/29/21 19:59 Completed Weight,Daily 0600 Care 10/29/21 19:59 Completed Carbon Blocks Press Operator/Discharge Plan ROUTINE Cons 10/29/21 20:48 Completed Low Sodium (1.5-2gram Sodium) Diet 10/29/21 Dinner Completed Nutritional Admission Screen ONCE Diet 10/29/21 20:48 Completed Discharge Routine Discharge 10/30/21 Ordered CHEST 1 VIEW (PORTABLE) Stat Exams 10/29/21 15:50 Completed HEAD WITHOUT CONTRAST [CT] Stat Exams 10/29/21 15:53 Completed AMYLASE Stat Lab 10/29/21 16:03 Completed CBC W DIFF AM.LAB Lab 10/30/21 04:30 Completed CBC W DIFF Stat Lab 10/29/21 16:03 Completed CMP AM.LAB Lab 10/30/21 04:30 Completed CMP Stat Lab 10/29/21 16:03 Completed COVID/FLU/RSV Panel Stat Lab 10/29/21 18:00 Completed Erythrocyte Sedimentation Rate Stat Lab 10/29/21 16:03 Completed LIPASE Stat Lab 10/29/21 16:03 Completed Lactic Acid Stat Lab 10/29/21 16:00 Completed MAGNESIUM Stat Lab 10/29/21 16:03 Completed NT PRO BNP Stat Lab 10/29/21 16:03 Completed POCT GLUCOSE Stat Lab 10/29/21 20:58 Completed POCT GLUCOSE Stat Lab 10/30/21 08:01 Completed POCT GLUCOSE Stat Lab 10/30/21 11:50 Completed PROTIME WITH INR Stat Lab 10/29/21 16:03 Completed TROPONIN Q3H Lab 10/29/21 16:03 Completed TROPONIN Q3H Lab 10/29/21 19:15 Completed TROPONIN Q3H Lab 10/29/21 22:15 Completed TROPONIN Q3H Lab 10/30/21 01:00 Completed TROPONIN Q3H Lab 10/30/21 04:30 Completed UA W/RFX CULTURE Stat Lab 10/29/21 17:32 Completed Acetaminophen 500 mg [Tylenol Extra Strength 500 mg* Med 10/30/21 07:31 Active ] 500 - 1,000 mg PO BID PRN PRN Aspirin EC 81 mg [Ecotrin 81 mg] Med 10/30/21 10:00 Active 81 mg PO DAILY Carvedilol 3.125 mg [Coreg 3.125 MG] Med 10/29/21 22:00 Discontinued 3.125 mg PO BID Clopidogrel Bisulfate 75 mg [PLAVIX 75 MG Tablet] Med 10/30/21 10:00 Active 75 mg PO DAILY Ferrous Sulfate 325 mg [Feosol 325 mg] Med 10/30/21 10:00 Active 325 mg PO DAILY Folic Acid 1 mg [Folate 1 mg] Med 10/30/21 10:00 Active 1 mg PO DAILY Folic Acid/Vitamin B Comp W-C* [Foltx (Folbic)] Med 10/30/21 10:00 Active 1 tab PO BID Glimepiride 2 mg [Amaryl 2 MG] Med 10/30/21 08:00 Active 2 mg PO DAILY@0800 Hydrocodone/APAP 5/325 [[place] 5/325 mg] Med 10/30/21 07:31 Active 1 tab PO Q6HPRN PRN Isosorbide Mononitrate 30 mg [Imdur 30 MG] Med 10/30/21 10:00 Active 30 mg PO DAILY Lisinopril 20 mg [Zestril 20 MG] 20 mg Med 10/30/21 10:00 Discontinued Hydrochlorothiazide 25 mg [hydroDIURIL 25 MG] 25 mg PO DAILY Metformin HCl Xr 500 mg [Glucophage XR 500 MG] Med 10/29/21 22:00 Discontinued 1,000 mg PO BIDWM NaCl 0.9% 1000 ml [Sodium Chloride 0.9% 1000 ML] 1,000 Med 10/29/21 16:01 Discontinued ml .ROUTE UD NaCl 0.9% 1000 ml [Sodium Chloride 0.9% 1000 ML] 1,000 Med 10/29/21 16:00 Discontinued ml IV 100 mls/hr Oxybutynin Chloride Xl 5 mg [Ditropan XL 5 MG] Med 10/30/21 10:00 Active 5 mg PO DAILY PANTOPRAZOLE 40 mg Tablet [Protonix 40MG Tablet] Med 10/30/21 10:00 Active 40 mg PO QAM Potassium Chloride 10 Meq Tab* [Klor Con 10 MEQ] Med 10/29/21 22:00 Active 10 meq PO BID Simvastatin 10 mg [Zocor 10MG] Med 10/30/21 10:00 Active 10 mg PO DAILY Tamsulosin HCl 0.4 mg [Flomax 0.4 MG] Med 10/30/21 10:00 Active 0.4 mg PO DAILY Vitamin E 400 Units [Vitamin E 400 UNIT SOFTGEL] Med 10/30/21 10:00 Active 400 u PO BID Zolpidem Tartrate 5 mg [Ambien 5 MG Tablet] Med 10/30/21 22:00 Active 5 mg PO HS Zolpidem Tartrate 5 mg [Ambien 5 MG Tablet] Med 10/29/21 22:48 Discontinued 5 mg PO HS PRN PRN Respiratory Therapy Consult ROUTINE RT 10/29/21 19:59 Completed Patient Care Notes (Last 24 hours) 10/30/21 13:54 Nursing Note by Ashlee Antonio Spoke with Lisa at [facility] and she confirmed that the pt does have a bed ready for him at their facility. Stated that they already have his info and that his family could bring him there upon his discharge. Family here to take pt. Initialized on 10/30/21 13:54 - END OF NOTE 10/29/21 20:34 Respiratory Note by Megha Wan PT HAS NO PULMONARY HX. NO HOME THERAPY Initialized on 10/29/21 20:34 - END OF NOTE - Vitals & Intake/Output Vital Signs: Vital Signs Temperature 97.9 F 10/30/21 12:00 Pulse Rate 62 10/30/21 12:00 Respiratory Rate 18 10/30/21 12:00 Blood Pressure 166/73 10/30/21 12:00 O2 Sat by Pulse Oximetry 95 10/30/21 12:00 Intake & Output: Intake & Output 10/28/21 10/29/21 10/30/21 10/31/21 11:59 11:59 11:59 11:59 Intake Total 1160 580 Output Total 1050 400 Balance 110 180 Weight 73.7 kg - Lab Result Diagrams: 10/30/21 04:30 10/30/21 04:30 Lab Results-Last 24 Hrs: Lab Results-Last 24 Hours 10/29/21 10/29/21 10/29/21 Range/Units 16:00 16:03 16:03 WBC 7.1 (4.0-10.5) K/mm3 RBC 4.52 (4.1-5.6) M/mm3 Hgb 14.7 (12.5-18.0) gm/dl Hct 43.9 (42-50) % MCV 97.1 (78-100) fl MCH 32.5 H (26-32) pg MCHC 33.5 (32-36) g/dl RDW 13.3 (11.5-14.0) % Plt Count 206 (150-450) K/mm3 MPV 11.1 H (7.5-11.0) fl Gran % 66.8 H (36.0-66.0) % Eos # (Auto) 0.16 (0-0.5) Absolute Lymphs (auto) 1.54 (1.0-4.6) Absolute Monos (auto) 0.65 (0.0-1.3) Lymphocytes % 21.6 L (24.0-44.0) % Monocytes % 9.1 (0.0-12.0) % Eosinophils % 2.2 (0.00-5.0) % Basophils % 0.3 (0.0-0.4) % Absolute Granulocytes 4.77 (1.4-6.9) Basophils # 0.02 (0-0.4) ESR 11 (0-15) mm/hr PT (9.4-12.5) SECONDS INR (0.8-3.0) Sodium 137 (137-145) mmol/L Potassium 4.4 (3.5-5.1) mmol/L Chloride 103 (98-107) mmol/L Carbon Dioxide 23 (22-30) mmol/L Anion Gap 15.4 H (5-15) MEQ/L BUN 30 H (9-20) mg/dL Creatinine 1.53 H (0.66-1.25) mg/dL Estimated GFR 46.0 ML/MIN Glucose 211 H (74-106) mg/dL POC Glucometer (74 to 106) mg/dL Lactic Acid 1.4 (0.4-2.0) Calcium 10.4 H (8.4-10.2) mg/dL Magnesium 1.9 (1.6-2.3) mg/dL Total Bilirubin 1.20 (0.2-1.3) mg/dL AST 33 (17-59) U/L ALT 19 (0-50) U/L Alkaline Phosphatase 56 (38-126) U/L Troponin I (0.000-0.034) ng/mL NT-Pro-B Natriuret Pep 119 (0-1800) pg/mL Serum Total Protein 6.7 (6.3-8.2) g/dL Albumin 4.0 (3.5-5.0) g/dL Amylase 52 (30-110) U/L Lipase 148 (23-300) U/L Urinalys Dipstick Clnc Urine Color (YELLOW) Urine Appearance (CLEAR) Urine pH (5-6) Ur Specific [place] (1.005-1.025) POC Urine Protein Conf (Negative) Urine Ketones (NEGATIVE) Urine Nitrite (NEGATIVE) Urine Bilirubin (NEGATIVE) Urine Urobilinogen (0-1) mg/dL Urine Leukocytes (NEGATIVE) Urine WBC (Auto) (0-5) /HPF Urine RBC (Auto) (0-2) /HPF U Epithel Cells (Auto) (FEW) /HPF Urine Bacteria (Auto) (NEGATIVE) /HPF Urine RBC (0-5) [place]/ul Urine Mucus (Auto) (NEGATIVE) /HPF Ur Culture Indicated? Urine Glucose (NEGATIVE) mg/dL Influenza Type A Ag (NEGATIVE) Influenza Type B Ag (NEGATIVE) RSV (PCR) (Negative) SARS-CoV-2 (PCR) (NEGATIVE) 10/29/21 10/29/21 10/29/21 Range/Units 16:03 16:03 17:32 WBC (4.0-10.5) K/mm3 RBC (4.1-5.6) M/mm3 Hgb (12.5-18.0) gm/dl Hct (42-50) % MCV (78-100) fl MCH (26-32) pg MCHC (32-36) g/dl RDW (11.5-14.0) % Plt Count (150-450) K/mm3 MPV (7.5-11.0) fl Gran % (36.0-66.0) % Eos # (Auto) (0-0.5) Absolute Lymphs (auto) (1.0-4.6) Absolute Monos (auto) (0.0-1.3) Lymphocytes % (24.0-44.0) % Monocytes % (0.0-12.0) % Eosinophils % (0.00-5.0) % Basophils % (0.0-0.4) % Absolute Granulocytes (1.4-6.9) Basophils # (0-0.4) ESR (0-15) mm/hr PT 11.8 (9.4-12.5) SECONDS INR 1.00 (0.8-3.0) Sodium (137-145) mmol/L Potassium (3.5-5.1) mmol/L Chloride (98-107) mmol/L Carbon Dioxide (22-30) mmol/L Anion Gap (5-15) MEQ/L BUN (9-20) mg/dL Creatinine (0.66-1.25) mg/dL Estimated GFR ML/MIN Glucose (74-106) mg/dL POC Glucometer (74 to 106) mg/dL Lactic Acid (0.4-2.0) Calcium (8.4-10.2) mg/dL Magnesium (1.6-2.3) mg/dL Total Bilirubin (0.2-1.3) mg/dL AST (17-59) U/L ALT (0-50) U/L Alkaline Phosphatase (38-126) U/L Troponin I 0.016 (0.000-0.034) ng/mL NT-Pro-B Natriuret Pep (0-1800) pg/mL Serum Total Protein (6.3-8.2) g/dL Albumin (3.5-5.0) g/dL Amylase (30-110) U/L Lipase (23-300) U/L Urinalys Dipstick Clnc MAIN LAB Urine Color YELLOW (YELLOW) Urine Appearance CLEAR (CLEAR) Urine pH 6.0 (5-6) Ur Specific [place] 1.025 (1.005-1.025) POC Urine Protein Conf NEGATIVE (Negative) Urine Ketones NEGATIVE (NEGATIVE) Urine Nitrite NEGATIVE (NEGATIVE) Urine Bilirubin NEGATIVE (NEGATIVE) Urine Urobilinogen 1 (0-1) mg/dL Urine Leukocytes NEGATIVE (NEGATIVE) Urine WBC (Auto) 0-2 (0-5) /HPF Urine RBC (Auto) 0-2 (0-2) /HPF U Epithel Cells (Auto) RARE (FEW) /HPF Urine Bacteria (Auto) RARE (NEGATIVE) /HPF Urine RBC NEGATIVE (0-5) [place]/ul Urine Mucus (Auto) SLIGHT (NEGATIVE) /HPF Ur Culture Indicated? NO Urine Glucose NEGATIVE (NEGATIVE) mg/dL Influenza Type A Ag (NEGATIVE) Influenza Type B Ag (NEGATIVE) RSV (PCR) (Negative) SARS-CoV-2 (PCR) (NEGATIVE) 10/29/21 10/29/21 10/29/21 Range/Units 18:00 19:15 20:58 WBC (4.0-10.5) K/mm3 RBC (4.1-5.6) M/mm3 Hgb (12.5-18.0) gm/dl Hct (42-50) % MCV (78-100) fl MCH (26-32) pg MCHC (32-36) g/dl RDW (11.5-14.0) % Plt Count (150-450) K/mm3 MPV (7.5-11.0) fl Gran % (36.0-66.0) % Eos # (Auto) (0-0.5) Absolute Lymphs (auto) (1.0-4.6) Absolute Monos (auto) (0.0-1.3) Lymphocytes % (24.0-44.0) % Monocytes % (0.0-12.0) % Eosinophils % (0.00-5.0) % Basophils % (0.0-0.4) % Absolute Granulocytes (1.4-6.9) Basophils # (0-0.4) ESR (0-15) mm/hr PT (9.4-12.5) SECONDS INR (0.8-3.0) Sodium (137-145) mmol/L Potassium (3.5-5.1) mmol/L Chloride (98-107) mmol/L Carbon Dioxide (22-30) mmol/L Anion Gap (5-15) MEQ/L BUN (9-20) mg/dL Creatinine (0.66-1.25) mg/dL Estimated GFR ML/MIN Glucose (74-106) mg/dL POC Glucometer 182 H (74 to 106) mg/dL Lactic Acid (0.4-2.0) Calcium (8.4-10.2) mg/dL Magnesium (1.6-2.3) mg/dL Total Bilirubin (0.2-1.3) mg/dL AST (17-59) U/L ALT (0-50) U/L Alkaline Phosphatase (38-126) U/L Troponin I 0.016 (0.000-0.034) ng/mL NT-Pro-B Natriuret Pep (0-1800) pg/mL Serum Total Protein (6.3-8.2) g/dL Albumin (3.5-5.0) g/dL Amylase (30-110) U/L Lipase (23-300) U/L Urinalys Dipstick Clnc Urine Color (YELLOW) Urine Appearance (CLEAR) Urine pH (5-6) Ur Specific [place] (1.005-1.025) POC Urine Protein Conf (Negative) Urine Ketones (NEGATIVE) Urine Nitrite (NEGATIVE) Urine Bilirubin (NEGATIVE) Urine Urobilinogen (0-1) mg/dL Urine Leukocytes (NEGATIVE) Urine WBC (Auto) (0-5) /HPF Urine RBC (Auto) (0-2) /HPF U Epithel Cells (Auto) (FEW) /HPF Urine Bacteria (Auto) (NEGATIVE) /HPF Urine RBC (0-5) [place]/ul Urine Mucus (Auto) (NEGATIVE) /HPF Ur Culture Indicated? Urine Glucose (NEGATIVE) mg/dL Influenza Type A Ag NEGATIVE (NEGATIVE) Influenza Type B Ag NEGATIVE (NEGATIVE) RSV (PCR) NEGATIVE (Negative) SARS-CoV-2 (PCR) NEGATIVE (NEGATIVE) 10/29/21 10/30/21 10/30/21 Range/Units 22:15 01:00 04:30 WBC (4.0-10.5) K/mm3 RBC (4.1-5.6) M/mm3 Hgb (12.5-18.0) gm/dl Hct (42-50) % MCV (78-100) fl MCH (26-32) pg MCHC (32-36) g/dl RDW (11.5-14.0) % Plt Count (150-450) K/mm3 MPV (7.5-11.0) fl Gran % (36.0-66.0) % Eos # (Auto) (0-0.5) Absolute Lymphs (auto) (1.0-4.6) Absolute Monos (auto) (0.0-1.3) Lymphocytes % (24.0-44.0) % Monocytes % (0.0-12.0) % Eosinophils % (0.00-5.0) % Basophils % (0.0-0.4) % Absolute Granulocytes (1.4-6.9) Basophils # (0-0.4) ESR (0-15) mm/hr PT (9.4-12.5) SECONDS INR (0.8-3.0) Sodium (137-145) mmol/L Potassium (3.5-5.1) mmol/L Chloride (98-107) mmol/L Carbon Dioxide (22-30) mmol/L Anion Gap (5-15) MEQ/L BUN (9-20) mg/dL Creatinine (0.66-1.25) mg/dL Estimated GFR ML/MIN Glucose (74-106) mg/dL POC Glucometer (74 to 106) mg/dL Lactic Acid (0.4-2.0) Calcium (8.4-10.2) mg/dL Magnesium (1.6-2.3) mg/dL Total Bilirubin (0.2-1.3) mg/dL AST (17-59) U/L ALT (0-50) U/L Alkaline Phosphatase (38-126) U/L Troponin I 0.019 0.024 0.028 (0.000-0.034) ng/mL NT-Pro-B Natriuret Pep (0-1800) pg/mL Serum Total Protein (6.3-8.2) g/dL Albumin (3.5-5.0) g/dL Amylase (30-110) U/L Lipase (23-300) U/L Urinalys Dipstick Clnc Urine Color (YELLOW) Urine Appearance (CLEAR) Urine pH (5-6) Ur Specific [place] (1.005-1.025) POC Urine Protein Conf (Negative) Urine Ketones (NEGATIVE) Urine Nitrite (NEGATIVE) Urine Bilirubin (NEGATIVE) Urine Urobilinogen (0-1) mg/dL Urine Leukocytes (NEGATIVE) Urine WBC (Auto) (0-5) /HPF Urine RBC (Auto) (0-2) /HPF U Epithel Cells (Auto) (FEW) /HPF Urine Bacteria (Auto) (NEGATIVE) /HPF Urine RBC (0-5) [place]/ul Urine Mucus (Auto) (NEGATIVE) /HPF Ur Culture Indicated? Urine Glucose (NEGATIVE) mg/dL Influenza Type A Ag (NEGATIVE) Influenza Type B Ag (NEGATIVE) RSV (PCR) (Negative) SARS-CoV-2 (PCR) (NEGATIVE) 10/30/21 10/30/21 10/30/21 Range/Units 04:30 04:30 08:01 WBC 5.7 (4.0-10.5) K/mm3 RBC 4.41 (4.1-5.6) M/mm3 Hgb 14.4 (12.5-18.0) gm/dl Hct 42.8 (42-50) % MCV 97.1 (78-100) fl MCH 32.7 H (26-32) pg MCHC 33.6 (32-36) g/dl RDW 13.4 (11.5-14.0) % Plt Count 181 (150-450) K/mm3 MPV 10.6 (7.5-11.0) fl Gran % 58.1 (36.0-66.0) % Eos # (Auto) 0.25 (0-0.5) Absolute Lymphs (auto) 1.45 (1.0-4.6) Absolute Monos (auto) 0.66 (0.0-1.3) Lymphocytes % 25.4 (24.0-44.0) % Monocytes % 11.6 (0.0-12.0) % Eosinophils % 4.4 (0.00-5.0) % Basophils % 0.5 (0.0-0.4) % Absolute Granulocytes 3.32 (1.4-6.9) Basophils # 0.03 (0-0.4) ESR (0-15) mm/hr PT (9.4-12.5) SECONDS INR (0.8-3.0) Sodium 137 (137-145) mmol/L Potassium 3.6 (3.5-5.1) mmol/L Chloride 105 (98-107) mmol/L Carbon Dioxide 24 (22-30) mmol/L Anion Gap 12.0 (5-15) MEQ/L BUN 26 H (9-20) mg/dL Creatinine 1.48 H (0.66-1.25) mg/dL Estimated GFR 47.8 ML/MIN Glucose 225 H (74-106) mg/dL POC Glucometer 185 H (74 to 106) mg/dL Lactic Acid (0.4-2.0) Calcium 9.8 (8.4-10.2) mg/dL Magnesium (1.6-2.3) mg/dL Total Bilirubin 0.80 (0.2-1.3) mg/dL AST 25 (17-59) U/L ALT 19 (0-50) U/L Alkaline Phosphatase 56 (38-126) U/L Troponin I (0.000-0.034) ng/mL NT-Pro-B Natriuret Pep (0-1800) pg/mL Serum Total Protein 6.2 L (6.3-8.2) g/dL Albumin 3.5 (3.5-5.0) g/dL Amylase (30-110) U/L Lipase (23-300) U/L Urinalys Dipstick Clnc Urine Color (YELLOW) Urine Appearance (CLEAR) Urine pH (5-6) Ur Specific [place] (1.005-1.025) POC Urine Protein Conf (Negative) Urine Ketones (NEGATIVE) Urine Nitrite (NEGATIVE) Urine Bilirubin (NEGATIVE) Urine Urobilinogen (0-1) mg/dL Urine Leukocytes (NEGATIVE) Urine WBC (Auto) (0-5) /HPF Urine RBC (Auto) (0-2) /HPF U Epithel Cells (Auto) (FEW) /HPF Urine Bacteria (Auto) (NEGATIVE) /HPF Urine RBC (0-5) Wicho/ul Urine Mucus (Auto) (NEGATIVE) /HPF Ur Culture Indicated? Urine Glucose (NEGATIVE) mg/dL Influenza Type A Ag (NEGATIVE) Influenza Type B Ag (NEGATIVE) RSV (PCR) (Negative) SARS-CoV-2 (PCR) (NEGATIVE) 10/30/21 Range/Units 11:50 WBC (4.0-10.5) K/mm3 RBC (4.1-5.6) M/mm3 Hgb (12.5-18.0) gm/dl Hct (42-50) % MCV (78-100) fl MCH (26-32) pg MCHC (32-36) g/dl RDW (11.5-14.0) % Plt Count (150-450) K/mm3 MPV (7.5-11.0) fl Gran % (36.0-66.0) % Eos # (Auto) (0-0.5) Absolute Lymphs (auto) (1.0-4.6) Absolute Monos (auto) (0.0-1.3) Lymphocytes % (24.0-44.0) % Monocytes % (0.0-12.0) % Eosinophils % (0.00-5.0) % Basophils % (0.0-0.4) % Absolute Granulocytes (1.4-6.9) Basophils # (0-0.4) ESR (0-15) mm/hr PT (9.4-12.5) SECONDS INR (0.8-3.0) Sodium (137-145) mmol/L Potassium (3.5-5.1) mmol/L Chloride (98-107) mmol/L Carbon Dioxide (22-30) mmol/L Anion Gap (5-15) MEQ/L BUN (9-20) mg/dL Creatinine (0.66-1.25) mg/dL Estimated GFR ML/MIN Glucose (74-106) mg/dL POC Glucometer 162 H (74 to 106) mg/dL Lactic Acid (0.4-2.0) Calcium (8.4-10.2) mg/dL Magnesium (1.6-2.3) mg/dL Total Bilirubin (0.2-1.3) mg/dL AST (17-59) U/L ALT (0-50) U/L Alkaline Phosphatase (38-126) U/L Troponin I (0.000-0.034) ng/mL NT-Pro-B Natriuret Pep (0-1800) pg/mL Serum Total Protein (6.3-8.2) g/dL Albumin (3.5-5.0) g/dL Amylase (30-110) U/L Lipase (23-300) U/L Urinalys Dipstick Clnc Urine Color (YELLOW) Urine Appearance (CLEAR) Urine pH (5-6) Ur Specific [place] (1.005-1.025) POC Urine Protein Conf (Negative) Urine Ketones (NEGATIVE) Urine Nitrite (NEGATIVE) Urine Bilirubin (NEGATIVE) Urine Urobilinogen (0-1) mg/dL Urine Leukocytes (NEGATIVE) Urine WBC (Auto) (0-5) /HPF Urine RBC (Auto) (0-2) /HPF U Epithel Cells (Auto) (FEW) /HPF Urine Bacteria (Auto) (NEGATIVE) /HPF Urine RBC (0-5) Wicho/ul Urine Mucus (Auto) (NEGATIVE) /HPF Ur Culture Indicated? Urine Glucose (NEGATIVE) mg/dL Influenza Type A Ag (NEGATIVE) Influenza Type B Ag (NEGATIVE) RSV (PCR) (Negative) SARS-CoV-2 (PCR) (NEGATIVE) Micro Results-Entire Visit: Accuchecks Date 10/30/21 Date 10/30/21 Time 12:11 Time 08:06 - Radiology Exams Ordered Rad Exams-Entire Visit: Radiology Procedures Category Date Time Status CHEST 1 VIEW (PORTABLE) Stat Exams 10/29/21 15:50 Completed HEAD WITHOUT CONTRAST [CT] Stat Exams 10/29/21 15:53 Completed - Procedures and Test Procedures and Tests throughout Hospitalization: Therapy Orders & Screens 10/29/21 19:59 Respiratory Therapy Consult ROUTINE Comment: Reason For Exam: Discharge Exam General Appearance: no apparent distress, alert Neurologic Exam: alert, oriented x 3, cooperative, normal mood/affect, nml cerebellar function, sensation nml, No motor deficits Eye Exam: PERRL, EOMI, eyes nml inspection Ears, Nose, Throat Exam: normal ENT inspection, pharynx normal, moist mucous membranes Neck Exam: normal inspection, non-tender, supple, full range of motion Respiratory Exam: normal breath sounds, lungs clear, No respiratory distress Cardiovascular Exam: regular rate/rhythm, normal heart sounds Gastrointestinal/Abdomen Exam: soft, No tenderness, No mass Male Genitalia Exam: deferred Rectal Exam: deferred Back Exam: normal inspection, normal range of motion, No CVA tenderness, No vertebral tenderness Extremity Exam: normal inspection, normal range of motion Skin Exam: normal color, warm, dry Final Diagnosis/Problem List - Final Discharge Diagnosis/Problem (1) Syncope Status: Resolved Code(s): R55 - SYNCOPE AND COLLAPSE (2) Type 2 diabetes mellitus Status: Chronic (3) Acute on chronic renal failure Status: Chronic Code(s): N17.9 - ACUTE KIDNEY FAILURE, UNSPECIFIED; N18.9 - CHRONIC KIDNEY DISEASE, UNSPECIFIED - Discharge Discharge Date: 10/30/21 Disposition: DC TO ANY "OTHER" DETENTION Condition: Good Prescriptions: Continue Aspirin [Aspir 81] 81 mg PO DAILY Isosorbide Mononitrate 30 mg [Imdur 30 MG] 30 mg PO DAILY Potassium Chloride 10 Meq Tab* [Klor Con 10 MEQ] 10 meq PO BID Carvedilol 6.25 mg [Coreg 6.25 MG] 3.125 mg PO BID Lisinopril/Hydrochlorothiazide [Lisinopril-Hctz 20-25 mg Tab] 20 - 25 mg PO DAILY Tamsulosin HCl 0.4 mg [Flomax 0.4 MG] 0.4 mg PO DAILY Oxybutynin Chloride [Oxybutynin Chloride ER] 5 mg PO DAILY Folic Acid 1 mg PO DAILY Acetaminophen 500 mg [Tylenol Extra Strength 500 mg] 500 - 1,000 mg PO BID PRN PRN PRN Reason: Pain And/Or Fever Clopidogrel Bisulfate 75 mg [PLAVIX 75 MG Tablet] 75 mg PO DAILY Vitamin E 100 unit PO BID Vit E/B1/B6/FA/B12/Ala/Coq10 [Folic-K Capsule] 1 ea PO BID Metformin HCl [Metformin ER Osmotic] 1 ea PO BID Glimepiride 2 mg [Amaryl 2 MG] 1 ea PO DAILY Ferrous Sulfate [Iron] 1 ea PO DAILY Hydrocodone/Acetaminophen [Hydrocodone-Acetamin 5-325 mg] 1 tab PO Q6HPRN PRN MDD 4 PRN Reason: Pain PANTOPRAZOLE 40 mg Tablet [Protonix 40MG Tablet] 40 mg PO QAM Simvastatin 10 mg [Zocor 10MG] 10 mg PO DAILY Zolpidem Tartrate 5 mg [Ambien 5 MG Tablet] 5 mg PO HS Insulin Lispro [Insulin Lispro Kwikpen U-100] 100 unit SQ AC Instructions: Syncope (Fainting) (DC) Additional Instructions: You have bed ready for you at [facility]. We have spoken with staff there and they said that they have a bed available for you whenever you are discharged from the hospital. Continue your home medications as you have been taking previously. Forms: Discharge Instructions
[2021-10-30] MEDS ORDERED: Ambien 5 MG Tablet PO SCH (22:00)
== END 2021-10-30 13:50 ==
LOC: ED 15:34 → MED SURG 19:56
PROVIDERS: ADMIT General Practice; ATTEND General Practice
DX: R55 Syncope and collapse (principal); E11.22 Type 2 diabetes mellitus with diabetic chronic kidney disease; I12.9 Hypertensive chronic kidney disease with stage 1 through stage 4 chronic kidney disease, or unspecified chronic kidney disease; N18.4 Chronic kidney disease, stage 4 (severe); N17.9 Acute kidney failure, unspecified; I25.10 Atherosclerotic heart disease of native coronary artery without angina pectoris; Z79.899 Other long term (current) drug therapy; Z20.828 Contact with and (suspected) exposure to other viral communicable diseases
CPT/HCPCS: 0241U; 36415; 70450; 71045; 80053; 81015; 82150; 82947; 83605; 83690; 83735; 83880; 84484; 85025; 85610; 85652; 93268; 99285; G0378; A9270-GY

== ENCOUNTER 2021-11-08 22:13 | Emergency (ER) | payer MEDICARE ==
[2021-11-08 22:56] VITALS: O2SAT 96
[2021-11-08 23:33] LABS: Appearance CLEAR (CLEAR)
[2021-11-08 23:35] LABS: Bilirubin NEGATIVE (NEGATIVE); Dipstick done @ ? MAIN LAB; Glucose NEGATIVE (NEGATIVE); Ketones NEGATIVE (NEGATIVE); Nitrite NEGATIVE (NEGATIVE); Protein,Urine Dip NEGATIVE (Negative); RBC NEGATIVE Ery/ul (0-5); Urobilinogen 0.2 mg/dL (0-1)
[2021-11-08 23:36] LABS: Mucus SLIGHT /HPF (NEGATIVE)
[2021-11-08 23:38] LABS: Urine Cultured Indicated? NO
[2021-11-08 23:45] LABS: ALBUMIN 3.7 g/dL (3.5-5.0); ANION GAP 15.4 MEQ/L (5-15); BILIRUBIN,TOTAL 0.9 mg/dL (0.2-1.3); Calcium 9.9 mg/dL (8.4-10.2); Creatinine 1 1.39 mg/dL (0.66-1.25); EST GLOMERULAR FILTRATION RATE 51.4 ML/MIN; Potassium 3.8 mmol/L (3.5-5.1); Total Protein 6.4 g/dL (6.3-8.2)
--- NOTE | 2021-11-08 23:55 | ERPHSYRPT ---
- History of Present Illness Time Seen by Provider: 11/08/21 22:20 Source: patient Exam Limitations: no limitations Patient Subjective Stated Complaint: Patient arrived with c/o pain to BLE and buttocks/coccyx area. Patient unable to state when pain started. He is a poor h istorian. When asked to rate his pain he stated, "well, it's not too bad now'" but was unable to rate pain using the number scale. Triage Nursing Assessment: Patient arrived by ambulance. He is alert and oriented to person and place but he can become confused to time and situation during discussion/assessment. Skin to buttocks/coccyx examined with no skin alterations noted. No s/s of pain noted. Physician History: Patient 36-year-old male presents to our ED via EMS from [facility]. Patient is experiencing intermittent rectal and lower abdominal pain. Patient feels bloated. Patient states he has not had a bowel movement in 3 to 4 days. residential administered a Nov[place] pill approximately 90 minutes prior to arrival for pain control. Patient states his pain is minimal at this time. Patient declined additional pain medication. at bedside. Symptoms are constant. Symptoms are moderate in intensity. No specific worsening or improving factors. No associated chest pain or shortness of breath. No nausea vomiting or diaphoresis. Patient's sister states that patient is either constipated or is experiencing significant diarrhea. Patient is constipated at this time. Patient voices no other complaints or concerns at this time. Timing/Duration: today Severity: moderate Modifying Factors: Improves With: nothing Associated Symptoms: denies symptoms, abdominal pain, No nausea, No vomiting, No chest pain, No fever, No malaise, No syncope, No seizure, No weakness Allergies/Adverse Reactions: No Known Drug Allergies Allergy (Verified 11/08/21 22:56) Home Medications: Aspirin [Aspir 81] 81 mg PO DAILY 07/23/12 [History] Isosorbide Mononitrate 30 mg [Imdur 30 MG] 30 mg PO DAILY 09/21/12 [History] Potassium Chloride 10 Meq Tab* [Klor Con 10 MEQ] 10 meq PO BID 09/21/12 [History] Carvedilol 6.25 mg [Coreg 6.25 MG] 3.125 mg PO BID 02/04/15 [History] Lisinopril/Hydrochlorothiazide [Lisinopril-Hctz 20-25 mg Tab] 20 - 25 mg PO DAILY 02/04/15 [History] Tamsulosin HCl 0.4 mg [Flomax 0.4 MG] 0.4 mg PO DAILY 08/08/17 [History] Acetaminophen 500 mg [Tylenol Extra Strength 500 mg] 500 - 1,000 mg PO BID PRN PRN 07/28/19 [History] Folic Acid 1 mg PO DAILY 07/28/19 [History] Oxybutynin Chloride [Oxybutynin Chloride ER] 5 mg PO DAILY 07/28/19 [History] Clopidogrel Bisulfate 75 mg [PLAVIX 75 MG Tablet] 75 mg PO DAILY 04/21/20 [History] Vitamin E 200 unit PO BID 08/01/20 [History] Ferrous Sulfate [Iron] 1 ea PO DAILY 09/22/21 [History] Glimepiride 2 mg [Amaryl 2 MG] 1 ea PO DAILY 09/22/21 [History] Metformin HCl [Metformin ER Osmotic] 1 ea PO BID 09/22/21 [History] Vit E/B1/B6/FA/B12/Ala/Coq10 [Folic-K Capsule] 1 ea PO BID 09/22/21 [History] Hydrocodone/Acetaminophen [Hydrocodone-Acetamin 5-325 mg] 1 tab PO Q6HPRN PRN MDD 4 10/29/21 [History] Insulin Lispro [Insulin Lispro Kwikpen U-100] 100 unit SQ AC 10/29/21 [History] PANTOPRAZOLE 40 mg Tablet [Protonix 40MG Tablet] 40 mg PO QAM 10/29/21 [Hi story] Simvastatin 10 mg [Zocor 10MG] 10 mg PO DAILY 10/29/21 [History] Zolpidem Tartrate 5 mg [Ambien 5 MG Tablet] 5 mg PO HS 10/29/21 [History] Hydrocodone/Acetaminophen [Hydrocodone-Acetamin 5-325 mg] 1 tab PO BID 11/08/21 [History] Hx Tetanus, Diphtheria Vaccination/Date Given: Yes Hx Influenza Vaccination/Date Given: Yes Hx Pneumococcal Vaccination/Date Given: Yes Immunizations Up to Date: Yes Travel Risk - International Travel Have you traveled outside of the country in past 3 weeks: No - Coronavirus Screening Are you exhibiting any of the following symptoms?: No Close contact with a COVID-19 positive Pt in past 14-21 Days: No - Vaccine Status Have you recieved a Covid-19 vaccination: Yes Dean Of Instruction: Unknown - Vaccination Dates Dates if Unknown: 11/2020 - Review of Systems Constitutional: No Symptoms, No Fever, No Chills Eyes: No Symptoms Ears, Nose, & Throat: No Symptoms Respiratory: No Symptoms, No Cough, No Dyspnea Cardiac: No Symptoms, No Chest Pain, No Edema, No Syncope Abdominal/Gastrointestinal: No Symptoms, No Abdominal Pain, No Nausea, No Vomiting, No Diarrhea Genitourinary Symptoms: No Symptoms, No Dysuria Musculoskeletal: No Symptoms, No Back Pain, No Neck Pain Skin: No Symptoms, No Rash Neurological: No Symptoms, No Dizziness, No Focal Weakness, No Sensory Changes Psychological: No Symptoms Endocrine: No Symptoms Hematologic/Lymphatic: No Symptoms Immunological/Allergic: No Symptoms All Other Systems: Reviewed and Negative - Past Medical History Pertinent Past Medical History: Yes Neurological History: TIA ENT History: No Pertinent History Cardiac History: Coronary Artery Disease, Hypertension, Other Respiratory History: No Pertinent History Endocrine Medical History: Diabetes Type II Musculoskeletal History: Arthritis GI Medical History: Diverticulosis, GERD, GI Bleed, Hernia History: Other Psycho-Social History: No Pertinent History Male Reproductive Disorders: Prostate Problems Other Medical History: Bladder spams, hyperlipidemia, insomnia - Past Surgical History Past Surgical History: Yes Neuro Surgical History: No Pertinent History Cardiac: Cardiac Catheterization, Cardiac Stent Respiratory: No Pertinent History Gastrointestinal: Hernia Repair Genitourinary: No Pertinent History Musculoskeletal: Orthopedic Surgery Male Surgical History: No Pertinent History Other Surgical History: Nasal surgery - Social History Smoking Status: Former smoker Exposure to second hand smoke: No Drug Use: none Patient Lives Alone: No (Retirement) Significant Family History: no pertinent family hx - Nursing Vital Signs Nursing Vital Signs: Initial Vital Signs Temperature 97.9 F 11/08/21 22:18 Pulse Rate 104 H 11/08/21 22:18 Respiratory Rate 17 11/08/21 22:18 Blood Pressure 166/81 11/08/21 22:18 O2 Sat by Pulse Oximetry 96 11/08/21 22:18 Pain Scale Pain Intensity 0 - Physical Exam General Appearance: no apparent distress, alert Eye Exam: PERRL/EOMI, eyes nml inspection Ears, Nose, Throat Exam: normal ENT inspection, TMs normal, pharynx normal, moist mucous membranes Neck Exam: normal inspection, non-tender, supple, full range of motion Respiratory Exam: normal breath sounds, lungs clear, airway intact, No chest tenderness, No respiratory distress Cardiovascular Exam: regular rate/rhythm, normal heart sounds, normal peripheral pulses Gastrointestinal/Abdomen Exam: soft, normal bowel sounds, other (Mildly distended abdomen.), No tenderness, No mass Back Exam: normal inspection, normal range of motion, No CVA tenderness, No vertebral tenderness Extremity Exam: normal inspection, normal range of motion, pelvis stable Neurologic Exam: alert, oriented x 3, cooperative, normal mood/affect, nml cerebellar function, nml station & gait, sensation nml, No motor deficits Skin Exam: normal color, warm, dry, No rash Lymphatic Exam: No adenopathy SpO2 Interpretation: normal SpO2: 96 O2 Delivery: Room Air - Course Nursing assessment & vital signs reviewed: Yes - CT Exams Abdomen/Pelvis CT Interpretation: Tele-radiologist Report ( Coronary artery calcification. Diffuse fatty liver. 7 cm simple left renal cyst. Simple right renal cyst. 1 mm left renal stone. Moderate diverticulosis. Moderate to severe degenerative spondylosis. No evidence of appendicitis. Atherosclerotic vascular calcifications. Moderate to severe ce) Ordered Tests: Active Orders 24 hr Category Date Time Status IV Insertion STAT Care 11/08/21 23:09 Active ABDOMEN AND PELVIS W/0 CONTRAS [CT] Stat Exams 11/08/21 23:10 Taken CBC W DIFF Stat Lab 11/08/21 23:25 Completed CMP Stat Lab 11/08/21 23:25 Completed TROPONIN Q3H Lab 11/08/21 23:25 Completed TROPONIN Q3H Lab 11/09/21 02:15 Ordered TROPONIN Q3H Lab 11/09/21 05:15 Ordered TROPONIN Q3H Lab 11/09/21 08:15 Ordered TROPONIN Q3H Lab 11/09/21 11:15 Ordered UA W/RFX CULTURE Stat Lab 11/08/21 23:25 Completed Lab/Rad Data: Laboratory Result Diagrams 11/08/21 23:25 11/08/21 23:25 Laboratory Results 11/08/21 11/08/21 11/08/21 Range/Units 23:25 23:25 23:25 WBC (4.0-10.5) K/mm3 RBC (4.1-5.6) M/mm3 Hgb (12.5-18.0) gm/dl Hct (42-50) % MCV (78-100) fl MCH (26-32) pg MCHC (32-36) g/dl RDW (11.5-14.0) % Plt Count (150-450) K/mm3 MPV (7.5-11.0) fl Gran % (36.0-66.0) % Eos # (Auto) (0-0.5) Absolute Lymphs (auto) (1.0-4.6) Absolute Monos (auto) (0.0-1.3) Lymphocytes % (24.0-44.0) % Monocytes % (0.0-12.0) % Eosinophils % (0.00-5.0) % Basophils % (0.0-0.4) % Absolute Granulocytes (1.4-6.9) Basophils # (0-0.4) Sodium 135 L (137-145) mmol/L Potassium 3.8 (3.5-5.1) mmol/L Chloride 102 (98-107) mmol/L Carbon Dioxide 22 (22-30) mmol/L Anion Gap 15.4 H (5-15) MEQ/L BUN 26 H (9-20) mg/dL Creatinine 1.39 H (0.66-1.25) mg/dL Estimated GFR 51.4 ML/MIN Glucose 252 H (74-106) mg/dL Calcium 9.9 (8.4-10.2) mg/dL Total Bilirubin 0.90 (0.2-1.3) mg/dL AST 24 (17-59) U/L ALT 28 (0-50) U/L Alkaline Phosphatase 68 (38-126) U/L Troponin I 0.020 (0.000-0.034) ng/mL Serum Total Protein 6.4 (6.3-8.2) g/dL Albumin 3.7 (3.5-5.0) g/dL Urinalys Dipstick Clnc MAIN LAB Urine Color YELLOW (YELLOW) Urine Appearance CLEAR (CLEAR) Urine pH 7.0 (5-6) Ur Specific [place] 1.020 (1.005-1.025) POC Urine Protein Conf NEGATIVE (Negative) Urine Ketones NEGATIVE (NEGATIVE) Urine Nitrite NEGATIVE (NEGATIVE) Urine Bilirubin NEGATIVE (NEGATIVE) Urine Urobilinogen 0.2 (0-1) mg/dL Urine Leukocytes NEGATIVE (NEGATIVE) Urine WBC (Auto) NONE (0-5) /HPF Urine RBC (Auto) NONE (0-2) /HPF U Epithel Cells (Auto) NONE (FEW) /HPF Urine Bacteria (Auto) NONE (NEGATIVE) /HPF Urine RBC NEGATIVE (0-5) Wicho/ul Urine Mucus (Auto) SLIGHT (NEGATIVE) /HPF Ur Culture Indicated? NO Urine Glucose NEGATIVE (NEGATIVE) mg/dL 11/08/21 Range/Units 23:25 WBC 12.3 H (4.0-10.5) K/mm3 RBC 4.39 (4.1-5.6) M/mm3 Hgb 14.3 (12.5-18.0) gm/dl Hct 42.1 (42-50) % MCV 95.9 (78-100) fl MCH 32.6 H (26-32) pg MCHC 34.0 (32-36) g/dl RDW 13.3 (11.5-14.0) % Plt Count 196 (150-450) K/mm3 MPV 10.9 (7.5-11.0) fl Gran % 84.7 H (36.0-66.0) % Eos # (Auto) 0.07 (0-0.5) Absolute Lymphs (auto) 0.90 L (1.0-4.6) Absolute Monos (auto) 0.89 (0.0-1.3) Lymphocytes % 7.3 L (24.0-44.0) % Monocytes % 7.2 (0.0-12.0) % Eosinophils % 0.6 (0.00-5.0) % Basophils % 0.2 (0.0-0.4) % Absolute Granulocytes 10.42 H (1.4-6.9) Basophils # 0.02 (0-0.4) Sodium (137-145) mmol/L Potassium (3.5-5.1) mmol/L Chloride (98-107) mmol/L Carbon Dioxide (22-30) mmol/L Anion Gap (5-15) MEQ/L BUN (9-20) mg/dL Creatinine (0.66-1.25) mg/dL Estimated GFR ML/MIN Glucose (74-106) mg/dL Calcium (8.4-10.2) mg/dL Total Bilirubin (0.2-1.3) mg/dL AST (17-59) U/L ALT (0-50) U/L Alkaline Phosphatase (38-126) U/L Troponin I (0.000-0.034) ng/mL Serum Total Protein (6.3-8.2) g/dL Albumin (3.5-5.0) g/dL Urinalys Dipstick Clnc Urine Color (YELLOW) Urine Appearance (CLEAR) Urine pH (5-6) Ur Specific [place] (1.005-1.025) POC Urine Protein Conf (Negative) Urine Ketones (NEGATIVE) Urine Nitrite (NEGATIVE) Urine Bilirubin (NEGATIVE) Urine Urobilinogen (0-1) mg/dL Urine Leukocytes (NEGATIVE) Urine WBC (Auto) (0-5) /HPF Urine RBC (Auto) (0-2) /HPF U Epithel Cells (Auto) (FEW) /HPF Urine Bacteria (Auto) (NEGATIVE) /HPF Urine RBC (0-5) Wicho/ul Urine Mucus (Auto) (NEGATIVE) /HPF Ur Culture Indicated? Urine Glucose (NEGATIVE) mg/dL - Progress Progress: improved Progress Note: Case discussed with Dr. Ponce who advises discharging back to half-way. Plan of care discussed with patient. He agrees with transfer back to half-way. He is has no active pain at this time. He voices no other complaints at this time. Portions of this note were created with voice recognition technology. There may be grammatical, spelling, punctuation or sound alike errors 11/09/21 01:25 Discussed with : Devan Will see patient in: other Counseled pt/family regarding: lab results, diagnosis, need for follow-up, rad results - Departure Departure Disposition: Home Clinical Impression: Leukocytosis, Hyponatremia, Creatinine elevation, Hyperglycemia, Coronary artery calcification, Fatty liver, Renal cyst, Nephrolithiasis, Moderate to severe central canal stenosi, Diverticulosis, Spondylosis Condition: Stable Critical Care Time: No Referrals: TIMOTHY PONCE MD [Primary Care Provider] - Follow up/PCP as directed Additional Instructions: Discharge/Care Plan KENYON OJEDA was seen on 11/09/21 in the Emergency Room. The patient was counseled regarding Diagnosis,Lab results, Imaging studies, need for follow up and when to return to the Emergency Room. Prescriptions given: Discharge Note I have spoken with the patient and/or caregivers. I have explained the patient's condition, diagnosis and treatment plan based on the information available to me at this time. I have answered the patient's and/or caregiver's questions and addressed any concerns. The patient and/or caregivers have as good understanding of the patient's diagnosis, condition and treatment plan as can be expected at this point. The vital signs have been stable. The patient's condition is stable and appropriate for discharge from the emergency department. The patient will pursue further outpatient evaluation with the primary care physician or other designated or consulting physician as outlined in the discharge instructions. The patient and/or caregivers are agreeable to this plan of care and follow-up instructions have been explained in detail. The patient and/or caregivers have received these instruction. The patient/and or caregivers are aware that any significant change in condition or worsening of symptoms should prompt an immediate return to this or the closest emergency department or call 911.
[2021-11-09 00:03] LABS: Absolute Neutrophil Ct (ANC) 10.42 (1.4-6.9); Basophil (Absolute #) 0.02 (0-0.4); Eosinophil % 0.6 % (0.00-5.0); Eosinophil (Absolute #) 0.07 (0-0.5); Hematocrit 42.1 % (42-50); Hemoglobin 14.3 gm/dl (12.5-18.0); Lymphocytes % 7.3 % (24.0-44.0); Mean Cell Volume 95.9 fl (78-100); Mean Corpuscular Hemoglobin 32.6 pg (26-32); Mean Platelet Volume 10.9 fl (7.5-11.0); Monocyte (Absolute #) 0.89 (0.0-1.3); Monocytes % 7.2 % (0.0-12.0); Neutrophil % 84.7 % (36.0-66.0); Platelet Count 196 K/mm3 (150-450); Red Blood Count 4.39 M/mm3 (4.1-5.6); Red Cell Distribution Width 13.3 % (11.5-14.0); White Blood Count 12.3 K/mm3 (4.0-10.5)
[2021-11-09 01:30] VITALS: PULSE 88
[2021-11-09 01:31] VITALS: BP 83/36
--- NOTE | 2021-11-09 09:13 | XRAY ---
Indication: Abdomen pain. Multiple contiguous axial images obtained through the abdomen and pelvis without contrast. Comparison: March 13, 2019. Lung bases again demonstrates bibasilar dependent atelectasis more than before. Stable tiny posterior left base calcified granuloma. Small right lower lobe subpleural bleb not previously imaged. Heart not enlarged. Noncontrasted stomach and bowel loops nonobstructed again with normal appendix. There remains mild diffuse scattered colonic diverticulosis without diverticulitis. Mild diffuse fecal stasis more than before with new mild rectal impaction. No free fluid/air. Again diffuse fatty hepatomegaly measuring 20 cm. Stable nonobstructing left renal punctate calculus and bilateral renal cysts. Remaining liver, gallbladder, pancreas, spleen, adrenal glands, kidneys, ureters, and bladder are unremarkable for noncontrast exam. Again moderate scattered aortoiliac calcifications without AAA. Osseous structures intact again with osteopenia, mild/moderate degenerative changes throughout the spine, mild degenerative changes both hips, and small right femur neck bone cyst. Stable small fatty right inguinal hernia. Impression: 1. Worsening mild diffuse fecal stasis with new mild rectal impaction. 2. Worsening bibasilar dependent atelectasis. 3. Again chronic findings including colonic diverticulosis, fatty hepatomegaly, nonobstructing left renal micro-calculus, bilateral renal cysts, arteriosclerotic disease, chronic bony findings, fatty right inguinal hernia, and old granulomatous disease. Comment: Preliminary interpretation made by C. No critical discrepancy.
== END 2021-11-09 01:45 | disposition home or self-care (01) ==
LOC: ED 22:13
DX: N20.0 Calculus of kidney (principal); D72.829 Elevated white blood cell count, unspecified; E87.1 Hypo-osmolality and hyponatremia; R94.4 Abnormal results of kidney function studies; I25.10 Atherosclerotic heart disease of native coronary artery without angina pectoris; K76.0 Fatty (change of) liver, not elsewhere classified; Q61.01 Congenital single renal cyst; K57.90 Diverticulosis of intestine, part unspecified, without perforation or abscess without bleeding; M47.9 Spondylosis, unspecified; E11.65 Type 2 diabetes mellitus with hyperglycemia; R10.30 Lower abdominal pain, unspecified; K62.89 Other specified diseases of anus and rectum; I10 Essential (primary) hypertension; Z79.01 Long term (current) use of anticoagulants; Z79.4 Long term (current) use of insulin; Z79.891 Long term (current) use of opiate analgesic; Z79.899 Other long term (current) drug therapy
CPT/HCPCS: 36415; 74176; 80053; 81015; 84484; 85025; 99284

== ENCOUNTER 2021-12-27 12:56 | Observation (INO) | payer MEDICARE ==
[2021-12-27] MEDS ORDERED: Sodium Chloride 0.9% 1000 ML 1,000 ML IV STA (13:08)
[2021-12-27 13:31] LABS: Absolute Neutrophil Ct (ANC) 3.51 x10^3/uL (1.4-6.9); Basophil (Absolute #) 0.02 x10^3/uL (0-0.4); Eosinophil % 2.6 % (0.00-5.0); Eosinophil (Absolute #) 0.16 x10^3/uL (0-0.5); Hematocrit 41.5 % (42-50); Hemoglobin 13.9 g/dL (12.5-18.0); Lymphocyte (Absolute #) 1.73 x10^3/uL (1.0-4.6); Lymphocytes % 28.5 % (24.0-44.0); Mean Cell Volume 97.4 fL (78-100); Mean Corpuscular Hemoglobin 32.6 pg (26-32); Mean Corpuscular Hgb Concent. 33.5 g/dL (32-36); Mean Platelet Volume 10.8 fL (7.5-11.0); Monocyte (Absolute #) 0.61 x10^3/uL (0.0-1.3); Monocytes % 10.1 % (0.0-12.0); Platelet Count 184 x10^3/uL (150-450); Red Blood Count 4.26 x10^6/uL (4.1-5.6); Red Cell Distribution Width 13.9 % (11.5-14.0); White Blood Count 6.1 x10^3/uL (4.0-10.5)
[2021-12-27] MEDS ORDERED: Sodium Chloride 0.9% 1000 ML 1,000 ML ONE (13:35)
--- NOTE | 2021-12-27 13:40 | XRAY ---
Indication: Syncopal episode. Comparison: October 29, 2021. Portable chest remains clear. Heart not enlarged. No new/acute findings.
[2021-12-27 13:45] LABS: PROTIME 10.6 SECONDS (9.4-12.5)
[2021-12-27 13:54] LABS: ALBUMIN 3.8 g/dL (3.5-5.0); ANION GAP 11.7 MEQ/L (5-15); Calcium 10.2 mg/dL (8.4-10.2); Creatinine 1 1.35 mg/dL (0.66-1.25); EST GLOMERULAR FILTRATION RATE 53.1 ML/MIN; MAGNESIUM 1.8 mg/dL (1.6-2.3); Potassium 4.6 mmol/L (3.5-5.1); Total Protein 6.7 g/dL (6.3-8.2)
--- NOTE | 2021-12-27 13:58 | ERPHSYRPT ---
- History of Present Illness Time Seen by Provider: 12/27/21 13:05 Source: patient Exam Limitations: clinical condition Patient Subjective Stated Complaint: C/O periods of dizziness and "blacking out" when sitting up too fast today. Denies falls or hitting head. Triage Nursing Assessment: Arrived to ED by ambulance. Patient is alert and oriented and answering questions appropriatelt. Patient is very talkative. No SOB. PERRL. Physician History: Patient is a 86-year-old male who says he blacks out when standing. The last time he visited the ER he was blacking out with standing at the refrigerator. At 6 AM this morning he reached for his Rollator and could not reach it and when he is set up to try to reach the right Rollator he passed out. When we try to set him up in bed he starts to yell and scream and shake and says he is going to pass out even though the head of his bed was already elevated and he was simply leaning forward a little bit. Witnessed: unwitnessed Prior Episodes: single episode today (He also had another episode as we try to do orthostatic blood pressures.) Timing/Duration: today Precipitating Factors: unknown Context: sitting, standing Loss of Consciousness: no loss of consciousness Charcter of event(s): almost passed out Allergies/Adverse Reactions: No Known Drug Allergies Allergy (Verified 12/27/21 12:59) Home Medications: Aspirin [Aspir 81] 81 mg PO DAILY 07/23/12 [History] Isosorbide Mononitrate 30 mg [Imdur 30 MG] 30 mg PO DAILY 09/21/12 [History] Potassium Chloride Tab* [Klor Con] 10 meq PO BID 09/21/12 [History] Carvedilol [Coreg ] 1 tab PO BID 02/04/15 [History] Lisinopril/Hydrochlorothiazide [Lisinopril-Hctz 20-25 mg Tab] 20 - 25 mg PO DAILY 02/04/15 [History] Tamsulosin HCl 0.4 mg [Flomax 0.4 MG] 0.4 mg PO DAILY 08/08/17 [History] Acetaminophen 500 mg [Tylenol Extra Strength 500 mg] 500 - 1,000 mg PO BID PRN PRN 07/28/19 [History] Folic Acid 1 mg PO DAILY 07/28/19 [History] Oxybutynin Chloride [Oxybutynin Chloride ER] 5 mg PO DAILY 07/28/19 [History] Clopidogrel Bisulfate [PLAVIX Tablet] 75 mg PO DAILY 04/21/20 [History] Vitamin E 200 unit PO BID 08/01/20 [History] Ferrous Sulfate [Iron] 1 ea PO DAILY 09/22/21 [History] Glimepiride 2 mg [Amaryl 2 MG] 1 ea PO DAILY 09/22/21 [History] Metformin HCl [Metformin ER Osmotic] 1 ea PO BID 09/22/21 [History] Zolpidem Tartrate 5 mg [Ambien 5 MG Tablet] 5 mg PO HS 10/29/21 [History] Omeprazole 1 cap PO DAILY 12/27/21 [History] Pravastatin Sodium 1 tab PO HS 12/27/21 [History] Sitagliptin Phosphate [Januvia] 100 mg PO DAILY 12/27/21 [History] Hx Tetanus, Diphtheria Vaccination/Date Given: Yes Hx Influenza Vaccination/Date Given: Yes Hx Pneumococcal Vaccination/Date Given: Yes Immunizations Up to Date: Yes Travel Risk - International Travel Have you traveled outside of the country in past 3 weeks: No - Coronavirus Screening Are you exhibiting any of the following symptoms?: No Close contact with a COVID-19 positive Pt in past 14-21 Days: No - Vaccine Status Have you recieved a Covid-19 vaccination: Yes Kennel Helper: Unknown - Vaccination Dates Dates if Unknown: 11/2020 - Past Medical History Pertinent Past Medical History: Yes Neurological History: TIA ENT History: No Pertinent History Cardiac History: Coronary Artery Disease, Hypertension Respiratory History: No Pertinent History Endocrine Medical History: Diabetes Type II Musculoskeletal History: Arthritis GI Medical History: GI Bleed History: No Pertinent History Psycho-Social History: No Pertinent History Male Reproductive Disorders: No Pertinent History Other Medical History: Bladder spams, hyperlipidemia, insomnia - Past Surgical History Past Surgical History: Yes Neuro Surgical History: No Pertinent History Cardiac: Cardiac Catheterization, Cardiac Stent Respiratory: No Pertinent History Gastrointestinal: Hernia Repair Genitourinary: No Pertinent History Musculoskeletal: Orthopedic Surgery Male Surgical History: No Pertinent History Other Surgical History: Nasal surgery - Social History Smoking Status: Former smoker Exposure to second hand smoke: No Drug Use: none Patient Lives Alone: Yes (Home from jail X 1 week) Significant Family History: no pertinent family hx - Review of Systems Constitutional: No Fever, No Chills Eyes: No Symptoms Ears, Nose, & Throat: No Symptoms Respiratory: No Cough, No Dyspnea Cardiac: No Chest Pain, No Edema, No Syncope Abdominal/Gastrointestinal: No Abdominal Pain, No Nausea, No Vomiting, No Diarrhea Genitourinary Symptoms: No Dysuria Musculoskeletal: No Back Pain, No Neck Pain Skin: No Rash Neurological: Dizziness, Other (Near syncope), No Focal Weakness, No Sensory Changes Psychological: No Symptoms Endocrine: No Symptoms All Other Systems: Reviewed and Negative Physical Exam - Nursing Vital Signs Nursing Vital Signs: Initial Vital Signs Pulse Rate 60 12/27/21 12:59 Respiratory Rate 18 12/27/21 12:59 Blood Pressure 192/87 12/27/21 12:59 O2 Sat by Pulse Oximetry 100 12/27/21 12:59 Pain Scale Pain Intensity 0 - [place] Coma Scale Best Eye Response ([place]): (4) open spontaneously Best Verbal Response ([place]): (5) oriented Best Motor Response ([place]): (6) obeys commands [place] Total: 15 - Physical Exam General Appearance: moderate distress, alert, anxiety Eye Exam: bilateral eye: PERRL, EOMI Ears, Nose, Throat Exam: normal ENT inspection, pharynx normal, moist mucous membranes Neck Exam: normal inspection Respiratory: normal breath sounds, airway intact, No respiratory distress Cardiovascular: regular rate/rhythm, normal heart sounds Gastrointestinal: soft, normal bowel sounds, No tenderness Back Exam: normal inspection, normal range of motion Extremity Exam: normal inspection, normal range of motion, pelvis stable, No tenderness Mental Status: alert, oriented x 3, agitated, 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: normal speech, PERRL, No facial droop Motor/Sensory: no motor deficit, no sensory deficit, no pronator drift Skin Exam: normal color, warm, dry SpO2 Interpretation: normal SpO2: 100 O2 Delivery: Room Air - Course Nursing assessment & vital signs reviewed: Yes EKG Interpreted by Me: RATE (57), Sinus Rhythm, NORMAL AXIS, NORMAL INTERVALS, Left Bundle Branch Block, Non-specific ST Changes - Radiology Exams Chest X-ray Interpretation: Negative Ordered Tests: Active Orders 24 hr Category Date Time Status EKG-ER Only STAT Care 12/27/21 13:08 Active IV Insertion STAT Care 12/27/21 13:08 Active Orthostatic Vital Signs STAT Care 12/27/21 13:08 Active CHEST 1 VIEW (PORTABLE) Stat Exams 12/27/21 13:09 Completed AMYLASE Stat Lab 12/27/21 13:00 Completed CBC W DIFF Stat Lab 12/27/21 13:00 Completed CMP Stat Lab 12/27/21 13:00 Completed Erythrocyte Sedimentation Rate Stat Lab 12/27/21 13:00 Completed LIPASE Stat Lab 12/27/21 13:00 Completed Lactic Acid Stat Lab 12/27/21 13:08 Completed MAGNESIUM Stat Lab 12/27/21 13:00 Completed NT PRO BNP Stat Lab 12/27/21 13:00 Completed PROTIME WITH INR Stat Lab 12/27/21 13:00 Completed TROPONIN Q3H Lab 12/27/21 13:00 Completed TROPONIN Q3H Lab 12/27/21 16:15 Ordered TROPONIN Q3H Lab 12/27/21 19:15 Ordered TROPONIN Q3H Lab 12/27/21 22:15 Ordered TROPONIN Q3H Lab 12/28/21 01:15 Ordered UA W/RFX CULTURE Stat Lab 12/27/21 13:40 Results Medication Summary Discontinued Medications Generic Name Dose Route Start Last Admin Trade Name Freq PRN Reason Stop Dose Admin Sodium Chloride 1,000 mls @ 999 mls/hr 12/27/21 13:08 12/27/21 14:42 Sodium Chloride 0.9% 1000 Ml IV 12/27/21 14:08 Infused .Q1H1M STA Infusion Sodium Chloride Confirm 12/27/21 13:35 Sodium Chloride 0.9% 1000 Ml Administered 12/27/21 13:36 Dose 1,000 mls @ ud .ROUTE .STK-MED ONE Lab/Rad Data: Laboratory Result Diagrams 12/27/21 13:00 12/27/21 13:00 Laboratory Results 12/27/21 12/27/21 12/27/21 Range/Units 13:40 13:08 13:00 WBC (4.0-10.5) x10^3/uL RBC (4.1-5.6) x10^6/uL Hgb (12.5-18.0) g/dL Hct (42-50) % MCV (78-100) fL MCH (26-32) pg MCHC (32-36) g/dL RDW (11.5-14.0) % Plt Count (150-450) x10^3/uL MPV (7.5-11.0) fL Gran % (36.0-66.0) % Immature Gran % (Auto) (0.00-0.4) % Nucleat RBC Rel Count (0.00-0.1) % Eos # (Auto) (0-0.5) x10^3/uL Immature Gran # (Auto) (0.00-0.03) x10^3u/L Absolute Lymphs (auto) (1.0-4.6) x10^3/uL Absolute Monos (auto) (0.0-1.3) x10^3/uL Absolute Nucleated RBC (0.00-0.01) x10^3u/L Lymphocytes % (24.0-44.0) % Monocytes % (0.0-12.0) % Eosinophils % (0.00-5.0) % Basophils % (0.0-0.4) % Absolute Granulocytes (1.4-6.9) x10^3/uL Basophils # (0-0.4) x10^3/uL ESR (0-15) mm/hr PT (9.4-12.5) SECONDS INR (0.8-3.0) Sodium (137-145) mmol/L Potassium (3.5-5.1) mmol/L Chloride (98-107) mmol/L Carbon Dioxide (22-30) mmol/L Anion Gap (5-15) MEQ/L BUN (9-20) mg/dL Creatinine (0.66-1.25) mg/dL Estimated GFR ML/MIN Glucose (74-106) mg/dL Lactic Acid 1.8 (0.4-2.0) Calcium (8.4-10.2) mg/dL Magnesium (1.6-2.3) mg/dL Total Bilirubin (0.2-1.3) mg/dL AST (17-59) U/L ALT (0-50) U/L Alkaline Phosphatase (38-126) U/L Troponin I < 0.012 (0.000-0.034) ng/mL NT-Pro-B Natriuret Pep (0-1800) pg/mL Serum Total Protein (6.3-8.2) g/dL Albumin (3.5-5.0) g/dL Amylase (30-110) U/L Lipase (23-300) U/L Urinalys Dipstick Clnc Pending Urine Color YELLOW (YELLOW) Urine Appearance CLEAR (CLEAR) Urine pH 5.5 (5-6) Ur Specific [place] 1.010 (1.005-1.025) POC Urine Protein Conf NEGATIVE (Negative) Urine Ketones NEGATIVE (NEGATIVE) Urine Nitrite NEGATIVE (NEGATIVE) Urine Bilirubin NEGATIVE (NEGATIVE) Urine Urobilinogen 0.2 (0-1) mg/dL Urine Leukocytes NEGATIVE (NEGATIVE) Urine WBC (Auto) 0-2 (0-5) /HPF U Epithel Cells (Auto) NONE (FEW) /HPF Urine RBC NEGATIVE (0-5) [place]/ul Urine Mucus (Auto) SLIGHT (NEGATIVE) /HPF Ur Culture Indicated? NO Urine Glucose NEGATIVE (NEGATIVE) mg/dL 12/27/21 12/27/21 12/27/21 Range/Units 13:00 13:00 13:00 WBC 6.1 (4.0-10.5) x10^3/uL RBC 4.26 (4.1-5.6) x10^6/uL Hgb 13.9 (12.5-18.0) g/dL Hct 41.5 L (42-50) % MCV 97.4 (78-100) fL MCH 32.6 H (26-32) pg MCHC 33.5 (32-36) g/dL RDW 13.9 (11.5-14.0) % Plt Count 184 (150-450) x10^3/uL MPV 10.8 (7.5-11.0) fL Gran % 58.0 (36.0-66.0) % Immature Gran % (Auto) 0.5 H (0.00-0.4) % Nucleat RBC Rel Count 0.0 (0.00-0.1) % Eos # (Auto) 0.16 (0-0.5) x10^3/uL Immature Gran # (Auto) 0.03 (0.00-0.03) x10^3u/L Absolute Lymphs (auto) 1.73 (1.0-4.6) x10^3/uL Absolute Monos (auto) 0.61 (0.0-1.3) x10^3/uL Absolute Nucleated RBC 0.00 (0.00-0.01) x10^3u/L Lymphocytes % 28.5 (24.0-44.0) % Monocytes % 10.1 (0.0-12.0) % Eosinophils % 2.6 (0.00-5.0) % Basophils % 0.3 (0.0-0.4) % Absolute Granulocytes 3.51 (1.4-6.9) x10^3/uL Basophils # 0.02 (0-0.4) x10^3/uL ESR 6 (0-15) mm/hr PT 10.6 (9.4-12.5) SECONDS INR 1.00 (0.8-3.0) Sodium 138 (137-145) mmol/L Potassium 4.6 (3.5-5.1) mmol/L Chloride 106 (98-107) mmol/L Carbon Dioxide 25 (22-30) mmol/L Anion Gap 11.7 (5-15) MEQ/L BUN 34 H (9-20) mg/dL Creatinine 1.35 H (0.66-1.25) mg/dL Estimated GFR 53.1 ML/MIN Glucose 104 (74-106) mg/dL Lactic Acid (0.4-2.0) Calcium 10.2 (8.4-10.2) mg/dL Magnesium 1.8 (1.6-2.3) mg/dL Total Bilirubin 1.00 (0.2-1.3) mg/dL AST 45 (17-59) U/L ALT 26 (0-50) U/L Alkaline Phosphatase 67 (38-126) U/L Troponin I (0.000-0.034) ng/mL NT-Pro-B Natriuret Pep 122 (0-1800) pg/mL Serum Total Protein 6.7 (6.3-8.2) g/dL Albumin 3.8 (3.5-5.0) g/dL Amylase 84 (30-110) U/L Lipase 162 (23-300) U/L Urinalys Dipstick Clnc Urine Color (YELLOW) Urine Appearance (CLEAR) Urine pH (5-6) Ur Specific [place] (1.005-1.025) POC Urine Protein Conf (Negative) Urine Ketones (NEGATIVE) Urine Nitrite (NEGATIVE) Urine Bilirubin (NEGATIVE) Urine Urobilinogen (0-1) mg/dL Urine Leukocytes (NEGATIVE) Urine WBC (Auto) (0-5) /HPF U Epithel Cells (Auto) (FEW) /HPF Urine RBC (0-5) [place]/ul Urine Mucus (Auto) (NEGATIVE) /HPF Ur Culture Indicated? Urine Glucose (NEGATIVE) mg/dL - Progress Progress: unchanged Discussed with : Devan Will see patient in: hospital (observation) - Departure Departure Disposition: Observation Clinical Impression: Symptomatic orthostatic increase in heart rate Condition: Fair Critical Care Time: No Referrals: TIMOTHY PONCE MD [Primary Care Provider] - Follow up/PCP as directed
[2021-12-27 14:09] LABS: Erythrocyte Sedimentation Rate 6 mm/hr (0-15)
[2021-12-27 14:12] LABS: Mucus SLIGHT /HPF (NEGATIVE); WBC 0-2 /HPF (0-5)
[2021-12-27 14:17] LABS: Appearance CLEAR (CLEAR); Bilirubin NEGATIVE (NEGATIVE); Glucose NEGATIVE (NEGATIVE); Ketones NEGATIVE (NEGATIVE); Ph 5.5 (5-6); Protein,Urine Dip NEGATIVE (Negative); RBC NEGATIVE Ery/ul (0-5); Urobilinogen 0.2 mg/dL (0-1)
[2021-12-27 14:18] LABS: Nitrite NEGATIVE (NEGATIVE); Urine Cultured Indicated? NO
[2021-12-27 14:50] LABS: Dipstick done @ ? MAIN LAB
[2021-12-27 15:39] LABS: INFLUENZA A NEGATIVE (NEGATIVE); INFLUENZA B NEGATIVE (NEGATIVE); RESPIRATORY SYNCTIAL VIRUS NEGATIVE (Negative); SARS-CoV-2 Xpert Express NEGATIVE (NEGATIVE)
[2021-12-27] MEDS ORDERED: TYLENOL EXTRA STRENGTH 500 MG PO PRN (17:24)
[2021-12-27] MEDS: Sodium Chloride 0.9% W/ 20 mEq KCl/LITER 1,000 ML IV SCH (18:51)
[2021-12-27] MEDS: Glucophage XR 500 MG PO SCH (21:08)
[2021-12-27] MEDS: Klor Con PO SCH (21:08)
[2021-12-27] MEDS: Coreg PO SCH (21:08)
[2021-12-27] MEDS: Zocor 10MG PO SCH (21:09)
[2021-12-27] MEDS ORDERED: NON-FORMULARY ITEM (Metformin Hcl [Metformin Er Osmotic] 1,000 MG Tab.Er.24) PO SCH (22:00)
[2021-12-27] MEDS ORDERED: NON-FORMULARY ITEM (Pravastatin Sodium [Pravastatin Sodium] 10 MG Tablet) PO SCH (22:00)
[2021-12-27] MEDS ORDERED: Ambien 5 MG Tablet PO SCH (22:00)
[2021-12-27] MEDS ORDERED: VITAMIN E 100 UNIT PO SCH (22:00)
[2021-12-28 05:17] LABS: Absolute Neutrophil Ct (ANC) 2.61 x10^3/uL (1.4-6.9); Basophil (Absolute #) 0.02 x10^3/uL (0-0.4); Eosinophil (Absolute #) 0.19 x10^3/uL (0-0.5); Hematocrit 38.6 % (42-50); Lymphocyte (Absolute #) 1.36 x10^3/uL (1.0-4.6); Lymphocytes % 28.6 % (24.0-44.0); Mean Cell Volume 96.7 fL (78-100); Mean Corpuscular Hemoglobin 32.6 pg (26-32); Mean Corpuscular Hgb Concent. 33.7 g/dL (32-36); Mean Platelet Volume 10.9 fL (7.5-11.0); Monocyte (Absolute #) 0.57 x10^3/uL (0.0-1.3); Neutrophil % 54.8 % (36.0-66.0); Platelet Count 171 x10^3/uL (150-450); Red Blood Count 3.99 x10^6/uL (4.1-5.6); Red Cell Distribution Width 13.9 % (11.5-14.0); White Blood Count 4.8 x10^3/uL (4.0-10.5)
[2021-12-28] MEDS: Sodium Chloride 0.9% W/ 20 mEq KCl/LITER 1,000 ML IV SCH (05:19)
[2021-12-28 05:33] LABS: ALBUMIN 3.1 g/dL (3.5-5.0); ANION GAP 13.1 MEQ/L (5-15); BILIRUBIN,TOTAL 0.6 mg/dL (0.2-1.3); Calcium 9.3 mg/dL (8.4-10.2); Creatinine 1 1.31 mg/dL (0.66-1.25); Total Protein 5.8 g/dL (6.3-8.2)
[2021-12-28] MEDS: Klor Con PO SCH ×2 (09:10→22:12)
[2021-12-28] MEDS: Zestril 20 MG PO SCH (09:10)
[2021-12-28] MEDS: Glucophage XR 500 MG PO SCH ×2 (09:10→22:12)
[2021-12-28] MEDS: Januvia 50 MG PO SCH (09:10)
[2021-12-28] MEDS: Imdur 30 MG PO SCH (09:10)
[2021-12-28] MEDS: ECOTRIN 81 MG PO SCH (09:10)
[2021-12-28] MEDS: Protonix 40MG Tablet PO SCH (09:10)
[2021-12-28] MEDS: hydroDIURIL 25 MG PO SCH (09:10)
[2021-12-28] MEDS: FOLATE 1 MG PO SCH (09:11)
[2021-12-28] MEDS: PLAVIX Tablet PO SCH (09:11)
[2021-12-28] MEDS: FEOSOL 325 MG PO SCH (09:11)
[2021-12-28] MEDS: Coreg PO SCH ×2 (09:11→18:18)
[2021-12-28] MEDS: Amaryl 2 MG PO SCH (09:11)
[2021-12-28] MEDS: Vitamin E 400 UNIT SOFTGEL PO SCH (09:11)
[2021-12-28] MEDS: Flomax 0.4 MG PO SCH (09:11)
[2021-12-28] MEDS ORDERED: NON-FORMULARY ITEM (Lisinopril/Hydrochlorothiazide [Lisinopril-Hctz 20-25 Mg Tab] 1 EACH T PO SCH (10:00)
[2021-12-28] MEDS ORDERED: FOLIC ACID 0.8 MG PO SCH (10:00)
[2021-12-28] MEDS ORDERED: Ditropan XL 5 MG PO SCH (10:00)
[2021-12-28] MEDS ORDERED: NON-FORMULARY ITEM (Omeprazole [Omeprazole] 40 MG Capsule.Dr) PO SCH (10:00)
--- NOTE | 2021-12-28 11:15 | XRAY ---
Exam: CT of the head without IV contrast CTDI: 53.92 mGy Comparison: CT of the head without IV contrast from 10/29/2021. Indication: 86-year-old male with syncope; blacking out when he sits up. Technique: Non-IV contrast axial images were obtained through the brain. Reconstructed coronal and sagittal images were created and reviewed. Findings: The ventricles, cortical sulci, and fissures are again enlarged consistent with global atrophy. No focal mass effect or midline shift is seen. No acute intracranial bleed or abnormal extra-axial fluid collection is seen. There are some low-attenuation densities within the left external capsule which do not appear appreciably changed from 10/29/2021 and are believed to be due to remote lacunar infarcts. A new low-attenuation density to suggest an acute major cerebral or cerebellar ischemic infarct is not seen. Atherosclerotic vascular calcification is seen within the carotid siphons and the vertebrobasilar arteries representing no change. There is a 3.3 cm in AP dimension and 1.5 cm in width expansile, oval-shaped right ethmoid soft tissue mass which appears relatively similar to the CT of the head from 10/29/2021. This mass measures +52.1 Hounsfield units. This mass is causing mild mass effect upon the medial rectus muscle of the right orbit on axial image #23. Again, I don't believe this is significantly changed. One may want to consider ENT consultation for further evaluation. There is also significant mucoperiosteal thickening within the right frontal sinus representing no change from 10/29/2021. The remainder the paranasal sinuses appear clear. The mastoid air cells are clear without effusion. The calvarium of the skull appears intact. Impression: 1. No acute intracranial bleed or other acute intracranial process is seen. 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 2. There is an expansile soft tissue mass within the right ethmoid sinus, as well as pronounced mucoperiosteal thickening throughout the frontal sinus to the right of midline, both representing no significant change from 10/30/2019. See above. Consider further evaluation with ENT consultation.
[2021-12-28] MEDS ORDERED: NORVASC 5 MG PO ONE (11:20)
[2021-12-28] MEDS: ZOLOFT 50 MG TABLET PO SCH (13:28)
[2021-12-28] MEDS ORDERED: Ativan 1 MG PO PRN (17:59)
[2021-12-28] MEDS ORDERED: COREG 12.5 MG ONE (18:11)
--- NOTE | 2021-12-28 18:22 | PCM.HP ---
History of Present Illness - Chief Complaint Chief Complaint: Weakness for 2 days, passing out when stands up History of Present Illness: is a 86 year old male.who says he blacks out when standing. The last time he visited the ER he was blacking out with standing at the refrigerator. At 6 AM this morning he reached for his Rollator and could not reach it and when he is set up to try to reach the right Rollator he passed out. When we try to set him up in bed he starts to yell and scream and shake and says he is going to pass out even though the head of his bed was already elevated and he was simply leaning forward a little bit. Witnessed: unwitnessed Prior Episodes: single episode today (He also had another episode as we try to do orthostatic blood pressures.) Timing/Duration: today Precipitating Factors: unknown Context: sitting, standing Loss of Consciousness: no loss of consciousness Charcter of event(s): almost passed out - Review of Systems Constitutional: Weakness, No Fever, No Chills Eyes: No Symptoms Ears, Nose, & Throat: No Symptoms Respiratory: No Cough, No Short Of Breath Cardiac: Syncope, Other, No Chest Pain, No Edema Abdominal/Gastrointestinal: No Abdominal Pain, No Nausea, No Vomiting, No Diarrhea Genitourinary Symptoms: No Dysuria Musculoskeletal: No Back Pain, No Neck Pain Skin: No Rash Neurological: No Dizziness, No Focal Weakness, No Sensory Changes Psychological: No Symptoms Endocrine: No Symptoms Hematologic/Lymphatic: No Symptoms Immunological/Allergic: No Symptoms Medications & Allergies Home Medications: Home Medication List Aspirin [Aspir 81] 81 mg PO DAILY 07/23/12 [History Confirmed 12/27/21] Isosorbide Mononitrate 30 mg [Imdur 30 MG] 30 mg PO DAILY 09/21/12 [History Confirmed 12/27/21] Potassium Chloride Tab* [Klor Con] 10 meq PO BID 09/21/12 [History Confirmed 12/27/21] Carvedilol [Coreg ] 6.25 mg PO BID 02/04/15 [History Confirmed 12/27/21] Lisinopril/Hydrochlorothiazide [Lisinopril-Hctz 20-25 mg Tab] 20 - 25 mg PO DAILY 02/04/15 [History Confirmed 12/27/21] Tamsulosin HCl 0.4 mg [Flomax 0.4 MG] 0.4 mg PO DAILY 08/08/17 [History Confirmed 12/27/21] Acetaminophen 500 mg [Tylenol Extra Strength 500 mg] 500 - 1,000 mg PO BID PRN PRN 07/28/19 [History Confirmed 12/27/21] Folic Acid 1 mg PO DAILY 07/28/19 [History Confirmed 12/27/21] Oxybutynin Chloride [Oxybutynin Chloride ER] 5 mg PO DAILY 07/28/19 [History Confirmed 12/27/21] Clopidogrel Bisulfate [PLAVIX Tablet] 75 mg PO DAILY 04/21/20 [History Confirmed 12/27/21] Vitamin E 200 unit PO BID 08/01/20 [History Confirmed 12/27/21] Ferrous Sulfate [Iron] 325 mg PO DAILY 09/22/21 [History Confirmed 12/27/21] Glimepiride 2 mg [Amaryl 2 MG] 2 mg PO DAILY 09/22/21 [History Confirmed 12/27/21] Metformin HCl [Metformin ER Osmotic] 1,000 mg PO BID 09/22/21 [History Confirmed 12/27/21] Zolpidem Tartrate 5 mg [Ambien 5 MG Tablet] 5 mg PO HS 10/29/21 [History Confirmed 12/27/21] Omeprazole 40 mg PO DAILY 12/27/21 [History Confirmed 12/27/21] Pravastatin Sodium 10 mg PO HS 12/27/21 [History Confirmed 12/27/21] Sitagliptin Phosphate [Januvia] 100 mg PO DAILY 12/27/21 [History Confirmed 12/27/21] Allergies/Adverse Reactions: Allergies Allergy/AdvReac Type Severity Reaction Status Date / Time No Known Drug Allergies Allergy Verified 12/27/21 12:59 - Past Medical History Past Medical History: Yes Neurological History: TIA ENT History: No Pertinent History Cardiac History: Coronary Artery Disease, Hypertension Respiratory History: No Pertinent History Endocrine Medical History: Diabetes Type II Musculoskelatal History: Arthritis GI Medical History: GI Bleed History: No Pertinent History Pyscho-Social History: No Pertinent History Male Reproductive Disorders: No Pertinent History Comment: Bladder spams, hyperlipidemia, insomnia - Past Surgical History Past Surgical History: Yes Neuro Surgical History: No Pertinent History Cardiac History: Cardiac Catheterization, Cardiac Stent Respiratory Surgery: No Pertinent History GI Surgical History: Hernia Repair Genitourinary Surgical Hx: No Pertinent History Musculskeletal Surgical Hx: Orthopedic Surgery Male Surgical History: No Pertinent History Other Surgical History: Nasal surgery - Social History Smoking Status: Never smoker Exposure to second hand smoke: No Alcohol: None Drug Use: none Significant Family History: no pertinent family hx - Physical Exam Vital Signs: Vital Signs - 24 hr Temp Pulse Resp BP Pulse Ox 12/28/21 16:00 98.9 F 83 16 189/91 97 12/28/21 11:52 98.2 F 70 16 199/93 95 12/28/21 07:56 96.6 F 65 16 191/93 100 12/28/21 04:00 97.8 F 66 22 159/77 95 12/27/21 23:50 97.8 F 66 15 193/88 95 12/27/21 20:00 98.4 F 66 20 175/81 95 General Appearance: no apparent distress, alert Neurologic Exam: alert, oriented x 3, cooperative, normal mood/affect, nml cerebellar function, nml station & gait, sensation nml, No motor deficits Eye Exam: PERRL/EOMI, eyes nml inspection Ears, Nose, Throat Exam: normal ENT inspection, TMs normal, pharynx normal, moist mucous membranes Neck Exam: normal inspection, non-tender, supple, full range of motion Respiratory Exam: normal breath sounds, lungs clear, No respiratory distress Cardiovascular Exam: regular rate/rhythm, normal heart sounds, normal peripheral pulses Gastrointestinal/Abdomen Exam: soft, normal bowel sounds, No tenderness, No mass Back Exam: normal inspection, normal range of motion, No CVA tenderness, No vertebral tenderness Extremity Exam: normal inspection, normal range of motion, pelvis stable Skin Exam: normal color, warm, dry, No rash Lymphatic Exam: No adenopathy Results - Labs Lab/Micro Results: Lab Results-Last 24 Hours 12/27/21 12/27/21 12/27/21 Range/Units 13:15 17:30 17:33 WBC (4.0-10.5) x10^3/uL RBC (4.1-5.6) x10^6/uL Hgb (12.5-18.0) g/dL Hct (42-50) % MCV (78-100) fL MCH (26-32) pg MCHC (32-36) g/dL RDW (11.5-14.0) % Plt Count (150-450) x10^3/uL MPV (7.5-11.0) fL Gran % (36.0-66.0) % Immature Gran % (Auto) (0.00-0.4) % Nucleat RBC Rel Count (0.00-0.1) % Eos # (Auto) (0-0.5) x10^3/uL Immature Gran # (Auto) (0.00-0.03) x10^3u/L Absolute Lymphs (auto) (1.0-4.6) x10^3/uL Absolute Monos (auto) (0.0-1.3) x10^3/uL Absolute Nucleated RBC (0.00-0.01) x10^3u/L Lymphocytes % (24.0-44.0) % Monocytes % (0.0-12.0) % Eosinophils % (0.00-5.0) % Basophils % (0.0-0.4) % Absolute Granulocytes (1.4-6.9) x10^3/uL Basophils # (0-0.4) x10^3/uL Sodium (137-145) mmol/L Potassium (3.5-5.1) mmol/L Chloride (98-107) mmol/L Carbon Dioxide (22-30) mmol/L Anion Gap (5-15) MEQ/L BUN (9-20) mg/dL Creatinine (0.66-1.25) mg/dL Estimated GFR ML/MIN Glucose (74-106) mg/dL POC Glucometer (74 to 106) mg/dL Hemoglobin A1c 7.02 H (4.5-6.0) % Calcium (8.4-10.2) mg/dL Total Bilirubin (0.2-1.3) mg/dL AST (17-59) U/L ALT (0-50) U/L Alkaline Phosphatase (38-126) U/L Troponin I < 0.012 (0.000-0.034) ng/mL Serum Total Protein (6.3-8.2) g/dL Albumin (3.5-5.0) g/dL Prealbumin 32.94 (17.6-36.0) mg/dL 12/27/21 12/27/21 12/28/21 Range/Units 19:55 20:53 05:00 WBC 4.8 (4.0-10.5) x10^3/uL RBC 3.99 L (4.1-5.6) x10^6/uL Hgb 13.0 (12.5-18.0) g/dL Hct 38.6 L (42-50) % MCV 96.7 (78-100) fL MCH 32.6 H (26-32) pg MCHC 33.7 (32-36) g/dL RDW 13.9 (11.5-14.0) % Plt Count 171 (150-450) x10^3/uL MPV 10.9 (7.5-11.0) fL Gran % 54.8 (36.0-66.0) % Immature Gran % (Auto) 0.2 (0.00-0.4) % Nucleat RBC Rel Count 0.0 (0.00-0.1) % Eos # (Auto) 0.19 (0-0.5) x10^3/uL Immature Gran # (Auto) 0.01 (0.00-0.03) x10^3u/L Absolute Lymphs (auto) 1.36 (1.0-4.6) x10^3/uL Absolute Monos (auto) 0.57 (0.0-1.3) x10^3/uL Absolute Nucleated RBC 0.00 (0.00-0.01) x10^3u/L Lymphocytes % 28.6 (24.0-44.0) % Monocytes % 12.0 (0.0-12.0) % Eosinophils % 4.0 (0.00-5.0) % Basophils % 0.4 (0.0-0.4) % Absolute Granulocytes 2.61 (1.4-6.9) x10^3/uL Basophils # 0.02 (0-0.4) x10^3/uL Sodium (137-145) mmol/L Potassium (3.5-5.1) mmol/L Chloride (98-107) mmol/L Carbon Dioxide (22-30) mmol/L Anion Gap (5-15) MEQ/L BUN (9-20) mg/dL Creatinine (0.66-1.25) mg/dL Estimated GFR ML/MIN Glucose (74-106) mg/dL POC Glucometer 143 H (74 to 106) mg/dL Hemoglobin A1c (4.5-6.0) % Calcium (8.4-10.2) mg/dL Total Bilirubin (0.2-1.3) mg/dL AST (17-59) U/L ALT (0-50) U/L Alkaline Phosphatase (38-126) U/L Troponin I < 0.012 (0.000-0.034) ng/mL Serum Total Protein (6.3-8.2) g/dL Albumin (3.5-5.0) g/dL Prealbumin (17.6-36.0) mg/dL 12/28/21 12/28/21 12/28/21 Range/Units 05:00 06:52 11:11 WBC (4.0-10.5) x10^3/uL RBC (4.1-5.6) x10^6/uL Hgb (12.5-18.0) g/dL Hct (42-50) % MCV (78-100) fL MCH (26-32) pg MCHC (32-36) g/dL RDW (11.5-14.0) % Plt Count (150-450) x10^3/uL MPV (7.5-11.0) fL Gran % (36.0-66.0) % Immature Gran % (Auto) (0.00-0.4) % Nucleat RBC Rel Count (0.00-0.1) % Eos # (Auto) (0-0.5) x10^3/uL Immature Gran # (Auto) (0.00-0.03) x10^3u/L Absolute Lymphs (auto) (1.0-4.6) x10^3/uL Absolute Monos (auto) (0.0-1.3) x10^3/uL Absolute Nucleated RBC (0.00-0.01) x10^3u/L Lymphocytes % (24.0-44.0) % Monocytes % (0.0-12.0) % Eosinophils % (0.00-5.0) % Basophils % (0.0-0.4) % Absolute Granulocytes (1.4-6.9) x10^3/uL Basophils # (0-0.4) x10^3/uL Sodium 140 (137-145) mmol/L Potassium 4.0 (3.5-5.1) mmol/L Chloride 109 H (98-107) mmol/L Carbon Dioxide 22 (22-30) mmol/L Anion Gap 13.1 (5-15) MEQ/L BUN 26 H (9-20) mg/dL Creatinine 1.31 H (0.66-1.25) mg/dL Estimated GFR 55.0 ML/MIN Glucose 151 H (74-106) mg/dL POC Glucometer 128 H 186 H (74 to 106) mg/dL Hemoglobin A1c (4.5-6.0) % Calcium 9.3 (8.4-10.2) mg/dL Total Bilirubin 0.60 (0.2-1.3) mg/dL AST 25 (17-59) U/L ALT 20 (0-50) U/L Alkaline Phosphatase 74 (38-126) U/L Troponin I (0.000-0.034) ng/mL Serum Total Protein 5.8 L (6.3-8.2) g/dL Albumin 3.1 L (3.5-5.0) g/dL Prealbumin (17.6-36.0) mg/dL 12/28/21 Range/Units 16:09 WBC (4.0-10.5) x10^3/uL RBC (4.1-5.6) x10^6/uL Hgb (12.5-18.0) g/dL Hct (42-50) % MCV (78-100) fL MCH (26-32) pg MCHC (32-36) g/dL RDW (11.5-14.0) % Plt Count (150-450) x10^3/uL MPV (7.5-11.0) fL Gran % (36.0-66.0) % Immature Gran % (Auto) (0.00-0.4) % Nucleat RBC Rel Count (0.00-0.1) % Eos # (Auto) (0-0.5) x10^3/uL Immature Gran # (Auto) (0.00-0.03) x10^3u/L Absolute Lymphs (auto) (1.0-4.6) x10^3/uL Absolute Monos (auto) (0.0-1.3) x10^3/uL Absolute Nucleated RBC (0.00-0.01) x10^3u/L Lymphocytes % (24.0-44.0) % Monocytes % (0.0-12.0) % Eosinophils % (0.00-5.0) % Basophils % (0.0-0.4) % Absolute Granulocytes (1.4-6.9) x10^3/uL Basophils # (0-0.4) x10^3/uL Sodium (137-145) mmol/L Potassium (3.5-5.1) mmol/L Chloride (98-107) mmol/L Carbon Dioxide (22-30) mmol/L Anion Gap (5-15) MEQ/L BUN (9-20) mg/dL Creatinine (0.66-1.25) mg/dL Estimated GFR ML/MIN Glucose (74-106) mg/dL POC Glucometer 147 H (74 to 106) mg/dL Hemoglobin A1c (4.5-6.0) % Calcium (8.4-10.2) mg/dL Total Bilirubin (0.2-1.3) mg/dL AST (17-59) U/L ALT (0-50) U/L Alkaline Phosphatase (38-126) U/L Troponin I (0.000-0.034) ng/mL Serum Total Protein (6.3-8.2) g/dL Albumin (3.5-5.0) g/dL Prealbumin (17.6-36.0) mg/dL Accuchecks Date 12/28/21 Date 12/28/21 Date 12/28/21 Date 12/27/21 Time 07:30 Time 22:00 - Radiology Impressions Radiology Exams & Impressions: Radiology Procedures Category Date Time Status CHEST 1 VIEW (PORTABLE) Stat Exams 12/27/21 13:09 Completed HEAD WITHOUT CONTRAST [CT] Urgent Exams 12/28/21 09:05 Completed Assessment/Plan (1) Symptomatic orthostatic increase in heart rate Current Visit: Yes Status: Acute Assessment & Plan: Chief Complaint Diagnosis Weakness Allergies Allergy/AdvReac Type Severity Reaction Status Date / Time No Known Drug Allergies Allergy Verified 12/27/21 12:59 Vital Signs (Last 24 hours) Temp Pulse Resp BP Pulse Ox 12/28/21 16:00 98.9 F 83 16 189/91 97 12/28/21 11:52 98.2 F 70 16 199/93 95 12/28/21 07:56 96.6 F 65 16 191/93 100 12/28/21 04:00 97.8 F 66 22 159/77 95 12/27/21 23:50 97.8 F 66 15 193/88 95 12/27/21 20:00 98.4 F 66 20 175/81 95 Home Medications Medication Instructions Recorded Confirmed Last Taken Type Omeprazole 40 mg PO DAILY 12/27/21 12/27/21 Unknown History Pravastatin Sodium 10 mg PO HS 12/27/21 12/27/21 Unknown History Sitagliptin Phosphate [Januvia] 100 mg PO DAILY 12/27/21 12/27/21 Unknown History Current Medications Generic Name Dose Route Start Last Admin Trade Name Daniella PRN Reason Stop Dose Admin Acetaminophen 500 - 1,000 mg 12/27/21 17:24 Acetaminophen 500 Mg Tablet PO 01/26/22 17:23 BID PRN PRN PAIN AND/OR FEVER Amlodipine Besylate 5 mg 12/28/21 22:00 Amlodipine Besylate 5 Mg Tablet PO 01/27/22 21:59 HS ART Aspirin 81 mg 12/28/21 10:00 12/28/21 09:10 Aspirin 81 Mg Tablet.Ec PO 01/27/22 09:59 81 mg DAILY ART Administration Carvedilol 12.5 mg 12/28/21 18:08 12/28/21 18:18 Carvedilol 6.25 Mg Tablet PO 01/26/22 21:59 12.5 mg BID ART Administration Clopidogrel Bisulfate 75 mg 12/28/21 10:00 12/28/21 09:11 Clopidogrel Bisulfate 75 Mg Tablet PO 01/27/22 09:59 75 mg DAILY ART Administration Ferrous Sulfate 325 mg 12/28/21 10:00 12/28/21 09:11 Ferrous Sulfate 325 Mg Tablet PO 01/27/22 09:59 325 mg DAILY ART Administration Folic Acid 1 mg 12/28/21 10:00 12/28/21 09:11 Folic Acid 1 Mg Tablet PO 01/27/22 09:59 1 mg DAILY ART Administration Glimepiride 2 mg 12/28/21 10:00 12/28/21 09:11 Glimepiride 2 Mg Tablet PO 01/27/22 09:59 2 mg DAILY ART Administration Hydrochlorothiazide 25 mg 12/28/21 10:00 12/28/21 09:10 Hydrochlorothiazide 25 Mg Tablet PO 01/27/22 09:59 25 mg DAILY ART Administration Isosorbide Mononitrate 30 mg 12/28/21 10:00 12/28/21 09:10 Isosorbide Mononitrate 30 Mg Tab PO 01/27/22 09:59 30 mg DAILY ART Administration Lisinopril 20 mg 12/28/21 10:00 12/28/21 09:10 Lisinopril 20 Mg Tablet PO 01/27/22 09:59 20 mg DAILY ART Administration Lorazepam 1 mg 12/28/21 17:59 Lorazepam 1 Mg Tablet PO 01/27/22 17:58 Q6H PRN PRN ANXIETY Metformin HCl 1,000 mg 12/27/21 22:00 12/28/21 09:10 Metformin Hcl Er 500 Mg Tab PO 01/26/22 21:59 1,000 mg BID ART Administration Pantoprazole Sodium 40 mg 12/28/21 10:00 12/28/21 09:10 Protonix (Pantoprazole) 40 Mg Tablet PO 01/27/22 09:59 40 mg DAILY ART Administration Potassium Chloride 10 meq 12/27/21 22:00 12/28/21 09:10 Potassium Chloride Tab 10 Meq Tab PO 01/26/22 21:59 10 meq BID ART Administration Sertraline HCl 50 mg 12/28/21 13:00 12/28/21 13:28 Sertraline Hcl 50 Mg Tab PO 01/27/22 12:59 50 mg DAILY ART Administration Simvastatin 10 mg 12/27/21 22:00 12/27/21 21:09 Simvastatin 10 Mg Tablet PO 01/26/22 21:59 10 mg HS ART Administration Sitagliptin Phosphate 100 mg 12/28/21 10:00 12/28/21 09:10 Sitagliptin Phosphate 50 Mg Tablet PO 01/27/22 09:59 100 mg DAILY ART Administration Tamsulosin HCl 0.4 mg 12/28/21 10:00 12/28/21 09:11 Tamsulosin Hcl 0.4 Mg Cap PO 01/27/22 09:59 0.4 mg DAILY ART Administration Vitamin E 400 u 12/28/21 10:00 12/28/21 09:11 Vitamin E 400 Iu Softgel PO 01/27/22 09:59 400 u DAILY ART Administration Discontinued Medications Generic Name Dose Route Start Last Admin Trade Name Daniella PRN Reason Stop Dose Admin Amlodipine Besylate 5 mg 12/28/21 11:20 12/28/21 11:48 Amlodipine Besylate 5 Mg Tablet PO 12/28/21 11:21 5 mg NOW ONE Administration Carvedilol 6.25 mg 12/27/21 22:00 12/28/21 09:11 Carvedilol 6.25 Mg Tablet PO 01/26/22 21:59 6.25 mg BID ART Administration Carvedilol Confirm 12/28/21 18:11 Carvedilol 12.5 Mg Tablet Administered 12/28/21 18:12 Dose 12.5 mg .ROUTE .STK-MED ONE Sodium Chloride 1,000 mls @ 999 mls/hr 12/27/21 13:08 12/27/21 14:42 Sodium Chloride 0.9% 1000 Ml IV 12/27/21 14:08 Infused .Q1H1M STA Infusion Sodium Chloride Confirm 12/27/21 13:35 Sodium Chloride 0.9% 1000 Ml Administered 12/27/21 13:36 Dose 1,000 mls @ ud .ROUTE .STK-MED ONE Potassium Chloride/Sodium Chloride 1,000 mls @ 100 mls/hr 12/27/21 15:00 12/28/21 05:19 Sodium Chloride 0.9% W/ 20 Meq Kcl/Liter IV 01/26/22 14:59 100 mls/hr .Q10H ART Administration Non-Formulary Medication 1 tab 12/28/21 10:00 Lisinopril/Hydrochlorothiazide [Lisinopril-Hctz 20-25 Mg Tab] PO 01/27/22 09:59 DAILY ART Oxybutynin Chloride 5 mg 12/28/21 10:00 Oxybutynin Chloride Xl 5 Mg Tab PO 01/27/22 09:59 DAILY ART Zolpidem Tartrate 5 mg 12/27/21 22:00 12/27/21 21:08 Zolpidem Tartrate 5 Mg Tab PO 01/26/22 21:59 5 mg HS ART Administration Intake & Output (Last 24 hours) 12/26/21 12/27/21 12/28/21 12/29/21 11:59 11:59 11:59 11:59 Intake Total 1307 480 Output Total 950 600 Balance 357 -120 Weight 75.3 kg Laboratory Results (Last 24 hours) 12/28/21 12/28/21 12/28/21 16:09 11:11 06:52 WBC RBC Hgb Hct MCV MCH MCHC RDW Plt Count MPV Gran % Immature Gran % (Auto) Nucleat RBC Rel Count Eos # (Auto) Immature Gran # (Auto) Absolute Lymphs (auto) Absolute Monos (auto) Absolute Nucleated RBC Lymphocytes % Monocytes % Eosinophils % Basophils % Absolute Granulocytes Basophils # Sodium Potassium Chloride Carbon Dioxide Anion Gap BUN Creatinine Estimated GFR Glucose POC Glucometer 147 H 186 H 128 H Hemoglobin A1c Calcium Total Bilirubin AST ALT Alkaline Phosphatase Troponin I Serum Total Protein Albumin Prealbumin 12/28/21 12/28/21 12/27/21 05:00 05:00 20:53 WBC 4.8 RBC 3.99 L Hgb 13.0 Hct 38.6 L MCV 96.7 MCH 32.6 H MCHC 33.7 RDW 13.9 Plt Count 171 MPV 10.9 Gran % 54.8 Immature Gran % (Auto) 0.2 Nucleat RBC Rel Count 0.0 Eos # (Auto) 0.19 Immature Gran # (Auto) 0.01 Absolute Lymphs (auto) 1.36 Absolute Monos (auto) 0.57 Absolute Nucleated RBC 0.00 Lymphocytes % 28.6 Monocytes % 12.0 Eosinophils % 4.0 Basophils % 0.4 Absolute Granulocytes 2.61 Basophils # 0.02 Sodium 140 Potassium 4.0 Chloride 109 H Carbon Dioxide 22 Anion Gap 13.1 BUN 26 H Creatinine 1.31 H Estimated GFR 55.0 Glucose 151 H POC Glucometer 143 H Hemoglobin A1c Calcium 9.3 Total Bilirubin 0.60 AST 25 ALT 20 Alkaline Phosphatase 74 Troponin I Serum Total Protein 5.8 L Albumin 3.1 L Prealbumin 12/27/21 12/27/21 12/27/21 19:55 17:33 17:30 WBC RBC Hgb Hct MCV MCH MCHC RDW Plt Count MPV Gran % Immature Gran % (Auto) Nucleat RBC Rel Count Eos # (Auto) Immature Gran # (Auto) Absolute Lymphs (auto) Absolute Monos (auto) Absolute Nucleated RBC Lymphocytes % Monocytes % Eosinophils % Basophils % Absolute Granulocytes Basophils # Sodium Potassium Chloride Carbon Dioxide Anion Gap BUN Creatinine Estimated GFR Glucose POC Glucometer Hemoglobin A1c Calcium Total Bilirubin AST ALT Alkaline Phosphatase Troponin I < 0.012 < 0.012 Serum Total Protein Albumin Prealbumin 32.94 12/27/21 13:15 WBC RBC Hgb Hct MCV MCH MCHC RDW Plt Count MPV Gran % Immature Gran % (Auto) Nucleat RBC Rel Count Eos # (Auto) Immature Gran # (Auto) Absolute Lymphs (auto) Absolute Monos (auto) Absolute Nucleated RBC Lymphocytes % Monocytes % Eosinophils % Basophils % Absolute Granulocytes Basophils # Sodium Potassium Chloride Carbon Dioxide Anion Gap BUN Creatinine Estimated GFR Glucose POC Glucometer Hemoglobin A1c 7.02 H Calcium Total Bilirubin AST ALT Alkaline Phosphatase Troponin I Serum Total Protein Albumin Prealbumin Orders (Last 24 hours) Category Date Time Status Orthostatic Vital Signs Q4HWA Care 12/27/21 20:00 Completed Puppet Maker/Discharge Plan ROUTINE Cons 12/28/21 08:00 Active Nutritional Admission Screen ONCE Diet 12/28/21 08:00 Active HEAD WITHOUT CONTRAST [CT] Urgent Exams 12/28/21 09:05 Completed CBC W DIFF AM.LAB Lab 12/28/21 05:00 Completed CMP AM.LAB Lab 12/28/21 05:00 Completed POCT GLUCOSE Stat Lab 12/27/21 20:53 Completed POCT GLUCOSE Stat Lab 12/28/21 06:52 Completed POCT GLUCOSE Stat Lab 12/28/21 11:11 Completed POCT GLUCOSE Stat Lab 12/28/21 16:09 Completed PREALBUMIN Routine Lab 12/27/21 17:33 Completed TROPONIN Q3H Lab 12/27/21 17:30 Completed TROPONIN Q3H Lab 12/27/21 19:55 Completed Acetaminophen 500 mg [Tylenol Extra Strength 500 mg* Med 12/27/21 17:24 Active ] 500 - 1,000 mg PO BID PRN PRN Amlodipine Besylate 5 mg [Norvasc 5 mg] Med 12/28/21 22:00 Active 5 mg PO HS Amlodipine Besylate 5 mg [Norvasc 5 mg] Med 12/28/21 11:20 Discontinued 5 mg PO NOW ONE Aspirin EC 81 mg [Ecotrin 81 mg] Med 12/28/21 10:00 Active 81 mg PO DAILY Carvedilol [Coreg ] Med 12/28/21 18:08 Ordered 12.5 mg PO BID Carvedilol [Coreg ] Med 12/27/21 22:00 Discontinued 6.25 mg PO BID Carvedilol 12.5 mg [Coreg 12.5 mg] Med 12/28/21 18:11 Discontinued 12.5 mg .ROUTE .STK-MED ONE Clopidogrel Bisulfate [PLAVIX Tablet] Med 12/28/21 10:00 Active 75 mg PO DAILY Ferrous Sulfate 325 mg [Feosol 325 mg] Med 12/28/21 10:00 Active 325 mg PO DAILY Folic Acid 1 mg [Folate 1 mg] Med 12/28/21 10:00 Active 1 mg PO DAILY Glimepiride 2 mg [Amaryl 2 MG] Med 12/28/21 10:00 Active 2 mg PO DAILY Hydrochlorothiazide 25 mg [hydroDIURIL 25 MG] Med 12/28/21 10:00 Active 25 mg PO DAILY Isosorbide Mononitrate 30 mg [Imdur 30 MG] Med 12/28/21 10:00 Active 30 mg PO DAILY Lisinopril 20 mg [Zestril 20 MG] Med 12/28/21 10:00 Active 20 mg PO DAILY Lisinopril/Hydrochlorothiazide [Lisinopril-Hctz 20-25 Med 12/28/21 10:00 Discontinued mg Tab] 1 tab PO DAILY Lorazepam 1 mg [Ativan 1 MG] Med 12/28/21 17:59 Ordered 1 mg PO Q6H PRN PRN Metformin HCl Xr 500 mg [Glucophage XR 500 MG] Med 12/27/21 22:00 Active 1,000 mg PO BID Oxybutynin Chloride Xl 5 mg [Ditropan XL 5 MG] Med 12/28/21 10:00 Discontinued 5 mg PO DAILY PANTOPRAZOLE 40 mg Tablet [Protonix 40MG Tablet] Med 12/28/21 10:00 Active 40 mg PO DAILY Potassium Chloride Tab* [Klor Con] Med 12/27/21 22:00 Active 10 meq PO BID Sertraline HCl 50 mg [Zoloft 50 mg Tablet] Med 12/28/21 13:00 Active 50 mg PO DAILY Simvastatin 10 mg [Zocor 10MG] Med 12/27/21 22:00 Active 10 mg PO HS Sitagliptin Phosphate 50 MG [Januvia 50 MG] Med 12/28/21 10:00 Active 100 mg PO DAILY Tamsulosin HCl 0.4 mg [Flomax 0.4 MG] Med 12/28/21 10:00 Active 0.4 mg PO DAILY Vitamin E 400 Units [Vitamin E 400 UNIT SOFTGEL] Med 12/28/21 10:00 Active 400 u PO DAILY Zolpidem Tartrate 5 mg [Ambien 5 MG Tablet] Med 12/27/21 22:00 Discontinued 5 mg PO HS OT Screen per Nursing Assess ONCE OT 12/28/21 08:00 Completed PT Screen per Nursing Assess ONCE PT 12/28/21 08:00 Completed Patient Care Notes (Last 24 hours) 12/28/21 16:53 Nursing Note by Emy Zazueta A lady from [facility] was here to evaluate patient. Initialized on 12/28/21 16:53 - END OF NOTE 12/28/21 14:16 Case Management Note by Ekta Tenorio CALLED [facility] FOR UPDATE- NO ANSWER- LM Initialized on 12/28/21 14:16 - END OF NOTE 12/28/21 12:32 Case Management Note by Ekta Tenorio [facility] UNABLE TO TAKE PATIENT- S/W FAMILY- REFERRAL SENT TO [place] Initialized on 12/28/21 12:32 - END OF NOTE 12/28/21 12:00 (created 12/28/21 12:11) Nursing Note by Trixie Lino Rounded with Dr. Garrison. Reported head CT results to him. Pt. has been tearful this AM; new order for antidepressant received from Dr. Garrison. Orthostatic BP's were negative. Initialized on 12/28/21 12:11 - END OF NOTE 12/28/21 11:20 (created 12/28/21 12:10) Nursing Note by Trixie Lino BP remains elevated after receiving AM meds for hypertension. Dr. Garrison notified and new orders received. Initialized on 12/28/21 12:10 - END OF NOTE 12/28/21 09:42 Case Management Note by Ekta Tenorio PATIENT HAS INTREPID C- THEY WILL NEED NOTIFIED AT TIME OF DC AT [phone]. THEY WILL NEED FAXED THE DC INSTRUCTIONS, DC MED LIST AND DC SUMMARY ( IF AVAILABLE) TO [phone] Initialized on 12/28/21 09:42 - END OF NOTE 12/28/21 09:41 Case Management Note by Ekta Tenorio [facility]FERRAL [facility]ED TO [facility] Initialized on 12/28/21 09:41 - END OF NOTE 12/28/21 09:00 (created 12/28/21 12:08) Nursing Note by Trixie Lino Hypertension and patient's c/o feeling like he would pass out when sitting up reported to Dr. Garrison. New orders received. Initialized on 12/28/21 12:08 - END OF NOTE 12/27/21 23:51 CANE LOADER Note by Angelina Rincon RN Tamela was told about pts BP /88 Initialized on 12/27/21 23:51 - END OF NOTE Code(s): R00.8 - OTHER ABNORMALITIES OF HEART BEAT (2) Type 2 diabetes mellitus Current Visit: No Status: Chronic Qualifiers: Diabetes mellitus intermission coordinator insulin use: without care home use Diabetes mellitus complication status: with hyperglycemia Qualified Code(s): E11.65 - Type 2 diabetes mellitus with hyperglycemia (3) Dizziness Current Visit: Yes Status: Acute Code(s): R42 - DIZZINESS AND GIDDINESS (4) Syncope Current Visit: No Status: Acute Qualifiers: Syncope type: unspecified Code(s): R55 - SYNCOPE AND COLLAPSE
[2021-12-28] MEDS ORDERED: NORVASC 5 MG PO SCH (22:00)
[2021-12-28] MEDS: Zocor 10MG PO SCH (22:12)
[2021-12-29] MEDS: Januvia 50 MG PO SCH (09:23)
[2021-12-29] MEDS: ECOTRIN 81 MG PO SCH (09:23)
[2021-12-29] MEDS: FOLATE 1 MG PO SCH (09:23)
[2021-12-29] MEDS: Imdur 30 MG PO SCH (09:23)
[2021-12-29] MEDS: PLAVIX Tablet PO SCH (09:23)
[2021-12-29] MEDS: Amaryl 2 MG PO SCH (09:23)
[2021-12-29] MEDS: hydroDIURIL 25 MG PO SCH (09:23)
[2021-12-29] MEDS: Glucophage XR 500 MG PO SCH (09:23)
[2021-12-29] MEDS: FEOSOL 325 MG PO SCH (09:24)
[2021-12-29] MEDS: Protonix 40MG Tablet PO SCH (09:24)
[2021-12-29] MEDS: Coreg PO SCH (09:24)
[2021-12-29] MEDS: Flomax 0.4 MG PO SCH (09:24)
[2021-12-29] MEDS: ZOLOFT 50 MG TABLET PO SCH (09:24)
[2021-12-29] MEDS: Zestril 20 MG PO SCH (09:24)
[2021-12-29] MEDS: Klor Con PO SCH (09:24)
[2021-12-29] MEDS: Vitamin E 400 UNIT SOFTGEL PO SCH (09:25)
[2021-12-29 11:27] VITALS: BP 123/59; PULSE 60; O2SAT 97
[2021-12-29] MEDS ORDERED: Transderm Scop 1.5MG Patch TOP SCH (12:00)
== END 2021-12-29 15:46 ==
LOC: ED 12:56 → MED SURG 16:31
PROVIDERS: ADMIT General Practice; ATTEND General Practice
DX: R00.8 Other abnormalities of heart beat (principal); E11.65 Type 2 diabetes mellitus with hyperglycemia; R42 Dizziness and giddiness; R55 Syncope and collapse; I25.10 Atherosclerotic heart disease of native coronary artery without angina pectoris; I10 Essential (primary) hypertension; Z79.899 Other long term (current) drug therapy; Z20.828 Contact with and (suspected) exposure to other viral communicable diseases
CPT/HCPCS: 0241U; 36000; 36415; 70450; 71045; 80053; 81015; 82150; 82947; 83036; 83605; 83690; 83735; 83880; 84134; 84484; 85025; 85610; 85652; 93005; 93268; 97161; 99285; G0378; A9270-GY

== ENCOUNTER 2022-02-02 01:01 | Observation (INO) | payer MEDICARE ==
[2022-02-02 02:07] LABS: INFLUENZA A NEGATIVE (NEGATIVE); INFLUENZA B NEGATIVE (NEGATIVE); RESPIRATORY SYNCTIAL VIRUS NEGATIVE (Negative)
[2022-02-02 02:12] LABS: SARS-CoV-2 Xpert Express POSITIVE (NEGATIVE)
[2022-02-02 04:48] LABS: Absolute Neutrophil Ct (ANC) 3.18 x10^3/uL (1.4-6.9); Basophil (Absolute #) 0.01 x10^3/uL (0-0.4); Eosinophil % 1.4 % (0.00-5.0); Eosinophil (Absolute #) 0.07 x10^3/uL (0-0.5); Hematocrit 40.8 % (42-50); Hemoglobin 13.5 g/dL (12.5-18.0); Mean Cell Volume 95.6 fL (78-100); Mean Corpuscular Hemoglobin 31.6 pg (26-32); Mean Corpuscular Hgb Concent. 33.1 g/dL (32-36); Mean Platelet Volume 10.5 fL (7.5-11.0); Monocyte (Absolute #) 0.53 x10^3/uL (0.0-1.3); Monocytes % 10.6 % (0.0-12.0); Neutrophil % 63.6 % (36.0-66.0); Platelet Count 184 x10^3/uL (150-450); Red Blood Count 4.27 x10^6/uL (4.1-5.6); Red Cell Distribution Width 13.3 % (11.5-14.0)
[2022-02-02 05:09] LABS: ALBUMIN 3.4 g/dL (3.5-5.0); ANION GAP 11.7 MEQ/L (5-15); BILIRUBIN,TOTAL 0.5 mg/dL (0.2-1.3); Calcium 9.6 mg/dL (8.4-10.2); Creatinine 1 1.4 mg/dL (0.66-1.25); Total Protein 6.1 g/dL (6.3-8.2)
[2022-02-02] MEDS ORDERED: TYLENOL 325 MG PO PRN (07:13)
[2022-02-02] MEDS ORDERED: LISINOPRIL PO SCH (10:00)
[2022-02-02] MEDS ORDERED: VITAMIN E 100 UNIT PO SCH (10:00)
[2022-02-02] MEDS ORDERED: NON-FORMULARY ITEM (Meclizine Hcl [Meclizine Hcl] 12.5 MG Tablet) PO SCH (10:00)
[2022-02-02] MEDS ORDERED: HYDROCHLOROTHIAZIDE PO SCH (10:00)
[2022-02-02] MEDS ORDERED: NON-FORMULARY ITEM (Omeprazole [Omeprazole] 40 MG Capsule.Dr) PO SCH (10:00)
[2022-02-02] MEDS ORDERED: [UNRECOGNIZED DRUG - OTHER] PO SCH (10:00)
[2022-02-02] MEDS ORDERED: Coreg PO SCH (10:00)
[2022-02-02] MEDS ORDERED: NON-FORMULARY ITEM (Metformin Hcl [Metformin Er Osmotic] 1,000 MG Tab.Er.24) PO SCH (10:00)
[2022-02-02] MEDS: hydroDIURIL 25 MG PO SCH (10:28)
[2022-02-02] MEDS: Vitamin E 400 UNIT SOFTGEL PO SCH (10:28)
[2022-02-02] MEDS: ECOTRIN 81 MG PO SCH (10:28)
[2022-02-02] MEDS: Imdur 30 MG PO SCH (10:28)
[2022-02-02] MEDS: FOLATE 1 MG PO SCH (10:28)
[2022-02-02] MEDS: Glucophage XR 500 MG PO SCH ×2 (10:29→21:23)
[2022-02-02] MEDS: Ditropan XL 5 MG PO SCH (10:29)
[2022-02-02] MEDS: Flomax 0.4 MG PO SCH (10:29)
[2022-02-02] MEDS: Klor Con PO SCH ×2 (10:29→21:23)
[2022-02-02] MEDS: PLAVIX Tablet PO SCH (10:29)
[2022-02-02] MEDS: Protonix 40MG Tablet PO SCH (10:29)
[2022-02-02] MEDS: COREG 12.5 MG PO SCH ×2 (10:29→21:23)
[2022-02-02] MEDS: FEOSOL 325 MG PO SCH (10:29)
[2022-02-02] MEDS: ANTIVERT 25 MG PO SCH ×3 (10:29→21:24)
[2022-02-02] MEDS: Zestril 20 MG PO SCH (10:29)
[2022-02-02] MEDS: Amaryl 2 MG PO SCH (10:29)
[2022-02-02] MEDS ORDERED: Sodium Chloride 0.9% 1000 ML 1,000 ML IV SCH (13:15)
--- NOTE | 2022-02-02 20:54 | PCM.HP ---
History of Present Illness - Chief Complaint Chief Complaint: Hypotension History of Present Illness: is a 86 year old male. came to [facility] with c/o very dizzy, had fall and found to have low blood pressure. Patient was transferred to [facility] as per his request. c/o weakness, falls at home, feeling very weak. - Review of Systems Constitutional: Weakness, No Fever, No Chills Eyes: No Symptoms Ears, Nose, & Throat: No Symptoms Respiratory: No Cough, No Short Of Breath Cardiac: No Chest Pain, No Edema, No Syncope Abdominal/Gastrointestinal: No Abdominal Pain, No Nausea, No Vomiting, No Diarrhea Genitourinary Symptoms: No Dysuria Musculoskeletal: Fall, No Back Pain, No Neck Pain Skin: No Rash Neurological: Dizziness, No Focal Weakness, No Sensory Changes Psychological: No Symptoms Endocrine: No Symptoms Hematologic/Lymphatic: No Symptoms Immunological/Allergic: No Symptoms Medications & Allergies Home Medications: Home Medication List Aspirin [Aspir 81] 81 mg PO DAILY 07/23/12 [History Confirmed 02/02/22] Isosorbide Mononitrate 30 mg [Imdur 30 MG] 30 mg PO DAILY 09/21/12 [History Confirmed 02/02/22] Potassium Chloride Tab* [Klor Con] 10 meq PO BID 09/21/12 [History Confirmed 02/02/22] Carvedilol [Coreg ] 12.5 mg PO BID 02/04/15 [History Confirmed 02/02/22] Tamsulosin HCl 0.4 mg [Flomax 0.4 MG] 0.4 mg PO DAILY 08/08/17 [History Confirmed 02/02/22] Clopidogrel Bisulfate [PLAVIX Tablet] 75 mg PO DAILY 04/21/20 [History Confirmed 02/02/22] Vitamin E (Dl,Tocopheryl Acet) [Vitamin E] 100 unit PO DAILY 08/01/20 [History Confirmed 02/02/22] Glimepiride 2 mg [Amaryl 2 MG] 2 mg PO DAILY 09/22/21 [History Confirmed 02/02/22] Metformin HCl [Metformin ER Osmotic] 1,000 mg PO BID 09/22/21 [History Confirmed 02/02/22] Omeprazole 40 mg PO DAILY 12/27/21 [History Confirmed 02/02/22] Pravastatin Sodium 10 mg PO HS 12/27/21 [History Confirmed 02/02/22] Acetaminophen 325 mg [Tylenol 325 mg] 650 mg PO Q6H PRN PRN 02/02/22 [History Confirmed 02/02/22] Ferrous Sulfate [Iron] 325 mg PO DAILY 02/02/22 [History Confirmed 02/02/22] Folic Acid 1 mg PO DAILY 02/02/22 [History Confirmed 02/02/22] Lisinopril/Hydrochlorothiazide [Zestoretic 20-25 mg Tablet] 1 tab PO DAILY 02/02/22 [History Confirmed 02/02/22] Meclizine HCl 12.5 mg PO TID 02/02/22 [History Confirmed 02/02/22] Oxybutynin Chloride Xl 5 mg [Ditropan XL 5 MG] 5 mg PO DAILY 02/02/22 [History Confirmed 02/02/22] Allergies/Adverse Reactions: Allergies Allergy/AdvReac Type Severity Reaction Status Date / Time No Known Drug Allergies Allergy Verified 02/02/22 01:12 - Past Medical History Past Medical History: Yes Neurological History: TIA ENT History: No Pertinent History Cardiac History: Coronary Artery Disease, Hypertension Respiratory History: No Pertinent History Endocrine Medical History: Diabetes Type II Musculoskelatal History: Arthritis GI Medical History: No Pertinent History History: No Pertinent History Pyscho-Social History: No Pertinent History Male Reproductive Disorders: No Pertinent History Comment: Bladder spams, hyperlipidemia, insomnia - Past Surgical History Past Surgical History: Yes Neuro Surgical History: No Pertinent History Cardiac History: Cardiac Catheterization, Cardiac Stent Respiratory Surgery: No Pertinent History GI Surgical History: Hernia Repair Genitourinary Surgical Hx: No Pertinent History Musculskeletal Surgical Hx: Orthopedic Surgery Male Surgical History: No Pertinent History Other Surgical History: Nasal surgery - Social History Smoking Status: Former smoker Exposure to second hand smoke: No Alcohol: None Drug Use: none Significant Family History: no pertinent family hx - Physical Exam Vital Signs: Vital Signs - 24 hr Temp Pulse Resp BP Pulse Ox 02/02/22 20:00 97.8 F 71 20 143/67 96 02/02/22 16:00 97.4 F 75 148/86 97 02/02/22 14:00 63 16 98 02/02/22 12:00 97.8 F 64 17 135/76 97 02/02/22 10:00 61 16 02/02/22 08:00 98.2 F 64 17 149/88 98 02/02/22 06:00 20 02/02/22 05:37 69 20 02/02/22 04:00 97.7 F 67 20 166/89 97 02/02/22 02:08 65 137/94 02/02/22 01:03 97.8 F 61 20 224/98 General Appearance: no apparent distress, alert Neurologic Exam: alert, oriented x 3, cooperative, normal mood/affect, nml cerebellar function, nml station & gait, sensation nml, No motor deficits Eye Exam: PERRL/EOMI, eyes nml inspection Ears, Nose, Throat Exam: normal ENT inspection, TMs normal, pharynx normal, moist mucous membranes Neck Exam: normal inspection, non-tender, supple, full range of motion Respiratory Exam: normal breath sounds, lungs clear, No respiratory distress Cardiovascular Exam: regular rate/rhythm, normal heart sounds, normal peripheral pulses Gastrointestinal/Abdomen Exam: soft, normal bowel sounds, No tenderness, No mass Back Exam: normal inspection, normal range of motion, No CVA tenderness, No v ertebral tenderness Extremity Exam: normal inspection, normal range of motion, pelvis stable Skin Exam: normal color, warm, dry, No rash Lymphatic Exam: No adenopathy Results - Labs Lab/Micro Results: Lab Results-Last 24 Hours 02/02/22 02/02/22 02/02/22 Range/Units 01:00 04:30 04:30 WBC 5.0 (4.0-10.5) x10^3/uL RBC 4.27 (4.1-5.6) x10^6/uL Hgb 13.5 (12.5-18.0) g/dL Hct 40.8 L (42-50) % MCV 95.6 (78-100) fL MCH 31.6 (26-32) pg MCHC 33.1 (32-36) g/dL RDW 13.3 (11.5-14.0) % Plt Count 184 (150-450) x10^3/uL MPV 10.5 (7.5-11.0) fL Gran % 63.6 (36.0-66.0) % Immature Gran % (Auto) 0.2 (0.00-0.4) % Nucleat RBC Rel Count 0.0 (0.00-0.1) % Eos # (Auto) 0.07 (0-0.5) x10^3/uL Immature Gran # (Auto) 0.01 (0.00-0.03) x10^3u/L Absolute Lymphs (auto) 1.20 (1.0-4.6) x10^3/uL Absolute Monos (auto) 0.53 (0.0-1.3) x10^3/uL Absolute Nucleated RBC 0.00 (0.00-0.01) x10^3u/L Lymphocytes % 24.0 (24.0-44.0) % Monocytes % 10.6 (0.0-12.0) % Eosinophils % 1.4 (0.00-5.0) % Basophils % 0.2 (0.0-0.4) % Absolute Granulocytes 3.18 (1.4-6.9) x10^3/uL Basophils # 0.01 (0-0.4) x10^3/uL Sodium 136 L (137-145) mmol/L Potassium 4.0 (3.5-5.1) mmol/L Chloride 107 (98-107) mmol/L Carbon Dioxide 21 L (22-30) mmol/L Anion Gap 11.7 (5-15) MEQ/L BUN 32 H (9-20) mg/dL Creatinine 1.40 H (0.66-1.25) mg/dL Estimated GFR 51.0 ML/MIN Glucose 233 H (74-106) mg/dL POC Glucometer (74 to 106) mg/dL Calcium 9.6 (8.4-10.2) mg/dL Total Bilirubin 0.50 (0.2-1.3) mg/dL AST 23 (17-59) U/L ALT 20 (0-50) U/L Alkaline Phosphatase 63 (38-126) U/L Serum Total Protein 6.1 L (6.3-8.2) g/dL Albumin 3.4 L (3.5-5.0) g/dL Influenza Type A Ag NEGATIVE (NEGATIVE) Influenza Type B Ag NEGATIVE (NEGATIVE) RSV (PCR) NEGATIVE (Negative) SARS-CoV-2 (PCR) POSITIVE A (NEGATIVE) 02/02/22 02/02/22 02/02/22 Range/Units 08:36 12:24 17:30 WBC (4.0-10.5) x10^3/uL RBC (4.1-5.6) x10^6/uL Hgb (12.5-18.0) g/dL Hct (42-50) % MCV (78-100) fL MCH (26-32) pg MCHC (32-36) g/dL RDW (11.5-14.0) % Plt Count (150-450) x10^3/uL MPV (7.5-11.0) fL Gran % (36.0-66.0) % Immature Gran % (Auto) (0.00-0.4) % Nucleat RBC Rel Count (0.00-0.1) % Eos # (Auto) (0-0.5) x10^3/uL Immature Gran # (Auto) (0.00-0.03) x10^3u/L Absolute Lymphs (auto) (1.0-4.6) x10^3/uL Absolute Monos (auto) (0.0-1.3) x10^3/uL Absolute Nucleated RBC (0.00-0.01) x10^3u/L Lymphocytes % (24.0-44.0) % Monocytes % (0.0-12.0) % Eosinophils % (0.00-5.0) % Basophils % (0.0-0.4) % Absolute Granulocytes (1.4-6.9) x10^3/uL Basophils # (0-0.4) x10^3/uL Sodium (137-145) mmol/L Potassium (3.5-5.1) mmol/L Chloride (98-107) mmol/L Carbon Dioxide (22-30) mmol/L Anion Gap (5-15) MEQ/L BUN (9-20) mg/dL Creatinine (0.66-1.25) mg/dL Estimated GFR ML/MIN Glucose (74-106) mg/dL POC Glucometer 136 H 146 H 145 H (74 to 106) mg/dL Calcium (8.4-10.2) mg/dL Total Bilirubin (0.2-1.3) mg/dL AST (17-59) U/L ALT (0-50) U/L Alkaline Phosphatase (38-126) U/L Serum Total Protein (6.3-8.2) g/dL Albumin (3.5-5.0) g/dL Influenza Type A Ag (NEGATIVE) Influenza Type B Ag (NEGATIVE) RSV (PCR) (Negative) SARS-CoV-2 (PCR) (NEGATIVE) Accuchecks Date 02/02/22 Time 09:03 - Radiology Impressions Radiology Exams & Impressions: Radiology Procedures Category Date Time Status CHEST 1 VIEW (PORTABLE) Urgent Exams 02/02/22 13:30 Taken Assessment/Plan (1) COVID-19 Current Visit: Yes Status: Acute Assessment & Plan: Chief Complaint Diagnosis Hypotension Allergies Allergy/AdvReac Type Severity Reaction Status Date / Time No Known Drug Allergies Allergy Verified 02/02/22 01:12 Vital Signs (Last 24 hours) Temp Pulse Resp BP Pulse Ox 02/02/22 20:00 97.8 F 71 20 143/67 96 02/02/22 16:00 97.4 F 75 148/86 97 02/02/22 14:00 63 16 98 02/02/22 12:00 97.8 F 64 17 135/76 97 02/02/22 10:00 61 16 02/02/22 08:00 98.2 F 64 17 149/88 98 02/02/22 06:00 20 02/02/22 05:37 69 20 02/02/22 04:00 97.7 F 67 20 166/89 97 02/02/22 02:08 65 137/94 02/02/22 01:03 97.8 F 61 20 224/98 Home Medications Medication Instructions Recorded Confirmed Last Taken Type Acetaminophen 325 mg [Tylenol 650 mg PO Q6H PRN PRN 02/02/22 02/02/22 Unknown History 325 mg] Ferrous Sulfate [Iron] 325 mg PO DAILY 02/02/22 02/02/22 Unknown History Folic Acid 1 mg PO DAILY 02/02/22 02/02/22 Unknown History Lisinopril/Hydrochlorothiazide 1 tab PO DAILY 02/02/22 02/02/22 Unknown History [Zestoretic 20-25 mg Tablet] Meclizine HCl 12.5 mg PO TID 02/02/22 02/02/22 Unknown History Oxybutynin Chloride Xl 5 mg 5 mg PO DAILY 02/02/22 02/02/22 Unknown History [Ditropan XL 5 MG] Current Medications Generic Name Dose Route Start Last Admin Trade Name Frejayce PRN Reason Stop Dose Admin Acetaminophen 650 mg 02/02/22 07:13 Acetaminophen 325 Mg Tablet PO 03/04/22 07:12 Q6H PRN PRN PAIN, FEVER, HEADACHE Aspirin 81 mg 02/02/22 10:00 02/02/22 10:28 Aspirin 81 Mg Tablet.Ec PO 03/04/22 09:59 81 mg DAILY ART Administration Carvedilol 12.5 mg 02/02/22 10:00 02/02/22 10:29 Carvedilol 12.5 Mg Tablet PO 03/04/22 09:59 12.5 mg BID ART Administration Clopidogrel Bisulfate 75 mg 02/02/22 10:00 02/02/22 10:29 Clopidogrel Bisulfate 75 Mg Tablet PO 03/04/22 09:59 75 mg DAILY ART Administration Ferrous Sulfate 325 mg 02/02/22 10:00 02/02/22 10:29 Ferrous Sulfate 325 Mg Tablet PO 03/04/22 09:59 325 mg DAILY ART Administration Folic Acid 1 mg 02/02/22 10:00 02/02/22 10:28 Folic Acid 1 Mg Tablet PO 03/04/22 09:59 1 mg DAILY ART Administration Glimepiride 2 mg 02/02/22 10:00 02/02/22 10:29 Glimepiride 2 Mg Tablet PO 03/04/22 09:59 2 mg DAILY ART Administration Hydrochlorothiazide 25 mg 02/02/22 10:00 02/02/22 10:28 Hydrochlorothiazide 25 Mg Tablet PO 03/04/22 09:59 25 mg DAILY ART Administration Sodium Chloride 1,000 mls @ 50 mls/hr 02/02/22 13:15 02/02/22 16:37 Sodium Chloride 0.9% 1000 Ml IV 03/04/22 13:14 50 mls/hr .Q20H ATR Administration Isosorbide Mononitrate 30 mg 02/02/22 10:00 02/02/22 10:28 Isosorbide Mononitrate 30 Mg Tab PO 03/04/22 09:59 30 mg DAILY ART Administration Lisinopril 20 mg 02/02/22 10:00 02/02/22 10:29 Lisinopril 20 Mg Tablet PO 03/04/22 09:59 20 mg DAILY ART Administration Meclizine HCl 12.5 mg 02/02/22 10:00 02/02/22 16:35 Meclizine Hcl 25 Mg Tablet PO 03/04/22 09:59 Not Given TID ART Metformin HCl 1,000 mg 02/02/22 10:00 02/02/22 10:29 Metformin Hcl Er 500 Mg Tab PO 03/04/22 09:59 1,000 mg BID ART Administration Oxybutynin Chloride 5 mg 02/02/22 10:00 02/02/22 10:29 Oxybutynin Chloride Xl 5 Mg Tab PO 03/04/22 09:59 5 mg DAILY ART Administration Pantoprazole Sodium 40 mg 02/02/22 10:00 02/02/22 10:29 Protonix (Pantoprazole) 40 Mg Tablet PO 03/04/22 09:59 40 mg DAILY ART Administration Potassium Chloride 10 meq 02/02/22 10:00 02/02/22 10:29 Potassium Chloride Tab 10 Meq Tab PO 03/04/22 09:59 10 meq BID ART Administration Simvastatin 10 mg 02/02/22 22:00 Simvastatin 10 Mg Tablet PO 03/04/22 21:59 HS ART Tamsulosin HCl 0.4 mg 02/02/22 10:00 02/02/22 10:29 Tamsulosin Hcl 0.4 Mg Cap PO 03/04/22 09:59 0.4 mg DAILY ART Administration Vitamin E 400 u 02/02/22 10:00 02/02/22 10:28 Vitamin E 400 Iu Softgel PO 03/04/22 09:59 400 u DAILY ART Administration Discontinued Medications Generic Name Dose Route Start Last Admin Trade Name Freq PRN Reason Stop Dose Admin Non-Formulary Medication 1 tab 02/02/22 10:00 Lisinopril/Hydrochlorothiazide [Zestoretic 20-25 Mg Tablet] PO 03/04/22 09:59 DAILY ART Intake & Output (Last 24 hours) 01/31/22 02/01/22 02/02/22 02/03/22 11:59 11:59 11:59 11:59 Intake Total 440 560 Output Total 300 100 Balance 140 460 Weight 71.6 kg Laboratory Results (Last 24 hours) 02/02/22 02/02/22 02/02/22 17:30 12:24 08:36 WBC RBC Hgb Hct MCV MCH MCHC RDW Plt Count MPV Gran % Immature Gran % (Auto) Nucleat RBC Rel Count Eos # (Auto) Immature Gran # (Auto) Absolute Lymphs (auto) Absolute Monos (auto) Absolute Nucleated RBC Lymphocytes % Monocytes % Eosinophils % Basophils % Absolute Granulocytes Basophils # Sodium Potassium Chloride Carbon Dioxide Anion Gap BUN Creatinine Estimated GFR Glucose POC Glucometer 145 H 146 H 136 H Calcium Total Bilirubin AST ALT Alkaline Phosphatase Serum Total Protein Albumin Influenza Type A Ag Influenza Type B Ag RSV (PCR) SARS-CoV-2 (PCR) 02/02/22 02/02/22 02/02/22 04:30 04:30 01:00 WBC 5.0 RBC 4.27 Hgb 13.5 Hct 40.8 L MCV 95.6 MCH 31.6 MCHC 33.1 RDW 13.3 Plt Count 184 MPV 10.5 Gran % 63.6 Immature Gran % (Auto) 0.2 Nucleat RBC Rel Count 0.0 Eos # (Auto) 0.07 Immature Gran # (Auto) 0.01 Absolute Lymphs (auto) 1.20 Absolute Monos (auto) 0.53 Absolute Nucleated RBC 0.00 Lymphocytes % 24.0 Monocytes % 10.6 Eosinophils % 1.4 Basophils % 0.2 Absolute Granulocytes 3.18 Basophils # 0.01 Sodium 136 L Potassium 4.0 Chloride 107 Carbon Dioxide 21 L Anion Gap 11.7 BUN 32 H Creatinine 1.40 H Estimated GFR 51.0 Glucose 233 H POC Glucometer Calcium 9.6 Total Bilirubin 0.50 AST 23 ALT 20 Alkaline Phosphatase 63 Serum Total Protein 6.1 L Albumin 3.4 L Influenza Type A Ag NEGATIVE Influenza Type B Ag NEGATIVE RSV (PCR) NEGATIVE SARS-CoV-2 (PCR) POSITIVE A Orders (Last 24 hours) Category Date Time Status IV [Change IV to Saline Lock] ROUTINE Care 02/02/22 01:10 Completed POCT Glucose Check ACHS Care 02/02/22 01:[address] in Observation ROUTINE Care 02/02/22 01:09 Active Consistent Carbohydrate Diet 1800 Calorie Diet 02/02/22 Breakfast Active Discharge Planning,Consult Routine Discharge 02/02/22 Active CHEST 1 VIEW (PORTABLE) Urgent Exams 02/02/22 13:30 Taken CBC W DIFF AM.LAB Lab 02/02/22 04:30 Completed CMP AM.LAB Lab 02/02/22 04:30 Completed COVID/FLU/RSV Panel Stat Lab 02/02/22 01:00 Completed POCT GLUCOSE Stat Lab 02/02/22 08:36 Completed POCT GLUCOSE Stat Lab 02/02/22 12:24 Completed POCT GLUCOSE Stat Lab 02/02/22 17:30 Completed Acetaminophen 325 mg [Tylenol 325 mg] Med 02/02/22 07:13 Active 650 mg PO Q6H PRN PRN Aspirin EC 81 mg [Ecotrin 81 mg] Med 02/02/22 10:00 Active 81 mg PO DAILY Carvedilol 12.5 mg [Coreg 12.5 mg] Med 02/02/22 10:00 Active 12.5 mg PO BID Clopidogrel Bisulfate [PLAVIX Tablet] Med 02/02/22 10:00 Active 75 mg PO DAILY Ferrous Sulfate 325 mg [Feosol 325 mg] Med 02/02/22 10:00 Active 325 mg PO DAILY Folic Acid 1 mg [Folate 1 mg] Med 02/02/22 10:00 Active 1 mg PO DAILY Glimepiride 2 mg [Amaryl 2 MG] Med 02/02/22 10:00 Active 2 mg PO DAILY Hydrochlorothiazide 25 mg [hydroDIURIL 25 MG] Med 02/02/22 10:00 Active 25 mg PO DAILY Isosorbide Mononitrate 30 mg [Imdur 30 MG] Med 02/02/22 10:00 Active 30 mg PO DAILY Lisinopril 20 mg [Zestril 20 MG] Med 02/02/22 10:00 Active 20 mg PO DAILY Lisinopril/Hydrochlorothiazide [Zestoretic 20-25 mg Med 02/02/22 10:00 Discontinued Tablet] 1 tab PO DAILY Meclizine HCl 25 mg [Antivert 25 mg] Med 02/02/22 10:00 Active 12.5 mg PO TID Metformin HCl Xr 500 mg [Glucophage XR 500 MG] Med 02/02/22 10:00 Active 1,000 mg PO BID NaCl 0.9% 1000 ml [Sodium Chloride 0.9% 1000 ML] 1,000 Med 02/02/22 13:15 Active ml IV 50 mls/hr Oxybutynin Chloride Xl 5 mg [Ditropan XL 5 MG] Med 02/02/22 10:00 Active 5 mg PO DAILY PANTOPRAZOLE 40 mg Tablet [Protonix 40MG Tablet] Med 02/02/22 10:00 Active 40 mg PO DAILY Potassium Chloride Tab* [Klor Con] Med 02/02/22 10:00 Active 10 meq PO BID Simvastatin 10 mg [Zocor 10MG] Med 02/02/22 22:00 Active 10 mg PO HS Tamsulosin HCl 0.4 mg [Flomax 0.4 MG] Med 02/02/22 10:00 Active 0.4 mg PO DAILY Vitamin E 400 Units [Vitamin E 400 UNIT SOFTGEL] Med 02/02/22 10:00 Active 400 u PO DAILY Patient Care Notes (Last 24 hours) 02/02/22 13:47 Case Management Note by Ekta Tenorio [facility] UNABLE TO TAKE PATIENT UNTIL 02/06/22 Initialized on 02/02/22 13:47 - END OF NOTE 02/02/22 12:18 Case Management Note by Ekta Tenorio PATIENT HAS [facility]. THEY ARE AWARE PATIENT IS HERE. THEY WILL NEED NOTIFIED AT TIME OF DC AT [phone]. THEY WILL NEED FAXED THE DC INSTRUCTIONS, DC MED LIST AND DC SUMMARY ( IF AVAILABLE) TO [phone]. IF PATIENT DISCHARGES TO MD- JUST CALL AND NOTIFY [facility] ( NO NEED TO FAX AT THAT POINT) Initialized on 02/02/22 12:18 - END OF NOTE 02/02/22 12:04 Case Management Note by Ekta Tenorio S/W PATIENT- HE REPORTS HE WILL NEED TO GO TO THE MD IF ABLE TO D/T BEING COVID+ BUT WILL ONLY GO IF HIS MEDICARE WILL PAY FOR IT. HE REPORTS IF HIS MEDICARE DOES NOT PAY HE WILL GO BACK HOME AND HIS SISTER WILL HELP HIM WITH HIS HHC WELL. HE UNDERSTANDS THIS IS COULD BE AN UNSAFE SITUATION IF HE IS TOO WEAK TO CARE FOR HIMSELF. HE, HOWEVER, WAD ADAMENT HE WAS NOT GOING TO PRIVATE PAY FOR ANY NH CARE. HE IS ALSO AWARE WE WILL HAVE TO GET HIM IN SOMEWHERE THAT IS TAKING COVID+ PATIENTS. REFERRALS FAXED TO [facility] Initialized on 02/02/22 12:04 - END OF NOTE 02/02/22 02:00 (created 02/02/22 04:03) Nursing Note by Aleah Steele PT has positive covid test, moved pt to room 109, Dr Garrison notified and has no new orders at this time Initialized on 02/02/22 04:03 - END OF NOTE Code(s): U07.1 - COVID-19 (2) Hypotension Current Visit: Yes Status: Acute Qualifiers: Hypotension type: orthostatic hypotension Qualified Code(s): I95.1 - Orthostatic hypotension Code(s): I95.9 - HYPOTENSION, UNSPECIFIED
[2022-02-02] MEDS ORDERED: Zocor 10MG PO SCH (22:00)
[2022-02-02] MEDS ORDERED: NON-FORMULARY ITEM (Pravastatin Sodium [Pravastatin Sodium] 10 MG Tablet) PO SCH (22:00)
--- NOTE | 2022-02-03 07:57 | PCM.NOTE ---
Date and Time: 02/03/22 0757 Subjective Assessment: doing better - Review of Systems Constitutional: No Fever, No Chills Eyes: No Symptoms Ears, Nose, & Throat: No Symptoms Respiratory: No Cough, No Short Of Breath Cardiac: No Chest Pain, No Edema, No Syncope Abdominal/Gastrointestinal: No Abdominal Pain, No Nausea, No Vomiting, No Diarrhea Genitourinary Symptoms: No Dysuria Musculoskeletal: No Back Pain, No Neck Pain Skin: No Rash Neurological: No Dizziness, No Focal Weakness, No Sensory Changes Psychological: No Symptoms Endocrine: No Symptoms Hematologic/Lymphatic: No Symptoms Immunological/Allergic: No Symptoms Objective Exam General Appearance: no apparent distress, alert Neurologic Exam: alert, oriented x 3, cooperative, normal mood/affect, nml cerebellar function, sensation nml, No motor deficits Skin Exam: normal color, warm, dry Eye Exam: PERRL, EOMI, eyes nml inspection Ears, Nose, Throat Exam: normal ENT inspection, pharynx normal, moist mucous membranes Neck Exam: normal inspection, non-tender, supple, full range of motion Respiratory Exam: normal breath sounds, lungs clear, No respiratory distress Cardiovascular Exam: regular rate/rhythm, normal heart sounds Gastrointestinal/Abdomen Exam: soft, No tenderness, No mass Extremity Exam: normal inspection, normal range of motion Back Exam: normal inspection, normal range of motion, No CVA tenderness, No vertebral tenderness Male Genitalia Exam: deferred Rectal Exam: deferred OBJECTIVE DATA Vital Signs: Vital Signs - 24 hr Temp Pulse Resp BP Pulse Ox 02/03/22 06:00 71 16 02/03/22 05:58 20 02/03/22 04:00 98.0 F 60 20 149/70 96 02/03/22 02:00 59 L 18 95 02/03/22 00:00 97.8 F 74 20 110/66 95 02/02/22 22:00 71 20 96 02/02/22 20:00 97.8 F 71 20 143/67 96 02/02/22 16:00 97.4 F 75 148/86 97 02/02/22 14:00 63 16 98 02/02/22 12:00 97.8 F 64 17 135/76 97 02/02/22 10:00 61 16 02/02/22 08:00 98.2 F 64 17 149/88 98 Pain Assessment - Last Documented Pain Intensity 0 Intake and Output: Intake & Output 01/31/22 02/01/22 02/02/22 02/03/22 11:59 11:59 11:59 11:59 Intake Total 440 1527 Output Total 300 850 Balance 140 677 Weight 71.6 kg Lab Results: Lab Results-Last 24 Hours 02/02/22 02/02/22 02/02/22 Range/Units 08:36 12:24 17:30 POC Glucometer 136 H 146 H 145 H (74 to 106) mg/dL 02/02/22 Range/Units 21:13 POC Glucometer 143 H (74 to 106) mg/dL Radiology Exams: Radiology Procedures Category Date Time Status CHEST 1 VIEW (PORTABLE) Urgent Exams 02/02/22 13:30 Taken Multi-Disciplinary Progress Notes: Multi-Disciplinary Progress Notes 02/02/22 13:47 Case Management Note by Ekta Tenorio [facility] UNABLE TO TAKE PATIENT UNTIL 02/06/22 Initialized on 02/02/22 13:47 - END OF NOTE 02/02/22 12:18 Case Management Note by Ekta Tenorio PATIENT HAS [facility]. THEY ARE AWARE PATIENT IS HERE. THEY WILL NEED NOTIFIED AT TIME OF DC AT [phone]. THEY WILL NEED FAXED THE DC INSTRUCTIONS, DC MED LIST AND DC SUMMARY ( IF AVAILABLE) TO [phone]. IF PATIENT DISCHARGES TO CT- JUST CALL AND NOTIFY [facility] ( NO NEED TO FAX AT THAT POINT) Initialized on 02/02/22 12:18 - END OF NOTE 02/02/22 12:04 Case Management Note by Ekta Tenorio S/W PATIENT- HE REPORTS HE WILL NEED TO GO TO THE CT IF ABLE TO D/T BEING COVID+ BUT WILL ONLY GO IF HIS MEDICARE WILL PAY FOR IT. HE REPORTS IF HIS MEDICARE DOES NOT PAY HE WILL GO BACK HOME AND HIS SISTER WILL HELP HIM WITH HIS HHC WELL. HE UNDERSTANDS THIS IS COULD BE AN UNSAFE SITUATION IF HE IS TOO WEAK TO CARE FOR HIMSELF. HE, HOWEVER, WAD ADAMENT HE WAS NOT GOING TO PRIVATE PAY FOR ANY NH CARE. HE IS ALSO AWARE WE WILL HAVE TO GET HIM IN SOMEWHERE THAT IS TAKING COVID+ PATIENTS. REFERRALS FAXED TO [facility] Initialized on 02/02/22 12:04 - END OF NOTE Assessment/Plan (1) COVID-19 Current Visit: Yes Status: Acute Assessment & Plan: Chief Complaint Diagnosis Hypotension Allergies Allergy/AdvReac Type Severity Reaction Status Date / Time No Known Drug Allergies Allergy Verified 02/02/22 01:12 Vital Signs (Last 24 hours) Temp Pulse Resp BP Pulse Ox 02/03/22 06:00 71 16 02/03/22 05:58 20 02/03/22 04:00 98.0 F 60 20 149/70 96 02/03/22 02:00 59 L 18 95 02/03/22 00:00 97.8 F 74 20 110/66 95 02/02/22 22:00 71 20 96 02/02/22 20:00 97.8 F 71 20 143/67 96 02/02/22 16:00 97.4 F 75 148/86 97 02/02/22 14:00 63 16 98 02/02/22 12:00 97.8 F 64 17 135/76 97 02/02/22 10:00 61 16 02/02/22 08:00 98.2 F 64 17 149/88 98 Home Medications Medication Instructions Recorded Confirmed Last Taken Type Acetaminophen 325 mg [Tylenol 650 mg PO Q6H PRN PRN 02/02/22 02/02/22 Unknown History 325 mg] Ferrous Sulfate [Iron] 325 mg PO DAILY 02/02/22 02/02/22 Unknown History Folic Acid 1 mg PO DAILY 02/02/22 02/02/22 Unknown History Lisinopril/Hydrochlorothiazide 1 tab PO DAILY 02/02/22 02/02/22 Unknown History [Zestoretic 20-25 mg Tablet] Meclizine HCl 12.5 mg PO TID 02/02/22 02/02/22 Unknown History Oxybutynin Chloride Xl 5 mg 5 mg PO DAILY 02/02/22 02/02/22 Unknown History [Ditropan XL 5 MG] Current Medications Generic Name Dose Route Start Last Admin Trade Name Freq PRN Reason Stop Dose Admin Acetaminophen 650 mg 02/02/22 07:13 Acetaminophen 325 Mg Tablet PO 03/04/22 07:12 Q6H PRN PRN PAIN, FEVER, HEADACHE Aspirin 81 mg 02/02/22 10:00 02/02/22 10:28 Aspirin 81 Mg Tablet.Ec PO 03/04/22 09:59 81 mg DAILY ART Administration Carvedilol 12.5 mg 02/02/22 10:00 02/02/22 21:23 Carvedilol 12.5 Mg Tablet PO 03/04/22 09:59 12.5 mg BID ART Administration Clopidogrel Bisulfate 75 mg 02/02/22 10:00 02/02/22 10:29 Clopidogrel Bisulfate 75 Mg Tablet PO 03/04/22 09:59 75 mg DAILY ART Administration Ferrous Sulfate 325 mg 02/02/22 10:00 02/02/22 10:29 Ferrous Sulfate 325 Mg Tablet PO 03/04/22 09:59 325 mg DAILY ART Administration Folic Acid 1 mg 02/02/22 10:00 02/02/22 10:28 Folic Acid 1 Mg Tablet PO 03/04/22 09:59 1 mg DAILY ART Administration Glimepiride 2 mg 02/02/22 10:00 02/02/22 10:29 Glimepiride 2 Mg Tablet PO 03/04/22 09:59 2 mg DAILY ART Administration Hydrochlorothiazide 25 mg 02/02/22 10:00 02/02/22 10:28 Hydrochlorothiazide 25 Mg Tablet PO 03/04/22 09:59 25 mg DAILY ART Administration Sodium Chloride 1,000 mls @ 50 mls/hr 02/02/22 13:15 02/02/22 16:37 Sodium Chloride 0.9% 1000 Ml IV 03/04/22 13:14 50 mls/hr .Q20H ART Administration Isosorbide Mononitrate 30 mg 02/02/22 10:00 02/02/22 10:28 Isosorbide Mononitrate 30 Mg Tab PO 03/04/22 09:59 30 mg DAILY ART Administration Lisinopril 20 mg 02/02/22 10:00 02/02/22 10:29 Lisinopril 20 Mg Tablet PO 03/04/22 09:59 20 mg DAILY ART Administration Meclizine HCl 12.5 mg 02/02/22 10:00 02/02/22 21:24 Meclizine Hcl 25 Mg Tablet PO 03/04/22 09:59 12.5 mg TID ART Administration Metformin HCl 1,000 mg 02/02/22 10:00 02/02/22 21:23 Metformin Hcl Er 500 Mg Tab PO 03/04/22 09:59 1,000 mg BID ART Administration Oxybutynin Chloride 5 mg 02/02/22 10:00 02/02/22 10:29 Oxybutynin Chloride Xl 5 Mg Tab PO 03/04/22 09:59 5 mg DAILY ART Administration Pantoprazole Sodium 40 mg 02/02/22 10:00 02/02/22 10:29 Protonix (Pantoprazole) 40 Mg Tablet PO 03/04/22 09:59 40 mg DAILY ART Administration Potassium Chloride 10 meq 02/02/22 10:00 02/02/22 21:23 Potassium Chloride Tab 10 Meq Tab PO 03/04/22 09:59 10 meq BID ART Administration Simvastatin 10 mg 02/02/22 22:00 02/02/22 21:23 Simvastatin 10 Mg Tablet PO 03/04/22 21:59 10 mg HS ART Administration Tamsulosin HCl 0.4 mg 02/02/22 10:00 02/02/22 10:29 Tamsulosin Hcl 0.4 Mg Cap PO 03/04/22 09:59 0.4 mg DAILY ART Administration Vitamin E 400 u 02/02/22 10:00 02/02/22 10:28 Vitamin E 400 Iu Softgel PO 03/04/22 09:59 400 u DAILY ART Administration Discontinued Medications Generic Name Dose Route Start Last Admin Trade Name Freq PRN Reason Stop Dose Admin Non-Formulary Medication 1 tab 02/02/22 10:00 Lisinopril/Hydrochlorothiazide [Zestoretic 20-25 Mg Tablet] PO 03/04/22 09:59 DAILY ART Intake & Output (Last 24 hours) 01/31/22 02/01/22 02/02/22 02/03/22 11:59 11:59 11:59 11:59 Intake Total 440 1527 Output Total 300 850 Balance 140 677 Weight 71.6 kg Laboratory Results (Last 24 hours) 02/02/22 02/02/22 02/02/22 21:13 17:30 12:24 POC Glucometer 143 H 145 H 146 H 02/02/22 08:36 POC Glucometer 136 H Orders (Last 24 hours) Category Date Time Status Consistent Carbohydrate Diet 1800 Calorie Diet 02/02/22 Breakfast Active CHEST 1 VIEW (PORTABLE) Urgent Exams 02/02/22 13:30 Taken POCT GLUCOSE Stat Lab 02/02/22 08:36 Completed POCT GLUCOSE Stat Lab 02/02/22 12:24 Completed POCT GLUCOSE Stat Lab 02/02/22 17:30 Completed POCT GLUCOSE Stat Lab 02/02/22 21:13 Completed Acetaminophen 325 mg [Tylenol 325 mg] Med 02/02/22 07:13 Active 650 mg PO Q6H PRN PRN Aspirin EC 81 mg [Ecotrin 81 mg] Med 02/02/22 10:00 Active 81 mg PO DAILY Carvedilol 12.5 mg [Coreg 12.5 mg] Med 02/02/22 10:00 Active 12.5 mg PO BID Clopidogrel Bisulfate [PLAVIX Tablet] Med 02/02/22 10:00 Active 75 mg PO DAILY Ferrous Sulfate 325 mg [Feosol 325 mg] Med 02/02/22 10:00 Active 325 mg PO DAILY Folic Acid 1 mg [Folate 1 mg] Med 02/02/22 10:00 Active 1 mg PO DAILY Glimepiride 2 mg [Amaryl 2 MG] Med 02/02/22 10:00 Active 2 mg PO DAILY Hydrochlorothiazide 25 mg [hydroDIURIL 25 MG] Med 02/02/22 10:00 Active 25 mg PO DAILY Isosorbide Mononitrate 30 mg [Imdur 30 MG] Med 02/02/22 10:00 Active 30 mg PO DAILY Lisinopril 20 mg [Zestril 20 MG] Med 02/02/22 10:00 Active 20 mg PO DAILY Lisinopril/Hydrochlorothiazide [Zestoretic 20-25 mg Med 02/02/22 10:00 Discontinued Tablet] 1 tab PO DAILY Meclizine HCl 25 mg [Antivert 25 mg] Med 02/02/22 10:00 Active 12.5 mg PO TID Metformin HCl Xr 500 mg [Glucophage XR 500 MG] Med 02/02/22 10:00 Active 1,000 mg PO BID NaCl 0.9% 1000 ml [Sodium Chloride 0.9% 1000 ML] 1,000 Med 02/02/22 13:15 Active ml IV 50 mls/hr Oxybutynin Chloride Xl 5 mg [Ditropan XL 5 MG] Med 02/02/22 10:00 Active 5 mg PO DAILY PANTOPRAZOLE 40 mg Tablet [Protonix 40MG Tablet] Med 02/02/22 10:00 Active 40 mg PO DAILY Potassium Chloride Tab* [Klor Con] Med 02/02/22 10:00 Active 10 meq PO BID Simvastatin 10 mg [Zocor 10MG] Med 02/02/22 22:00 Active 10 mg PO HS Tamsulosin HCl 0.4 mg [Flomax 0.4 MG] Med 02/02/22 10:00 Active 0.4 mg PO DAILY Vitamin E 400 Units [Vitamin E 400 UNIT SOFTGEL] Med 02/02/22 10:00 Active 400 u PO DAILY Patient Care Notes (Last 24 hours) 02/02/22 13:47 Case Management Note by Ekta Tenorio SIGNATURE UNABLE TO TAKE PATIENT UNTIL 02/06/22 Initialized on 02/02/22 13:47 - END OF NOTE 02/02/22 12:18 Case Management Note by Ekta Tenorio PATIENT HAS [facility]. THEY ARE AWARE PATIENT IS HERE. THEY WILL NEED NOTIFIED AT TIME OF DC AT [phone]. THEY WILL NEED FAXED THE DC INSTRUCTIONS, DC MED LIST AND DC SUMMARY ( IF AVAILABLE) TO [phone]. IF PATIENT DISCHARGES TO NH- JUST CALL AND NOTIFY [facility] ( NO NEED TO FAX AT THAT POINT) Initialized on 02/02/22 12:18 - END OF NOTE 02/02/22 12:04 Case Management Note by Ekta Tenorio S/W PATIENT- HE REPORTS HE WILL NEED TO GO TO THE NH IF ABLE TO D/T BEING COVID+ BUT WILL ONLY GO IF HIS MEDICARE WILL PAY FOR IT. HE REPORTS IF HIS MEDICARE DOES NOT PAY HE WILL GO BACK HOME AND HIS SISTER WILL HELP HIM WITH HIS C WELL. HE UNDERSTANDS THIS IS COULD BE AN UNSAFE SITUATION IF HE IS TOO WEAK TO CARE FOR HIMSELF. HE, HOWEVER, WAD ADAMENT HE WAS NOT GOING TO PRIVATE PAY FOR ANY NH CARE. HE IS ALSO AWARE WE WILL HAVE TO GET HIM IN SOMEWHERE THAT IS TAKING COVID+ PATIENTS. REFERRALS FAXED TO [facility] Initialized on 02/02/22 12:04 - END OF NOTE Code(s): U07.1 - COVID-19 (2) Hypotension Current Visit: Yes Status: Acute Qualifiers: Hypotension type: orthostatic hypotension Qualified Code(s): I95.1 - Orthostatic hypotension Code(s): I95.9 - HYPOTENSION, UNSPECIFIED
--- NOTE | 2022-02-03 08:46 | XRAY ---
Exam: AP upright portable chest film from 02/02/2022. Comparison: AP semiupright portable chest film from 12/27/2021. Indication: Covid-19. Findings: The heart size and contour are unremarkable. Atherosclerotic vascular calcification is seen within the aortic arch, and there is slight tortuosity of the descending thoracic aorta. The remainder of the eliezer and mediastinal structures appeas unremarkable. The lungs are well expanded. Minimal increased nonspecific lung markings are seen at the lateral left lung base, likely due to subtle plate atelectasis or chronic changes. The remainder of the lung sheikh appears clear. The pulmonary vascularity is normal. Mild biapical pleural thickening is seen. No pneumothorax or pleural effusion is seen. The patient is rotated slightly toward the left. There is mild elevation of the right humeral head with respect to the glenoid within the right shoulder, likely due to chronic rotator cuff disease. 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 The left acromioclavicular joint has been barely cut off. Bone demineralization, slight convexity of the lower midthoracic spine toward the right, and mid and lower thoracic spondylosis are seen. Impression: 1. Minimal increased markings at lateral left lung base which I believe are nonspecific and are likely due to plate atelectasis. No groundglass opacity or airspace infiltrate is seen. 2. No other acute cardiopulmonary disease is seen.
[2022-02-03] MEDS: COREG 12.5 MG PO SCH (09:37)
[2022-02-03] MEDS: Imdur 30 MG PO SCH (09:37)
[2022-02-03] MEDS: PLAVIX Tablet PO SCH (09:37)
[2022-02-03] MEDS: Ditropan XL 5 MG PO SCH (09:37)
[2022-02-03] MEDS: Protonix 40MG Tablet PO SCH (09:37)
[2022-02-03] MEDS: FEOSOL 325 MG PO SCH (09:37)
[2022-02-03] MEDS: Amaryl 2 MG PO SCH (09:37)
[2022-02-03] MEDS: FOLATE 1 MG PO SCH (09:37)
[2022-02-03] MEDS: Flomax 0.4 MG PO SCH (09:37)
[2022-02-03] MEDS: Glucophage XR 500 MG PO SCH (09:37)
[2022-02-03] MEDS: ECOTRIN 81 MG PO SCH (09:37)
[2022-02-03] MEDS: Klor Con PO SCH (09:38)
[2022-02-03] MEDS: hydroDIURIL 25 MG PO SCH (09:38)
[2022-02-03] MEDS: ANTIVERT 25 MG PO SCH (09:38)
[2022-02-03] MEDS: Zestril 20 MG PO SCH (09:38)
[2022-02-03] MEDS: Vitamin E 400 UNIT SOFTGEL PO SCH (10:55)
[2022-02-03 12:06] VITALS: BP 180/86; PULSE 65; O2SAT 98
--- NOTE | 2022-02-03 20:10 | PCM.DS ---
Discharge Summary Date of Admission: 02/02/22 01:01 Admitting Physician: TIMOTHY PONCE Primary Care Provider: TIMOTHY PONCE Allergies Allergies No Known Drug Allergies Allergy (Verified 02/02/22 01:12) Hospital Summary - Hospital Course Hospital Course: Chief Complaint Diagnosis Hypotension Allergies Allergy/AdvReac Type Severity Reaction Status Date / Time No Known Drug Allergies Allergy Verified 02/02/22 01:12 Vital Signs (Last 24 hours) Temp Pulse Resp BP Pulse Ox 02/03/22 12:00 97.7 F 65 14 180/86 98 02/03/22 10:00 12 02/03/22 08:00 97.7 F 61 14 152/81 02/03/22 06:00 71 16 02/03/22 05:58 20 02/03/22 04:00 98.0 F 60 20 149/70 96 02/03/22 02:00 59 L 18 95 02/03/22 00:00 97.8 F 74 20 110/66 95 02/02/22 22:00 71 20 96 Home Medications Medication Instructions Recorded Confirmed Last Taken Type Acetaminophen 325 mg [Tylenol 650 mg PO Q6H PRN PRN 02/02/22 02/02/22 Unknown History 325 mg] Ferrous Sulfate [Iron] 325 mg PO DAILY 02/02/22 02/02/22 Unknown History Folic Acid 1 mg PO DAILY 02/02/22 02/02/22 Unknown History Lisinopril/Hydrochlorothiazide 1 tab PO DAILY 02/02/22 02/02/22 Unknown History [Zestoretic 20-25 mg Tablet] Meclizine HCl 12.5 mg PO TID 02/02/22 02/02/22 Unknown History Oxybutynin Chloride Xl 5 mg 5 mg PO DAILY 02/02/22 02/02/22 Unknown History [Ditropan XL 5 MG] Current Medications Discontinued Medications Generic Name Dose Route Start Last Admin Trade Name Freq PRN Reason Stop Dose Admin Acetaminophen 650 mg 02/02/22 07:13 Acetaminophen 325 Mg Tablet PO 03/04/22 07:12 Q6H PRN PRN PAIN, FEVER, HEADACHE Aspirin 81 mg 02/02/22 10:00 02/03/22 09:37 Aspirin 81 Mg Tablet.Ec PO 03/04/22 09:59 81 mg DAILY ART Administration Carvedilol 12.5 mg 02/02/22 10:00 02/03/22 09:37 Carvedilol 12.5 Mg Tablet PO 03/04/22 09:59 12.5 mg BID ART Administration Clopidogrel Bisulfate 75 mg 02/02/22 10:00 02/03/22 09:37 Clopidogrel Bisulfate 75 Mg Tablet PO 03/04/22 09:59 75 mg DAILY ART Administration Ferrous Sulfate 325 mg 02/02/22 10:00 02/03/22 09:37 Ferrous Sulfate 325 Mg Tablet PO 03/04/22 09:59 325 mg DAILY ART Administration Folic Acid 1 mg 02/02/22 10:00 02/03/22 09:37 Folic Acid 1 Mg Tablet PO 03/04/22 09:59 1 mg DAILY ART Administration Glimepiride 2 mg 02/02/22 10:00 02/03/22 09:37 Glimepiride 2 Mg Tablet PO 03/04/22 09:59 2 mg DAILY ART Administration Hydrochlorothiazide 25 mg 02/02/22 10:00 02/03/22 09:38 Hydrochlorothiazide 25 Mg Tablet PO 03/04/22 09:59 25 mg DAILY ART Administration Sodium Chloride 1,000 mls @ 50 mls/hr 02/02/22 13:15 02/02/22 16:37 Sodium Chloride 0.9% 1000 Ml IV 03/04/22 13:14 50 mls/hr .Q20H ART Administration Isosorbide Mononitrate 30 mg 02/02/22 10:00 02/03/22 09:37 Isosorbide Mononitrate 30 Mg Tab PO 03/04/22 09:59 30 mg DAILY ART Administration Lisinopril 20 mg 02/02/22 10:00 02/03/22 09:38 Lisinopril 20 Mg Tablet PO 03/04/22 09:59 20 mg DAILY ART Administration Meclizine HCl 12.5 mg 02/02/22 10:00 02/03/22 09:38 Meclizine Hcl 25 Mg Tablet PO 03/04/22 09:59 12.5 mg TID ART Administration Metformin HCl 1,000 mg 02/02/22 10:00 02/03/22 09:37 Metformin Hcl Er 500 Mg Tab PO 03/04/22 09:59 1,000 mg BID ART Administration Non-Formulary Medication 1 tab 02/02/22 10:00 Lisinopril/Hydrochlorothiazide [Zestoretic 20-25 Mg Tablet] PO 03/04/22 09:59 DAILY ART Oxybutynin Chloride 5 mg 02/02/22 10:00 02/03/22 09:37 Oxybutynin Chloride Xl 5 Mg Tab PO 03/04/22 09:59 5 mg DAILY ART Administration Pantoprazole Sodium 40 mg 02/02/22 10:00 02/03/22 09:37 Protonix (Pantoprazole) 40 Mg Tablet PO 03/04/22 09:59 40 mg DAILY ART Administration Potassium Chloride 10 meq 02/02/22 10:00 02/03/22 09:38 Potassium Chloride Tab 10 Meq Tab PO 03/04/22 09:59 10 meq BID ART Administration Simvastatin 10 mg 02/02/22 22:00 02/02/22 21:23 Simvastatin 10 Mg Tablet PO 03/04/22 21:59 10 mg HS ART Administration Tamsulosin HCl 0.4 mg 02/02/22 10:00 02/03/22 09:37 Tamsulosin Hcl 0.4 Mg Cap PO 03/04/22 09:59 0.4 mg DAILY ART Administration Vitamin E 400 u 02/02/22 10:00 02/03/22 10:55 Vitamin E 400 Iu Softgel PO 03/04/22 09:59 400 u DAILY ART Administration Intake & Output (Last 24 hours) 02/01/22 02/02/22 02/03/22 02/04/22 11:59 11:59 11:59 11:59 Intake Total 440 1887 716 Output Total 300 1200 Balance 140 687 716 Weight 71.6 kg Laboratory Results (Last 24 hours) 02/03/22 02/03/22 02/02/22 11:39 08:14 21:13 POC Glucometer 128 H 136 H 143 H Orders (Last 24 hours) Category Date Time Status Discharge Routine Discharge 02/03/22 Ordered Discharge/Telephone Order Routine Discharge 02/03/22 Active POCT GLUCOSE Stat Lab 02/02/22 21:13 Completed POCT GLUCOSE Stat Lab 02/03/22 08:14 Completed POCT GLUCOSE Stat Lab 02/03/22 11:39 Completed Simvastatin 10 mg [Zocor 10MG] Med 02/02/22 22:00 Discontinued 10 mg PO HS Patient Care Notes (Last 24 hours) 02/03/22 13:15 (created 02/03/22 13:24) Nursing Note by Trixie Lino Discharge instructions, summary of care, home meds, and follow-up appointment reviewed with pt. Verbalized understanding. Pt. escorted to car via w/c and left in care of sister. [facility] will follow pt at home. 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 Initialized on 02/03/22 13:24 - END OF NOTE 02/03/22 11:56 Case Management Note by Ekta Tenorio S/[facility]- PATIENT HAS EXHAUSTED HIS MEDICARE BENEFITS AND DOES NOT HAVE ENOUGH DAYS LEFT TO COVER A ANOTHER NH STAY. PATIENT NOTIFIED- HE AGAIN IS REFUSING TO PRIVATE PAY FOR NH CARE. HE REPORTS HE HAS SOME MONEY BUT DOES NOT W FANY TO SPEND IT ON REHAB PLACEMENT. HE REPORTS HE WILL RETURN HOME. HE UNDERSTANDS THIS COULD BE UNSAFE BUT WISHES TO PROCEED S/W SISTER [employer]IT[employer]- SHE UNDERSTANDS THAT PATIENT WILL NOT PAY FOR NH. SHE WILL STAY WITH PATIENT TO ASSIST HIM MUCH SHE CAN. SHE WAS ADVISED TO WEAR A MASK AND LIMIT CONTACT AND KEEP DISTANCE MUCH POSSIBLE. SHE VERIFIED UNDERSTANDING. PATIENT HAS [facility]- THIS WILL RESUME. Initialized on 02/03/22 11:56 - END OF NOTE - Vitals & Intake/Output Vital Signs: Vital Signs Temperature 97.7 F 02/03/22 12:00 Pulse Rate 65 02/03/22 12:00 Respiratory Rate 14 02/03/22 12:00 Blood Pressure 180/86 02/03/22 12:00 O2 Sat by Pulse Oximetry 98 02/03/22 12:00 Intake & Output: Intake & Output 02/01/22 02/02/22 02/03/22 02/04/22 11:59 11:59 11:59 11:59 Intake Total 440 1887 716 Output Total 300 1200 Balance 140 687 716 Weight 71.6 kg - Lab Result Diagrams: 02/02/22 04:30 02/02/22 04:30 Lab Results-Last 24 Hrs: Lab Results-Last 24 Hours 02/02/22 02/03/22 02/03/22 Range/Units 21:13 08:14 11:39 POC Glucometer 143 H 136 H 128 H (74 to 106) mg/dL Micro Results-Entire Visit: Accuchecks Date 02/03/22 Date 02/03/22 Time 12:00 Time 08:00 - Radiology Exams Ordered Rad Exams-Entire Visit: Radiology Procedures Category Date Time Status CHEST 1 VIEW (PORTABLE) Urgent Exams 02/02/22 13:30 Completed Discharge Exam General Appearance: no apparent distress, alert Neurologic Exam: alert, oriented x 3, cooperative, normal mood/affect, nml cerebellar function, sensation nml, No motor deficits Eye Exam: PERRL, EOMI, eyes nml inspection Ears, Nose, Throat Exam: normal ENT inspection, pharynx normal, moist mucous membranes Neck Exam: normal inspection, non-tender, supple, full range of motion Respiratory Exam: normal breath sounds, lungs clear, No respiratory distress Cardiovascular Exam: regular rate/rhythm, normal heart sounds Gastrointestinal/Abdomen Exam: soft, No tenderness, No mass Male Genitalia Exam: deferred Rectal Exam: deferred Back Exam: normal inspection, normal range of motion, No CVA tenderness, No vertebral tenderness Extremity Exam: normal inspection, normal range of motion Skin Exam: normal color, warm, dry Final Diagnosis/Problem List - Final Discharge Diagnosis/Problem (1) COVID-19 Status: Resolved Code(s): U07.1 - COVID-19 (2) Hypotension Status: Resolved Code(s): I95.9 - HYPOTENSION, UNSPECIFIED - Discharge Discharge Date: 02/03/22 Disposition: Home, Self-Care Condition: Stable Prescriptions: Continue Aspirin [Aspir 81] 81 mg PO DAILY Isosorbide Mononitrate 30 mg [Imdur 30 MG] 30 mg PO DAILY Potassium Chloride Tab* [Klor Con] 10 meq PO BID Carvedilol [Coreg ] 12.5 mg PO BID Tamsulosin HCl 0.4 mg [Flomax 0.4 MG] 0.4 mg PO DAILY Clopidogrel Bisulfate [PLAVIX Tablet] 75 mg PO DAILY Vitamin E (Dl,Tocopheryl Acet) [Vitamin E] 100 unit PO DAILY Metformin HCl [Metformin ER Osmotic] 1,000 mg PO BID Glimepiride 2 mg [Amaryl 2 MG] 2 mg PO DAILY Pravastatin Sodium 10 mg PO HS Omeprazole 40 mg PO DAILY Oxybutynin Chloride Xl 5 mg [Ditropan XL 5 MG] 5 mg PO DAILY Ferrous Sulfate [Iron] 325 mg PO DAILY Acetaminophen 325 mg [Tylenol 325 mg] 650 mg PO Q6H PRN PRN PRN Reason: Pain, Fever, Headache Folic Acid 1 mg PO DAILY Meclizine HCl 12.5 mg PO TID Lisinopril/Hydrochlorothiazide [Zestoretic 20-25 mg Tablet] 1 tab PO DAILY Instructions: COVID-19 (DC) Additional Instructions: [facility] WILL RESUME Follow up with: TIMOTHY PONCE MD [Primary Care Provider] - 02/10/22 1:30 pm Forms: Discharge Instructions
== END 2022-02-03 13:15 | disposition home or self-care (01) ==
LOC: MED SURG 01:01
PROVIDERS: ADMIT General Practice; ATTEND General Practice
DX: U07.1 COVID-19 (principal); I95.9 Hypotension, unspecified; I25.10 Atherosclerotic heart disease of native coronary artery without angina pectoris; I10 Essential (primary) hypertension; E11.9 Type 2 diabetes mellitus without complications; W18.30XA Fall on same level, unspecified, initial encounter; Z79.01 Long term (current) use of anticoagulants; Z79.899 Other long term (current) drug therapy; Z20.828 Contact with and (suspected) exposure to other viral communicable diseases
CPT/HCPCS: 0241U; 36415; 71045; 80053; 82947; 85025; 93268; A9270-GY; G0378